=== PATIENT | female | born 1955 | race Caucasian/White ===

== ENCOUNTER → 2017-06-20 13:33 | Outpatient (CLI) | payer OTHER, SELFPAY ==
[2017-06-20 15:56] LABS: Amphetamine Urine VISTA NEGATIVE (<1000 ng/mL); Barbiturate Urine VISTA NEGATIVE (< 200 ng/mL); Benzodiazepine Urine VISTA POSITIVE (< 200 ng/mL); Cocaine Urine VISTA NEGATIVE (< 300 ng/mL); Ecstacy Urine VISTA NEGATIVE (< 500 ng/mL); Methadone Urine VISTA NEGATIVE (< 300 ng/mL); PCP Urine VISTA NEGATIVE (< 25 ng/mL); THC Urine VISTA NEGATIVE (< 50 ng/mL); Vista UDS pH Range 6
== END ==
LOC: LAB 13:38
PROVIDERS: Family Provider Preventive Medicine Occupational Medicine; PCP Preventive Medicine Occupational Medicine; Visit Provider Anesthesiology Pain Medicine
DX: F11.20 Opioid dependence, uncomplicated (principal)
CPT/HCPCS: 80307

== ENCOUNTER → 2017-07-18 13:35 | Outpatient (CLI) | payer OTHER, SELFPAY ==
--- NOTE | 2017-07-18 13:50 | RAD_ITS ---
STUDY: X-RAY - LUMBAR SPINE REASON FOR EXAM: Female, 62 years old. No known injury with pain across the lower back for one month. TECHNIQUE: 3 view(s) of the lumbar spine were obtained. COMPARISON: None FINDINGS: Normal lumbar lordosis. There is no substantial scoliosis. There is a normal alignment of the vertebrae. There is multilevel endplate spondylosis of the lumbar vertebrae. Degenerative disc changes at L5/S1 are present with compounding facet arthropathy. The soft tissue structures are unremarkable. RAD/Lumbar Spine 2 or 3 Views IMPRESSION: Endplate degenerative changes with predominant disc degenerative change at L5/S1 with compounding facet arthropathy, osseous foraminal narrowing is not excluded. Electronically Signed: Anatoliy Narvaez DO at 21:02 EDT , Service support ,
[2017-07-18 14:39] LABS: Amphetamine Urine VISTA NEGATIVE (<1000 ng/mL); Barbiturate Urine VISTA NEGATIVE (< 200 ng/mL); Benzodiazepine Urine VISTA POSITIVE (< 200 ng/mL); Cocaine Urine VISTA NEGATIVE (< 300 ng/mL); Ecstacy Urine VISTA NEGATIVE (< 500 ng/mL); Methadone Urine VISTA NEGATIVE (< 300 ng/mL); PCP Urine VISTA NEGATIVE (< 25 ng/mL); THC Urine VISTA NEGATIVE (< 50 ng/mL); Vista UDS pH Range 6
== END ==
PROVIDERS: Family Provider Preventive Medicine Occupational Medicine; PCP Preventive Medicine Occupational Medicine; Visit Provider Anesthesiology Pain Medicine
DX: F11.20 Opioid dependence, uncomplicated (principal); M54.5 Low back pain
CPT/HCPCS: 72100; 80307

== ENCOUNTER → 2018-01-06 13:40 | Outpatient (CLI) | payer MEDICARE, SELFPAY ==
--- NOTE | 2018-01-06 13:43 | BI_ITS ---
MAMMOGRAPHY - BILATERAL SCREENING REASON FOR EXAM: Female, 62 years old. Routine annual screening examination. PERTINENT HISTORY: Sister with breast cancer. Aunt with breast cancer. TECHNIQUE: Digital bilateral breast ceferino (3D mammographic acquisition) in the CC and MLO projections. 2-D mediolateral oblique (MLO) and craniocaudad (CC) views of both breasts were obtained. CAD: Full Field Digital Mammography with Computer Added Detection was performed. COMPARISON: Comparison is made with prior study dated July 31, 2012 and September 01, 2010. FINDINGS: Breast Composition: The breasts are extremely dense, which lowers the sensitivity of mammography. There are no dominant masses or suspicious calcifications. Stable small right lateral benign appearing axillary lymph nodes. No other significant abnormalities are identified. There has been no significant change since the prior study. BI/SCREENING MAMM (CAD), BILAT IMPRESSION: Stable bilateral screening mammogram. Yearly follow-up mammogram recommended. (A) ASSESSMENT CATEGORY: BIRADS Category 2: Benign. A letter regarding these results will be sent to the patient by the facility within 30 days. Approximately 10% of breast cancers are not detected by mammography. A normal mammogram should not delay biopsy of a clinically suspicious abnormality. [id number] Electronically Signed: Sb Lowry MD at 14:40 EDT Tel [phone], Service support ,
--- NOTE | 2018-01-06 14:09 | RAD_ITS ---
STUDY: X-RAY - CERVICAL SPINE REASON FOR EXAM: Female, 62 years old. Increasing pain status post cervical surgeries. TECHNIQUE: 5 view(s) of the cervical spine were obtained. COMPARISON: 11/06/2014 FINDINGS: Since previous exam, patient has had additional cervical surgery with posterior decompression between C3-C6, with multilevel lateral mass screws and posterior rods. There has been further fusion between C5 and C6. No gross complication seen related to the fixation hardware. Grossly normal alignment. There is straightening. Normal anterior atlantoaxial articulation. Normal odontoid process. Neural foraminal narrowing is seen on the right at C3-C4, and on the left at C3-C4, C4-C5, C5-C6, and C6-C7. The soft tissue structures are unremarkable. RAD/Cerv Spine 4 or 5 Views IMPRESSION: Extensive surgical and degenerative changes. No gross acute abnormality. Electronically Signed: Temo Briseno MD at 19:57 EDT , Service support ,
== END ==
PROVIDERS: Family Provider Preventive Medicine Occupational Medicine; PCP Preventive Medicine Occupational Medicine; Referring Provider Anesthesiology Pain Medicine; Visit Provider Anesthesiology Pain Medicine
DX: Z12.31 Encounter for screening mammogram for malignant neoplasm of breast (principal); M54.2 Cervicalgia
CPT/HCPCS: 72050; 77063; 77067

== ENCOUNTER → 2018-07-06 14:10 | Outpatient (CLI) | payer MEDICARE, SELFPAY ==
[2018-07-06 10:57] VITALS: BMI 33.3
== END ==
PROVIDERS: Family Provider Preventive Medicine Occupational Medicine; PCP Preventive Medicine Occupational Medicine; Referring Provider Physician Assistant; Visit Provider Physician Assistant
DX: J02.9 Acute pharyngitis, unspecified (principal)
CPT/HCPCS: 87081

== ENCOUNTER → 2018-07-11 11:04 | Outpatient (CLI) | payer MEDICARE, SELFPAY ==
[2018-07-06 10:57] VITALS: BMI 33.3
--- NOTE | 2018-07-11 11:30 | RAD_ITS ---
STUDY: X-RAY - LEFT HAND REASON FOR EXAM: Female, 63 years old. Rheumatoid arthritis. TECHNIQUE: 2 view(s) of the hand. COMPARISON: None. FINDINGS: Normal radiocarpal articulation. Normal distal radioulnar joint. Normal visualized carpal bones. Normal carpal articulations There is degenerative arthrosis of the carpometacarpal articulation of the thumb with lateral subluxation of the first metacarpus. Normal second through fifth carpometacarpal joints. Normal metacarpi. Normal metacarpophalangeal joint of the thumb. Normal interphalangeal joint of the thumb. Normal proximal and distal phalanges of the thumb. Joint space narrowing and degenerative changes at the second metacarpophalangeal joint with the degenerative spur formation along the head of the second metacarpal. Normal proximal and distal interphalangeal joints of the second through fifth fingers. Normal phalanges of the second through fifth fingers. Soft tissue swelling. RAD/Hand 2 Views IMPRESSION: Soft tissue swelling. Joint space narrowing and degenerative changes at the second metacarpophalangeal joint as well as at the first carpal metacarpal joint. Electronically Signed: Sb Lowry, at 8:15 EDT , Service support ,
--- NOTE | 2018-07-11 11:30 | RAD_ITS ---
STUDY: X-RAY - RIGHT ANKLE REASON FOR EXAM: Female, 63 years old. History of rheumatoid arthritis. TECHNIQUE: 2 view(s) of the ankle. COMPARISON: None. FINDINGS: Normal visualized distal tibia and fibula. Normal medial and lateral malleoli. Normal tibiotalar articulation and ankle mortise. Normal visualized talus and calcaneus. The visualized subtalar, talonavicular, calcaneocuboid and tarsal articulations are normal. Mild soft tissue swelling worse on the lateral side. RAD/Ankle 2 Views IMPRESSION: Mild soft tissue swelling. Electronically Signed: Sb Lowry, at 8:10 EDT , Service support ,
--- NOTE | 2018-07-11 11:30 | RAD_ITS ---
STUDY: X-RAY - LEFT ANKLE REASON FOR EXAM: Female, 63 years old. History of rheumatoid arthritis. TECHNIQUE: 2 view(s) of the ankle. COMPARISON: None. FINDINGS: Normal visualized distal tibia and fibula. Normal medial and lateral malleoli. Normal tibiotalar articulation and ankle mortise. Normal visualized talus and calcaneus. There appears to be a joint space narrowing and fusion of the distal tarsal bones. The soft tissue structures are unremarkable. RAD/Ankle 2 Views IMPRESSION: Joint space narrowing and possible fusion of the distal tarsal joints. Electronically Signed: Sb Lowry, at 8:12 EDT , Service support ,
--- NOTE | 2018-07-11 11:30 | RAD_ITS ---
STUDY: X-RAY - RIGHT HAND REASON FOR EXAM: Female, 63 years old. History of rheumatoid arthritis. TECHNIQUE: 2 view(s) of the hand. COMPARISON: None. FINDINGS: There is joint space narrowing of the radiocarpal articulation consistent with degenerative arthrosis. Normal distal radioulnar joint. Normal visualized carpal bones. Normal carpal articulations There is degenerative arthrosis of the carpometacarpal (CMC) articulation of the thumb. Normal second through fifth carpometacarpal joints. Normal metacarpi. Normal metacarpophalangeal joint of the thumb. Normal interphalangeal joint of the thumb. Normal proximal and distal phalanges of the thumb. Normal metacarpophalangeal joints of the second through fifth fingers. Normal proximal and distal interphalangeal joints of the second through fifth fingers. Normal phalanges of the second through fifth fingers. Soft tissue swelling. RAD/Hand 2 Views IMPRESSION: Degenerative changes at the first carpometacarpal joint as well as the distal radiocarpal joint. Soft tissue swelling. Electronically Signed: Sb Lowry, at 8:16 EDT , Service support ,
--- NOTE | 2018-07-11 11:30 | RAD_ITS ---
STUDY: X-RAY - LEFT FOOT CLINICAL: Female, 63 years old. History of rheumatoid arthritis. TECHNIQUE: 2 view(s) of the foot. COMPARISON: None. FINDINGS: Normal talus, calcaneus, and tarsal bones. The temporal joint space narrowing of the tarsometatarsal joints especially at the first second and third tarsometatarsal joints. Normal metatarsi. There is degenerative arthrosis of the metatarsophalangeal joint of the hallux with a hallux valgus deformity. Normal tibial and fibular sesamoid bones. Normal interphalangeal joint of the great toe. Normal phalanges of the great toe. Normal second through fifth metatarsophalangeal joints. Normal interphalangeal joints and phalanges of the lesser toes. Mild soft tissue swelling. RAD/Foot 2 Views IMPRESSION: Joint space narrowing and possible effusion of the first tarsometatarsal joints. Electronically Signed: Sb Lowry, at 8:14 EDT , Service support ,
--- NOTE | 2018-07-11 11:30 | RAD_ITS ---
STUDY: X-RAY - LEFT SHOULDER REASON FOR EXAM: Female, 63 years old. History of rheumatoid arthritis. TECHNIQUE: 4 view(s) of the shoulder. COMPARISON: None. FINDINGS: There is moderate degenerative arthrosis of the glenohumeral articulation. Normal acromioclavicular joint. Normal acromion. Degenerative spurring along the medial aspect of the surgical neck of the humerus. Prior fusion in the lower cervical spine. The soft tissue structures are unremarkable. Normal visualized pulmonary apex. RAD/Shoulder min 2 Views IMPRESSION: Glenohumeral osteoarthritis. Electronically Signed: Sb Lowry, at 8:17 EDT , Service support ,
--- NOTE | 2018-07-11 11:31 | RAD_ITS ---
STUDY: X-RAY - RIGHT FOOT CLINICAL: Female, 63 years old. Rheumatoid arthritis. TECHNIQUE: 2 view(s) of the foot. COMPARISON: None. FINDINGS: Limited exam, only 2 views. No active erosions are seen. Degenerative type changes are seen of the first metatarsophalangeal joint and some periarticular soft tissue calcifications are noted which may be from previous arthropathy. Mild hallux valgus. Mild degenerative changes of the midfoot. Normal hindfoot. Normal soft tissues. RAD/Foot 2 Views IMPRESSION: Limited 2 view study of the foot shows no evidence for acute/active erosive arthropathy. Mild hallux valgus. Degenerative changes of the first metatarsophalangeal joint. Electronically Signed: Temo Briseno MD at 19:58 EDT , Service support ,
[2018-07-11 12:34] LABS: AST(SGOT) 32 U/L (15-37); Alanine Aminotransfer ALT/SGPT 48 U/L (13-56); Albumin, Serum 3.8 g/dL (3.2-5.0); Alkaline Phosphatase 71 U/L (45-117); Bilirubin, Direct 0.27 mg/dL (0.00-0.30); CRP 4.85 mg/L (0.0-3.0); EST Glomerular Filtration Rate 91 mL/min (>60); Est Glom Filt Rate - Afr Amer 110 mL/min (>60); Globulin 2.9 g/dL (2.2-4.2); Protein, Total 6.7 g/dL (6.4-8.2); Rheumatoid Factor < 10.0 IU/mL (<15)
[2018-07-14 05:07] LABS: HEPATITIS B SURFACE AG Negative (Negative); QNTFERON TB Mitogen Value > 10.00 IU/mL (.); QNTFERON TB Nil Value 0.02 IU/mL (.); QNTFERON TB1+ Ag Value 0.04 IU/mL (.); QNTFERON TB2+ Ag Value 0.02 IU/mL (.)
[2018-07-14 12:23] LABS: CCP IgG Antibodies 7 units (0-19); Hep B Surface Antibodies Non Reactive (.); Hep C Antibodies <0.1 s/co ratio (0.0-0.9); Hepatitis B Core Ab Total Negative (Negative); QNTIFERON TB Positive Criteria Negative (Negative)
== END ==
PROVIDERS: Family Provider Preventive Medicine Occupational Medicine; PCP Preventive Medicine Occupational Medicine; Referring Provider Internal Medicine Rheumatology; Visit Provider Internal Medicine Rheumatology
DX: E55.9 Vitamin D deficiency, unspecified (principal); M06.00 Rheumatoid arthritis without rheumatoid factor, unspecified site; M25.512 Pain in left shoulder; Z79.899 Other long term (current) drug therapy
CPT/HCPCS: 36415; 73030; 73120; 73600; 73620; 80076; 82306; 82565; 86140; 86200; 86431; 86480; 86704; 86706; 86803; 87340

== ENCOUNTER → 2018-08-12 | Outpatient (CLI) | payer MEDICARE, SELFPAY ==
[2018-07-06 10:57] VITALS: BMI 33.3
--- NOTE | 2018-08-12 11:00 | RAD_ITS ---
STUDY: X-RAY - LEFT SHOULDER REASON FOR EXAM: Female, 63 years old. Left shoulder pain TECHNIQUE: 4 view(s) of the shoulder. COMPARISON: None. FINDINGS: There is mild degenerative arthrosis of the glenohumeral articulation. There is degenerative arthrosis of the acromioclavicular joint without inferior osseous spur formation. Normal acromion. 2 calcified intra-articular loose bodies are seen in the subcoracoid recess measuring 7 mm each. Normal humeral head and visualized proximal humerus. The soft tissue structures are unremarkable. Normal visualized pulmonary apex. RAD/Shoulder min 2 Views IMPRESSION: Degenerative arthrosis of the shoulder. Electronically Signed: Edward Olivia, at 1:46 EDT Tel , Service support ,
--- NOTE | 2018-08-12 11:00 | RAD_ITS ---
STUDY: X-RAY - RIGHT SHOULDER REASON FOR EXAM: Female, 63 years old. Shoulder pain TECHNIQUE: 4 view(s) of the shoulder. COMPARISON: None. FINDINGS: There is severe degenerative arthrosis of the glenohumeral articulation. There is degenerative arthrosis of the acromioclavicular joint without inferior osseous spur formation. Normal acromion. Normal humeral head and visualized proximal humerus. The soft tissue structures are unremarkable. Normal visualized pulmonary apex. RAD/Shoulder min 2 Views IMPRESSION: Degenerative arthrosis of the shoulder. Electronically Signed: Edward Olivia, at 3:21 EDT Tel , Service support ,
--- NOTE | 2018-08-12 11:00 | RAD_ITS ---
STUDY: X-RAY - RIGHT KNEE REASON FOR EXAM: Female, 63 years old. Knee pain TECHNIQUE: 4 view(s) of the knee. COMPARISON: None. FINDINGS: Normal visualized distal femur. Normal visualized proximal tibia and fibula. Normal proximal tibiofibular articulation. There is moderate degenerative arthrosis of the medial femorotibial compartment with moderate joint space narrowing. There is mild degenerative arthrosis of the lateral femorotibial compartment. There is severe degenerative arthrosis of the patellofemoral articulation. There are calcifications of the medial and lateral menisci are consistent with chondrocalcinosis. The soft tissue structures are unremarkable. RAD/Knee 4 or More Views IMPRESSION: Degenerative arthrosis. Chondrocalcinosis. Electronically Signed: Edward Olivia, at 5:19 EDT Tel , Service support ,
--- NOTE | 2018-08-12 11:00 | RAD_ITS ---
STUDY: X-RAY - LEFT KNEE REASON FOR EXAM: Female, 63 years old. Osteoarthritis. Knee pain TECHNIQUE: 4 view(s) of the knee. COMPARISON: None. FINDINGS: Normal visualized distal femur. Normal visualized proximal tibia and fibula. Normal proximal tibiofibular articulation. There is a left knee arthroplasty in good alignment. There is a small joint effusion. The soft tissue structures are unremarkable. RAD/Knee 4 or More Views IMPRESSION: There is a left knee arthroplasty in good alignment. There is a small joint effusion. Electronically Signed: Edward Olivia, at 5:29 EDT Tel , Service support ,
--- NOTE | 2018-08-12 11:00 | RAD_ITS ---
STUDY: X-RAY - PELVIS AND BILATERAL HIPS REASON FOR EXAM: Female, 63 years old. Hip pain osteoarthritis. TECHNIQUE: AP view of the pelvis.? 2 views of the right hip, and 2 views of the left hip were obtained. COMPARISON: None. FINDINGS: There is a non-specific bowel gas pattern. Normal visualized soft tissue structures. There is narrowing with cortical sclerosis and osteophyte formation of the sacroiliac joint consistent with degenerative osteoarthritic changes. Normal bilateral superior and inferior pubic rami. There are degenerative changes of the pubic symphysis with articular narrowing and sclerosis. Normal bilateral ischial tuberosities. There are osteoarthritic changes of the right femoral head with marginal osteophyte formation. Normal right acetabulum. Normal right hip joint. Normal visualized left femoral head. Normal left acetabulum. Normal left hip joint. RAD/Hips B/L min 2 views w/ Pelvis IMPRESSION: Degenerative arthrosis of the right hip joint.. Electronically Signed: Edward Olivia, at 4:11 EDT Tel , Service support ,
[2018-08-12 11:25] LABS: Erythrocyte Sedimentation Rate < 1 mm/hr (0-30)
[2018-08-12 11:43] LABS: Bilirubin, Direct 0.31 mg/dL (0.00-0.30); CRP < 2.90 mg/L (0.0-3.0)
== END | disposition home or self-care (01) ==
PROVIDERS: Family Provider Preventive Medicine Occupational Medicine; PCP Preventive Medicine Occupational Medicine; Referring Provider Internal Medicine Rheumatology; Visit Provider Internal Medicine Rheumatology
DX: R79.82 Elevated C-reactive protein (CRP) (principal); E80.7 Disorder of bilirubin metabolism, unspecified; M15.0 Primary generalized (osteo)arthritis
CPT/HCPCS: 36415; 73030; 73521; 73564; 82247; 82248; 85652; 86140

== ENCOUNTER → 2019-12-12 13:02 | Outpatient (CLI) | payer MEDICARE, SELFPAY ==
[2019-05-28 09:44] VITALS: BMI 33.3
== END ==
PROVIDERS: PCP Preventive Medicine Occupational Medicine; Referring Provider Internal Medicine Critical Care Medicine; Visit Provider Internal Medicine Critical Care Medicine
DX: G47.33 Obstructive sleep apnea (adult) (pediatric) (principal)
CPT/HCPCS: 95806

== ENCOUNTER 2020-01-08 17:02 | Emergency (ER) | payer MEDICARE, SELFPAY ==
[2019-05-28 09:44] VITALS: BMI 33.3
[2020-01-08] VITALS (14 sets, daily range): BP systolic 90–113; BP diastolic 60–70; PULSE 91–97; RESP 14–25; TEMP 37.9–39.4; O2SAT 95–100; BMI 32.0
--- NOTE | 2020-01-08 17:33 | EKG12_ITS ---
Test Reason : GEN ILLNESS Blood Pressure : / mmHG Vent. Rate : 099 BPM Atrial Rate : 099 BPM P-R Int : 158 ms QRS Dur : 086 ms QT Int : 354 ms P-R-T Axes : 050 029 134 degrees QTc Int : 454 ms Normal sinus rhythm ST & T wave abnormality, consider anterolateral ischemia Abnormal ECG Confirmed by ANDREW ZULUAGA, KATLIN ([id number]), editorial intern DEVANG JANE ([id number]) on 01/15/2020 9:02:20 AM Referred By: EDILIA Confirmed By:SINDHU MORALES MD
--- NOTE | 2020-01-08 17:40 | ED.DCSUM_ITS ---
History of Present Illness Chief Complaint: General Illness Informant: Patient Narrative: Patient is a 64-year-old female who presents to the emergency department for right lower extremity pain. She states that she has not been able to ambulate on it since Tuesday. 1-1/2 weeks ago she had a triple coronary artery bypass graft performed. She states that they did go through her right groin to tie it off. She has had some bruising around the area. She denies any significant swelling. Upon arrival she was found to have a fever. Patient did not realize that she had this prior to coming in. She denies abdominal pain or chest pain. She denies any shortness of breath. She has had some lower back pain but relates that to lying down for the past few days. She has been taking her home pain medication including oxycodone which have not been giving her significant relief. Any movements does make the pain worse. She denies any loss of sensation. No history of DVT/PE. Past Medical History - Allergies and Home Meds Allergies/Adverse Reactions: Allergies sulfamethoxazole [From Bactrim] Allergy (Verified 01/08/20 17:06) Rash trimethoprim [From Bactrim] Allergy (Verified 01/08/20 17:06) Rash Primary Care Physician: John Centeno DO [Primary Care Provider] - Prior records reviewed: Yes Surgical History: no surgical history Smoking Status: Former smoker Review of Systems All systems negative except as indicated General: Denies: Chills, Fever, Sweats Eyes: Denies: Visual changes - bilaterally, Diplopia ENT: Denies: Rhinorrhea, Sore throat Cardiovascular: Denies: Chest pain, Palpitations Respiratory: Denies: Dyspnea, Cough, Dyspnea on exertion Gastrointestinal: Denies: Abdominal pain, Nausea, Vomiting, Diarrhea Genitourinary: Denies: Dysuria, Hematuria, Frequency Musculoskeletal: Reports: Back pain, Extremity Pain Skin: Denies: Rash, Wounds Neurological: Denies: Headache, Weakness, Numbness Physical Exam Vital Signs/Narrative: Vital Signs Temp Pulse Resp BP Pulse Ox 01/08/20 17:02 102.9 F H 96 25 H 100/70 95 Inital Vital Signs reviewed: Yes General: Well nourished, Well developed, No Acute Distress Head: Normocephalic, Atraumatic Eyes: Perrl, EOMI ENT: Moist mucous membranes, No rhinorrhea Neck: Supple, Nontender Cardiovascular: Regular rate, Regular rhythm, No murmurs Respiratory: No distress, CTA bilaterally, Chest nontender Abdomen: Soft, Nontender, Nondistended, Normal bowel sounds Back: Nontender, Normal Inspection Extremities: Tenderness - She does have tenderness all the way from the upper thigh down to the foot. No crepitus appreciable. She does have bruising along the medial aspect of the thigh. No overlying skin changes. No palpable abscess. She is neurovascularly intact. She does have significant pain when trying to move each of the joints. Skin: Normal color, No rash Neurological: Alert, Oriented x3, Cranial nerves II-XII grossly intact, Normal Strength, Normal Sensation Psychological: Normal affect, Normal Mood Diagnostic/Tx/Re-eval - EKG Initial EKG Interpretation: - - Rate of 99 bpm and normal sinus rhythm. Normal intervals. She does have T wave inversions with minimal ST depressions in anterior lateral leads. No significant ST elevations. Inverted T wave in 1 and aVL. No prior EKG for comparison. - Medical Decision Making Patient presents emerge department for right lower extremity pain. Upon arrival to the ED she was found to have a fever. Ultrasound being obtained to evaluate for DVT. I do have concern for infection at this time as well given her recent invasive procedure and temperature. Basic lab work along with blood cultures and lactic being obtained. Patient started on IV fluids. We will give a dose of Tylenol. Patient's ultrasound did not show any evidence of acute blood clot. CT scan was then performed to evaluate for abscess. There was a soft tissue collection that was thought to be a hematoma as opposed to abscess. She does have a leukocytosis. Troponin is elevated. We will trend this. This could be from the recent CABG procedure. Patient started on broad-spectrum antibiotics given her fever, leukocytosis and significant leg pain. She does not have any spinal tenderness. At this time low concern for epidural abscess but is on the differential. I called to discuss the case with the hospitalist who recommended that she be transferred back to [facility] given the fact she just had the surgery there. I did call and discussed the case and patient will be transferred. Accepting doctor is Dr. Alvarado. Otherwise do not have an exact source of patient's infection. She will require further evaluation and management. This has all been discussed with the patient. She understands and is agreeable this plan. She did have some low blood pressure readings but has been fluctuating. She has been on IV fluids and asymptomatic with the mildly low blood pressure readings. ED Disposition - Plan for ED Patient: Disposition: [facility] Diagnosis: SIRS (systemic inflammatory response syndrome), Leg pain, Leg hematoma, Fever, Elevated troponin Referrals: John Centeno DO [Primary Care Provider] -
--- NOTE | 2020-01-08 17:47 | US_ITS ---
STUDY: VENOUS DOPPLER ULTRASOUND - RIGHT LOWER EXTREMITY REASON FOR EXAM: Female, 64 years old. S/P TRIPLE BYPASS SURGERY.. NOW WITH RT LEG PAIN UNABLE TO WALK FEVER TECHNIQUE: Ultrasound evaluation of the deep vein system to include vega-scale imaging and compression was performed. Vega-scale imaging and Doppler sonographic evaluation, including duplex spectral analysis and qualitative color flow sonography, was performed. COMPARISON: None. FINDINGS: Common Femoral Vein: Normal compression, spontaneity and augmentation. Normal color Doppler. Common Femoral Vein/Greater Saphenous Junction: Normal compression, spontaneity and augmentation. Normal color Doppler. Deep Femoral Vein: Normal compression, spontaneity and augmentation. Normal color Doppler. Femoral Proximal: Normal compression, spontaneity and augmentation. Normal color Doppler. Femoral Middle: Normal compression, spontaneity and augmentation. Normal color Doppler. Femoral Distal: Normal compression, spontaneity and augmentation. Normal color Doppler. Popliteal Vein: Normal compression, spontaneity and augmentation. Normal color Doppler. Posterior Tibial Vein: Normal compression, spontaneity and augmentation. Normal color Doppler. Peroneal Vein: Normal compression, spontaneity and augmentation. Normal color Doppler. There is a nonvascular complex mass in the right medial thigh approximately 1.1 cm from the common femoral vein US/Venous Duplex Imag/Limited/Uni IMPRESSION: No evidence for deep venous thrombosis Incidental finding of complex mass in the right medial thigh measuring approximately 1.[address] with contrast would be helpful for further evaluation if clinically warranted. Electronically Signed: James Phipps MD at 18:50 EDT , Service support ,
[2020-01-08 17:52] LABS: Absolute Lymphocyte Count 1.83 X10^3/uL (0.83-4.51); Absolute Neutrophil Count 13.7 X10^3/uL (2.0-7.7); Basophil# 0.04 X10^3/uL; Basophil% 0.2 % (0-1); Eosinophil# 0.07 X10^3/uL; Eosinophils% 0.4 % (0-5); Hematocrit 27.3 % (37-47); Hemoglobin 9.3 g/dL (12.0-15.0); Lymphocyte # 1.83 X10^3/ul (4.0); Lymphocyte % 10.5 % (19-41); Mean Corp Hgb Conc 34.1 g/dL (32-36); Mean Corpuscular Hgb 30.9 pg (27.0-32.0); Mean Corpuscular Volume 90.7 fL (81-99); Mean Platelet Vol. 9.5 fl (6.2-12.0); Monocyte# 1.65 X10^3/uL; Monocyte% 9.5 % (0-10); NRBC Flagged by Analyzer 0 % (0-5); Neutrophil % 79.1 % (47-70); POSITIVE DIFFERENTIAL YES; POSITIVE MORPHOLOGY YES; Platelet Count 493 K/mm3 (150-450); RBC Distribution Width CV 13.7 % (11.6-14.6); RBC Distribution Width SD 45.2 fl (35.1-43.9); Red Blood Count 3.01 M/mm3 (4.2-5.4); White Blood Count 17.4 K/mm3 (4.4-11.0)
[2020-01-08 17:54] LABS: Differential Indicated SCAN CRITERIA MET
[2020-01-08] MEDS: 0.9% Normal Saline 1,000 ML 999 ML IV ×2 (18:01→21:08)
[2020-01-08] MEDS: Acetaminophen 325 MG Tablet 650 MG PO (18:01)
[2020-01-08 18:10] LABS: Differential Comment SCANNED
[2020-01-08 18:12] LABS: ALB/GLOB Ratio 0.7 RATIO (0.9-2.4); AST(SGOT) 33 U/L (15-37); Alanine Aminotransfer ALT/SGPT 13 U/L (13-56); Alkaline Phosphatase 88 U/L (45-117); Anion Gap 6 (5-15); BUN 8 mg/dL (7-18); BUN/Creat Ratio 12.4 RATIO (10-20); Calcium,Total 9.1 mg/dL (8.5-10.1); Chloride 98 mmol/L (98-107); Creatinine, Serum 0.65 mg/dL (0.55-1.02); EST Glomerular Filtration Rate 98 mL/min (>60); Est Glom Filt Rate - Afr Amer 119 mL/min (>60); Globulin 4.4 g/dL (2.2-4.2); Glucose 107 mg/dL (74-106); Potassium 4.3 mmol/L (3.5-5.1); Protein, Total 7.4 g/dL (6.4-8.2); Sodium Level 130 mmol/L (136-145)
--- NOTE | 2020-01-08 18:25 | NURSING ---
UNABLE TO ADMINISTER ANTIBIOTICS AT THIS TIME DUE TO PATIENT BEING IN IMAGING.
[2020-01-08] MEDS: Cefazolin 2 GM in 0.9% Normal Saline 100 ML IV (18:33)
--- NOTE | 2020-01-08 18:54 | CT_ITS ---
CT of the right thigh with IV contrast INDICATION: Bruising fever status post CABG TECHNIQUE: CT of the right thigh was performed in the axial plane following IV contrast administration followed by sagittal and coronal reconstructions. Radiographic technique was optimized to limit patient radiation dose. DLP was 2 1809.27 FINDINGS: Femoral shaft is well-mineralized without evidence for acute fracture. No lytic destructive changes are seen to suggest acute osteomyelitis. Within the subcutaneous fat of the medial thigh there is a soft tissue mass measuring approximately 2 x 2.1 x 8 cm which demonstrates slightly hyperattenuated density possibly resorbing hematoma. There are no air bubbles or thick-walled enhancement to suggest focal abscess. This structure is not clearly vascular but appears to be contiguous with greater saphenous vein and thrombosed vein cannot be entirely excluded. IMPRESSION Soft tissue density in the right medial thigh of indeterminate etiology probably representing thrombosed greater saphenous vein. No evidence for abscess: Electronically Signed: James Phipps MD at 20:04 EDT , Service support , CT/Extremity Lower WITH Contrast
[2020-01-08] MEDS: Morphine 4 MG/ML Syringe IV ×2 (19:33→22:45)
--- NOTE | 2020-01-08 20:30 | RAD_ITS ---
STUDY: X-RAY CHEST REASON FOR EXAM: Female, 64 years old. had triple bypass on . pt having leg pain and unable to walk since sun. now has a fever. TECHNIQUE: AP portable COMPARISON: None. FINDINGS: The lungs are clear and expanded. There is no demonstrated pleural abnormality. Normal size heart. Normal mediastinum and libia. Normal visualized pulmonary arteries. Normal visualized aortic arch and descending thoracic aorta. Postop change status post median sternotomy and CABG Dorsal spine and shoulders demonstrate degenerative change. Normal visualized ribs, clavicles, and shoulders. Status post cervical fusion. There is no demonstrated abnormality of the visualized soft tissue structures of the upper abdomen. RAD/Chest 1 View (Portable) IMPRESSION: Status post median sternotomy and CABG.. No acute disease Electronically Signed: James Phipps MD at 20:50 EDT , Service support ,
--- NOTE | 2020-01-08 23:53 | ED.RN ---
attempted to give report, had to leave phone number as rn at [facility] could not be found.
[2020-01-09 12:55] LABS: Pathologist Review Reviewed
== END 2020-01-09 00:02 | disposition short-term general hospital (02) ==
PROVIDERS: Emergency Provider Emergency Medicine; PCP Preventive Medicine Occupational Medicine
DX: S70.11XA Contusion of right thigh, initial encounter (principal); R65.10 Systemic inflammatory response syndrome (SIRS) of non-infectious origin without acute organ dysfunction; R50.9 Fever, unspecified; M79.604 Pain in right leg; R79.89 Other specified abnormal findings of blood chemistry; Z95.1 Presence of aortocoronary bypass graft; Z87.891 Personal history of nicotine dependence; X58.XXXA Exposure to other specified factors, initial encounter; Y93.9 Activity, unspecified; Y92.89 Other specified places as the place of occurrence of the external cause; Y99.8 Other external cause status
CPT/HCPCS: 71045; 73701; 80053; 83605; 84484; 85025; 87040; 93005; 93971; 96361; 96365; 96366; 96367; 96375; 96376; 99285; J7030; J7040; J7050; Q9967; A4216

== ENCOUNTER 2020-02-06 09:34 | Emergency (ER) | payer MEDICARE, SELFPAY ==
[2020-01-08 17:02] VITALS: BMI 32.0
[2020-02-06 09:34] VITALS: BP 140/77; PULSE 62; RESP 16; TEMP 37.2; O2SAT 97; BMI 29.9
[2020-02-06 09:37] VITALS: BP 104/77; PULSE 64; RESP 17; TEMP 37.2; O2SAT 96
--- NOTE | 2020-02-06 09:41 | EKG12_ITS ---
Test Reason : CP Blood Pressure : / mmHG Vent. Rate : 060 BPM Atrial Rate : 060 BPM P-R Int : 152 ms QRS Dur : 080 ms QT Int : 418 ms P-R-T Axes : 052 014 098 degrees QTc Int : 418 ms Normal sinus rhythm T wave abnormality, consider anterolateral ischemia Abnormal ECG Confirmed by ANDREW ZULUAGA, KATLIN ([id number]), editor managing director DANIELLE VELIZ ([id number]) on 02/14/2020 12:12:56 PM Referred By: ROSSY Confirmed By:SINDHU MORALES MD
--- NOTE | 2020-02-06 09:43 | ED.VIS.GEN ---
History of Present Illness Chief Complaint: Chest Pain Detail of Chief Complaint: Pain with radiation left side of the neck similar to pain prior to triple b Informant: Patient Onset: Today, Hours - Onset 0300 Context: Sudden Onset Timing: Continuous Quality: Left-sided chest discomfort Current Severity: Mild Maximum Severity: Moderate Worsened by: Nothing Relieved by: Nothing Associated Symptoms: Radiation to left side Narrative: Patient is 64-year-old woman with history hypertension, hypercholesterolemia and strong family history and former smoker who underwent three-vessel bypass surgery at [facility] on December 26. She presents because at 299 she developed left-sided chest discomfort that radiated to her left neck and so much of the pain she had prior to her bypass surgery. There was no associated symptoms. The chest discomfort is not made worse with walking and there is no dyspnea on exertion. She denies leg swelling or discoloration. She does report pain where they harvested graft site medial right knee. The pain is not pleuritic. She has no other associated symptoms. She did take her aspirin and Plavix this morning. Prior similar symptoms: Yes - Prior to three-vessel bypass surgery. Recent Illness/Hospitalization: Yes - Past Medical History (1) Coronary artery disease Status: Acute (2) Gastroenteritis Status: Acute (3) Benign hypertension Status: Chronic (4) Diverticulosis of colon without diverticulitis Status: Chronic (5) GERD (gastroesophageal reflux disease) Status: Chronic (6) History of depression Status: Chronic (7) Hyperlipidemia Status: Chronic (8) ETHAN (obstructive sleep apnea) Status: Suspected Past Medical History - Allergies and Home Meds Allergies/Adverse Reactions: Allergies sulfamethoxazole [From Bactrim] Allergy (Verified 02/06/20 09:42) Rash trimethoprim [From Bactrim] Allergy (Verified 02/06/20 09:42) Rash Primary Care Physician: John Centeno DO [Primary Care Provider] - Prior records reviewed: Yes Surgical History: coronary bypass surgery Lives: Spouse/ Significant Other Smoking Status: Former smoker Alcohol: None Drugs: None Review of Systems General: Denies: Chills, Fever, Sweats Eyes: Denies: Visual changes - bilaterally, Blurred Vision - bilaterally, Diplopia ENT: Denies: Rhinorrhea, Sore throat Cardiovascular: Reports: Chest pain. Denies: Palpitations, Heart racing, -, - Respiratory: Denies: Dyspnea, Cough, Dyspnea on exertion, Orthopnea, Paroxysmal nocturnal dyspnea Gastrointestinal: Denies: Abdominal pain, Nausea, Vomiting, Diarrhea, Melena, Hematochezia Genitourinary: Denies: Dysuria, Hematuria, Frequency Musculoskeletal: Reports: Extremity Pain. Denies: Myalgias, Arthralgias, Neck pain, Back pain, Swelling Skin: Denies: Rash, Wounds Neurological: Denies: Headache, Weakness, Numbness Psych: Denies: Anxiety Endocrine: Denies: Polyuria, Polydipsia Hematologic: Denies: Easy bruising, Easy bleeding Allergy: Denies: Uticaria Physical Exam Vital Signs/Narrative: Vital Signs Temp Pulse Resp BP Pulse Ox 02/06/20 09:37 98.9 F 64 17 104/77 96 02/06/20 09:34 98.9 F 62 16 140/77 H 97 Inital Vital Signs reviewed: Yes General: Well nourished, Well developed, No Acute Distress Head: Normocephalic, Atraumatic Eyes: Perrl, EOMI, Pale conjunctiva, Scleral icterus ENT: Moist mucous membranes, No rhinorrhea Neck: Supple, Nontender, No lymphadenopathy, No JVD Cardiovascular: Regular rate, Regular rhythm, No murmurs, Normal S1, Normal S2 Respiratory: No distress, CTA bilaterally, Chest nontender Abdomen: Soft, Nontender, Nondistended, Normal bowel sounds Back: Nontender, Normal Inspection Extremities: Nontender, No edema, - - Graft site noted and unremarkable. There is no asymmetry, swelling, discoloration, leg vein distention, palpable cords or tenderness along the distribution of the deep venous system. Skin: Normal color, No rash Neurological: Alert, Oriented x3, Cranial nerves II-XII grossly intact, Normal Strength, Normal Sensation Psychological: Normal affect, Normal Mood Diagnostic/Tx/Re-eval Chest X-Ray - ED: 1 View, Read by ED Physician, - - Single view chest x-ray reveals no evidence of congestive heart failure, pneumonia, effusion, pneumothorax. There is no change from prior dated December 08. Impressions Chest X-Ray 02/06/20 10:25 IMPRESSION: Hyperinflation. The lungs are clear. Electronically Signed: Sb Lowry, at 10:39 EDT , Service support , 02/06/20 10:25 Chest 1 View (Portable) [RAD] Stat Laboratory Results 02/06/20 02/06/20 02/06/20 10:00 10:00 12:40 WBC 6.6 RBC 3.66 L Hgb 10.7 L Hct 33.3 L MCV 91.0 MCH 29.2 MCHC 32.1 RDW Std Deviation 49.8 H RDW Coeff of Derrick 14.9 H Plt Count 218 MPV 9.2 Immature Gran % (Auto) 0.300 Neut % (Auto) 66.2 Lymph % (Auto) 25.6 [place] % (Auto) 7.5 Eos % (Auto) 0.2 Baso % (Auto) 0.2 Absolute Neuts (auto) 4.4 Absolute Lymphs (auto) 1.70 Nucleated RBC % 0 Sodium 140 Potassium 4.0 Chloride 108 H Carbon Dioxide 25.0 Anion Gap 7 BUN 9 Creatinine 0.62 Estim Creat Clear Calc 79.16 Est GFR (MDRD) Af Amer 125 Est GFR (MDRD) Non-Af 103 BUN/Creatinine Ratio 14.5 Glucose 95 Calcium 8.9 Troponin I < 0.015 < 0.015 3-hour troponin is normal and delta is 0. Therefore plan is to discharge to home. - EKG Initial EKG Interpretation: Sinus Rhythm - Sinus rhythm with a ventricular rate of 60. CT interval is 102 ms. Cures duration 80 ms. QT duration 418 ms. [place] is normal. There is evidence of anterolateral ischemic changes. This is improved from EKG that was obtained on January 08, 2020. Prior: Changed Follow-up EKG Interpretation: Sinus Rhythm - Normal sinus rhythm with ventricular rate of 66. CT interval 104 ms. QS duration 80 ms. QT duration 390 ms. [place] is normal. There is anterolateral T wave abnormality. This is unchanged from the EKG performed 3 hours prior. - Medical Decision Making Will evaluate for cardiac versus noncardiac causes of chest pain. ED Disposition - Plan for ED Patient: Disposition: Home or Assisted Living Diagnosis: Left-sided chest pain, History of coronary artery disease Instructions: ED Chest Pain Atypical Unkn Cause, ED Chest Pain NonCardiac Referrals: John Centeno DO [Primary Care Provider] - 3-5 Days if not improving
[2020-02-06 10:10] VITALS: O2SAT 97
[2020-02-06 10:25] LABS: Absolute Neutrophil Count 4.4 X10^3/uL (2.0-7.7); Basophil# 0.01 X10^3/uL; Basophil% 0.2 % (0-1); Eosinophil# 0.01 X10^3/uL; Eosinophils% 0.2 % (0-5); Hematocrit 33.3 % (37-47); Hemoglobin 10.7 g/dL (12.0-15.0); Lymphocyte % 25.6 % (19-41); Mean Corp Hgb Conc 32.1 g/dL (32-36); Mean Corpuscular Hgb 29.2 pg (27.0-32.0); Mean Platelet Vol. 9.2 fl (6.2-12.0); Monocyte% 7.5 % (0-10); NRBC Flagged by Analyzer 0 % (0-5); Neutrophil % 66.2 % (47-70); Platelet Count 218 K/mm3 (150-450); RBC Distribution Width CV 14.9 % (11.6-14.6); RBC Distribution Width SD 49.8 fl (35.1-43.9); Red Blood Count 3.66 M/mm3 (4.2-5.4); White Blood Count 6.6 K/mm3 (4.4-11.0)
--- NOTE | 2020-02-06 10:25 | RAD_ITS ---
STUDY: X-RAY CHEST REASON FOR EXAM: Female, 64 years old. Chest pain since 3am triple bypass on the Dec TECHNIQUE: Single AP portable view of the chest. COMPARISON: Comparison is made with prior examination dated 01/08/2020. FINDINGS: EKG electrodes are seen. Hyperinflation. There is no demonstrated pleural abnormality. Sternal cerclage wires and vascular clips are present from a prior sternotomy and coronary artery bypass graft procedure (CABG). Normal mediastinum and libia. Normal visualized pulmonary arteries. Normal visualized aortic arch and descending thoracic aorta. Normal visualized thoracic spine. There is degenerative osteoarthritis of the bilateral shoulders. Prior fusion in the lower cervical spine. There is no demonstrated abnormality of the visualized soft tissue structures of the upper abdomen. RAD/Chest 1 View (Portable) IMPRESSION: Hyperinflation. The lungs are clear. Electronically Signed: Sb Lowry, at 10:39 EDT , Service support ,
[2020-02-06 10:44] LABS: Anion Gap 7 (5-15); BUN 9 mg/dL (7-18); BUN/Creat Ratio 14.5 RATIO (10-20); Calcium,Total 8.9 mg/dL (8.5-10.1); Chloride 108 mmol/L (98-107); Creatinine, Serum 0.62 mg/dL (0.55-1.02); EST Glomerular Filtration Rate 103 mL/min (>60); Est Glom Filt Rate - Afr Amer 125 mL/min (>60); Estimated Creatinine Clearance 79.16 ml/min; Glucose 95 mg/dL (74-106); Sodium Level 140 mmol/L (136-145)
[2020-02-06 11:03] VITALS: BP 135/82; PULSE 66; RESP 18; O2SAT 99
--- NOTE | 2020-02-06 12:45 | EKG12_ITS ---
Test Reason : REPEAT Blood Pressure : / mmHG Vent. Rate : 066 BPM Atrial Rate : 066 BPM P-R Int : 164 ms QRS Dur : 080 ms QT Int : 390 ms P-R-T Axes : 054 012 111 degrees QTc Int : 408 ms Normal sinus rhythm T wave abnormality, consider anterolateral ischemia Abnormal ECG Confirmed by ANDREW ZULUAGA, KATLIN ([id number]), school photograph editor DANIELLE VELIZ ([id number]) on 02/14/2020 12:13:08 PM Referred By: AURELIANO Confirmed By:SINDHU MORALES MD
[2020-02-06 13:02] VITALS: BP 148/84; PULSE 69; RESP 15; O2SAT 99
[2020-02-06 13:42] VITALS: BP 164/85; PULSE 74; RESP 20; O2SAT 99
== END 2020-02-06 13:42 | disposition home or self-care (01) ==
PROVIDERS: Emergency Provider Emergency Medicine; PCP Preventive Medicine Occupational Medicine
DX: R07.89 Other chest pain (principal); I25.10 Atherosclerotic heart disease of native coronary artery without angina pectoris; I10 Essential (primary) hypertension; K21.9 Gastro-esophageal reflux disease without esophagitis; E78.5 Hyperlipidemia, unspecified; Z95.1 Presence of aortocoronary bypass graft; Z79.02 Long term (current) use of antithrombotics/antiplatelets; Z87.891 Personal history of nicotine dependence
CPT/HCPCS: 71045; 80048; 84484; 85025; 93005; 99283; A4216

== ENCOUNTER → 2020-03-12 10:10 | Outpatient (CLI) | payer MEDICARE, SELFPAY ==
[2020-02-25 14:22] VITALS: BMI 30.5
--- NOTE | 2020-03-12 10:27 | PCM.CR.HP2 ---
CR - History & Physical - General Arrival date:: 03/12/20 Arrival time:: 10:29 Date of Referral:: 02/21/20 Date of CR Evaluation:: 03/12/20 Referring Physician: Dr. Humberto Salmeron Primary Diagnosis: CABG Z95.1 - History of Present Cardiac Event Onset Date: Enter Onset Date of cardiac illnesses in Comment field below Coronary Artery Bypass Graft:: Yes - 12/27/2019 Were there any complications?: ran a fever - Medications Home Medications: Ambulatory Orders Medication Instructions Recorded Pantoprazole Sodium [Protonix] 20 mg PO DAILY 02/24/13 atorvastatin 20 mg tablet 80 mg PO DAILY 07/06/18 gabapentin 100 mg capsule 1,200 mg PO TID 07/06/18 alprazolam 0.5 mg tablet 0.5 mg PO TID PRN PRN 05/25/19 aspirin 81 mg tablet,delayed 81 mg PO DAILY 05/25/19 release calcium carbonate 500 mg calcium 500 mg PO BID 05/25/19 (1,250 mg) tablet duloxetine 60 mg capsule,delayed 30 mg PO DAILY 05/25/19 release folic acid 800 mcg tablet 1 mg PO DAILY 05/25/19 magnesium 250 mg tablet 400 mg PO DAILY 05/25/19 methotrexate sodium 2.5 mg tablet 20 mg PO QWEEK 05/25/19 pyridoxine (vitamin B6) 25 mg 25 mg PO DAILY 05/25/19 tablet zolpidem 10 mg tablet 10 mg PO QHS PRN PRN 05/25/19 Acetaminophen [Acetaminophen Extra 1,000 mg PO Q6H PRN PRN 01/08/20 Strength] Alendronate Sodium [Fosamax] 70 mg PO QWEEK 01/08/20 Benzocaine/Menthol [Cepacol Sore 1 ea MM Q2H PRN PRN 01/08/20 Throat Lozenge] Cholecalciferol (VIT D3) [Vitamin 2,000 unit PO DAILY 01/08/20 D] Clopidogrel Bisulfate [Clopidogrel] 75 mg PO DAILY 01/08/20 Cyanocobalamin (Vitamin B-12) 500 mcg PO DAILY 01/08/20 [Vitamin B-12] Furosemide [Lasix] 40 mg PO DAILY 01/08/20 Hydroxychloroquine [Plaquenil] 200 mg PO BIDCM 01/08/20 Lidocaine/Transparent Dressing 1 ea TP DAILY 01/08/20 [Lidocaine 4% Kit] Metoprolol Tartrate 50 mg PO BID 01/08/20 Multivitamin with Minerals 1 ea PO DAILY 01/08/20 [Multiple Vitamin] Polyethylene Glycol 3350 [Miralax] 17 gm PO DAILY PRN PRN 01/08/20 Potassium Chloride 40 meq PO BID 01/08/20 Sennosides/Docusate Sodium 1 ea PO BID 01/08/20 [Senna-Docusate Sodium Tablet] - Allergies Allergies/Adverse Reactions: Allergies sulfamethoxazole [From Bactrim] Allergy (Verified 02/25/20 14:23) Rash trimethoprim [From Bactrim] Allergy (Verified 02/25/20 14:23) Rash - Sleep Disorder Evaluation Hx of Sleep Apnea: Yes Do you snore loudly (louder than talking or can be heard through closed doors)?: Yes Do you often feel tired/ fatigued/ sleepy during daytime?: Yes Has anyone observed you stop breathing during sleep?: Yes - pt had a sleep study is going to get the machine. History of Hypertension (for STOP score): Yes STOP Results: Positive Advanced Directives - Advanced Directives Power of Farm Management Professor: No Living Will: No Advance Directives Information Provided: No Advance Directives on File: No DNR Order?:: No Past Medical History - Covid-19 Screening Fever: No Unexplained muscle aches: No Current respiratory symptoms: No Upper respiratory infections symptoms: No Gastro-intestinal symptoms: No Who-Jjyv-Xuscpm symptoms: No Has tested positive for COVID-19 in last 30 days: No Had contact w/person w/symptoms or Covid-19 (+) last 14 days: No Has High Risk Exposures ID'd by Health dept/Inf Control team: No 65 years or older:: Yes Lives in Assisted Living facility:: No Has a chronic lung disease or moderate to severe asthma:: No Has a serious heart condition:: Yes Immunocompromised:: No Severely obese (Body Mass Index of 40 or higher):: No Diabetic:: No Has chronic kidney disease undergoing dialysis:: No Has liver disease:: No - Past Medical Illness Medical History: Past Medical History (Last Reviewed 02/25/20 @ 14:36 by Viki Ugarte [employer]NAGER MARKET[employer], [employer]NAGER [employer]) Hyperlipidemia (Chronic) E78.5 GERD (gastroesophageal reflux disease) (Chronic) K21.9 Diverticulosis of colon without diverticulitis (Chronic) K57.30 History of depression (Chronic) Z86.59 Benign hypertension (Chronic) I10 Gastroenteritis (Acute) K52.9 Diarrhea R19.7 Difficulty balancing R29.818 Diverticulitis K57.92 Knee pain M25.569 Limb weakness R29.898 Osteoarthritis M19.90 Osteoporosis M81.0 Rheumatoid arthritis M06.9 Shoulder pain M25.519 Stomach ulcer K25.9 anterior neck fusion history of posterior neck fusion history of right knee tumor neck posterior and anterior repair neck/back pain Hypertension I10 - Past Surgical History Surgical History: Past Surgical History (Last Reviewed 02/25/20 @ 14:36 by Viki Ugarte MANAGER MARK[employer], MANAGER [employer]) History of tonsillectomy and adenoidectomy Z98.890 History of total knee replacement (TKR) Z96.659 Status post right rotator cuff repair Z98.890 Surgical History: coronary bypass surgery - Family History Summary Family History: Family History (Last Reviewed 02/25/20 @ 14:36 by Viki Ugarte MANAGER MARK[employer], MANAGER [employer]) Father Leukemia Brother Heart disease Mother CAD (coronary artery disease) Heart disease Sister Chronic glomerulonephritis Breast cancer Social History - Smoking History Smoking Status: Former smoker - stopped 30 years ago Years Smokin Hx Tobacco Use: No Hx Smoking Exposure: No - Alcohol Use Alcohol Usage: Yes - several times a year - Substance Abuse Hx Substance Use: No - Occupation Occupation (List type of work in comments):: Retired - Hobbies, Recreation, Social Activities Hobbies: None Social Environment - Status Marital Status: Single - Current Living Arrangements Living Environment:: Family - lives with son - Children How many children do you have?: 2 Do any of your children live nearby?: Yes - Safety Do you feel safe in your surroundings?: Yes - Assistance Do you need any assistance at home?: no Review of Systems - Review of Systems Hints: Right click = Denies ([place]ash). Left click = Reports ([place]) Review of Present Symptoms: Reports: Operative Discomfort - incisional pain, Angina - occasionally, Dizziness/Lightheadedness, Fatigue, Heart Arrhythmia/Irregularities, Appetite - Normal, Appetite - Special Diet, Sleep - Normal. Denies: Shortness of Breath at Rest, Shortness of Breath with Exertion, PVD, Wound Healing, Sexual Changes - Pain Is Patient Pain Free?: No Pain Location: chest Pain Level: 06/18 Risk Factor Assessment - Vital Signs Pulse Ox: 99 Blood Pressure: 130/70 - Pulse Pulse Rate: 64 Pulse Rhythm: Regular - Stress Stress: Home/Family - daughter lost her job, covid - Diabetes Nutrition Referral for Diabetes: No - Obesity Height: 5 ft 4 in Weight:: 80.739 kg Weight in Pounds: 178.0 lbs Body Mass Index (BMI): 30.5 Nutritional Referral for Obesity: No - Physical Inactivity Physical Inactivity: Reg Exercise 30 min/day, Recreational activity - Risk Stratification Risk Guidelines: Moderate Risk: Risk Factor for Smoking, Risk Factor for Dyslipidemia, Risk Factor for Diabetes, Risk Factor for Obesity, Risk Factor for Hypertension, Risk Factor for Sedentary Lifestyle, Risk Factor for Depression - For Smoking Smoking Risk Guidelines: Smoking Low Risk: None or quit greater than 6 months ago. Smoking Moderate Risk: Smoker or quit 6 months or less ago. Smoking High Risk: Smoker - For Dyslipidemia Dyslipidemia Risk Guidelines: Low Risk: Moderate Risk: High Risk: 15-25% fat 25.1-29% fat >/= 30% fat. <7% sat fat 7-9% sat fat >9% sat fat. <150 mg chol 150-299 mg chol >/= 300 mg chol. LDL <100 LDL 100-129 LDL >/= 130. Chol/HDL ratio <5.0 Chol/HDL ratio 5.0-6.0 Chol/HDL ratio >6.0. Triglycerides <100 Triglycerides 100-149 Triglycerides >/= 150 - For Diabetes Mellitus Diabetes Risk Guidelines: Diabetes Low Risk: HgA1c <6.5% and/or FBG <120. Diabetes Moderate Risk: HgA1c 6.6-7.9% and/or FBG 120-180. Diabetes High Risk: HgA1c >/= 8% and/or FBG >180 - For Obesity/Overweight Obesity/Overweight Risk Guidelines: Obesity Low Risk: BMI <25.0. Obesity Moderate Risk: BMI 25-29.9. Obesity High Risk: BMI >/= 30.0 - For Hypertension Hypertension Risk Guidelines: Hypertension Low Risk: Systolic <120 and Diastolic <80. Hypertension Moderate Risk: Systolic 120-139 and Diastolic 80-89. Hypertension High Risk: Systolic >/= 140 and Diastolic >/= 90 - For Sedentary Lifestyle Sedentary Lifestyle Risk Guidelines: Sedentary Lifestyle Low Risk: >/= 1,500 kcal/week. Sedentary Lifestyle Moderate Risk: 700-1,499 kcal/week. Sedentary Lifestyle High Risk: < 700 kcal/week - For Depression Depression Risk Guidelines: Depression Low Risk: Not clinically depressed. Depression Moderate Risk: Mildly depressed. Depression High Risk: Clinically depressed - Family History Family History: Family History (Last Reviewed 02/25/20 @ 14:36 by Viki Ugarte [employer]NAGER [employer], MANAGER [employer]) Father Leukemia Brother Heart disease Mother CAD (coronary artery disease) Heart disease Sister Chronic glomerulonephritis Breast cancer Motivation - Motivation to Participate On a scale of 1 to 10, how prepared are you to commit to attending program?: 10 What do you see as barriers to successfully being able to complete the program?: covid What do you see as the benefits of succesfully completing the program? In other words, what do you hope to get out of participating in the program?: improved health Are there issues you are dealing with that will interfere with completing the program?: covid Do you have a spouse or signficant other, family or friends who will help support you to complete the program?: family
--- NOTE | 2020-03-12 10:28 | PCM.CR.ITP ---
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 Maintain the individual as the primary focus of care. 2. To improve the patient's quality of life. 3. Identification of cardiac risk factors and provide cardiac risk factor management. 4. Enhance the psychosocial status of the patient. 5. Reconditioning enough to allow the patient to resume customary activities. 6. Control symptoms of cardiac disease Personal Goals: Initial Assessment: Improve management of stress and emotions, Improve energy level, Participate in home exercise program, Get back to work, or to resume activities faster, Improve knowledge of cardiac disease, Improve muscle strength and endurance, Improve diet and eating habits (eat healthier), Control risk factors (learn risk factor modification) Scale for measuring improvement of personal goals: Enter appropriate number in Comments. 2 = Unchanged. 3 = Slightly Better. 4 = Moderate Improvement. 5 = Met my Goal - Diagnosis & Disease Process Outcomes/Goals: Pt IDs own risk factors & lifestyle modifications by Session 10, Verbalizes symptoms of angina & response by session 3., Pt independently manages, Other Additional Outcomes/Goals: Plan/Interventions: Assist Pt to ID & engage in lifestyle modification to reduce CVD risk, Instruct on individual risk factors, Review symptoms of angina & emergency actions, Review secondary diagnosis & identify educational needs., Other see comment 30 day Reassessments:: Not Met 30 day Reassessments:: Not Met 30 day Reassessments:: Not Met 30 day Reassessments:: Not Met Final Reassessments:: Not Met - Safety Referral to Physical Therapy: No Referral to [facility] Case Management: No Fall Risk Assessed:: Yes Assistive Devices:: None Exercise - Initial Assessment - Visit Date of Eval: 03/12/20 - initial eval Mets: Pre-: >7 METS for 30 minutes by discharge - Physician Prescribed Exercise Modalities: Treadmill, Airdyne, NuStep, SciFit Frequency: 3x/week for 12 weeks [36 sessions] Intensity: 60-80% of age predicted maximum heart rate reserve Current METSs:: 3.5 Target Heart Rate:: 100-135 Resting Blood Pressure: 130/70 EKG Type: NSR - Outcomes & Goals Goals:: Verbalizes understanding of THR, RPE & goal METS by session 6, Documents in home exercise log/reports 30 min aerobic 5 day/wk by DC, Demonstrates accurate pulse taking by DC, Other additional outcome/goals: see below - Intervention & Plan Exercise Program Goals: Instruct on personal THR & RPE, Instruct on MET level & personal MET goal, Show patient to take own pulse /validate performance until accurate, Instruct on home exercise, Other additional plan/int - Physical Activity Home Exercise Physical Activity - Home Exercise: Safe Exercise, Warm-up, Self-monitoring, Cool-Down, Home Exercise > 30 min Daily, Sitting Time <3 hours/daily - Intervention & Plan Plan/Intervention: Instruct warm-up & cool-down if exercising at > 2 METs, Instruct on symptoms of exercise intolerance & actions to take, Instruct & monitor on saf, Assess intial functional capacity & safety risk, Other See below Nutrition - Initial Assessment - Program Goals Nutrition Program Goals: LDL <100 optimal. 100 - 129 Near optimal. 130 - 159 Borderline High. 160 - 189 High. Total Cholesterol <200 desirable. 200 - 239 Borderline High. >/= 240 High. HDL < 40 Low >/=60 High. Triglycerides <150 desirable. <199 optimal. VlDL 5 - 40. HgbA1C <7%. BMI <25 - Visit Date of Assessment:: 03/12/20 - initial eval - Cholesterol/Lipids Determine presence & major risk factors that modify LDL goal: Cigarette smoking, Hypertension or hypertensive medication, Low HDL cholesterol <40 mg/dL*, Family history of premature CHD in Male < 55 years: female <65 yearsFa, Age men > 45 years; women >/= 55 years Outcomes/Goals: Pt IDs own risk factors & lifestyle modifications by Session 10, Verbalizes symptoms of angina & response by session 3., Pt independently manages, Other Additional Outcomes/Goals: Intervention/Plan: Advocate for lipid panel cholesterol medication if applicable, Instruct on personal lipid levels & lipid goals/NCEP guidelines, Instruct on cholesterol, Other additional plan/int Referral to dietitian:: No - Diabetes (Other Core Measures) Insulin dependent injection/pump?: No Non-Insulin Dependent?: Yes Do you monitor your blood sugar at home?: No Referral to Diabetic Clinic:: No - Weight Mgt (Other Care) Height: 5 ft 4 in Weight:: 80.739 kg BMI: 30.5 Outcomes/Goals: Pt sets, maintains & shows weight loss goal & trend during rehab, Other additional outcomes/goals Intervention/Plan: Instruct on ideal BMI & set weight loss goal w/patient, Assist pt to ID & incorporate diet changes for weight loss by S9, Refer to Structured Weight Loss program as appropriate, Encourage goal of using 250-300dcal per session for weight loss, Other additional plan/interventions - Healthy Eating Habits Will attend diet classes:: Yes Outcomes/Goals:: Consume diet rich in vegs,fruits,whole grain/high fiber,fish,lean meat, Limit sat/trans fats,cholesterol & added salts & sugars, Other additional outcome/goals: Intervention/Plan:: Assess current eating habits, Other Additional plan/interventions Medical - Initial Assessment - Visit Date of Eval: 03/12/20 - initial eval - Medication Compliance Preventative Medication(s):: Aspirin, DARSHAN inhibitor, Statin/lipid, Beta chuy H/O mental health issues: depression, anxiety, or addiction?: Yes Doesn?t believe in the benefits of treatment?: No Believes medications are unnecessary or harmful?: No Has a concern about medication side effects?: No Expresses concern over the cost of medications?: No Outcomes/Goals: Verbalizes medications,desired effect & common side effects @ DC, Pt self-reports following medication regimen, Keeps card in wallet w/medications listed by DC, Other additional outcome/goals: Interventions/plans: Instruct on medication effects & side effects, Review medication list w/patient every two weeks, Instruct importance of taking meds as ordered & assist problem solving, Other additional - Tobacco Use Tobacco Use: Non-smoker How long ago did you quit using tobacco products?: Greater than or equal to 6 months ago - stopped over 30 years ago Years Smokin Do you use smokeless tobacco?: No - Hypertension Hypertension Diagnosis:: Hypertension ICD-10 I10 [employer] Hypertension Guidelines: [employer] Hypertension Guidelines. Normal BP Less than 120/80. Elevated BP 120/80. Hypertension Stage 1: BP 130-139/80-89. Hypertesnion Stage 2: BP 140 or higher/90 or higher. Hypertension Crisis: BP higher than 180/120 Outcomes/Goals: Able to verbalize/achieve optimal blood pressure <130/80, Incorporates diet changes & exercise for blood pressure control by DC, Other additional outcomes/goals Interventions/plan: Instruct on optimal blood pressure, hypertension & medications, Instruct on effects of sodium, alcohol, stress, exercise &hypertension, Other additional plan/interventions - Tobacco Cessation Referral Smoking Cessation Referral:: No Individual Education/Counseling:: No Education Schedule Given:: Yes Psychosocial - Initial Assess - VIsit Date of Eval: 03/12/20 - initial eval History of previous Mental disease:: Yes - anxiety History of Emotional Disorders: Anxious - Target Goals Target Goals: Assess presence or absence of depression. Using a valid screening tool, maximizes coping skills. Positive support system - Psychosocial Test phq-9 Severity: Severity. 1-4 Minimal Depression. 5-9 Mild Depression. 10-14 Moderate Depression. 15-19 Moderately Sever Depression. 20-27 Severe Depression. Rule: - Referral to Behavioral Health PS - Interventions: Yes Referral to Behavioral Health if PHQ-9 score >9:, Yes Attend Stress Management Classes, No Referral to [facility], No Referral to Physician if PHQ-9 if score is 5-9: - Outcomes/Goals: See list Psychosocial Outcomes/Goals:: ID's personal stressors & 2 strategies to manage stress by discharge, Other Additional outcome/goals: - Intervention/Plan: See List Interventions/Plan:: Assess stressors,coping strategies & signs of derpression on admission, Instruct/assist pt to develop coping & personal stress Mgt strategies, Refer to Behavioral Health if appropriate, Refer to Physician if appropriate, Instruct patient to recognize signs & symptoms of depression, Instruct patient to recog, Other additional plan/intervention Patient Health Questionnaire Initial Assessment 1. Little interest or pleasure in doing things: More than half the days 2. Feeling down, depressed, or hopeless: Several days 3. Trouble falling or staying asleep, or sleeping too much: Not at all 4. Feeling tired or having little energy: More than half the days 5. Poor appetite or overeating: Several days 6. Feeling bad about yourself -- or that you are a failure or have let yourself or your family down: More than half the days 7. Trouble concentrating on things, such as reading the newspaper or watching television: More than half the days 8. Moving or speaking so slowly that other people could have noticed. Or the opposite - being so fidgety or restless that you have been moving around a lot more than usual: Not at all 9. Thoughts that you would be better off , or of hurting yourself in some way: Not at all How difficult have these problems made it for you to do your work, take care of things at home, or get along with other people?: Somewhat difficult Total Score: 10 CLYDE-Q SV Test - Statements CAD is a disease of the arteries in the heart: False Examples of risk factors for heart disease: True Angina is chest pain or discomfort: True The benefits of resistance training include: True Eating more meat and dairy products: False Anti-platelet medications such as aspirin are important: True The only effective way to manage stress: False An exercise warm-up slowly increases heart rate: True Prepared, processed foods usually have high sodium: True Depression is common after a heart attack: True The statin medications lower cholesterol: True To control blood pressure, lower the amount of sodium: True If someone gets chest discomfort during walking: False Transfats are partially hydrogenated vegetable oils: True Sleep apnea that is not treated increases the risk: True To control cholesterol, one should become a vegetarian: False Someone knows if he/she is exercising at the right level: I Don't Know Diabetes cannot be prevented with exercise & health eating: False Stress is a large risk for heart attack: True A diet that can help lower blood pressure is rich in: True - Total Score Total Correct Responses: 18 Self-Efficacy Initial Assessment We would like to know how confident you are in doing certain activities. Please select your confidence level for:: Select your confidence level for the following using the scale 1-10 where 1 is not at all confident and 10 is totally confident. Your score is the average of all 6 responses. Fatigue: How confident are you that you can keep the fatigue caused by your disease from interfering with the things you want to do? Select Number: 1 - pt declined to do this form Physical Discomfort or Pain: How confident are you that you can keep the physical discomfort or pain of your disease from interfering with the things you want to do? Emotional Distress: How confident are you that you can keep the emotional distress caused by your disease from interfering with the things you want to do? Other Symptoms or Health Problems: How confident are you that you can keep other symptoms or health problems from interfering with the things you want to do? Different Tasks and Activities: How confident are you that you can do the different tasks and activities needed to manage your health condition so as to reduce your need to see a doctor? Medication: How confident are you that you can do things other than just taking medication to reduce how much your illness affects your everyday life? Nutrition Survey - Nutrition Survey Instructions Scoring Instructions: Scoring is as follows: Yes = 1 points. No = 0 point. Patient score that is >/=12 is considered to be at potential nutritional risk and could benefit from a referral to a registered dietitian. - Nutrition Survey Initial Have you lost >10 lbs over the past 2 months without trying?: No Are you following a special diet at home for diabetes, low fat, or low salt?: Yes Are you interested in meeting with a dietitian for help understanding your diet?: No Do you eat less than 3 meals a day?: No Do you eat fatty meats (choudhury, sausage, ribs, etc), fried foods, desserts, large amounts of salad dressings, margarine, butter, or cheese most days?: No Do you have food allergies? [Enter types in comment field]: No Do you eat in restaurants more than 3 times a week?: No Do you season food with salt, seasoning salt, or garlic salt?: No Do you used canned, boxed, frozen meals, or soups, seasoning packets?: No Total Score:: 1
[2020-03-12 11:35] VITALS: BP 130/70; BMI 30.5
[2020-03-12 11:37] VITALS: BP 130/70; PULSE 64; O2SAT 99; BMI 30.5
== END ==
PROVIDERS: PCP Preventive Medicine Occupational Medicine
DX: Z95.1 Presence of aortocoronary bypass graft (principal)

== ENCOUNTER → 2020-05-07 12:07 | Outpatient (CLI) | payer MEDICARE, SELFPAY ==
[2020-03-12 11:35] VITALS: BMI 30.5
[2020-03-12 11:37] VITALS: BMI 30.5
--- NOTE | 2020-05-07 12:09 | BI_ITS ---
MAMMOGRAPHY - BILATERAL SCREENING REASON FOR EXAM: Female, 65 years old. Routine annual screening examination. PERTINENT HISTORY: Sister with breast cancer. Aunt with breast cancer. TECHNIQUE: Digital bilateral breast mo (3D mammographic acquisition) in the CC and MLO projections. 2-D mediolateral oblique (MLO) and craniocaudad (CC) views of both breasts were obtained. CAD: Full Field Digital Mammography with Computer Added Detection was performed. COMPARISON: Comparison is made with prior examinations of 01/06/2018 and 07/31/2012. FINDINGS: Breast Composition: The breasts are extremely dense, which lowers the sensitivity of mammography. There are no dominant masses or suspicious calcifications. No other significant abnormalities are identified. There has been no significant change since the prior study. BI/SCRN MAMM (CAD)W/MO BILAT IMPRESSION: Stable bilateral screening mammogram. Yearly follow-up mammogram recommended. (A) ASSESSMENT CATEGORY: BIRADS Category 1: Negative. A letter regarding these results will be sent to the patient by the facility within 30 days. Approximately 10% of breast cancers are not detected by mammography. A normal mammogram should not delay biopsy of a clinically suspicious abnormality. [id number] Electronically Signed: Sb Lowry MD at 13:00 EST , Service support ,
== END ==
PROVIDERS: PCP Preventive Medicine Occupational Medicine; Referring Provider Preventive Medicine Occupational Medicine; Visit Provider Preventive Medicine Occupational Medicine
DX: Z12.31 Encounter for screening mammogram for malignant neoplasm of breast (principal)
CPT/HCPCS: 77063; 77067

== ENCOUNTER 2020-08-07 20:53 | Emergency (ER) | payer MEDICARE, SELFPAY ==
[2020-03-12 11:35] VITALS: BMI 30.5
[2020-03-12 11:37] VITALS: BMI 30.5
[2020-08-07 20:53] VITALS: BP 135/85; PULSE 67; RESP 18; TEMP 36.3; O2SAT 97; BMI 29.0
--- NOTE | 2020-08-07 21:01 | EKG12_ITS ---
Test Reason : FALL/CP Blood Pressure : / mmHG Vent. Rate : 054 BPM Atrial Rate : 054 BPM P-R Int : 168 ms QRS Dur : 082 ms QT Int : 412 ms P-R-T Axes : 054 024 078 degrees QTc Int : 390 ms Sinus bradycardia Nonspecific T wave abnormality Abnormal ECG Confirmed by HARJINDER ZULUAGA, JOSE ([id number]), editorial assistant DEVANG JANE ([id number]) on 08/11/2020 12:27:03 PM Referred By: PEARL Confirmed By:JOSE GRANDE MD
--- NOTE | 2020-08-07 21:10 | CT_ITS ---
HISTORY: trauma Technique:CT Head or Brain W/O Contrast Injection. Sagittal and coronal 2-D reformats Number of Images including paperwork:242 Comparison: July 23, 2011 Findings: Periventricular deep and subcortical white matter disease is present. Paranasal sinuses are clear. The brain is age-appropriate. Calcific ASCVD involves intracranial arteries. No acute intracranial edema or hemorrhage. No acute abnormality of orbits. Middle ear cavities and mastoid air cells are well aerated. Skull is normal. CT/Brain/Head without Contrast IMPRESSION: No acute intracranial abnormality. Chronic changes as above. ASPECT 10. Individualized dose optimization techniques were used for this CT. at 2208 Reported and signed by: Jeovanny Martin MD Electronically Signed: Jeovanny Martin MD at 22:07 EDT Tel , Service support ,
--- NOTE | 2020-08-07 21:10 | CT_ITS ---
HISTORY: trauma TECHNIQUE: Helically acquired images were obtained of the cervical spine without contrast. 2D reformatted images were reviewed. A radiation dose optimization technique was used for this scan. COMPARISON: Most recent comparison x-rays from January 06, 2018. Most recent CT scan is from August 05, 2014. FINDINGS: # of images incl. paperwork: 460 Vertebral body height is fairly well-preserved. The anterior cervical fixation at the C5-C6 level is now a solid perfused cervical fixation across the intervertebral disc space with a prosthetic disc spacer. Anterior subluxation of C4 on C5 is less severe than previously. Disc disease at C4-C5 has progressed. There is now loss of height with endplate sclerosis. The patient has also, new since August 05, 2014, but not new since January 06, 2018, laminectomies and posterior spinal fixation from C3, C4, C5, and C6. Facets are fused from C3-C6 level of the posterior fixation. Laminectomy defects. Lung apices are clear. The airway is patent. The thyroid gland is homogeneous. No fractures. CT/Spine Cervical without Contras IMPRESSION: Chronic anterior and posterior spinal fixation surgery without acute malalignment or acute fracture. Individualized dose optimization techniques were used for this CT. at 2220 Reported and signed by: Jeovanny Martin MD Electronically Signed: Jeovanny Martin MD at 22:18 EDT Tel , Service support ,
--- NOTE | 2020-08-07 21:10 | RAD_ITS ---
HISTORY: Trauma. Comparison study: February 06, 2020. Single view chest and 4 images of the left ribs. Findings: Sternal wires. Mediastinal clips. Heart is not enlarged. Lungs are clear and well expanded. No effusions. The pulmonary contusion. No pneumothorax. Arthritis is present at the left shoulder to a similar degree severity of the previous study. Anterior and posterior cervical fixation hardware remains in place. 2 corticated ossicles are present superimposed over the superior aspect of the glenoid, at the level of the base of the coracoid process, and likely represent intra-articular calcified loose bodies in the left glenohumeral joint. No rib fractures are perceived. RAD/Ribs Uni Min 3V w/PA Chest IMPRESSION: No rib fractures perceived. No pneumothorax identified. No pulmonary contusion identified. Left shoulder arthritis is similar in severity to previous study. On today's study, however, there are 2 corticated ossicle superimposed over the superior aspect of the glenoid, at the base of the coracoid process, and may represent intra-articular loose bodies such as synovial osteochondromatosis. at 2235 Reported and signed by: Jeovanny Martin MD Electronically Signed: Jeovanny Martin MD at 22:33 EDT Tel , Service support ,
[2020-08-07] MEDS: oxyCODONE 5 MG Tablet PO (21:24)
--- NOTE | 2020-08-07 22:00 | RAD_ITS ---
HISTORY: trauma Technique: 4 views of the right knee. Comparison: Previous imaging of the right knee is from August 12, 2018 Findings: An acute vertical fracture is present through the lateral aspect of the patella Soft tissue swelling over the patella and ventral to the knee is severe. Knee arthritis remains. Surgical clips medial to the knee joint are new. Osteophytes persists. Chondrocalcinosis persists. Heterogeneity of the soft tissues lateral to the knee and lateral to the distal femur may be indicative of a penetrating injury and gas. A large knee effusion is present. RAD/Knee 4 or More Views IMPRESSION: Patella fracture to the lateral third of the patella. Large knee effusion. Large soft tissue swelling about the knee. Tricompartment osteoarthritis. New surgical clips posterior and medial to the knee could be related to venous surgery. at 2237 Reported and signed by: Jeovanny Martin MD Electronically Signed: Jeovanny Martin MD at 22:36 EDT Tel , Service support ,
--- NOTE | 2020-08-07 22:48 | ED.VIS.FALL ---
HPI HPI - Fall History of Present Illness Chief Complaint: Fall Narrative Narrative: Patient presents with headache and right knee pain after mechanical fall. She was hit by her neighbors dog. She did not lose consciousness although she is on Plavix. She has no neck pain. She is complaining of left-sided chest pain and right knee pain. Social: Noncontributory Medications: Reviewed Past medical history: I reviewed at the bedside and in the chart Review of systems General: Head injury without any loss of consciousness HEENT: No facial injury Neck: No neck pain Cardiovascular: Patient denies any palpitations Chest wall: Chest wall pain on the left Respiratory: There is no shortness of breath GI: There is no nausea vomiting diarrhea or abdominal pain, no abdominal wall contusions Skin: Left knee abrasion Neurological: Patient has no memory loss, confusion, or any focal weakness Psychiatric: No recent behavioral changes Back: No back pain, no problems with ambulation Musculoskeletal: Left knee injury All other systems are reviewed and normal [facility] Medical History (Updated 08/07/20 @ 22:[address] Laureano Paul MD) anterior neck fusion Benign hypertension Diarrhea Difficulty balancing Diverticulitis Diverticulosis of colon without diverticulitis Gastroenteritis GERD (gastroesophageal reflux disease) History of depression history of posterior neck fusion history of right knee tumor Hyperlipidemia Hypertension Knee pain Limb weakness neck posterior and anterior repair neck/back pain Osteoarthritis Osteoporosis Rheumatoid arthritis Shoulder pain Stomach ulcer Home Medications pantoprazole 40 mg PO DAILY 02/24/13 [History Last Taken 08/27/14 06:00] atorvastatin 20 mg tablet 80 mg PO DAILY 07/06/18 [History Last Taken Unknown] gabapentin 100 mg capsule 1,200 mg PO TID 07/06/18 [History Last Taken Unknown] alprazolam 0.5 mg tablet 0.5 mg PO TID PRN PRN 05/25/19 [History Last Taken Unknown] aspirin 81 mg tablet,delayed release 81 mg PO DAILY 05/25/19 [History Last Taken Unknown] calcium carbonate 500 mg calcium (1,250 mg) tablet 500 mg PO BID 05/25/19 [History Last Taken Unknown] duloxetine 60 mg capsule,delayed release 90 mg PO DAILY 05/25/19 [History Last Taken Unknown] folic acid 800 mcg tablet 1 mg PO DAILY 05/25/19 [History Last Taken Unknown] magnesium 250 mg tablet 400 mg PO DAILY 05/25/19 [History Last Taken Unknown] methotrexate sodium 2.5 mg tablet 25 mg PO QWEEK 05/25/19 [History Last Taken Unknown] pyridoxine (vitamin B6) 25 mg tablet 25 mg PO DAILY 05/25/19 [History Last Taken Unknown] zolpidem 10 mg tablet 10 mg PO QHS PRN PRN 05/25/19 [History Last Taken Unknown] acetaminophen 1,000 mg PO Q6H PRN PRN 01/08/20 [History Last Taken Unknown] cholecalciferol (vitamin D3) 2,000 unit PO DAILY 01/08/20 [History Last Taken Unknown] clopidogrel 75 mg PO DAILY 01/08/20 [History Last Taken Unknown] cyanocobalamin (vitamin B-12) 500 mcg PO DAILY 01/08/20 [History Last Taken Unknown] hydroxychloroquine 200 mg PO BIDCM 01/08/20 [History Last Taken Unknown] metoprolol tartrate 50 mg PO TID 01/08/20 [History Last Taken Unknown] multivitamin with minerals 1 ea PO DAILY 01/08/20 [History Last Taken Unknown] polyethylene glycol 3350 17 gm PO DAILY PRN PRN 01/08/20 [History Last Taken Unknown] hydrocodone-acetaminophen 1 tab PO QHS PRN 3 Days #10 tab 08/07/20 [Rx Last Taken Unknown] Allergy/AdvReac Type Severity Reaction Status Date / Time sulfamethoxazole Allergy Rash Verified 08/07/20 20:55 [From Bactrim] trimethoprim [From Bactrim] Allergy Rash Verified 08/07/20 20:55 Family History Father Leukemia Brother Heart disease Mother CAD (coronary artery disease) Heart disease Sister Chronic glomerulonephritis Breast cancer Surgical History History of tonsillectomy and adenoidectomy History of total knee replacement (TKR) Hx of CABG Status post right rotator cuff repair Social History (Updated 02/25/20 @ 15:21 by Viki Ugarte 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, 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) Smoking Status: Never smoker alcohol intake: never EXAM Physical Exam Narrative Exam Narrative: Physical exam Vitals reviewed General: Patient appears in some distress HEENT: There is a slight supraorbital contusion Head: No head injury Eyes: Extraocular movements intact without any pain Neck: No C-spine tenderness with full range of motion Heart: Regular rate normal pulses Chest wall: Left-sided chest wall pain underneath her breast in the rib region no obvious contusion seen Lungs clear lungs bilaterally with normal inspiration and expiration without tachypnea GI: Abdomen is soft and nontender there is no mass no guarding no abdominal wall contusion : Stable pelvis Musculoskeletal: There is a small abrasion over the left knee there is quite a bit of tenderness over the patella. The extensor mechanism is intact. There is no laxity on anterior posterior medial or lateral stressors. Skin: Abrasion as above Neurological: Patient is alert and oriented with no focal deficits Const Vital Signs: 08/07/20 20:53 08/07/20 21:25 Temperature 97.4 F L Temperature Source Temporal Pulse Rate 67 Respiratory Rate 18 Respiratory Effort Normal Non-Labored Blood Pressure 135/85 H Blood Pressure Mean 101 Pulse Ox 97 Oxygen Delivery Method Room Air MDM MDM MDM Narrative Medical decision making narrative: Patient has a patellar fracture. We will place her in an John wrap. She will be discharged with orthopedic follow-up. Otherwise her work-up is negative I will discharge her home with analgesia. Radiography Diagnostic Testing: Radiology Impression Brain CT 08/07/20 21:10 IMPRESSION: No acute intracranial abnormality. Chronic changes as above. ASPECT 10. Individualized dose optimization techniques were used for this CT. at 2208 Reported and signed by: Jeovanny Martin MD Electronically Signed: Jeovanny Martin MD at 22:07 EDT Tel , Service support , Cervical Spine CT 08/07/20 21:10 IMPRESSION: Chronic anterior and posterior spinal fixation surgery without acute malalignment or acute fracture. Individualized dose optimization techniques were used for this CT. at 2220 Reported and signed by: Jeovanny Martin MD Electronically Signed: Jeovanny Martni MD at 22:18 EDT Tel , Service support , Ribs w/Chest X-Ray 08/07/20 21:10 IMPRESSION: No rib fractures perceived. No pneumothorax identified. No pulmonary contusion identified. Left shoulder arthritis is similar in severity to previous study. On today's study, however, there are 2 corticated ossicle superimposed over the superior aspect of the glenoid, at the base of the coracoid process, and may represent intra-articular loose bodies such as synovial osteochondromatosis. at 2239 Reported and signed by: Jeovanny Martin MD Electronically Signed: Jeovanny Martin MD at 22:33 EDT Tel , Service support , Knee X-Ray 08/07/20 22:00 IMPRESSION: Patella fracture to the lateral third of the patella. Large knee effusion. Large soft tissue swelling about the knee. Tricompartment osteoarthritis. New surgical clips posterior and medial to the knee could be related to venous surgery. at 223 Reported and signed by: Jeovanny Martin MD Electronically Signed: Jeovanny Martin MD at 22:36 EDT Tel , Service support , Knee x-ray interpreted by emergency doctor and radiologist shows a patellar fracture otherwise normal exam Rib x-ray interpreted by emergency doctor and radiologist shows no fracture normal lung markings normal cardiac silhouette Discharge Plan Triage Chief Complaint: Fall ED Provider: Laureano Paul Dx/Rx/DC Orders Clinical Impression: Concussion without loss of consciousness, Patellar fracture Instructions: ED Head Injury (Adult), ED Patella Fracture Prescriptions: New hydrocodone-acetaminophen 5-325 mg tablet 1 tab PO QHS PRN (Reason: pain) 3 Days Qty: 10 RF: 0 No Action gabapentin 100 mg capsule 1,200 mg PO TID RF: 0 atorvastatin 20 mg tablet 80 mg PO DAILY RF: 0 methotrexate sodium 2.5 mg tablet 25 mg PO QWEEK RF: 0 duloxetine 60 mg capsule,delayed release(DR/EC) 90 mg PO DAILY RF: 0 aspirin [Adult Aspirin Regimen] 81 mg tablet,delayed release (DR/EC) 81 mg PO DAILY RF: 0 zolpidem [Ambien] 10 mg tablet 10 mg PO QHS PRN PRN (Reason: Insomnia) RF: 0 alprazolam 0.5 mg tablet 0.5 mg PO TID PRN PRN (Reason: Anxiety) RF: 0 calcium carbonate [Calcium 500] 500 mg calcium (1,250 mg) tablet 500 mg PO BID RF: 0 magnesium 250 mg tablet 400 mg PO DAILY RF: 0 folic acid 800 mcg tablet 1 mg PO DAILY RF: 0 pyridoxine (vitamin B6) 25 mg tablet 25 mg PO DAILY RF: 0 pantoprazole 40 MG tablet 40 mg PO DAILY RF: 0 clopidogrel 75 MG tablet 75 mg PO DAILY RF: 0 acetaminophen 500 MG tablet 1,000 mg PO Q6H PRN PRN (Reason: pain/fever) RF: 0 metoprolol tartrate 50 MG tablet 50 mg PO TID RF: 0 polyethylene glycol 3350 17 GM powder in packet 17 gm PO DAILY PRN PRN (Reason: Constipation) RF: 0 multivitamin with minerals 1 EACH tablet 1 ea PO DAILY RF: 0 cyanocobalamin (vitamin B-12) 500 MCG lozenge 500 mcg PO DAILY RF: 0 hydroxychloroquine 200 MG tablet 200 mg PO BIDCM RF: 0 cholecalciferol (vitamin D3) 1,000 UNIT tablet 2,000 unit PO DAILY RF: 0 Primary Care Provider: John Centeno Referrals: Jd Coronado DO [STAFF PHYSICIAN] - 3-5 Days John Centeno DO [Primary Care Provider] - Disposition Disposition: Home, self care
[2020-08-07 23:23] VITALS: BP 128/80; PULSE 66; RESP 12; O2SAT 98
== END 2020-08-07 23:23 | disposition home or self-care (01) ==
PROVIDERS: Emergency Provider Emergency Medicine; PCP Preventive Medicine Occupational Medicine
DX: S06.0X0A Concussion without loss of consciousness, initial encounter (principal); S82.001A Unspecified fracture of right patella, initial encounter for closed fracture; I10 Essential (primary) hypertension; K21.9 Gastro-esophageal reflux disease without esophagitis; E78.5 Hyperlipidemia, unspecified; M19.90 Unspecified osteoarthritis, unspecified site; M06.9 Rheumatoid arthritis, unspecified; Z79.899 Other long term (current) drug therapy; W54.1XXA Struck by dog, initial encounter; Y93.89 Activity, other specified; Y92.89 Other specified places as the place of occurrence of the external cause; Y99.8 Other external cause status
CPT/HCPCS: 70450; 71101; 72125; 73564; 93005; 99283

== ENCOUNTER 2020-09-18 15:10 | Outpatient (RCR) | payer MEDICARE, SELFPAY ==
[2020-03-12 11:35] VITALS: BMI 30.5
--- NOTE | 2020-09-18 16:06 | HP.PTEVAL_ITS ---
Patient's Visit Information XI PANCHAL is a 65 year old F referred to Physical Therapy by Dr. Kanu Braxton DO with a diagnosis of R patellar fracture. Date of Evaluation: 09/18/20 Physical Therapist: CECILLE CoreasT, OCS, CSCS - Visit Plan Frequency: 2-3x /Week Duration: 4-6 Weeks Plan: 2-3x/week for 4-6 weeks for... 1. ROM to R knee. 2. NWB strength to R knee. 3. strength and proprio to R hip and ankle. PT is WBAT with barce locked but may be off painfree in therapy. ice as needed. - Subjective Neighbors dogs knocked her over onto knees 5 weeks ago and broke R knee cap. H/o L knee replacement 7 yrs ago. No other injuries. Went to ER that night and x ray due to swelling and pain. Sent to ortho Dr. Seth and gave her jaida wrap at ER scott [facility] got her a brace. Locked in extension. Pain is to 3/10 with ambulation, huts at rest at end of day. Exhausted at end of day. Gets up to 6/10 anteriorly and inside. Sleep is OK. Has RA and OA so soemtimes does not sleep well. 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 disc screwed up in neck. H/o surgery fusion in neck. Heart surgery last year. Hobbies wehn healthy include yard work, housework,. no Hobbies except reading. Prior to this accident she was walking 2 miles per day with dog. Basic ADLs agetting done at home. No AD needed. Used walker the first week. - Pain R knee Pain Intensity (Out of 10): 1 Pain Intensity Range: 1, 6 - Objective Walks with brace hanging around lower leg and locked FWB. Brace when unlocked is 0-90. Walks I. Trasnfers I with UE. No steps with R today. 0-90 R knee AROM and to 105 after heel slides. 5 ext lag with SLR. R. L knee 0-136. Strength R knee not tested, L knee 4/5. hip strength R abd/ext 3+ adn L 4-, flexion R 4- and L 4. ankle tests 4/5 with AROM WFL. Some tightness posteriorly in HS and gastroc, unable to test quad due to ROM limitations. Walks today without brace without incraasedd pain short distances but avoids bending R knee. - Goals Goal 1:: Put on shoes without difficulty and socks Goal Time Frame: 4-6 Weeks Goal 2:: AROM 0-130 without pain R knee Goal Time Frame: 4-6 Weeks Goal 3:: Walk without brace or deficits wehn allowed by doctor Goal Time Frame: 4-6 Weeks Goal 4:: steps reciprocally with one rail Goal Time Frame: 4-6 Weeks Goal 5:: walk dogs wo times per day without pain Goal Time Frame: 4-6 Weeks - Rehabilitation Potential Physical Therapy Diagnosis: R patellar fracture with weakness and ROM deficits. Rehabilitation Potential: Good - Anticipated Interventions Patient/Client Instruction: Educate patient on: Condition For the Purpose of:: To decrease pain, To increase ROM, To improve muscle performance and motor function Therapeutic Exercise to Include: Strength training, Balance training, Flexibilty training, Gait and locomotor training, Neuromotor development, Passive ROM, Active ROM For the Purpose of:: To decrease pain, To increase ROM, To improve muscle performance and motor function, To increase tolerance to activity/condition/position, To improve ability of physical actions for home/community/work/leisure, To improve gait and locomotor functions Manual Therapy Techniques to Include: Passive ROM, Soft tissue mobilization For the Purpose of:: To increase ROM Cryotherapy (ice pack, ice massage): Yes For the Purpose of:: To decrease swelling/inflammation Thank you for the opportunity to evaluate your patient. For Medicare and Medicare HMO plans, please review the plan of care and approve it. It will need to be FAXED BACK to us at [phone] for Medicare purposes. For Medicare only, by signing this I certify the plan of care. Please let me know if there are questions or concerns regarding this plan of care. Physician Signature: ___Date:
--- NOTE | 2020-11-20 12:05 | HP.PT.NRP ---
XI PANCHAL was seen in my office for initial evaluation on 09/18/20. The following Plan of Care was established for this patient: Initial Frequency: 2-3x /Week Initial Duration: 4-6 Weeks Patient/Client Instruction: Educate patient on: Condition For the Purpose of:: To decrease pain, To increase ROM, To improve muscle performance and motor function Therapeutic Exercise to Include: Strength training, Balance training, Flexibilty training, Gait and locomotor training, Neuromotor development, Passive ROM, Active ROM For the Purpose of:: To decrease pain, To increase ROM, To improve muscle performance and motor function, To increase tolerance to activity/condition/position, To improve ability of physical actions for home/community/work/leisure, To improve gait and locomotor functions Manual Therapy Techniques to Include: Passive ROM, Soft tissue mobilization For the Purpose of:: To increase ROM Cryotherapy (ice pack, ice massage): Yes For the Purpose of:: To decrease swelling/inflammation This patient was last seen in our office 09/18/20. Pertinent comments regarding their Physical therapy will appear below: Pt seen for initial evaluation and plan of care established. Pt did not schedule or attend any visits. at this point, it has been over 2 months and I will disocntinue due to nonattendance. At this point I will be discontinuing this patient from physical therapy. I would be happy to see this patient again in the future if found appropriate by the physician. Thank you! Blu Morales, DPT, OCS, CSCS Balance/Gait/Functional tests - Balance/Special Test Scores Lower Extremity Functional Score: 23
== END 2020-09-18 19:00 | disposition home or self-care (01) ==
LOC: PT 15:10
PROVIDERS: PCP Preventive Medicine Occupational Medicine; Referring Provider Orthopaedic Surgery; Visit Provider Orthopaedic Surgery
DX: S82.001D Unspecified fracture of right patella, subsequent encounter for closed fracture with routine healing (principal); X58.XXXD Exposure to other specified factors, subsequent encounter
CPT/HCPCS: 97110; 97161

== ENCOUNTER 2021-05-26 09:46 | Outpatient (CLI) | payer MEDICARE, SELFPAY ==
[2020-03-12 11:35] VITALS: BMI 30.5
--- NOTE | 2021-05-26 09:55 | BI_ITS ---
MAMMOGRAPHY - BILATERAL SCREENING REASON FOR EXAM: Female, 66 years old. Routine annual screening examination. PERTINENT HISTORY: Sister with breast cancer. Aunt with breast cancer. TECHNIQUE: Digital bilateral breast mo (3D mammographic acquisition) in the CC and MLO projections. 2-D mediolateral oblique (MLO) and craniocaudad (CC) views of both breasts were obtained. CAD: Full Field Digital Mammography with Computer Added Detection was performed. COMPARISON: Comparison is made with prior study dated 05/07/2020 and 01/06/2018. FINDINGS: Breast Composition: The breasts are extremely dense, which lowers the sensitivity of mammography. There are no dominant masses or suspicious calcifications. Stable small benign-appearing bilateral axillary lymph nodes. No other significant abnormalities are identified. There has been no significant change since the prior study. BI/SCRN MAMM (CAD)W/MO BILAT IMPRESSION: Stable bilateral screening mammogram. Yearly follow-up mammogram recommended. (A) ASSESSMENT CATEGORY: BIRADS Category 2: Benign. A letter regarding these results will be sent to the patient by the facility within 30 days. Approximately 10% of breast cancers are not detected by mammography. A normal mammogram should not delay biopsy of a clinically suspicious abnormality. [id number] Electronically Signed: Sb Lowry MD at 10:56 EST ,
== END 2021-05-26 23:59 | disposition home or self-care (01) ==
LOC: OPBI 09:46
PROVIDERS: PCP Preventive Medicine Occupational Medicine; Referring Provider Preventive Medicine Occupational Medicine; Visit Provider Preventive Medicine Occupational Medicine
DX: Z12.31 Encounter for screening mammogram for malignant neoplasm of breast (principal)
CPT/HCPCS: 77063; 77067

== ENCOUNTER → 2021-12-23 | Outpatient (CLI) | payer MEDICARE, SELFPAY ==
[2020-03-12 11:35] VITALS: BMI 30.5
--- NOTE | 2021-12-23 08:06 | CDU_ITS ---
Reason For Study: CAROTID STENOSIS Rt. Velocities/BP Lt. Velocities/BP Prox CCA 78.7/10.6 cm/sec. Prox CCA 85.5/15.5 cm/sec. Mid CCA 83.1/19.3 cm/sec. Mid CCA 99.0/21.6 cm/sec. Dist CCA 61.4/14.2 cm/sec. Dist CCA 58.8/10.9 cm/sec. Prox ICA 60.3/16.4 cm/sec. Prox ICA 57.6/12.2 cm/sec. Mid ICA 112.5/26.5 cm/sec. Mid ICA 93.2/29.3 cm/sec. Dist ICA 99.0/37.6 cm/sec. Dist ICA 92.8/31.4 cm/sec. Rt. ICA/CCA = 112.5/83.1=1.36. Lt. ICA/CCA = 93.2/99.0=0.94. Prox ECA 88.9/17.5 cm/sec. Prox ECA 80.9/14.6 cm/sec. Rt. Vert. 39.3/11.0 cm/sec. Lt. Vert. 40.2/9.1 cm/sec. Right Extracranial There is homogeneous, smooth atherosclerotic plaque noted in the right common carotid artery. There is intimal thickening but no significant atherosclerotic plaque noted in the right internal carotid artery. The distal right internal carotid artery is not well visualized. The tortuous nature of the right internal carotid artery may result in flow velocities overestimating the degree of stenosis. There is intimal thickening but no significant atherosclerotic plaque noted in the right external carotid artery. Antegrade flow is noted in the right vertebral artery. Left Extracranial There is homogeneous, smooth atherosclerotic plaque noted in the left common carotid artery. There is heterogeneous, irregular atherosclerotic plaque noted in the left internal carotid artery. There is homogeneous, smooth atherosclerotic plaque noted in the left external carotid artery. Antegrade flow is noted in the left vertebral artery. Procedure Carotid Duplex 19973. RT Vertebral is the last image of exam due to technically difficult imaging due to hardware in neck from previous surgeries. Exam performed in department. VL/Carotid Duplex Ultrasound Interpretation Summary Normal right extracranial internal carotid. Mild (<50%) stenosis left extracranial internal carotid. Patent and antegrade vertebrals bilaterally. Ordering Physician: Laureano Taylor Referring Physician: John Centeno Performed By: Yadira Maurer, KARI, RVT
== END | disposition home or self-care (01) ==
LOC: CVS 08:03
PROVIDERS: PCP Preventive Medicine Occupational Medicine; Referring Provider Internal Medicine Cardiovascular Disease; Visit Provider Internal Medicine Cardiovascular Disease
DX: I65.23 Occlusion and stenosis of bilateral carotid arteries (principal); I49.3 Ventricular premature depolarization; I49.1 Atrial premature depolarization; I25.10 Atherosclerotic heart disease of native coronary artery without angina pectoris; I10 Essential (primary) hypertension; E78.5 Hyperlipidemia, unspecified; Z95.1 Presence of aortocoronary bypass graft
CPT/HCPCS: 93880

== ENCOUNTER 2022-11-07 11:59 | Emergency (ER) | payer MEDICARE, SELFPAY ==
[2020-03-12 11:35] VITALS: BMI 30.5
[2022-11-07 12:01] VITALS: BP 186/98; PULSE 54; RESP 16; TEMP 36.4; O2SAT 99; BMI 32.5
--- NOTE | 2022-11-07 12:07 | EDS_ITS ---
HPI History of Present Illness Chief Complaint: Upper Extremity Injury [facility] Medical History anterior neck fusion Anxiety Atherosclerotic heart disease of [place] coronary artery without angina pectoris Benign hypertension Coronary artery disease Diarrhea Difficulty balancing Diverticulitis Diverticulosis of colon without diverticulitis Gastroenteritis GERD (gastroesophageal reflux disease) History of depression history of posterior neck fusion history of right knee tumor Hyperlipidemia Hypertension Iron deficiency anemia Knee pain Limb weakness neck posterior and anterior repair neck/back pain Osteoarthritis Osteoporosis Persistent insomnia Premature atrial contraction Premature ventricular contraction Rheumatoid arthritis Shoulder pain Stomach ulcer Vitamin B12 deficiency Vitamin D deficiency Home Medications pantoprazole 40 mg tablet,delayed release 40 mg PO DAILY 02/24/13 [History Last Taken 08/27/14 06:00] alprazolam 0.5 mg tablet 0.5 mg PO TID PRN PRN Anxiety 05/25/19 [History Last Taken Unknown] aspirin 81 mg tablet,delayed release (Adult Aspirin Regimen) 81 mg PO DAILY 05/25/19 [History Last Taken Unknown] methotrexate sodium 2.5 mg tablet 25 mg PO QWEEK 05/25/19 [History Last Taken Unknown] pyridoxine (vitamin B6) 25 mg tablet 25 mg PO DAILY 05/25/19 [History Last Taken Unknown] metoprolol tartrate 50 mg tablet 50 mg PO TID 01/08/20 [History Last Taken Unknown] calcium citrate 500 mg PO DAILY 11/12/21 [History Last Taken Unknown] cholecalciferol (vitamin D3) 25 mcg (1,000 unit) tablet 3,000 unit PO DAILY 11/12/21 [History Last Taken Unknown] cyanocobalamin (vitamin B-12) 500 mcg lozenges 1,000 mcg PO DAILY 11/12/21 [History Last Taken Unknown] folic acid 800 mcg tablet 2.4 mg PO DAILY 11/12/21 [History Last Taken Unknown] gabapentin 600 mg tablet 1,200 mg PO TID 11/12/21 [History Last Taken Unknown] hydroxychloroquine 200 mg tablet 400 mg PO DAILY 11/12/21 [History Last Taken Unknown] magnesium oxide 400 mg PO DAILY 11/12/21 [History Last Taken Unknown] multivitamin 1 tab PO DAILY 11/12/21 [History Last Taken Unknown] zolpidem 10 mg tablet (Ambien) 10 mg PO QHS 11/12/21 [History Last Taken Unknown] atorvastatin 80 mg tablet 80 mg PO QHS 05/24/22 [History Last Taken Unknown] duloxetine 30 mg capsule,delayed release 90 mg PO DAILY 05/24/22 [History Last Taken Unknown] oxycodone-acetaminophen 5 mg-325 mg tablet (Percocet) 1 tab PO Q6H PRN pain 5 days #20 tabs 11/07/22 [Rx Last Taken Unknown] Allergy/AdvReac Type Severity Reaction Status Date / Time sulfamethoxazole Allergy Rash Verified 09/15/22 12:32 [From Bactrim] trimethoprim [From Bactrim] Allergy Rash Verified 09/15/22 12:32 Family History Father Leukemia Brother Heart disease Mother CAD (coronary artery disease) Heart disease Sister Chronic glomerulonephritis Breast cancer Sister Heart disease Kidney disease Surgical History History of bilateral oophorectomies History of bowel resection History of coronary artery bypass surgery (~12/27/19) History of tonsillectomy and adenoidectomy History of total knee replacement (TKR) Status post right rotator cuff repair Social History Smoking Status: Former smoker alcohol intake: never substance use type: does not use caffeine: Yes Type: coffee Number of servings: 2 EXAM Physical Exam Const Vital Signs: 11/07/22 12:01 Temperature 97.5 F L Temperature Source Temporal Pulse Rate 54 L Respiratory Rate 16 Blood Pressure 186/98 H Blood Pressure Mean 127 Pulse Ox 99 Oxygen Delivery Method Room Air [facility] MDM Narrative Medical decision making narrative: HISTORY OF PRESENT ILLNESS: 67-year-old female here with left wrist pain. The patient states she had mechanical fall today in the garage. She states she injured her left wrist and left knee. She also notes elbow pain. Denies any head trauma loss of consciousness. Right to the right hand. Denies any focal numbness weakness or loss sensation REVIEW OF SYSTEMS: Pertinent positives: Wrist pain, elbow pain, knee pain Pertinent negatives: Head trauma, LOC PHYSICAL EXAM: Nursing triage notes reviewed, Vital signs reviewed Nursing triage notes reviewed, Vital signs reviewed Constitutional: please see mdm HENT: MMM Eyes: Pupils equal round and reactive to light, Extraocular muscles intact Neck: No stridor, no JVD, full neck ROM Lungs: Clear to auscultation, No wheezing or rales. No increased work of breathing, no conversational dyspnea, no accessory muscle use, no nasal flaring. No respiratory distress noted Heart: Regular rate and rhythm, No murmurs, No rubs and No gallops, 2+ distal pulses (radial, femoral, posterior tibial) in all extremities Abdomen: Soft, there is no tenderness, rigidity, rebound or guarding, no obvious peritoneal signs, no palpable pulsatile abdominal masses, no auscultated abdominal bruit : No CVAT Extremities: No edema, TTP over left elbow, obvious left wrist deformity, TTP over left wrist, compartments are soft, extremities are warm well perfused, there is also TTP over left knee with ecchymosis and bruising. Intact flexion extension left knee. Intact ligamentous structures with anterior drawer, posterior drawer valgus and varus stress testing. Neuro: N intact 5/5 strength with ok sign (median), intact finger abduction (ulnar) intact wrist extension (radial n). Intact sensation in the radial, ulnar, and median nerve distributions. Intact sensation L1-S1 dermatomal distributions. Intact 5/5 strength in hip flexion (T12-L3). Knee extension (L2-L4). Ankle dorsiflexion (L4-L5). Ankle plantar flexion (S1). Great toe extension (L5). 2+ patellar and Achilles DTRs. Skin: No rash or lesions noted MEDICAL DECISION MAKING: Chief Complaint: Wrist pain External records reviewed: No recent advanced imaging of the involved extremity Factors affecting care: CAD, hyperlipidemia, ETHAN ALL IMAGES (IF OBTAINED) HAVE BEEN PERSONALLY REVIEWED AND INTERPRETED BY MYSELF. MDM Narrative: Patient was initially hypertensive otherwise hemodynamically stable. Wrist exam remarkable for I considered the following differential diagnosis: Wrist fracture, dislocation, contusion, elbow fracture dislocation, knee fracture dislocation I obtained an x-ray to further elucidate the etiology of the patient complaints. X-rays of the patient's left wrist, forearm, elbow and left knee were read interpreted by myself. X-rays were remarkable for obvious left wrist fracture fracture was comminuted and had a component of palmar displacement. Patient was placed in a l sugar-tong splint. She is neurovascular intact before and after s plinting. Patient is given orthopedic follow-up. She is given strict return precautions. The patient and/or family, caregivers express understanding. The patient and/or family, caregivers agrees with the plan. Shared decision making: I will have a discussion with the patient and or visitors regarding risk/benefits of further testing or admission. They will be made aware of of the risk/benefits inherent in this decision they will be given the opportunity to voice understanding. Total critical care time today provided was at least 0 minutes. This excludes separately billable procedures. Critical care time (if documented) is secondary to the patient having high probability of clinically significant/life threatening deterioration in the patient's condition which required my urgent i ntervention. Procedures Upper Extremity Splints Upper Extremity Splint: Orthoglass Splint Fabrication: Fabricated Location: Left Discharge Plan Triage Chief Complaint: Upper Extremity Injury ED Provider: Ravinder Hager Dx/Rx/DC Orders Clinical Impression: Fracture of wrist Instructions: Wrist Fracture Prescriptions: New oxycodone-acetaminophen [Percocet] 5-325 mg tablet 1 tab PO Q6H PRN (Reason: pain) 5 Days Qty: 20 0RF No Action methotrexate sodium 2.5 mg tablet 25 mg PO QWEEK aspirin [Adult Aspirin Regimen] 81 mg tablet,delayed release (DR/EC) 81 mg PO DAILY alprazolam 0.5 mg tablet 0.5 mg PO TID PRN PRN (Reason: Anxiety) pyridoxine (vitamin B6) 25 mg tablet 25 mg PO DAILY folic acid 800 mcg tablet 2.4 mg PO DAILY gabapentin 600 mg tablet 1,200 mg PO TID zolpidem [Ambien] 10 mg tablet 10 mg PO QHS calcium citrate 250 mg calcium tablet 500 mg PO DAILY magnesium oxide 400 mg magnesium capsule 400 mg PO DAILY multivitamin Tablet 1 tab PO DAILY atorvastatin 80 mg tablet 80 mg PO QHS duloxetine 30 mg capsule,delayed release(DR/EC) 90 mg PO DAILY pantoprazole 40 MG tablet 40 mg PO DAILY metoprolol tartrate 50 MG tablet 50 mg PO TID hydroxychloroquine 200 mg tablet 400 mg PO DAILY cholecalciferol (vitamin D3) 25 mcg (1,000 unit) tablet 3,000 unit PO DAILY cyanocobalamin (vitamin B-12) 500 mcg lozenge 1,000 mcg PO DAILY Primary Care Provider: John Centeno Referrals: Jd Coronado DO [Med Staff - Active Staff] - Activity Restrictions/Additional Instructions: Thank you for trusting us with your care today! Please take Tylenol (2 pills, 650 mg), ibuprofen (2 pills, 400 mg) every 6 hours as needed for pain and fever control. If this does not control your pain please take Percocet. Please not take Tyle nol and Percocet together as Percocet contains Tylenol. You should try to remain nonweightbearing your left upper extremity secondary to wrist fracture. Please return to the emergency department if your symptoms change or worsen. Specifically develop worsening pain, discoloration, numbness, coolness to touch of the involved extremity. Please follow with your primary care physician for further outpatient evaluation and management. Disposition Disposition: Home, Self Care
--- NOTE | 2022-11-07 12:15 | RAD_ITS ---
INDICATION: Pain EXAMINATION/TECHNIQUE: X-RAY - LEFT XR Forearm 2 Views 2 VIEWS COMPARISON: No prior examinations are available for comparison. FINDINGS: SOFT TISSUES: Soft tissue swelling of the distal forearm and wrist. No radiopaque foreign body. BONES/JOINTS: Ununited intra-articular slightly displaced fracture of the distal radius.. No evidence of dislocation. Degenerative arthrosis of the carpometacarpal joint of the thumb. No sclerotic or destructive changes observed. RAD/Forearm 2 Views IMPRESSION: Comminuted intra-articular fracture of the distal radius. Electronically Signed: Michael Vanegas MD at 13:19 EDT ,
--- NOTE | 2022-11-07 12:15 | RAD_ITS ---
INDICATION: Pain EXAMINATION/TECHNIQUE: X-RAY - LEFT XR Wrist Min 3 Views 3 VIEWS COMPARISON: None. FINDINGS: SOFT TISSUES: Diffuse swelling of the wrist. No radiopaque foreign body. BONES/JOINTS: Comminuted intra-articular fracture of the distal radius.. No evidence of dislocation. Degenerative arthrosis of the carpometacarpal joint of the thumb.. No sclerotic or destructive changes observed. RAD/Wrist min 3 Views IMPRESSION: Fracture of the distal radius. Electronically Signed: Michael Vanegas MD at 13:21 EDT ,
--- NOTE | 2022-11-07 12:15 | RAD_ITS ---
INDICATION: Knee pain EXAMINATION/TECHNIQUE: X-RAY - LEFT XR Knee 1 or 2 Views 2 VIEWS COMPARISON: No prior examinations are available for comparison. FINDINGS: SOFT TISSUES: No soft tissue swelling or gas. No evidence of joint effusion. BONES/JOINTS: No acute fracture or subluxation.. Unremarkable alignment. Total left knee arthroplasty.. No sclerotic or destructive changes observed. RAD/Knee 1 or 2 Views IMPRESSION: Status post total knee arthroplasty. No demonstrated acute osseous changes. Electronically Signed: Michael Vanegas MD at 13:13 EDT ,
--- NOTE | 2022-11-07 12:15 | RAD_ITS ---
INDICATION: Elbow pain -- -- posterior elbow pain EXAMINATION/TECHNIQUE: X-RAY - LEFT XR Elbow Min 3 Views COMPARISON: None available. FINDINGS: SOFT TISSUES: No soft tissue swelling or gas. No definite joint effusion. BONES/JOINTS: There is no displacement of the anterior or posterior fat pads. No acute fracture or subluxation. Normal alignment. Preservation of the joint space. No sclerotic or destructive changes observed. RAD/Elbow min 3 Views IMPRESSION: No evidence of acute osseous injury. Electronically Signed: Michael Vanegas MD at 13:20 EDT ,
[2022-11-07] MEDS: Oxycodone/Apap 5/325 Tablet PO (12:24)
[2022-11-07] MEDS: Ibuprofen 200 MG Tablet 400 MG PO (12:24)
[2022-11-07] MEDS: Morphine 4 MG/ML Syringe IM (13:41)
== END 2022-11-07 14:50 | disposition home or self-care (01) ==
PROVIDERS: Emergency Provider Emergency Medicine; PCP Preventive Medicine Occupational Medicine; Visit Provider Emergency Medicine
DX: S62.92XA Unspecified fracture of left hand, initial encounter for closed fracture (principal); I25.10 Atherosclerotic heart disease of native coronary artery without angina pectoris; G47.33 Obstructive sleep apnea (adult) (pediatric); Z87.891 Personal history of nicotine dependence; Z95.1 Presence of aortocoronary bypass graft; W19.XXXA Unspecified fall, initial encounter
CPT/HCPCS: 73080; 73090; 73110; 73560; 96372; 99285

== ENCOUNTER → 2022-11-16 | Outpatient (CLI) | payer MEDICARE, MEDICAID, SELFPAY ==
[2020-03-12 11:35] VITALS: BMI 30.5
[2022-11-16 08:57] LABS: Hematocrit 36.3 % (37-47); Hemoglobin 12.7 g/dL (12.0-15.0); Mean Corpuscular Hgb 30.2 pg (27.0-32.0); Mean Corpuscular Volume 86.2 fL (81-99); Mean Platelet Vol. 8.8 fl (6.2-12.0); Platelet Count 213 K/mm3 (150-450); RBC Distribution Width CV 12.9 % (11.6-14.6); RBC Distribution Width SD 40.4 fl (35.1-43.9); Red Blood Count 4.21 M/mm3 (4.2-5.4); White Blood Count 8.2 K/mm3 (4.4-11.0)
[2022-11-16 09:20] LABS: Anion Gap 6 (5-15); BUN 10 mg/dL (7-18); BUN/Creat Ratio 15.1 RATIO (10-20); Calcium,Total 9.4 mg/dL (8.5-10.1); Chloride 109 mmol/L (98-107); Creatinine, Serum 0.66 mg/dL (0.55-1.02); EST Glomerular Filtration Rate 94 mL/min (>60); Est Glom Filt Rate - Afr Amer 114 mL/min (>60); Glucose 130 mg/dL (74-106); Potassium 3.5 mmol/L (3.5-5.1); Sodium Level 140 mmol/L (136-145); Troponin-I HS < 3 pg/mL (3.0-54.0)
== END | disposition home or self-care (01) ==
LOC: PAT 12-17 15:39
PROVIDERS: Anesthesiology; PCP Preventive Medicine Occupational Medicine; Referring Provider Orthopaedic Surgery; Visit Provider Orthopaedic Surgery
DX: Z01.818 Encounter for other preprocedural examination (principal); Z53.09 Procedure and treatment not carried out because of other contraindication; R94.31 Abnormal electrocardiogram [ECG] [EKG]
CPT/HCPCS: 80048; 84484; 85027; 93005; J7120

== ENCOUNTER → 2022-12-07 | Outpatient (CLI) | payer MEDICARE, MEDICAID, SELFPAY ==
[2020-03-12 11:35] VITALS: BMI 30.5
[2022-12-03 10:43] VITALS: BMI 30.5
--- NOTE | 2022-12-12 13:41 | STRESSREP_ITS ---
Stress Test Report Date: 12/07/2022 Procedure: Pharmacologic stress nuclear imaging study Indications: Chest pain Consent: Per the patient Procedure: The patient underwent pharmacologic (Regadenoson) evaluation with a peak heart rate of 78 beats per minute (50%predicted maximal heart rate) and a peak blood pressure of 162/90 mmHg. The baseline ECG demonstrated normal sinus rhythm, nonspecific ST-T changes. EKG during lexiscan infusion revealed no significant ischemic changes. EKG post infusion revealed no significant ischemic changes [There were no cardiac dysrhythmias pretest, during pharmacologic infusion, or recovery]. [There was no complaint of chest discomfort during pharmacologic infusion or recovery]. The examination was discontinued secondary to completion of protocol. Impression: 1. Lexiscan stress test test is negative for Lexiscan infusion induced EKG changes of ischemia. 2. Lexiscan stress test test is negative for Lexiscan infusion induced chest pain. 3. Results of the nuclear portion of the test is as below Myocardial perfusion imaging study: Technique: The patient was injected with 11.8 millicuries of technetium 99m Cardiolite and subsequently rest SPECT Cardiolite nuclear imaging was obtained in the horizontal long, vertical long, and short axis views. The patient underwent pharmacologic [Regadenoson 0.4mg] evaluation. Please see above for details. The patient was injected with 34.6 millicuries of technetium 99m Cardiolite and subsequently stress SPECT Cardiolite nuclear imaging was obtained in the horizontal long, vertical long, and short axis views. A gated Cardiolite study at peak stress was obtained. Interpretation: Rest and stress SPECT Cardiolite nuclear imaging status post realignment, normalization, and attenuation correction demonstrate overall normal myocardial radioisotope uptake. Gated images reveal no significant regional wall motion abnormalities. The reported LVEF is greater than 70%. Impression: 1. There is no evidence of significant ischemia or infarction. 2. Estimated ejection fraction is greater than 70%. This note was generated with [employer] software. It may contain incorrect words, spelling, and punctuation that were not noted in checking the note before signing.
== END | disposition home or self-care (01) ==
PROVIDERS: PCP Preventive Medicine Occupational Medicine; Referring Provider Physician Assistant Medical; Visit Provider Physician Assistant Medical
DX: R07.9 Chest pain, unspecified (principal)
CPT/HCPCS: 78452; 93017; A9500; A4216; J2785

== ENCOUNTER → 2023-01-21 | Outpatient (CLI) | payer MEDICARE, MEDICAID, SELFPAY ==
[2022-12-03 10:43] VITALS: BMI 30.5
[2023-01-21 12:31] LABS: Absolute Lymphocyte Count 3.14 X10^3/uL (0.83-4.51); Absolute Neutrophil Count 4.6 X10^3/uL (2.0-7.7); Basophil# 0.02 X10^3/uL; Basophil% 0.2 % (0-1); Eosinophil# 0.02 X10^3/uL; Eosinophils% 0.2 % (0-5); Hemoglobin 13.9 g/dL (12.0-15.0); Lymphocyte # 3.14 X10^3/ul (0.83-4.51); Lymphocyte % 37.6 % (19-41); Mean Corp Hgb Conc 36.6 g/dL (32-36); Mean Corpuscular Hgb 30.2 pg (27.0-32.0); Mean Corpuscular Volume 82.4 fL (81-99); Monocyte# 0.51 X10^3/uL; Monocyte% 6.1 % (0-10); NRBC Flagged by Analyzer 0 % (0-5); Neutrophil # 4.63 X10^3/uL (2.7-7.7); Neutrophil % 55.7 % (47-70); Platelet Count 192 K/mm3 (150-450); RBC Distribution Width CV 13.1 % (11.6-14.6); RBC Distribution Width SD 39.1 fl (35.1-43.9); Red Blood Count 4.61 M/mm3 (4.2-5.4); White Blood Count 8.3 K/mm3 (4.4-11.0)
[2023-01-21 12:34] LABS: Erythrocyte Sedimentation Rate < 1 mm/hr (0-30)
[2023-01-21 13:05] LABS: Vitamin B12 311 pg/mL (211-911)
[2023-01-21 13:44] LABS: Amylase 46 U/L (25-115); CRP < 2.90 mg/L (0.0-3.0); Free T3 2.4 pg/mL (2.18-3.98); Lipase 44 U/L (13-75); Magnesium 2.3 mg/dL (1.6-2.6); Phosphorus 3.5 mg/dL (2.5-4.9); T4 Free Direct 0.98 ng/dL (0.76-1.46)
[2023-01-24 13:07] LABS: Anti-Centromere B Ab <0.2 AI (0.0-0.9); Anti-Chromatin <0.2 AI (0.0-0.9); Anti-Jo <0.2 AI (0.0-0.9); Anti-Scleroderma-70 AB <0.2 AI (0.0-0.9); Anti-dsDNA Ab <1 IU/mL (0-9); RNP Ab 0.6 AI (0.0-0.9); SJOGREN'S Anti-SS-A test < 0.2 AI (0.0-0.9); SJOGREN'S Anti-SS-B test < 0.2 AI (0.0-0.9); Smith Ab <0.2 AI (0.0-0.9); Vitamin D 1,25-Dihydroxy 74.8 pg/mL (24.8-81.5)
[2023-01-26 09:09] LABS: Albumin 4.2 g/dL (2.9-4.4); Alpha-1-Globulins 0.2 g/dL (0.0-0.4); Alpha-2-Globulins 0.5 g/dL (0.4-1.0); Cytoplasmic Ab (C-ANCA) <1:20 titer (Neg:<1:20); Endomysial Antibody IgA Negative (Negative); Gamma Globulin 0.7 g/dL (0.4-1.8); Gastrin, Serum 430 pg/mL (0-115); Immunoglobulin A 120 mg/dL (87-352); Immunoglobulin E 17 IU/mL (6-495); Immunoglobulin G 735 mg/dL (586-1602); Immunoglobulin M 53 mg/dL (26-217); PROEL- TOTAL PROTEIN 6.5 g/dL (6.0-8.5); Perinuclear Ab (P-ANCA) <1:20 titer (Neg:<1:20); t-Transglutaminase IgA <2 U/mL (0-3)
== END | disposition home or self-care (01) ==
PROVIDERS: PCP Preventive Medicine Occupational Medicine; Visit Provider Internal Medicine Gastroenterology
DX: R19.7 Diarrhea, unspecified (principal)
CPT/HCPCS: 36415; 82150; 82607; 82652; 82746; 82784; 82785; 82941; 83516; 83690; 83735; 84100; 84165; 84439; 84443; 84481; 85025; 85652; 86140; 86225; 86235; 86255; 86256; 86334

== ENCOUNTER 2023-02-09 10:30 | Outpatient (RCR) | payer MEDICARE, MEDICAID, SELFPAY ==
[2022-12-03 10:43] VITALS: BMI 30.5
--- NOTE | 2023-01-18 15:25 | HP.OTEVAL ---
Patient's Visit Information Visit Information Visit Information: XI PANCHAL is a 67 year old F, referred to Occupational Therapy by Dr. Kanu Braxton DO, with a diagnosis of left distal radius intra-articular fx lower end. Date of Evaluation: 01/18/23 Occupational Therapist: Joanie Jasso, HERO/[place], CHT Subjective Subjective: This 67 year old female was seen for OT eval with dx of left intra-articular fx of distal radius with volar angulation - pt states fall was 11/07/22 pt went to ER and was scheduled for sx but due to cardiac issues she was unable to have sx- pt then was casted 6 weeks- cast was removed on 12/20/22. pt arrives to OT 4 weeks and 1 day from date of referral. Pt states she has noticed increase pain/ swelling and limited ability to use left hand with ADLs and IADLs. pt would like to know what she can do to decrease her pain and return to her PLOF. Pain left wrist: Current Pain Intensity: 3 Pain Intensity Range: 6 ROM Forearm: right 80/80 left supination 40 pronation WNL Wrist: right 65/70 left 50/55 Opposition: Kapandji opposition scale right 9 left 7 Strength Information Technology Director: right 25# left 10# Lateral Pinch: right 10# left 4# Edema PIP: right 7.5 left 7.9 Sensation Sensation Comments: states since neck and shoulder sx Quick DASH-Disab of Arm,Shoulder& Hand Quick DASH Score: 54.5450 Goals Goal:: pt will demo a increase in left pantograph machine operator strength by 10# to increase pts ind. with ADLs by d/c Goal:: pt will demo a increase in left wrist flex by 10* ext 15* to increase pts ind with ADls and IADls. Goal:: pt will report no pain greater than 2/10 with use of left UE with ADLs and IADls Goal:: Pt will demo understanding of joint protection and ergonomics when performing BADLs and IADLs by d/c Rehabilitation General Assessment: pt arrives 4 weeks and 1 day post cast removal- pt is 10 weeks 2 days out from DOI. pt demo with limited ROM pain and need of increase assistance with ADLs and IADls. pt would benefit from skilled OT service 1-2x week for 8 weeks to return pt to her PLOF. Today therapist ed. pt on AROM- advised to keep NWB and no lift of more than 3-5#. pt demo understanding and agree to POC. Rehabilitation Potential: Good Anticipated Interventions Anticipated Interventions: A/AAROM/PROM, Modalities, Orthoses, Joint Protection/Energy Conservation, Ergonomic Education, Education re assistive Equipment, Education re Diagnosis and Home Program Visit Plan Frequency: 1-2x /Week Duration: 6 Weeks TEXT: Thank you for the opportunity to evaluate your patient. For Medicare and Medicare HMO plans, please review the plan of care and approve it. It will need to be FAXED BACK to us at [phone] for Medicare purposes. Please let me know if there are questions or concerns regarding this plan of care. Physician Signature: Date:
== END 2023-02-09 19:00 | disposition home or self-care (01) ==
LOC: OT 10:30
PROVIDERS: PCP Preventive Medicine Occupational Medicine; Referring Provider Orthopaedic Surgery; Visit Provider Orthopaedic Surgery
DX: S52.572D Other intraarticular fracture of lower end of left radius, subsequent encounter for closed fracture with routine healing (principal)
CPT/HCPCS: 97110; 97166

== ENCOUNTER 2023-02-11 11:41 | Day surgery (SDC) | payer MEDICARE, MEDICAID, SELFPAY ==
[2022-12-03 10:43] VITALS: BMI 30.5
--- NOTE | 2023-02-11 | IMM_PTH ---
PATIENT: XI PANCHAL LOC: EN U#:[id number] AGE/SX: 67/F ROOM: RE02/11/[address]: Dr. Mychal Steinberg DO : 1955 BED: DIS: 02/11/2023 SPEC #: [id number] RECD: 02/14/23 09:01 STATUS: CRISTELA LAURYN #: [id number] JOSE: 02/11/23 00:[address]: Mychal Steinberg DEPT: IMMUNOHISTOCHEMISTRY RECD BY: Kimmie Garrett ENTERED: 02/14/23 09:02 SP TYPE: IMMUNO OTHR DR: Dr. John Centeno DO Tissues: B - Gastric mucous membrane Procedures: H Pylori (initial) PHYSICIAN & INSTITUTION [place] [id number] SPECIMEN INFORMATION: Tissue Source: Gastric body, biopsy Clinical Info: Diarrhea Specimen Number: [id number] CPT code: 92142 METHODOLOGY: Deparaffinized sections of prefer/formalin-fixed tissue or PAP/DQ stained slides are incubated with monoclonal/polyclonal antibodies/oligonucleotide probes. Localization is made via biotin free immunoperoxidase method. Appropriate controls are performed and reacted as expected. Results on target cell population are indicated in the following table: RESULTS: ANTIBODY / CLONE RESULT H Pylori (polyclonal) negative These tests were developed and their performance characteristics determined by [facility]. They may not have been cleared or approved by the U.S. Food and Drug Administration. The FDA has determined that such clearance or approval is not necessary. The above immunohistochemical/dualISH markers are ordered and reviewed by the Pathologist. INTERPRETATION: B. Gastric body, biopsy: Negative for Helicobacter pylori organisms. SJ:herb 02/15/2023
[2023-02-11 12:36] VITALS: BP 143/79; PULSE 73; RESP 16; TEMP 37.2; O2SAT 98; BMI 32.1
[2023-02-11] MEDS: Lactated Ringers 1,000 ML 15 ML IV (12:36)
--- NOTE | 2023-02-11 13:00 | EGD_PTH ---
PATIENT: XI PANCHAL LOC: EN U#:[id number] AGE/SX: 67/F ROOM: RE02/11/[address]: Dr. Mychal Steinberg DO : 1955 BED: DIS: 02/11/2023 SPEC #: [id number] RECD: 02/11/23 18:21 STATUS: CRISTELA LAURYN #: [id number] JOSE: 02/11/23 13:[address]: Mychal Steinberg DEPT: SURGICAL PATHOLOGY RECD BY: Suzie Cohen ENTERED: 02/14/23 08:22 SP TYPE: EGD BIOPSY OT DR: Dr. John Centeno DO Tissues: A - Duodenum, NOS B - Gastric mucous membrane C - COLON BIOPSY D - Ileum, NOS E - COLON BIOPSY Procedures: Surgery Specimen Level IV HEADER OPERATION: Colonoscopy, EGD PRE-OP DIAGNOSIS: Diarrhea TISSUE SUBMITTED: A. Duodenum, B. Gastric body, C. Ascending colon polyp, D. Terminal ileum, E. Random colon MICROSCOPIC DIAGNOSIS A. Duodenum, biopsy: Fragments of duodenal mucosa, no pathologic diagnosis. B. Gastric body, biopsy: Mild gastritis. See microscopic description and comment. C. Ascending colon polyp, biopsy: Fragments of colonic mucosa, no pathologic diagnosis. D. Terminal ileum, biopsy: Fragments of small intestinal mucosa, no pathologic diagnosis. E. Random colon, biopsy: Fragments of colonic mucosa, no pathologic diagnosis. SJ: 02/15/2023 COMMENT B. The results of immunohistochemistry for Helicobacter pylori will be reported separately ([id number]). MICROSCOPIC DESCRIPTION Slides are reviewed. The specimen shows fragments of gastric mucosa with chronic inflammatory cell infiltrates in the lamina propria consisting of lymphocytes and plasma cells, consistent with mild chronic gastritis. GROSS DESCRIPTION A. Received is one container labeled with the patient name and designated duodenum. The specimen consists of multiple irregular fragments of light greenberg soft tissue that in aggregate measure 1 x .3 x .1 cm. The specimen is totally submitted in one cassette. B. Received is one container labeled with the patient name and designated gastric body. The specimen consists of multiple irregular fragments of light greenberg soft tissue that in aggregate measure 1 x .3 x .1 cm. The specimen is totally submitted in one cassette. C. Received is one container labeled with the patient name and designated ascending colon polyp. The specimen consists of two irregular fragment of light greenberg soft tissue that measures .6 x 3 x .1 cm. The specimen is totally submitted in one cassette. D. Received is one container labeled with the patient name and designated terminal ileum. The specimen consists of multiple irregular fragment of light greenberg soft tissue that measures .6 x .3 x .1 cm. The specimen is totally submitted in one cassette. E. Received is one container labeled with the patient name and designated random colon. The specimen consists of multiple irregular fragments of light greenberg soft tissue that in aggregate measure 1 x .3 x .1 cm. The specimen is totally submitted in one cassette. / SJ:cc 02/14/23 TC:3 CPT: 76932g 5
--- NOTE | 2023-02-11 13:09 | HP.PCM_ITS ---
History and Physical Date of Admission: 02/11/23 67 F who presents to the office today for follow up. GI Dr. Gomez established for management of IBS with loose stools, abdominal pain and bloating?Colonoscopy 01.12.18?without acute/chronic visual finding. Pathology without changes.? PCP OV 09.01.22 with current loose, frequent stools that have been occurring for several years and recent, gradual worsening.? OV 01.21.23 Pt reports hx of IBS the past 4 years with worsening sx. Had a bowel resection 15 years ago r/t diverticulitis. Experiences nausea, abdominal pain, bloating and diarrhea. Sx made worse after eating. Feels as though she gets full quickly and cannot finish a meal due to increased pain. Has urgent diarrhea after meals. Has tried Lomotil for diarrhea but says it makes her constipated sometimes. Zofran helpful for nausea. ROS Const Constitutional: Positive for fatigue and weight change ENT ENT: No difficulty swallowing Gastro GI: Positive for abdominal pain, bloating, change in bowel habits, constipation, diarrhea, excessive flatus and nausea/dyspepsia; No belching, change in stool character, coffee ground emesis, cramping, heartburn, difficulty swallowing, feeling full early, incontinent of stools, Vomiting blood/hematemesis, Blood in stool, loose stools, Black,tarry stools, pain with swallowing, vomiting or other Musc Musculoskeletal: Positive for joint pain, muscle weakness, stiffness and Arthritis Skin Skin: No yellowing of the eye or itchy eyes Psych Psychiatric: Positive for anxiety and Positive for depression Endo Endocrine: Positive for fatigue and weight change Aller/Imm Allergy/Immunologic: No itchy eyes Troy/Lymp Hematologic/Lymphatic: No easy bleeding or easy bruising Exam Const General: cooperative and comfortable Nutritional Appearance: average body habitus and well nourished HENMI Head: normal to inspection Ears: hearing grossly normal bilaterally Nose: external nose normal Face and sinus: normal facial exam Mouth: oral mucosae normal Throat: posterior oropharynx normal Eyes General: appearance normal, both eyes and all related structures Neck Neck: normal visual inspection Chest Chest palpation & inspection: normal inspection of the chest and normal palpation of entire chest wall Resp Effort & Inspection: normal respiratory effort Auscultation: Bilateral: Clear to Auscultation Cardio Palpation: normal PMI Rate: regular rate Rhythm: regular rhythm GI Inspection: normal to inspection Auscultation: normal bowel sounds Percussion: normal to percussion Palpation: no hepatosplenomegaly Skin General: no rashes or lesions noted Neuro General: patient alert Extrem General: normal to inspection Psych Affect: normal affect Quality Reporting Tobacco Screening ([facility]) Smoking Status: Former smoker Assessment and Plan Assessment and Plan (1) Diarrhea: Status: Acute Qualifiers: Diarrhea type: functional diarrhea Qualified Code(s): K59.1 - Functional diarrhea Plan: Her diarrhea started 4 years prior, described as 5-6 loose daily non-bloody bowel movements with associated cramping. Overtime, it increased in frequency and was associated with fecal incontinence and 25 lb weight loss. Physical exam and basic laboratory testing was unremarkable. She did have a colonoscopy approximately 5 years ago for polyp surveillance. She does not know if she underwent any biopsies for microscopic colitis and if the terminal ileum was evaluated during that time. I do not think it was because she said that her symptoms were not that bad at that time. When she started losing weight and needing Imodium on a daily basis it became more of a problem to her. She does have possible rheumatoid arthritis and has been on methotrexate and Plaquenil for multiple years. She says her liver function tests have been normal and they have been monitoring by her primary care provider. She does have a history of diverticular disease resulting in diverticulitis and diverticular stricture status post segmental resection of the sigmoid colon with primary anastomosis. She denies any rashes, ulcers or lesions. She also denies any myalgias. She does get intermittent fatigue but she associates that with her previous rheumatologic diagnosis. She will undergo stool testing and biochemical testing and radiologic imaging. Depending on what those studies show she may need an upper or lower endoscopy to evaluate her upper lower GI tract and or confirm any findings that may be discovered on imaging or biochemical testing or stool testing. Orders: Orders FRANCISCO JAVIER + Protein Elect, Serum Today R19.7 - Diarrhea, unspecified CBC W/Diff, Automated Today R19.7 - Diarrhea, unspecified ANCA Today R19.7 - Diarrhea, unspecified Celiac Disease Profile Today R19.7 - Diarrhea, unspecified CRP Today R19.7 - Diarrhea, unspecified Erythrocyte Sed Rate Today R19.7 - Diarrhea, unspecified Immunoglobulin E Today R19.7 - Diarrhea, unspecified Miscellaneous Lab Procedure Today R19.7 - Diarrhea, unspecified Amylase Today R19.7 - Diarrhea, unspecified Lipase Today R19.7 - Diarrhea, unspecified Fecal Fat, Qualitative Today R19.7 - Diarrhea, unspecified Pancreatic Elastase, Fecal Today R19.7 - Diarrhea, unspecified STEPHEN Comprehensive Panel Today R19.7 - Diarrhea, unspecified Calprotectin, Stool Today R19.7 - Diarrhea, unspecified Stool Lactoferrin/WBC Today K58.9 - Irritable bowel syndrome without diarrhea, R19.7 - Diarrhea, unspecified Thyroid Stim Hormone (TSH) Today R19.7 - Diarrhea, unspecified Vitamin B12 Today R19.7 - Diarrhea, unspecified Vitamin D 1,25-Dihydroxy Today R19.7 - Diarrhea, unspecified Free T3 Today R19.7 - Diarrhea, unspecified T4 Free Direct Today R19.7 - Diarrhea, unspecified Folates, (Folic Acid) Today R19.7 - Diarrhea, unspecified ENTERIC PATHOGEN PANEL STOOL Today K58.9 - Irritable bowel syndrome without diarrhea, R19.7 - Diarrhea, unspecified CDIFF (PCR) Today R19.7 - Diarrhea, unspecified OVA+PARA w/Giardia EIA [id number] Today R19.7 - Diarrhea, unspecified H. PYLORI STOOL AG Today R19.7 - Diarrhea, unspecified Magnesium Today R19.7 - Diarrhea, unspecified Phosphorus Today R19.7 - Diarrhea, unspecified Enterography Abd/Pel Today R19.7 - Diarrhea, unspecified Gastrin, Serum Today R19.7 - Diarrhea, unspecified Coding Level of Care Code Off vis,new,level 4 Diagnoses Functional diarrhea K59.1 Diarrhea type: functional diarrhea I have examined the patient and the H&P has been reviewed. There are no clinical changes since date of exam.
[2023-02-11 14:30] VITALS: BP 143/77; BP 143/79; PULSE 66; RESP 16; TEMP 36.6; O2SAT 99
--- NOTE | 2023-02-11 14:32 | OP.CCLET_ITS ---
02/11/2023 John Centeno [address] [place] [address] Re : Upper GI endoscopy procedure for Nadira Benítez Dear Dr. Centeno This procedure was performed on Saturday, February 11, 2023. My impressions and recommendations are as follows: Impressions : - Normal esophagus. - Erythematous mucosa in the gastric body. Biopsied. - Gastric stenosis was found at the pylorus. Dilated. - No gross lesions in the second portion of the duodenum. Biopsied. Recommendations : - Discharge patient to home. - Resume previous diet. - Continue present medications. - Await pathology results. My findings are described in the full procedure note, which is enclosed. If I can be of further assistance, please feel free to contact me at . Sincerely, Mychal Friend, 02/11/2023 2:32:01 PM This report has been signed electronically.
--- NOTE | 2023-02-11 14:32 | OP.EGD_ITS ---
Patient Name: Nadira Benítez Procedure Date: 02/11/2023 1:46 PM Date of : 1955 Age: 67 Procedure: Upper GI endoscopy Indications: Functional Dyspepsia Providers: DO Venus Mansfield MD: John Centeno Medicines: Monitored Anesthesia Care Patient Profile: This is a 67 year old female. Refer to note in patient chart for documentation of history and physical. Patient has symptoms of chronic abdominal cramping and chronic dyspepsia. Complications: No immediate complications. Procedure: Pre-Anesthesia Assessment: - Prior to the procedure, a History and Physical was performed, and patient medications and allergies were reviewed. The patient is competent. The risks and benefits of the procedure and the sedation options and risks were discussed with the patient. All questions were answered and informed consent was obtained. Patient identification and proposed procedure were verified by the physician in the pre-procedure area. Mental Status Examination: normal. Airway Examination: normal oropharyngeal airway and neck mobility. Respiratory Examination: clear to auscultation. CV Examination: normal. Prophylactic Antibiotics: The patient does not require prophylactic antibiotics. Prior Anticoagulants: The patient has taken no anticoagulant or antiplatelet agents. ASA Grade Assessment: II - A patient with mild systemic disease. After reviewing the risks and benefits, the patient was deemed in satisfactory condition to undergo the procedure. The anesthesia plan was to use monitored anesthesia care (MAC). Immediately prior to administration of medications, the patient was re-assessed for adequacy to receive sedatives. The heart rate, respiratory rate, oxygen saturations, blood pressure, adequacy of pulmonary ventilation, and response to care were monitored throughout the procedure. The physical status of the patient was re-assessed after the procedure. After obtaining informed consent, the endoscope was passed under direct vision. Throughout the procedure, the patient's blood pressure, pulse, and oxygen saturations were monitored continuously. The Colonoscope was introduced through the mouth, and advanced to the second part of duodenum. The upper GI endoscopy was accomplished without difficulty. The patient tolerated the procedure well. Scope In: 2:00:41 PM Scope Out: 2:05:47 PM Total Procedure Duration Time 0 hours 5 minutes 6 seconds Findings: The examined esophagus was normal. Patchy mildly erythematous mucosa without bleeding was found in the gastric body. Biopsies were taken with a cold forceps for histology. Verification of patient identification for the specimen was done. Estimated blood loss was minimal. Biopsies were taken with a cold forceps for Helicobacter pylori testing. Verification of patient identification for the specimen was done. Estimated blood loss was minimal. A benign-appearing, intrinsic moderate stenosis was found at the pylorus. This was traversed. A TTS dilator was passed through the scope. Dilation with a 12 mm pyloric balloon dilator was performed. The dilation site was examined and showed moderate improvement in luminal narrowing. Estimated blood loss was minimal. No gross lesions were noted in the second portion of the duodenum. Biopsies were taken with a cold forceps for histology. Verification of patient identification for the specimen was done. Estimated blood loss was minimal. A hiatal hernia was present. Impression: - Normal esophagus. - Erythematous mucosa in the gastric body. Biopsied. - Gastric stenosis was found at the pylorus. Dilated. - No gross lesions in the second portion of the duodenum. Biopsied. Recommendation: - Discharge patient to home. - Resume previous diet. - Continue present medications. - Await pathology results. Procedure Code(s): --- Professional --- 55240, Esophagogastroduodenoscopy, flexible, transoral; with dilation of gastric/duodenal stricture(s) (eg, balloon, bougie) 19429, 59,51, Esophagogastroduodenoscopy, flexible, transoral; with biopsy, single or multiple CPT copyright 2021 [employer]. All rights reserved. The codes documented in this report are preliminary and upon improvement intern review may be revised to meet current compliance requirements. Mychal Steinberg DO 02/11/2023 2:32:01 PM This report has been signed electronically. Number of Addenda: 0 Note Initiated On: 02/11/2023 1:46 PM
[2023-02-11 14:35] VITALS: BP 112/73; BP 143/79; PULSE 63; RESP 16; O2SAT 99
--- NOTE | 2023-02-11 14:36 | OP.CCLET_ITS ---
02/11/2023 John Centeno [address] [place] [address] Re : Colonoscopy procedure for Nadira Benítez Dear Dr. Centeno This procedure was performed on Saturday, February 11, 2023. My impressions and recommendations are as follows: Impressions : - Congested mucosa in the sigmoid colon, in the ascending colon and in the cecum. Biopsied. - Diverticulosis in the recto-sigmoid colon, in the sigmoid colon, in the descending colon, at the splenic flexure, in the transverse colon and in the ascending colon. - The examined portion of the ileum was normal. Biopsied. Recommendations : - Discharge patient to home [Means]. - Resume previous diet. - Continue present medications. - Await pathology results. - Repeat colonoscopy in 5 years for surveillance. My findings are described in the full procedure note, which is enclosed. If I can be of further assistance, please feel free to contact me at . Sincerely, Mychal Steinberg, 02/11/2023 2:35:30 PM This report has been signed electronically.
--- NOTE | 2023-02-11 14:36 | OP.COLON_ITS ---
Patient Name: Nadira Benítez Procedure Date: 02/11/2023 2:06 PM Date of : 1955 Age: 67 Procedure: Colonoscopy Indications: Clinically significant diarrhea of unexplained origin Providers: Mychal Steinberg DO Referring MD: John Centeno Medicines: Monitored Anesthesia Care Patient Profile: This is a 67 year old female. Refer to note in patient chart for documentation of history and physical. Patient has symptoms of chronic abdominal cramping and chronic dyspepsia. Last Colonoscopy: date unknown. Unable to locate last colonoscopy report. Complications: No immediate complications. Procedure: Pre-Anesthesia Assessment: - Prior to the procedure, a History and Physical was performed, and patient medications and allergies were reviewed. The patient is competent. The risks and benefits of the procedure and the sedation options and risks were discussed with the patient. All questions were answered and informed consent was obtained. Patient identification and proposed procedure were verified by the physician in the pre-procedure area. Mental Status Examination: normal. Airway Examination: normal oropharyngeal airway and neck mobility. Respiratory Examination: clear to auscultation. CV Examination: normal. Prophylactic Antibiotics: The patient does not require prophylactic antibiotics. Prior Anticoagulants: The patient has taken no anticoagulant or antiplatelet agents. ASA Grade Assessment: II - A patient with mild systemic disease. After reviewing the risks and benefits, the patient was deemed in satisfactory condition to undergo the procedure. The anesthesia plan was to use monitored anesthesia care (MAC). Immediately prior to administration of medications, the patient was re-assessed for adequacy to receive sedatives. The heart rate, respiratory rate, oxygen saturations, blood pressure, adequacy of pulmonary ventilation, and response to care were monitored throughout the procedure. The physical status of the patient was re-assessed after the procedure. After I obtained informed consent, the scope was passed under direct vision. Throughout the procedure, the patient's blood pressure, pulse, and oxygen saturations were monitored continuously. The Colonoscope was introduced through the anus and advanced to the terminal ileum. The colonoscopy was performed without difficulty. The patient tolerated the procedure well. The quality of the bowel preparation was good. The terminal ileum, ileocecal valve, appendiceal orifice, and rectum were photographed. Scope In: 2:08:44 PM Scope Withdrawal Time 0 hours 8 minutes 25 seconds Scope Out: 2:22:43 PM Total Procedure Duration Time 0 hours 13 minutes 59 seconds Findings: The perianal and digital rectal examinations were normal. An area of mildly congested mucosa was found in the sigmoid colon, in the ascending colon and in the cecum. Biopsies for histology were taken with a cold forceps from the cecum, ascending colon, right colon, left colon, right transverse colon, descending colon, sigmoid colon and rectum for evaluation of microscopic colitis. Multiple small and large-mouthed diverticula were found in the recto-sigmoid colon, sigmoid colon, descending colon, splenic flexure, transverse colon and ascending colon. The terminal ileum appeared normal. Biopsies were taken with a cold forceps for histology. Verification of patient identification for the specimen was done. Estimated blood loss was minimal. A 5 mm polyp was found in the ascending colon. The polyp was sessile. The polyp was removed with a cold snare. Resection and retrieval were complete. Verification of patient identification for the specimen was done. Estimated blood loss was minimal. Impression: - Congested mucosa in the sigmoid colon, in the ascending colon and in the cecum. Biopsied. - Diverticulosis in the recto-sigmoid colon, in the sigmoid colon, in the descending colon, at the splenic flexure, in the transverse colon and in the ascending colon. - The examined portion of the ileum was normal. Biopsied. Recommendation: - Discharge patient to home [Means]. - Resume previous diet. - Continue present medications. - Await pathology results. - Repeat colonoscopy in 5 years for surveillance. Procedure Code(s): --- Professional --- 73545, Colonoscopy, flexible; with removal of tumor(s), polyp(s), or other lesion(s) by snare technique 71854, 59, Colonoscopy, flexible; with biopsy, single or multiple CPT copyright 2021 [employer]. All rights reserved. The codes documented in this report are preliminary and upon conference services director review may be revised to meet current compliance requirements. Mychal Steinberg DO 02/11/2023 2:35:30 PM This report has been signed electronically. Number of Addenda: 0 Note Initiated On: 02/11/2023 2:06 PM
[2023-02-11 14:40] VITALS: BP 127/71; BP 143/79; PULSE 59; RESP 16; O2SAT 99
[2023-02-11 14:45] VITALS: BP 126/77; BP 143/79; PULSE 61; RESP 16; TEMP 36.7; O2SAT 100
[2023-02-11 15:03] VITALS: BP 143/79
== END 2023-02-11 15:10 | disposition home or self-care (01) ==
LOC: EN 11:42 → AC 11:43
PROVIDERS: PCP Preventive Medicine Occupational Medicine; Referring Provider Preventive Medicine Occupational Medicine; Visit Provider Internal Medicine Gastroenterology
PROC: 0DJD8ZZ Inspection of Lower Intestinal Tract, Via Natural or Artificial Opening Endoscopic (ICD-10-PCS; CPT 45378; principal; 2023-02-11 12:55)
DX: K29.70 Gastritis, unspecified, without bleeding (principal); K57.30 Diverticulosis of large intestine without perforation or abscess without bleeding; Z87.891 Personal history of nicotine dependence; K58.9 Irritable bowel syndrome, unspecified; K59.1 Functional diarrhea; K31.1 Adult hypertrophic pyloric stenosis; K63.5 Polyp of colon; Z79.899 Other long term (current) drug therapy; Z79.82 Long term (current) use of aspirin; K21.9 Gastro-esophageal reflux disease without esophagitis; I10 Essential (primary) hypertension; E78.00 Pure hypercholesterolemia, unspecified
CPT/HCPCS: 43245; 45380; 43239; 45385; 88305; 88342; J7120; J2405

== ENCOUNTER → 2023-03-10 | Outpatient (CLI) | payer MEDICARE, MEDICAID, SELFPAY ==
[2022-12-03 10:43] VITALS: BMI 30.5
--- NOTE | 2023-03-10 11:32 | MRI_ITS ---
EXAM: MR ABDOMEN AND PELVIS WITHOUT AND WITH INTRAVENOUS CONTRAST CLINICAL INDICATION: R19.7 - Diarrhea, unspecified TECHNIQUE: Multiplanar and multisequence MR images of the abdomen and pelvis without and with intravenous contrast in the prone position. Magnetic field strength 1.5 T. CONTRAST: 17 cc of Clariscan IV. COMPARISON: No relevant prior studies available. FINDINGS: LOWER THORAX: Unremarkable. No pleural effusion. ABDOMEN: LIVER: Unremarkable. Normal morphology. No focal mass. GALLBLADDER AND BILE DUCTS: Unremarkable. No gallstones. No gallbladder distention or wall edema. No intra- or extrahepatic biliary ductal dilation. PANCREAS: Unremarkable. No focal cystic or solid mass. SPLEEN: Unremarkable. Normal size without focal cystic or solid mass. ADRENALS: Unremarkable. No nodules. KIDNEYS AND URETERS: Unremarkable. Normal renal size and position. No hydronephrosis. STOMACH AND BOWEL: The stomach and small bowel are well distended with fluid. No bowel wall thickening identified. No bowel masses. PELVIS: APPENDIX: Normal appendix. BLADDER: Unremarkable. OVARIES: Unremarkable as visualized. No mass or complex cyst. UTERUS/CERVIX: Unremarkable. No mass. Endometrial stripe is normal in thickness and appearance. ABDOMEN and PELVIS: INTRAPERITONEAL SPACE: Unremarkable. No ascites or other fluid collection. VASCULATURE: Unremarkable. Abdominal aorta is non-dilated. LYMPH NODES: No enlarged lymph nodes. MRI/Enterography Abd/Pel IMPRESSION: Impression. Normal MR enterography. No acute intra-abdominal abnormality. No stomach, small bowel, or colon abnormalities identified. Electronically Signed: Jd Cunningham MD at 0:45 EST ,
[2023-03-10 12:05] VITALS: BP 163/93; PULSE 73; RESP 16; O2SAT 98; BMI 32.5
[2023-03-10 12:15] LABS: CREATININE FINGERSTICK < 1.0 mg/dL (0.55-1.02); EGFR FINGERSTICK > 60.0000 mL/min (>60)
[2023-03-10] MEDS: Glucagon 1 MG/ML Syringe IV (13:19)
[2023-03-10 13:37] VITALS: BP 172/96; PULSE 83; RESP 16; O2SAT 97
[2023-03-19 18:07] LABS: H. PYLORI STOOL AG Negative (Negative); Pancreatic Elastase, Fecal 167 (>200)
[2023-03-21 21:07] LABS: Calprotectin, Stool 18 ug/g (0-120); Fats, Neutral Normal (.); Fats, Total Normal (.)
== END | disposition home or self-care (01) ==
PROVIDERS: PCP Preventive Medicine Occupational Medicine; Referring Provider Internal Medicine Gastroenterology; Visit Provider Internal Medicine Gastroenterology
DX: R19.7 Diarrhea, unspecified (principal); K58.9 Irritable bowel syndrome, unspecified
CPT/HCPCS: 74183; 82653; 82705; 83630; 83993; 87177; 87209; 87329; 87338; 87493; 96374; A9575; A4216; J1610

== ENCOUNTER → 2023-03-16 | Outpatient (CLI) | payer MEDICARE, MEDICAID, SELFPAY ==
[2022-12-03 10:43] VITALS: BMI 30.5
== END | disposition home or self-care (01) ==
LOC: LABSPEC 10:21
PROVIDERS: PCP Preventive Medicine Occupational Medicine; Referring Provider Internal Medicine Gastroenterology; Visit Provider Internal Medicine Gastroenterology
DX: R19.7 Diarrhea, unspecified (principal)
CPT/HCPCS: 87177; 87209; 87329

== ENCOUNTER → 2023-08-30 | Outpatient (CLI) | payer MEDICARE, MEDICAID, SELFPAY ==
[2023-08-02 12:05] VITALS: BMI 30.5
[2023-08-30 14:33] LABS: Hematocrit 35.7 % (37-47); Hemoglobin 12.4 g/dL (12.0-15.0); Mean Corp Hgb Conc 34.7 g/dL (32-36); Mean Corpuscular Hgb 29.5 pg (27.0-32.0); Mean Corpuscular Volume 84.8 fL (81-99); Mean Platelet Vol. 9.4 fl (6.2-12.0); Platelet Count 183 K/mm3 (150-450); RBC Distribution Width CV 13.1 % (11.6-14.6); Red Blood Count 4.21 M/mm3 (4.2-5.4); White Blood Count 8.5 K/mm3 (4.4-11.0)
[2023-08-30 15:10] LABS: ALB/GLOB Ratio 1.1 RATIO (0.9-2.4); AST(SGOT) 14 U/L (15-37); Alanine Aminotransfer ALT/SGPT 17 U/L (13-56); Albumin, Serum 3.8 g/dL (3.2-5.0); Alkaline Phosphatase 74 U/L (45-117); Anion Gap 9 (5-15); BUN 10 mg/dL (7-18); BUN/Creat Ratio 18.8 RATIO (10-20); Calcium,Total 9.3 mg/dL (8.5-10.1); Chloride 105 mmol/L (98-107); Cholesterol 182 mg/dL (200); Creatinine, Serum 0.53 mg/dL (0.55-1.02); EST Glomerular Filtration Rate 122 mL/min (>60); Est Glom Filt Rate - Afr Amer 147 mL/min (>60); Globulin 3.4 g/dL (2.2-4.2); Glucose 83 mg/dL (74-106); High Density Lipoprotein 68 mg/dL; Potassium 3.9 mmol/L (3.5-5.1); Protein, Total 7.2 g/dL (6.4-8.2); Sodium Level 139 mmol/L (136-145); Triglycerides 160 mg/dL; Very Low Density Lipoprotein 32 mg/dL (5-40)
== END | disposition home or self-care (01) ==
PROVIDERS: PCP Preventive Medicine Occupational Medicine; Referring Provider Internal Medicine Cardiovascular Disease; Visit Provider Internal Medicine Cardiovascular Disease
DX: I10 Essential (primary) hypertension (principal); I25.10 Atherosclerotic heart disease of native coronary artery without angina pectoris; E78.5 Hyperlipidemia, unspecified
CPT/HCPCS: 36415; 80053; 80061; 85027

== ENCOUNTER → 2023-11-29 | Outpatient (CLI) | payer MEDICARE, MEDICAID, SELFPAY ==
[2023-08-02 12:05] VITALS: BMI 30.5
--- NOTE | 2023-11-30 15:06 | STRESSREP_ITS ---
Stress Test Report Date: 11/29/2023 Procedure: Pharmacologic stress nuclear imaging study Indications: Chest pain Consent: Per the patient Procedure: The patient underwent pharmacologic (Regadenoson) evaluation with a peak heart rate of 82 beats per minute (53%predicted maximal heart rate) and a peak blood pressure of 132/80 mmHg. The baseline ECG demonstrated normal sinus rhythm, nonspecific ST-T changes. EKG during lexiscan infusion revealed no significant ischemic changes. EKG post infusion revealed no significant ischemic changes [There were no cardiac dysrhythmias pretest, during pharmacologic infusion, or recovery]. [There was no complaint of chest discomfort during pharmacologic infusion or recovery]. The examination was discontinued secondary to completion of protocol. Impression: 1. Lexiscan stress test test is negative for Lexiscan infusion induced EKG changes of ischemia. 2. Lexiscan stress test test is negative for Lexiscan infusion induced chest pain. 3. Results of the nuclear portion of the test is as below Myocardial perfusion imaging study: Technique: The patient was injected with 12 millicuries of technetium 99m Cardiolite and subsequently rest SPECT Cardiolite nuclear imaging was obtained in the horizontal long, vertical long, and short axis views. The patient underwent pharmacologic [Regadenoson 0.4mg] evaluation. Please see above for details. The patient was injected with 36 millicuries of technetium 99m Cardiolite and subsequently stress SPECT Cardiolite nuclear imaging was obtained in the horizontal long, vertical long, and short axis views. A gated Cardiolite study at peak stress was obtained. Interpretation: Rest and stress SPECT Cardiolite nuclear imaging status post realignment, normalization, and attenuation correction demonstrate overall normal myocardial radioisotope uptake. Gated images reveal no significant regional wall motion abnormalities. The reported LVEF is greater than 70%. Impression: 1. There is no evidence of significant ischemia or infarction. 2. Estimated ejection fraction is greater than 70%. This note was generated with [employer] software. It may contain incorrect words, spelling, and punctuation that were not noted in checking the note before signing.
== END | disposition home or self-care (01) ==
LOC: CVS 06:37
PROVIDERS: PCP Preventive Medicine Occupational Medicine; Referring Provider Physician Assistant Medical; Visit Provider Physician Assistant Medical
DX: R07.9 Chest pain, unspecified (principal)
CPT/HCPCS: 78452; 93017; A9500; A4216; J2785

== ENCOUNTER → 2024-08-27 | Outpatient (CLI) | payer MEDICARE, SELFPAY ==
[2023-08-02 12:05] VITALS: BMI 30.5
[2024-08-27 15:52] LABS: Absolute Lymphocyte Count 5.88 X10^3/uL (0.83-4.51); Absolute Neutrophil Count 4.5 X10^3/uL (2.0-7.7); Basophil# 0.05 X10^3/uL; Basophil% 0.4 % (0-1); Eosinophil# 0.45 X10^3/uL; Eosinophils% 3.7 % (0-5); Hematocrit 36.5 % (37-47); Hemoglobin 13.2 g/dL (12.0-15.0); Lymphocyte # 5.88 X10^3/ul (0.83-4.51); Mean Corp Hgb Conc 36.2 g/dL (32-36); Mean Corpuscular Hgb 30.2 pg (27.0-32.0); Mean Corpuscular Volume 83.5 fL (81-99); Mean Platelet Vol. 9.2 fl (6.2-12.0); Monocyte# 1.04 X10^3/uL; Monocyte% 8.7 % (0-10); NRBC Flagged by Analyzer 0 % (0-5); Neutrophil # 4.54 X10^3/uL (2.7-7.7); Neutrophil % 37.8 % (47-70); POSITIVE DIFFERENTIAL YES; POSITIVE MORPHOLOGY YES; Platelet Count 224 K/mm3 (150-450); RBC Distribution Width CV 12.6 % (11.6-14.6); RBC Distribution Width SD 38.2 fl (35.1-43.9); Red Blood Count 4.37 M/mm3 (4.2-5.4)
[2024-08-27 15:58] LABS: Differential Indicated SCAN CRITERIA MET
[2024-08-27 16:20] LABS: ALB/GLOB Ratio 1.8 RATIO (0.9-2.4); AST(SGOT) 21 U/L (<=31); Alanine Aminotransfer ALT/SGPT 8 U/L (<=34); Albumin, Serum 4.7 g/dL (3.4-4.8); Alkaline Phosphatase 86 U/L (35-104); Anion Gap 11 (5-15); BUN 5 mg/dL (4-19); BUN/Creat Ratio 8.1 RATIO (10-20); Calcium,Total 9.9 mg/dL (7.6-11.0); Carbon Dioxide 25.1 mmol/L (21.0-32.0); Chloride 105 mmol/L (98-108); Creatinine, Serum 0.63 mg/dL (0.70-1.20); EST Glomerular Filtration Rate 96 (>60); Globulin 2.6 g/dL (2.2-4.2); Glucose 93 mg/dL (70-99); Potassium 3.8 mmol/L (3.3-5.1); Protein, Total 7.2 g/dL (5.9-8.4); Sodium Level 141 mmol/L (133-145); Total Bilirubin 0.83 mg/dL (0.00-1.30)
[2024-08-27 16:21] LABS: CRP < 3.00 mg/L (0.0-3.0)
[2024-08-27 17:39] LABS: Platelet Estimate ADEQUATE (ADEQ)
== END | disposition home or self-care (01) ==
LOC: LAB 15:01
PROVIDERS: PCP Preventive Medicine Occupational Medicine
DX: K86.81 Exocrine pancreatic insufficiency (principal); R19.7 Diarrhea, unspecified
CPT/HCPCS: 36415; 80053; 85025; 86140

== ENCOUNTER → 2025-03-05 | Outpatient (CLI) | payer MEDICARE, SELFPAY ==
[2023-08-02 12:05] VITALS: BMI 30.5
--- OUTSIDE RECORDS SUMMARY | 2025-03-05 06:55 | XMS RPT_ITS | CCD ---
Author Organization [facility] Care Team Providers Care Environmental Marketing Representative Name Role Phone MARIA TERESA GOFF DO Primary Care Physician Dr. Maria Teresa Goff Primary Care Provider Dr. Maria Teresa Goff Referring Provider [phone] Dr. Laureano Taylor Attending Provider [phone] Dr. Blu Alvarado Attending Provider [phone] Maria Teresa Goff DO Primary Care Provider [phone] Mack Berg MD Unavailable Humberto Tate MD Unavailable Dr. Maria Teresa Goff Primary Care Provider Dr. Maria Teresa Goff Referring Provider [phone] ARY Gregg Attending Provider [phone] Dr. Mark Salazar Attending Provider [phone] Kanu Braxton Attending Provider [phone] Dr. Ishaan Smalls Attending Provider [phone] Dr. Kanu Braxton Referring Provider [phone] ARY Petit Attending Provider ARY Petit Referring Provider ARY Petit Other Provider [phone] MARIA TERESA GOFF Primary Care Unavailable MARIA TERESA GOFF Primary Care Unavailable Friend, Dr. Horta Attending Provider [phone] Friend, Dr. Horta Other Provider [phone] Dr. Maria Teresa Goff Primary Care Provider Dr. Maria Teresa Goff Referring Provider [phone] Dr. Kanu Braxton Attending Provider [phone] Dr. Jd Deal Attending Provider MARIA TERESA GOFF DO Attending Unavailable SHELL CARLOS, MARIA TERESA Primary Care Unavailable SHELL CARLOS, MARIA TERESA Attending Unavailable SHELL CARLOS, MARIA TERESA Primary Care Unavailable Shell CARLOS, Maria Teresa F Primary Care Provider [phone] MARIA TERESA GOFF Primary Care Unavailable CARINA CAAL Attending Unavailabl e Unavailable Primary Care Provider Unavaildonna e Shell CARLOS, Dr. Lopez Primary Care Provider [phone] Dr. Maria Teresa Goff DO Referring Provider Ugo BIOLOGY LABORATORY ASSISTANT-CLiz Attending Provider [phone] VANESSA ALLISON PA-C Attending Unavailable SHELL CARLOS, MARIA TERESA Primary Care Unavailable PARKER ROPE TWISTING MACHINE OPERATOR-DEVELOPMENT AND HOUSING DIRECTOR, BALDO Primary Care Unavai brad MOSES ROPE TWISTING MACHINE OPERATOR-DEVELOPMENT AND HOUSING DIRECTOR, BALDO Attending Tazi brad MOSES APRN-DEVELOPMENT AND HOUSING DIRECTOR, BALDO Attending Melissa MOSES APRN-DEVELOPMENT AND HOUSING DIRECTOR, BALDO Primary Care Dr. Maria Teresa Maddox DO Primary Care Physician Dr. Maria Teresa Goff DO Referring Provider Wandy MURILLO-Rajat Shore Attending Physician [phone] Maria Teresa Goff Referring Unavailable Rajat Saba NP Attending Unavailable Maria Teresa Goff Primary Care Unavailable Maria Teresa Goff Referring Unavailable Maria Teresa Goff Primary Care Unavailable Liz Arizmendi Attending Unavailable Maria Teresa Goff Referring Unavailable Kanu Braxton Attending Unavailable Maria Teresa Goff Primary Care Unavailable Maria Teresa Goff Referring Unavailable Maria Teresa Goff Primary Care Unavailable Mychal Steinberg Attending Unavailable Maria Teresa Goff Primary Care Unavailable Liz Arizmendi Referring Unavailable Liz Arizmendi Attending Unavailable Maria Teresa Goff Primary Care Unavailable Willam Benavidez Attending Unavailable Wandy BIOLOGY LABORATORY ASSISTANTRajat Attending Unavailable Wandy BIOLOGY LABORATORY ASSISTANTRajat Referring Unavailable Maria Teresa Goff Primary Care Unavailable Allergies Allergy Classification Reported Allergen(s) Allergy Type Date of Onset Reaction(s) Facility (8 sources) Sulfamethoxazole Drug Allergy [address] [facility] (8 sources) Trimethoprim Drug Allergy [address] [facility] (6 sources) Sulfamethoxazole / Trimethoprim; Translations: [SULFAMETHOXAZOLE-TR IMETHOPRIM] Drug Allergy 5 [facility] Work Phone: (1 source) Sulfamethoxazole Drug Allergy 5 [facility] (1 source) Trimethoprim Drug Allergy 5 [facility] Medications Current Medications Medication Drug Class(es) Dates Sig (Normalized) Sig (Original) alendronic acid 70 mg oral tablet (4 sources) Bisphosphonate take 70 mg by mouth every week ALENDRONATE SODIUM (FOSAMAX ORAL) Take 70 mg by mouth once each week. Active Comment on above: Take 70 mg by mouth once each week. ALL PURPOSE MULTIVITAMIN-MIN ORAL TAB (4 sources) Start: 12-15-2004 take 1 tablet by mouth once daily ALL PURPOSE MULTIVITAMIN-MIN ORAL TAB Take one(1) tablet daily. 0 12/15/2004 Active Comment on above: Take one(1) tablet d aily. ALPRAZolam 0.5 mg oral tablet (13 sources) Benzodiazepine Start: 05-25-2019 End: 07-26-2021 take 1 tablet by mouth three times daily as needed for anxiety Alprazolam 0.5 mg tablet Active 0.5 mg PO 3 TIMES DAILY NEEDED as needed for Anxiety May 25, 2019 1:00am Complies with drug therapy Comment on above: Take 0.5 mg by mouth three times daily as needed for Anxiety. amylase [id number] unt / lipase [id number] unt / protease [id number] unt delayed release oral capsule (5 sources) Start: 04-20-2024 End: 10-22-2024 Petvly-Qbxlqtkq-J mylase (Creon) 36,000-114,000- 180,000 unit capsule,delayed release(DR/EC) Active 3 NMA PO before meals 300 2 October 22, 2024 1:25pm administer 2-3 capsules with meals and 1-2 capsules with snacks. Max of 10 per day. Complies with drug therapy ascorbic acid 500 mg oral tablet (5 sources) Vitamin C Start: 01-03-2025 take 1 tablet by mouth once daily Ascorbic Acid (Vitamin C) 500 mg tablet Active 500 mg PO daily January 03, 2025 12:00am Complies with drug therapy Start: 01-10-2020 take 1 tablet by heidi th twice daily before mealtime ascorbic acid, vitamin C, (VITAMIN C) 500 mg tablet Take 1 tablet by mouth twice daily before meals. 01/10/2020 Active Comment on above: Take 1 tablet by heidi th twice daily before meals. Aspirin (20 sources) Platelet Aggregation Inhibitor, Nonsteroidal Anti-inflammatory Drug Start: 07-21-2020 aspirin 81 mg oral delayed release tablet Dose : 81 mg = 1 tab(s), Oral, qDay, # 30 tab(s), 0 Refill(s) Start Date: 07/21/20 Status: Ordered Start: 01-11-2020 aspirin 81 mg chewable tablet Take Aspirin 162 mg (2 tablets) daily until 01/16 when starting Plavix, then decrease Aspirin to 81 mg daily. 14 tablet 01/11/2020 Active Start: 02-24-2013 End: 07-06-2018 take 1 tablet by mouth once daily Aspirin 81 MG tablet,chewable Discontinued 81 mg PO DAILY@0800 February 24, 2013 1:00am July 06, 2018 10:58am Start: 08-12-2008 take 1 tablet by heidi th once daily Aspirin (Adult Aspirin Regimen) 81 mg tablet,delayed release (DR/EC) Active 81 mg PO DAILY May 25, 2019 1:00am Complies with drug therapy Comment on above: Take one(1) tablet d aily. Take Aspirin 162 mg (2 tablets) daily until 01/16 when starting Plavix, then decrease Aspirin to 81 mg daily. atorvastatin 80 mg oral tablet (20 sources) HMG-CoA Reductase Inhibitor Start: 2 take 1 tablet by mouth at bedtime Atorvastatin 80 mg tablet Active 80 mg PO AT BEDTIME May 24, 2022 1:00am Complies with drug therapy Start: 07-06-2018 End: 05-24-2022 take 4 tablets by mouth once daily Atorvastatin 20 mg tablet Discontinued 80 mg PO DAILY July 06, 2018 12:00am May 24, 2022 12:12pm Start: 07-06-2018 End: 05-24-2022 take 80 mg by mouth once daily Atorvastatin Discontinu ed 80 MG PO DAILY July 06, 2018 12:00am May 24, 2022 12:12pm Comment on above: Take 80 mg by mouth once daily. atropine sulfate 0.025 mg / diphenoxylate hydrochloride 2.5 mg oral tablet (6 sources) Anticholinergic, Cholinergic Muscarinic Antagonist, Antidiarrheal Start: 01-03-2025 Diphenoxylate-Atropin e 2.5-0.025 mg tablet Active 1 {tbl} PO THREE TIMES A DAY as needed for diarrhea January 03, 2025 12:00am Complies with drug therapy Start: 03-02-2024 End: 04-01-2024 Diphenoxylate-Atropine (Lomo til) 2.5-0.025 mg tablet Discontinued 1 {tbl} PO THREE TIMES A DAY as needed for diarrhea 90 30 0 March 02, 2024 1:00am March 31, 2024 1:00am April 01, 2024 1:11am Start: 12-29-2022 take 1 tablet by heidi th once as needed diphenoxylate-atropine (LOMOTIL) 2.5-0.025 mg per tablet Take 1 tablet by mouth as needed. 12/29/2022 Active Comment on above: Take 1 tablet by heidi th as needed. Calcium Carbonate / Ergocalciferol (4 sources) Provitamin D2 Compound Start: 9 calcium carbonate/vitamin d3(CALCIUM 500 WITH VITAMIN D 500 MG (1,250 MG)-200 UNIT TAB) Take one(1) tablet two(2) times daily. 0 08/12/2008 Active Comment on above: Take one(1) tablet t wo(2) times daily. calcium citrate 1040 mg oral tablet (2 sources) Start: 2 take 500 mg by mouth once daily Calcium Citrate Active 500 MG PO DAILY November 12, 2021 12:00am celecoxib 200 mg oral capsule (19 sources) Nonsteroidal Anti-inflammatory Drug Start: 5 take 1 capsule by mouth three times weekly Celecoxib (Celebrex) 200 mg capsule Active 200 mg PO 3 TIMES A WEEK January 03, 2025 2:43pm Complies with drug therapy Start: 11-15-2022 End: 01-03-2025 take 1 capsule by mouth every twenty-four hours Celecoxib (Celebrex) 200 mg capsule Discontinued 200 mg PO Q24H November 15, 2022 12:00am January 03, 2025 2:44pm Start: 11-15-2022 take 1 capsule by mo ut twice daily Celecoxib (Celebrex) 200 mg capsule Active 200 MG PO TWICE A DAY November 15, 2022 12:00am Start: 02-24-2013 End: 07-06-2018 take 1 capsule by mouth twice daily Celecoxib 200 MG capsule Discontinued 200 mg PO TWICE A DAY February 24, 2013 1:00am July 06, 2018 10:58am Comment on above: Take 200 mg by mouth twice daily. cholecalciferol 0.025 mg oral tablet (20 sources) Vitamin D Start: 11-13-19 take 1 tablet by mouth once daily Cholecalciferol (Vitamin D3) 25 mcg (1,000 unit) tablet Active 3000 U PO DAILY November 12, 2021 3:01pm Complies with drug therapy Start: 01-08-2020 End: 11-12-2021 take 2 tablets by mouth once daily Cholecalciferol (Vitamin D3) 1,000 UNIT tablet Discontinued 2000 U PO DAILY January 08, 2020 12:00am November 12, 2021 3:01pm Start: 01-08-2020 End: 11-12-2021 take 2000 [IU] by mouth once daily Cholecalciferol (Vitamin D3) Discontinued 2000 UNIT PO DAILY January 08, 2020 12:00am November 12, 2021 3:01pm take 1 capsule by [facility] once daily Cholecalciferol, Vitamin D3, 25 mcg (1,000 unit) cap Take 2,000 Units by mouth once daily. Active Comment on above: Take 2,000 Units by mouth once daily. ciprofloxacin 500 mg oral tablet (1 source) Quinolone Antimicrobial Start: 12-27-19 End: 01-10-20 take 1 tablet by mouth twice daily Ciprofloxacin Hcl 500 mg tablet Discontinued 500 mg PO TWICE A DAY 28 14 0 December 26, 2024 12:00am January 08, 2025 12:00am January 09, 2025 12:11am clopidogrel (9 sources) [id number] Platelet Inhibitor Start: 07-22-19 clopidogrel 75 mg tablet clopidogrel 75 mg tablet, 0 Refill(s), 79.7 Start Date: 07/21/20 Status: Ordered Start: 01-08-2020 End: 02-04-2021 take 1 tablet by mouth once daily Clopidogrel 75 MG tablet Discontinued 75 mg PO DAILY January 08, 2020 12:00am February 04, 2021 10:51am DULoxetine 30 mg delayed release oral capsule (20 sources) Serotonin and Norepinephrine Reuptake Inhibitor Start: 01-03-2025 take 3 capsules by mouth once daily Duloxetine 30 mg capsule,delayed release(DR/EC) Active 90 mg PO daily January 03, 2025 2:40pm Complies with drug therapy Start: 05-24-2022 End: 01-03-2025 take 1 capsule by mouth three times daily Duloxetine 30 mg capsule,delayed release(DR/EC) Discontinued 30 mg PO THREE TIMES A DAY May 24, 2022 1:00am January 03, 2025 2:44pm Start: 05-24-2022 take 90 mg by mouth once daily Duloxetine Active 90 MG PO DAILY May 24, 2022 1:00am Start: 10-14-2020 take 1 capsule by [facility] three times daily DULoxetine 30 mg oral delayed release capsule See Instructions, TAKE 1 CAPSULE THREE TIMES DAILY, # 270 cap(s), 3 Refill(s), Pharmacy: [facility], 166.8, cm, 07/21/20 10:32:00 EDT, Height, kg, 07/21/20 10:32:00 EDT, Dosing Weight Start Date: 10/14/20 Status: Ordered Start: 05-25-2019 End: 05-24-2022 Duloxetine 60 mg capsule,del ayed release(DR/EC) Discontinued 90 mg PO DAILY May 25, 2019 1:00am May 24, 2022 12:13pm Start: 05-25-2019 End: 05-24-2022 take 90 mg by mouth once daily Duloxetine Discontinued 90 MG PO DAILY May 25, 2019 1:00am May 24, 2022 12:13pm take 1 capsule by [facility] once daily DULoxetine (CYMBALTA) 30 mg capsule Take 30 mg by mouth once daily. Active Comment on above: Take 30 mg by mouth once daily. ferrous sulfate 325 mg oral tablet (4 sources) Start: 01-11-2020 take 1 tablet by mouth once daily ferrous sulfate 325 mg (65 mg iron) tablet Take 1 tablet by mouth once daily. 30 tablet 1 01/11/2020 Active Comment on above: Take 1 tablet by heidi th once daily. folic acid 0.8 mg oral tablet (20 sources) Start: 11-12-2021 take 2.4 mg by mouth once daily Folic Acid 800 mcg tablet Active 2.4 mg PO DAILY November 12, 2021 2:59pm Complies with drug therapy Start: 11-12-2021 take 2.4 mg by mouth once mickey y Folic Acid Active 2.4 MG PO DAILY November 12, 2021 2:59pm Start: 04-22-2020 folic acid qDa y, 0 Refill(s) Start Date: 04/22/20 Status: Ordered Start: 05-25-2019 End: 11-12-2021 take 1 mg by mouth once daily Folic Acid 800 mcg table t Discontinued 1 mg PO DAILY May 25, 2019 1:00am November 12, 2021 3:01pm Start: 05-25-2019 End: 11-12-2021 take 1 mg by mouth once daily Folic Acid Discontinued 1 MG PO DAILY May 25, 2019 1:00am November 12, 2021 3:01pm Start: 06-10-2017 take 1 tablet by heidi th once daily folic acid 1 mg tablet Take 1 tablet by mouth once daily. 90 tablet 1 06/10/2017 Active Start: 08-20-2014 End: 07-06-2018 take 2 tablets by mouth once daily Folic Acid 1 MG tablet Discontinued 2 mg PO DAILY@[id number] 20, 2014 12:00am July 06, 2018 10:58am Start: 08-20-2014 End: 07-06-2018 take 2 mg by mouth once daily Folic Acid Discontinued 2 MG PO DAILY@[id number] 20, 2014 12:00am July 06, 2018 10:58am Comment on above: Take 1 tablet by heidi th once daily. gabapentin 600 mg oral tablet (20 sources) Anti-epileptic Agent Start: 01-03-2025 take 1 tablet by mouth twice daily Gabapentin 600 mg tablet Active 600 mg PO TWICE A DAY January 03, 2025 2:40pm Complies with drug therapy Start: 11-12-2021 End: 01-03-2025 take 2 tablets by mouth three times daily Gabapentin 600 mg tablet Discontinued 1200 mg PO THREE TIMES A DAY November 12, 2021 12:00am January 03, 2025 2:44pm Start: 11-12-2021 take 1200 mg by mout h three times daily Gabapentin Active 1200 MG PO THREE TIMES A DAY November 12, 2021 12:00am Start: 05-13-2021 End: 08-11-2021 gabapentin 600 mg oral table t Dose : 1,200 mg = 2 tab(s), Oral, TID, X 90 day(s), # 540 tab(s), 0 Refill(s), 08/11/21 10:43:00 EDT, Pharmacy: [facility], Brachial neuritis of both upper extremities, 166, cm, 05/13/21 10:03:00 EST, Height, 84.2, kg, 05/13/21 10:0... Start Date: 05/13/21 Stop Date: 08/11/21 Status: Ordered Start: 07-06-2018 End: 11-12-2021 Gabapentin 100 mg capsule Discontinued 1200 mg PO THREE TIMES A DAY July 06, 2018 12:00am November 12, 2021 2:58pm Start: 07-06-2018 End: 11-12-2021 take 1200 mg by mouth three times daily Gabapentin Discontinued 1200 MG PO THREE TIMES A DAY July 06, 2018 12:00am November 12, 2021 2:58pm Comment on above: Take 1,200 mg by heidi th three times daily. hydroxychloroquine sulfate 200 mg oral tablet (20 sources) Antimalarial, Antirheumatic Agent Start: 2021 take 400 mg by mouth once daily Hydroxychloroquine Active 400 MG PO DAILY November 12, 2021 2:58pm Start: 01-08-2020 End: 11-12-2021 take 1 tablet by mouth twice daily Hydroxychloroquine 200 mg tablet Active 200 mg PO TWICE A DAY November 12, 2021 2:58pm Complies with drug therapy Comment on above: Take 200 mg by mouth twice daily. lisinopril 5 mg oral tablet (9 sources) Angiotensin Converting Enzyme Inhibitor Start: 02-07-2024 End: 08-30-2024 take 1 tablet by mouth twice daily Lisinopril 5 mg tablet Active 5 mg PO TWICE A DAY 180 August 30, 2024 4:08pm Complies with drug therapy Start: 11-19-2022 End: 02-07-2024 take 1 tablet by mouth once daily Lisinopril 5 mg tablet Discontinued 5 mg PO DAILY 90 November 19, 2022 12:00am February 07, 2024 1:37pm magnesium oxide 400 mg oral capsule (12 sources) Start: 11-12-2021 take 1 capsule by mouth once daily Magnesium Oxide 400 mg magnesium capsule Active 400 mg PO DAILY November 12, 2021 12:00am Complies with drug therapy Comment on above: Take by mouth once d aily. methotrexate 2.5 mg oral tablet (20 sources) Folate Analog Metabolic Inhibitor Start: 05-05-2023 take 4 tablets by mouth every week Methotrexate Sodium 2.5 mg tablet Active 10 mg PO EVERY WEEK May 05, 2023 3:28pm Complies with drug therapy Start: 05-05-2023 take 10 mg by mouth every week Methotrexate Sodium Active 10 MG PO EVERY WEEK May 05, 2023 3:28pm Start: 05-13-2021 methotrexate 2 .5 mg oral tablet Dose : 25 mg = 10 tab(s), Oral, qWeek, # 130 tab(s), 1 Refill(s), Pharmacy: [facility], 166, cm, 05/13/21 10:03:00 EST, Height, kg, 05/13/21 10:03:00 EST, Dosing Weight Start Date: 05/13/21 Status: Ordered Start: 05-25-2019 End: 05-05-2023 Methotrexate Sodium 2.5 mg t ablet Discontinued 25 mg PO EVERY WEEK November 12, 2022 11:27am May 05, 2023 3:31pm Start: 05-25-2019 End: 05-05-2023 take 25 mg by mouth every week Methotrexate Sodium Dis continued 25 MG PO EVERY WEEK November 12, 2022 11:27am May 05, 2023 3:31pm Start: 06-10-2017 take 8 tablets by mo [facility] every week methotrexate 2.5 mg tablet Take 8 tablets by mouth once each week. 96 tablet 1 06/10/2017 Active Start: 02-24-2013 End: 07-06-2018 take 5 tablets by mouth every week Methotrexate Sodium 2.5 MG tablet Discontinued 12.5 mg PO Q7D February 24, 2013 1:00am July 06, 2018 11:00am Start: 02-24-2013 End: 07-06-2018 take 12.5 mg by mouth every week Methotrexate Sodium Discontinued 12.5 MG PO Q7D February 24, 2013 1:00am July 06, 2018 11:00am Comment on above: Take 8 tablets by mo [facility] once each week. Take 2.5 mg by mouth one time a week. 10 tabs PO Weekly metoprolol tartrate 50 mg oral tablet (17 sources) beta-Adrenergic Chuy Start: 05-01-2020 take 1.5 tablets by mouth twice daily metoprolol tartrate, short acting, (LOPRESSOR) 50 mg tablet Take 1.5 tablets by mouth twice daily. 270 tablet 3 12/31/2020 Active Start: 01-08-2020 take 1 tablet by [facility] three times daily Metoprolol Tartrate 50 MG tablet Active 50 mg PO THREE TIMES A DAY January 08, 2020 12:00am Complies with drug therapy Comment on above: Take 1.5 tablets by mouth twice daily. metroNIDAZOLE 500 mg oral tablet (5 sources) Nitroimidazole Antimicrobial Start: 12-27-19 End: 01-10-20 take 1 tablet by mouth twice daily Metronidazole 500 mg tablet Discontinued 500 mg PO TWICE A DAY 28 14 0 December 26, 2024 12:00am January 08, 2025 12:00am January 09, 2025 12:11am Start: 08-27-2024 End: 09-01-2024 take 1 tablet by mouth twice daily Metronidazole 500 mg tablet Discontinued 500 mg PO TWICE A DAY 10 5 0 August 27, 2024 12:00am August 31, 2024 12:00am September 01, 2024 12:10am Start: 01-06-2024 End: 01-20-2024 take 1 tablet by mouth three times daily Metronidazole 500 mg tablet Discontinued 500 mg PO THREE TIMES A DAY 42 14 0 January 06, 2024 12:00am January 19, 2024 12:00am January 20, 2024 12:15am Multivitamin preparation (6 sources) Start: 11-12-2021 take 1 tablet by mouth once daily Multivitamin Active 1 TABLET PO DAILY November 12, 2021 12:00am nitroglycerin 0.4 mg sublingual tablet (2 sources) Nitrate Vasodilator Start: 08-30-2023 Nitroglycerin (Nitrostat) 0.4 mg tablet, sublingual Active 0.4 mg SL every 5 to 15 minutes as needed for chest pain 25 August 30, 2023 12:00am do not exceed 3 doses per episode Complies with drug therapy ondansetron 4 mg oral tablet (10 sources) Serotonin-3 Receptor Antagonist Start: 01-06-2024 take 1 tablet by mouth every six hours as needed for nausea and vomiting Ondansetron Hcl 4 mg tablet Active 4 mg PO EVERY 6 HOURS as needed for nausea and vomiting 120 2 January 06, 2024 12:00am Complies with drug therapy Start: 08-04-2023 End: 09-03-2023 take 1 tablet by mouth every eight hours Ondansetron Hcl 4 mg tablet Discontinued 4 mg PO Q8H 90 30 0 August 04, 2023 2:34pm September 02, 2023 12:00am September 03, 2023 12:12am Start: 02-15-2023 End: 03-17-2023 take 1 tablet by mouth every eight hours Ondansetron Hcl 4 mg tablet Discontinued 4 mg PO Q8H 90 30 0 February 15, 2023 1:00am March 16, 2023 1:00am March 17, 2023 1:04am Start: 12-29-2022 ondansetron or ally disintegrating (ZOFRAN ODT) 4 mg disintegrating tablet Take 1 tablet by mouth as needed. 12/29/2022 Active Comment on above: Take 1 tablet by heidi as needed. pantoprazole 40 mg delayed release oral tablet (13 sources) Proton Pump Inhibitor Start: 3 take 1 tablet by mouth once daily Pantoprazole 40 MG tablet Active 40 mg PO DAILY February 24, 2013 1:00am Complies with drug therapy take 1 tablet by mouth once mickey y pantoprazole DR (PROTONIX) 20 mg tablet Take 20 mg by mouth once daily. Active Comment on above: Take 20 mg by mouth once daily. predniSONE 10 mg oral tablet (4 sources) Start: 09-12-2022 predniSONE (DELTASONE) 10 mg tablet Take 4 tabs daily for 3 days, then 2 tabs daily for 3 days, then 1 tab daily for 3 days with food. 21 tablet 09/12/2022 Active Comment on above: Take 4 tabs daily fo r 3 days, then 2 tabs daily for 3 days, then 1 tab daily for 3 days with food. pyridoxine hydrochloride 25 mg oral tablet (8 sources) Start: 05-25-2019 take 1 tablet by mouth once daily Pyridoxine (Vitamin B6) 25 mg tablet Active 25 mg PO DAILY May 25, 2019 1:00am Complies with drug therapy traMADol hydrochloride 50 mg oral tablet (20 sources) Opioid Agonist Start: 11-12-2022 take 50 mg by mouth three times daily Tramadol Active 50 MG PO THREE TIMES A DAY 15 November 12, 2022 12:00am Start: 08-13-2020 End: 02-04-2021 take 50-100 mg by mouth every eight hours as needed for pain Tramadol 50 mg tablet Discontinued 50 - 100 mg PO Q8H as needed for pain 40 0 October 01, 2020 12:00am February 04, 2021 10:52am vitamin b12 0.5 mg oral lozenge (20 sources) Vitamin B12 Start: 11-12-2021 take 1000 ug by mouth once daily Cyanocobalamin (Vitamin B-12) 500 mcg lozenge Active 1000 ug PO DAILY November 12, 2021 3:01pm Complies with drug therapy Start: 11-12-2021 take 1000 ug by mout h once daily Cyanocobalamin (Vitamin B-12) Active 1000 MCG PO DAILY November 12, 2021 3:01pm Start: 01-08-2020 End: 11-12-2021 take 500 ug by mouth once daily Cyanocobalamin (Vitamin B-12) 500 MCG lozenge Discontinued 500 ug PO DAILY January 08, 2020 12:00am November 12, 2021 3:01pm Start: 01-15-2019 Vitamin B12 50 0 mcg oral tablet Dose : 500 mcg = 1 tab(s), Oral, Daily, 0 Refill(s) Start Date: 01/15/19 Status: Ordered Comment on above: Take by mouth once d aily. vitamin b6 100 mg oral tablet (4 sources) pyridoxine, vitamin B6, (VITAMIN B-6) 100 mg tablet Take 25 mg by mouth once daily. Active Comment on above: Take 25 mg by mouth once daily. Vitamin B6 25 mg oral tablet (1 source) Start: 01-15-2019 Vitamin B6 25 mg oral tablet Dose : 25 mg = 1 tab(s), Oral, qDay, 0 Refill(s) Start Date: 01/15/19 Status: Ordered Vitamin D3 (1 source) Start: 01-15-2019 Vitamin D3 Dose : 400 unit(s) = 1 tab(s), Oral, Daily, 0 Refill(s) Start Date: 01/15/19 Status: Ordered zinc gluconate 100 mg oral tablet (2 sources) Start: 12-19-2023 take 2 tablets by mouth once daily zolpidem tartrate 10 mg oral tablet (20 sources) gamma-Aminobutyric Acid-ergic Agonist Start: 11-12-2021 take 1 tablet by mouth at bedtime Zolpidem (Ambien) 10 mg tablet Active 10 mg PO AT BEDTIME November 12, 2021 12:00am Complies with drug therapy Start: 04-16-2021 End: 07-15-2021 zolpidem 10 mg oral tablet D ose : 10 mg = 1 tab(s), Oral, qHS, # 30 tab(s), 2 Refill(s), Pharmacy: [id number], Persistent insomnia, 166, cm, 02/11/21 9:54:00 EDT, Height, 78.3, kg, 02/11/21 9:54:00 EDT, Dosing Weight Start Date: 04/16/21 Stop Date: 07/15/21 Status: Ordered Start: 05-25-2019 End: 08-13-2020 take 1 tablet by mouth at bedtime as needed Zolpidem (Ambien) 10 mg tablet Discontinued 10 mg PO AT BEDTIME NEEDED as needed for Insomnia May 25, 2019 1:00am August 13, 2020 2:42pm Comment on above: Take by mouth at bed time as needed. Completed/Discontinued Medications Medication Drug Class(es) Dates Sig (Normalized) Sig (Original) acebutolol 200 mg oral capsule (8 sources) beta-Adrenergic Chuy Start: 02-24-2013 End: 05-26-2017 take 1 capsule by mouth twice daily Acebutolol 200 MG capsule Discontinued 400 mg PO TWICE A DAY February 24, 2013 1:00am May 26, 2017 12:16pm Start: 02-24-2013 End: 05-26-2017 take 400 mg by mouth twice daily Acebutolol Discontinued 400 MG PO TWICE A DAY February 24, 2013 1:00am May 26, 2017 12:16pm acetaminophen 500 mg oral tablet (12 sources) Start: 01-08-2020 End: 08-13-2020 take 1000 mg by mouth every six hours as needed Acetaminophen Discontinued 1000 MG PO EVERY 6 HOURS NEEDED January 08, 2020 12:00am August 13, 2020 2:42pm Start: 12-31-2019 End: 08-13-2020 take 2 tablets by mouth every six hours as needed for pain Acetaminophen 500 MG tablet Discontinued 1000 mg PO EVERY 6 HOURS NEEDED as needed for pain/fever January 08, 2020 12:00am August 13, 2020 2:42pm Comment on above: Take 2 tablets by mo ut every 6 hours as needed for Pain. acetaminophen 325 mg / HYDROcodone bitartrate 5 mg oral tablet (8 sources) Opioid Agonist Start: 08-07-2020 End: 02-04-2021 Hydrocodone-Acetaminophe n 5-325 mg tablet Discontinued 1 {tbl} PO AT BEDTIME as needed for pain 10 3 0 August 07, 2020 February 04, 2021 10:51am Fracture of patella Start: 08-07-2020 End: 02-04-2021 take 1 tablet by mouth at bedtime Hydrocodone-Acetaminophen Discontinued 1 TABLET PO AT BEDTIME 10 3 August 07, 2020 February 04, 2021 10:51am acetaminophen 325 mg / oxyCODONE hydrochloride 5 mg oral tablet (20 sources) Opioid Agonist Start: 11-07-2022 End: 11-15-2022 Oxycodone-Acetaminophen (Percocet) 5-325 mg tablet Discontinued 1 {tbl} PO EVERY 6 HOURS as needed for pain 24 6 0 November 09, 2022 November 14, 2022 12:00am November 15, 2022 12:03am Fracture of wrist Start: 08-27-2014 End: 07-06-2018 Oxycodone-Acetaminophen 1 TA BLET tablet Discontinued 1 - 2 {tbl} PO EVERY 4 HOURS NEEDED as needed for Pain August 27, 2014 12:00am July 06, 2018 11:00am Start: 08-27-2014 End: 07-06-2018 take 1 tablet by mouth every four hours as needed Oxycodone-Acetaminophen Discontinued 1 - 2 TABLET PO EVERY 4 HOURS NEEDED August 27, 2014 12:00am July 06, 2018 11:00am 24 hr budesonide 9 mg extended release oral tablet (2 sources) Corticosteroid Start: 01-06-2024 End: 01-03-2025 take 1 tablet by mouth once daily Budesonide 9 mg tablet,delayed and ext.release Discontinued 9 mg PO daily 30 2 January 06, 2024 12:00am January 03, 2025 2:43pm calcium carbonate 1250 mg oral tablet (8 sources) Start: 05-25-2019 End: 11-12-2021 take 1 tablet by mouth twice daily Calcium Carbonate (Calcium 500) 500 mg calcium (1,250 mg) tablet Discontinued 500 mg PO TWICE A DAY May 25, 2019 1:00am November 12, 2021 3:00pm dicyclomine hydrochloride 20 mg oral tablet (9 sources) Anticholinergic Start: 08-01-2023 End: 10-31-2024 take 1 tablet by mouth four times daily as needed Dicyclomine 20 mg tablet Discontinued 20 mg PO 4 TIMES DAILY as needed for cramps 120 0 December 16, 2023 2:35pm April 20, 2024 11:09am docusate sodium 100 mg oral capsule (8 sources) Start: 08-27-2014 End: 07-06-2018 take 1 capsule by mouth twice daily as needed for constipation Docusate Sodium 100 MG capsule Discontinued 100 mg PO TWICE DAILY NEEDED as needed for Constipation 10 0 August 27, 2014 12:00am July 06, 2018 10:58am doxycycline hyclate 100 mg oral capsule (2 sources) Tetracycline-class Drug Start: 07-05-2023 End: 12-19-2023 take 1 capsule by mouth twice daily Doxycycline Hyclate 100 mg capsule Discontinued 100 mg PO TWICE A DAY 60 0 July 05, 2023 12:00am December 19, 2023 9:31am 1 ml etanercept 50 mg/ml prefilled syringe (8 sources) Tumor Necrosis Factor Chuy Start: 08-20-2014 End: 07-06-2018 inject 50 mg by subcutaneous injection every week Etanercept 50 MG/ML syringe Discontinued 50 mg SQ Q7D August 20, 2014 12:00am July 06, 2018 10:58am Start: 08-20-2014 End: 07-06-2018 inject 50 mg by subcutaneous injection every week Etanercept Discontinued 50 MG SQ Q7D August 20, 2014 12:00am July 06, 2018 10:58am Magnesium (9 sources) Start: 05-25-2019 End: 11-12-2021 Magnesium 250 mg tablet Disc ontinued 400 mg PO DAILY May 25, 2019 1:00am November 12, 2021 3:00pm Start: 05-25-2019 End: 11-12-2021 take 400 mg by mouth once daily Magnesium Discontinued 400 MG PO DAILY May 25, 2019 1:00am November 12, 2021 3:00pm Start: 01-15-2019 Magnesium 250 mg tablet Dose : 250 mg = 1 tab(s), Oral, qDay, 0 Refill(s) Start Date: 01/15/19 Status: Ordered Multivitamin tablet (2 sources) Start: 11-12-2021 End: 01-03-2025 Multivitamin tablet Disconti nued 1 {tbl} PO DAILY November 12, 2021 12:00am January 03, 2025 2:44pm Start: 11-12-2021 Multivitamin t ablet Active 1 {tbl} PO DAILY November 12, 2021 12:00am Multivitamin With Minerals (6 sources) Start: 01-08-2020 End: 02-04-2021 Multivitamin With Minerals Discontinued 1 EACH PO DAILY January 08, 2020 12:00am February 04, 2021 10:52am Multivitamin With Minerals 1 EACH tablet (2 sources) Start: 01-08-2020 End: 02-04-2021 take 1 tablet by mouth once daily Multivitamin With Minerals 1 EACH tablet Discontinued 1 NMA PO DAILY January 08, 2020 12:00am February 04, 2021 10:52am polyethylene glycol 3350 40200 mg powder for oral solution (8 sources) Osmotic Laxative Start: 01-08-2020 End: 08-13-2020 take 17 g by mouth once daily as needed for constipation Polyethylene Glycol 3350 17 GM powder in packet Discontinued 17 g PO DAILY NEEDED as needed for Constipation January 08, 2020 12:00am August 13, 2020 2:42pm rifAXIMin 550 mg oral tablet (2 sources) Rifamycin Antibacterial Start: 08-04-2023 End: 08-18-2023 take 1 tablet by mouth three times daily Rifaximin (Xifaxan) 550 mg tablet Discontinued 550 mg PO THREE TIMES A DAY 42 14 0 August 04, 2023 12:00am August 17, 2023 12:00am August 18, 2023 12:06am Problems Active Problems Problem Classification Problem Date Documented Da te Episodic/Chronic Abdominal pain (1 source) Right lower quadrant pain; Translations: [Right lower quadrant pain] 01-10-2023 Episodic Anxiety disorders (1 source) Chronic anxiety 11-06-2018 Chronic Cardiac dysrhythmias (20 sources) Ventricular premature beats; Translations: [Ventricular premature depolarization] Chronic Coronary atherosclerosis and other heart disease (20 sources) Coronary arteriosclerosis; Translations: [Atherosclerotic heart disease of [place] coronary artery without angina pectoris] Onset: 0 Resolved: 0 01-21-2020 Chronic Coronary atherosclerosis and other heart disease (8 sources) Presence of aortocoronary bypass graft; Translations: [Aortocoronary bypass status] Onset: 0 Episodic Deficiency and other anemia (1 source) Iron deficiency anemia 02-11-2021 Episodic Deficiency and other anemia (4 sources) Anemia; Translations: [Anemia, unspecified] 08-12-2008 Episodic Disorders of lipid metabolism (15 sources) Mixed hyperlipidemia; Translations: [Hyperlipidemia] 05-14-2019 Chronic Comment on above: The patient reports that she is past due for lipids and liver function testing. She is tolerating her intensive statin therapy. Diverticulosis and diverticulitis (8 sources) Diverticulosis of colon without diverticulitis; Translations: [Diverticulosis of large intestine without perforation or abscess without bleeding] 05-25-2019 Chronic Esophageal disorders (9 sources) Gastroesophageal reflux disease; Translations: [Gastro-esophageal reflux disease without esophagitis] 11-16-2018 Chronic Essential hypertension (17 sources) Benign essential hypertension; Translations: [Benign hypertension] 11-16-2018 Chronic Comment on above: Blood pressure is ad equately controlled on her current medical therapy Fever of unknown origin (8 sources) Fever; Translations: [Fever, unspecified] 01-10-2020 Episodic Fracture of lower limb (16 sources) Fracture of patella; Translations: [Unspecified fracture of unspecified patella, initial encounter for closed fracture] 09-03-2020 Episodic Fracture of upper limb (20 sources) Fracture at wrist and/or hand level; Translations: [Fracture of unspecified carpal bone, unspecified wrist, initial encounter for closed fracture] 11-07-2022 Episodic Intracranial injury (8 sources) Concussion with no loss of consciousness; Translations: [Concussion without loss of consciousness, initial encounter] 08-08-2020 Episodic Mood disorders (4 sources) Dysthymia; Translations: [Dysthymic disorder] 08-12-2008 Chronic Noninfectious gastroenteritis (8 sources) Gastroenteritis; Translations: [Noninfective gastroenteritis and colitis, unspecified] 11-11-2021 Episodic Nonspecific chest pain (20 sources) Left sided chest pain; Translations: [Chest pain, unspecified] Onset: 4 02-07-2020 Episodic Nutritional deficiencies (1 source) Vitamin D deficiency 02-11-2021 Chronic Nutritional deficiencies (1 source) Cobalamin deficiency 02-11-2021 Episodic Occlusion or stenosis of precerebral arteries (16 sources) Carotid artery stenosis; Translations: [Occlusion and stenosis of unspecified carotid artery] Onset: 0 Chronic Osteoarthritis (20 sources) Osteoarthritis of joint of left shoulder region; Translations: [Arthritis of shoulder region joint] 05-13-2021 Chronic Other bone disease and musculoskeletal deformities (1 source) Osteopenia 11-16-2018 Episodic Other bone disease and musculoskeletal deformities (1 source) Other specified disorders of bone density and structure, multiple sites; Translations: [Other specified disorders of bone density and structure, multiple sites] Onset: 5 Episodic Other circulatory disease (8 sources) H/O: heart disorder; Translations: [Personal history of other diseases of the circulatory system] 02-07-2020 Episodic Other circulatory disease (1 source) Elevated blood-pressure reading, without diagnosis of hypertension; Translations: [Elevated blood pressure reading] Onset: 4 Episodic Other connective tissue disease (2 sources) History of total knee arthroplasty; Translations: [Presence of left artificial knee joint] 08-10-2023 Chronic Other connective tissue disease (8 sources) Pain in lower limb; Translations: [Pain in leg, unspecified] 01-10-2020 Episodic Other gastrointestinal disorders (1 source) Irritable bowel syndrome 11-16-2018 Chronic Other gastrointestinal disorders (4 sources) Diarrhea; Translations: [Diarrhea, unspecified] 01-21-2023 Episodic Other gastrointestinal disorders (2 sources) Small bowel bacterial overgrowth syndrome; Translations: [Small intestinal bacterial overgrowth (SIBO)] 12-19-2023 Episodic Other hematologic conditions (8 sources) Raised cardiac enzyme or marker; Translations: [Other specified abnormalities of plasma proteins] 01-10-2020 Episodic Other injuries and conditions due to external causes (8 sources) Systemic inflammatory response syndrome; Translations: [Systemic inflammatory response syndrome (SIRS) of non-infectious origin without acute organ dysfunction] 01-10-2020 Episodic Other nervous system disorders (1 source) Other chronic pain; Translations: [Chronic chest pain] Onset: 4 Chronic Other non-traumatic joint disorders (1 source) Shoulder pain; Translations: [Pain in left shoulder] Episodic Other non-traumatic joint disorders (7 sources) Pain in left shoulder; Translations: [Left shoulder pain] 02-04-2021 Episodic Other non-traumatic joint disorders (2 sources) Pain in left knee; Translations: [Left knee pain] 08-10-2023 Episodic Other nutritional; endocrine; and metabolic disorders (4 sources) Obese class I; Translations: [Obesity, unspecified] Onset: 0 12-31-2019 Chronic Other screening for suspected conditions (not mental disorders or infectious disease) (2 sources) Abnormal electrocardiogram [ECG] [EKG]; Translations: [Encounter for screening for osteoporosis] Onset: 4 Episodic Other upper respiratory infections (2 sources) Upper respiratory infection; Translations: [Acute upper respiratory infection, unspecified] Onset: 4 Episodic Residual codes; unclassified (1 source) Persistent insomnia 11-06-2018 Chronic Residual codes; unclassified (8 sources) Obstructive sleep apnea syndrome; Translations: [Obstructive sleep apnea (adult) (pediatric)] 02-25-2020 Chronic Comment on above: Overall AHI 8.7, sta rting AutoPap 5 to 15 cm of water Rheumatoid arthritis and related disease (5 sources) Rheumatoid arteritis; 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] Onset: 7 11-16-2018 Chronic Screening and history of mental health and substance abuse codes (8 sources) H/O: depression; Translations: [Personal history of other mental and behavioral disorders] 11-11-2021 Episodic Spondylosis; intervertebral disc disorders; other back problems (1 source) Degeneration of cervical intervertebral disc 11-16-2018 Chronic Spondylosis; intervertebral disc disorders; other back problems (5 sources) Brachial neuritis; Translations: [Low back pain] 02-27-2020 Episodic Superficial injury; contusion (8 sources) Hematoma of lower limb; Translations: [Contusion of unspecified lower leg, initial encounter] 01-10-2020 Episodic Unclassified (1 source) Patient encounter status 04-22-2020 Past or Other Problems Problem Classification Problem Date Documented Da te Episodic/Chronic Other gastrointestinal disorders (2 sources) Diarrhea, unspecified; Translations: [Diarrhea] Onset: 09-13-2024 01-21-2023 Episodic Other non-traumatic joint disorders (4 sources) Pain in right knee; Translations: [Pain in joint, lower leg] Onset: 01-10-2020 01-10-2020 Episodic Other non-traumatic joint disorders (1 source) Pain in right hip; Translations: [Pain in right hip] Onset: 08-31-2024 Episodic Pancreatic disorders (not diabetes) (4 sources) Exocrine pancreatic insufficiency; Translations: [Exocrine pancreatic insufficiency] Onset: 09-13-2024 12-19-2023 Episodic Sprains and strains (2 sources) Sprain of foot; Translations: [Unspecified sprain of unspecified foot, initial encounter] Onset: 08-26-2008 Resolved: 01-10-2020 01-10-2020 Episodic Unclassified (8 sources) anterior neck fusion 10-28-2021 Unclassified (8 sources) history of posterior neck fusion 10-28-2021 Unclassified (8 sources) history of right knee tumor 10-28-2021 Unclassified (8 sources) neck posterior and anterior repair 10-28-2021 Unclassified (8 sources) neck/back pain 10-28-2021 Results Test Name Value Interpretation Reference Range Facility 36on 02-19-2025 36 Called patient made apt Normal [facility] Cardiology Visit Reporton Cardiology Visit Report [facility] [place] [address] OFFICE VISIT Date of Service: 01/03/25 MR#: [id number] Acct: [id number] Name: NADIRA BENÍTEZ Rep #: [id number] : 1955 Provider: REY self Age/Sex: 69/F Location: [facility] Status: Signed HPI HPI History of Present Illness Details: Nadira Benítez is a 69-year-old white female with a history of underlying CAD status post CABG, cardiac ectopy with PACs/PVCs, hyperlipidemia, and hypertension. She underwent [facility] diagnostic cardiac catheterization on 12-25-2019. Per the report the left main coronary was normal, the LAD had proximal 99% stenosis, the LCx had distal 90% stenosis, the RCA had mild diffuse disease. She subsequently underwent CABG on 12-27-2019 at [facility]. This included a VERNON to the LAD, and SVG to the diagonal branch, and an SVG to the distal LCx. The patient had been evaluated here in our office August 30, 2023. At that time she was complaining of some chest discomfort and she underwent a Lexiscan Cardiolite stress test November 29, 2023 which showed no evidence of scar or ischemia and an estimated ejection fraction of 70%. The patient reports now that she is back into a little bit better aerobic exercise program and with walking in the swimming pools in [place] that her symptoms have improved. She does report that she gets occasional sharp or dull or even pressure type sensations that are reproducible with palpation the last 10 to 30 seconds at a time. The patient reports that she can walk 2 miles without any chest discomfort. She is stiff from her arthritis in her hips. She continues with weekly, sharp and dull chest discomfort. This is located at rest and during mild activity such as doing dishes. This located midsternal left side of her chest. This is considered to be brief. This is unchanged from previous. She acknowledges palpitations she describes as pounding. She denies bilateral lower extremity more claudication. She acknowledges occasional, dry cough. She denies shortness with activity, shortness of breath at rest, orthopnea, or PND. She denies lightheadedness, dizziness, near syncope, syncope. She acknowledges fatigue and weakness. Intake Vital Signs 12/19/23 09:28 01/03/25 14:48 Height 5 ft 4 in 5 ft 4 in Weight: 196 lb BMI 33.6 BP 123/89 H Blood Pressure Location Lt brachial Position Sitting Respiration 16 Pulse 63 Pulse Source NIBP Pulse Oximetry (%) 97 Oxygen Delivery Method room air Intake Visit Reasons: 1 Y FU Sas Programmer Required: No Accompanied by: Self Is patient in pain?: Yes (right hip) Pain scale (1-10): 3 Allergies sulfamethoxazole (From Bactrim) Allergy (Verified 01/03/25 14:37) Rash trimethoprim (From Bactrim) Allergy (Verified 01/03/25 14:37) Rash Medications ???Medication ???Instructions ???Recorded ???Confirmed ???Type pantoprazole 40 mg tablet,delayed 40 mg PO DAILY 02/24/13 01/03/25 History release alprazolam 0.5 mg tablet 0.5 mg PO TID PRN PRN Anxiety 05/1201/03/25 History aspirin 81 mg tablet,delayed 81 mg PO DAILY 05/25/19 01/03/25 H istory release (Adult Aspirin Regimen) pyridoxine (vitamin B6) 25 mg 25 mg PO DAILY 05/25/19 01/03/25 H istory tablet metoprolol tartrate 50 mg tablet 50 mg PO TID 01/08/20 01/03/25 His tory cholecalciferol (vitamin D3) 25 3,000 unit PO DAILY 11/12/2101/03 History mcg (1,000 unit) tablet cyanocobalamin (vitamin B-12) 500 1,000 mcg PO DAILY 11/12/2101/03 History mcg lozenges folic acid 800 mcg tablet 2.4 mg PO DAILY 11/12/21 01/03/25 History hydroxychloroquine 200 mg tablet 200 mg PO BID 11/12/21 01/03/25 Hi story magnesium oxide 400 mg PO DAILY 11/12/21 01/03/25 History zolpidem 10 mg tablet (Ambien) 10 mg PO QHS 11/12/21 01/03/25 His tory atorvastatin 80 mg tablet 80 mg PO QHS 05/24/22 01/03/25 His tory methotrexate sodium 2.5 mg tablet 10 mg PO QWEEK 05/05/23 01/03/25 History nitroglycerin 0.4 mg sublingual 0.4 mg sublingual Q5-15M PRN chest 08/30/23 01/03/25 Rx tablet (Nitrostat) pain #25 tabs zinc gluconate 100 mg tablet 200 mg PO QDAY 12/19/23 08/27/24 H istory ondansetron HCl 4 mg tablet 4 mg PO Q6H PRN nausea and 4 01/03/25 Rx vomiting #120 tabs lisinopril 5 mg tablet 5 mg PO BID #180 tabs 05/22/25 09/ 25/25 Rx [id number] 3 cap PO QAC #300 caps 10/22/24 Rx 36,000-114,000-180,000 unit capsule,delay rel (Creon) dicyclomine 20 mg tablet 20 mg PO 4X/DAY PRN cramps #120 01/03/25 Rx tabs ciprofloxacin HCl 500 mg tablet 500 mg PO BID 2 weeks #28 tabs 01/03/25 Rx metronidazole 500 mg tablet 500 mg PO BID 2 weeks #28 tabs Rx ascorbic acid (vitamin C) 500 mg 500 mg (more content not included)... Normal [facility] .GFRon 12-12-2024 Estimated Glomerular Filtration Rate 98 ml/min/1.73sqm [facility] MAIN Comment on above: Result Comment: Stages of Chronic Kidney Disease (CKD) Stage Description eGFR(ml/min/1.73 sq.m.) CKD 1 Normal kidney function or >=90 normal kindney function with possible kidney damage (ex. Proteinuria) CKD 2 Kidney damage with mild loss 60-89 of kidney function CKD 3a Mild to moderate loss of kidney 45-59 function CKD 3b Moderate to severe loss of 30-44 of kindey function CKD 4 Severe loss of kidney function 15-29 CKD 5 Kidney failure <15 Note: (go live 2024) the eGFR calculation was updated to the 2020 CKD-EPI creatinine equation without a race factor to calculate the eGFR results. Performed By: #### M ORPH, CBC, GFR, VIDH, DIFF, CMP, LIPID, B12 #### [address] [address] .Manual Diffon 12-12-2024 Basophil %, Manual 1.0 % Normal 0.0-2.5 [facility] Comment on above: Performed By: #### M ORPH, CBC, GFR, VIDH, DIFF, CMP, LIPID, B12 #### [facility] [address] [place] [id number] Basophil, Abs Manual 0.1 10 3/mcL Normal 0.0-0.3 [facility] Comment on above: Performed By: #### M ORPH, CBC, GFR, VIDH, DIFF, CMP, LIPID, B12 #### [address] [address] Eosinophil %, Manual 0.0 % Normal 0.0-6.0 [facility] Comment on above: Performed By: #### M ORPH, CBC, GFR, VIDH, DIFF, CMP, LIPID, B12 #### [address] [address] Eosinophil, Abs Manual 0.0 10 3/mcL Normal 0.0-0.7 [facility] Comment on above: Performed By: #### M ORPH, CBC, GFR, VIDH, DIFF, CMP, LIPID, B12 #### [address] [address] Lymphocyte %, Manual 46.0 % High 20.0-40.0 [facility] Comment on above: Performed By: #### M ORPH, CBC, GFR, VIDH, DIFF, CMP, LIPID, B12 #### [address] [address] Lymphocyte, Abs Manual 4.5 10 3/mcL High 0.9-4.3 [facility] Comment on above: Performed By: #### M ORPH, CBC, GFR, VIDH, DIFF, CMP, LIPID, B12 #### [address] [address] Monocyte %, Manual 4.0 % Normal 2.0-13.0 [facility] Comment on above: Performed By: #### M ORPH, CBC, GFR, VIDH, DIFF, CMP, LIPID, B12 #### [address] [address] Monocyte, Abs Manual 0.4 10 3/mcL Normal 0.1-1.4 [facility] Comment on above: Performed By: #### M ORPH, CBC, GFR, VIDH, DIFF, CMP, LIPID, B12 #### [address] [address] Neutrophil %, Manual 49.0 % Low 50.0-75.0 [facility] Comment on above: Performed By: #### M ORPH, CBC, GFR, VIDH, DIFF, CMP, LIPID, B12 #### [place] [address] Neutrophil, Abs Manual 4.7 10 3/mcL Normal 2.3-8.1 [facility] Comment on above: Performed By: #### M ORPH, CBC, GFR, VIDH, DIFF, CMP, LIPID, B12 #### [place] [address] Nucleated RBC 0.0 /100 WBC Normal [facility] Comment on above: Performed By: #### M ORPH, CBC, GFR, VIDH, DIFF, CMP, LIPID, B12 #### [place] [address] .Morphon 12-12-2024 Anisocytosis Ql (Bld) 1+ Normal [facility] Comment on above: Performed By: #### M ORPH, CBC, GFR, VIDH, DIFF, CMP, LIPID, B12 #### [place] [address] Platelet Estimate Normal Normal [facility] Comment on above: Performed By: #### M ORPH, CBC, GFR, VIDH, DIFF, CMP, LIPID, B12 #### [place] [address] B12on 12-12-2024 Cobalamin (Vitamin B12) [Mass/Vol] 404 pg/mL Normal 211-911 [facility] Comment on above: Performed By: #### M ORPH, CBC, GFR, VIDH, DIFF, CMP, LIPID, B12 #### [place] [address] CBCon 12-12-2024 Erythrocyte distribution width (RBC) [Ratio] 14.4 % Normal 11.5-15.5 [facility] Comment on above: Performed By: #### M ORPH, CBC, GFR, VIDH, DIFF, CMP, LIPID, B12 #### [place] [address] Hematocrit (Bld) [Volume fraction] 35.2 % Normal 34.0-46.0 [facility] Comment on above: Performed By: #### M ORPH, CBC, GFR, VIDH, DIFF, CMP, LIPID, B12 #### [place] [address] Hgb 12.4 G/dL Normal 12.0-16.0 [facility] Comment on above: Performed By: #### M ORPH, CBC, GFR, VIDH, DIFF, CMP, LIPID, B12 #### [place] [address] MCH (RBC) [Entitic mass] 29.8 pg Normal 27.0-33.0 [facility] Comment on above: Performed By: #### M ORPH, CBC, GFR, VIDH, DIFF, CMP, LIPID, B12 #### [place] [address] MCHC 35.3 G/dL Normal 32.0-36.0 [facility] Comment on above: Performed By: #### M ORPH, CBC, GFR, VIDH, DIFF, CMP, LIPID, B12 #### [place] [address] MCV (RBC) [Entitic vol] 84.3 fL Normal 80.0-99.0 [facility] Comment on above: Performed By: #### M ORPH, CBC, GFR, VIDH, DIFF, CMP, LIPID, B12 #### [place] [address] Platelet 198 10 3/mcL Normal 150-450 [facility] Comment on above: Performed By: #### M ORPH, CBC, GFR, VIDH, DIFF, CMP, LIPID, B12 #### [place] [address] Platelet mean volume (Bld) [Entitic vol] 7.3 fL Normal 6.6-10.5 [facility] Comment on above: Performed By: #### M ORPH, CBC, GFR, VIDH, DIFF, CMP, LIPID, B12 #### [place] [address] RBC 4.18 10 6/mcL Normal 4.10-5.30 [facility] Comment on above: Performed By: #### M ORPH, CBC, GFR, VIDH, DIFF, CMP, LIPID, B12 #### [place] [address] WBC 9.7 10 3/mcL Normal 4.5-10.8 [facility] Comment on above: Performed By: #### M ORPH, CBC, GFR, VIDH, DIFF, CMP, LIPID, B12 #### [address] [address] CMPon 12-12-2024 Albumin Level 4.0 G/dL Normal 3.2-4.8 [facility] Comment on above: Performed By: #### M ORPH, CBC, GFR, VIDH, DIFF, CMP, LIPID, B12 #### [place] [address] Albumin/Globulin [Mass ratio] 1.8 {ratio} High 0.9-1.6 [facility] Comment on above: Performed By: #### M ORPH, CBC, GFR, VIDH, DIFF, CMP, LIPID, B12 #### [place] [address] ALP [Catalytic activity/Vol] 80 U/L Normal 38-126 [facility] Comment on above: Performed By: #### M ORPH, CBC, GFR, VIDH, DIFF, CMP, LIPID, B12 #### [place] [id number] ALT [Catalytic activity/Vol] 16 U/L Normal 10-49 [facility] Comment on above: Performed By: #### M ORPH, CBC, GFR, VIDH, DIFF, CMP, LIPID, B12 #### [place] [id number] AST [Catalytic activity/Vol] 21 U/L Normal 8-34 [facility] Comment on above: Performed By: #### M ORPH, CBC, GFR, VIDH, DIFF, CMP, LIPID, B12 #### [place] [address] Bili Total 1.20 mg/dL Normal 0.20-1.20 [facility] Comment on above: Result Comment: Use of this assay is not recommended for patients undergoing treatment with eltrombopag due to the potential for falsely elevated results. Performed By: #### M ORPH, CBC, GFR, VIDH, DIFF, CMP, LIPID, B12 #### [place] [address] BUN/Creatinine Ratio 10.5 ratio Normal 10.0-22.0 [facility] Comment on above: Performed By: #### M ORPH, CBC, GFR, VIDH, DIFF, CMP, LIPID, B12 #### [place] [id number] Calcium [Mass/Vol] 9.3 mg/dL Normal 8.7-10.4 [facility] Comment on above: Performed By: #### M ORPH, CBC, GFR, VIDH, DIFF, CMP, LIPID, B12 #### [place] [id number] Chloride [Moles/Vol] 103 mmol/L Normal 98-110 [facility] Comment on above: Performed By: #### M ORPH, CBC, GFR, VIDH, DIFF, CMP, LIPID, B12 #### [place] [id number] CO2 [Moles/Vol] 28 mmol/L Normal 22-32 [facility] Comment on above: Performed By: #### M ORPH, CBC, GFR, VIDH, DIFF, CMP, LIPID, B12 #### [place] [address] Creatinine [Mass/Vol] 0.57 mg/dL Normal 0.50-1.[address] [facility] Comment on above: Result Comment: Test ing performed on Key Ring analyzer using enzymatic creatinine methodology. Performed By: #### M ORPH, CBC, GFR, VIDH, DIFF, CMP, LIPID, B12 #### [place] [id number] Electrolyte Balance 8.0 mEq/L Normal 4.0-15.[address] [facility] Comment on above: Performed By: #### M ORPH, CBC, GFR, VIDH, DIFF, CMP, LIPID, B12 #### [place] [address] Globulin 2.2 G/dL Low 2.5-4.2 [facility] Comment on above: Performed By: #### M ORPH, CBC, GFR, VIDH, DIFF, CMP, LIPID, B12 #### [address] [address] Glucose [Mass/Vol] 93 mg/dL Normal 82-115 [facility] Comment on above: Performed By: #### M ORPH, CBC, GFR, VIDH, DIFF, CMP, LIPID, B12 #### [address] [address] Potassium [Moles/Vol] 4.3 mmol/L Normal 3.5-5.[address] [facility] Comment on above: Performed By: #### M ORPH, CBC, GFR, VIDH, DIFF, CMP, LIPID, B12 #### [place] [id number] Sodium [Moles/Vol] 139 mmol/L Normal 136-145 [facility] Comment on above: Performed By: #### M ORPH, CBC, GFR, VIDH, DIFF, CMP, LIPID, B12 #### [place] [id number] Total Protein 6.2 G/dL Normal 5.7-8.2 [facility] Comment on above: Performed By: #### M ORPH, CBC, GFR, VIDH, DIFF, CMP, LIPID, B12 #### [place] [address] Urea nitrogen [Mass/Vol] 6.0 mg/dL Low 8.0-22.0 [facility] Comment on above: Performed By: #### M ORPH, CBC, GFR, VIDH, DIFF, CMP, LIPID, B12 #### [address] [address] LIPIDon 12-12-2024 Cholesterol [Mass/Vol] 133 mg/dL Normal 50-199 [facility] Comment on above: Result Comment: Chol esterol Reference Interval: Less than 200 Desirable 200-239 Borderline high risk 240 and above High risk Performed By: #### M ORPH, CBC, GFR, VIDH, DIFF, CMP, LIPID, B12 #### [place] [id number] Cholesterol in HDL [Mass/Vol] 57 mg/dL Normal 40-59 [facility] Comment on above: Performed By: #### M ORPH, CBC, GFR, VIDH, DIFF, CMP, LIPID, B12 #### [place] [address] Cholesterol in LDL [Mass/Vol] 47 mg/dL Normal 0-129 [facility] Comment on above: Performed By: #### M ORPH, CBC, GFR, VIDH, DIFF, CMP, LIPID, B12 #### [place] [address] Triglyceride [Mass/Vol] 146 mg/dL Normal 3-149 [facility] Comment on above: Performed By: #### M ORPH, CBC, GFR, VIDH, DIFF, CMP, LIPID, B12 #### [place] [address] MALBRon 12-12-2024 U Creatinine 25.5 mg/dL Normal [facility] Comment on above: Performed By: #### M ALBR #### [place] [id number] U Microalb <3.0 Normal [facility] Comment on above: Performed By: #### M ALBR #### [place] [id number] U Ratio Alb/Cre Unable to Calculate Normal 0.0-30.0 [facility] Comment on above: Result Comment: Unab le to calculate this test result accurately. Results used to calculate this test are outside the reportable range. Performed By: #### M ALBR #### [place] [address] VIDHon 12-12-2024 Vit. D 25-Hydroxy 53.0 ng/mL Normal [facility] Comment on above: Result Comment: Inte rpretive Values Based on Total 25(OH)D: Severe Deficiency <20 ng/mL Mild to Moderate Deficiency 20-30 ng/mL Optimum Levels 30-100 ng/mL Toxicity Possible >100 ng/mL Performed By: #### M ORPH, CBC, GFR, VIDH, DIFF, CMP, LIPID, B12 ####[address] [address] BD BONE DENSITY DEXA AXIAL S Jaclyn 12-07-2024 BD BONE DENSITY DEXA AXIAL SKELETON ORIGINAL EXAMINATION: BONE DENSITOMETRY 12/06/2024 2:30 pm TECHNIQUE: A bone density dual x-ray absorptiometry (DEXA) scan was performed of the axial (e.g. hips, spine) and/or appendicular (e.g. radius) skeleton as appropriate. COMPARISON: None. HISTORY: Reason for Exam: Screening for osteoporosis FINDINGS: BMD (g/cm2) Lumbar Spine: 0.930. T Score Lumbar Spine: -1.1 BMD (g/cm2) Left Femoral Neck: 0.776. T Score Left Femoral Neck: -0.7 BMD (g/cm2) Left Hip: 0.990. T Score Left Hip: 0.4 FRAX: 10 year fracture risk assessment Major osteoporotic fracture: 9.8% Hip fracture: 0.8% The BHOF f/k/a NOF recommends that FDA-approved medical therapies be considered in post-menopausal women and men age >/= 50 years with a: * Hip or vertebral fracture, or * T-score of /= 20% for major osteoporotic fractures or * >/= 3% for hip fractures All treatment decisions require clinical judgement and consideration of individual patient factors, including patient preferences, comorbidities, previous drug use, risk factors not captured in the FRAX registered model (e.g., frailty, falls, vitamin D deficiency, increased bone turnover, interval significant decline in bone density) and possible under- or over-estimation of fracture risk by FRAX. IMPRESSION: Osteopenia. I have personally reviewed the images of this examination and agree with the resident's findings and interpretation. Interpreted by: Ethel Dos Santos MD Preliminary Report By: Lito Rosenberg Electronically signed By Ethel Dos Santos MD Dictated Date: 12/07/2024 9:47:41 AM Prelim Date: 12/07/2024 7:44:05 PM Sign Date: 12/07/2024 7:44:05 PM Ordering Provider: BALDO MOSES [facility] MAMMOGRAM SCREENING BILAT ERAL W/TOMOon 12-07-2024 MA MAMMOGRAM SCREENING BILATERAL W/MO ORIGINAL FROM: [address] [address] PROCEDURE FOR: [place] [address] Home: PID#: [id number] Exam#: [id number] : 1955 Age: 69 TO: BALDO MOSES NP [facility] [place], [place] [address] EXAMINATION: SCREENING DIGITAL BILATERAL MAMMOGRAM WITH TOMOSYNTHESIS, 12/06/2024 1:52 pm TECHNIQUE: Screening mammography of the bilateral breasts was performed with tomosynthesis. 2D standard and 3D tomosynthesis combination imaging performed through both breasts in the MLO and CC projection. Computer aided detection was utilized in the interpretation of this exam. COMPARISON: 05/26/2021, 05/07/2020 HISTORY: Breast cancer screening. FINDINGS: BREAST DENSITY: The breasts are heterogeneously dense, which may obscure small masses. There are benign appearing calcifications in both breasts. There are no significant masses or calcifications. IMPRESSION: No mammographic evidence of malignancy. Continued screening with annual mammograms is recommended. Tyrcasey zick risk calculations, generated with the history provided, report this patient's 10 year risk and lifetime risk for developing breast cancer at 3.6% and 6.1%, respectively. Based on this assessment tool, if the patient's calculated lifetime risk is below 20%, then the patient is considered at average risk for developing breast cancer. If the patient's calculated lifetime risk is at or above 20%, then the patient is considered high risk for developing breast cancer and may be a candidate for supplemental breast MRI screening in addition to annual mammographic screening per the [place] [employer]. 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 Please advise. Best time of day caller can be reached: Any Patient advised that office/PCP has 24-48 business hours to return their call: Normal [facility] CBC W/Diff, Automatedon 08-09 PLT EST ADEQUATE Normal ADEQ [facility] Comment on above: Performed By: #### L 501.6710, L500.4050, L100.0100 #### [facility] [address] [facility] [address] CRPon 08-27-2024 C-REACTIVE PROT < 3.00 Normal 0.0-3.0 [facility] Comment on above: Performed By: #### L 501.6710, L500.4050, L100.0100 #### [facility] [address] [facility] [address] Comprehensive Metabolic Prof ilon 08-27-2024 Albumin [Mass/Vol] 4.7 g/dL Normal 3.4-4.8 [facility] Comment on above: Performed By: #### L 501.6710, L500.4050, L100.0100 #### [facility] [address] [place], [address] Albumin/Globulin [Mass ratio] 1.8 {ratio} Normal 0.9-2.4 [facility] Comment on above: Performed By: #### L 501.6710, L500.4050, L100.0100 #### [facility] [address] [place], [address] ALK PHOS 86 U/L Normal 35-104 [facility] Comment on above: Performed By: #### L 501.6710, L500.4050, L100.0100 #### [facility] [address] [place], [address] ALT [Catalytic activity/Vol] 8 U/L Normal <=34 [facility] Comment on above: Performed By: #### L 501.6710, L500.4050, L100.0100 #### [facility] [address] [place], [address] AST [Catalytic activity/Vol] 21 U/L Normal <=31 [facility] Comment on above: Performed By: #### L 501.6710, L500.4050, L100.0100 #### [facility] [address] [place], [address] Bilirubin [Mass/Vol] 0.83 mg/dL Normal 0.00-1.30 [facility] Comment on above: Performed By: #### L 501.6710, L500.4050, L100.0100 #### [facility] [address] [place], [address] BUN/CRE 8.1 RATIO Low 10-20 [facility] Comment on above: Performed By: #### L 501.6710, L500.4050, L100.0100 #### [facility] [address] [place], [address] Calcium [Mass/Vol] 9.9 mg/dL Normal 7.6-11.0 [facility] Comment on above: Performed By: #### L 501.6710, L500.4050, L100.0100 #### [facility] [address] [place], [address] Chloride [Moles/Vol] 105 mmol/L Normal 98-108 [facility] Comment on above: Performed By: #### L 501.6710, L500.4050, L100.0100 #### [facility] [address] [place], [address] CO2 [Moles/Vol] 25.1 mmol/L Normal 21.0-32.0 [facility] Comment on above: Performed By: #### L 501.6710, L500.4050, L100.0100 #### [facility] [address] [place], [address] Creatinine [Mass/Vol] 0.63 mg/dL Low 0.70-1.20 [facility] Comment on above: Performed By: #### L 501.6710, L500.4050, L100.0100 #### [facility] [address] [place], [address] GAP 11 Normal 5-15 [facility] Comment on above: Performed By: #### L 501.6710, L500.4050, L100.0100 #### [facility] [address] [place], [address] GFR/1.73 sq M.predicted among non-blacks MDRD (S/P/Bld) [Vol rate/Area] 96 mL/min/{1.73_m2} Normal >60 [facility] Comment on above: Result Comment: mL/m in/1.73m2 CKD-EPI Creatinine Equation (2020) Performed By: #### L 501.6710, L500.4050, L100.0100 #### [facility] [address] [place], [address] Globulin (S) [Mass/Vol] 2.6 g/dL Normal 2.2-4.2 [facility] Comment on above: Performed By: #### L 501.6710, L500.4050, L100.0100 #### [facility] [address] [place], [address] Glucose [Mass/Vol] 93 mg/dL Normal 70-99 [facility] Comment on above: Performed By: #### L 501.6710, L500.4050, L100.0100 #### [facility] [address] [place], [address] Potassium [Moles/Vol] 3.8 mmol/L Normal 3.3-5.1 [facility] Comment on above: Performed By: #### L 501.6710, L500.4050, L100.0100 #### [facility] [address] [place], [address] Sodium [Moles/Vol] 141 mmol/L Normal 133-145 [facility] Comment on above: Performed By: #### L 501.6710, L500.4050, L100.0100 #### [facility] [address] [place], [address] T PROT 7.2 g/dL Normal 5.9-8.4 [facility] Comment on above: Performed By: #### L 501.6710, L500.4050, L100.0100 #### [facility] [address] [place], [address] Urea nitrogen [Mass/Vol] 5 mg/dL Normal 4-19 [facility] Comment on above: Performed By: #### L 501.6710, L500.4050, L100.0100 #### [facility] [address] [place], [address] Gastroenterology Visit Repor ton 08-27-2024 Gastroenterology Visit Report [facility] [address] [place] [address] OFFICE VISIT Date of Service: 08/27/24 MR#: [id number] Acct: [id number] Name: NADIRA BENÍTEZ Rep #: [id number] : 1955 Provider: REY hoskins Age/Sex: 69/F Location: [facility] Status: Signed Intake Vital Signs 12/19/23 09:28 Height 5 ft 4 in Intake Visit Reasons: PANCREATIC INSUFFICIENCY FLARE Allergies sulfamethoxazole (From Bactrim) Allergy (Verified 08/27/24 14:22) Rash trimethoprim (From Bactrim) Allergy (Verified 08/27/24 14:22) Rash Medications ???Medication ???Instructions ???Recorded ???Confirmed ???Type pantoprazole 40 mg tablet,delayed 40 mg PO DAILY 02/24/13 08/27/24 History release alprazolam 0.5 mg tablet 0.5 mg PO TID PRN PRN Anxiety 05/1208/27/24 History aspirin 81 mg tablet,delayed 81 mg PO DAILY 05/25/19 08/27/24 H istory release (Adult Aspirin Regimen) pyridoxine (vitamin B6) 25 mg 25 mg PO DAILY 05/25/19 08/27/24 H istory tablet metoprolol tartrate 50 mg tablet 50 mg PO TID 01/08/20 08/27/24 His tory cholecalciferol (vitamin D3) 25 3,000 unit PO DAILY 11/12/2108/27 History mcg (1,000 unit) tablet cyanocobalamin (vitamin B-12) 500 1,000 mcg PO DAILY 11/12/2108/27 History mcg lozenges folic acid 800 mcg tablet 2.4 mg PO DAILY 11/12/21 08/27/24 History gabapentin 600 mg tablet 1,200 mg PO TID 11/12/21 08/27/24 History hydroxychloroquine 200 mg tablet 200 mg PO BID 11/12/21 08/27/24 Hi story magnesium oxide 400 mg PO DAILY 11/12/21 08/27/24 History multivitamin 1 tab PO DAILY 11/12/21 08/27/24 H istory zolpidem 10 mg tablet (Ambien) 10 mg PO QHS 11/12/21 08/27/24 His tory atorvastatin 80 mg tablet 80 mg PO QHS 05/24/22 08/27/24 His tory duloxetine 30 mg capsule,delayed 30 mg PO TID 05/24/22 08/27/24 His tory release celecoxib 200 mg capsule (Celebrex) 200 mg PO Q24H 11/15/22 5 History methotrexate sodium 2.5 mg tablet 10 mg PO QWEEK 05/05/23 08/27/24 History nitroglycerin 0.4 mg sublingual 0.4 mg sublingual Q5-15M PRN chest 08/30/23 08/27/24 Rx tablet (Nitrostat) pain #25 tabs zinc gluconate 100 mg tablet 200 mg PO QDAY 12/19/23 08/27/24 H istory budesonide 9 mg tablet,delayed and 9 mg PO QDAY #30 ea 01/06/24 Rx extended release ondansetron HCl 4 mg tablet 4 mg PO Q6H PRN nausea and 4 08/27/24 Rx vomiting #120 tabs lisinopril 5 mg tablet 5 mg PO BID #180 tabs 02/07/24 Rx dicyclomine 20 mg tablet 20 mg PO 4X/DAY PRN cramps #120 08/27/24 Rx tabs xtkxtk-zkixwjaz-ojzekhy 3 cap PO QAC #300 caps 08/27/24 Rx 36,000-114,000-180,000 unit capsule,delay rel (Creon) metronidazole 500 mg tablet 500 mg PO BID 5 days #10 tabs 08/0908/27/24 Rx Have you fallen in the past year?: No PFSH Medical History Exocrine pancreatic insufficiency Small intestinal bacterial overgrowth (SIBO) Injury of head and neck History of diverticulitis History of stress test Wears glasses Post-menopausal Depression History of steroid therapy Arthritis Anemia High cholesterol Migraine headache History of ulceration Chronic diarrhea Gastric reflux Former smoker History of pain when walking History of edema History of echocardiogram Cardiology follow-up encounter History of irregular heartbeat Chest pain Vitamin B12 deficiency Vitamin D deficiency Iron deficiency anemia Persistent insomnia Anxiety Premature ventricular contraction Premature atrial contraction Atherosclerotic heart disease of [place] coronary artery without angina pectoris Coronary artery disease anterior neck fusion history of posterior neck fusion history of right knee tumor Rheumatoid arthritis Osteoporosis Osteoarthritis neck posterior and anterior repair Diverticulitis neck/back pain Limb weakness Difficulty balancing Knee pain Diarrhea Stomach ulcer Shoulder pain Hypertension Hyperlipidemia GERD (gastroesophageal reflux disease) Diverticulosis of colon without diverticulitis History of depression Benign hypertension Gastroenteritis Surgical History History of total left knee replacement History of cardiac catheterization History of bilateral oophorectomies History of bowel resection History of coronary artery bypass surgery ( 12/27/19) Status post right rotator cuff repair History of tonsillectomy and adenoidectomy History of total knee replacement (TKR) Family History Father Leukemia Brother Heart disease Mother CAD (coronary artery disease) Heart disease Sister Chronic glomerulone (more content not included)... [address] 08-23-2024 36 Called appt made gucci Cavanaugh [place] [id number] 36 Left voice message f or pt to call to new pt appt. [place] [id number] 36 Left voice message f or pt to call to new pt appt. [address] 08-02-2024 36 Name of caller: Maria Elena tran Contact phone number: [phone] Relationship to Patient: patient Provider: Dr. Cavanaugh Practice: [facility] Chief Complaint/Reason for Call: Nadira states she needs to cancel her 08/02/24 3:00 PM new patient appointment today and that she will call back at a later time to reschedule. Please be advised. Best time of day caller can be reached: Any Patient advised that office/PCP has 24-48 business hours to return their call: Yes [place] [address]on 05-29-2024 36 Called patient made denisse Huber [facility] Gastroenterology Visit Repor ton 04-20-2024 Gastroenterology Visit Report [facility] [address] [place] [address] OFFICE VISIT Date of Service: 04/20/24 MR#: [id number] Acct: [id number] Name: NADIRA BENÍTEZ Rep #: [id number] : 1955 Provider: Mychal Friend, DO Age/Sex: 69/F Location: [facility] Status: Signed Intake Vital Signs 12/19/23 09:28 Height 5 ft 4 in Weight: 190 lb BMI 32.5 BP 167/84 H Blood Pressure Location Lt brachial Position Sitting Respiration 18 Pulse 54 L Pulse Source Monitor Pulse Oximetry (%) 98 Oxygen Delivery Method room air Intake Visit Reasons: 4 M FU Allergies sulfamethoxazole (From Bactrim) Allergy (Verified 12/19/23 09:29) Rash trimethoprim (From Bactrim) Allergy (Verified 12/19/23 09:29) Rash Medications ???Medication ???Instructions ???Recorded ???Confirmed ???Type pantoprazole 40 mg tablet,delayed 40 mg PO DAILY 02/24/13 04/20/24 History release alprazolam 0.5 mg tablet 0.5 mg PO TID PRN PRN Anxiety 05/25/19 04/20/24 History aspirin 81 mg tablet,delayed 81 mg PO DAILY 05/25/19 04/20/24 History release (Adult Aspirin Regimen) pyridoxine (vitamin B6) 25 mg 25 mg PO DAILY 05/25/19 04/20/24 History tablet metoprolol tartrate 50 mg tablet 50 mg PO TID 01/08/20 04/20/24 History cholecalciferol (vitamin D3) 25 3,000 unit PO DAILY 11/12/21 04/20/24 History mcg (1,000 unit) tablet cyanocobalamin (vitamin B-12) 500 1,000 mcg PO DAILY 11/12/21 04/20/24 History mcg lozenges folic acid 800 mcg tablet 2.4 mg PO DAILY 11/12/21 04/20/24 History gabapentin 600 mg tablet 1,200 mg PO TID 11/12/21 04/20/24 History hydroxychloroquine 200 mg tablet 200 mg PO BID 11/12/21 04/20/24 History magnesium oxide 400 mg PO DAILY 11/12/21 04/20/24 History multivitamin 1 tab PO DAILY 11/12/21 04/20/24 History zolpidem 10 mg tablet (Ambien) 10 mg PO QHS 11/12/21 04/20/24 History atorvastatin 80 mg tablet 80 mg PO QHS 05/24/22 04/20/24 History duloxetine 30 mg capsule,delayed 30 mg PO TID 05/24/22 04/20/24 History release celecoxib 200 mg capsule (Celebrex) 200 mg PO Q24H 11/15/22 04/20/24 History methotrexate sodium 2.5 mg tablet 10 mg PO QWEEK 05/05/23 04/20/24 History nitroglycerin 0.4 mg sublingual 0.4 mg sublingual Q5-15M PRN chest 08/30/23 04/20/24 Rx tablet (Nitrostat) pain #25 tabs zinc gluconate 100 mg tablet 200 mg PO QDAY 12/19/23 04/20/24 History budesonide 9 mg tablet,delayed and 9 mg PO QDAY #30 ea 01/06/24 04/20/24 Rx extended release ondansetron HCl 4 mg tablet 4 mg PO Q6H PRN nausea and 01/06/24 04/20/24 Rx vomiting #120 tabs lisinopril 5 mg tablet 5 mg PO BID #180 tabs 02/07/24 04/20/24 Rx dicyclomine 20 mg tablet 20 mg PO 4X/DAY PRN cramps #120 04/20/24 04/20/24 Rx tabs xnclqn-bjvwblkq-wfprssd 3 cap PO QAC #300 caps 04/20/24 04/20/24 Rx 36,000-114,000-180,000 unit capsule,delay rel (Creon) Have you fallen in the past year?: No PFSH Medical History Exocrine pancreatic insufficiency Small intestinal bacterial overgrowth (SIBO) Injury of head and neck History of diverticulitis History of stress test Wears glasses Post-menopausal Depression History of steroid therapy Arthritis Anemia High cholesterol Migraine headache History of ulceration Chronic diarrhea Gastric reflux Former smoker History of pain when walking History of edema History of echocardiogram Cardiology follow-up encounter History of irregular heartbeat Chest pain Vitamin B12 deficiency Vitamin D deficiency Iron deficiency anemia Persistent insomnia Anxiety Premature ventricular contraction Premature atrial contraction Atherosclerotic heart disease of [place] coronary artery without angina pectoris Coronary artery disease anterior neck fusion history of posterior neck fusion history of right knee tumor Rheumatoid arthritis Osteoporosis Osteoarthritis neck posterior and anterior repair Diverticulitis neck/back pain Limb weakness Difficulty balancing Knee pain Diarrhea Stomach ulcer Shoulder pain Hypertension Hyperlipidemia GERD (gastroesophageal reflux disease) Diverticulosis of colon without diverticulitis History of depression Benign hypertension Gastroenteritis Surgical History History of total left knee replacement History of cardiac catheterization History of bilateral oophorectomies History of bowel resection History of coronary artery bypass surgery ( 12/27/19) Status post right rotator cuff repair History of tonsillectomy and adenoidectomy History of total knee replacement (TKR) Family History Father Leukemia Brother Heart disease Mother CAD (coronary artery diseas (more content not included)... Normal [facility] 02-08-2024 LUIS Telephone (CAUNDO) -------- NADIRA BENÍTEZ ([id number]) 1955 F T Date Time Provider Department 02/08/24 CESARIO HALL During your visit today, we recorded the following information about you: Ene Layton MA 02/08/2024 4:12 PM Signed Left message for patient in regards of her 03/07/2024 appointment with Fariba Ortega APRN., CNP . Patient needs scheduled with Cesario Hall APRN.CNP as an ER follow up from [facility] for Chest Pain and Hypertensive Urgency with history of CABG. Ene Layton MA February 08, 2024 4:12 PM Ene Layton MA 02/09/2024 8:18 AM Signed Left message for patient to call the office. KELTON Galicia Hannah, MA 02/14/2024 1:10 PM Signed Left message with patient and patient's daughter about patient's appointment. Ene Layton MA Allergies As of Date: 02/08/2024 Noted Allergy Reaction BACTRIM (SULFAMETHOXAZOLE-TRIMET H*12/15/2004 2 - Rash Date Reviewed: 02/07/2024 Reviewed by: Tracey Jacob RT(R) - Fully Assessed 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: Appointment [186] Prescriptions as of 02/14/2024 - methotrexate 2.5 mg tablet Take 2.5 mg by mouth one time a week. 10 tabs PO Weekly - diphenoxylate-atropine (LOMOTIL) 2.5-0.025 mg per tablet Take 1 tablet by mouth as needed. - ondansetron orally disintegrating (ZOFRAN ODT) 4 mg disintegrating tablet Take 1 tablet by mouth as needed. - celecoxib (CELEBREX) 200 mg capsule Take 200 mg by mouth twice daily. - predniSONE (DELTASONE) 10 mg tablet Take 4 tabs daily for 3 days, then 2 tabs daily for 3 days, then 1 tab daily for 3 days with food. - metoprolol tartrate, short acting, (LOPRESSOR) 50 mg tablet Take 1.5 tablets by mouth twice daily. - metoprolol tartrate, short acting, (LOPRESSOR) 50 mg tablet Take 1.5 tablets by mouth twice daily. - ascorbic acid, vitamin C, (VITAMIN C) 500 mg tablet Take 1 tablet by mouth twice daily before meals. - aspirin 81 mg chewable tablet Take Aspirin 162 mg (2 tablets) daily until 01/16 when starting Plavix, then decrease Aspirin to 81 mg daily. - ferrous sulfate 325 mg (65 mg iron) tablet Take 1 tablet by mouth once daily. - acetaminophen (TYLENOL) 500 mg tablet Take 2 tablets by mouth every 6 hours as needed for Pain. - hydrOXYchloroQUINE (PLAQUENIL) 200 mg tablet Take 200 mg by mouth twice daily. - methotrexate 2.5 mg tablet Take 8 tablets by mouth once each week. - folic acid 1 mg tablet Take 1 tablet by mouth once daily. - pyridoxine, vitamin B6, (VITAMIN B-6) 100 mg tablet Take 25 mg by mouth once daily. - DULoxetine (CYMBALTA) 30 mg capsule Take 30 mg by mouth once daily. - gabapentin (NEURONTIN) 600 mg tablet Take 1,200 mg by mouth three times daily. - ALENDRONATE SODIUM (FOSAMAX ORAL) Take 70 mg by mouth once each week. - atorvastatin (LIPITOR) 80 mg tablet Take 80 mg by mouth once daily. - pantoprazole DR (PROTONIX) 20 mg tablet Take 20 mg by mouth once daily. - zolpidem (AMBIEN) 10 mg tab Take by mouth at bedtime as needed. - ALPRAZolam (XANAX) 0.5 mg tablet Take 0.5 mg by mouth three times daily as needed for Anxiety. - Cholecalciferol, Vitamin D3, 25 mcg (1,000 unit) cap Take 2,000 Units by mouth once daily. - cyanocobalamin (VITAMIN B-12) 500 mcg tablet Take by mouth once daily. - magnesium oxide 400 mg cap Take by mouth once daily. - aspirin(ECOTRIN LOW STRENGTH 81 MG TAB) Take one(1) tablet daily. - calcium carbonate/vitamin d3(CALCIUM 500 WITH VITAMIN D 500 MG (1,250 MG)-200 UNIT TAB) Take one(1) tablet two(2) times daily. - ALL PURPOSE MULTIVITAMIN-MIN ORAL TAB Take one(1) tablet daily. Problem List As Of Date 02/08/2024 Noted Resolved CARDIAC DYSRHYTHMIA NOS [I49.9] DYSTHYMIC DISORDER [F34.1] ANEMIA NOS [D64.9] GENERAL OSTEOARTHROSIS [M15.9] LUMBAGO [M54.50] Sprain of foot, unspecified site [S93.609A] 08/26/2008 01/10/2020 Seronegative rheumatoid arthritis (HCC) [M06.00]08/17/2016 Angina of effort (HCC) [I20.89] 12/03/2019 01/10/2020 CAD (coronary artery disease) [I25.10] 12/25/2019 Obesity, Class I, BMI 30-34.9 [E66.811] 12/27/2019 Stenosis of right carotid artery [I65.21] 12/31/2019 Hx of CABG [Z95.1] 12/31/2019 Right knee pain [M25.561] 01/10/2020 Encounter Status:Closed by ENE LAYTON on 02/08/24 [facility] ALLIED HEALTHon 02-07-2024 ALLIED HEALTH HNO ID: [id number] Author: MAIRA WILSON RT(R) Service: Radiology Author Type: Technologist Type: Allied Health Filed: 02/07/2024 14:45 Note Text: -------- Summary: CT SCAN -------- Radiology Service Progress Note DATE OF SERVICE: February 07, 2024 TIME: 2:45 PM PATIENT IDENTITY VERIFICATION COMPLETED USING TWO (2) STANDARD IDENTIFIERS: Name and Date of confirmed by patient verbally and Name and Date of confirmed by identification band. FALL SCREENING: Has the patient had 2 falls in the last year or 1 fall with injury or currently using an Ambulatory Assistive Device (Walker, Cane, Wheelchair, Crutches, etc.)? Emergency Room Patient: Screened in ED PATIENT GENDER DATA: Female. status: : No status: NO. PATIENT RELEVANT IMPLANT DATA REVIEWED: Not Applicable PATIENT PRESENTS WITH AN IMPLANTABLE OR ATTACHED DIESEL ENGINE ENGINEER: No ALLERGIES: Reviewed and unchanged CONTRAST ALLERGY: NO. EXAM: CT -CONTRAST INDUCED NEPHROPATHY RISK FACTORS: Patient age > 60 years CREATININE: Creatinine Date Value Ref Range Status 02/07/2024 0.46 (L) 0.51 - 0.95 mg/dL Final Comment: Patients receiving either N-Acetylcysteine (NAC) or Metamizole prior to venipuncture, may have falsely depressed results. 02/27/2020 0.56 0.510 - 0.950 MG/DL Final Comment: Patients receiving either N-Acetylcysteine (NAC) or Metamizole prior to venipuncture, may have falsely depressed results. 01/09/2020 0.49 (L) 0.58 - 0.96 mg/dL Final Estimated Glomerular Filtration Rate Date Value Ref Range Status 02/07/2024 104 >=60 mL/min/1.73m? Final Comment: Estimated Glomerular Filtration Rate (eGFR) is calculated using the 2020 CKD-EPI creatinine equation. This equation utilizes serum creatinine, sex, and age as parameters. The creatinine assay has traceable calibration to isotope dilution-mass spectrometry. Refer to KDIGO guidelines for clinical interpretation. In patients with unstable renal function, e.g. those with acute kidney injury, the eGFR may not accurately reflect actual GFR. eGFR- Date Value Ref Range Status 02/27/2020 Greater than 60 Final P.O.C.T. RESULTS: POC done: Yes, See Lab Tab February 07, 2024 TREATMENT: N/A PERIPHERAL IV DATA: Inpatient - refer to LDA documentation RADIOLOGY DEPARTMENT: CT; Exam(s) Completed: PE Study SIGNATURE: RT Dc(R)(CT) PATIENT NAME: Nadira Benítez DATE: February 07, 2024 TIME: 2:45 PM Normal [facility] CBC W Auto Differential pane l (Bld)on 02-07-2024 Basophils (Bld) [#/Vol] 0.00 10*3/uL Normal <0.11 [facility] Comment on above: Order Comment: Chinedu moise Type: BLOOD SPECIMEN Ordering Facility: [facility] Address: [address] [place] [address] Performed By: #### 5 7021-8, [id number] #### [facility] CLIA [id number] [address] [place] [address] [place] Basophils/100 WBC (Bld) 0.0 % Normal [facility] Comment on above: Order Comment: Chinedu moise Type: BLOOD SPECIMEN Ordering Facility: [facility] Address: [address] [place] [address] Performed By: #### 5 7021-8, [id number] #### [facility] CLIA [id number] [address] [place] [address] [place] Differential cell count method Nom (Bld) Manual Normal [facility] Comment on above: Order Comment: Chinedu moise Type: BLOOD SPECIMEN Ordering Facility: [facility] Address: [address] [place] [address] Performed By: #### 5 7021-8, [id number] #### [facility] CLIA [id number] [address] [place] [address] [place] Eosinophils (Bld) [#/Vol] 0.00 10*3/uL Normal <0.46 [facility] Comment on above: Order Comment: Speci men Type: BLOOD SPECIMEN Ordering Facility: [facility] Address: [address] [place] [address] Performed By: #### 5 7021-8, [id number] #### [facility] CLIA [id number] [address] [place] [address] [place] Eosinophils/100 WBC (Bld) 0.0 % Normal [facility] Comment on above: Order Comment: Speci men Type: BLOOD SPECIMEN Ordering Facility: [facility] Address: [address] [place] [address] Performed By: #### 5 7021-8, [id number] #### [facility] CLIA [id number] [address] [place] [address] [place] Erythrocyte distribution width (RBC) [Ratio] 14.5 % Normal 11.5-15.0 [facility] Comment on above: Order Comment: Speci men Type: BLOOD SPECIMEN Ordering Facility: [facility] Address: [address] [place] [address] Performed By: #### 5 7021-8, [id number] #### [facility] CLIA [id number] [address] [place] [address] [place] Hematocrit (Bld) [Volume fraction] 38.2 % Normal 36.0-46.0 [facility] Comment on above: Order Comment: Speci men Type: BLOOD SPECIMEN Ordering Facility: [facility] Address: [address] [place] [address] Performed By: #### 5 7021-8, [id number] #### [facility] CLIA [id number] [address] [place] [address] [place] Hemoglobin (Bld) [Mass/Vol] 13.1 g/dL Normal 11.5-15.5 [facility] Comment on above: Order Comment: Speci men Type: BLOOD SPECIMEN Ordering Facility: [facility] Address: [address] [place] [address] Performed By: #### 5 7021-8, [id number] #### [facility] CLIA [id number] [address] [place] [address] [place] Lymphocytes (Bld) [#/Vol] 5.94 10*3/uL High 1.00-4.0 0 [facility] Comment on above: Order Comment: Speci men Type: BLOOD SPECIMEN Ordering Facility: [facility] Address: [address] [place] [address] Performed By: #### 5 7021-8, [id number] #### [facility] CLIA [id number] [address] [place] [address] [place] Lymphocytes/100 WBC (Bld) 49.0 % Normal [facility] Comment on above: Order Comment: Speci men Type: BLOOD SPECIMEN Ordering Facility: [facility] Address: [address] [place] [address] Performed By: #### 5 7021-8, [id number] #### [facility] CLIA [id number] [address] [place] [address] [place] MCH (RBC) [Entitic mass] 30.0 pg Normal 26.0-34.0 [facility] Comment on above: Order Comment: Speci men Type: BLOOD SPECIMEN Ordering Facility: [facility] Address: [address] [place] [address] Performed By: #### 5 7021-8, [id number] #### [facility] CLIA [id number] [address] [place] [address] [place] MCHC (RBC) [Mass/Vol] 34.3 g/dL Normal 30.5-36.0 [facility] Comment on above: Order Comment: Speci men Type: BLOOD SPECIMEN Ordering Facility: [facility] Address: [address] [place] [address] Performed By: #### 5 7021-8, [id number] #### [facility] CLIA [id number] [address] [place] [address] [place] MCV (RBC) [Entitic vol] 87.4 fL Normal 80.0-100.0 [facility] Comment on above: Order Comment: Speci men Type: BLOOD SPECIMEN Ordering Facility: [facility] Address: [address] [place] [address] Performed By: #### 5 7021-8, [id number] #### [facility] CLIA [id number] [address] [place] [address] [place] Monocytes (Bld) [#/Vol] 0.97 10*3/uL High <0.87 [facility] Comment on above: Order Comment: Speci men Type: BLOOD SPECIMEN Ordering Facility: [facility] Address: [address] [place] [address] Performed By: #### 5 7021-8, [id number] #### [facility] CLIA [id number] [address] [place] [address] [place] Monocytes/100 WBC (Bld) 8.0 % Normal [facility] Comment on above: Order Comment: Speci men Type: BLOOD SPECIMEN Ordering Facility: [facility] Address: [address] [place] [address] Performed By: #### 5 7021-8, [id number] #### [facility] CLIA [id number] [address] [place] [address] [place] Neutrophils (Bld) [#/Vol] 5.21 10*3/uL Normal 1.45-7.5 0 [facility] Comment on above: Order Comment: Speci men Type: BLOOD SPECIMEN Ordering Facility: [facility] Address: [address] [place] [address] Performed By: #### 5 7021-8, [id number] #### [facility] CLIA [id number] [address] [place] [address] [place] Neutrophils/100 WBC (Bld) 43.0 % Normal [facility] Comment on above: Order Comment: Speci men Type: BLOOD SPECIMEN Ordering Facility: [facility] Address: [address] [place] [address] Performed By: #### 5 7021-8, [id number] #### [facility] CLIA [id number] [address] [place] [address] [place] Nucleated RBC (Bld) [#/Vol] 10*3/uL Normal <0.01 [facility] Comment on above: Order Comment: Speci men Type: BLOOD SPECIMEN Ordering Facility: [facility] Address: [address] [place] [address] Performed By: #### 5 7021-8, [id number] #### [facility] CLIA [id number] [address] [place] [address] [place] Nucleated RBC/100 WBC (Bld) [Ratio] 0.0 /100 WBC Normal [facility] Comment on above: Order Comment: Speci men Type: BLOOD SPECIMEN Ordering Facility: [facility] Address: [address] [place] [address] Performed By: #### 5 7021-8, [id number] #### [facility] CLIA [id number] [address] [place] [address] [place] Platelet mean volume (Bld) [Entitic vol] 8.2 fL Low 9.0-12.7 [facility] Comment on above: Order Comment: Speci men Type: BLOOD SPECIMEN Ordering Facility: [facility] Address: [address] [place] [address] Performed By: #### 5 7021-8, [id number] #### [facility] CLIA [id number] [address] [place] [address] [place] Platelets (Bld) [#/Vol] 180 10*3/uL Normal 150-400 [facility] Comment on above: Order Comment: Speci men Type: BLOOD SPECIMEN Ordering Facility: [facility] Address: [address] [place] [address] Performed By: #### 5 7021-8, [id number] #### [facility] CLIA [id number] [address] [place] [address] [place] Platelets Estimate (Bld) [#/Vol] Adequate Normal [facility] Comment on above: Order Comment: Speci men Type: BLOOD SPECIMEN Ordering Facility: [facility] Address: [address] [place] [id number] Performed By: #### 5 7021-8, [id number] #### [facility] CLIA [id number] [address] [place] [address] RBC (Bld) [#/Vol] 4.37 10*6/uL Normal 3.90-5.20 [facility] Comment on above: Order Comment: Speci men Type: BLOOD SPECIMEN Ordering Facility: [facility] Address: [address] [place] [address] Performed By: #### 5 7021-8, [id number] #### [facility] CLIA [id number] [address] [place] [address] RED CELL MORPH Reviewed: unremarkable Normal [facility] Comment on above: Order Comment: Speci men Type: BLOOD SPECIMEN Ordering Facility: [facility] Address: [address] [place] [address] Performed By: #### 5 7021-8, [id number] #### [facility] CLIA [id number] [address] [place] [address] [place] WBC (Bld) [#/Vol] 12.12 10*3/uL High 3.70-11.00 [facility] Comment on above: Order Comment: Speci men Type: BLOOD SPECIMEN Ordering Facility: [facility] Address: [address] [place] [address] Performed By: #### 5 7021-8, [id number] #### [facility] CLIA [id number] [address] [place] [address] CTA CHEST (NON GATED) W IVCO N PEon 02-07-2024 CTA CHEST (NON GATED) W IVCON PE * * *Final Report* * * DATE OF EXAM: Feb 07 2024 2:50PM [facility] 0564 - CTA CHEST (NON GATED) W IVCON PE / PROCEDURE REASON: Chest pain, shortness of breath * * * * Physician Interpretation * * * * EXAMINATION: CHEST CTA (NON GATED) WITH CONTRAST (PULMONARY EMBOLISM PROTOCOL) Clinical History: Chest pain, shortness of breath Technique: Spiral CT acquisition of the chest from the thoracic inlet to the upper abdomen following IV contrast. Axial 1.25 mm thick slices plus coronal and sagittal reformatted images. MQ: CTCP_5 Contrast: 85 mL Omnipaque [address] Radiation dose: Integrated Dose-length product (DLP) for this visit = 488.02 mGy*cm CT Dose Reduction Employed: Automated exposure control (AEC) CTA: Post-processed images {Maximum intensity Projection (MIP), Volume-rendered (VR), or Surface shaded display images (SSD)} were created, reviewed and archived. Comparison: No relevant prior studies available. RESULT: Limitations: There is motion artifact which limits evaluation of the smaller vessels. Images of the upper abdomen show no acute abnormalities. There is cholelithiasis. There are no pleural effusions. The heart is mildly prominent. There is no pericardial effusion. There are coronary artery calcifications. The aorta is atherosclerotic with no acute abnormalities. The airways are patent. There are no consolidated infiltrates. The pulmonary arteries appear patent with no emboli identified. IMPRESSION: No pulmonary emboli identified. Molder Sweep: [facility] Transcribe Date/Time: Feb 07 2024 2:57P Dictated by : INGA WHINTEY MD This examination was interpreted and the report reviewed and electronically signed by: INGA WHITNEY MD on Feb 07 2024 2:59PM EST [id number] Normal [facility] Comprehensive metabolic 2000 panelon 02-07-2024 Albumin [Mass/Vol] 3.7 g/dL Normal 3.2-5.0 [facility] Comment on above: Order Comment: Chinedu moise Type: BLOOD SPECIMEN Ordering Facility: [facility] Address: [address] [place] [address] Performed By: #### 2 4323-8, 88817-9, [id number] #### [facility] CLIA [id number] [address] [place] [address] [place] ALP [Catalytic activity/Vol] 75 U/L Normal 45-117 [facility] Comment on above: Order Comment: Chinedu moise Type: BLOOD SPECIMEN Ordering Facility: [facility] Address: [address] [place] [address] Performed By: #### 2 4323-8, 33804-6, [id number] #### [facility] CLIA [id number] [address] [place] [address] [place] ALT [Catalytic activity/Vol] 21 U/L Normal 13-61 [facility] Comment on above: Order Comment: Speci men Type: BLOOD SPECIMEN Ordering Facility: [facility] Address: [address] [place] [address] Result Comment: Resu lts may be falsely depressed after the administration of Sulfasalazine and/or Sulfapyridine. Performed By: #### 2 4323-8, 38685-7, [id number] #### [facility] CLIA [id number] [address] [place], [place] [address] [place] Anion gap [Moles/Vol] 5 mmol/L Normal 5-16 [facility] Comment on above: Order Comment: Speci men Type: BLOOD SPECIMEN Ordering Facility: [facility] Address: [address] [place] [address] Performed By: #### 2 4323-8, 25895-7, [id number] #### [facility] CLIA [id number] [address] [place], [place] [address] [place] AST [Catalytic activity/Vol] 17 U/L Normal 8-34 [facility] Comment on above: Order Comment: Speci men Type: BLOOD SPECIMEN Ordering Facility: [facility] Address: [address] [place] [address] Result Comment: Resu lts may be falsely depressed after the administration of Sulfasalazine and/or Sulfapyridine. Performed By: #### 2 4323-8, 06182-1, [id number] #### [facility] CLIA [id number] [address] [place], [place] [address] [place] Bilirubin [Mass/Vol] 1.1 mg/dL High 0.2-1.0 [facility] Comment on above: Order Comment: Speci men Type: BLOOD SPECIMEN Ordering Facility: [facility] Address: [address] [place] [address] Performed By: #### 2 4323-8, , [id number] #### [facility] CLIA [id number] [address] [place], [place] [address] [place] Calcium [Mass/Vol] 9.6 mg/dL Normal 8.5-10.5 [facility] Comment on above: Order Comment: Speci men Type: BLOOD SPECIMEN Ordering Facility: [facility] Address: [address] [place] [address] Performed By: #### 2 4323-8, , [id number] #### [facility] CLIA [id number] [address] [place], [place] [address] [place] Chloride [Moles/Vol] 104 mmol/L Normal 98-107 [facility] Comment on above: Order Comment: Speci men Type: BLOOD SPECIMEN Ordering Facility: [facility] Address: [address] [place] [address] Performed By: #### 2 4323-8, , [id number] #### [facility] CLIA [id number] [address] [place] [address] [place] CO2 [Moles/Vol] 30 mmol/L Normal 21-32 [facility] Comment on above: Order Comment: Speci men Type: BLOOD SPECIMEN Ordering Facility: [facility] Address: [address] [place] [address] Performed By: #### 2 4323-8, , [id number] #### [facility] CLIA [id number] [address] [place], [place] [address] [place] Creatinine [Mass/Vol] 0.46 mg/dL Low 0.51-0.95 [facility] Comment on above: Order Comment: Speci men Type: BLOOD SPECIMEN Ordering Facility: [facility] Address: [address] [place] [address] Result Comment: Ella ents receiving either N-Acetylcysteine (NAC) or Metamizole prior to venipuncture, may have falsely depressed results. Performed By: #### 2 4323-, , [id number] #### [facility] CLIA [id number] [address] [place] [address] [place] Creatinine and Glomerular filtration rate.predicted panel (S/P/Bld) 104 mL/min/1.73m??? Normal >=60 [facility] Comment on above: Order Comment: Chinedu moise Type: BLOOD SPECIMEN Ordering Facility: [facility] Address: [address] [place] [address] Result Comment: Tati mated Glomerular Filtration Rate (eGFR) is calculated using the 2020 CKD-EPI creatinine equation. This equation utilizes serum creatinine, sex, and age as parameters. The creatinine assay has traceable calibration to isotope dilution-mass spectrometry. Refer to KDIGO guidelines for clinical interpretation. In patients with unstable renal function, e.g. those with acute kidney injury, the eGFR may not accurately reflect actual GFR. Performed By: #### 2 4323-8, , [id number] #### [facility] CLIA [id number] [address] [place] [address] [place] Glucose [Mass/Vol] 81 mg/dL Normal 70-100 [facility] Comment on above: Order Comment: Chinedu moise Type: BLOOD SPECIMEN Ordering Facility: [facility] Address: [address] [place] [address] Result Comment: The [place] [employer] (ADA) provides guidance for cutoff values for fasting glucose and random glucose. The ADA defines fasting as no caloric intake for at least 8 hours. Fasting plasma glucose results between 100 to 125 mg/dL indicate increased risk for diabetes (prediabetes). Fasting plasma glucose results greater than or equal to 126 mg/dL meet the criteria for diagnosis of diabetes. In the absence of unequivocal hyperglycemia, results should be confirmed by repeat testing. In a patient with classic symptoms of hyperglycemia or hyperglycemic crisis, random plasma glucose results greater than or equal to 200 mg/dL meet the criteria for diagnosis of diabetes. Reference: Standards of Medical Care in Diabetes 2016, [place] [employer]. Diabetes Care. 2016.39(Suppl 1). Results may be falsely elevated after the administration of Sulfapyridine. Results may be falsely depressed after the administration of Sulfasalazine. Performed By: #### 2 4323-8, , [id number] #### [facility] CLIA [id number] [address] [place] [address] [place] Potassium [Moles/Vol] 3.6 mmol/L Normal 3.5-5.1 [facility] Comment on above: Order Comment: Speci men Type: BLOOD SPECIMEN Ordering Facility: [facility] Address: [address] [place] [address] Performed By: #### 2 4323-8, , [id number] #### [facility] CLIA [id number] [address] [place], [place] [address] [place] Protein [Mass/Vol] 6.6 g/dL Normal 6.0-8.5 [facility] Comment on above: Order Comment: Speci men Type: BLOOD SPECIMEN Ordering Facility: [facility] Address: [address] [place] [address] Performed By: #### 2 4328, , [id number] #### [facility] CLIA [id number] [address] [place] [address] [place] Sodium [Moles/Vol] 139 mmol/L Normal 136-145 [facility] Comment on above: Order Comment: Speci men Type: BLOOD SPECIMEN Ordering Facility: [facility] Address: [address] [place], [place] [address] Performed By: #### 2 4323-8, , [id number] #### [facility] CLIA [id number] [address] [place], [place] [address] [place] Urea nitrogen [Mass/Vol] 8 mg/dL Normal 7-26 [facility] Comment on above: Order Comment: Speci men Type: BLOOD SPECIMEN Ordering Facility: [facility] Address: [address] [place] [address] Performed By: #### 2 4323-8, , [id number] #### [facility] CLIA [id number] [address] [place], [place] [address] [place] ECG COMPLETEon 02-07-2024 ECG COMPLETE Ventricular Rate : 5 4 BPM Atrial Rate : 54 BPM P-R Interval : 162 ms QRS Duration : 70 ms Q-T Interval : 424 ms QTC Calculation(Bazett) : 402 ms Calculated P [employer] : 64 degrees Calculated R [employer] [place] : 58 degrees Calculated T [employer] [place] : 73 degrees Sinus bradycardia Nonspecific T wave abnormality Abnormal ECG No previous ECGs available Confirmed by GERALD YO MD ([id number]) on 02/07/2024 11:31:54 PM NAME : NADIRA BENÍTEZ PID : [id number] : 1955 Gender : Female Race : ORD : [id number] Procedure Date : Feb 07 2024 13:25:40 Edit Date : Feb 07 2024 23:31:59 Diagnosis: Sinus bradycardia Nonspecific T wave abnormality Abnormal ECG No previous ECGs available Confirmed by GERALD YO MD ([id number]) on 02/07/2024 11:31:54 PM Test Reason : STAT Location : 0 : ED EDFTE Overread By : GERLAD YO MD Edited By : GERALD YO MD Referred By : , Acquired by : [id number], [facility] ED NOTEon 02-07-2024 ED NOTE HNO ID: [id number] Author: RC FLOYD RN Service: ? Author Type: Registered Nurse Type: ED Notes Filed: 02/07/2024 17:46 Note Text: Bed: 39-ED Expected date: Expected time: Means of arrival: Comments: EMS [facility] ED PROV NOTEon 02-07-2024 ED PROV NOTE HNO ID: [id number] Author: CARINA CAAL DO Service: ? Author Type: Physician Type: ED Provider Notes Filed: 02/07/2024 19:48 Note Text: ED Provider Note Patient Name: Nadira Benítez : 1955 SERVICE DATE: 02/07/24 History Patient presents with: Chest Pain: Pt reports that she had a cold last week and now reports left sided chest pain with headache. Pt reports shortness of breath. Patient is a 68-year-old female presenting to the emergency department mostly due to elevated blood pressure readings. Patient states she has had a recent upper respiratory infection symptoms including cough, congestion and rhinorrhea. Denies any significant shortness of breath associated with this. She states she was taking fwyf-sbn-hwexevl decongestants for many days and noted that her blood pressure was quite high with this and therefore stopped taking them. She called her brim rounder today who increased her lisinopril from 5 mg up to 10 mg daily. Patient states she has had some left-sided chest discomfort although she states this has been a chronic issue for her since her CABG in 2019. She states she has had 2 stress tests this year and both were normal. She states she was told by her doctors that she does have abnormal T waves on her EKG chronically and that she would chronically have left-sided chest wall pains from her previous CABG. Patient denies any diaphoresis, denies any fevers, denies any other complaints. History provided by: Patient PAST MEDICAL HISTORY Diagnosis Date Anemia, unspecified Cardiac dysrhythmia, unspecified Cervical vertebral fusion 2014 Dysthymic disorder Esophageal reflux Generalized osteoarthrosis, unspecified site knees Lumbago PAST SURGICAL HISTORY Procedure Laterality Date ANTERIOR INTERBODY FUSION, CERVICAL 2014 CABG (3) VEIN GRAFTS AND ARTERIAL GRAFT(S) 12/27/2019 PAST SURGICAL HISTORY OF colon resected PAST SURGICAL HISTORY OF cyst knee ROTATOR CUFF REPAIR Right 2014 FAMILY HISTORY Problem Relation Age of Onset Cancer Father LEUKEMIA AGE 56 Osteoporosis Mother Heart Mother CAD,CHF, renal failure Breast Cancer Sister AGE 46 CA OF BONE Breast Cancer Maternal Aunt Breast Cancer Other MATERNAL COUSIN Diabetes Brother other (RENAL DIS) Sister DIALYSIS FOR 23 YRS, Social History Tobacco Use Smoking status: Former Smokeless tobacco: Never Tobacco comments: quit at least 10 years ago Substance and Sexual Activity Alcohol use: Yes Comment: 2 times a year Drug use: No Sexual activity: Yes control/protection: Surgical Comment: on premarin so does have rare spotting ALLERGIES Allergen Reactions Bactrim [Sulfametho* Rash Review of Systems All other systems reviewed and are negative. Physical Exam Vitals [02/07/24 1117] BP Pulse Temp Temp src Resp SpO2 Weight Height (!) 214/101 60 36.9 ?C (98.4 ?F) Oral 18 100 % 86.2 kg (190 lb) 1.626 m (5' 4") Physical Exam Vitals and nursing note reviewed. Constitutional: General: She is not in acute distress. Appearance: She is ill-appearing. She is not toxic-appearing or diaphoretic. HENT: Right Ear: Tympanic membrane and ear canal normal. Left Ear: Tympanic membrane and ear canal normal. Nose: Congestion and rhinorrhea present. Mouth/Throat: Mouth: Mucous membranes are moist. Pharynx: Oropharynx is clear. Eyes: Conjunctiva/sclera: Conjunctivae normal. Pupils: Pupils are equal, round, and reactive to light. Cardiovascular: Rate and Rhythm: Normal rate and regular rhythm. Pulses: Normal pulses. Heart sounds: Normal heart sounds. Pulmonary: Effort: Pulmonary effort is normal. No respiratory distress. Breath sounds: Normal breath sounds. Chest: Chest wall: Tenderness (Fully reproducible tenderness with palpation of the left chest wall) present. Abdominal: General: Abdomen is flat. Bowel sounds are normal. There is no distension. Palpations: Abdomen is soft. Tenderness: There is no abdominal tenderness. Musculoskeletal: General: No tenderness. Normal range of motion. Right lower leg: No edema. Left lower leg: No edema. Skin: General: Skin is warm and dry. Capillary Refill: Capillary refill takes less than 2 seconds. Findings: No rash. Neurological: Mental Status: She is alert and oriented to person, place, and time. Diagnostic Testing ED Labs Ordered and Reviewed COMPLETE BLOOD COUNT AND DIFFERENTIAL - Abnormal; Notable for the following components: Result Value Ref Range WBC 12.12 (*) 3.70 - 11.00 k/uL MPV 8.2 (*) 9.0 - 12.7 fL Abs Lymph (Normal + Reactive) 5.94 (*) 1.00 - 4.00 k/uL Abs Weston 0.97 (*) <0.87 k/uL All other components within normal limits Narrative: This is an appended report. These results have been appended to a previously verified report. COMPREHENSIVE METABOLIC PANEL - Abnormal; Notable for the following components: Bilirubin, (more content not included)... Normal [facility] ED Triage Noteon 02-07-2024 ED Triage Note HNO ID: [id number] Author: GURDEEP HAMLIN PA-C Service: ? Author Type: Physician [employer]shore [employer]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 Type: ED Triage Notes Filed: 02/17/2024 19:18 Note Text: ED TRIAGE PROVIDER NOTE Patient Name: Nadira Benítez Service Date: 02/07/24 BRIEF HPI: This is a 68 year old female who presents to the ED with: Had URI symptoms, cough, congestion. Symptoms still down but she still feels like she is short of breath, cannot get a deep breath. She is also developed some left-sided chest discomfort, has been going on constant for 4 days now. Does have a cardiac history, history of CABG. No fevers, no chills, no other complaints associated with this. BRIEF EXAM: Dry wheezing upper lobes, stable vital signs, no acute respiratory distress INITIAL WORKUP AND DECISION MAKING: Orders Placed This Encounter XR CHEST 1V FRONTAL Complete Blood Count and Differential Comprehensive Metabolic Panel Magnesium Blood High Sensitivity Troponin I with Reflex for ED Chest Pain ECG Complete w Interpretation - hand to Attending for review (EKG) SIGNATURE: Gurdeep Hamlin PA-C Normal [facility] HIGH SENSITIVITY TROPONIN I (INITIAL)on 02-07-2024 Tropinin I.cardiac panel High sensitivity method <2.5 Normal 0.0-34.0 [facility] Comment on above: Order Comment: Chinedu moise Type: BLOOD SPECIMEN Ordering Facility: [facility] Address: [address] [place] [address] Performed By: #### 2 4323-8, 27316-4, [id number] #### [facility] CLIA [id number] [address] [place] [address] [place] HIGH SENSITIVITY TROPONIN I (SECOND)on 02-07-2024 Tropinin I.cardiac panel High sensitivity method 2.9 pg/mL Normal 0.0-34.0 [facility] Comment on above: Order Comment: Chinedu moise Type: BLOOD SPECIMEN Ordering Facility: [facility] Address: [address] [place], [place] [address] Performed By: #### H [id number] #### [facility] CLIA [id number] [address] [place], [place] [address] [place] Magnesium SerPl-mCncon 02-06 Magnesium [Mass/Vol] 2.0 mg/dL Normal 1.6-2.6 [facility] Comment on above: Order Comment: Chinedu moise Type: BLOOD SPECIMEN Ordering Facility: [facility] Address: [address] [place], [place] [address] Performed By: #### 2 4323-8, 59637-1, [id number] #### [facility] CLIA [id number] [address] [place], [place] [address] [facility] PATHOLOGIST INTERPRETATION C BC AND DIFFERENTIAL (LAB REFLEX ORDER-NO BILL)on 02-07-2024 Director Of Early Childhood review Sumanth (Unsp spec) [Interp] Reviewed by Chad Whitley MD [facility] Comment on above: Order Comment: Chinedu moise Type: BLOOD SPECIMEN Ordering Facility: [facility] Address: [address] [place] [address] Performed By: #### 5 7021-8, [id number] #### [facility] CLIA [id number] [address] [place], [place] [address] [facility] STAFF REVIEW, CBCDIF [facility] Comment on above: Order Comment: Chinedu moise Type: BLOOD SPECIMEN Ordering Facility: [facility] Address: [address] [place] [address] Result Comment: Lymp hocytic leukocytosis with reactive/atypical forms and occasional smudge cells. Red blood cells appear normal in number and morphology. Platelets appear essentially normal in number morphology. Review of the patient's prior CBCs shows no history of persistent lymphocytosis or leukocytosis. Per ED notes, patient reports recent history of illness. The findings could be compatible with reactive process; however, given the patient's age, lymphoproliferative disorders are not entirely excluded. Clinical correlation is required with further evaluation, possibly including repeat CBC in a few weeks to ensure resolution of lymphocytosis and atypia and/or flow cytometric evaluation of peripheral blood, as clinically indicated. Performed By: #### 5 7021-8, [id number] #### [facility] CLIA [id number] [address] [place] [address] [facility] [place] XR CHEST 1V FRONTALon 2023 XR CHEST 1V FRONTAL * * *Final Report* * * DATE OF EXAM: Feb 07 2024 11:38AM [id number] [id number] - XR CHEST 1V FRONTAL / PROCEDURE REASON: Chest pain * * * * Physician Interpretation * * * * EXAMINATION: CHEST RADIOGRAPH (SINGLE VIEW AP OR PA) CLINICAL HISTORY: Chest pain MQ: XC1_5 Comparison: 01/31/2020 RESULT: Lines, tubes, and devices: None. Lungs and pleura: The costophrenic angles are clear. No acute infiltrates or congestion is seen. There is no pneumothorax. Cardiomediastinal silhouette: The cardiac silhouette is normal in size. The aorta is atherosclerotic. Other: The patient is postopen heart surgery. There are postsurgical changes in the cervical spine. IMPRESSION: No acute abnormalities. Molder Sweep: PSCB Transcribe Date/Time: Feb 07 2024 11:48A Dictated by : INGA WHITNEY MD This examination was interpreted and the report reviewed and electronically signed by: INGA WHITNEY MD on Feb 07 2024 11:49AM EST [id number] Normal [facility] .Auto Diffon 09-27-2023 Basophil, Absolute 0.0 10 3/mcL Normal 0.0-0.3 [facility] ([place]) Comment on above: Performed By: #### C BC, GFR, FE, BMP, ANEU, B12, ADIFF, VIDH #### [address] [address] Basophils/100 WBC (Bld) 0.3 % Normal 0.0-2.5 A [facility] ([place]) Comment on above: Performed By: #### C BC, GFR, FE, BMP, ANEU, B12, ADIFF, VIDH #### [address] [address] Eosinophil, Absolute 0.0 10 3/mcL Normal 0.0-0.7 [facility] ([place] Comment on above: Performed By: #### C BC, GFR, FE, BMP, ANEU, B12, ADIFF, VIDH #### [address] [address] Eosinophils/100 WBC (Bld) 0.5 % Normal 0.0-6.0 [facility] ([place] Comment on above: Performed By: #### C BC, GFR, FE, BMP, ANEU, B12, ADIFF, VIDH #### [address] [address] Lymphocyte, Absolute 3.6 10 3/mcL Normal 0.9-4.3 [facility] ([place] Comment on above: Performed By: #### C BC, GFR, FE, BMP, ANEU, B12, ADIFF, VIDH #### [address] [address] Lymphocytes/100 WBC (Bld) 41.5 % High 20.0-40.0 [facility] ([place] Comment on above: Performed By: #### C BC, GFR, FE, BMP, ANEU, B12, ADIFF, VIDH #### [address] [address] Monocyte, Absolute 0.4 10 3/mcL Normal 0.1-1.4 [facility] ([place] Comment on above: Performed By: #### C BC, GFR, FE, BMP, ANEU, B12, ADIFF, VIDH #### [address] [address] Monocytes/100 WBC (Bld) 4.9 % Normal 2.0-13.0 [facility] ([place] Comment on above: Performed By: #### C BC, GFR, FE, BMP, ANEU, B12, ADIFF, VIDH #### [address] [address] Neutrophils/100 WBC (Bld) 52.8 % Normal 50.0-75.0 [facility] ([place] Comment on above: Performed By: #### C BC, GFR, FE, BMP, ANEU, B12, ADIFF, VIDH #### [address] [address] .GFRon 09-27-2023 GFR >60 Normal [facility] ([place]) Comment on above: Result Comment: GFR Population mean for , Non- Americans Ages 20-29 = 116 mL/min/1.73 sq.m. Ages 30-39 = 107 mL/min/1.73 sq.m. Ages 40-49 = 99 mL/min/1.73 sq.m. Ages 50-59 = 93 mL/min/1.73 sq.m. Ages 60-69 = 85 mL/min/1.73 sq.m. Ages 70+ = 75 mL/min/1.73 sq.m. Chronic Kidney Disease: Less than 60 mL/min/1.73 square meters End Stage Renal Disease: Less than 15 mL/min/1.73 square meters Performed By: #### C BC, GFR, FE, BMP, ANEU, B12, ADIFF, VIDH #### [address] [address] GFR Non- >60 Normal [facility] ([place] Comment on above: Result Comment: GFR Population mean for , Non- Americans Ages 20-29 = 116 mL/min/1.73 sq.m. Ages 30-39 = 107 mL/min/1.73 sq.m. Ages 40-49 = 99 mL/min/1.73 sq.m. Ages 50-59 = 93 mL/min/1.73 sq.m. Ages 60-69 = 85 mL/min/1.73 sq.m. Ages 70+ = 75 mL/min/1.73 sq.m. Chronic Kidney Disease: Less than 60 mL/min/1.73 square meters End Stage Renal Disease: Less than 15 mL/min/1.73 square meters Performed By: #### C BC, GFR, FE, BMP, ANEU, B12, ADIFF, VIDH #### [address] [address] .NEUABSon 09-27-2023 Neutrophil, Absolute 4.6 10 3/mcL Normal 2.3-8.1 [facility] ([place] Comment on above: Performed By: #### C BC, GFR, FE, BMP, ANEU, B12, ADIFF, VIDH #### [address] [address] B12on 09-27-2023 Cobalamin (Vitamin B12) [Mass/Vol] 380 pg/mL Normal 211-911 [facility] ([place] Comment on above: Performed By: #### C BC, GFR, FE, BMP, ANEU, B12, ADIFF, VIDH #### [address] [address] BMPon 09-27-2023 BUN/Creatinine Ratio 14.7 ratio Normal 10.0-22.0 [facility] ([place] Comment on above: Performed By: #### C BC, GFR, FE, BMP, ANEU, B12, ADIFF, VIDH #### [address] [address] Calcium [Mass/Vol] 9.6 mg/dL Normal 8.7-10.4 [facility] ([place]) Comment on above: Performed By: #### C BC, GFR, FE, BMP, ANEU, B12, ADIFF, VIDH #### [address] [address] Chloride [Moles/Vol] 106 mmol/L Normal 98-110 [facility] ([place]) Comment on above: Performed By: #### C BC, GFR, FE, BMP, ANEU, B12, ADIFF, VIDH #### [address] [address] CO2 [Moles/Vol] 23 mmol/L Normal 22-32 [facility] ([place] Comment on above: Performed By: #### C BC, GFR, FE, BMP, ANEU, B12, ADIFF, VIDH #### [address] [address] Creatinine [Mass/Vol] 0.68 mg/dL Normal 0.50-1.20 [facility] ([place] Comment on above: Performed By: #### C BC, GFR, FE, BMP, ANEU, B12, ADIFF, VIDH #### [address] [address] Electrolyte Balance 11.0 mEq/L Normal 4.0-15.0 [facility] ([place]) Comment on above: Performed By: #### C BC, GFR, FE, BMP, ANEU, B12, ADIFF, VIDH #### [address] [address] Glucose [Mass/Vol] 109 mg/dL Normal 82-115 [facility] ([place] Comment on above: Performed By: #### C BC, GFR, FE, BMP, ANEU, B12, ADIFF, VIDH #### [address] [address] Potassium [Moles/Vol] 4.0 mmol/L Normal 3.5-5.0 [facility] ([place] Comment on above: Performed By: #### C BC, GFR, FE, BMP, ANEU, B12, ADIFF, VIDH #### [place] [id number] Sodium [Moles/Vol] 140 mmol/L Normal 136-145 [facility] ([place] Comment on above: Performed By: #### C BC, GFR, FE, BMP, ANEU, B12, ADIFF, VIDH #### [place] [id number] Urea nitrogen [Mass/Vol] 10.0 mg/dL Normal 8.0-22.0 [facility] ([place] Comment on above: Performed By: #### C BC, GFR, FE, BMP, ANEU, B12, ADIFF, VIDH #### [place] [id number] CBCon 09-27-2023 Erythrocyte distribution width (RBC) [Ratio] 14.5 % Normal 11.5-15.5 [facility] ([place] Comment on above: Performed By: #### C BC, GFR, FE, BMP, ANEU, B12, ADIFF, VIDH #### [place] [phone] Hematocrit (Bld) [Volume fraction] 32.4 % Low 34.0-46.0 [facility] ([place] Comment on above: Performed By: #### C BC, GFR, FE, BMP, ANEU, B12, ADIFF, VIDH #### [place] [id number] Hgb 11.6 G/dL Low 12.0-16.0 [facility] ([place] Comment on above: Performed By: #### C BC, GFR, FE, BMP, ANEU, B12, ADIFF, VIDH #### [place] [id number] MCH (RBC) [Entitic mass] 30.9 pg Normal 27.0-33.0 [facility] ([place] Comment on above: Performed By: #### C BC, GFR, FE, BMP, ANEU, B12, ADIFF, VIDH #### [address] [address] MCHC 35.8 G/dL Normal 32.0-36.0 [facility] ([place] Comment on above: Performed By: #### C BC, GFR, FE, BMP, ANEU, B12, ADIFF, VIDH #### [place] [address] MCV (RBC) [Entitic vol] 86.5 fL Normal 80.0-99.0 A [facility] ([place] Comment on above: Performed By: #### C BC, GFR, FE, BMP, ANEU, B12, ADIFF, VIDH #### [place] [address] Platelet 210 10 3/mcL Normal 150-450 [facility] ([place] Comment on above: Performed By: #### C BC, GFR, FE, BMP, ANEU, B12, ADIFF, VIDH #### [place] [address] Platelet mean volume (Bld) [Entitic vol] 7.4 fL Normal 6.6-10.5 [facility] ([place] Comment on above: Performed By: #### C BC, GFR, FE, BMP, ANEU, B12, ADIFF, VIDH #### [place] [address] RBC 3.75 10 6/mcL Low 4.10-5.30 [facility] ([place] Comment on above: Performed By: #### C BC, GFR, FE, BMP, ANEU, B12, ADIFF, VIDH #### [place] [address] WBC 8.7 10 3/mcL Normal 4.5-10.8 [facility] ([place] Comment on above: Performed By: #### C BC, GFR, FE, BMP, ANEU, B12, ADIFF, VIDH #### [place] [address] FEon 09-27-2023 Iron [Mass/Vol] 80 ug/dL Normal 50-170 [facility] ([place] Comment on above: Performed By: #### C BC, GFR, FE, BMP, ANEU, B12, ADIFF, VIDH #### [facility] [address] [place] [address] MALBRon 09-27-2023 U Creatinine 139.6 mg/dL Normal [facility] ([place] Comment on above: Performed By: #### M ALBR #### [address] [address] U Microalb 362 mcg/dL Normal [facility] ([place] Comment on above: Performed By: #### M ALBR #### [address] [address] U Ratio Alb/Cre 2.6 mcg/mg Normal 0.0-24.9 [facility] ([place] Comment on above: Performed By: #### M ALBR #### [address] [address] VIDHon 09-27-2023 Vit. D 25-Hydroxy 43.6 ng/mL Normal [facility] ([place] Comment on above: Result Comment: Inte rpretive Values Based on Total 25(OH)D: Severe Deficiency <20 ng/mL Mild to Moderate Deficiency 20-30 ng/mL Optimum Levels 30-100 ng/mL Toxicity Possible >100 ng/mL Performed By: #### C BC, GFR, FE, BMP, ANEU, B12, ADIFF, VIDH #### [address] [address] No Panel InformationOrdered By: Mychal Steinberg on 03-16-2023 Giardia Antigen (JEAN) [facility] Ova and parasitesOrdered By: Mychal Steinberg on 03-16-2023 Ova and parasites identified LM Nom (Unsp spec) [facility] Basophil percentageOrdered B y: Mychal Steinberg on 03-10-2023 Basophil percentage < 1.0 mg/dL 0.55-1.02 [facility] [place] Laboratory - Microbiology an d Antimicrobial susceptibilityOrdered By: Mychal Steinberg on 03-10-2023 G. lamblia Ag IA.rapid Ql (Stl) [facility] No Panel InformationOrdered By: Mychal Steinberg on 03-10-2023 Miscellaneous Test See comment [facility] Comment on above: TEST RESULTS LIMITS Stool CultureSalmonella/Shigella Screen Final reportResult 1No Salmonella or Shigella recovered.Campylobacter Culture Final reportResult 1No Campylobacter species isolated.E coli Shiga Toxin EIA Negative Negative TESTING PERFORMED AT [facility]. ORIGINAL REPORT ON FILE IN LAB CONTAINS ADDITIONAL TEST SITE INFORMATION. Stool Calprotectin 18 ug/g 0-120 [facility] Comment on above: Concentration Interp retation Follow-Up< 5 - 50 ug/g Normal None>50 -120 ug/g Borderline Re-evaluate in 4-6 weeks >120 ug/g Abnormal Repeat as clinically indicatedPerformed at: [facility] [address] [id number] Director: Cuauhtemoc Ya PhD, Phone: [phone] at: [facility] Lab[address] [id number] Director: Yazmin May MD, Phone: [phone] Stool Neutral Fats Normal . [facility] Comment on above: Normal (<60 Droplets /HPF) Stool Pancreatic Elastase 167 >200 [facility] Comment on above: Result Units: ug Lilly st./g Severe Pancreatic Insufficiency: <100 Moderate Pancreatic Insufficiency: 100 - 200 Normal: >200 Bedside Estimated GFR (eGFR) > 60.0000 mL/min >60 [facility] Ova and parasitesOrdered By: Mychal Steinberg on 03-10-2023 Ova and parasites identified LM Nom (Unsp spec) [facility] Qualitative fecal fat or lip idsOrdered By: Mychal Steinberg on 03-10-2023 Fat Ql (Stl) Normal . [facility] Comment on above: Normal (<100 Droplet s/HPF) Stool Helicobacter pylori an tigen detection by immunoassayOrdered By: Mychal Steinberg on 03-10-2023 H. pylori Ag IA Ql (Stl) Negative Negative [facility] Comment on above: Performed at: [address] [id number] Director: Yazmin May MD, Phone: [phone] Absolute lymphocyte countOrd ered By: Mychalkam Steinberg on 01-21-2023 Lymphocytes Auto (Unsp spec) [#/Vol] 3.14 10*3/uL 0.83-4.51 [facility] Albumin Elph [Mass/Vol]Order ed By: Mychal Steinberg on 01-21-2023 Albumin [Mass/Vol] 4.2 g/dL 2.9-4.4 [facility] Atypical perinuclear antineu trophil cytoplasmic antibodies measurementOrdered By: Mychal Steinberg on 01-21-2023 Neutrophil cytoplasmic Ab.perinuclear.atypical IF (S) [Titer] <1:20 titer Neg:<1:20 [facility] Comment on above: The atypical pANCA p attern has been observed in asignificant percentage of patients with ulcerative colitis,primary sclerosing cholangitis and autoimmune hepatitis. Basophil percentageOrdered B y: Mychalkam Steinberg on 01-21-2023 Amylase [Catalytic activity/Vol] 46 U/L 25-115 [facility] Basophil percentage 3.5 mg/dL 2.5-4.9 [facility] Basophil percentage < 0.2 AI 0.0-0.9 [facility] Basophils/100 WBC (Bld) 0.2 % 0-1 [facility] Eosinophils/100 WBC (Bld) 0.2 % 0-5 [facility] Neutrophils (Bld) [#/Vol] 4.6 10*3/uL 2.0-7.7 [facility] Neutrophils/100 WBC (Bld) 55.7 % 47-70 [facility] WBC (Bld) [#/Vol] 8.3 10*3/uL 4.4-11.0 [facility] Blood erythrocytes count (nu mber/volume)Ordered By: Mychal Steinberg on 01-21-2023 RBC (Bld) [#/Vol] 4.61 10*6/uL 4.2-5.4 [facility] Blood hemoglobin measurement (mass/volume)Ordered By: Mychal Steinberg on 01-21-2023 Hemoglobin (Bld) [Mass/Vol] 13.9 g/dL 12.0-15.0 [facility] Blood lymphocytes/100 leukoc ytesOrdered By: Mychal Steinberg on 01-21-2023 Lymphocytes/100 WBC (Bld) 37.6 % 19-41 [facility] Blood monocytes/100 leukocyt esOrdered By: Mychal Steinberg on 01-21-2023 Monocytes/100 WBC (Bld) 6.1 % 0-10 [facility] Blood platelet mean volumeOr dered By: Mychal Steinberg on 01-21-2023 Platelet mean volume (Bld) [Entitic vol] 9.0 fL 6.2-12.0 [facility] Determination of erythrocyte mean corpuscular volume (MCV)Ordered By: Mychal Steinberg on 01-21-2023 MCV (RBC) [Entitic vol] 82.4 fL 81-99 [facility] Erythrocyte sedimentation ra teOrdered By: Mychal Steinberg on 01-21-2023 ESR (Bld) [Velocity] mm/h 0-30 [facility] Hematocrit Auto (Bld) [Volum e fraction]Ordered By: Mychal Steinberg on 01-21-2023 Hematocrit (Bld) [Volume fraction] 38.0 % 37-47 [facility] Interpretation of serum or p lasma protein pattern by immunofixation (narrative resultOrdered By: Mychal Steinberg on 01-21-2023 Protein Fractions Immunofixation Sumanth [Interp] See comment [facility] Comment on above: Result: Not Observed Laboratory - Chemistry and C hemistry - challengeOrdered By: Mychal Steinberg on 01-21-2023 Cobalamin (Vitamin B12) [Mass/Vol] 311 pg/mL 211-911 [facility] Free T4 [Mass/Vol] 0.98 ng/dL 0.76-1.46 [facility] Lipase [Catalytic activity/Vol] 44 U/L 13-75 [facility] Comment on above: Please note:LIPASE r evised reference range effective 22. New Lipase methodology. Expected to produce lower values than the previous assay method. NEW Reference Range: 13 - 75 U/L Magnesium [Mass/Vol] 2.3 mg/dL 1.6-2.6 [facility] Laboratory - Hematology and Cell countsOrdered By: Mychal Steinberg on 01-21-2023 Erythrocyte distribution width (RBC) [Entitic vol] 39.1 fL 35.1-43.9 [facility] Erythrocyte distribution width (RBC) [Ratio] 13.1 % 11.6-14.6 [facility] Immature granulocytes/100 WBC (Bld) 0.200 % 0.0-0.9 [facility] Comment on above: IG% - Immature Granu locytes (promyelocytes, myelocytes and metamyelocytes) > 1% indicates that a LEFT SHIFT is Present. MCH (RBC) [Entitic mass] 30.2 pg 27.0-32.0 [facility] Nucleated RBC/100 WBC (Bld) [Ratio] 0 % 0-5 [facility] MCHC Auto (RBC) [Mass/Vol]Or dered By: Mychal Steinberg on 01-21-2023 MCHC (RBC) [Mass/Vol] 36.6 g/dL 32-36 [facility] No Panel InformationOrdered By: Mychal Steinberg on 01-21-2023 Addendum Document Comment . [facility] Comment on above: Protein electrophore sis scan will follow via computer,mail, or mold maker helper delivery. Centromere B Antibody <0.2 AI 0.0-0.9 [facility] Endomysial IgA Antibody Negative Negative [facility] Free Triiodothyronine (T3) pg/dL 2.4 pg/mL 2.18-3.98 [facility] Immunoglobulin E 17 IU/mL 6-495 [facility] Comment on above: Performed at: [address] [id number] Director: Cuauhtemoc Ya PhD, Phone: [phone] at: [facility] [address] [id number] Director: Yazmin May MD, Phone: [phone] Miscellaneous Test See comment [facility] Comment on above: TEST RESULT LIMITSIB D Expanded Panel Lady 24 units 0-50 Negative <45 Equivocal 45 - 50 Positive >50 ACCA 17 units 0-90 Negative <80 Equivocal 80 - 90 Positive >90 ALCA 11 units 0-60 Negative <55 Equivocal 55 - 60 Positive >60 AMCA 13 units 0-100 Negative < 90 Equivocal 90 - 100 Positive >100 This test was developed and its performance characteristics determined by [facility]. It has not been cleared or approved by the Food and Drug Administration. The FDA has determined that such clearance or approval is not necessary.Atypical pANCA Negative Negative Comments Pattern is not suggestive of Inflammatory Bowel Disease ____ TESTING PERFORMED AT [facility]. ORIGINAL REPORT ON FILE IN LAB CONTAINS ADDITIONAL TEST SITE INFORMATION. BUSINESS PROCESS MANAGER Antibody 0.6 AI 0.0-0.9 [facility] Thyroid Stimulating Hormone (TSH) 0.80 uIU/mL 0.358-3.74 [facility] Platelets bldOrdered By: Praneeth Steinberg on 01-21-2023 Platelets (Bld) [#/Vol] 192 10*3/uL 150-450 [facility] Serum DNA double strand anti body assay (units/volume)Ordered By: Mychal Steinberg on 01-21-2023 DNA double strand Ab Qn (S) [IU]/mL 0-9 [facility] Comment on above: Negative <5 Equivoca l 5 - 9 Positive >9 Serum Bety-1 antibody assay (u nits/volume)Ordered By: Mychal Steinberg on 01-21-2023 Bety-1 extractable nuclear Ab Qn (S) <0.2 AI 0.0-0.9 [facility] Serum Scl-70 extractable nuc lear antibody assay (units/volume)Ordered By: Mychal Steinberg on 01-21-2023 SCL-70 extractable nuclear Ab Qn (S) <0.2 AI 0.0-0.9 [facility] Serum Ortez extractable nucl ear antibody detectionOrdered By: Mychal Steinberg on 01-21-2023 Ortez extractable nuclear Ab Ql (S) <0.2 AI 0.0-0.9 [facility] Serum [id number] measu rement by electrophoresisOrdered By: Mychal Steinberg on 01-21-2023 Alpha 1 globulin Elph [Mass/Vol] 0.2 g/dL 0.0-0.4 [facility] Alpha 1 globulin Elph [Mass/Vol] 0.5 g/dL 0.4-1.0 [facility] Serum classic neutrophil cyt oplasmic antibody assay (units/volume)Ordered By: Mychal Steinberg on 01-21-2023 Neutrophil cytoplasmic Ab.classic Qn (S) <1:20 titer Neg:<1:20 [facility] Serum globulin measurement ( mass/volume)Ordered By: Mychal Steinberg on 01-21-2023 Globulin (S) [Mass/Vol] 2.3 g/dL 2.2-3.9 [facility] Serum or plasma C reactive p rotein measurement (mass/volume)Ordered By: Mychal Steinberg 01-21-2023 CRP [Mass/Vol] mg/L 0.0-3.0 [facility] Comment on above: C-Reactive Protein ( CRP) provides useful information for thediagnosis, therapy and monitoring of inflammatory processesand associated diseases. For the evaluation of Relative Riskfor Cardiovascular Disease, a High Sensitivity CRP (HSCRP)should be ordered. Serum or plasma IgA measurem ent (mass/volume)Ordered By: Mychal Steinberg on 01-21-2023 IgA [Mass/Vol] 120 mg/dL 87-352 [facility] Serum or plasma IgG measurem ent (mass/volume)Ordered By: Mychal Steinberg 01-21-2023 IgG [Mass/Vol] 735 mg/dL [phone] [facility] Serum or plasma IgM measurem ent (mass/volume)Ordered By: Mychal Steinberg 01-21-2023 IgM [Mass/Vol] 53 mg/dL 26-217 [facility] Serum or plasma beta globuli n measurement by electrophoresis (mass/volume)Ordered By: Mychal Steinberg on 01-21-2023 Beta globulin Elph [Mass/Vol] 0.9 g/dL 0.7-1.3 [facility] Serum or plasma calcitriol m easurement (mass/volume)Ordered By: Mychal Steinberg on 01-21-2023 1,25-dihydroxyvitamin D3 [Mass/Vol] 74.8 pg/mL 24.8-81.5 [facility] Comment on above: Performed at: [facility] [address] [id number] Director: Cuauhtemoc Ya PhD, Phone: [phone] at: [facility] [address] [id number] Director: Yazmin May MD, Phone: [phone] Serum or plasma folate measu rement (mass/volume)Ordered By: Mychal Steinberg on 01-21-2023 Folate [Mass/Vol] 35.90 ng/mL 3.1-55.4 [facility] Serum or plasma gamma globul in measurement by electrophoresis (mass/volume)Ordered By: Mychal Steinberg on 01-21-2023 Gamma globulin Elph [Mass/Vol] 0.7 g/dL 0.4-1.8 [facility] Serum or plasma gastrin lilliana urement (mass/volume)Ordered By: Mychal Steinberg on 01-21-2023 Gastrin [Mass/Vol] 430 pg/mL 0-115 [facility] Comment on above: Siemens Immulite 200 0 Immunochemiluminometric assay (ICMA)Values obtained with different assay methods or kits cannotbe used interchangeably. Results cannot be interpreted asabsolute evidence of the presence or absence of malignantdisease. Serum or plasma immunoelectr ophoresis interpretation (nominal result)Ordered By: Mychal Steinberg on 01-21-2023 Interpretation IEP [Interp] Comment . [facility] Comment on above: No monoclonality det ected. Serum perinuclear neutrophil cytoplasmic antibody titer by immunofluorescenceOrdered By: Mychal Steinberg on 01-21-2023 Neutrophil cytoplasmic Ab.perinuclear IF (S) [Titer] <1:20 titer Neg:<1:20 [facility] Comment on above: The presence of posi tive fluorescence exhibiting P-ANCA orC-ANCA patterns alone is not specific for the diagnosis ofWegener's Granulomatosis (WG) or microscopic polyangiitis.Decisions about treatment should not be based solely onANCA IFA results. The International ANCA Group Consensusrecommends follow up testing of positive sera with both WY-3 and MPO-ANCA enzyme immunoassays. As many as 5% serumsamples are positive only by EIA. Ref. AM J Clin [id number];111:507-513. Serum tissue transglutaminas e IgA antibody assay (units/volume)Ordered By: Mychal Steinberg on 01-21-2023 tTG IgA Qn (S) <2 U/mL 0-3 [facility] Comment on above: Negative 0 - 3 Weak Positive 4 - 10 Positive >10 Tissue Transglutaminase (tTG) has been identified as the endomysial antigen. Studies have demonstr- ated that endomysial IgA antibodies have over 99% specificity for gluten sensitive enteropathy. Thin prep Papanicolaou smear with manual screeningOrdered By: Mychal Steinberg on 01-21-2023 Thin prep Papanicolaou smear with manual screening 1.9 0.7-1.7 [facility] Total protein bloodOrdered B y: Mychal Steinberg on 01-21-2023 Protein [Mass/Vol] 6.5 g/dL 6.0-8.5 [facility] CNOVon 01-10-2023 CNOV Office Visit (UCWSTR ) -------- NADIRA BENÍTEZ ([id number]) 1955 F T Date Time Provider Department 01/10/23 1:15 PM HUMPHREY RILEY [facility] During your visit today, we recorded the following information about you: Temperature Pulse Respiration Blood pressure 99 degrees 69/minute 18/minute 123/84 Weight 87.5 kg Humphrey Riley APRN.DEVELOPMENT AND HOUSING DIRECTOR 01/10/2023 1:29 PM Signed Patient came in with complaints of lower abdominal pain. Patient says is increasing intense intensity over the last few days. Patient says she has been dealing with significant amounts of diarrhea and nausea and stomach pain for few months. Patient says her doctor did place her on medications for the nausea and diarrhea. Patient says they do not seem to be helping pain seems to be intensifying. Patient is lost 15 pounds recently due to not being able to eat. At this time patient is being referred to the emergency room for full evaluation. Patient is extremely tender on that right lower quadrant. Allergies As of Date: 01/10/2023 Noted Allergy Reaction BACTRIM (SULFAMETHOXAZOLE-TRIMET H*12/15/2004 2 - Rash Date Reviewed: 01/10/2023 Reviewed by: Becka Perez LPN - Fully Assessed 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: Abdominal Pain [1] Cmt: X 2 months, has gastro appt, Jan 21, 's daily Primary Visit Diagnosis:Right lower quadrant abdominal pain [R10.31] Prescriptions as of 01/10/2023 - methotrexate 2.5 mg tablet Take 2.5 mg by mouth one time a week. 10 tabs PO Weekly - diphenoxylate-atropine (LOMOTIL) 2.5-0.025 mg per tablet Take 1 tablet by mouth as needed. - ondansetron orally disintegrating (ZOFRAN ODT) 4 mg disintegrating tablet Take 1 tablet by mouth as needed. - celecoxib (CELEBREX) 200 mg capsule Take 200 mg by mouth twice daily. - predniSONE (DELTASONE) 10 mg tablet Take 4 tabs daily for 3 days, then 2 tabs daily for 3 days, then 1 tab daily for 3 days with food. - metoprolol tartrate, short acting, (LOPRESSOR) 50 mg tablet Take 1.5 tablets by mouth twice daily. - metoprolol tartrate, short acting, (LOPRESSOR) 50 mg tablet Take 1.5 tablets by mouth twice daily. - ascorbic acid, vitamin C, (VITAMIN C) 500 mg tablet Take 1 tablet by mouth twice daily before meals. - aspirin 81 mg chewable tablet Take Aspirin 162 mg (2 tablets) daily until 01/16 when starting Plavix, then decrease Aspirin to 81 mg daily. - ferrous sulfate 325 mg (65 mg iron) tablet Take 1 tablet by mouth once daily. - acetaminophen (TYLENOL) 500 mg tablet Take 2 tablets by mouth every 6 hours as needed for Pain. - hydrOXYchloroQUINE (PLAQUENIL) 200 mg tablet Take 200 mg by mouth twice daily. - methotrexate 2.5 mg tablet Take 8 tablets by mouth once each week. - folic acid 1 mg tablet Take 1 tablet by mouth once daily. - pyridoxine, vitamin B6, (VITAMIN B-6) 100 mg tablet Take 25 mg by mouth once daily. - DULoxetine (CYMBALTA) 30 mg capsule Take 30 mg by mouth once daily. - gabapentin (NEURONTIN) 600 mg tablet Take 1,200 mg by mouth three times daily. - ALENDRONATE SODIUM (FOSAMAX ORAL) Take 70 mg by mouth once each week. - atorvastatin (LIPITOR) 80 mg tablet Take 80 mg by mouth once daily. - pantoprazole DR (PROTONIX) 20 mg tablet Take 20 mg by mouth once daily. - zolpidem (AMBIEN) 10 mg tab Take by mouth at bedtime as needed. - ALPRAZolam (XANAX) 0.5 mg tablet Take 0.5 mg by mouth three times daily as needed for Anxiety. - Cholecalciferol, Vitamin D3, 25 mcg (1,000 unit) cap Take 2,000 Units by mouth once daily. - cyanocobalamin (VITAMIN B-12) 500 mcg tablet Take by mouth once daily. - magnesium oxide 400 mg cap Take by mouth once daily. - aspirin(ECOTRIN LOW STRENGTH 81 MG TAB) Take one(1) tablet daily. - calcium carbonate/vitamin d3(CALCIUM 500 WITH VITAMIN D 500 MG (1,250 MG)-200 UNIT TAB) Take one(1) tablet two(2) times daily. - ALL PURPOSE MULTIVITAMIN-MIN ORAL TAB Take one(1) tablet daily. Problem List As Of Date 01/10/2023 Noted Resolved CARDIAC DYSRHYTHMIA NOS [I49.9] DYSTHYMIC DISORDER [F34.1] ANEMIA NOS [D64.9] GENERAL OSTEOARTHROSIS [M15.9] LUMBAGO [M54.50] Sprain of foot, unspecified site [S93.609A] 08/26/2008 01/10/2020 Seronegative rheumatoid arthritis (HCC) [M06.00]08/17/2016 Angina of effort (HCC) [I20.89] 12/03/2019 01/10/2020 CAD (coronary artery disease) [I25.10] 12/25/2019 Obesity, Class I, BMI 30-34.9 [E66.9] 12/27/2019 Stenosis of right carotid artery [I65.21] 12/31/2019 Hx of CABG [Z95.1] 12/31/2019 Right knee pain [M25.561] 01/10/2020 Encounter Status:Closed by HUMPHREY RILEY on 01/10/23 Normal [facility] Basophil percentageOrdered B y: Blu Albert on 11-16-2022 Chloride [Moles/Vol] 109 mmol/L 98-107 [facility] Glucose [Mass/Vol] 130 mg/dL 74-106 [facility] Comment on above: Fasting Glucose resu lt greater than or equal to 126 mg/dL suggests DIABETES MELLITUS per A.D.A. criteria. Potassium [Moles/Vol] 3.5 mmol/L 3.5-5.1 [facility] Sodium [Moles/Vol] 140 mmol/L 136-145 [facility] WBC (Bld) [#/Vol] 8.2 10*3/uL 4.4-11.0 [facility] Blood erythrocytes count (nu mber/volume)Ordered By: Blu Albert on 11-16-2022 RBC (Bld) [#/Vol] 4.21 10*6/uL 4.2-5.4 [facility] Blood hemoglobin measurement (mass/volume)Ordered By: Blu Albert on 11-16-2022 Hemoglobin (Bld) [Mass/Vol] 12.7 g/dL 12.0-15.0 [facility] Blood platelet mean volumeOr dered By: Blu Albert on 11-16-2022 Platelet mean volume (Bld) [Entitic vol] 8.8 fL 6.2-12.0 [facility] Determination of erythrocyte mean corpuscular volume (MCV)Ordered By: Blu Albert on 11-16-2022 MCV (RBC) [Entitic vol] 86.2 fL 81-99 [facility] Hematocrit Auto (Bld) [Volum e fraction]Ordered By: Blu Albert on 11-16-2022 Hematocrit (Bld) [Volume fraction] 36.3 % 37-47 [facility] Laboratory - Chemistry and C hemistry - challengeOrdered By: Blu Albert on 11-16-2022 CO2 [Moles/Vol] 25.0 mmol/L 21.0-32.0 [facility] Urea nitrogen/Creatinine [Mass ratio] 15.1 mg/mg 10-20 [facility] Laboratory - Hematology and Cell countsOrdered By: Blu Albert on 11-16-2022 Erythrocyte distribution width (RBC) [Entitic vol] 40.4 fL 35.1-43.9 [facility] Erythrocyte distribution width (RBC) [Ratio] 12.9 % 11.6-14.6 [facility] MCH (RBC) [Entitic mass] 30.2 pg 27.0-32.0 [facility] MCHC Auto (RBC) [Mass/Vol]Or dered By: Blu Albert on 11-16-2022 MCHC (RBC) [Mass/Vol] 35.0 g/dL 32-36 [facility] No Panel InformationOrdered By: Blu Albert on 11-16-2022 Estimated GFR (MDRD) Amer 114 mL/min >60 [facility] Comment on above: GFR Calc Estimated GFR (MDRD) Non-Af Amer 94 mL/min >60 [facility] Comment on above: Non- GFR Calc Troponin I High Sensitivity < 3 pg/mL 3.0-54.0 [facility] Comment on above: Please Note: New [place] t Units and Gender Specific Reference Ranges. For more information see Policy Stat Procedure [place] High Sensitivity Troponin (TNIH) and attachments. Platelets bldOrdered By: Sabi Albert on 11-16-2022 Platelets (Bld) [#/Vol] 213 10*3/uL 150-450 [facility] Serum or plasma calcium lilliana urement (mass/volume)Ordered By: Blu Albert on 11-16-2022 Calcium [Mass/Vol] 9.4 mg/dL 8.5-10.1 [facility] Serum or plasma creatinine m easurement (mass/volume)Ordered By: Blu Albert on 11-16-2022 Creatinine [Mass/Vol] 0.66 mg/dL 0.55-1.02 [facility] Comment on above: The validity of the calculated GFR & GFRAA in patients over 70 years has not been determined. Clinical correlation is essential. Serum or plasma urea nitroge n measurement (mass/volume)Ordered By: Blu Albert on 11-16-2022 Urea nitrogen [Mass/Vol] 10 mg/dL 10-26 [facility] Thin prep Papanicolaou smear with manual screeningOrdered By: Blu Albert on 11-16-2022 Thin prep Papanicolaou smear with manual screening 6 - [facility] CNOVon 09-12-2022 CNOV Office Visit (UCWSTR ) -------- NADIRA BENÍTEZ ([id number]) 1955 F [facility] Date Time Provider Department 09/12/22 1:15 PM DAIJA MEJÍA [facility] During your visit today, we recorded the following information about you: Temperature Pulse Respiration Blood pressure 98.3 degrees 65/minute 21/minute 140/88 Weight 90.2 kg Daija Mejía APRN.CNP 09/12/2022 1:37 PM Signed This note was created using NoteWriter. Subjective Nadira Moisés Jeyson is a 67 year old female. 67 year old female with PMH CAD, CABG, anemia, and obesity presents with sore throat Acute onset 6 days ago +sore throat Feels like glass +low grade fever +runny nose Ear "feel sore" Denies cough. Denies SOB. Denies dyspnea Denies skin rash or lesions. The history is provided by the patient. No supervisor modern languages was used. Sore Throat This is a new problem. The current episode started 1 to 4 weeks ago. The problem has been unchanged. Neither side of throat is experiencing more pain than the other. The maximum temperature recorded prior to her arrival was 100.4 - 100.9 F. The pain is at a severity of 6/10. The pain is moderate. Associated symptoms include congestion, ear pain and headaches. Pertinent negatives include no abdominal pain, coughing, diarrhea, drooling, ear discharge, hoarse voice, plugged ear sensation, neck pain, shortness of breath, stridor, swollen glands, trouble swallowing or vomiting. She has had no exposure to strep or mono. She has tried nothing for the symptoms. The treatment provided no relief. PAST MEDICAL HISTORY Diagnosis Date Anemia, unspecified Cardiac dysrhythmia, unspecified Cervical vertebral fusion 2014 Dysthymic disorder Esophageal reflux Generalized osteoarthrosis, unspecified site knees Lumbago PAST SURGICAL HISTORY Procedure Laterality Date ANTERIOR INTERBODY FUSION, CERVICAL 2014 CABG (3) VEIN GRAFTS AND ARTERIAL GRAFT(S) 12/27/2019 PAST SURGICAL HISTORY OF colon resected PAST SURGICAL HISTORY OF cyst knee ROTATOR CUFF REPAIR Right 2015 ALLERGIES Bactrim [Sulfamethoxazole-Trimet hoprim] MEDICATIONS celecoxib (CELEBREX) 200 mg capsule Take 200 mg by mouth twice daily. metoprolol tartrate, short acting, (LOPRESSOR) 50 mg tablet Take 1.5 tablets by mouth twice daily. ascorbic acid, vitamin C, (VITAMIN C) 500 mg tablet Take 1 tablet by mouth twice daily before meals. aspirin 81 mg chewable tablet Take Aspirin 162 mg (2 tablets) daily until 108 when starting Plavix, then decrease Aspirin to 81 mg daily. ferrous sulfate 325 mg (65 mg iron) tablet Take 1 tablet by mouth once daily. acetaminophen (TYLENOL) 500 mg tablet Take 2 tablets by mouth every 6 hours as needed for Pain. hydrOXYchloroQUINE (PLAQUENIL) 200 mg tablet Take 200 mg by mouth twice daily. methotrexate 2.5 mg tablet Take 8 tablets by mouth once each week. folic acid 1 mg tablet Take 1 tablet by mouth once daily. gabapentin (NEURONTIN) 600 mg tablet Take 1,200 mg by mouth three times daily. atorvastatin (LIPITOR) 80 mg tablet Take 80 mg by mouth once daily. Cholecalciferol, Vitamin D3, 25 mcg (1,000 unit) cap Take 2,000 Units by mouth once daily. cyanocobalamin (VITAMIN B-12) 500 mcg tablet Take by mouth once daily. magnesium oxide 400 mg cap Take by mouth once daily. aspirin(ECOTRIN LOW STRENGTH 81 MG TAB) Take one(1) tablet daily. calcium carbonate/vitamin d3(CALCIUM 500 WITH VITAMIN D 500 MG (1,250 MG)-200 UNIT TAB) Take one(1) tablet two(2) times daily. ALL PURPOSE MULTIVITAMIN-MIN ORAL TAB Take one(1) tablet daily. predniSONE (DELTASONE) 10 mg tablet Take 4 tabs daily for 3 days, then 2 tabs daily for 3 days, then 1 tab daily for 3 days with food. metoprolol tartrate, short acting, (LOPRESSOR) 50 mg tablet Take 1.5 tablets by mouth twice daily. pyridoxine, vitamin B6, (VITAMIN B-6) 100 mg tablet Take 25 mg by mouth once daily. DULoxetine (CYMBALTA) 30 mg capsule Take 30 mg by mouth once daily. ALENDRONATE SODIUM (FOSAMAX ORAL) Take 70 mg by mouth once each week. (Patient not taking: Reported on 09/12/2022) pantoprazole DR (PROTONIX) 20 mg tablet Take 20 mg by mouth once daily. zolpidem (AMBIEN) 10 mg tab Take by mouth at bedtime as needed. ALPRAZolam (XANAX) 0.5 mg tablet Take 0.5 mg by mouth three times daily as needed for Anxiety. FAMILY HISTORY Problem Relation Age of Onset Cancer Father LEUKEMIA AGE 56 Osteoporosis Mother Heart Mother CAD,CHF, renal failure Breast Cancer Sister AGE 46 CA OF BONE Breast Cancer Maternal Aunt Breast Cancer Other MATERNAL COUSIN Diabetes Brother other (RENAL DIS) Sister DIALYSIS FOR 23 YRS, Social History Tobacco Use Smoking status: Former Smokeless tobacco: Never Tobacco comments: quit at least 10 years ago Substance Use Topics Alcohol use: Yes Comment: 2 times a year Drug use: No Review of Systems (more content not included)... Normal [facility] STREP A MOLECULAR (POC)on Procedural Control Valid [facility] Strep A (POCT) Negative Negative [facility] LABORATORYOrdered By: Tae Dos Santos on 05-26-2021 Albumin BCP dye [Mass/Vol] 4.4 G/dL Invalid Interpretation Code 3.4 - 4.8 G/dL AO ADM SS Albumin/Globulin [Mass ratio] 1.8 {ratio} Invalid Interpretation Code 1.1 - 2.5 ratio AO ADM SS ALP [Catalytic activity/Vol] 84 U/L Invalid Interpretation Code 40 - 135 U/L AO ADM SS ALT With P-5'-P [Catalytic activity/Vol] 27 U/L Invalid Interpretation Code 14 - 59 U/L AO ADM SS AST With P-5'-P [Catalytic activity/Vol] 21 U/L Invalid Interpretation Code 10 - 40 U/L AO ADM SS Bilirubin [Mass/Vol] 1.3 mg/dL Invalid Interpretation Code 0.2 - 1.0 mg/dL AO ADM SS Calcium [Mass/Vol] 8.9 mg/dL Invalid Interpretation Code 8.4 - 10.2 mg/dL AO ADM SS Chloride [Moles/Vol] 104 mmol/L Invalid Interpretation Code 98 - 107 mmol/L AO ADM SS Cholesterol [Mass/Vol] 139 mg/dL Invalid Interpretation Code 0 - 200 mg/dL AO ADM SS Cholesterol in HDL [Mass/Vol] 65 mg/dL Invalid Interpretation Code 40 - 60 mg/dL AO ADM SS Cholesterol in LDL [Mass/Vol] 49 mg/dL Invalid Interpretation Code 0 - 130 mg/dL AO ADM SS CO2 [Moles/Vol] 28 mmol/L Invalid Interpretation Code 23 - 31 mmol/L AO ADM SS Creatinine [Mass/Vol] 0.57 mg/dL Invalid Interpretation Code 0.55 - 1.02 mg/dL AO ADM SS Electrolyte Balance 9.0 mEq/L Invalid Interpretation Code 4.0 - 15.0 mEq/L AO ADM SS Globulin 2.4 G/dL Invalid Interpretation Code AO ADM SS Glucose [Mass/Vol] 86 mg/dL Invalid Interpretation Code 80 - 115 mg/dL AO ADM SS Iron [Mass/Vol] 74 ug/dL Invalid Interpretation Code 50 - 170 mcg/dL AO ADM SS Potassium [Moles/Vol] 4.5 mmol/L Invalid Interpretation Code 3.5 - 5.1 mmol/L AO ADM SS Protein [Mass/Vol] 6.8 G/dL Invalid Interpretation Code 6.4 - 8.2 G/dL AO ADM SS Sodium [Moles/Vol] 141 mmol/L Invalid Interpretation Code 136 - 145 mmol/L AO ADM SS Triglyceride [Mass/Vol] 127 mg/dL Invalid Interpretation Code 0 - 150 mg/dL AO ADM SS Urea nitrogen [Mass/Vol] 9 mg/dL Invalid Interpretation Code 7 - 18 mg/dL AO ADM SS Urea nitrogen/Creatinine [Mass ratio] 16 ratio Invalid Interpretation Code 7 - 27 ratio AO ADM SS Vit. D 25-Hydroxy 49.3 ng/mL Invalid Interpretation Code AO ADM SS LABORATORYOrdered By: Gideon Baires on 05-26-2021 Albumin DL <= 20 mg/L (U) [Mass/Vol] 813 mcg/dL Invalid Interpretation Code AO ADM SS Albumin/Creatinine DL <= 20 mg/L (U) [Mass ratio] 16 mcg/mg Invalid Interpretation Code 0 - 30 mcg/mg AO ADM SS Creatinine (U) [Mass/Vol] 49.3 mg/dL Invali d Interpretation Code 28.0 - 117.0 mg/dL AO ADM SS LABORATORYOrdered By: Liliana Goodrich on 05-26-2021 Basophil, Absolute 0.00 103/mcL Invalid Interpretation Code 0.00 - 0.19 10^3/mcL AO Auto Heme SS Basophils/100 WBC (Bld) 0.4 % Invalid Interpretation Code 0.0 - 2.5 % AO Auto Heme SS Eosinophil, Absolute 0.10 103/mcL Invalid Interpretation Code 0.00 - 0.40 10^3/mcL AO Auto Heme SS Eosinophils/100 WBC (Bld) 1.2 % Invali d Interpretation Code 0.0 - 7.0 % AO Auto Heme SS Erythrocyte distribution width (RBC) [Ratio] 14.5 % Invalid Interpretation Code 11.5 - 14.5 % AO Auto Heme SS Hematocrit (Bld) [Volume fraction] 35.4 % Invalid Interpretation Code 37.0 - 47.0 % AO Auto Heme SS Hemoglobin (Bld) [Mass/Vol] 12.5 G/dL Invalid Interpretation Code 12.0 - 16.0 G/dL AO Auto Heme SS Lymphocyte, Absolute 3.40 103/mcL Invalid Interpretation Code 0.77 - 3.85 10^3/mcL AO Auto Heme SS Lymphocytes/100 WBC (Bld) 45.4 % Invali d Interpretation Code 10.0 - 50.0 % AO Auto Heme SS MCH (RBC) [Entitic mass] 31.2 pg Invalid Interpretation Code 27.0 - 31.2 pg AO Auto Heme SS MCHC (RBC) [Mass/Vol] 35.3 G/dL Invalid Interpretation Code 33.0 - 37.0 G/dL AO Auto Heme SS MCV (RBC) [Entitic vol] 88.5 fL Invalid Interpretation Code 80.0 - 94.0 fL AO Auto Heme SS Monocyte, Absolute 0.40 103/mcL Invalid Interpretation Code 0.15 - 1.00 10^3/mcL AO Auto Heme SS Monocytes/100 WBC (Bld) 5.9 % Invalid Interpretation Code 1.7 - 13.0 % AO Auto Heme SS Neutrophil, Absolute 3.50 103/mcL Invalid Interpretation Code 2.85 - 6.16 10^3/mcL AO Auto Heme SS Neutrophils/100 WBC (Bld) 47.1 % Invali d Interpretation Code 37.0 - 80.0 % AO Auto Heme SS Platelet mean volume (Bld) [Entitic vol] 7.5 fL Invalid Interpretation Code 7.4 - 10.4 fL AO Auto Heme SS Platelets (Bld) [#/Vol] 215 103/mcL Invalid Interpretation Code 130 - 400 10^3/mcL AO Auto Heme SS RBC (Bld) [#/Vol] 4.00 106/mcL Invalid Interpretation Code 4.20 - 5.40 10^6/mcL AO Auto Heme SS WBC (Bld) [#/Vol] 7.50 103/mcL Invalid Interpretation Code 4.60 - 10.80 10^3/mcL AO Auto Heme SS LABORATORYOrdered By: SYSTEM SYSTEM on 05-26-2021 Cobalamin (Vitamin B12) [Mass/Vol] 440 pg/mL Invalid Interpretation Code 211 - 911 pg/mL AH ADM SS GFR 129 ml/min/1.73sqm Invalid Interpretation Code AO Chemistry S GFR Non- 106 ml/min/1.73sqm Inva lid Interpretation Code AO Chemistry S CNPIvette 05-29-2020 CNPN Telephone ([place]) -------- NADIRA BENÍTEZ ([id number]) 1955 F Date Time Provider Department 05/29/20 NELLIE GALVAN (EX PHYS) SARAH During your visit today, we recorded the following information about you: Samira Malhotra 05/29/2020 10:15 AM Signed Attempts to reach patient via phone regarding Cardiopulmonary Rehab referral have been unsuccessful. No response from letter sent in mail. Will consider no response a patient deferral of services at this time. Nellie Edyta Galvan, Cardiopulmonary Rehab [id number] Allergies As of Date: 05/29/2020 Noted Allergy Reaction BACTRIM (SULFAMETHOXAZOLE-TRIMET H*12/15/2004 2 - Rash Date Reviewed: 02/01/2020 Reviewed by: Jennifer (Sonia) Tono - Fully Assessed 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: Cardiac Rehab [3551] Prescriptions as of 05/29/2020 Sig: METOPROLOL TARTRATE 50 MG TAB* Take 1.5 tablets by mouth twi* METOPROLOL TARTRATE 50 MG TAB* Take 1.5 tablets by mouth twi* CLOPIDOGREL 75 MG TABLET Take 1 tablet by mouth once d* ASCORBIC ACID (VITAMIN C) 500* Take 1 tablet by mouth twice * ASPIRIN 81 MG CHEWABLE TABLET Take Aspirin 162 mg (2 tablet* FERROUS SULFATE 325 MG (65 MG* Take 1 tablet by mouth once d* ACETAMINOPHEN 500 MG TABLET Take 2 tablets by mouth every* HYDROXYCHLOROQUINE 200 MG TAB* Take 200 mg by mouth twice da* METHOTREXATE SODIUM 2.5 MG TA* Take 8 tablets by mouth once * FOLIC ACID 1 MG TABLET Take 1 tablet by mouth once d* PYRIDOXINE (VITAMIN B6) 100 M* Take 25 mg by mouth once mickey* DULOXETINE 30 MG CAPSULE,FANY* Take 30 mg by mouth once mickey* GABAPENTIN 600 MG TABLET Take 1,200 mg by mouth three * FOSAMAX ORAL Take 70 mg by mouth once each* ATORVASTATIN 80 MG TABLET Take 80 mg by mouth once mickey* PANTOPRAZOLE 20 MG TABLET,DEL* Take 20 mg by mouth once mickey* ZOLPIDEM 10 MG TABLET Take by mouth at bedtime as * ALPRAZOLAM 0.5 MG TABLET Take 0.5 mg by mouth three ti* CHOLECALCIFEROL (VITAMIN D3) * Take 2,000 Units by mouth onc* CYANOCOBALAMIN (VIT B-12) 500* Take by mouth once daily. MAGNESIUM 400 MG ( MAGNESIU* Take by mouth once daily. * ECOTRIN LOW STRENGTH 81 MG TA* Take one(1) tablet daily. * CALCIUM 500 WITH VITAMIN D2 5* Take one(1) tablet two(2) renny* * ALL PURPOSE MULTIVITAMIN-MIN * Take one(1) tablet daily. Problem List As Of Date 05/29/2020 Noted Resolved CARDIAC DYSRHYTHMIA NOS [I49.9] DYSTHYMIC DISORDER [F34.1] ANEMIA NOS [D64.9] GENERAL OSTEOARTHROSIS [M15.9] More... LUMBAGO [M54.5] Sprain of foot, unspecified site [S93.609A] 08/26/2008 01/10/2020 Seronegative rheumatoid arthritis (HCC) [M06.00]08/17/2016 Angina of effort (HCC) [I20.8] 12/03/2019 01/10/2020 CAD (coronary artery disease) [I25.10] 12/25/2019 Obesity, Class I, BMI 30-34.9 [E66.9] 12/27/2019 Stenosis of right carotid artery [I65.21] 12/31/2019 More... S/P CABG x 3 [Z95.1] 12/31/2019 More... Right knee pain [M25.561] 01/10/2020 Encounter Status:Closed by NELLIE GALVAN on 05/29/20 [facility] Fabienne 05-14-2020 CNPN Telephone ([place]) -------- NADIRA BENÍTEZ ([id number]) 1955 F Date Time Provider Department 05/14/20 JENA HANNA) [place] During your visit today, we recorded the following information about you: Jena Hanna 05/14/2020 1:47 PM Signed Multiple attempts to contact patient via phone regarding Cardiopulmonary Rehab referral. No response. Letter sent requesting response by 05/28/20. Jena Hanna RN Specialist Cardiopulmonary Rehab Allergies As of Date: 05/14/2020 Noted Allergy Reaction BACTRIM (SULFAMETHOXAZOLE-TRIMET H*12/15/2004 2 - Rash Date Reviewed: 02/01/2020 Reviewed by: Jennifer (Sonia) Tono - Fully Assessed 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: Cardiac Rehab [3551] Prescriptions as of 05/14/2020 Sig: METOPROLOL TARTRATE 50 MG TAB* Take 1.5 tablets by mouth twi* METOPROLOL TARTRATE 50 MG TAB* Take 1.5 tablets by mouth twi* CLOPIDOGREL 75 MG TABLET Take 1 tablet by mouth once d* ASCORBIC ACID (VITAMIN C) 500* Take 1 tablet by mouth twice * ASPIRIN 81 MG CHEWABLE TABLET Take Aspirin 162 mg (2 tablet* FERROUS SULFATE 325 MG (65 MG* Take 1 tablet by mouth once d* ACETAMINOPHEN 500 MG TABLET Take 2 tablets by mouth every* HYDROXYCHLOROQUINE 200 MG TAB* Take 200 mg by mouth twice da* METHOTREXATE SODIUM 2.5 MG TA* Take 8 tablets by mouth once * FOLIC ACID 1 MG TABLET Take 1 tablet by mouth once d* PYRIDOXINE (VITAMIN B6) 100 M* Take 25 mg by mouth once mickey* DULOXETINE 30 MG CAPSULE,FANY* Take 30 mg by mouth once mickey* GABAPENTIN 600 MG TABLET Take 1,200 mg by mouth three * FOSAMAX ORAL Take 70 mg by mouth once each* ATORVASTATIN 80 MG TABLET Take 80 mg by mouth once mickey* PANTOPRAZOLE 20 MG TABLET,DEL* Take 20 mg by mouth once mickey* ZOLPIDEM 10 MG TABLET Take by mouth at bedtime as * ALPRAZOLAM 0.5 MG TABLET Take 0.5 mg by mouth three ti* CHOLECALCIFEROL (VITAMIN D3) * Take 2,000 Units by mouth onc* CYANOCOBALAMIN (VIT B-12) 500* Take by mouth once daily. MAGNESIUM 400 MG ( MAGNESIU* Take by mouth once daily. * ECOTRIN LOW STRENGTH 81 MG TA* Take one(1) tablet daily. * CALCIUM 500 WITH VITAMIN D2 5* Take one(1) tablet two(2) renny* * ALL PURPOSE MULTIVITAMIN-MIN * Take one(1) tablet daily. Problem List As Of Date 05/14/2020 Noted Resolved CARDIAC DYSRHYTHMIA NOS [I49.9] DYSTHYMIC DISORDER [F34.1] ANEMIA NOS [D64.9] GENERAL OSTEOARTHROSIS [M15.9] More... LUMBAGO [M54.5] Sprain of foot, unspecified site [S93.609A] 08/26/2008 01/10/2020 Seronegative rheumatoid arthritis (HCC) [M06.00]08/17/2016 Angina of effort (HCC) [I20.8] 12/03/2019 01/10/2020 CAD (coronary artery disease) [I25.10] 12/25/2019 Obesity, Class I, BMI 30-34.9 [E66.9] 12/27/2019 Stenosis of right carotid artery [I65.21] 12/31/2019 More... S/P CABG x 3 [Z95.1] 12/31/2019 More... Right knee pain [M25.561] 01/10/2020 Encounter Status:Closed by JENA HANNA on 05/14/20 [facility] T-SPOT TBon 02-29-2020 T-SPOT LIMITS SEE COMMENT [facility] Comment on above: Order Comment: T-SPO T SENT TO ST LAB 02/28/20 0832 OLU ESCAMILLA Result Comment: LIZ OCONNOR - 1.) A FALSE NEGATIVE result can be caused by incorrect blood sample collection or improper handling of the specimen, affecting lymphocyte function. 2.) The performance of T-SPOT.TB has not been adequately evaluated with specimens from individuals younger than 17 years, in women, and in patients with hemophilia. 3.) A FALSE POSITIVE result was obtained for T-SPOT.TB when tested in subjects with M.xenopi, M.kansasii, and M.gordonae. While ESAT-6 and CFP-10 antigens are absent from BCG strains of M.bovis and from most enviromental mycobacteria, it is possible that a POSITIVE T-SPOT.TB result may be due to infection with M.kansasii, M.szulgai, M.gordonae, or M.marinum. Alternative tests would be required if these infections are suspected. 4.) A NEGATIVE test result does not exclude the possiblility of exposure to, or infection with M.tuberculosis. Patients with recent exposure to TB infected individuals exhibiting a negative T-SPOT.TB should be considered for retesting within 6 weeks or if other relevant clinical symptoms indicate possible infections. 5.) A POSITIVE test result does not rule in active TB disease: other tests should be performed to confirm the diagnosis of active TB disease such as sputum smear and culture, PCR and chest radiography. 6.) T-SPOT.TB test has not been evaluated in subjects who have received >1 month of anti-TB therapy. 7.) Refrigerated and frozen samples are not recommended for use with T-SPOT.TB test. TESTING PERFORMED AT [facility], [facility] [address] [place] [address]. Performed By: #### L 700.96828 #### [facility] [address] [id number] T-SPOT NOTE SEE COMMENT Normal [facility] Comment on above: Order Comment: T-SPO T SENT TO [facility] 02/28/20 08OLU FELIX Result Comment: NOTE : Diagnosing or excluding Tuberculosis disease, and assessing the probability of LTBI, requires a combination of epidemiological, historical, medical and diagnostic findings that should be taken into account when interpreting T-SPOT.TB. Refer to the most rescent CDC Guidance (HTTP://WWW.CDC.GOV/NCHSTP/TB) for detailed recommendations about diagnosing TB infections (including disease) and selecting persons for testing. Performed By: #### L 700.72576 #### [place] [address] [address] [id number] T-SPOT RESULT Negative Normal NEGATIVE [facility] Comment on above: Order Comment: T-SPO T SENT TO [facility] 02/28/20 08OLU FELIX Performed By: #### L 700.86703 #### [facility] [address], [place] [address] CBC W/DIFFon 02-27-2020 BASO ABS 0.00 K/CU MM Normal 0-0.2 [facility] Comment on above: Performed By: #### L 200.62495, L200.09485 #### [facility] [address] [place] [id number] Basophils/100 WBC (Bld) 0.3 % Normal 0-2 M [facility] Comment on above: Performed By: #### L 200.33777, L200.72885 #### [facility] [address] [place] [address] EOS ABS 0.00 K/CU MM Normal 0-0.5 [facility] Comment on above: Performed By: #### L 200.44687, L200.63248 #### [facility] [address] [place] [address] Eosinophils/100 WBC (Bld) 0.4 % Normal 0-5 [facility] Comment on above: Performed By: #### L 200.56517, L200.77107 #### [facility] [address] [place] [address] Erythrocyte distribution width (RBC) [Ratio] 14.5 % Normal 11-14.5 [facility] Comment on above: Performed By: #### L 200.72027, L200.79443 #### [facility] [address] [place] [address] Hematocrit (Bld) [Volume fraction] 33.1 % Low 35.0-47.0 [facility] Comment on above: Performed By: #### L 200.30352, L200.85308 #### [facility] [address] [place] [address] Hemoglobin (Bld) [Mass/Vol] 11.2 g/dL Low 11.5-15.5 [facility] Comment on above: Performed By: #### L 200.34460, L200.16486 #### [facility] [address] [place] [address] IMMATR GRAN ABS 0.00 K/CU MM Normal Less than 2 [facility] Comment on above: Performed By: #### L 200.34012, L200.15058 #### [facility] [address] [place] [address] IMMATURE GRAN % 0.1 % Normal Less than 2 [facility] Comment on above: Performed By: #### L 200.01185, L200.67472 #### [facility] [address] [place] [address] Lymphocytes (Bld) [#/Vol] 2.10 K/CU MM Normal 0.9-4.4 [facility] Comment on above: Performed By: #### L 200.70845, L200.35197 #### [facility] [address] [place] [address] Lymphocytes/100 WBC (Bld) 30.6 % Normal 20-40 [facility] Comment on above: Performed By: #### L 200.17777, L200.52611 #### [facility] [address] [place] [address] MCHC (RBC) [Mass/Vol] 33.8 g/dL Normal 32.0-36.0 [facility] Comment on above: Performed By: #### L 200.70349, L200.46997 #### [facility] [address] [place] [address] MCV (RBC) [Entitic vol] 88.5 fL Normal 80.0-99.0 [facility] Comment on above: Performed By: #### L 200.59796, L200.37982 #### [facility] [address] [place] [address] MONO ABS 0.40 K/CU MM Normal 0.1-1.1 [facility] Comment on above: Performed By: #### L 200.02236, L200.99435 #### [facility] [address] [place] [address] Monocytes/100 WBC (Bld) 6.4 % Normal 2-10 M [facility] Comment on above: Performed By: #### L 200.82533, L200.78765 #### [facility] [address] [place] [address] NEUTROPHIL ABS 4.20 K/CU MM Normal 2.0-8.3 [facility] Comment on above: Performed By: #### L 200.09093, L200.47803 #### [facility] [address] [place] [address] Neutrophils/100 WBC (Bld) 62.2 % Normal 45-75 [facility] Comment on above: Performed By: #### L 200.33361, L200.60476 #### [facility] [address] [place] [address] Nucleated RBC/100 WBC (Bld) [Ratio] 0.0 % Normal Less than 1 [facility] Comment on above: Performed By: #### L 200.52169, L200.24272 #### [facility] [address] [place] [address] Platelet mean volume (Bld) [Entitic vol] 9.3 fL Low 9.4-12.4 [facility] Comment on above: Performed By: #### L 200.73832, L200.07656 #### [facility] [address] [place] [address] Platelets (Bld) [#/Vol] 268 K/CU MM Normal 150-450 [facility] Comment on above: Performed By: #### L 200.68430, L200.66055 #### [facility] [address] [place] [address] RBC (Bld) [#/Vol] 3.74 M/CU MM Low 3.90-5.30 [facility] Comment on above: Performed By: #### L 200.23250, L200.61429 #### [facility] [address] [place], [place] [address] WBC (Bld) [#/Vol] 6.7 K/CUMM Normal 4.5-11.0 [facility] Comment on above: Performed By: #### L 200.16011, L200.68548 #### [facility] [place] [address] CMPon 02-27-2020 Albumin [Mass/Vol] 4.1 g/dL Normal 3.2-5.0 [facility] Comment on above: Performed By: #### L 500.22446, L500.00108, L500.28242, L550.86120 #### [facility] [place] [address] Albumin/Globulin [Mass ratio] 2.0 {ratio} Normal 0.8-2.0 [facility] Comment on above: Performed By: #### L 500.52089, L500.70113, L500.30065, L550.42701 #### [facility] [address] [place] [address] ALK PHOS 76 U/L Normal 45-117 [facility] Comment on above: Performed By: #### L 500.15374, L500.46064, L500.34760, L550.57654 #### [facility] [address] [place], [place] [address] ALT [Catalytic activity/Vol] 19 U/L Normal 13-61 [facility] Comment on above: Result Comment: RESU LTS MAY BE FALSELY DEPRESSED AFTER THE ADMINISTRATION OF SULFASALAZINE AND/OR SULFAPYRIDINE. Performed By: #### L 500.93673, L500.75111, L500.61739, L550.41345 #### [facility] [place] [address] Anion gap [Moles/Vol] 8 mmol/L Normal 5-16 [facility] Comment on above: Performed By: #### L 500.63385, L500.92296, L500.72712, L550.40923 #### [facility] [address] [place] [address] BILI TOTAL 1.20 MG/DL High 0.2-1.0 [facility] Comment on above: Performed By: #### L 500.68194, L500.94599, L500.55328, L550.55962 #### [facility] [address] [place] [address] Calcium [Mass/Vol] 10.1 mg/dL Normal 8.5-10.5 [facility] Comment on above: Result Comment: NOTE NEW NORMAL RANGE DUE TO REAGENT CHANGE Performed By: #### L 500.27342, L500.79176, L500.70803, L550.18700 #### [facility] [address] [place] [address] Chloride [Moles/Vol] 105 mmol/L Normal 98-107 [facility] Comment on above: Performed By: #### L 500.77328, L500.02133, L500.21556, L550.57266 #### [facility] [address] [place] [address] CO2 [Moles/Vol] 27.0 mmol/L Normal 21-32 [facility] Comment on above: Performed By: #### L 500.83028, L500.89993, L500.01460, L550.85927 #### [facility] [address] [place], [place] [address] Creatinine [Mass/Vol] 0.56 mg/dL Normal 0.510- 0.[address] [facility] Comment on above: Result Comment: Ella ents receiving either N-Acetylcysteine (NAC) or Metamizole prior to venipuncture, may have falsely depressed results. Performed By: #### L 500.64717, L500.25853, L500.15730, L550.89040 #### [facility] [place] [address] Globulin (S) [Mass/Vol] 2.1 g/dL Low 2.2-4.2 M [facility] Comment on above: Performed By: #### L 500.00331, L500.61139, L500.41188, L550.64707 #### [facility] [address] [place], [place] [address] Glucose [Mass/Vol] 86 mg/dL Normal 70-100 [facility] Comment on above: Result Comment: 70-1 00- Normal Fasting; 100-125 Impaired Fasting; greater than 126 on more than one result- Diabetes. ADA guidelines. Results may be falsely elevated after the administration of Sulfapyridine. Results may be falsely depressed after the administration of Sulfasalazine. Performed By: #### L 500.24528, L500.46818, L500.00255, L550.39124 #### [facility] [place] [address] Potassium [Moles/Vol] 4.3 mmol/L Normal 3.5-5.1 [facility] Comment on above: Performed By: #### L 500.83982, L500.85949, L500.81426, L550.34722 #### [facility] [address] [place] [address] [id number] Protein [Mass/Vol] 6.2 g/dL Normal 6.0-8.5 [facility] Comment on above: Performed By: #### L 500.60304, L500.67124, L500.44304, L550.84066 #### [facility] [address] [place] [address] 82999 SGOT (AST) 23 U/L Normal 8-34 [facility] Comment on above: Result Comment: RESU LTS MAY BE FALSELY DEPRESSED AFTER THE ADMINISTRATION OF SULFASALAZINE AND/OR SULFAPYRIDINE. Performed By: #### L 500.73715, L500.59210, L500.40683, L550.35494 #### [facility] [address] [place] [address] 9[address]30 Sodium [Moles/Vol] 140 mmol/L Normal 136-145 [facility] Comment on above: Performed By: #### L 500.76135, L500.28856, L500.95766, L550.20142 #### [facility] [address] [place] [address] Urea nitrogen [Mass/Vol] 7 mg/dL Normal 7-26 [facility] Comment on above: Performed By: #### L 500.94645, L500.71133, L500.76179, L550.20833 #### [facility] [address] [place] [address] Urea nitrogen/Creatinine [Mass ratio] 12 mg/mg Low 15-24 [facility] Comment on above: Performed By: #### L 500.99970, L500.27719, L500.98334, L550.59663 #### [facility] [address] [place] [address] CRPon 02-27-2020 CRP [Mass/Vol] 0.4 mg/L Normal LESS THAN 1 [facility] Comment on above: Performed By: #### L 500.54076, L500.76067, L500.99289, L550.02837 #### [facility] [address] [place], [place] [id number] GFR ESTon 02-27-2020 IF AMER Greater than 60 Normal [facility] Comment on above: Performed By: #### L 500.55916, L500.68227, L500.08427, L550.00333 #### [facility] [address] [place] [address] IF non-AFR AMER Greater than 60 Normal [facility] Comment on above: Performed By: #### L 500.87127, L500.70000, L500.93086, L550.75558 #### [facility] [address] [place] [address]1892 URIC ACIDon 02-27-2020 Urate [Mass/Vol] 4.2 mg/dL Normal 2.6-6.0 [facility] Comment on above: Result Comment: Ella ents receiving Metamizole prior to venipuncture, may have falsely depressed results. Performed By: #### L 500.17615, L500.70944, L500.18277, L550.02332 #### [facility] [address] [place] [address] 36186 WSR/MODon 02-27-2020 WSR/MOD 7 MM/HR Normal 0-30 [facility] Comment on above: Performed By: #### L 200.48917, L200.98233 #### [facility] [address] [place] [address] CNOVon 02-01-2020 CNOV Office Visit ([facility]) -------- BRENDANSTELLANUSRATNADIRA T ([id number]) 1955 F Date Time Provider Department 02/01/20 1:00 PM YULISSA ENRIQUEZ (ROPE TWISTING MACHINE OPERATOR, DEVELOPMENT AND HOUSING DIRECTOR) AGSANTIACC During your visit today, we recorded the following information about you: Pulse Respiration Blood pressure Weight 63/minute 18/minute 102/72 80.7 kg Yulissa Enriquez APRN.DEVELOPMENT AND HOUSING DIRECTOR, DEVELOPMENT AND HOUSING DIRECTOR 02/01/2020 2:10 PM Signed HPI: Nadira Benítez is a 64 year old woman with PMH significant for HTN, HLD, Ex-smoker of 10+ yr (quit 30 yrs ago), ?palpitations on BB, ?RA on Methotrexate, anterior and posterior cervical fusions, diverticulitis and partial bowl resection, general anxiety and depression, who returns to the office today for one month post-discharge follow up for s/p CABG x?3?(vernon-lad, svg-diag?and circ; R evh) performed on 12/27/[address] Chavez. Her post-operative course wascomplicated by acute on chronic pain requiring pain management. She transferred out of CVICU on POD 3 and home in stable condition on 12/31/2019. Interval events: she [facility] with c/o fever,?worsening debilitated right?Leg pain. A set of blood culture was drawn to r/u for potential infection in the leg along with right leg ultrasound which rule out DVT. She then was transferred to [facility] for further management. Her XR of knee showed degenerative change of the right knee and a large joint effusion is noted. Right knee pain was evaluated by Ortho, recommended NSAID, ice and elevate. And patient was dc home on 01/09 after improvement on right knee pain. she has followed up with PCP got started on prednisone which relief the pain significantly. She is also following up with her Open Die Inspector for the right knee pain. Nadira Benítez reports home recovery as listed below: Episodes of dizziness or syncope: postrual related Chest pain: no Palpitations: no BP: reviewed per home lo/78, HR 60-70s Tolerating diet well without changing bowel habits: "got appetite back a few days ago". +diarrhea attributed to Iron tabs Fever, chills: no Activities at home with mild SOB or MILTON: walks 10 minutes 2-3 times a day Post surgical pain without pain medications.location of pain pt c/o is sternal wound, describing as throbbing, burning, 6-7/10, once a day. She has tried Motrin and Tylenol. Leg edema: no Sleep: getting better Energy: low but getting better everyday Subjective: Current Outpatient Medications Medication Sig - metoprolol tartrate, short acting, (LOPRESSOR) 50 mg tablet Take 1.5 tablets by mouth twice daily. - clopidogrel (PLAVIX) 75 mg tablet Take 1 tablet by mouth once daily. Start on 01/16. - ascorbic acid, vitamin C, (VITAMIN C) 500 mg tablet Take 1 tablet by mouth twice daily before meals. - aspirin 81 mg chewable tablet Take Aspirin 162 mg (2 tablets) daily until 01/16 when starting Plavix, then decrease Aspirin to 81 mg daily. - ferrous sulfate 325 mg (65 mg iron) tablet Take 1 tablet by mouth once daily. - acetaminophen (TYLENOL) 500 mg tablet Take 2 tablets by mouth every 6 hours as needed for Pain. - polyethylene glycol 3350 (MIRALAX, GLYCOLAX) 17 gram packet Take 1 Packet by mouth once daily as needed (fro constipation). - senna-docusate (SENNA-S) 8.6-50 mg per tablet Take 1 tablet by mouth twice daily. - hydrOXYchloroQUINE (PLAQUENIL) 200 mg tablet Take 200 mg by mouth twice daily. - methotrexate 2.5 mg tablet Take 8 tablets by mouth once each week. - folic acid 1 mg tablet Take 1 tablet by mouth once daily. - pyridoxine, vitamin B6, (VITAMIN B-6) 100 mg tablet Take 25 mg by mouth once daily. - DULoxetine (CYMBALTA) 30 mg capsule Take 30 mg by mouth once daily. - gabapentin (NEURONTIN) 600 mg tablet Take 1,200 mg by mouth three times daily. - atorvastatin (LIPITOR) 80 mg tablet Take 80 mg by mouth once daily. - pantoprazole DR (PROTONIX) 20 mg tablet Take 20 mg by mouth once daily. - zolpidem (AMBIEN) 10 mg tab Take by mouth at bedtime as needed. - ALPRAZolam (XANAX) 0.5 mg tablet Take 0.5 mg by mouth three times daily as needed for Anxiety. - Cholecalciferol, Vitamin D3, (VITAMIN D) 1,000 unit cap Take 2,000 Units by mouth once daily. - cyanocobalamin (B-12 DOTS) 500 mcg tab Take by mouth once daily. - magnesium oxide 400 mg cap Take by mouth once daily. - aspirin(ECOTRIN LOW STRENGTH 81 MG TAB) Take one(1) tablet daily. - calcium carbonate/vitamin d3(CALCIUM 500 WITH VITAMIN D 500 MG (1,250 MG)-200 UNIT TAB) Take one(1) tablet two(2) times daily. - ALL PURPOSE MULTIVITAMIN-MIN ORAL TAB Take one(1) tablet daily. - Walker thompson Rolling walker (Patient not taking: Reported on 02/01/2020 ) - benzocaine-menthol (CEPACOL) 15-3.6 mg lozg Use 1 Lozenge as instructed every 2 hours as needed. (Patient not taking: Reported on 02/01/2020 ) - ALENDRONATE SODIUM (FOSAMAX ORAL) Take 70 mg by mouth once each week. No current facility-administered medications for this visit. Bactrim [Sulfamethoxazole-Trimet hoprim] PAST MEDICAL HISTORY Diagnosis Date - Anemia, unspecified - Cardiac dysrhythmia, unspecified - Cervical vertebral fusion 2014 - Dysthymic disorder - Esophageal reflux - Generalized osteoarthrosis, unspecified site knees - Lumbago PAST SURGICAL HISTORY Procedure Laterality Date - ANTERIOR INTERBODY FUSION, CERVICAL 2014 - CABG (3) VEIN GRAFTS AND ARTERIAL GRAFT(S) 12/27/2019 - PAST SURGICAL HISTORY OF colon resected - PAST SURGICAL HISTORY OF cyst knee - ROTATOR CUFF REPAIR Right 2014 FAMILY HISTORY Problem Relation Age of Onset - Cancer Father LEUKEMIA AGE 56 - Osteoporosis Mother - Heart Mother CAD,CHF, renal failure - Breast Cancer Sister AGE 46 CA OF BONE - Breast Cancer Maternal Aunt - Breast Cancer Other MATERNAL COUSIN - Diabetes Brother - other (RENAL DIS) Sister DIALYSIS FOR 23 YRS, Social History Tobacco Use - Smoking status: Former Smoker - Smokeless tobacco: Never Used - Tobacco comment: quit at least 10 years ago Substance Use Topics - Alcohol use: Yes Comment: 2 times a year - Drug use: No Review of Systems Constitutional: Negative for chills, fever, malaise/fatigue and weight loss. HENT: Negative for sore throat. Respiratory: Negative for cough, sputum production, shortness of breath and wheezing. Cardiovascular: Negative for chest pain, palpitations, orthopnea, claudication, leg swelling and PND. Gastrointestinal: Positive for diarrhea. Negative for abdominal pain, blood in stool, constipation, melena, nausea and vomiting. Genitourinary: Negative for dysuria. Musculoskeletal: Positive for joint pain. Negative for falls. Severe right knee pain but better with prednisone Skin: No new lesions Neurological: Negative for dizziness, tingling, sensory change, focal weakness, weakness and headaches. Endo/Heme/Allergies: Does not bruise/bleed easily. Psychiatric/Behavioral: Negative for depression. Objective: One month post- op Chest X-ray is done and reviewed today. Lines, tubes, and devices: ?None. Lungs and pleura: ?No consolidation. No lung mass. No pleural effusion. No pneumothorax. Cardiomediastinal silhouette: ?Normal cardiomediastinal silhouette. Bones and soft tissues: ?Status post median sternotomy with normally aligned sternal wires. ?Incompletely-imaged cervical hardware. Physical Examination: Vitals:BP 102/72 Pulse 63 Resp 18 Wt 178 lb (80.7kg) SpO2 99% LMP 12/16/2004 BP w/Orthostatic Vitals Date and Time Orthostatic BP Orthostatic Pulse BP Pulse BP Position BP Site BP Cuff Size 02/01/20 1314 -- -- 102/72 63 -- Left Arm -- Peak Flow Date and Time PF Resp 02/01/20 1314 -- 18 Last 2 Encounter Wt Readings: Date: Wt: 02/01/2020 178 lb (80.7 kg) 01/14/2020 185 lb (83.9 kg) Physical Exam Constitutional: She is oriented to person, place, and time and well-developed, well-nourished, and in no distress. She appears not dehydrated. She appears healthy. She does not have a sickly appearance. No distress. HENT: Head: Normocephalic. Mouth/Throat: No oropharyngeal exudate. Neck: Normal range of motion. No hepatojugular reflux and no JVD present. Carotid bruit is not present. No edema and no erythema present. Cardiovascular: Normal rate, regular rhythm, S1 normal, S2 normal, normal heart sounds and intact distal pulses. PMI is not displaced. Exam reveals no gallop, no S3, no S4, no distant heart sounds, no friction rub and no decreased pulses. No murmur heard. Pulmonary/Chest: Effort normal and breath sounds normal. No respiratory distress. She has no wheezes. She has no rhonchi. She has no rales. She exhibits no tenderness. Sternal stability is normal. Abdominal: Soft. Bowel sounds are normal. She exhibits no distension and no mass. There is no abdominal tenderness. There is no rebound and no guarding. Musculoskeletal: General: No tenderness or edema. Right knee: She exhibits decreased range of motion, swelling and effusion. Neurological: She is alert and oriented to person, place, and time. Gait normal. Skin: Skin is warm and dry. No bruising, no lesion, no petechiae and no rash noted. She is not diaphoretic. No cyanosis or erythema. No pallor. Sternal incision is healed. No drainage, redness or foul odor. Same presentation appears on the chest tube wounds. SVG harvest site incision is healed. No drainage, redness or foul odor. Psychiatric: Mood and affect normal. Nursing note and vitals reviewed. Assessment and Plan: ASSESSMENT/PLAN: 1. S/P CABG x 3 - ICD9: V45.81, ICD10: Z95.1 (primary diagnosis) - c/w aspirin?81?mg, ?atorvastatin 80 mg, metoprolol 75 mg BID -Plavix 75 daily for 1 yr - ok to start cardiac rehab when right knee pain improved - f/u with Dr. Tate for further cardiac care 2. 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 Tate in 3 month again PCP follow up appointment: already has an OV with PCP In summary, Nadira Benítez is a 64 year old female that returns to the office today for one month post-discharge follow up for s/p CABG x?3?(vernon-lad, svg-diag?and circ; R evh) performed on 12/27/[address] Chavez. Her post-operative course was complicated by acute on chronic pain requiring pain management. Patient is doing well overall after the MCABG sugery, with no major complaints pertaining to CTS but having wax and wane severe right knee pain. Patient is released to drive, work and gradually resume normal daily activities. It's recommended that patient should start cardiac rehab from this point on, especially when her knee is better. she should follow up with her brim rounder and PCP as scheduled, and only needs to be seen here on a as needed basis. Thanks. Electronically signed by Yulissa Enriquez APRN.CNP on February 01, 2020, 1:17 PM Yulissa Enriquez APRN.SALOMÓN LORENZANA 02/01/2020 1:55 PM Signed You have done a great job recovering from you surgery, moving forward, here are the recommendations: Driving: Ok to drive now! Rehab Contacts: [phone] ([facility], floor 1) Restrictions: slowly increase weight bearing in a gradual fashion (5-10 lbs increment each month) over the next 2-3 months to allow further healing, then can gradually resume your normal activities depending on how you feel. Follow-ups: It is crucial to establish future appointments with your other providers: brim rounder , primary care doctor for medications refills/questions and future health management. You are to follow up here with the cardiac surgery team on as needed basis. Please don't hesitate to contact us if you have any concerns/questions: [phone] Thanks for coming in to see me today. Yulissa Enriquez APRN.DEVELOPMENT AND HOUSING DIRECTOR Referring Provider: SELF [200] Allergies As of Date: 02/01/2020 Noted Allergy Reaction BACTRIM (SULFAMETHOXAZOLE-TRIMET H*12/15/2004 2 - Rash Date Reviewed: 02/01/2020 Reviewed by: Jennifer (Sonia) Tono - Fully Assessed 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: Post Op [174] Cmt: 1 momth f/u CXR 01/31/20 Reason For Visit History Recorded Primary Visit Diagnosis:S/P CABG x 3 [Z95.1] Other Visit Diagnosis:Pain, postoperative, acute [G89.18] Prescriptions as of 02/01/2020 Sig: METOPROLOL TARTRATE 50 MG TAB* Take 1.5 tablets by mouth twi* CLOPIDOGREL 75 MG TABLET Take 1 tablet by mouth once d* ASCORBIC ACID (VITAMIN C) 500* Take 1 tablet by mouth twice * ASPIRIN 81 MG CHEWABLE TABLET Take Aspirin 162 mg (2 tablet* FERROUS SULFATE 325 MG (65 MG* Take 1 tablet by mouth once d* ACETAMINOPHEN 500 MG TABLET Take 2 tablets by mouth every* HYDROXYCHLOROQUINE 200 MG TAB* Take 200 mg by mouth twice da* METHOTREXATE SODIUM 2.5 MG TA* Take 8 tablets by mouth once * FOLIC ACID 1 MG TABLET Take 1 tablet by mouth once d* PYRIDOXINE (VITAMIN B6) 100 M* Take 25 mg by mouth once mickey* DULOXETINE 30 MG CAPSULE,FANY* Take 30 mg by mouth once mickey* GABAPENTIN 600 MG TABLET Take 1,200 mg by mouth three * ATORVASTATIN 80 MG TABLET Take 80 mg by mouth once mickey* PANTOPRAZOLE 20 MG TABLET,DEL* Take 20 mg by mouth once mickey* ZOLPIDEM 10 MG TABLET Take by mouth at bedtime as * ALPRAZOLAM 0.5 MG TABLET Take 0.5 mg by mouth three ti* CHOLECALCIFEROL (VITAMIN D3) * Take 2,000 Units by mouth onc* CYANOCOBALAMIN (VIT B-12) 500* Take by mouth once daily. MAGNESIUM 400 MG ( MAGNESIU* Take by mouth once daily. * ECOTRIN LOW STRENGTH 81 MG TA* Take one(1) tablet daily. * CALCIUM 500 WITH VITAMIN D2 5* Take one(1) tablet two(2) renny* * ALL PURPOSE MULTIVITAMIN-MIN * Take one(1) tablet daily. FOSAMAX ORAL Take 70 mg by mouth once each* Problem List As Of Date 02/01/2020 Noted Resolved CARDIAC DYSRHYTHMIA NOS [I49.9] DYSTHYMIC DISORDER [F34.1] ANEMIA NOS [D64.9] GENERAL OSTEOARTHROSIS [M15.9] More... LUMBAGO [M54.5] Sprain of foot, unspecified site [S93.609A] 08/26/2008 01/10/2020 Seronegative rheumatoid arthritis (HCC) [M06.00]08/17/2016 Angina of effort (HCC) [I20.8] 12/03/2019 01/10/2020 CAD (coronary artery disease) [I25.10] 12/25/2019 Obesity, Class I, BMI 30-34.9 [E66.9] 12/27/2019 Stenosis of right carotid artery [I65.21] 12/31/2019 More... S/P CABG x 3 [Z95.1] 12/31/2019 More... Right knee pain [M25.561] 01/10/2020 Other instructions from your clinician: You have done a great job recovering from you surgery, moving forward, here are the recommendations: Driving: Ok to drive now! Rehab Contacts: [phone] ([facility], floor 1) Restrictions: slowly increase weight bearing in a gradual fashion (5-10 lbs increment each month) over the next 2-3 months to allow further healing, then can gradually resume your normal activities depending on how you feel. Follow-ups: It is crucial to establish future appointments with your other providers: brim rounder , primary care doctor for medications refills/questions and future health management. You are to follow up here with the cardiac surgery team on as needed basis. Please don't hesitate to contact us if you have any concerns/questions: [phone] Thanks for coming in to see me today. Yulissa Enriquez APRN.SALOMÓN Medications Discontinued During This Encounter Prescriptions - Walker misc (Discontinued) Reported on 02/01/2020 - polyethylene glycol 3350 (MIRALAX, GLYCOLAX) 17 gram packet (Discontinued) Take 1 Packet by mouth once daily as needed (fro constipation). - senna-docusate (SENNA-S) 8.6-50 mg per tablet (Discontinued) Take 1 tablet by mouth twice daily. - benzocaine-menthol (CEPACOL) 15-3.6 mg lozg (Discontinued) Reported on 02/01/2020 Encounter Status:Closed by YULISSA ENRIQUEZ CNP on 02/01/20 [facility] PROGRESSon 02-01-2020 PROGRESS HNO ID: [id number] Author: Yulissa (Director Of Women'S Services [place]) SALOMÓN Enriquez Service: ? Author Type: Nurse Practitioner Type: Progress Notes Filed: 02/01/2020 2:10 PM Note Text: HPI: Nadira Benítez is a 64 year old woman with PMH significant for HTN, HLD, Ex-smoker of 10+ yr (quit 30 yrs ago), ?palpitations on BB, ?RA on Methotrexate, anterior and posterior cervical fusions, diverticulitis and partial bowl resection, general anxiety and depression, who returns to the office today for one month post-discharge follow up for s/p CABG x?3?(vernon-lad, svg-diag?and circ; R evh) performed on 12/27/[address] Chavez. Her post-operative course wascomplicated by acute on chronic pain requiring pain management. She transferred out of CVICU on POD 3 and home in stable condition on 12/31/2019. Interval events: [facility] with c/o fever,?worsening debilitated right?Leg pain. A set of blood culture was drawn to r/u for potential infection in the leg along with right leg ultrasound which rule out DVT. She then was transferred to [facility] for further management. Her XR of knee showed degenerative change of the right knee and a large joint effusion is noted. Right knee pain was evaluated by Ortho, recommended NSAID, ice and elevate. And patient was dc home on 01/09 after improvement on right knee pain. she has followed up with PCP got started on prednisone which relief the pain significantly. She is also following up with her Open Die Inspector for the right knee pain. Nadira Curiel Brendanstella reports home recovery as listed below: Episodes of dizziness or syncope: postrual related Chest pain: no Palpitations: no BP: reviewed per home lo/78, HR 60-70s Tolerating diet well without changing bowel habits: "got appetite back a few days ago". +diarrhea attributed to Iron tabs Fever, chills: no Activities at home with mild SOB or MILTON: walks 10 minutes 2-3 times a day Post surgical pain without pain medications.location of pain pt c/o is sternal wound, describing as throbbing, burning, 6-7/10, once a day. She has tried Motrin and Tylenol. Leg edema: no Sleep: getting better Energy: low but getting better everyday Subjective: Current Outpatient Medications Medication Sig - metoprolol tartrate, short acting, (LOPRESSOR) 50 mg tablet Take 1.5 tablets by mouth twice daily. - clopidogrel (PLAVIX) 75 mg tablet Take 1 tablet by mouth once daily. Start on 01/16. - ascorbic acid, vitamin C, (VITAMIN C) 500 mg tablet Take 1 tablet by mouth twice daily before meals. - aspirin 81 mg chewable tablet Take Aspirin 162 mg (2 tablets) daily until 01/16 when starting Plavix, then decrease Aspirin to 81 mg daily. - ferrous sulfate 325 mg (65 mg iron) tablet Take 1 tablet by mouth once daily. - acetaminophen (TYLENOL) 500 mg tablet Take 2 tablets by mouth every 6 hours as needed for Pain. - polyethylene glycol 3350 (MIRALAX, GLYCOLAX) 17 gram packet Take 1 Packet by mouth once daily as needed (fro constipation). - senna-docusate (SENNA-S) 8.6-50 mg per tablet Take 1 tablet by mouth twice daily. - hydrOXYchloroQUINE (PLAQUENIL) 200 mg tablet Take 200 mg by mouth twice daily. - methotrexate 2.5 mg tablet Take 8 tablets by mouth once each week. - folic acid 1 mg tablet Take 1 tablet by mouth once daily. - pyridoxine, vitamin B6, (VITAMIN B-6) 100 mg tablet Take 25 mg by mouth once daily. - DULoxetine (CYMBALTA) 30 mg capsule Take 30 mg by mouth once daily. - gabapentin (NEURONTIN) 600 mg tablet Take 1,200 mg by mouth three times daily. - atorvastatin (LIPITOR) 80 mg tablet Take 80 mg by mouth once daily. - pantoprazole DR (PROTONIX) 20 mg tablet Take 20 mg by mouth once daily. - zolpidem (AMBIEN) 10 mg tab Take by mouth at bedtime as needed. - ALPRAZolam (XANAX) 0.5 mg tablet Take 0.5 mg by mouth three times daily as needed for Anxiety. - Cholecalciferol, Vitamin D3, (VITAMIN D) 1,000 unit cap Take 2,000 Units by mouth once daily. - cyanocobalamin (B-12 DOTS) 500 mcg tab Take by mouth once daily. - magnesium oxide 400 mg cap Take by mouth once daily. - aspirin(ECOTRIN LOW STRENGTH 81 MG TAB) Take one(1) tablet daily. - calcium carbonate/vitamin d3(CALCIUM 500 WITH VITAMIN D 500 MG (1,250 MG)-200 UNIT TAB) Take one(1) tablet two(2) times daily. - ALL PURPOSE MULTIVITAMIN-MIN ORAL TAB Take one(1) tablet daily. - Walker misc Rolling walker (Patient not taking: Reported on 02/01/2020 ) - benzocaine-menthol (CEPACOL) 15-3.6 mg lozg Use 1 Lozenge as instructed every 2 hours as needed. (Patient not taking: Reported on 02/01/2020 ) - ALENDRONATE SODIUM (FOSAMAX ORAL) Take 70 mg by mouth once each week. No current facility-administered medications for this visit. Bactrim [Sulfamethoxazole-Trimet hopri] PAST MEDICAL HISTORY Diagnosis Date - Anemia, unspecified - Cardiac dysrhythmia, unspecified - Cervical vertebral fusion 2014 - Dysthymic disorder - Esophageal reflux - Generalized osteoarthrosis, unspecified site knees - Lumbago PAST SURGICAL HISTORY Procedure Laterality Date - ANTERIOR INTERBODY FUSION, CERVICAL 2014 - CABG (3) VEIN GRAFTS AND ARTERIAL GRAFT(S) 12/27/2019 - PAST SURGICAL HISTORY OF colon resected - PAST SURGICAL HISTORY OF cyst knee - ROTATOR CUFF REPAIR Right 2014 FAMILY HISTORY Problem Relation Age of Onset - Cancer Father LEUKEMIA AGE 56 - Osteoporosis Mother - Heart Mother CAD,CHF, renal failure - Breast Cancer Sister AGE 46 CA OF BONE - Breast Cancer Maternal Aunt - Breast Cancer Other MATERNAL COUSIN - Diabetes Brother - other (RENAL DIS) Sister DIALYSIS FOR 23 YRS, Social History Tobacco Use - Smoking status: Former Smoker - Smokeless tobacco: Never Used - Tobacco comment: quit at least 10 years ago Substance Use Topics - Alcohol use: Yes Comment: 2 times a year - Drug use: No Review of Systems Constitutional: Negative for chills, fever, malaise/fatigue and weight loss. HENT: Negative for sore throat. Respiratory: Negative for cough, sputum production, shortness of breath and wheezing. Cardiovascular: Negative for chest pain, palpitations, orthopnea, claudication, leg swelling and PND. Gastrointestinal: Positive for diarrhea. Negative for abdominal pain, blood in stool, constipation, melena, nausea and vomiting. Genitourinary: Negative for dysuria. Musculoskeletal: Positive for joint pain. Negative for falls. Severe right knee pain but better with prednisone Skin: No new lesions Neurological: Negative for dizziness, tingling, sensory change, focal weakness, weakness and headaches. Endo/Heme/Allergies: Does not bruise/bleed easily. Psychiatric/Behavioral: Negative for depression. Objective: One month post- op Chest X-ray is done and reviewed today. Lines, tubes, and devices: ?None. Lungs and pleura: ?No consolidation. No lung mass. No pleural effusion. No pneumothorax. Cardiomediastinal silhouette: ?Normal cardiomediastinal silhouette. Bones and soft tissues: ?Status post median sternotomy with normally aligned sternal wires. ?Incompletely-imaged cervical hardware. Physical Examination: Vitals:BP 102/72 Pulse 63 Resp 18 Wt 178 lb (80.7kg) SpO2 99% LMP 12/16/2004 BP w/Orthostatic Vitals Date and Time Orthostatic BP Orthostatic Pulse BP Pulse BP Position BP Site BP Cuff Size 02/01/20 1314 -- -- 102/72 63 -- Left Arm -- Peak Flow Date and Time PF Resp 02/01/20 1314 -- 18 Last 2 Encounter Wt Readings: Date: Wt: 02/01/2020 178 lb (80.7 kg) 01/14/2020 185 lb (83.9 kg) Physical Exam Constitutional: She is oriented to person, place, and time and well-developed, well-nourished, and in no distress. She appears not dehydrated. She appears healthy. She does not have a sickly appearance. No distress. HENT: Head: Normocephalic. Mouth/Throat: No oropharyngeal exudate. Neck: Normal range of motion. No hepatojugular reflux and no JVD present. Carotid bruit is not present. No edema and no erythema present. Cardiovascular: Normal rate, regular rhythm, S1 normal, S2 normal, normal heart sounds and intact distal pulses. PMI is not displaced. Exam reveals no gallop, no S3, no S4, no distant heart sounds, no friction rub and no decreased pulses. No murmur heard. Pulmonary/Chest: Effort normal and breath sounds normal. No respiratory distress. She has no wheezes. She has no rhonchi. She has no rales. She exhibits no tenderness. Sternal stability is normal. Abdominal: Soft. Bowel sounds are normal. She exhibits no distension and no mass. There is no abdominal tenderness. There is no rebound and no guarding. Musculoskeletal: General: No tenderness or edema. Right knee: She exhibits decreased range of motion, swelling and effusion. Neurological: She is alert and oriented to person, place, and time. Gait normal. Skin: Skin is warm and dry. No bruising, no lesion, no petechiae and no rash noted. She is not diaphoretic. No cyanosis or erythema. No pallor. Sternal incision is healed. No drainage, redness or foul odor. Same presentation appears on the chest tube wounds. SVG harvest site incision is healed. No drainage, redness or foul odor. Psychiatric: Mood and affect normal. Nursing note and vitals reviewed. Assessment and Plan: ASSESSMENT/PLAN: 1. S/P CABG x 3 - ICD9: V45.81, ICD10: Z95.1 (primary diagnosis) - c/w aspirin?81?mg, ?atorvastatin 80 mg, metoprolol 75 mg BID -Plavix 75 daily for 1 yr - ok to start cardiac rehab when right knee pain improved - f/u with Dr. Tate for further cardiac care 2. 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 Tate in 3 month again PCP follow up appointment: already has an OV with PCP In summary, Nadira Benítez is a 64 year old female that returns to the office today for one month post-discharge follow up for s/p CABG x?3?(vernon-lad, svg-diag?and circ; R evh) performed on 12/27/[address] Chavez. Her post-operative course was complicated by acute on chronic pain requiring pain management. Patient is doing well overall after the MCABG sugery, with no major complaints pertaining to CTS but having wax and wane severe right knee pain. Patient is released to drive, work and gradually resume normal daily activities. It's recommended that patient should start cardiac rehab from this point on, especially when her knee is better. she should follow up with her brim rounder and PCP as scheduled, and only needs to be seen here on a as needed basis. Thanks. Electronically signed by Yulissa Enriquez APRN.DEVELOPMENT AND HOUSING DIRECTOR on February 01, 2020, 1:17 PM Normal [facility] ALLIED HEALTHon 01-31-2020 ALLIED HEALTH HNO ID: [id number] Author: Matty Acosta (Rt) Service: Radiology Author Type: Air Bag Buffer Type: Allied Health Filed: 01/31/2020 12:23 PM Note Text: Radiology Service Progress Note PATIENT NAME: Nadira Benítez DATE OF SERVICE: January 31, 2020 TIME: 12:19 PM PATIENT IDENTITY VERIFICATION COMPLETED USING TWO (2) IDENTIFIERS: Name and Date of confirmed by patient verbally. FALL SCREENING: Has the patient had 2 falls in the last year or 1 fall with injury or currently using an Ambulatory Assistive Device (Walker, Cane, Wheelchair, Crutches, etc.)? No PATIENT GENDER DATA: Female. status: : No status: NO. PATIENT RELEVANT IMPLANT DATA REVIEWED: Not Applicable RADIOLOGY DEPARTMENT: General X-ray: Exam(s) Completed: Chest X-Ray PERIPHERAL IV DATA: Not applicable SIGNED BY: RT Dave January 31, 2020 12:19 PM Normal [facility] XR CHEST 2V FRONTAL/LATon XR CHEST 2V FRONTAL/LAT Final Report DATE OF EXAM: Jan 31 2020 12:26PM [id number] - XR CHEST 2V FRONTAL/LAT / PROCEDURE REASON: S/P CABG x 3 Physician Interpretation EXAMINATION: CHEST RADIOGRAPH (2 VIEW FRONTAL & LATERAL) CLINICAL HISTORY: S/P CABG x 3 MQ: [id number] EXAM DATE/TIME: 01/31/2020 12:26 PM COMPARISON: 12/30/2019, 01/09/2020 RESULT: Lines, tubes, and devices: None. Lungs and pleura: No consolidation. No lung mass. No pleural effusion. No pneumothorax. Cardiomediastinal silhouette: Normal cardiomediastinal silhouette. Bones and soft tissues: Status post median sternotomy with normally aligned sternal wires. Incompletely-imaged cervical hardware. IMPRESSION: No acute radiographic abnormality. Molder Sweep: PSCB Transcribe Date/Time: Jan 31 2020 1:23P Dictated by : UDAY MARIANO MD This examination was interpreted and the report reviewed and electronically signed by: UDAY MARIANO MD on Jan 31 2020 1:23PM EST Normal [facility] PROGRESSon 01-17-2020 PROGRESS HNO ID: [id number] Author: Yulissa (Director Of Women'S Services Smelter Operator) SALOMÓN Enriquez Service: ? Author Type: Nurse Practitioner Type: Progress Notes Filed: 01/17/2020 4:15 PM Note Text: Heart, Vascular [facility] Thor[facility] [place] [facility] region Virtual Visit ESTABLISHED/ POST-OP follow up Date: 01/17/2020 Patient: Nadira Benítez : 1955 This is a virtual visit. It required patient-provider interaction for the medical decision making as documented below. HPI: Nadira Benítez is a 64 year old woman with PMH significant for HTN, HLD, Ex-smoker of 10+ yr (quit 30 yrs ago), palpitations on BB, RA on Methotrexate, anterior and posterior cervical fusions, diverticulitis and partial bowl resection, general anxiety and depression, who returns virtually today for post-discharge follow up for right knee pain s/p CABG x?3?(vernon-lad, svg-diag?and circ; R evh) performed on 12/27/[address] Chavez. Patient's initial post-op recovery was complicated by acute on chronic pain requiring pain management. She transferred out of CVICU on POD 3 and home in stable condition on 12/31/2019. Interval events since initial discharge: readmitted to [facility] with c/o fever,?worsening debilitated right?Leg pain. A set of blood culture was drawn to r/u for potential infection in the leg along with right leg ultrasound which rule out DVT. She then was transferred to [facility] for further management. Her XR of knee showed degenerative change of the right knee and a large joint effusion is noted. Right knee pain was evaluated by Ortho, recommended NSAID, ice and elevate. And patient was dc home on 01/09 after improvement on right knee pain. Nadira Benítez reports home recovery as listed below: C/O: excruciating pain in right knee down to her right foot, started last night. And prior to that, she has been walking and recovering as per usual since discharged from Hospital last week, walking includes outdoor space. No F/C. Pain re-occurred last night has put her back in bed and restricted her from moving . Pain is the same as what brought her back the 2nd time, same location. She continue taking Motrin 400 mg BID and she has not weaned off. Additionally, she also takes Oxy IR, takes Tylenol in between Motrin. Episodes of dizziness/lightheadednes s/syncope: No Angina: No Palpitations: No BP: reviewed per home log: BP 120/78, HR 76-80 Tolerating diet well without changing bowel habits: No Fever, chills: No, had a temp of 99 this am Activities at home without SOB or MILTON: No, walks 500 ft twice a day Post surgical pain: No, without Narcotics and takes Tylenol as needed at this time. She rates 2/10 from sternotomy, soreness. Leg edema: Right foot is slightly swollen Sleep: good Energy: good Subjective: HISTORY REVIEWED (electronic chart updated): PAST MEDICAL HISTORY Diagnosis Date - Anemia, unspecified - Cardiac dysrhythmia, unspecified - Cervical vertebral fusion 2014 - Dysthymic disorder - Esophageal reflux - Generalized osteoarthrosis, unspecified site knees - Lumbago PAST SURGICAL HISTORY Procedure Laterality Date - ANTERIOR INTERBODY FUSION, CERVICAL 2015 - CABG (3) VEIN GRAFTS AND ARTERIAL GRAFT(S) 12/27/2019 - PAST SURGICAL HISTORY OF colon resected - PAST SURGICAL HISTORY OF cyst knee - ROTATOR CUFF REPAIR Right 2015 FAMILY HISTORY Problem Relation Age of Onset - Cancer Father LEUKEMIA AGE 56 - Osteoporosis Mother - Heart Mother CAD,CHF, renal failure - Breast Cancer Sister AGE 46 CA OF BONE - Breast Cancer Maternal Aunt - Breast Cancer Other MATERNAL COUSIN - Diabetes Brother - other (RENAL DIS) Sister DIALYSIS FOR 23 YRS, Social History Tobacco Use - Smoking status: Former Smoker - Smokeless tobacco: Never Used - Tobacco comment: quit at least 10 years ago Substance Use Topics - Alcohol use: Yes Comment: 2 times a year - Drug use: No Current Outpatient Medications Medication Sig - clopidogrel (PLAVIX) 75 mg tablet Take 1 tablet by mouth once daily. Start on 01/16. - ascorbic acid, vitamin C, (VITAMIN C) 500 mg tablet Take 1 tablet by mouth twice daily before meals. - aspirin 81 mg chewable tablet Take Aspirin 162 mg (2 tablets) daily until 01/16 when starting Plavix, then decrease Aspirin to 81 mg daily. - ferrous sulfate 325 mg (65 mg iron) tablet Take 1 tablet by mouth once daily. - Walker misc Rolling walker - metoprolol tartrate, short acting, (LOPRESSOR) 50 mg tablet Take 1 tablet by mouth three times daily. - acetaminophen (TYLENOL) 500 mg tablet Take 2 tablets by mouth every 6 hours as needed for Pain. - benzocaine-menthol (CEPACOL) 15-3.6 mg lozg Use 1 Lozenge as instructed every 2 hours as needed. - lidocaine (SALONPAS) 4 % patch Apply 1 Patch as directed once daily. (Patient not taking: Reported on 01/14/2020 ) - polyethylene glycol 3350 (MIRALAX, GLYCOLAX) 17 gram packet Take 1 Packet by mouth once daily as needed (fro constipation). - senna-docusate (SENNA-S) 8.6-50 mg per tablet Take 1 tablet by mouth twice daily. - hydrOXYchloroQUINE (PLAQUENIL) 200 mg tablet Take 200 mg by mouth twice daily. - methotrexate 2.5 mg tablet Take 8 tablets by mouth once each week. - folic acid 1 mg tablet Take 1 tablet by mouth once daily. - pyridoxine, vitamin B6, (VITAMIN B-6) 100 mg tablet Take 25 mg by mouth once daily. - DULoxetine (CYMBALTA) 30 mg capsule Take 30 mg by mouth once daily. - gabapentin (NEURONTIN) 600 mg tablet Take 1,200 mg by mouth three times daily. - ALENDRONATE SODIUM (FOSAMAX ORAL) Take 70 mg by mouth once each week. - atorvastatin (LIPITOR) 80 mg tablet Take 80 mg by mouth once daily. - pantoprazole DR (PROTONIX) 20 mg tablet Take 20 mg by mouth once daily. - zolpidem (AMBIEN) 10 mg tab Take by mouth at bedtime as needed. - ALPRAZolam (XANAX) 0.5 mg tablet Take 0.5 mg by mouth three times daily as needed for Anxiety. - Cholecalciferol, Vitamin D3, (VITAMIN D) 1,000 unit cap Take 2,000 Units by mouth once daily. - cyanocobalamin (B-12 DOTS) 500 mcg tab Take by mouth once daily. - magnesium oxide 400 mg cap Take by mouth once daily. - aspirin(ECOTRIN LOW STRENGTH 81 MG TAB) Take one(1) tablet daily. - calcium carbonate/vitamin d3(CALCIUM 500 WITH VITAMIN D 500 MG (1,250 MG)-200 UNIT TAB) Take one(1) tablet two(2) times daily. - ALL PURPOSE MULTIVITAMIN-MIN ORAL TAB Take one(1) tablet daily. No current facility-administered medications for this visit. ALLERGIES Allergen Reactions - Bactrim [Sulfametho* Rash REVIEW OF SYSTEMS: Review of Systems Constitutional: Negative for chills, fever, malaise/fatigue and weight loss. HENT: Negative for sore throat. Respiratory: Negative for cough, sputum production, shortness of breath and wheezing. Cardiovascular: Negative for chest pain, palpitations, orthopnea, claudication, leg swelling and PND. Gastrointestinal: Negative for abdominal pain, blood in stool, constipation, diarrhea, melena, nausea and vomiting. Genitourinary: Negative for dysuria. Musculoskeletal: Positive for joint pain. Negative for falls. Excruciating right knee pain Skin: No new lesions Neurological: Negative for dizziness, tingling, sensory change, focal weakness, weakness and headaches. Endo/Heme/Allergies: Does not bruise/bleed easily. Psychiatric/Behavioral: Negative for depression. Objective: Physical Exam Constitutional: She is oriented to person, place, and time and well-developed, well-nourished, and in no distress. Patient is seen via video, laying in bed. Neurological: She is alert and oriented to person, place, and time. Skin: Normal post-op wounds. VIDEO EXAM: (if completed, performed via video enabled technology) Vitals:LMP 12/16/2004 Last 2 Encounter Wt Readings: Date: Wt: 01/14/2020 185 lb (83.9 kg) 01/08/2020 187 lb 13.3 oz (85.2 kg) ASSESSMENT AND PLAN: ASSESSMENT/PLAN: 1. S/P CABG x 3 - ICD9: V45.81, ICD10: Z95.1 (primary diagnosis) - c/w aspirin?162?mg, ?atorvastatin 80 mg, metoprolol 75 mg BID - XR CHEST 2V FRONTAL/LAT IN 2-3 weeks - ok to do cardiac rehab in 2-3 weeks pending on her right knee 2. Pain, postoperative, acute - ICD9: 338.18, ICD10: G89.18 - denies sternotomy /EVH site pain, rather having acute pain in right knee - will be seeing PCP + RA doc for further management - continue taking Motrin 400 mg TID for pain control - ICE, ELEVATED - refilled Oxy for another 5 days PDMP website checked and validated. All prescriptions have been APPROPRIATELY filled. No suspicious activity was identified. 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 Tate PCP follow up appointment: will be contacting PCP In summary, Nadira Benítez is a 64 year old female that has virtual visit post -discharge follow up for right knee pain s/p CABG x?3?(vernon-lad, svg-diag?and circ; R evh) performed on 12/27/[address] Chavez. From CTS recovery standpoint, patient is doing well overall without major complaints. Her recovery has been limited due to acute right arthritic knee pain. Patient is recommended to f/u with her RA or PCP provider for further management. Patient is to follow back in 2-3 weeks for her final follow up. she is recommended to continue weight limits of 10 lbs and no driving until next follow up visit. Patient Instructions Weight: Please continue monitoring daily weight; Activity:Continue gradual increase in activities as tolerated; Diet: Heart healthy diet with good protein intake; green leafy vegetable, low salt, and 2 L fluid daily Devices: Wear supportive stockings until leg swelling improved; posthorax vest (up to 1 month) during daytime and off at nighttime; Restrictions: Continue the weight limit to less than 10 lbs (for one month), and no driving until cleared by your providers; Advice: please change position slowly to prevent fall due to dizziness. Upcoming appointments: Please follow up back here in 2-3 weeks with checks x-ray prior to that appointment Please make cardiology appointment in 4-6 weeks: Dr. Tate Please make primary care appointment soon for your right knee pain. Thanks for coming in to see me today. Please call us if you have any concerns/questions: [phone] Yulissa Enriquez APRN.SALOMÓN I spent more than 21-40 minutes [id number] with the patient and over half the time was devoted to counseling and/or coordination of care. Yulissa Enriquez APRN.CNP January 17, 2020 11:46 AM Normal [facility] CASE MANAGEMon 01-10-2020 CASE MANAGEM HNO ID: [id number] Author: Jenae (Rn) SALVATORE Adkins Service: Care Management Author Type: Registered Nurse Type: Care Mgt Progress Note Filed: 01/10/2020 4:37 PM Note Text: CARE MANAGEMENT DISCHARGE NOTE SERVICE DATE: 01/10/2020 SERVICE TIME: 4:35 PM LOS: 1 day Admission Date: 01/09/2020 DISCHARGE ARRANGEMENT (list agency and phone number) Discharge Arrangement: Home Mcfp Care: PT;OT;Nursing Provider Name: [facility] CAREGIVER ASSESSMENT: Caregiver is ready, willing and able to meet the patient's needs as recommended by the inter-professional team:: Yes Does the patient have an acute stroke diagnosis, or has the patient had a stroke during this admission?: No HANDOFF COMMUNICATION: Handoff to: Primary Care Physician Primary Care Physician Name/Phone: Dr Maria Teresa Goff TRANSPORTATION ARRANGEMENTS: Transportation Arrangements: Car ADDITIONAL CONTACT RESOURCES: Needs Prior to Discharge: Ready for Discharge;None Pt agreeable to above [facility] plan and son will provide transport. SIGNATURE: Jenae Adkins RN PATIENT NAME: Nadira Benítez DATE: January 10, 2020 TIME: 4:35 PM PAGER/CONTACT #: [phone] [facility] Fabienne 01-10-2020 SALOMÓNN Telephone (KAMALJIT) -------- NADIRA BENÍTEZ ([id number]) 1955 F Date Time Provider Department 01/10/20 ELENO CHAVEZ During your visit today, we recorded the following information about you: Allergies As of Date: 01/10/2020 Noted Allergy Reaction BACTRIM (SULFAMETHOXAZOLE-TRIMET H*12/15/2004 2 - Rash Date Reviewed: 01/09/2020 Reviewed by: Alana (Rn) SALVATORE Camacho - Fully Assessed 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: Results [95] Prescriptions as of 01/10/2020 Sig: IBUPROFEN 600 MG TABLET Take 1/2 tablet by mouth ever* CLOPIDOGREL 75 MG TABLET Take 1 tablet by mouth once d* ASCORBIC ACID (VITAMIN C) 500* Take 1 tablet by mouth twice * ASPIRIN 81 MG CHEWABLE TABLET Take Aspirin 162 mg (2 tablet* FERROUS SULFATE 325 MG (65 MG* Take 1 tablet by mouth once d* ALICE mascorro OXYCODONE 5 MG TABLET Take 1 tablet by mouth every * METOPROLOL TARTRATE 50 MG TAB* Take 1 tablet by mouth three * ACETAMINOPHEN 500 MG TABLET Take 2 tablets by mouth every* BENZOCAINE 15 MG-MENTHOL 3.6 * Use 1 Lozenge as instructed e* LIDOCAINE 4 % TOPICAL PATCH Apply 1 Patch as directed onc* POLYETHYLENE GLYCOL 3350 17 G* Take 1 Packet by mouth once d* SENNOSIDES 8.6 MG-DOCUSATE SO* Take 1 tablet by mouth twice * HYDROXYCHLOROQUINE 200 MG TAB* Take 200 mg by mouth twice da* METHOTREXATE SODIUM 2.5 MG TA* Take 8 tablets by mouth once * FOLIC ACID 1 MG TABLET Take 1 tablet by mouth once d* PYRIDOXINE (VITAMIN B6) 100 M* Take 25 mg by mouth once mickey* DULOXETINE 30 MG CAPSULE,FANY* Take 30 mg by mouth once mickey* GABAPENTIN 600 MG TABLET Take 1,200 mg by mouth three * FOSAMAX ORAL Take 70 mg by mouth once each* ATORVASTATIN 80 MG TABLET Take 80 mg by mouth once mickey* PANTOPRAZOLE 20 MG TABLET,DEL* Take 20 mg by mouth once mickey* ZOLPIDEM 10 MG TABLET Take by mouth at bedtime as * ALPRAZOLAM 0.5 MG TABLET Take 0.5 mg by mouth three ti* CHOLECALCIFEROL (VITAMIN D3) * Take 2,000 Units by mouth onc* CYANOCOBALAMIN (VIT B-12) 500* Take by mouth once daily. MAGNESIUM 400 MG ( MAGNESIU* Take by mouth once daily. * ECOTRIN LOW STRENGTH 81 MG TA* Take one(1) tablet daily. * CALCIUM 500 WITH VITAMIN D2 5* Take one(1) tablet two(2) renny* * ALL PURPOSE MULTIVITAMIN-MIN * Take one(1) tablet daily. Problem List As Of Date 01/10/2020 Noted Resolved CARDIAC DYSRHYTHMIA NOS [I49.9] DYSTHYMIC DISORDER [F34.1] ANEMIA NOS [D64.9] GENERAL OSTEOARTHROSIS [M15.9] More... LUMBAGO [M54.5] Sprain of foot, unspecified site [S93.609A] 08/26/2008 01/10/2020 Seronegative rheumatoid arthritis (HCC) [M06.00]08/17/2016 Angina of effort (HCC) [I20.8] 12/03/2019 01/10/2020 CAD (coronary artery disease) [I25.10] 12/25/2019 Obesity, Class I, BMI 30-34.9 [E66.9] 12/27/2019 Stenosis of right carotid artery [I65.21] 12/31/2019 More... S/P CABG x 3 [Z95.1] 12/31/2019 More... Right knee pain [M25.561] 01/10/2020 Encounter Status:Closed by YULISSA ENRIQUEZ CNP on 01/11/20 Normal [facility] Coronavirus 2019on 0 COVID 19 Result BIOLOGY LABORATORY ASSISTANT Negative Normal [facility] Comment on above: Result Comment: Nega tive for COVID19 (SARS CoV2) by PCR. This test was developed and its performance characteristics determined by [facility] [place]. This test has been authorized by FDA under an Emergency Use Authorization (EUA). This test has been validated in accordance with the FDA's Guidance Document Policy for Diagnostics Testing in Laboratories Certified to Perform High Complexity Testing under CLIA prior to Emergency use Authorization for Coronavirus Disease 2019 during the Public Health Emergency" issued on June 09, 2019. Performing Laboratory: [facility] [address] [place] [address] Performed By: #### H A1C #### [place] [address] Hemogramon 01-10-2020 Erythrocyte distribution width (RBC) [Ratio] 13.8 % Normal 11.7-14.4 [facility] Comment on above: Performed By: #### G LMET #### [place] [address] Hematocrit (Bld) [Volume fraction] 24.0 % Low 34.1-44.9 [facility] Comment on above: Performed By: #### G LMET #### [place] [address] Hemoglobin (Bld) [Mass/Vol] 7.7 g/dL Low 11.2-15.7 [facility] Comment on above: Performed By: #### G LMET #### [place] [address] MCH (RBC) [Entitic mass] 29.6 pg Normal 25.6-32.2 [facility] Comment on above: Performed By: #### G LMET #### [place] [address] MCHC (RBC) [Mass/Vol] 32.1 % Normal 31.6-34.8 [facility] Comment on above: Performed By: #### G LMET #### [place] [address] MCV (RBC) [Entitic vol] 92.3 fL Normal 79.4-94.8 [facility] Comment on above: Performed By: #### G LMET #### [facility] [address] [place], [place] [address] Platelet mean volume (Bld) [Entitic vol] 9.4 fL Normal 9.4-12.3 [facility] Comment on above: Performed By: #### G LMET #### [facility] [address] [place], [place] [address] Platelets (Bld) [#/Vol] 389 thou/cmm High 182-369 [facility] Comment on above: Performed By: #### G LMET #### [facility] [address] [place] [address] RBC (Bld) [#/Vol] 2.60 mil/cmm Low 3.93-5.22 [facility] Comment on above: Performed By: #### G LMET #### [facility] [address] [place] [address] RDW SD 46.6 fl High 36.4-46.3 [facility] Comment on above: Performed By: #### G LMET #### [facility] [address] [place] [address] WBC (Bld) [#/Vol] 7.30 thou/cmm Normal 3.98-10.04 [facility] Comment on above: Performed By: #### G LMET #### [facility] [address] [place] [address] PROGRESSon 01-10-2020 PROGRESS HNO ID: [id number] Author: Yulissa (Director Of Women'S Services Smelter Operator) SALOMÓN Enriquez Service: Cardiovascular Surgery Author Type: Nurse Practitioner Type: Progress Notes Filed: 01/10/2020 9:43 AM Note Text: CARDIOTHORACIC SURGERY POSTOP PROGRESS NOTE SERVICE DATE: 01/10/2020 SERVICE TIME: 9:26 AM Subjective CABG X 3 (VERNON-LAD, SVG-Diag, SVG-LCx, EVH) ? DATE OF SURGERY: 12/27/2019 POSTOP DAY #14 LOS: 1 HPI: This is a 64 year old woman s/p recent CABG on 12/27/[address] Chavez, who presented to [facility] with fever, worsening debilitated right Leg pain. Patient was dc home on POD#4 after an usual uncomplicated post-op recovery s/p CABG on 12/30. She has had her 1 week post discharge virtual follow up with unremarkable recovery and has been walking as instructed until Tuesday due to severe right lower leg pain. 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 In [facility] ED, she was found febrile and tachycardiac. A set of blood culture was drawn to r/u for potential infection in the leg along with right leg ultrasound to rule out DVT. US right leg r/o DVT. CT R thigh showed: Soft tissue density in the right medial thigh of intermediate etiology probably representing thrombosed greater saphenous vein no evidence of abscess. Given recent CABG in [facility], she was later transferred to [facility] for further eval and management. INTERVAL EVENTS / PERTINENT ROS: patient has had ortho eval yesterday with recommendation of pain management with NSAIDs, ICE and elevate. Her XR of knee showed degenerative change of the right knee and a large joint effusion is noted. Patient is seen today, who reports improvement of her pain and currently able to walk in room independently without having the same severity of pain. Her HR continues run in mid 100s and 4 beat run of VT was noted per nurse. Objective Admission Weight: 85.2 kg (187 lb 13.3 oz) BP 116/67 Pulse 90 Temp 36.5 ?C (97.7 ?F) (Oral) Resp 18 Ht 162.6 cm (5' 4") Wt 85.2 kg (187 lb 13.3 oz) LMP 12/16/2004 SpO2 99% BMI 32.24 kg/m? Body surface area is 1.96 meters squared. Min/Max/Average Temperature AND Blood Pressure: Temp (24hrs), Av.9 ?C (98.5 ?F), Min:36.5 ?C (97.7 ?F), Max:37.5 ?C (99.5 ?F) Systolic (24hrs), Av , Min:99 , Max:122 Diastolic (24hrs), Av, Min:55, Max:73 Intake/Output Summary (Last 24 hours) at 01/10/2020 0927 Last data filed at 01/09/2020 6784 Gross per 24 hour Intake ? Output 2700 ml Net -2700 ml TELEMETRY: sinus tachycardia PHYSICAL EXAM: General Appearance: well developed and no distress Lungs: clear and respiratory effort: normal Heart: regular rhythm, S1, S2 normal and no murmur Peripheral Vascular/Arteries: pulses intact and radial +2 Abdomen: soft, non-tender and bowel sounds present Genitourinary: voiding without difficulty Musculoskeletal: improving pain on the right knee Neurologic/Psychiatric: oriented to time, place and person and steady gait Extremities: normal exam of the extremities and no edema Lines, Drains, and Airways Line Peripheral 01/09/20 1334 Short Left Forearm 20 Gauge less than 1 day DATA: Diagnostic tests reviewed for today's visit: Significant Lab Results: reviewed RX knee: There is mild medial compartment narrowing with tricompartmental marginal osteophytes. ?Degree of patellofemoral compartment narrowing is suboptimally evaluated with only a lateral view. ?Suspect a small calcified joint body in the suprapatellar pouch adjacent to the superior pole patella. ?Chondrocalcinosis. ?There is a large joint effusion. ?No acute fracture. ?Surgical clips are in the soft tissue of the knee medially. Recent Labs 01/10/20 0554 01/09/20 0645 RBC 2.60* 2.44* WBC 7.30 12.54* HB 7.7* 7.4* HCT 24.0* 22.0* PLT 389* 400* NA -- 131* K -- 3.5* CHLOR -- 99 CO2 -- 22 BUN -- 5* CREAT -- 0.49* GLUC -- 119* CA -- 8.5 ANION -- 10 Recent Labs 01/09/20 0306 UPH 5.5 SPGR 1.028 UGLUC NEGATIVE UBILI NEGATIVE UKET NEGATIVE UPROT NEGATIVE Assessment/Plan Active Problems: Right knee pain: -palpable right knee effusion, likely arthritic in nature -Knee XR: degenerative changes - uric acid to r/o gout - dc IV antibiotics - continue pain meds: Oxycodone and Tylenol as needed - Added ibuprofen 600 mg TID - ICE, ELEVATE and compression - Ortho signed off - will need home PT+OT ? S/P CABG x 3 POA: Yes - c/w current management: aspirin 162 mg, atorvastatin 80 mg, metoprolol 50 mg 3 times daily -will consider up titrate BB to 100 mg BID VS keeping 50 mg TID as her tachycardiac might due to her anemia status - Plavix 75 mg, hold for now given starting NSAIDs to reduced bleeding risk Tests/Labs Ordered: 1. None Dispo:possible home today/tomorrow with home VNS+PT+OT SIGNATURE: Yulissa Enriquez APRN.CNP PATIENT NAME: Nadira Benítez DATE: January 10, 2020 TIME: 9:26 AM PAGER/CONTACT #:[phone] [phone] Normal [facility] THERAPY NTon 01-10-2020 THERAPY NT HNO ID: [id number] Author: Matthew (Pt) Wing Service: Physical Therapy Author Type: Physical Therapist Type: Therapy (PT/OT/Speech/Resp) Filed: 01/10/2020 10:00 AM Note Text: Physical Therapy Evaluation SERVICE DATE: 01/10/2020 SERVICE TIME: 921 to 945 ROOM: [place] [address] Recommended Discharge Disposition: Home PT Recommended Discharge Disposition Comments: Patient is functioning below baseline with need for use of FWW secondary to right knee pain. Patient would benefit from continued home health therapy to allow for safe return to home environment with reduced risk of falls Anticipated Discharge Needs: Physical Assist at Home Physical Assist at Home for: Laundry;Meals;Shopping;T ransportation Recommended Discharge Equipment: Wheeled Walker PT 6 Clicks Score: 18 Precautions/Activity Restrictions: Weight Bearing Restrictions;Fall Risk Extremity With Weight Bearing Restricted: Right Lower Extremity Left Lower Extremity Weight Bearing Status: WBAT Current Hospital Course: Patient to hospital on 01/09/20 secondary to worsening right knee pain over the past few days. Patient with recent CABG x 3 on 12/27/19 and had discharged home with home health therapy with good progress. No evidence of infection/abscess noted on imaging. Patient diagnosed with acute OA flare up and is being treated medically for acute diagnoses Reason for Hospital Admission: Right knee pain after recent CABG x 3 Relevant Past Medical History: anemia, CAD, cervical fusion, OA, CABG x 3 Response to Therapy Interventions: Good participation in activities, Improved tolerance for activity, Pain Continue skilled needs due to: Functional mobility/skill impairments, Safety concerns Physical Therapy Problem List: Pain;Decreased Activity Tolerance;Safety Deficits;Decreased Strength;Functional Mobility Impairment;Balance Impaired Treatment Interventions: Education;Strengthening; Functional Mobility Training;Balance Training;Neuromuscular Re-education Home Environment Patient Lives With: Family(son and his family) Assistance Available: 24 Hour(son is working from home) Entry To Home: No Stairs Number Of Stairs To Bed/Bath: 0 Tub/Shower Type: walk in shower Prior Functional Level: Within Functional Limits Prior Functional Level Comments: Patient was completely independent prior to recent CABG surgery on 12/27/19 without use of AD in community. Patient with recent discharge from hospital ~1 week ago after CABG and was receiving home health PT services with good tolerance/progress. Patient Report: "the pain is starting to get better" CURRENT FUNCTIONAL STATUS: Most recent performance mobility performed during session in bold, other mobility completed during prior session and may no longer be correct or appropriate to complete. Current Functional Mobility Assist Level Additional Information Rolling Contact Guard Assistance Supine to Sit Contact Guard Assistance;Additional Information increased time to complete with VCs for sequencing and use of bed rail Sit to Supine Contact Guard Assistance;Additional Information slight physical assist to clear RLE at EOB. increased time Scooting Sit to Stand Contact Guard Assistance;Additional Information VCs for sequencing of transfer in regards to hand placement with good carryover Stand to Sit Contact Guard Assistance;Additional Information VCs to square up with surface prior to sitting. Bed to Chair Toilet/Commode Gait Contact Guard Assistance Gait Device: Wheeled Walker Gait Distance (feet): 30'x1 Stairs Curb Step Car Transfer Blank tejada indicate activity not attempted Gait Deviations Right Lower Extremity: Weight bearing decreased;Stance time decreased General Deviations/Observations: Antalgic gait;Flexed trunk posture;UE weight bearing on assistive device excessive;Step length decreased;Patti decreased Range of Motion: WFL Strength: WFL Balance: Dynamic Sitting;Dynamic Standing Dynamic Sitting Balance: Good Patient accepts moderate challenge, able to maintain balance while picking up object off floor Dynamic Standing Balance: Good Patient accepts moderate challenge, able to maintain balance while picking up object off floor Activity Tolerance: Standing Activity Standing Activity: ambulation Standing Activity Tolerance (in minutes): 1 JH-HLM: 7: Walk 25 feet or more Learning/Educational Needs: Discharge Plan;Disease Process;Functional Activities/Mobility;Reha bilitation Techniques and Procedures;Safety Goals for Plan of Care: Patient /Caregiver Goals: Go Home Able to perform HEP with: Independent Transfer supine to/from sit with: Independent Transfer sit to/from stand with: Independent Ambulate with: Supervision Distance: 100'x1 Device: Wheeled Walker Transfer: Stand pivot transfer independently with FWW Rehab Potential: Good Patient will be discontinued from Physical Therapy when no further skilled needs are identified in this setting. PLAN: Treatment Frequency (times per week): 5(2-4) Current admission Plan of Care developed with: Patient TREATMENT INTERVENTIONS: Therapy Diagnosis: Reduced mobility-other Interventions Provided: Evaluation;Therapeutic Activity (16353) $ Evaluation-Moderate (23339) Billed Units: 1 unit Therapeutic Activity (38913) Treatment Minutes: 9 $ Therapeutic Activity (10237) Billed Units: 1 unit Training AND education provided in: Assistive device use, Bed mobility, Benefits of in-hospital mobility, Discharge planning, Disease specific education, Falls prevention, Gait pattern, reduction of deviations, Role of Physical Therapy, Sitting balance, Standing balance, Transfer training The following therapeutic skills were used: Activity dosing, Assessment of tolerance including vitals response to activity, Cues for sequencing/proper technique for activity, Cuing verbal, Physical assist Total Timed Code Treatment Minutes: 9 Total Treatment Time (minutes): 24 Please see discipline specific clinical documentation flowsheet for complete details for this therapy evaluation/treatment. SIGNATURE: Matthew Dimas PT PATIENT NAME: Nadira Benítez DATE: January 10, 2020 TIME: 9:59 AM Normal [facility] Basic Metabolic Panelon 09-3 Anion gap [Moles/Vol] 10 mmol/L Normal 9-18 [facility] Comment on above: Performed By: #### C BC1 #### [facility] [address] [place], [place] [address] Calcium [Mass/Vol] 8.5 mg/dL Normal 8.5-10.2 [facility] Comment on above: Performed By: #### C BC1 #### [facility] [address] [place], [place] [address] Chloride [Moles/Vol] 99 mmol/L Normal 97-105 [facility] Comment on above: Performed By: #### C BC1 #### [facility] [address] [place], [place] [address] CO2 Blood 22 mmol/L Normal 22-30 [facility] Comment on above: Performed By: #### C BC1 #### [facility] [address] [place], [place] [address] Creatinine [Mass/Vol] 0.49 mg/dL Low 0.58-0.96 [facility] Comment on above: Performed By: #### C BC1 #### [facility] [address] [place], [place] [address] Glucose [Mass/Vol] 119 mg/dL High 74-99 [facility] Comment on above: Result Comment: The [place] Diabetes Association (ADA) provides guidance for cutoff values for fasting glucose and random glucose. The ADA defines fasting as no caloric intake for at least 8 hours.Fasting plasma glucose results between 100 to 125 mg/dL indicate increased risk for diabetes (prediabetes). Fasting plasma glucose results greater than or equal to 126 mg/dL meet the criteria for diagnosis of diabetes. In the absence of unequivocal hyperglycemia, results should be confirmed by repeat testing. In a patient with classic symptoms of hyperglycemia or hyperglycemic crisis, random plasma glucose results greater than or equal to 200 mg/dL meet the criteria for diagnosis of diabetes. Reference: Standards of Medical Care in Diabetes 2016; [place] Diabetes Association. Diabetes Care. 2016;39(Suppl 1). Performed By: #### C BC1 #### [facility] [address] [place], [place] [address] Potassium [Moles/Vol] 3.5 mmol/L Low 3.7-5.1 [facility] Comment on above: Performed By: #### C BC1 #### [facility] [address] [place], [place] [address] Sodium [Moles/Vol] 131 mmol/L Low 136-144 [facility] Comment on above: Performed By: #### C BC1 #### [facility] [address] [place], [place] [address] Urea nitrogen [Mass/Vol] 5 mg/dL Low 7-21 [facility] Comment on above: Performed By: #### C BC1 #### [facility] [address] [place], [place] [address] CASE MGT INIT ASSESon 2019 CASE MGT INIT ASSES HNO ID: [id number] Author: Elba EspinozaRn) Totz, RN Service: Care Management Author Type: Registered Nurse Type: Care Mgt Initial Assessment Filed: 01/09/2020 3:11 PM Note Text: CARE MANAGEMENT: ASSESSMENT AND DISCHARGE PLAN SERVICE DATE: January 09, 2020 SERVICE TIME: 3:08 PM PRIMARY CARE PHYSICIAN: Maria Teresa Goff DO ADMISSION STATUS: Inpatient Needs Prior to Discharge: Discharge Prescriptions;OT/PT Evaluation;Pharmacy Bedside Delivery MEDICAL: [employer] MEDICARE PPO Patient/Slp Teacher Stated Goals: To have reduction in pain;To have reduction in symptoms;To improve my functional status;To return home to life as it was Health Insurance: [employer] Medicare Health Issues Impacting Discharge Plan: Uncontrolled Uncontrolled: arthritis Last Discharge Date: 12/31/19 Is this Within the Past 30 days? Last discharge within 30 days: No Advance Directive: Current Advance Directive: None Account Associate Attempted to Assist with AD Completion: Yes Action: Education Provided Health LiteracyHow often do you need to have someone help you when you read instructions, pamphlets, or other written material from your doctor or pharmacy? : 2 - Rarely How confident are you filling out medical forms by yourself?: 2 - Quite a bit If Patient scores > 3 on either question, the following interventions were put into place:: Patient did not score > 3 on either question. Baseline Mental Status Prior to this Illness what was the patient's Baseline Mental Status?: Alert AND Oriented Prior to this illness, has anyone described the patient having any of the following behaviors?: Not Applicable Relationship of the informant to the patient:: Self Functional Status: Independent Does Patient Currently Receive Any Community Services or Home Care?: None Equipment Prior to Admission: None SOCIAL: Living Arrangements: Home Lives With: Son Financial Resources: EmployedPrimary Contact: Extended Emergency Contact Information Primary Emergency Contact: Rickey Benítez [address]: [address] [place] [address] Relation: Son Secondary Emergency Contact: Robyn Benítez Mobile Relation: Daughter Supportive Patient Contact:: Unable to assess at this time Social Needs Food insecurity Worry: Never true Inability: Never true Resources Needed: No Social Needs Financial resource strain: Not hard at all Social Needs Transportation needs Medical: No Non-medical: No Caregiver AssessmentCaregiver is ready, willing and able to meet the patient's needs as recommended by the inter-professional team:: No Caregiver needed Does the patient have an acute stroke diagnosis, or has the patient had a stroke during this admission?: No Patient's transition needs and plan for meeting these needs: Home Patient's perception of need for this admission: leg pain Medication Adherance I am convinced of the importance of my prescription medication: 0 - Agree Completely I worry that my prescription medication will do more harm than good to me : 0 - Disagree Completely I feel financially burdened by my jhw-di-zndmvw expenses for my prescription medication:: 0 - Disagree Mostly Risk Score: 0 Patient is categorized as: Low risk < 2 Are you interested in bedside delivery of your medications? Yes Is Patient Psychosocially Complex?: No ASSESSMENT AND PLAN: Medical Needs: Medical Needs: Two or more chronic diseases Psychosocial Needs: Psychosocial Needs: None FREEDOM OF CHOICE EXPLAINED: Jackson of Choice Given: No Reason Not Given: No placements necessary POTENTIAL TRANSITION PLANS Home From home. Her son lives with her. Indep with ADL's. No DME's. (+) PCP. Fills scripts at [facility]. Requesting that PT/OT see her as she has difficulty standing due to leg pain. Asking about BSC. Educated her that it is not covered by insurance. Anticipate home at discharge. Son to transport. SIGNATURE: Elba Miller RN PATIENT NAME: Nadira Benítez DATE: January 09, 2020 TIME: 3:07 PM PAGER/CONTACT #: [phone] [facility] CONSULTon 01-09-2020 CONSULT HNO ID: [id number] Author: Ivan Andrade MD Service: Orthopaedic Surgery Author Type: Resident Type: Consults Filed: 01/09/2020 12:21 PM Note Text: -------- Attestation signed by Man Diez at 01/10/2020 3:47 PM ATTENDING STAFF REVIEW I personally saw and examined the patient. I agree with the resident's assessment and plan. I communicated with the resident staff as needed if, in my opinion, additional clarification, evaluation, and/or treatment was necessary. Delayed Entry - I saw/examined the patient on 01/10/2020 Man Diez M.D. Attending Staff, Department of Orthopedic Surgery [facility] -------- ORTHOPAEDIC SURGERY CONSULT Pt: NADIRA BENÍTEZ Date of Consultation: 01/09/2020 Physician Consulted: Dr Diez Reason for Consultation: R knee pain HPI: 64 year old female presented to [facility] approximately 2 weeks after CABG by Dr Chavez. Patient with known history of arthritis in bilateral knees. Currently having some R knee pain, worse with attempted ambulation. Was found to have temperature of 38.5 earlier this AM, however denies fevers or chills. No traumatic injury to R leg or R knee. RLE was used for vein graft harvest. Denies any issues with the operative sites. No parathesias RLE, no other orthopaedic complaints. Follows with a fisher eel spear for rheumatoid and osteoarthritis, usually L knee is worse than right. PAST MEDICAL HISTORY Diagnosis Date - Anemia, unspecified - Cardiac dysrhythmia, unspecified - Cervical vertebral fusion 2014 - Dysthymic disorder - Esophageal reflux - Generalized osteoarthrosis, unspecified site knees - Lumbago PAST SURGICAL HISTORY Procedure Laterality Date - ANTERIOR INTERBODY FUSION, CERVICAL 2014 - CABG (3) VEIN GRAFTS AND ARTERIAL GRAFT(S) 12/27/2019 - PAST SURGICAL HISTORY OF colon resected - PAST SURGICAL HISTORY OF cyst knee - ROTATOR CUFF REPAIR Right 2015 Allergies: Bactrim [Sulfamethoxazole-Trimet hoprim] Current Facility-Administered Medications Medication Dose Route Frequency - morphine 2-4 mg injection 2-4 mg INTRAVENOUS q 4 H PRN - oxyCODONE-acetaminophen 5-325 mg 1-2 tablet (PERCOCET) 1-2 tablet ORAL q 4 H PRN - vancomycin dosing and monitoring per pharmacy OTHER As Directed - vancomycin iv piggyback 1.25 g in D5W 250 mL (VANCOCIN) 1.25 g INTRAVENOUS q 12 HR - polyethylene glycol 3350 17 g packet (MIRALAX, GLYCOLAX) 17 g ORAL DAILY - senna-docusate 8.6-50 mg 1 tablet (SENNA-S) 1 tablet ORAL BID - aspirin 81 mg chewable tab(s) 81 mg ORAL DAILY - pantoprazole DR 40 mg tab(s) (PROTONIX) 40 mg ORAL DAILY (6 AM) - metoprolol tartrate (short acting) 50 mg tab(s) (LOPRESSOR) 50 mg ORAL q 8 H - gabapentin 1,200 mg cap(s) (NEURONTIN) 1,200 mg ORAL TID - piperacillin-tazobactam iv piggyback 3.375 g in dextrose (iso-osmotic) 50 mL (ZOSYN) 3.375 g INTRAVENOUS q 6 H - acetaminophen 650 mg tab(s) (TYLENOL) 650 mg ORAL q 6 H PRN FAMILY HISTORY Problem Relation Age of Onset - Cancer Father LEUKEMIA AGE 56 - Osteoporosis Mother - Heart Mother CAD,CHF, renal failure - Breast Cancer Sister AGE 46 CA OF BONE - Breast Cancer Maternal Aunt - Breast Cancer Other MATERNAL COUSIN - Diabetes Brother - other (RENAL DIS) Sister DIALYSIS FOR 23 YRS, Negative for family history of bleeding and clotting disorders. Social History Tobacco Use - Smoking status: Former Smoker - Smokeless tobacco: Never Used - Tobacco comment: quit at least 10 years ago Substance Use Topics - Alcohol use: Yes Comment: 2 times a year - Drug use: No ROS: 10 pt ROS neg except in HPI O: Vitals: BP 122/73 Pulse 104 Temp 37.5 ?C (99.5 ?F) (Oral) Resp 16 Ht 162.6 cm (5' 4") Wt 85.2 kg (187 lb 13.3 oz) LMP 12/16/2004 SpO2 97% BMI 32.24 kg/m? Physical exam: General: AANDO x 3; NAD. Cooperative throughout entire interview Right Lower Extremity: Surgical sites appear well healing without drainage or erythema. There is moderate effusion noted in R knee. Minimal pain with active or passive range of motion. No short arc ROM pain. Dressing dry, clean and intact. Compartments of the thigh and leg are soft and compressible. No TTP in calf. The patient tolerates passive stretch of the digits. +DF/PF/EHL. SILT benson/sa/sp/dp/t. BCR of the digits of the foot. Labs: BMP: Sodium 131 01/09/2020 Potassium 3.5 01/09/2020 Chloride 99 01/09/2020 CO2 22 01/09/2020 BUN 5 01/09/2020 Creatinine 0.49 01/09/2020 Glucose 119 01/09/2020 CBC: WBC 12.54 01/09/2020 Hemoglobin 7.4 01/09/2020 Hematocrit 22.0 01/09/2020 Platelet Count 400 01/09/2020 COAGS: APTT 30.2 12/27/2019 INR 1.05 12/28/2019 SED RATE/CRP: WSR 2 08/17/2016 WSR 5 07/24/2015 WSR 6 02/24/2015 CRP <0.1 08/17/2016 CRP 0.1 07/24/2015 CRP 0.1 02/24/2015 CRP 0.5 12/16/2004 Imaging: -XR of the R knee: There are degenerative changes of the R knee in medial, lateral, and patellofemoral compartments. Chondrocalcinosis noted in both medial and lateral menisci. A/P: 64 year old female with arthritic flare in R knee. Clinical history and exam not consistent with septic knee. -medical management per primary -evaluate for other sources of fever, unlikely to be related to R knee pain -DVT ppx per primary, ok for chemo ppx by ortho -pain control: recommend ice, elevation, and NSAIDs as deemed appropriate by primary team -PT/OT: WBAT RLE -ice and elevate R knee -can f/u outpatient with her fisher eel spear or with Dr Diez as needed -will monitor for improvement with conservative treatment -discussed with Dr Diez who is in agreement Ivan Andrade MD Orthopaedic Surgery 01/09/2020 11:34 AM Normal [facility] CONSULT HNO ID: [id number] Author: Yulissa (Director Of Women'S Services [place]) SALOMÓN Enriquez Service: Cardiovascular Surgery Author Type: Nurse Practitioner Type: Consults Filed: 01/09/2020 4:35 PM Note Text: CARDIOTHORACIC SURGERY CONSULT / HANDP SERVICE DATE: 01/09/2020 SERVICE TIME: 9:19 AM Subjective PRIMARY SERVICE: Cardiothoracic Surgery CHIEF COMPLAINT: Readmission for left knee/leg pain in setting recent CABG x3 HPI: This is a 64 year old woman s/p recent CABG on 12/27/[address] Chavez, who presented to [facility] with fever, worsening Leg pain. Patient was dc home on POD#4 after a general uncomplicated post-op recovery s/p CABG on 12/30. She has had her 1 week post discharge virtual follow up with unremarkable recovery and has been walking as instructed until Tuesday due to severe right lower leg pain. 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 In [facility], she was found febrile and tachycardiac. A set of blood culture was drawn to r/u for potential infection in the leg along with right leg ultrasound to rule out DVT. US right leg r/o DVT; CT R thigh showed: Soft tissue density in the right medial thigh of intermediate etiology probably representing thrombosed greater saphenous vein no evidence of abscess. Given recent CABG in [facility], she was later transferred to [facility] for further eval and management. Patient was seen and examed this AM, who c/o sharp pain in her right leg, more localized in her right knee and her right foot. Pain has significantly limited her ROM AND mobility. Pain regimens has help some but she still still not able to move her right leg without causing severe pain. She denies fever. From CABG recovery standpoint, she appears well. No LH/DZ, no chest palpitation, no significant leg edema noted. And sternal wound is well approximated. Her EVH sites are well healed without signs of infection. Large ancipitate ecchymosis noted on the upper right thigh, mild to moderate tenderness. Soft palpable EVH site without significant seroma presentation. Patient has been treated with IV antibiotics. PAST MEDICAL HISTORY Diagnosis Date - Anemia, unspecified - Cardiac dysrhythmia, unspecified - Cervical vertebral fusion 2014 - Dysthymic disorder - Esophageal reflux - Generalized osteoarthrosis, unspecified site knees - Lumbago PAST SURGICAL HISTORY Procedure Laterality Date - ANTERIOR INTERBODY FUSION, CERVICAL 2014 - CABG (3) VEIN GRAFTS AND ARTERIAL GRAFT(S) 12/27/2019 - PAST SURGICAL HISTORY OF colon resected - PAST SURGICAL HISTORY OF cyst knee - ROTATOR CUFF REPAIR Right 2014 FAMILY HISTORY Problem Relation Age of Onset - Cancer Father LEUKEMIA AGE 56 - Osteoporosis Mother - Heart Mother CAD,CHF, renal failure - Breast Cancer Sister AGE 46 CA OF BONE - Breast Cancer Maternal Aunt - Breast Cancer Other MATERNAL COUSIN - Diabetes Brother - other (RENAL DIS) Sister DIALYSIS FOR 23 YRS, Social History Tobacco Use - Smoking status: Former Smoker - Smokeless tobacco: Never Used - Tobacco comment: quit at least 10 years ago Substance Use Topics - Alcohol use: Yes Comment: 2 times a year - Drug use: No - cephALEXin (KEFLEX) 500 mg capsule, Take 1 capsule by mouth four times daily for 7 days., Disp: 28 capsule, Rfl: 0, 01/08/2020 at 1500 - oxyCODONE IR (ROXICODONE) 5 mg immediate release tablet, Take 1 tablet by mouth every 6 hours as needed for Pain for up to 7 days., Disp: 28 tablet, Rfl: 0, 01/08/2020 at Unknown time - metoprolol tartrate, short acting, (LOPRESSOR) 50 mg tablet, Take 1 tablet by mouth three times daily., Disp: 90 tablet, Rfl: 2, 01/08/2020 at Unknown time - acetaminophen (TYLENOL) 500 mg tablet, Take 2 tablets by mouth every 6 hours as needed for Pain., Disp: , Rfl: , 01/08/2020 at Unknown time - benzocaine-menthol (CEPACOL) 15-3.6 mg lozg, Use 1 Lozenge as instructed every 2 hours as needed., Disp: , Rfl: , Past Week at Unknown time - furosemide (LASIX) 40 mg tablet, Take 1 tablet by mouth once daily for 6 doses., Disp: 6 tablet, Rfl: 0, Past Week at Unknown time - lidocaine (SALONPAS) 4 % patch, Apply 1 Patch as directed once daily., Disp: , Rfl: , Past Week at Unknown time - polyethylene glycol 3350 (MIRALAX, GLYCOLAX) 17 gram packet, Take 1 Packet by mouth once daily as needed (fro constipation)., Disp: , Rfl: , Past Week at Unknown time - senna-docusate (SENNA-S) 8.6-50 mg per tablet, Take 1 tablet by mouth twice daily., Disp: 60 tablet, Rfl: 0, Past Week at Unknown time - clopidogrel (PLAVIX) 75 mg tablet, Take 1 tablet by mouth once daily., Disp: 30 tablet, Rfl: 5, 01/08/2020 at Unknown time - hydrOXYchloroQUINE (PLAQUENIL) 200 mg tablet, Take 200 mg by mouth twice daily., Disp: , Rfl: , 01/08/2020 at Unknown time - methotrexate 2.5 mg tablet, Take 8 tablets by mouth once each week., Disp: 96 tablet, Rfl: 1, Past Week at Unknown time - pyridoxine, vitamin B6, (VITAMIN B-6) 100 mg tablet, Take 25 mg by mouth once daily. , Disp: , Rfl: , Past Week at Unknown time - gabapentin (NEURONTIN) 600 mg tablet, Take 1,200 mg by mouth three times daily., Disp: , Rfl: , 01/08/2020 at Unknown time - atorvastatin (LIPITOR) 80 mg tablet, Take 80 mg by mouth once daily., Disp: , Rfl: , 01/08/2020 at Unknown time - pantoprazole DR (PROTONIX) 20 mg tablet, Take 20 mg by mouth once daily., Disp: , Rfl: , 01/08/2020 at Unknown time - zolpidem (AMBIEN) 10 mg tab, Take by mouth at bedtime as needed., Disp: , Rfl: , 01/08/2020 at Unknown time - ALPRAZolam (XANAX) 0.5 mg tablet, Take 0.5 mg by mouth three times daily as needed for Anxiety. , Disp: , Rfl: , 01/08/2020 at 1500 - Cholecalciferol, Vitamin D3, (VITAMIN D) 1,000 unit cap, Take 2,000 Units by mouth once daily. , Disp: , Rfl: , Past Week at Unknown time - cyanocobalamin (B-12 DOTS) 500 mcg tab, Take by mouth once daily., Disp: , Rfl: , Past Week at Unknown time - magnesium oxide 400 mg cap, Take by mouth once daily., Disp: , Rfl: , 01/08/2020 at Unknown time - aspirin(ECOTRIN LOW STRENGTH 81 MG TAB), Take one(1) tablet daily., Disp: , Rfl: 0, 01/08/2020 at Unknown time - calcium carbonate/vitamin d3(CALCIUM 500 WITH VITAMIN D 500 MG (1,250 MG)-200 UNIT TAB), Take one(1) tablet two(2) times daily., Disp: , Rfl: 0, Past Week at Unknown time - folic acid 1 mg tablet, Take 1 tablet by mouth once daily., Disp: 90 tablet, Rfl: 1, Unknown at Unknown time - DULoxetine (CYMBALTA) 30 mg capsule, Take 30 mg by mouth once daily., Disp: , Rfl: , Unknown at Unknown time - ALENDRONATE SODIUM (FOSAMAX ORAL), Take 70 mg by mouth once each week., Disp: , Rfl: - ALL PURPOSE MULTIVITAMIN-MIN ORAL TAB, Take one(1) tablet daily., Disp: , Rfl: 0 cephALEXin (KEFLEX) 500 mg capsule, Take 1 capsule by mouth four times daily for 7 days. oxyCODONE IR (ROXICODONE) 5 mg immediate release tablet, Take 1 tablet by mouth every 6 hours as needed for Pain for up to 7 days. metoprolol tartrate, short acting, (LOPRESSOR) 50 mg tablet, Take 1 tablet by mouth three times daily. acetaminophen (TYLENOL) 500 mg tablet, Take 2 tablets by mouth every 6 hours as needed for Pain. benzocaine-menthol (CEPACOL) 15-3.6 mg lozg, Use 1 Lozenge as instructed every 2 hours as needed. furosemide (LASIX) 40 mg tablet, Take 1 tablet by mouth once daily for 6 doses. lidocaine (SALONPAS) 4 % patch, Apply 1 Patch as directed once daily. polyethylene glycol 3350 (MIRALAX, GLYCOLAX) 17 gram packet, Take 1 Packet by mouth once daily as needed (fro constipation). senna-docusate (SENNA-S) 8.6-50 mg per tablet, Take 1 tablet by mouth twice daily. clopidogrel (PLAVIX) 75 mg tablet, Take 1 tablet by mouth once daily. hydrOXYchloroQUINE (PLAQUENIL) 200 mg tablet, Take 200 mg by mouth twice daily. methotrexate 2.5 mg tablet, Take 8 tablets by mouth once each week. pyridoxine, vitamin B6, (VITAMIN B-6) 100 mg tablet, Take 25 mg by mouth once daily. gabapentin (NEURONTIN) 600 mg tablet, Take 1,200 mg by mouth three times daily. atorvastatin (LIPITOR) 80 mg tablet, Take 80 mg by mouth once daily. pantoprazole DR (PROTONIX) 20 mg tablet, Take 20 mg by mouth once daily. zolpidem (AMBIEN) 10 mg tab, Take by mouth at bedtime as needed. ALPRAZolam (XANAX) 0.5 mg tablet, Take 0.5 mg by mouth three times daily as needed for Anxiety. Cholecalciferol, Vitamin D3, (VITAMIN D) 1,000 unit cap, Take 2,000 Units by mouth once daily. cyanocobalamin (B-12 DOTS) 500 mcg tab, Take by mouth once daily. magnesium oxide 400 mg cap, Take by mouth once daily. aspirin(ECOTRIN LOW STRENGTH 81 MG TAB), Take one(1) tablet daily. calcium carbonate/vitamin d3(CALCIUM 500 WITH VITAMIN D 500 MG (1,250 MG)-200 UNIT TAB), Take one(1) tablet two(2) times daily. folic acid 1 mg tablet, Take 1 tablet by mouth once daily. DULoxetine (CYMBALTA) 30 mg capsule, Take 30 mg by mouth once daily. ALENDRONATE SODIUM (FOSAMAX ORAL), Take 70 mg by mouth once each week. ALL PURPOSE MULTIVITAMIN-MIN ORAL TAB, Take one(1) tablet daily. ALLERGIES Allergen Reactions - Bactrim [Sulfametho* Rash REVIEW OF SYSTEMS: PAIN ASSESSMENT: CURRENTLY HAVING PAIN; LOCATION/DISTRIBUTION: right leg/knee and foot DURATION: (How long have you had the pain?) 2 days GENERAL: No weight loss, malaise or fevers NECK: Negative for lumps, goiter, pain and significant neck swelling RESPIRATORY: Negative for cough, wheezing or shortness of breath. CARDIOVASCULAR: Negative for chest pain, leg swelling or palpitations. GI: Negative for abdominal discomfort, blood in stools or black stools or change in bowel habits : No history of dysuria, frequency or incontinence MUSCULOSKELETAL: Positive for joint pain: right knee SKIN: Negative for lesions, rash, and itching. PSYCH: Negative for sleep disturbance, mood disorder and recent psychosocial stressors. HEMATOLOGY/LYMPHOLOGY Negative for prolonged bleeding, bruising easily or swollen nodes. ENDOCRINE: Negative for cold or heat intolerance, polyuria, polydipsia and goiter. NEURO: No history of headaches, syncope, paralysis, seizures or tremors Objective PHYSICAL EXAM: BP 111/59 Pulse 101 Temp 37.5 ?C (99.5 ?F) (Oral) Resp 16 Ht 162.6 cm (5' 4") Wt 85.2 kg (187 lb 13.3 oz) LMP 12/16/2004 SpO2 95% BMI 32.24 kg/m? Body surface area is 1.96 meters squared. STS RISK CALCULATOR: NA STS Calculator General Appearance: well developed and no distress Skin: Midsternal incision dry AND intact., SVG incisions dry AND intact., warm and dry Lungs: clear and respiratory effort: normal Heart: regular rhythm, S1, S2 normal and no murmur Peripheral Vascular/Arteries: pulses intact and radial +2 Abdomen: soft, non-tender and bowel sounds present Genitourinary: voiding without difficulty Musculoskeletal: Limited ROM on right leg, palpable large, swollen, fluctuance knee effusion is noted on the right knee Neurologic/Psychiatric: oriented to time, place and person Extremities: normal exam of the extremities Lines, Drains, and Airways Line Peripheral 01/08/20 Admission to Hospital Short Left Antecubital 20 Gauge 1 day @LDAASSESS(2::::8:)@ DATA: Diagnostic tests reviewed for today's visit: Significant Lab Results: reviewed CXR 01/08: IMPRESSION: Stable findings in the chest. The lungs are clear. Knee XR 01/08: There is mild medial compartment narrowing with tricompartmental marginal osteophytes. ?Degree of patellofemoral compartment narrowing is suboptimally evaluated with only a lateral view. ?Suspect a small calcified joint body in the suprapatellar pouch adjacent to the superior pole patella. ?Chondrocalcinosis. ?There is a large joint effusion. ?No acute fracture. ?Surgical clips are in the soft tissue of the knee medially. Recent Labs 01/09/20 0645 RBC 2.44* WBC 12.54* HB 7.4* HCT 22.0* PLT 400* NA 131* K 3.5* CHLOR 99 CO2 22 BUN 5* CREAT 0.49* GLUC 119* CA 8.5 ANION 10 Recent Labs 01/09/20 0306 UPH 5.5 SPGR 1.028 UGLUC NEGATIVE UBILI NEGATIVE UKET NEGATIVE UPROT NEGATIVE Assessment/Plan Active Problems: Right knee pain: -palpable right knee effusion, likely arthritic in nature -Knee XR - uric acid to r/o gout - dc IV antibiotics - continue pain meds: Oxycodone and Tylenol as needed - will consider antiinflammatory agent for acute ortho pain: added ibuprofen 600 mg TID - ICE, ELEVATE and compression - Ortho c/s - will need home PT+OT S/P CABG x 3 POA: Yes - c/w current management: aspirin 81 mg, atorvastatin 80 mg, metoprolol 50 mg 3 times daily - Plavix 75 mg, hold for now given starting NSAIDs to reduced bleeding risk Tests/Labs Ordered: 1. knee xr 2. Uric acid 3. Cbc These findings will be communicated back to the requesting provider electronically. SIGNATURE: Yulissa Enriquez APRN.CNP PATIENT NAME: Nadira Benítez DATE: January 09, 2020 TIME: 9:19 AM PAGER/CONTACT #:[phone] ETX [id number] [facility] CONSULT PROGon 01-09-2020 CONSULT PROG HNO ID: [id number] Author: Harvey Johnson (Pharmacist) Service: Pharmacy Author Type: Pharmacist Type: Consult Progress Note Filed: 01/09/2020 4:25 PM Note Text: PHARMACY VANCOMYCIN DOSING NOTE Patient Name: Nadira Benítez Admission Date: 01/09/2020 Date of Consult: 01/09/2020 Time of Consult: 4:24 PM Indication: Source Unknown; empiric Goal Range: 10-20 mcg/mL RECOMMENDATIONS/PLAN: Pharmacy consulted for vancomycin dosing for Nadira Benítez, a 64 year old, female who is being treated with vancomycin for Unknown source: Empiric 1. The primary service has discontinued vancomycin therapy. Pharmacy vancomycin dosing service will sign off. Thank you for allowing us to participate in this patient's care. Please contact pharmacy if questions. Ext # [phone] or [phone] Elizabeth (pharmacist), [facility] CONSULT PROG HNO ID: [id number] Author: Ida Stevens (Pharmacist) Service: Pharmacy Author Type: Pharmacist Type: Consult Progress Note Filed: 01/09/2020 8:47 AM Note Text: PHARMACY VANCOMYCIN DOSING NOTE Patient Name: Nadira Benítez Admission Date: 01/09/2020 Date of Consult: 01/09/2020 Time of Consult: 3:32 AM Indication: Source Unknown; empiric Goal Range: 10-20 mcg/mL RECOMMENDATIONS/PLAN: Pharmacy consulted for vancomycin dosing for Nadira Benítez, a 64 year old, female who is being treated with vancomycin for Source Unknown; empiric 1. Patient is currently ordered Vancomycin 1.25 g IV q12h. Today is day 1 of therapy. 2. No vancomycin level has been drawn for this dosing regimen. 3. The present dose of vancomycin is the recommended dosage for this patient at this time. Continue therapy as prescribed. 4. The next vancomycin level will be ordered for 01/11/20 at 1330 unless clinically indicated sooner. (Pharmacy will order) We will follow patient renal function, vancomycin levels and doses with you during the course of therapy. Additional recommendations will appear in follow up notes. If you have any questions[place] [phone]. Age: [age] year old Allergies: ALLERGIES Allergen Reactions - Bactrim [Sulfametho* Rash Last 3 Encounter Wt Readings: Date: Wt: 01/08/2020 85.2 kg (187 lb 13.3 oz) 12/03/2019 88.1 kg (194 lb 3.6 oz) 12/03/2019 87.1 kg (192 lb) Last 1 Encounter Ht Readings: Date: Ht: 01/08/2020 162.6 cm (5' 4") CrCl: 117.7 mL/min Temp (24hrs), Av.2 ?C (99 ?F), Min:37.2 ?C (99 ?F), Max:37.2 ?C (99 ?F) - Current Temp: 37.2 ?C (99 ?F) Labs BUN (mg/dL) Date Value 12/31/2019 6 (L) 12/30/2019 6 (L) 12/29/2019 6 (L) Creatinine (mg/dL) Date Value 12/31/2019 0.51 (L) 12/30/2019 0.47 (L) 12/29/2019 0.50 (L) WBC (thou/cmm) Date Value 12/31/2019 8.47 12/30/2019 14.01 (H) 12/29/2019 10.61 (H) Vancomycin Levels: No results found for: RENU KHAN, PHARMACIST Normal [facility] HISTORY PHYSICALon 0 HISTORY PHYSICAL HNO ID: [id number] Author: Eleno Chavez Service: Thoracic Surgery Author Type: Physician Type: HANDP Filed: 01/09/2020 11:13 AM Note Text: See BIOLOGY LABORATORY ASSISTANT H AND P for further details. Patient seen this AM with BIOLOGY LABORATORY ASSISTANT and PA. Patient examined and chest incision looks fine. Right thigh vein harvest site mild/expected eccymoses w/o redness, non-tender, no cellulitis, no fluctuance, and small incion at R knee looks fine also. CT report from [facility] reviewed and shows only expected blood/fluid in saphenous vein harvest tunnel. CXR reviewed this AM and quite clear. Has swollen, tender R knee which she says she cannot stand on. P-consult ortho to eval and Rx R knee(Hx STEPHEN neg RA and osteoarthritis. Normal [facility] Hemogramon 01-09-2020 Erythrocyte distribution width (RBC) [Ratio] 13.7 % Normal 11.7-14.4 [facility] Comment on above: Performed By: #### M AG #### [place] [address] Hematocrit (Bld) [Volume fraction] 22.0 % Low 34.1-44.9 [facility] Comment on above: Performed By: #### M AG #### [place] [address] Hemoglobin (Bld) [Mass/Vol] 7.4 g/dL Low 11.2-15.7 [facility] Comment on above: Performed By: #### M AG #### [place] [address] MCH (RBC) [Entitic mass] 30.3 pg Normal 25.6-32.2 [facility] Comment on above: Performed By: #### M AG #### [place] [address] MCHC (RBC) [Mass/Vol] 33.6 % Normal 31.6-34.8 [facility] Comment on above: Performed By: #### M AG #### [place] [address] MCV (RBC) [Entitic vol] 90.2 fL Normal 79.4-94.8 [facility] Comment on above: Performed By: #### M AG #### [place] [address] Platelet mean volume (Bld) [Entitic vol] 9.2 fL Low 9.4-12.3 [facility] Comment on above: Performed By: #### M AG #### [facility] [address] [place], [place] [address] Platelets (Bld) [#/Vol] 400 thou/cmm High 182-369 [facility] Comment on above: Performed By: #### M AG #### [facility] [address] [place], [place] [address] RBC (Bld) [#/Vol] 2.44 mil/cmm Low 3.93-5.22 [facility] Comment on above: Performed By: #### M AG #### [facility] [address] [place], [place] [address] RDW SD 45.5 fl Normal 36.4-46.3 [facility] Comment on above: Performed By: #### M AG #### [facility] [address] [place], [place] [address] WBC (Bld) [#/Vol] 12.54 thou/cmm High 3.98-10.04 [facility] Comment on above: Performed By: #### M AG #### [facility] [address] [place] [address] MDRD GFRon 01-09-2020 GFR/1.73 sq M predicted among non-blacks MDRD (S/P/Bld) [Vol rate/Area] mL/min/{1.73_m2} Normal >60mL/min/ 1.73m2 [facility] Comment on above: Result Comment: If t he patient is , multiply the result by 1.210. Performed By: #### H A1C #### [facility] [address] [place], [place] [address] Uric Acid Bloodon 01-09-2020 Uric Acid Blood 1.9 mg/dL Low 2.5-6.6 [facility] Comment on above: Performed By: #### C BC1 #### [facility] [address] [place] [id number] Urinalysis, reflexon 020 Reflex Comment see below Normal [facility] Comment on above: Result Comment: Refl ex to culture is not indicated based on established laboratory criteria. Performed By: #### H A1C #### [facility] [address] [place] [address] Bacteria LM.HPF (Urine sed) [#/Area] NONE Normal None [facility] Comment on above: Performed By: #### H A1C #### [facility] [address] [place] [address] Ep Cells Urine 0.7 /hpf Normal 0.0-5.0 [facility] Comment on above: Performed By: #### H A1C #### [facility] [address] [place] [address] Hyaline Cast 0.7 /lpf Normal 0.0-1.0 [facility] Comment on above: Performed By: #### H A1C #### [place] [address] RBC LM.HPF (Urine sed) [#/Area] 1.4 /[HPF] Normal 0.0-5.0 [facility] Comment on above: Performed By: #### H A1C #### [place] [address] WBC, reflex 2.70 /hpf Normal 0.00-5.00 [facility] Comment on above: Performed By: #### H A1C #### [place] [address] Appearance (U) CLEAR Normal [facility] Comment on above: Performed By: #### H A1C #### [place] [address] Bilirubin (U) [Mass/Vol] Negative Normal Negative [facility] Comment on above: Performed By: #### H A1C #### [place] [address] Color (U) YELLOW Normal [facility] Comment on above: Performed By: #### H A1C #### [place] [address] Glucose Ql (U) Negative Normal Negative [facility] Comment on above: Performed By: #### H A1C #### [place] [address] Hemoglobin,Urine Negative Normal Negative [facility] Comment on above: Performed By: #### H A1C #### [facility] [address] [place] [address] Ketone Urine Negative Normal Negative [facility] Comment on above: Performed By: #### H A1C #### [facility] [address] [place] [address] Leukocyte esterase Test strip Ql (U) Negative Normal Negative [facility] Comment on above: Performed By: #### H A1C #### [facility] [address] [place] [address] Nitrite reflex Negative Normal Negative [facility] Comment on above: Performed By: #### H A1C #### [facility] [address] [place] [address] pH (U) 5.5 [pH] Normal 5.0-8.0 [facility] Comment on above: Performed By: #### H A1C #### [place] [address] Protein (U) [Mass/Vol] Negative Normal Negative [facility] Comment on above: Performed By: #### H A1C #### [facility] [address] [place] [address] Specific Berry, Ur 1.028 Normal 1.005-1 .03 0 [facility] Comment on above: Performed By: #### H A1C #### [facility] [address] [place] [address] Urobilinogen,Ur 0.2 EU/dL Normal 0.2-1.0 [facility] Comment on above: Performed By: #### H A1C #### [facility] [address] [place] [address] XR CHEST 1V FRONTALon 2019 XR CHEST 1V FRONTAL Final Report DATE OF EXAM: Jan 09 2020 6:53AM [id number] [id number] - XR CHEST 1V FRONTAL / PROCEDURE REASON: PCI or CABG Physician Interpretation EXAMINATION: CHEST RADIOGRAPH (SINGLE VIEW AP OR PA) CLINICAL HISTORY: PCI or CABG MQ: [id number] Comparison: 12/31/2019 RESULT: Lines, tubes, and devices: practice architect leads. Intact median sternotomy wires. Lungs and pleura: No consolidation. No lung mass. No pleural effusion. Cardiomediastinal silhouette: Normal cardiomediastinal silhouette. Other: The patient has had previous cervical spine fixation and fusion. No significant additional findings. IMPRESSION: Stable findings in the chest. The lungs are clear. Molder Sweep: JAYDEN Transcribe Date/Time: Jan 09 2020 8:04A Dictated by : TANIA BURNS MD This examination was interpreted and the report reviewed and electronically signed by: TANIA BURNS MD on Jan 09 2020 8:05AM EST Normal [facility] XR KNEE 2V AP/LAT RTon 01-08 XR KNEE 2V AP/LAT RT Final Report DATE OF EXAM: Jan 09 2020 10:23AM [id number] [id number] - XR KNEE 2V AP/LAT RT / PROCEDURE REASON: Joint pain, knee Physician Interpretation HISTORY: Joint pain, knee TECHNIQUE: 2 views right knee COMPARISON: None. RESULT: There is mild medial compartment narrowing with tricompartmental marginal osteophytes. Degree of patellofemoral compartment narrowing is suboptimally evaluated with only a lateral view. Suspect a small calcified joint body in the suprapatellar pouch adjacent to the superior pole patella. Chondrocalcinosis. There is a large joint effusion. No acute fracture. Surgical clips are in the soft tissue of the knee medially. IMPRESSION: DEGENERATIVE CHANGE OF THE RIGHT KNEE. 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 Nadira complains of leg pain that limits her ability to walk. She is drowsy and minimally responsive. HR is ranging 92 -115 BPM and seems regular. Tamra is concerned enough that she wants to take Nadira to ER. I agreed. During our virtual visit on Tuesday, Nadira was alert and conversant and participated in the conversation. She noted leg pain and she had been doing RICE to the right thigh. They will go to [facility]. We Will follow. Ac Shetty APRN.CNP Allergies As of Date: 01/08/2020 Noted Allergy Reaction BACTRIM (SULFAMETHOXAZOLE-TRIMET H*12/15/2004 2 - Rash Date Reviewed: 12/31/2019 Reviewed by: Hilda (Salvatore) SALVATORE Love - Fully Assessed 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: Symptoms [3640] Prescriptions as of 01/08/2020 Sig: CEPHALEXIN 500 MG CAPSULE Take 1 capsule by mouth four * OXYCODONE 5 MG TABLET Take 1 tablet by mouth every * METOPROLOL TARTRATE 50 MG TAB* Take 1 tablet by mouth three * ACETAMINOPHEN 500 MG TABLET Take 2 tablets by mouth every* BENZOCAINE 15 MG-MENTHOL 3.6 * Use 1 Lozenge as instructed e* FUROSEMIDE 40 MG TABLET Take 1 tablet by mouth once d* LIDOCAINE 4 % TOPICAL PATCH Apply 1 Patch as directed onc* POLYETHYLENE GLYCOL 3350 17 G* Take 1 Packet by mouth once d* SENNOSIDES 8.6 MG-DOCUSATE SO* Take 1 tablet by mouth twice * CLOPIDOGREL 75 MG TABLET Take 1 tablet by mouth once d* HYDROXYCHLOROQUINE 200 MG TAB* Take 200 mg by mouth twice da* METHOTREXATE SODIUM 2.5 MG TA* Take 8 tablets by mouth once * FOLIC ACID 1 MG TABLET Take 1 tablet by mouth once d* PYRIDOXINE (VITAMIN B6) 100 M* Take 25 mg by mouth once mickey* DULOXETINE 30 MG CAPSULE,FANY* Take 30 mg by mouth once mickey* GABAPENTIN 600 MG TABLET Take 1,200 mg by mouth three * FOSAMAX ORAL Take 70 mg by mouth once each* ATORVASTATIN 80 MG TABLET Take 80 mg by mouth once mickey* PANTOPRAZOLE 20 MG TABLET,DEL* Take 20 mg by mouth once mickey* ZOLPIDEM 10 MG TABLET Take by mouth at bedtime as * ALPRAZOLAM 0.5 MG TABLET Take 0.5 mg by mouth three ti* CHOLECALCIFEROL (VITAMIN D3) * Take 2,000 Units by mouth onc* CYANOCOBALAMIN (VIT B-12) 500* Take by mouth once daily. MAGNESIUM 400 MG ( MAGNESIU* Take by mouth once daily. * ECOTRIN LOW STRENGTH 81 MG TA* Take one(1) tablet daily. * CALCIUM 500 WITH VITAMIN D2 5* Take one(1) tablet two(2) renny* * ALL PURPOSE MULTIVITAMIN-MIN * Take one(1) tablet daily. Problem List As Of Date 01/08/2020 Noted Resolved CARDIAC DYSRHYTHMIA NOS [I49.9] DYSTHYMIC DISORDER [F34.1] ANEMIA NOS [D64.9] GENERAL OSTEOARTHROSIS [M15.9] More... LUMBAGO [M54.5] SPRAIN OF FOOT NOS [S93.609A] 08/26/2008 Seronegative rheumatoid arthritis (HCC) [M06.00]08/17/2016 Angina of effort (HCC) [I20.8] 12/03/2019 CAD (coronary artery disease) [I25.10] 12/25/2019 Obesity, Class I, BMI 30-34.9 [E66.9] 12/27/2019 Stenosis of right carotid artery [I65.21] 12/31/2019 More... S/P CABG x 3 [Z95.1] 12/31/2019 More... Encounter Status:Closed by AC SHETTY CNP on 01/08/20 [facility] Fabienne 01-07-2020 SALOMÓNN Telephone (AGVASACC) -------- NADIRA BENÍTEZ ([id number]) 1955 F Date Time Provider Department 9/28/20 ELENO CHAVEZ During your visit today, we recorded the following information about you: Herrera Warner 01/07/2020 12:47 PM Signed Cardiac rehab orders, operative report, cxr report, AND recent office visit faxed to [facility] fax [phone] ph [phone] Allergies As of Date: 01/07/2020 Noted Allergy Reaction BACTRIM (SULFAMETHOXAZOLE-TRIMET H*12/15/2004 2 - Rash Date Reviewed: 12/31/2019 Reviewed by: Hilda (Rn) SALVATORE Love - Fully Assessed 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: Cardiac Rehab [[id number]] Cmt: referral info Prescriptions as of 01/07/2020 Sig: CEPHALEXIN 500 MG CAPSULE Take 1 capsule by mouth four * OXYCODONE 5 MG TABLET Take 1 tablet by mouth every * METOPROLOL TARTRATE 50 MG TAB* Take 1 tablet by mouth three * ACETAMINOPHEN 500 MG TABLET Take 2 tablets by mouth every* BENZOCAINE 15 MG-MENTHOL 3.6 * Use 1 Lozenge as instructed e* FUROSEMIDE 40 MG TABLET Take 1 tablet by mouth once d* LIDOCAINE 4 % TOPICAL PATCH Apply 1 Patch as directed onc* POLYETHYLENE GLYCOL 3350 17 G* Take 1 Packet by mouth once d* POTASSIUM CHLORIDE ER 20 MEQ * Take 2 tablets by mouth twice* SENNOSIDES 8.6 MG-DOCUSATE SO* Take 1 tablet by mouth twice * CLOPIDOGREL 75 MG TABLET Take 1 tablet by mouth once d* HYDROXYCHLOROQUINE 200 MG TAB* Take 200 mg by mouth twice da* METHOTREXATE SODIUM 2.5 MG TA* Take 8 tablets by mouth once * FOLIC ACID 1 MG TABLET Take 1 tablet by mouth once d* PYRIDOXINE (VITAMIN B6) 100 M* Take 25 mg by mouth once mickey* DULOXETINE 30 MG CAPSULE,FANY* Take 30 mg by mouth once mickey* GABAPENTIN 600 MG TABLET Take 1,200 mg by mouth three * FOSAMAX ORAL Take 70 mg by mouth once each* ATORVASTATIN 80 MG TABLET Take 80 mg by mouth once mickey* PANTOPRAZOLE 20 MG TABLET,DEL* Take 20 mg by mouth once mickey* ZOLPIDEM 10 MG TABLET Take by mouth at bedtime as * ALPRAZOLAM 0.5 MG TABLET Take 0.5 mg by mouth three ti* CHOLECALCIFEROL (VITAMIN D3) * Take 2,000 Units by mouth onc* CYANOCOBALAMIN (VIT B-12) 500* Take by mouth once daily. MAGNESIUM 400 MG ( MAGNESIU* Take by mouth once daily. * ECOTRIN LOW STRENGTH 81 MG TA* Take one(1) tablet daily. * CALCIUM 500 WITH VITAMIN D2 5* Take one(1) tablet two(2) renny* * ALL PURPOSE MULTIVITAMIN-MIN * Take one(1) tablet daily. Problem List As Of Date 01/07/2020 Noted Resolved CARDIAC DYSRHYTHMIA NOS [I49.9] DYSTHYMIC DISORDER [F34.1] ANEMIA NOS [D64.9] GENERAL OSTEOARTHROSIS [M15.9] More... LUMBAGO [M54.5] SPRAIN OF FOOT NOS [S93.609A] 08/26/2008 Seronegative rheumatoid arthritis (HCC) [M06.00]08/17/2016 Angina of effort (HCC) [I20.8] 12/03/2019 CAD (coronary artery disease) [I25.10] 12/25/2019 Obesity, Class I, BMI 30-34.9 [E66.9] 12/27/2019 Stenosis of right carotid artery [I65.21] 12/31/2019 More... S/P CABG x 3 [Z95.1] 12/31/2019 More... Encounter Status:Closed by HERRERA WARNER on 01/07/20 [facility] PROGRESSon 01-07-2020 PROGRESS HNO ID: [id number] Author: Ac Shetty CNP (Aprn Cnp) Service: ? Author Type: Nurse Practitioner Type: Progress Notes Filed: 01/07/2020 9:37 AM Note Text: Heart, Vascular AND Thoracic [place] Department of Cardiac Surgery VIRTUAL VIDEO VISIT ESTABLISHED OUTPATIENT VISIT SERVICE DATE: 01/07/2020 Patient: Nadira Benítez SERVICE TIME: 8:34 AM : 1955 This is a virtual video visit Utilizing face time video and able technology. It required patient-provider interaction for the medical decision making as documented below. Nadira Benítez has consented to this video encounter. Nadira Benítez is a 64 year old female seen for surgical follow-up. CHIEF COMPLAINT: Admitted with [facility] and [facility] HISTORY OF PRESENT ILLNESS Nadira Benítez is a 64 year old female with past medical history significant for ex-smoking, palpitations, rheumatoid arthritis, anterior and posterior cervical fusions, diverticulitis with partial bowel resection, NATHALY. She recently established with cardiology clinic clinic in [place] and complaining of exertional chest pressure and shortness of breath. On 915 she presented for an elective heart cath which demonstrated normal left main, proximal LAD 99% stenosis, left circumflex with 90% stenosis. Echo was done and demonstrated normal LV with no significant valvular abnormalities. An a carotid ultrasound noted 60 to 79% stenosis for which she will need to establish with vascular surgery. she underwent CABG x3 (VERNON to LAD, SVG to diagonal, SVG to circumflex, EVH) performed by Dr. Chavez her postoperative recovery was unremarkable she transferred out of the CVICU on postop day 3 and discharged home in stable condition on 12/31/2019. In the interim, she contacted the office with complaints of palpitations and elevated regular heart rate to 120 and symptoms of palpitations with stable blood pressure. At that time beta-blockade was increased. Today, Nadira Benítez, reports She is she continues to have palpitations with heart rates ranging from 92 119, these are regular both by sensation as well as by report on her blood pressure monitor. She has increased her dose of metoprolol to 50 mg 3 times a day. She further complains of significant bruising, swelling and pain in her right thigh that began yesterday and is inhibiting her ability to get up and walk today. Cardiology F/U: Dr Tate 01/14/2020 Cardiac Rehab: Ordered today. PAST MEDICAL HISTORY Diagnosis Date - Anemia, unspecified - Cardiac dysrhythmia, unspecified - Cervical vertebral fusion 2014 - Dysthymic disorder - Esophageal reflux - Generalized osteoarthrosis, unspecified site knees - Lumbago PAST SURGICAL HISTORY Procedure Laterality Date - ANTERIOR INTERBODY FUSION, CERVICAL 2014 - CABG (3) VEIN GRAFTS AND ARTERIAL GRAFT(S) 12/27/2019 - PAST SURGICAL HISTORY OF colon resected - PAST SURGICAL HISTORY OF cyst knee - ROTATOR CUFF REPAIR Right 2014 FAMILY HISTORY Problem Relation Age of Onset - Cancer Father LEUKEMIA AGE 56 - Osteoporosis Mother - Heart Mother CAD,CHF, renal failure - Breast Cancer Sister AGE 46 CA OF BONE - Breast Cancer Maternal Aunt - Breast Cancer Other MATERNAL COUSIN - Diabetes Brother - other (RENAL DIS) Sister DIALYSIS FOR 23 YRS, Social History Tobacco Use - Smoking status: Former Smoker - Smokeless tobacco: Never Used - Tobacco comment: quit at least 10 years ago Substance Use Topics - Alcohol use: Yes Comment: 2 times a year - Drug use: No ALLERGIES Allergen Reactions - Bactrim [Sulfametho* Rash CURRENT MEDICATIONS metoprolol tartrate, short acting, (LOPRESSOR) 50 mg tablet Take 1 tablet by mouth three times daily. acetaminophen (TYLENOL) 500 mg tablet Take 2 tablets by mouth every 6 hours as needed for Pain. benzocaine-menthol (CEPACOL) 15-3.6 mg lozg Use 1 Lozenge as instructed every 2 hours as needed. furosemide (LASIX) 40 mg tablet Take 1 tablet by mouth once daily for 6 doses. lidocaine (SALONPAS) 4 % patch Apply 1 Patch as directed once daily. polyethylene glycol 3350 (MIRALAX, GLYCOLAX) 17 gram packet Take 1 Packet by mouth once daily as needed (fro constipation). potassium chloride ER (K-DUR, KLOR-CON) 20 mEq tablet Take 2 tablets by mouth twice daily for 13 doses. senna-docusate (SENNA-S) 8.6-50 mg per tablet Take 1 tablet by mouth twice daily. clopidogrel (PLAVIX) 75 mg tablet Take 1 tablet by mouth once daily. hydrOXYchloroQUINE (PLAQUENIL) 200 mg tablet Take 200 mg by mouth twice daily. methotrexate 2.5 mg tablet Take 8 tablets by mouth once each week. folic acid 1 mg tablet Take 1 tablet by mouth once daily. pyridoxine, vitamin B6, (VITAMIN B-6) 100 mg tablet Take 25 mg by mouth once daily. DULoxetine (CYMBALTA) 30 mg capsule Take 30 mg by mouth once daily. gabapentin (NEURONTIN) 600 mg tablet Take 1,200 mg by mouth three times daily. ALENDRONATE SODIUM (FOSAMAX ORAL) Take 70 mg by mouth once each week. atorvastatin (LIPITOR) 80 mg tablet Take 80 mg by mouth once daily. pantoprazole DR (PROTONIX) 20 mg tablet Take 20 mg by mouth once daily. zolpidem (AMBIEN) 10 mg tab Take by mouth at bedtime as needed. ALPRAZolam (XANAX) 0.5 mg tablet Take 0.5 mg by mouth three times daily as needed for Anxiety. Cholecalciferol, Vitamin D3, (VITAMIN D) 1,000 unit cap Take 2,000 Units by mouth once daily. cyanocobalamin (B-12 DOTS) 500 mcg tab Take by mouth once daily. magnesium oxide 400 mg cap Take by mouth once daily. aspirin(ECOTRIN LOW STRENGTH 81 MG TAB) Take one(1) tablet daily. calcium carbonate/vitamin d3(CALCIUM 500 WITH VITAMIN D 500 MG (1,250 MG)-200 UNIT TAB) Take one(1) tablet two(2) times daily. ALL PURPOSE MULTIVITAMIN-MIN ORAL TAB Take one(1) tablet daily. REVIEW OF SYSTEMS: Pain: Significant pain in her right thigh CV: (Dizzy, palpitations, BP, Edema) Reports sensations of palpitations and HR 90-119 BPM, Denies irregular heart rate Incisions: Uppermost portion of her midsternal incision is swollen and tender to palpation, not red, not draining, chest tube sites are closed and healing sutures were removed at home Activity: Was walking until her right thigh became so painful that it made it difficult C/O: Right thigh swelling and pain PHYSICAL EXAMINATION: VIDEO EXAM: (if completed, performed via video enabled technology) SKIN: no rash noted and lesion noted: Localized edema to the top portion of her midsternal incision, no drainage. Significant ecchymosis to the right thigh with edema at the medial knee incision no redness or drainage noted RESPIRATORY: breathing non-labored and no grunting/flaring/retract ions EXTREMITIES: No edema ASSESSMENT: Nadira Benítez is a 64 year old female with past medical history significant for coronary artery disease and now status post coronary artery bypass graft with unremarkable recovery today. PLAN (Active Outpatient Problems): ASSESSMENT/PLAN: 1. S/P CABG x 3 - ICD9: V45.81, ICD10: Z95.1 (primary diagnosis) - Continue medical therapy with aspirin 81 mg, Plavix 75 mg, atorvastatin 80 mg, metoprolol 50 mg 3 times daily - Continue RICE thigh, august ice for portion of midsternal incision - Begin Keflex 500 mg 4 times daily for right thigh edema and pain - Cardiac rehab, stress ECG, and COVID testing ordered may begin in 3 to 4 weeks referral will be sent to [facility] 2. Palpitations - ICD9: 785.1, ICD10: R00.2 - She has a history of palpitations, was well controlled with acebutolol. - Heart rate is regular by report - Continue medical therapy with metoprolol 50 mg 3 times daily, aspirin and Plavix - ECG COMPLETE -To ensure no atrial flutter or fibrillation Ac Shetty APRN.CNP I spent more than 15 minutes in total time involved in the management and care of this patient. Ac Shetty APRN.CNP January 07, 2020 8:34 AM Normal [facility] PROGRESSon 01-05-2020 PROGRESS HNO ID: [id number] Author: Ac (Rosalva Lorenzana) SALOMÓN Shetty Service: ? Author Type: Nurse Practitioner Type: Progress Notes Filed: 01/07/2020 8:47 AM Note Text: I received a message to contact Mrs. Resendez. She reported her heart rate was as high as 120 yesterday and she felt like her heart was pounding. She reports that the heart rate was not your regular just elevated and palpable. Last night she was advised to take 75 mg of metoprolol. This morning she reports improvement in her heart rate and no sensation of palpitations. After discussion, Nadira and I decided to change her metoprolol dosi ng to50 mg three times a day for more sustained heart rate control. New prescription will be sent to her pharmacy with the updated dosing regimen. Ac Shetty APRN.CNP [facility] Basic Metabolic Panelon 12-11 Anion gap [Moles/Vol] 9 mmol/L Normal 9-18 [facility] Comment on above: Performed By: #### H A1C #### [place] [address] Calcium [Mass/Vol] 8.9 mg/dL Normal 8.5-10.2 [facility] Comment on above: Performed By: #### H A1C #### [place] [address] Chloride [Moles/Vol] 104 mmol/L Normal 97-105 [facility] Comment on above: Performed By: #### H A1C #### [place] [address] Performed By: #### B MP #### [facility] [address] [place] [address] CO2 Blood 25 mmol/L Normal 22-30 [facility] Comment on above: Performed By: #### H A1C #### [facility] [address] [place] [address] Creatinine [Mass/Vol] 0.51 mg/dL Low 0.58-0.96 [facility] Comment on above: Performed By: #### H A1C #### [facility] [address] [place] [address] Glucose [Mass/Vol] 93 mg/dL Normal 74-99 [facility] Comment on above: Result Comment: The [place] [employer] (ADA) provides guidance for cutoff values for fasting glucose and random glucose. The ADA defines fasting as no caloric intake for at least 8 hours.Fasting plasma glucose results between 100 to 125 mg/dL indicate increased risk for diabetes (prediabetes). Fasting plasma glucose results greater than or equal to 126 mg/dL meet the criteria for diagnosis of diabetes. In the absence of unequivocal hyperglycemia, results should be confirmed by repeat testing. In a patient with classic symptoms of hyperglycemia or hyperglycemic crisis, random plasma glucose results greater than or equal to 200 mg/dL meet the criteria for diagnosis of diabetes. Reference: Standards of Medical Care in Diabetes 2016; [place] [employer]. Diabetes Care. 2016;39(Suppl 1). Performed By: #### H A1C #### [facility] [address] [place] [address] Potassium [Moles/Vol] 3.9 mmol/L Normal 3.7-5.1 [facility] Comment on above: Performed By: #### H A1C #### [facility] [address] [place] [address] Sodium [Moles/Vol] 138 mmol/L Normal 136-144 [facility] Comment on above: Performed By: #### H A1C #### [facility] [address] [place] [address] Performed By: #### B MP #### [facility] [address] [place] [address] Urea nitrogen [Mass/Vol] 6 mg/dL Low 7-21 [facility] Comment on above: Performed By: #### H A1C #### [place] [address] Performed By: #### B MP #### [place] [address] CASE MANAGEMon 12-31-2019 CASE MANAGEM HNO ID: [id number] Author: Sonia Orr Service: Care Management Author Type: ? Type: Care Mgt Progress Note Filed: 12/31/2019 3:46 PM Note Text: CARE MANAGEMENT PROGRESS NOTE SERVICE DATE: 12/31/2019 SERVICE TIME: 1145 LOS: 6 days IMM Follow Up Copy Given: Yes Copy given to:: Patient Method: In Person SIGNATURE: Sonia Orr PATIENT NAME: Nadira Benítez DATE: December 31, 2019 TIME: 3:46 PM PAGER/CONTACT #: Gita [facility] CASE MANAGEM HNO ID: [id number] Author: Rebecca Rivera RN Service: Care Management Author Type: Registered Nurse Type: Care Mgt Progress Note Filed: 12/31/2019 2:06 PM Note Text: CARE MANAGEMENT DISCHARGE NOTE SERVICE DATE: 12/31/2019 SERVICE TIME: 2:05 PM LOS: 6 days Admission Date: 12/25/2019 DISCHARGE ARRANGEMENT (list agency and phone number) Discharge Arrangement: Home Mcfp Care: Nursing;PT;OT Provider Name: Angélica CAREGIVER ASSESSMENT: Caregiver is ready, willing and able to meet the patient's needs as recommended by the inter-professional team:: Yes Does the patient have an acute stroke diagnosis, or has the patient had a stroke during this admission?: No Patient's transition needs and plan for meeting these needs: Home with [facility]. HANDOFF COMMUNICATION: TRANSPORTATION ARRANGEMENTS: Transportation Arrangements: Car ADDITIONAL CONTACT RESOURCES: SIGNATURE: Rebecca Rivera RN PATIENT NAME: Nadira Cardonastella DATE: December 31, 2019 TIME: 2:05 PM PAGER/CONTACT #: [phone] [facility] CASE MANAGEM HNO ID: [id number] Author: Rebecca Rivera RN Service: Care Management Author Type: Registered Nurse Type: Care Mgt Progress Note Filed: 12/31/2019 9:37 AM Note Text: CARE MANAGEMENT PROGRESS NOTE SERVICE DATE: 12/31/2019 SERVICE TIME: 9:36 AM LOS: 6 days Chart reviewed. Plan for pt to return home with family and Angélica [facility] when medically stable. Will follow. SIGNATURE: Rebecca Rivera RN PATIENT NAME: Nadira Benítez DATE: December 31, 2019 TIME: 9:36 AM PAGER/CONTACT #: [phone] Normal [facility] Hemogramon 12-31-2019 Erythrocyte distribution width (RBC) [Ratio] 14.4 % Normal 11.7-14.4 [facility] Comment on above: Performed By: #### C BC1 #### [facility] [address] [place] [address] Hematocrit (Bld) [Volume fraction] 26.1 % Low 34.1-44.9 [facility] Comment on above: Performed By: #### C BC1 #### [place] [address] Hemoglobin (Bld) [Mass/Vol] 8.6 g/dL Low 11.2-15.7 [facility] Comment on above: Performed By: #### C BC1 #### [place] [address] MCH (RBC) [Entitic mass] 30.1 pg Normal 25.6-32.2 [facility] Comment on above: Performed By: #### C BC1 #### [place] [address] MCHC (RBC) [Mass/Vol] 33.0 % Normal 31.6-34.8 [facility] Comment on above: Performed By: #### C BC1 #### [facility] [address] [place] [address] MCV (RBC) [Entitic vol] 91.3 fL Normal 79.4-94.8 [facility] Comment on above: Performed By: #### C BC1 #### [facility] [address] [place] [address] Platelet mean volume (Bld) [Entitic vol] 9.9 fL Normal 9.4-12.3 [facility] Comment on above: Performed By: #### C BC1 #### [facility] [address] [place], [place] [address] Platelets (Bld) [#/Vol] 183 thou/cmm Normal 182-369 [facility] Comment on above: Performed By: #### C BC1 #### [facility] [address] [place] [address] RBC (Bld) [#/Vol] 2.86 mil/cmm Low 3.93-5.22 [facility] Comment on above: Performed By: #### C BC1 #### [facility] [address] [place] [address] RDW SD 47.0 fl High 36.4-46.3 [facility] Comment on above: Performed By: #### C BC1 #### [facility] [address] [place] [address] WBC (Bld) [#/Vol] 8.47 thou/cmm Normal 3.98-10.04 [facility] Comment on above: Performed By: #### C BC1 #### [place] [address] MDRD GFRon 12-31-2019 GFR/1.73 sq M predicted among non-blacks MDRD (S/P/Bld) [Vol rate/Area] mL/min/{1.73_m2} Normal >60mL/min/ 1.73m2 [facility] Comment on above: Result Comment: If t he patient is , multiply the result by 1.210. Performed By: #### M AG #### [facility] [address] [place] [id number] NURSING PROGon 12-31-2019 NURSING PROG HNO ID: [id number] Author: Hilda (Rn) SALVATORE Love Service: Nursing Author Type: Registered Nurse Type: Nursing Progress Note Filed: 12/31/2019 3:28 PM Note Text: Patient discharged per order. Patient discharged with belongings and discharge forms. Discharge education discussed with patient and patient's daughter. Patient and patient's daughter stated understanding with verbal read back. Normal [facility] NUTRITIONon 12-31-2019 NUTRITION HNO ID: [id number] Author: Nakia Dhillon RD Service: Nutrition Therapy Author Type: Registered Dietitian Type: Nutrition Filed: 12/31/2019 11:17 AM Note Text: NUTRITION THERAPY PROGRESS NOTE SERVICE DATE: 12/31/2019 SERVICE TIME: 10:10 Nutrition Assessment: Recommended Malnutrition Diagnosis: No Malnutrition Identified (12/26/19 0858 : Elia Sauceda) BAYRON Grider) Estimated kilocalorie needs: 6611-1090 Calorie Calculation Method: 15-20 kcals/kg Estimated protein needs (grams): 54-81 Grams protein determined by: 1.0-1.5 g/kg Care Plan: Continue current diet Supplements: Impact AR Monitor and Evaluation: Meet greater than 75% of estimated needs;Monitor bowel function;Monitor fluid/electrolyte balance;Monitor labs, I/Os, vital signs, weight Discharge Recommendations: Diet;Oral Supplements Diet: Heart healthy Oral Supplements: high protein, high calorie supplement of choice until appetite baseline/sternal wound healed Interval History: S/P CABG 12/26. Transferred out of ICU 12/28. Anthropometrics: Height: 162.6 cm (5' 4.02") Weight: 88.1 kg (194 lb 3.6 oz) Dosing Weight: 86 kg (189 lb 9.5 oz) Body mass index is 33.32 kg/m?. Obese Weight change percentage over time: pt endorses no changes in wt, She states she has recently attempted to lose a few pounds once she was informed she "may have heart blockage" at outpatient visit Intake History: Current Intake: Less than 75% estimated energy needs over: 6 days. PO intake starting to improve per patient, she ate 100% of breakfast this morning. Will restart Impact AR. Current Diet: DIET HEART HEALTHY SIGNATURE: Nakia Dhillon RD PATIENT NAME: Nadira Benítez DATE: December 31, 2019 TIME: 10:10 AM PAGER: [phone] [facility] PROGRESSon 12-31-2019 PROGRESS HNO ID: [id number] Author: Eleno Chavez Service: Thoracic Surgery Author Type: Physician Type: Progress Notes Filed: 12/31/2019 9:45 AM Note Text: Patient seen this AM with BIOLOGY LABORATORY ASSISTANT. Looks pretty good and is interested in possibly going home later today. Labs, data, cxr, and careplan reviewed. P-DC pacing wires, diuresis, probable discharge later today. Normal [facility] PROGRESS HNO ID: [id number] Author: Ac (Rosalva Lorenzana) SALOMÓN Shetty Service: Cardiac Surgery Author Type: Nurse Practitioner Type: Progress Notes Filed: 12/31/2019 12:14 PM Note Text: CARDIOTHORACIC SURGERY POSTOP PROGRESS NOTE SERVICE DATE: 12/31/2019 SERVICE TIME: 9:08 AM Subjective S/P SURGERY: Procedure(s) (LRB): CABG X 3 (VERNON-LAD, SVG-Diag, SVG-LCx, EVH) DATE OF SURGERY: 12/27/2019 POSTOP DAY #4 LOS: 6 HPI: Nadira Benítez is a 64 year old woman with PMH significant for HTN, HLD, Ex-smoker of 10+ yr (quit 30 yrs ago), palpitations on BB, RA on Methotrexate, anterior and posterior cervical fusions, diverticulitis and partial bowl resection, general anxiety and depression. She recently established with Dr Tate In cardiology at [facility] and complained of exertional chest pressure and SOB. She presented 12/24 for elective heart cath which demonstrated normal LM, 99% proximal LAD and 90% LCx. Echo showed normal LV and no significant valvular abnormalities. A carotid ultrasound noted CT 60-79% stenosis and she was asked to establish with vascular surgery. INTERVAL EVENTS / PERTINENT ROS: 12/26 she had CABG x [address] Chavez. Post op recovery complicated by acute on chronic pain requiring pain management. She transferred out of CVICU on POD 3 and likely home on POD4. Today, Mrs Benítez reports she is feeling quite well, had a BM. Notes SOB going to bathroom and ambulating. She otherwise wishes to go Home. Objective Admission Weight: 85.5 kg (188 lb 6.4 oz) BP 113/80 Pulse 96 Temp 36.9 ?C (98.4 ?F) (Oral) Resp 18 Ht 162.6 cm (5' 4.02") Wt 88.1 kg (194 lb 3.6 oz) LMP 12/16/2004 SpO2 95% BMI 33.32 kg/m? Body surface area is 1.99 meters squared. Min/Max/Average Temperature AND Blood Pressure: Temp (24hrs), Av ?C (98.6 ?F), Min:36.9 ?C (98.4 ?F), Max:37.2 ?C (99 ?F) Systolic (24hrs), Av , Min:113 , Max:130 Diastolic (24hrs), Av, Min:63, Max:83 Intake/Output Summary (Last 24 hours) at 12/31/2019 0906 Last data filed at 12/31/2019 0508 Gross per 24 hour Intake 1200 ml Output ? Net 1200 ml TELEMETRY: sinus tachycardia PHYSICAL EXAM: General Appearance: well developed and no distress Skin: Midsternal incision dry AND intact., SVG incisions dry AND intact. and R LE With siginificant eccymosis Lungs: clear and respiratory effort: normal Heart: S1, S2 normal, pacing wires present and remooved during AM visit Peripheral Vascular/Arteries: pulses intact Abdomen: soft, round, non-tender and bowel sounds present Neurologic/Psychiatric: oriented to time, place and person Extremities: normal exam of the extremities and edema: non-pitting Lines, Drains, and Airways Line Peripheral 12/25/19 2325 Assessment Left Antecubital 20 Gauge 5 days Peripheral 12/29/19 1105 Short Right Antecubital 20 Gauge 1 day DATA: Diagnostic tests reviewed for today's visit: Significant Lab Results: As Below Chest X-RAY: . Recent Labs 12/31/19 0516 12/30/19 0351 12/29/19 0430 RBC 2.86* 3.05* 2.99* WBC 8.47 14.01* 10.61* HB 8.6* 9.4* 9.4* HCT 26.1* 27.4* 26.9* PLT 183 178* 122* NA 138 138 137 K 3.9 3.7 3.9 CHLOR 104 104 103 CO2 25 24 26 BUN 6* 6* 6* CREAT 0.51* 0.47* 0.50* GLUC 93 107* 125* CA 8.9 8.7 8.6 MG -- -- 2.0 ANION 9 10 8* Assessment/Plan CAD/USA -S/p CABG x?3?(vernon-lad, svg-diag?and circ;evh) -POD #4 -Continue ASA?162, atorvastatin?80,?metopro lol?25 TID -Decrease ASA to 81 and add plavix to start 12/31 -DC Wires today -Add Diet and Nutrition consult -Add Bowel regimen/patient requested suppository -Ambulate as tolerated -Post-thorax vest ? Anticipated Post-Op Respiratory Insufficiency -Currently?96% on?RA; Resolved -Encourage IS, cough, and deep breathing ? Post Op Pain?? -History of chronic pain -Pain management is on consult; appreciate recs ? Leukocytosis -8.47, Resolved -Afebrile -Continue to monitor ? Acute Blood Loss Anemia -HANDH?stable at?9.4/27.4; no transfusion at this time -Continue to monitor ? Thrombocytopenia -Currently?178; Likely reactive -Continue to monitor -Consider modifying lovenox or protonix if no resolution ? Transient Post-Op Hyperglycemia -HA1C was?5.0 -resolved ? DVT ppx -Continue SCDs, Christian Tovare and?add lovenox ? GI ppx -Continue protonix Carotid artery Stenosis -CT 60-79% stenosis -LICA <20% stenosis -Follow-up with Vascular surgery, referral previously placed Cardiac Rehab Educated or reinforced with patient cardiac risk factors, home activity recommendations, BP/pulse monitoring, symptom management, and follow- up appointment scheduling. Patient and/or family verbalizes understanding. ? Dispo: Home with [facility] today Tests/Labs Ordered: 1. None Portions of the documentation were copied and pasted from Maria Ines MCALLISTER progress note dated 12/30/2019. The documentation has been reviewed and edited as necessary to support the clinical decision making for today's visit. SIGNATURE: Ac Shetty APRN.SALOMÓN PATIENT NAME: Nadira Benítez DATE: December 31, 2019 TIME: 9:06 AM PAGER/CONTACT #: [phone] [id number] [id number] Normal [facility] XR CHEST 1V FRONTALon 2019 XR CHEST 1V FRONTAL Final Report DATE OF EXAM: Dec 31 2019 6:31AM [id number] - XR CHEST 1V FRONTAL / PROCEDURE REASON: Post-operative / post-procedure assessment, asymptomatic Physician Interpretation EXAMINATION: CHEST RADIOGRAPH (SINGLE VIEW AP OR PA) CLINICAL HISTORY: Post-operative / post-procedure assessment, asymptomatic MQ: [id number] Comparison: Previous studies with the most recent performed one day ago RESULT: Lines, tubes, and devices: Status post cervical fusion and median sternotomy. Lungs and pleura: Mild atelectasis at the left lung base. Otherwise, the lungs are clear. Cardiomediastinal silhouette: Normal cardiomediastinal silhouette. Other: None IMPRESSION: Mild left basilar atelectasis. Molder Sweep: JAYDEN Transcribe Date/Time: Dec 31 2019 7:13A Dictated by : ABDULLAHI HAGER MD This examination was interpreted and the report reviewed and electronically signed by: ABDULLAHI HAGER MD on Dec 31 2019 7:14AM EST Normal [facility] Basic Metabolic Panelon 12-11 Anion gap [Moles/Vol] 10 mmol/L Normal 9-18 [facility] Comment on above: Performed By: #### B MP #### [facility] [address] [place], [place] [address] Calcium [Mass/Vol] 8.7 mg/dL Normal 8.5-10.2 [facility] Comment on above: Performed By: #### B MP #### [facility] [address] [place], [place] [address] CO2 Blood 24 mmol/L Normal 22-30 [facility] Comment on above: Performed By: #### B MP #### [facility] [address] [place], [place] [address] Creatinine [Mass/Vol] 0.47 mg/dL Low 0.58-0.96 [facility] Comment on above: Performed By: #### B MP #### [facility] [address] [place], [place] [address] Glucose [Mass/Vol] 107 mg/dL High 74-99 [facility] Comment on above: Result Comment: The [place] [employer] (ADA) provides guidance for cutoff values for fasting glucose and random glucose. The ADA defines fasting as no caloric intake for at least 8 hours.Fasting plasma glucose results between 100 to 125 mg/dL indicate increased risk for diabetes (prediabetes). Fasting plasma glucose results greater than or equal to 126 mg/dL meet the criteria for diagnosis of diabetes. In the absence of unequivocal hyperglycemia, results should be confirmed by repeat testing. In a patient with classic symptoms of hyperglycemia or hyperglycemic crisis, random plasma glucose results greater than or equal to 200 mg/dL meet the criteria for diagnosis of diabetes. Reference: Standards of Medical Care in Diabetes 2016; [place] [employer]. Diabetes Care. 2016;39(Suppl 1). Performed By: #### B MP #### [facility] [address] [place] [address] Potassium [Moles/Vol] 3.7 mmol/L Normal 3.7-5.1 [facility] Comment on above: Performed By: #### B MP #### [facility] [address] [place] [address] Hemogramon 12-30-2019 Erythrocyte distribution width (RBC) [Ratio] 14.6 % High 11.7-14.4 [facility] Comment on above: Performed By: #### G LMET #### [facility] [address] [place] [address] Hematocrit (Bld) [Volume fraction] 27.4 % Low 34.1-44.9 [facility] Comment on above: Performed By: #### G LMET #### [facility] [address] [place] [address] Hemoglobin (Bld) [Mass/Vol] 9.4 g/dL Low 11.2-15.7 [facility] Comment on above: Performed By: #### G LMET #### [facility] [address] [place] [address] MCH (RBC) [Entitic mass] 30.8 pg Normal 25.6-32.2 [facility] Comment on above: Performed By: #### G LMET #### [facility] [address] [place] [address] MCHC (RBC) [Mass/Vol] 34.3 % Normal 31.6-34.8 [facility] Comment on above: Performed By: #### G LMET #### [facility] [address] [place] [address] MCV (RBC) [Entitic vol] 89.8 fL Normal 79.4-94.8 [facility] Comment on above: Performed By: #### G LMET #### [address] [place], [place] [address] Platelet mean volume (Bld) [Entitic vol] 10.2 fL Normal 9.4-12.3 [facility] Comment on above: Performed By: #### G LMET #### [facility] [address] [place], [place] [address] Platelets (Bld) [#/Vol] 178 thou/cmm Low 182-369 [facility] Comment on above: Performed By: #### G LMET #### [facility] [address] [place], [place] [address] RBC (Bld) [#/Vol] 3.05 mil/cmm Low 3.93-5.22 [facility] Comment on above: Performed By: #### G LMET #### [facility] [address] [place], [place] [address] RDW SD 46.5 fl High 36.4-46.3 [facility] Comment on above: Performed By: #### G LMET #### [facility] [address] [place], [place] [address] WBC (Bld) [#/Vol] 14.01 thou/cmm High 3.98-10.04 [facility] Comment on above: Performed By: #### G LMET #### [facility] [address] [place] [id number] PROGRESSon 12-30-2019 PROGRESS HNO ID: [id number] Author: Soila Cordova Service: Pain Management Author Type: Physician Type: Progress Notes Filed: 12/30/2019 9:51 AM Note Text: Name: NADIRA BENÍTEZ Age: [age] year old PAIN MANAGEMENT: Seronegative rheumatoid arthritis, chronic neck pain, Neuropathy, multivessel coronary artery disease with plan for CABG Pain Description: Ongoing postop midsternal chest pain. Pain score 6?7. Interval HPI: Stable overnight. Needs bowel movement 12/26 CABG x 3 24H Comfort Meds: Tylenol 1gm x 3 Xanax 0.5 mg X 1 Cymbalta 30 mg x 1 Gabapentin 1200 mg x 2 Morphine 2mg x 1 Oxycodone 5mg q4h prn x 3 Plaquenil 200 mg twice daily Subjective HPI: 64-year-old female with history of hypertension, hyperlipidemia, prior tobacco abuse, strong family history of coronary artery disease, seronegative rheumatoid arthritis, cervical degenerative disc disease, neuropathy, anxiety with insomnia, depression presented 12/24 With exertional angina and dyspnea. Cardiac cath demonstrated multivessel coronary artery disease; she has been referred for consideration for CABG. Patient has chronic multifactorial pain predominantly secondary to seronegative rheumatoid arthritis for the last 10 years. She recently started going to Dr. Hong at [facility] in [place]. Pain regimen includes methotrexate and Plaquenil. She also has chronic pain from cervical degenerative disc disease for which she underwent 2 prior cervical fusions. She has tried medical marijuana but states vaping hurts her chest. Pain regimen includes gabapentin 1200 mg up to 3 times daily for neuropathy bilateral feet of unknown etiology. She previously had been going to Dr. French in [place] for pain management and had been on high-dose opiates including fentanyl patches, Percocet but she has not been to its program for 2 more than 2 years. She had numerous injections which were not effective Patient lives with her son and [id number] and 2 granddaughters. She quit tobacco in her 30s; previous 10-year pack history. She uses alcohol rarely. She denies illicit meds. OARRS Review: 76 prescriptions from 3 prescribers mostly for medical marijuana which she has not used for a month. Most recent prescriptions other than THC: 12/13 Ambien 10 mg #30 12/13 Xanax 0.5 mg #90 10/24 gabapentin 600 mg #540 (90ds) Current Facility-Administered Medications Medication Dose Route Frequency Provider Last Rate Last Dose - metoprolol tartrate (short acting) 25 mg tab(s) (LOPRESSOR) 25 mg ORAL q 8 H Vickie (Pa) Genia 25 mg at 12/30/19 0607 - aspirin 162 mg chewable tab(s) 162 mg ORAL DAILY Vickie (Pa) Genia 162 mg at 12/30/19 0842 - enoxaparin 40 mg injection (LOVENOX) 40 mg SUBCUTANEOUS q 24 HR Vickie (Pa) Genia 40 mg at 12/30/19 0655 - oxyCODONE IR 5 mg tab(s) (ROXICODONE) 5 mg ORAL q 4 H PRN Soila Cordova - bisacodyl 10 mg suppository (DULCOLAX) 10 mg RECTAL DAILY PRN Soila K Scantling - sodium chloride 0.9 % (flush) 2-10 mL (BD POSIFLUSH) 2-10 mL INTRAVENOUS q 12 H Vickie (Pa) Genia 5 mL at 12/30/19 0847 - prochlorperazine 10 mg injection (COMPAZINE) 10 mg INTRAVENOUS q 6 H PRN Vickie (Pa) Genia 10 mg at 12/28/19 0208 - gabapentin 1,200 mg cap(s) (NEURONTIN) 1,200 mg ORAL TID Vickie (Pa) Genia 1,200 mg at 12/30/19 0930 - folic acid 2 mg tab(s) 2 mg ORAL DAILY Vickie (Pa) Genia 2 mg at 12/30/19 0843 - zolpidem 2.5 mg tab(s) (AMBIEN) 2.5 mg ORAL HS PRN Vickie (Pa) Genia 2.5 mg at 12/28/192032 - DULoxetine 30 mg cap(s) (CYMBALTA) 30 mg ORAL DAILY Vickie (Pa) Genia - cholecalciferol 2,000 Units tab(s) (VITAMIN D3) 2,000 Units ORAL DAILY Vickie (Pa) Genia - atorvastatin 80 mg tab(s) (LIPITOR) 80 mg ORAL AT BEDTIME Vickie (Pa) Genia 80 mg at 12/29/19 2119 - pantoprazole DR 40 mg tab(s) (PROTONIX) 40 mg ORAL DAILY (6 AM) Vickie (Pa) Genia 40 mg at 12/30/19 0607 - polyethylene glycol 3350 17 g packet (MIRALAX, GLYCOLAX) 17 g ORAL DAILY Vickie (Pa) Genia 17 g at 12/29/19 0825 - senna-docusate 8.6-50 mg 1 tablet (SENNA-S) 1 tablet ORAL BID Vickie (Pa) Genia 1 tablet at 12/30/19 0843 - ALPRAZolam 0.5 mg tab(s) (XANAX) 0.5 mg ORAL TID PRN Vickie (Pa) Genia 0.5 mg at 12/30/19 0843 - hydrOXYchloroQUINE 200 mg tab(s) (PLAQUENIL) 200 mg ORAL BID Vickie (Pa) Genia 200 mg at 12/30/19 0842 - dextrose 50% in water 25 mL syringe 12.5 g INTRAVENOUS PRN Vickie (Pa) Genia - albuterol 2.5 mg /3 mL (0.083 %) 2.5 mg (PROVENTIL) 2.5 mg INHALATION q 2 H PRN Vickie (Pa) Genia - ondansetron (PF) 4 mg injection (ZOFRAN) 4 mg INTRAVENOUS q 6 H PRN Vickie (Pa) Genia 4 mg at 12/27/19 2225 - acetaminophen 1,000 mg tab(s) (TYLENOL) 1,000 mg ORAL q 6 H Vickie (Pa) Genia 1,000 mg at 12/30/19 0607 - magnesium oxide 400 mg tab(s) (MAG-OX) 400 mg ORAL DAILY Vickie (Pa) Genia 400 mg at 12/30/19 0842 - lidocaine 4 % 1 Patch (SALONPAS) 1 Patch TRANSDERMAL DAILY Vickie (Pa) Genia 1 Patch at 12/30/19 0842 And - lidocaine patch - REMOVE OTHER AT BEDTIME Vickie (Pa) Genia And - lidocaine - VERIFY PATCH OTHER q 8 H Vickie (Pa) Genia - benzocaine-menthol 1 Lozenge (CEPACOL) 1 Lozenge MUCOUS MEMBRANE (TOPICAL MOUTH AND THROAT) q 2 H PRN Vickie (Pa) Genia 1 Lozenge at 12/27/19 1816 - hydrOXYchloroQUINE (PLAQUENIL) 200 mg tablet, Take 200 mg by mouth twice daily., Disp: , Rfl: , 12/24/2019 at 2100 - methotrexate 2.5 mg tablet, Take 8 tablets by mouth once each week., Disp: 96 tablet, Rfl: 1, 12/23/2019 at 0900 - folic acid 1 mg tablet, Take 1 tablet by mouth once daily., Disp: 90 tablet, Rfl: 1, 12/24/2019 at 0800 - folic acid 1 mg tablet, Take 2 tablets by mouth once daily., Disp: 180 tablet, Rfl: 1, 12/24/2019 at 0800 - celecoxib (CELEBREX) 200 mg capsule, Take 200 mg by mouth twice daily., Disp: , Rfl: , 12/24/2019 at 2100 - pyridoxine, vitamin B6, (VITAMIN B-6) 100 mg tablet, Take 25 mg by mouth once daily. , Disp: , Rfl: , 12/24/2019 at 0800 - DULoxetine (CYMBALTA) 30 mg capsule, Take 30 mg by mouth once daily., Disp: , Rfl: , 12/24/2019 at 2100 - gabapentin (NEURONTIN) 600 mg tablet, Take 1,200 mg by mouth three times daily., Disp: , Rfl: , 12/24/2019 at 2100 - lisinopril (ZESTRIL, PRINIVIL) 10 mg tablet, Take 10 mg by mouth twice daily., Disp: , Rfl: , 12/24/2019 at 2100 - atorvastatin (LIPITOR) 80 mg tablet, Take 80 mg by mouth once daily., Disp: , Rfl: , 12/24/2019 at 2100 - pantoprazole DR (PROTONIX) 20 mg tablet, Take 20 mg by mouth once daily., Disp: , Rfl: - zolpidem (AMBIEN) 10 mg tab, Take by mouth at bedtime as needed., Disp: , Rfl: , 12/24/2019 at 2100 - ALPRAZolam (XANAX) 0.5 mg tablet, Take 0.5 mg by mouth three times daily as needed for Anxiety. , Disp: , Rfl: , 12/24/2019 at 2100 - Cholecalciferol, Vitamin D3, (VITAMIN D) 1,000 unit cap, Take 2,000 Units by mouth once daily. , Disp: , Rfl: , 12/24/2019 at 2100 - cyanocobalamin (B-12 DOTS) 500 mcg tab, Take by mouth once daily., Disp: , Rfl: , 12/24/2019 at 0800 - magnesium oxide 400 mg cap, Take by mouth once daily., Disp: , Rfl: , 12/24/2019 at 2100 - oxyCODONE-acetaminophen (PERCOCET) 5-325 mg tablet, Take 1 tablet by mouth every 8 hours as needed for Pain., Disp: , Rfl: 0 - aspirin(ECOTRIN LOW STRENGTH 81 MG TAB), Take one(1) tablet daily., Disp: , Rfl: 0, 12/24/2019 at 0800 - ACEBUTOLOL 400 MG CAP, Take one(1) tablet two(2) times daily., Disp: , Rfl: 0, 12/24/2019 at 2100 - calcium carbonate/vitamin d3(CALCIUM 500 WITH VITAMIN D 500 MG (1,250 MG)-200 UNIT TAB), Take one(1) tablet two(2) times daily., Disp: , Rfl: 0, 12/23/2019 at 2100 - aspirin 325 mg tablet, Take 325 mg by mouth one time only. Pre cath, Disp: , Rfl: - perflutren lipid microspheres (DEFINITY) 1.1 mg/mL injection (to be provided with echo procedure), Inject 1.3 mL intravenously as directed. Administration Instructions: If no IV access, insert saline lock prior to administering contrast. Discontinue saline lock post exam. If patient has central line or IVAD, may access for administration according to line specific nursing protocol. Once exam is complete, flush line and de-access per line specific nursing protocol. Diluted IV Bolus: Dilute 1.3 ml of Definity with 8.7 ml of preservative-free saline, Disp: 1.3 mL, Rfl: 0 - tofacitinib 5 mg tab, Take 1 tablet by mouth twice daily. (Patient not taking: Reported on 12/03/2019), Disp: 60 tablet, Rfl: 0 - ALENDRONATE SODIUM (FOSAMAX ORAL), Take 70 mg by mouth once each week., Disp: , Rfl: - ALL PURPOSE MULTIVITAMIN-MIN ORAL TAB, Take one(1) tablet daily., Disp: , Rfl: 0 Social History Tobacco Use - Smoking status: Former Smoker - Smokeless tobacco: Never Used - Tobacco comment: quit at least 10 years ago Substance Use Topics - Alcohol use: Yes Comment: 2 times a year - Drug use: No FAMILY HISTORY Problem Relation Age of Onset - Cancer Father LEUKEMIA AGE 56 - Osteoporosis Mother - Heart Mother CAD,CHF, renal failure - Breast Cancer Sister AGE 46 CA OF BONE - Breast Cancer Maternal Aunt - Breast Cancer Other MATERNAL COUSIN - Diabetes Brother - other (RENAL DIS) Sister DIALYSIS FOR 23 YRS, PAST SURGICAL HISTORY Procedure Laterality Date - ANTERIOR INTERBODY FUSION, CERVICAL 2015 - PAST SURGICAL HISTORY OF colon resected - PAST SURGICAL HISTORY OF cyst knee - ROTATOR CUFF REPAIR Right 2015 ROS: All of the following reviewed and negative except as noted below: see HPI GENERAL: no fever, chills, sweats, weight loss, fatigue, generalized weakness HEENT: no headache, vision changes, eye discomfort, hearing change, ear discomfort, sinus pain, nasal discharge or congestion, oral lesions, soreness, dental problem NECK: no adenopathy, discomfort, change in ROM CHEST: no shortness of breath, dyspnea on exertion, wheezing, cough, sputum production or chest pain HEART: no chest pain, palpitations, syncope ABDOMEN: no nausea, vomiting, constipation, diarrhea, abdominal pain : no dysuria, urgency, frequency, history of stones, incontinence NEURO: no confusion or alteration in consciousness, slurred speech, seizure, focal weakness EXTREMITIES: no new pain, edema, change in ROM HEME: no new adenopathy, bruises, petechiae PSYCH: no depression, anxiety, agitation PAIN PSYCHIATRIC EXAM: GENERAL: alert, oriented to person, place, time JUDGMENT AND INSIGHT: intact APPEARANCE: neatly groomed DEMEANOR: coooperative, not hostile, mistrustful, preoccupied, or demanding ACTIVITY: normal, not hyperactive or hypoactive, no tremors, tics EYE CONTACT: normal SPEECH: normal, rate, volume, articulation, coherence, spontaneity MOOD: normal, without overt sadness, grief, anxiety, appropriate to situation IDEATION: deferred MEMORY: intact PHYSICAL EXAMINATION: GENERAL: well nourished and developed; mild distress; alert and oriented x 3; intact judgement and insight HEENT: no evidence of trauma; cranial nerves intact; eyes clear EOMI; no hearing deficits apparent; nasal passages unremarkable; throat and mucous membranes clear NECK: supple without lymphadenopathy; no JVD; no thyromegaly CHEST: clear bilaterally to auscultation; normal chest movement; no rales or rhonchi +R chest tube; +midline sternal incision c/d/i HEART: regular rate and rhythm, normal S1 and S2, no murmurs, clicks, rubs, or gallops ABDOMEN: soft; nondistended; bowel sounds present; no hepatomegaly; no splenomegaly; no tenderness EXTREMITIES: no evidence of clubbing; no cyanosis; no joint effusion; no edema +chronic RA changes feet>hands NEURO: cranial nerves intact; no focal deficits; no confusion; no tremor; sensorium normal SKIN: no rash; no skin breakdown; no decubitus lesions HEME: no bruising; no adenopathy PSYCH: no evidence of depression; no anxiety; no agitation; no apparent hallucinations BP 114/67 Pulse 108 Temp 36.6 ?C (97.9 ?F) (Oral) Resp 16 Ht 162.6 cm (5' 4.02") Wt 89.4 kg (197 lb 1.5 oz) LMP 12/16/2004 SpO2 95% BMI 33.81 kg/m? BMI 33.81 kg/(m2) ABNORMAL/NEW FINDINGS: NONE RADIOLOGY/DIAGNOSTICS: LABORATORY: CBC: Recent Labs 12/30/19 0351 WBC 14.01* RBC 3.05* HB 9.4* HCT 27.4* PLT 178* MCV 89.8 MCH 30.8 MPV 10.2 RDW 14.6* CMP: Recent Labs 12/30/19 0351 NA 138 K 3.7 CHLOR 104 CO2 24 BUN 6* CREAT 0.47* GLUC 107* CA 8.7 ANION 10 Heme: No results for input(s): RETICP, ABSRETIC, LD, KELLY, FE, TIBC, TRANSFERSAT in the last 24 hours. ASSESSMENT ACTIVE PROBLEM LIST Cardiac Dysrhythmia, Unspecified Dysthymic Disorder Anemia, Unspecified Generalized Osteoarthrosis, Unspecified Site Lumbago Sprain of Foot, Unspecified Site Seronegative Rheumatoid Arthritis (Hcc) Angina of Effort (Hcc) Cad (Coronary Artery Disease) Obesity, Class I, Bmi 30-34.9 PLAN: S/p CABG x 3V 12/26; doing well postop. Pain reasonably controlled. Activity increased Opiate naive prior to admission. A few years ago had been prescribed daily opiates for chronic multifactorial pain including RA Tylenol 1gm q6h Xanax 0.5mg po tid Gabapentin 1200 mg 3 times daily although patient states she does not always take 3 doses daily Lidoderm patch Discontinue morphine IV Oxycodone 5 mg every 4 hours PRN Plaquenil 200 mg twice daily Senna S twice daily, MiraLAX daily. Dulcolax suppository x1 today per patient request Small quantity oxycodone prescription sent to [facility] pharmacy in [place] Our team will sign off; available as needed Soila Cordova MD [facility] PROGRESS HNO ID: [id number] Author: Vickie Cormier (Pa) Service: Cardiovascular Surgery Author Type: Physician [employer]shore [employer]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 Type: Progress Notes Filed: 12/30/2019 6:37 AM Note Text: CARDIOTHORACIC SURGERY POSTOP PROGRESS NOTE SERVICE DATE: 12/30/2019 SERVICE TIME: 5:48 AM Subjective S/P SURGERY: Procedure(s) (LRB): BYPASS GRAFT ARTERY CORONARY ON-PUMP SINGLE CORONARY ARTERIAL GRAFT (N/A) BYPASS GRAFT ARTERY CORONARY ON-PUMP USING VENOUS GRAFT(S) AND ARTERIAL GRAFT(S); TWO VENOUS GRAFTS (N/A) ENDOSCOPIC HARVEST VEIN FOR CORONARY ARTERY BYPASS PROCEDURE (N/A) DATE OF SURGERY: 12/27/2019 POSTOP DAY #3 LOS: 5 ? HPI: This is a 64 year old female with history of HTN, HLD, RA (treated with plaquenil and methotrexate), osteoarthritis (s/p knee replacement), depression, GERD, chronic cervical spine pain (s/p multiple surgical interventions), and a strong family history (brother and sister underwent CABG) who was being evaluated on outpatient basis for chest discomfort/pressure that radiated to shoulder and arm with associated dyspnea on exertion. She ultimately underwent Left Heart Cath revealing severe multivessel disease and she was admitted for CABG workup. ? INTERVAL EVENTS / PERTINENT ROS:?On 12/26, patient underwent CABG x [address] Chavez. Post-op complicated only by pre-existing pain for which pain management is following. Patient is seen and examined in bed this AM. She states she is having incisional pain. The RN brought medication during my encounter. I advised her to talk to pain management if she needs her current regimen modified. She also requested a suppository. She denies shortness of breath and abdominal pain. No events overnight. Labs and images reviewed. Objective Admission Weight: 85.5 kg (188 lb 6.4 oz) BP 129/83 Pulse 108 Temp 36.7 ?C (98.1 ?F) (Oral) Resp 16 Ht 162.6 cm (5' 4.02") Wt 89.4 kg (197 lb 1.5 oz) LMP 12/16/2004 SpO2 96% BMI 33.81 kg/m? Body surface area is 2.01 meters squared. Min/Max/Average Temperature AND Blood Pressure: Temp (24hrs), Av.1 ?C (98.7 ?F), Min:36.7 ?C (98.1 ?F), Max:37.3 ?C (99.1 ?F) Systolic (24hrs), Av , Min:94 , Max:143 Diastolic (24hrs), Av, Min:54, Max:83 Intake/Output Summary (Last 24 hours) at 12/30/2019 0532 Last data filed at 12/30/2019 0344 Gross per 24 hour Intake 700 ml Output 1198 ml Net -498 ml TELEMETRY: sinus tachycardia PHYSICAL EXAM: General Appearance: Well developed and well nourished appearance. No acute distress. Midsternal AND SVG incision dry AND intact, without redness, drainage or edema. Head/Eyes: EOM's intact Neck: No JVD. Supple. Lungs: clear and respiratory effort: normal Heart: regular rhythm, S1, S2 normal and pacing wires present Peripheral Vascular/Arteries: pulses intact Abdomen: soft, non-tender and bowel sounds present Neurologic/Psychiatric: Oriented to person, place, time. Normal affect. No gross focal neurologic deficits. Extremities: edema: non-pitting Lines, Drains, and Airways Line Peripheral 12/25/19 2325 Assessment Left Antecubital 20 Gauge 4 days Peripheral 12/29/19 1105 Short Right Antecubital 20 Gauge less than 1 day DATA: Diagnostic tests reviewed for today's visit: Chest X-RAY: 2 view ordered for 7am. Recent Labs 12/30/19 0351 12/29/19 0430 12/28/19 0425 12/27/19 1415 RBC 3.05* 2.99* 3.04* 3.42* WBC 14.01* 10.61* 12.74* 19.13* HB 9.4* 9.4* 9.4* 10.5* HCT 27.4* 26.9* 26.9* 30.4* PLT 178* 122* 123* 110* INR -- -- 1.05 1.29 APTT -- -- -- 30.2 NA 138 137 141 142 K 3.7 3.9 3.9 3.8 CHLOR 104 103 108* 112* CO2 24 26 26 24 BUN 6* 6* 8 7 CREAT 0.47* 0.50* 0.51* 0.51* GLUC 107* 125* 107* 120* CA 8.7 8.6 8.0* 7.9* MG -- 2.0 2.1 1.9 ANION 10 8* 7* 6* Recent Labs 12/28/19 0425 12/27/19 1400 12/27/19 1327 12/27/19 1244 12/27/19 1207 PH 7.379 7.358 -- -- -- PCO2 43.2 41.4 43.4 44.1 41.1 PO2 97.3 92.7 349* 231* 264* BE 0.2 -2.1 -1 -1 -4* HCO3 -- -- 24.4 24.2 21.8* Assessment/Plan CAD/UA/NSTEMI/STEMI -S/p CABG x?3?(vernon-lad, svg-diag?and circ;evh) -POD #3 -Continue ASA?162, atorvastatin?80,?metopro lol?25 TID -Periop ABX complete -Maintain Pacing Wires -20 PO lasix with K replace -Add Diet and Nutrition consult -Add Bowel regimen/patient requested suppository -Ambulate as tolerated -Post-thorax vest ? Anticipated Post-Op Respiratory Insufficiency -Currently?96% on?RA; Resolved -Encourage IS, cough, and deep breathing ? Post Op Pain?? -History of chronic pain -Pain management is on consult; appreciate recs ? Leukocytosis -Trending up to 14.01; Likely reactive -Afebrile -Continue to monitor ? Acute Blood Loss Anemia -HANDH stable at?9.4/27.4; no transfusion at this time -Continue to monitor ? Thrombocytopenia -Currently?178; Likely reactive -Continue to monitor -Consider modifying lovenox or protonix if no resolution ? Transient Post-Op Hyperglycemia -Last HA1C was?5.0 -D/c?Insulin gtt -No?sliding scale needed at this time ? DVT ppx -Continue SCDs, Christian Tovare and?add lovenox ? GI ppx -Continue protonix ? Dispo -Home with home care in 24-48 hours ? Plan to be communicated to Dr. Walter ? Tests/Labs Ordered: 1. Chest X-ray 2. BMP 3. CBC SIGNATURE: CATALINO Matos PATIENT NAME: Nadira Benítez DATE: December 30, 2019 TIME: 5:48 AM PAGER/CONTACT #: [phone] [id number] [id number] Normal [facility] XR CHEST 2V FRONTAL/LATon XR CHEST 2V FRONTAL/LAT Final Report DATE OF EXAM: Dec 30 2019 7:46AM [id number] - XR CHEST 2V FRONTAL/LAT / PROCEDURE REASON: Post-operative / post-procedure assessment, asymptomatic Physician Interpretation EXAMINATION: CHEST RADIOGRAPH (2 VIEW FRONTAL & LATERAL) CLINICAL HISTORY: Post-operative / post-procedure assessment, asymptomatic MQ: [id number] EXAM DATE/TIME: 12/30/2019 7:46 AM COMPARISON: 12/29/2019 RESULT: Lines, tubes, and devices: Interval removal of right IJ central venous catheter. Interval removal of mediastinal drain and left chest tube. Partially visualized are pedicle screws and rods, as well as plate and screws in the thoracolumbar spine junction. Lungs and pleura: No large focal consolidation. Small bilateral pleural effusions with adjacent atelectasis/infiltrate. No pneumothorax. Cardiomediastinal silhouette: Prominent heart size. Bones and soft tissues: Multilevel degenerative changes of the spine. IMPRESSION: Small bilateral pleural effusions with adjacent atelectasis/infiltrates. Interval removal of support lines and tubes. Molder Sweep: JAYDEN Transcribe Date/Time: Dec 30 2019 8:51A Dictated by : EVELIA HOLLOWAY MD This examination was interpreted and the report reviewed and electronically signed by: EVELIA HOLLOWAY MD on Dec 30 2019 8:53AM EST Normal [facility] Basic Metabolic Panelon 12-10 Anion gap [Moles/Vol] 8 mmol/L Low 9-18 [facility] Comment on above: Performed By: #### B MP #### [place] [address] Calcium [Mass/Vol] 8.6 mg/dL Normal 8.5-10.2 [facility] Comment on above: Performed By: #### B MP #### [facility] [address] [place] [address] Chloride [Moles/Vol] 103 mmol/L Normal 97-105 [facility] Comment on above: Performed By: #### B MP #### [facility] [address] [place], [place] [address] CO2 Blood 26 mmol/L Normal 22-30 [facility] Comment on above: Performed By: #### B MP #### [facility] [address] [place], [place] [address] Creatinine [Mass/Vol] 0.50 mg/dL Low 0.58-0.96 [facility] Comment on above: Performed By: #### B MP #### [facility] [address] [place], [place] [address] Glucose [Mass/Vol] 125 mg/dL High 74-99 [facility] Comment on above: Result Comment: The [place] [employer] (ADA) provides guidance for cutoff values for fasting glucose and random glucose. The ADA defines fasting as no caloric intake for at least 8 hours.Fasting plasma glucose results between 100 to 125 mg/dL indicate increased risk for diabetes (prediabetes). Fasting plasma glucose results greater than or equal to 126 mg/dL meet the criteria for diagnosis of diabetes. In the absence of unequivocal hyperglycemia, results should be confirmed by repeat testing. In a patient with classic symptoms of hyperglycemia or hyperglycemic crisis, random plasma glucose results greater than or equal to 200 mg/dL meet the criteria for diagnosis of diabetes. Reference: Standards of Medical Care in Diabetes 2016; [place] [employer]. Diabetes Care. 2016;39(Suppl 1). Performed By: #### B MP #### [address] [address] Potassium [Moles/Vol] 3.9 mmol/L Normal 3.7-5.1 [facility] Comment on above: Performed By: #### B MP #### [facility] [address] [place], [place] [address] Sodium [Moles/Vol] 137 mmol/L Normal 136-144 [facility] Comment on above: Performed By: #### B MP #### [address] [address] Urea nitrogen [Mass/Vol] 6 mg/dL Low 7-21 [facility] Comment on above: Performed By: #### B MP #### [facility] [address] [place], [place] [address] Glucose Meteron 12-29-2019 Glucose [Mass/Vol] 132 mg/dL High 70-99 [facility] Comment on above: Result Comment: SALVATORE ALTIF Performed By: #### G LMET #### [facility] [address] [place], [place] [address] Hemogramon 12-29-2019 Erythrocyte distribution width (RBC) [Ratio] 15.0 % High 11.7-14.4 [facility] Comment on above: Performed By: #### C BC1 #### [facility] [address] [place], [place] [address] Hematocrit (Bld) [Volume fraction] 26.9 % Low 34.1-44.9 [facility] Comment on above: Performed By: #### C BC1 #### [facility] [address] [place], [place] [address] Hemoglobin (Bld) [Mass/Vol] 9.4 g/dL Low 11.2-15.7 [facility] Comment on above: Performed By: #### C BC1 #### [facility] [address] [place], [place] [address] MCH (RBC) [Entitic mass] 31.4 pg Normal 25.6-32.2 [facility] Comment on above: Performed By: #### C BC1 #### [facility] [address] [place] [address] MCHC (RBC) [Mass/Vol] 34.9 % High 31.6-34.8 [facility] Comment on above: Performed By: #### C BC1 #### [facility] [address] [place] [address] MCV (RBC) [Entitic vol] 90.0 fL Normal 79.4-94.8 [facility] Comment on above: Performed By: #### C BC1 #### [facility] [address] [place] [address] Platelet mean volume (Bld) [Entitic vol] 9.7 fL Normal 9.4-12.3 [facility] Comment on above: Performed By: #### C BC1 #### [facility] [address] [place], [place] [address] Platelets (Bld) [#/Vol] 122 thou/cmm Low 182-369 [facility] Comment on above: Performed By: #### C BC1 #### [facility] [address] [place], [place] [address] RBC (Bld) [#/Vol] 2.99 mil/cmm Low 3.93-5.22 [facility] Comment on above: Performed By: #### C BC1 #### [facility] [address] [place], [place] [address] RDW SD 48.1 fl High 36.4-46.3 [facility] Comment on above: Performed By: #### C BC1 #### [facility] [address] [place], [place] [address] WBC (Bld) [#/Vol] 10.61 thou/cmm High 3.98-10.04 [facility] Comment on above: Performed By: #### C BC1 #### [facility] [address] [place], [place] [address] Magnesium Bloodon 12-29-2019 Magnesium [Mass/Vol] 2.0 mg/dL Normal 1.7-2.3 [facility] Comment on above: Performed By: #### G LMET #### [facility] [address] [place], [place] [address] PROGRESSon 12-29-2019 PROGRESS HNO ID: [id number] Author: Soila Cordova Service: Pain Management Author Type: Physician Type: Progress Notes Filed: 12/29/2019 12:37 PM Note Text: Name: NADIRA BENÍTEZ Age: [age] year old PAIN MANAGEMENT: Seronegative rheumatoid arthritis, chronic neck pain, Neuropathy, multivessel coronary artery disease with plan for CABG Pain Description: Patient resting comfortably in chair has been able to increase activity. Pain score 6?7; mostly midsternal. Interval HPI: 12/26 CABG x 3 24H Comfort Meds: Tylenol 1gm x 3 Xanax 0.5 mg X 1 Cymbalta 30 mg x 1 Gabapentin 1200 mg x 2 Morphine 4mg x 5 Oxycodone 5mg q4h prn x 1 Plaquenil 200 mg twice daily Subjective HPI: 64-year-old female with history of hypertension, hyperlipidemia, prior tobacco abuse, strong family history of coronary artery disease, seronegative rheumatoid arthritis, cervical degenerative disc disease, neuropathy, anxiety with insomnia, depression presented 12/24 With exertional angina and dyspnea. Cardiac cath demonstrated multivessel coronary artery disease; she has been referred for consideration for CABG. Patient has chronic multifactorial pain predominantly secondary to seronegative rheumatoid arthritis for the last 10 years. She recently started going to Dr. Hong at [facility] in [place]. Pain regimen includes methotrexate and Plaquenil. She also has chronic pain from cervical degenerative disc disease for which she underwent 2 prior cervical fusions. She has tried medical marijuana but states vaping hurts her chest. Pain regimen includes gabapentin 1200 mg up to 3 times daily for neuropathy bilateral feet of unknown etiology. She previously had been going to Dr. French in [place] for pain management and had been on high-dose opiates including fentanyl patches, Percocet but she has not been to its program for 2 more than 2 years. She had numerous injections which were not effective Patient lives with her son and [id number]-ll-ips and 2 granddaughters. She quit tobacco in her 30s; previous 10-year pack history. She uses alcohol rarely. She denies illicit meds. OARRS Review: 76 prescriptions from 3 prescribers mostly for medical marijuana which she has not used for a month. Most recent prescriptions other than THC: 12/13 Ambien 10 mg #30 12/13 Xanax 0.5 mg #90 10/24 gabapentin 600 mg #540 (90ds) Current Facility-Administered Medications Medication Dose Route Frequency Provider Last Rate Last Dose - metoprolol tartrate (short acting) 12.5 mg tab(s) (LOPRESSOR) 12.5 mg ORAL q 8 H Vickie (Pa) Genia - oxyCODONE IR 5-10 mg tab(s) (ROXICODONE) 5-10 mg ORAL q 4 H PRN Soila K Scantling 5 mg at 12/29/19 0826 - morphine 2-4 mg injection 2-4 mg INTRAVENOUS q 3 H PRN Soila K Scantling 2 mg at 12/29/19 1056 - prochlorperazine 10 mg injection (COMPAZINE) 10 mg INTRAVENOUS q 6 H PRN Wenceslao (Pa) Jesus 10 mg at 12/28/19 0208 - gabapentin 1,200 mg cap(s) (NEURONTIN) 1,200 mg ORAL TID Vickie (Pa) Genia 1,200 mg at 12/29/19 0827 - folic acid 2 mg tab(s) 2 mg ORAL DAILY Vickie (Pa) Genia - zolpidem 2.5 mg tab(s) (AMBIEN) 2.5 mg ORAL HS PRN Vickie (Pa) Genia 2.5 mg at 12/28/192032 - DULoxetine 30 mg cap(s) (CYMBALTA) 30 mg ORAL DAILY Vickie (Pa) Genia - cholecalciferol 2,000 Units tab(s) (VITAMIN D3) 2,000 Units ORAL DAILY Vickie (Pa) Genia - atorvastatin 80 mg tab(s) (LIPITOR) 80 mg ORAL AT BEDTIME Vickie (Pa) Genia 80 mg at 12/28/19 2035 - bisacodyl 10 mg suppository (DULCOLAX) 10 mg RECTAL DAILY PRN Vickie (Pa) Genia - pantoprazole DR 40 mg tab(s) (PROTONIX) 40 mg ORAL DAILY (6 AM) Vickie (Pa) Genia 40 mg at 12/29/19 0530 - polyethylene glycol 3350 17 g packet (MIRALAX, GLYCOLAX) 17 g ORAL DAILY Vickie (Pa) Genia 17 g at 12/29/19 0825 - senna-docusate 8.6-50 mg 1 tablet (SENNA-S) 1 tablet ORAL BID Vickie (Pa) Genia 1 tablet at 12/29/19 0826 - ALPRAZolam 0.5 mg tab(s) (XANAX) 0.5 mg ORAL TID PRN Vickie (Pa) Genia 0.5 mg at 12/29/19 1056 - hydrOXYchloroQUINE 200 mg tab(s) (PLAQUENIL) 200 mg ORAL BID Soila K Scantling 200 mg at 12/29/19 0825 - dextrose 50% in water 25 mL syringe 12.5 g INTRAVENOUS PRN Liliana Mello - albuterol 2.5 mg /3 mL (0.083 %) 2.5 mg (PROVENTIL) 2.5 mg INHALATION q 2 H PRN Liliana Mello - PHENYLephrine iv infusion 10 mg in NaCl 0.9% 250 mL (IKER-SYNEPHRINE) 0-100 mcg/min INTRAVENOUS CONTINUOUS Liliana Mello Stopped at 12/28/19 0900 - aspirin 81 mg chewable tab(s) 81 mg ORAL DAILY Liliana Mello 81 mg at 12/29/19 0825 - ondansetron (PF) 4 mg injection (ZOFRAN) 4 mg INTRAVENOUS q 6 H PRN Liliana Mello 4 mg at 12/27/19 2225 - potassium chloride iv piggyback 20 mEq/100 mL 20 mEq INTRAVENOUS PRN Liliana Mello 100 mL/hr at 12/29/19 0539 20 mEq at 12/29/19 0539 - magnesium sulfate in sterile water 2 g in sterile water 50 ml 2 g INTRAVENOUS PRN(NO DISPENSE) Liliana Mello 25 mL/hr at 12/28/19 0606 2 g at 12/28/19 0606 - calcium chloride 1 g in D5W 100 mL 1 g INTRAVENOUS PRN(NO DISPENSE) Liliana Mello - acetaminophen 1,000 mg tab(s) (TYLENOL) 1,000 mg ORAL q 6 H Liliana Mello 1,000 mg at 12/29/19 1210 - magnesium oxide 400 mg tab(s) (MAG-OX) 400 mg ORAL DAILY Liliana Mello 400 mg at 12/29/19 0825 - lidocaine 4 % 1 Patch (SALONPAS) 1 Patch TRANSDERMAL DAILY Liliana Mello 1 Patch at 12/29/19 0825 And - lidocaine patch - REMOVE OTHER AT BEDTIME Liliana Mello And - lidocaine - VERIFY PATCH OTHER q 8 H Liliana Mello - benzocaine-menthol 1 Lozenge (CEPACOL) 1 Lozenge MUCOUS MEMBRANE (TOPICAL MOUTH AND THROAT) q 2 H PRN Jd (Pa) Philipin 1 Lozenge at 12/27/19 1816 - hydrOXYchloroQUINE (PLAQUENIL) 200 mg tablet, Take 200 mg by mouth twice daily., Disp: , Rfl: , 12/24/2019 at 2100 - methotrexate 2.5 mg tablet, Take 8 tablets by mouth once each week., Disp: 96 tablet, Rfl: , 12/23/2019 at 0900 - folic acid 1 mg tablet, Take 1 tablet by mouth once daily., Disp: 90 tablet, Rfl: 1, 12/24/2019 at 0800 - folic acid 1 mg tablet, Take 2 tablets by mouth once daily., Disp: 180 tablet, Rfl: 1, 12/24/2019 at 0800 - celecoxib (CELEBREX) 200 mg capsule, Take 200 mg by mouth twice daily., Disp: , Rfl: , 12/24/2019 at 2100 - pyridoxine, vitamin B6, (VITAMIN B-6) 100 mg tablet, Take 25 mg by mouth once daily. , Disp: , Rfl: , 12/24/2019 at 0800 - DULoxetine (CYMBALTA) 30 mg capsule, Take 30 mg by mouth once daily., Disp: , Rfl: , 12/24/2019 at 2100 - gabapentin (NEURONTIN) 600 mg tablet, Take 1,200 mg by mouth three times daily., Disp: , Rfl: , 12/24/2019 at 2100 - lisinopril (ZESTRIL, PRINIVIL) 10 mg tablet, Take 10 mg by mouth twice daily., Disp: , Rfl: , 12/24/2019 at 2100 - atorvastatin (LIPITOR) 80 mg tablet, Take 80 mg by mouth once daily., Disp: , Rfl: , 12/24/2019 at 2100 - pantoprazole DR (PROTONIX) 20 mg tablet, Take 20 mg by mouth once daily., Disp: , Rfl: - zolpidem (AMBIEN) 10 mg tab, Take by mouth at bedtime as needed., Disp: , Rfl: , 12/24/2019 at 2100 - ALPRAZolam (XANAX) 0.5 mg tablet, Take 0.5 mg by mouth three times daily as needed for Anxiety. , Disp: , Rfl: , 12/24/2019 at 2100 - Cholecalciferol, Vitamin D3, (VITAMIN D) 1,000 unit cap, Take 2,000 Units by mouth once daily. , Disp: , Rfl: , 12/24/2019 at 2100 - cyanocobalamin (B-12 DOTS) 500 mcg tab, Take by mouth once daily., Disp: , Rfl: , 12/24/2019 at 0800 - magnesium oxide 400 mg cap, Take by mouth once daily., Disp: , Rfl: , 12/24/2019 at 2100 - oxyCODONE-acetaminophen (PERCOCET) 5-325 mg tablet, Take 1 tablet by mouth every 8 hours as needed for Pain., Disp: , Rfl: 0 - aspirin(ECOTRIN LOW STRENGTH 81 MG TAB), Take one(1) tablet daily., Disp: , Rfl: 0, 12/24/2019 at 0800 - ACEBUTOLOL 400 MG CAP, Take one(1) tablet two(2) times daily., Disp: , Rfl: 0, 12/24/2019 at 2100 - calcium carbonate/vitamin d3(CALCIUM 500 WITH VITAMIN D 500 MG (1,250 MG)-200 UNIT TAB), Take one(1) tablet two(2) times daily., Disp: , Rfl: 0, 12/23/2019 at 2100 - aspirin 325 mg tablet, Take 325 mg by mouth one time only. Pre cath, Disp: , Rfl: - perflutren lipid microspheres (DEFINITY) 1.1 mg/mL injection (to be provided with echo procedure), Inject 1.3 mL intravenously as directed. Administration Instructions: If no IV access, insert saline lock prior to administering contrast. Discontinue saline lock post exam. If patient has central line or IVAD, may access for administration according to line specific nursing protocol. Once exam is complete, flush line and de-access per line specific nursing protocol. Diluted IV Bolus: Dilute 1.3 ml of Definity with 8.7 ml of preservative-free saline, Disp: 1.3 mL, Rfl: 0 - tofacitinib 5 mg tab, Take 1 tablet by mouth twice daily. (Patient not taking: Reported on 12/03/2019), Disp: 60 tablet, Rfl: 0 - ALENDRONATE SODIUM (FOSAMAX ORAL), Take 70 mg by mouth once each week., Disp: , Rfl: - ALL PURPOSE MULTIVITAMIN-MIN ORAL TAB, Take one(1) tablet daily., Disp: , Rfl: 0 Social History Tobacco Use - Smoking status: Former Smoker - Smokeless tobacco: Never Used - Tobacco comment: quit at least 10 years ago Substance Use Topics - Alcohol use: Yes Comment: 2 times a year - Drug use: No FAMILY HISTORY Problem Relation Age of Onset - Cancer Father LEUKEMIA AGE 56 - Osteoporosis Mother - Heart Mother CAD,CHF, renal failure - Breast Cancer Sister AGE 46 CA OF BONE - Breast Cancer Maternal Aunt - Breast Cancer Other MATERNAL COUSIN - Diabetes Brother - other (RENAL DIS) Sister DIALYSIS FOR 23 YRS, PAST SURGICAL HISTORY Procedure Laterality Date - ANTERIOR INTERBODY FUSION, CERVICAL 2015 - PAST SURGICAL HISTORY OF colon resected - PAST SURGICAL HISTORY OF cyst knee - ROTATOR CUFF REPAIR Right 2015 ROS: All of the following reviewed and negative except as noted below: see HPI GENERAL: no fever, chills, sweats, weight loss, fatigue, generalized weakness HEENT: no headache, vision changes, eye discomfort, hearing change, ear discomfort, sinus pain, nasal discharge or congestion, oral lesions, soreness, dental problem NECK: no adenopathy, discomfort, change in ROM CHEST: no shortness of breath, dyspnea on exertion, wheezing, cough, sputum production or chest pain HEART: no chest pain, palpitations, syncope ABDOMEN: no nausea, vomiting, constipation, diarrhea, abdominal pain : no dysuria, urgency, frequency, history of stones, incontinence NEURO: no confusion or alteration in consciousness, slurred speech, seizure, focal weakness EXTREMITIES: no new pain, edema, change in ROM HEME: no new adenopathy, bruises, petechiae PSYCH: no depression, anxiety, agitation PAIN PSYCHIATRIC EXAM: GENERAL: alert, oriented to person, place, time JUDGMENT AND INSIGHT: intact APPEARANCE: neatly groomed DEMEANOR: coooperative, not hostile, mistrustful, preoccupied, or demanding ACTIVITY: normal, not hyperactive or hypoactive, no tremors, tics EYE CONTACT: normal SPEECH: normal, rate, volume, articulation, coherence, spontaneity MOOD: normal, without overt sadness, grief, anxiety, appropriate to situation IDEATION: deferred MEMORY: intact PHYSICAL EXAMINATION: GENERAL: well nourished and developed; mild distress; alert and oriented x 3; intact judgement and insight HEENT: no evidence of trauma; cranial nerves intact; eyes clear EOMI; no hearing deficits apparent; nasal passages unremarkable; throat and mucous membranes clear NECK: supple without lymphadenopathy; no JVD; no thyromegaly CHEST: clear bilaterally to auscultation; normal chest movement; no rales or rhonchi +R chest tube; +midline sternal incision c/d/i HEART: regular rate and rhythm, normal S1 and S2, no murmurs, clicks, rubs, or gallops ABDOMEN: soft; nondistended; bowel sounds present; no hepatomegaly; no splenomegaly; no tenderness EXTREMITIES: no evidence of clubbing; no cyanosis; no joint effusion; no edema +chronic RA changes feet>hands NEURO: cranial nerves intact; no focal deficits; no confusion; no tremor; sensorium normal SKIN: no rash; no skin breakdown; no decubitus lesions HEME: no bruising; no adenopathy PSYCH: no evidence of depression; no anxiety; no agitation; no apparent hallucinations BP 112/62 Pulse 90 Temp 37 ?C (98.6 ?F) (Temporal) Resp 14 Ht 162.6 cm (5' 4.02") Wt 90.3 kg (199 lb 1.2 oz) LMP 12/16/2004 SpO2 94% BMI 34.15 kg/m? BMI 34.15 kg/(m2) ABNORMAL/NEW FINDINGS: NONE RADIOLOGY/DIAGNOSTICS: LABORATORY: CBC: Recent Labs 12/29/19429 WBC 10.61* RBC 2.99* HB 9.4* HCT 26.9* PLT 122* MCV 90.0 MCH 31.4 MPV 9.7 RDW 15.0* CMP: Recent Labs 12/29/19429 NA 137 K 3.9 CHLOR 103 CO2 26 BUN 6* CREAT 0.50* GLUC 125* CA 8.6 MG 2.0 ANION 8* Heme: No results for input(s): RETICP, ABSRETIC, LD, KELLY, FE, TIBC, TRANSFERSAT in the last 24 hours. ASSESSMENT ACTIVE PROBLEM LIST Cardiac Dysrhythmia, Unspecified Dysthymic Disorder Anemia, Unspecified Generalized Osteoarthrosis, Unspecified Site Lumbago Sprain of Foot, Unspecified Site Seronegative Rheumatoid Arthritis (Hcc) Angina of Effort (Hcc) Cad (Coronary Artery Disease) Obesity, Class I, Bmi 30-34.9 PLAN: S/p CABG x 3V 12/26; doing well postop day #1 Opiate naive prior to admission. A few years ago had been prescribed daily opiates for chronic multifactorial pain including RA Tylenol 1gm q6h Xanax 0.5mg po tid Gabapentin 1200 mg 3 times daily although patient states she does not always take 3 doses daily Lidoderm patch Allow morphine 2-4 mg IV every 2 hours PRN breakthrough pain. Anticipate discontinue chest tube removed Oxycodone 5 mg every 4 hours PRN Plaquenil 200 mg twice daily Senna S twice daily, MiraLAX daily Anticipate short course opiates postop pain Soila Cordova MD [facility] PROGRESS HNO ID: [id number] Author: Vickie Cormier (Pa) Service: Cardiovascular Surgery Author Type: Physician [employer]shore [employer]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 Type: Progress Notes Filed: 12/29/2019 11:06 AM Note Text: CARDIOTHORACIC SURGERY POSTOP PROGRESS NOTE SERVICE DATE: 12/29/2019 SERVICE TIME: 7:34 AM Subjective S/P SURGERY: Procedure(s) (LRB): BYPASS GRAFT ARTERY CORONARY ON-PUMP SINGLE CORONARY ARTERIAL GRAFT (N/A) BYPASS GRAFT ARTERY CORONARY ON-PUMP USING VENOUS GRAFT(S) AND ARTERIAL GRAFT(S); TWO VENOUS GRAFTS (N/A) ENDOSCOPIC HARVEST VEIN FOR CORONARY ARTERY BYPASS PROCEDURE (N/A) DATE OF SURGERY: 12/27/2019 POSTOP DAY #2 LOS: 4 HPI: This is a 64 year old female with history of HTN, HLD, RA (treated with plaquenil and methotrexate), osteoarthritis (s/p knee replacement), depression, GERD, chronic cervical spine pain (s/p multiple surgical interventions), and a strong family history (brother and sister underwent CABG) who was being evaluated on outpatient basis for chest discomfort/pressure that radiated to shoulder and arm with associated dyspnea on exertion. She ultimately underwent Left Heart Cath revealing severe multivessel disease and she was admitted for CABG workup. ? INTERVAL EVENTS / PERTINENT ROS: On 12/26, patient underwent CABG x [address] Chavez. Post-op complicated only by pre-existing pain for which pain management is following. Today patient is seen and evaluated in chair. States she is feeling better. No events over night. Denies chest pain, abdominal pain, and shortness of breath. Objective Admission Weight: 85.5 kg (188 lb 6.4 oz) BP 94/54 Pulse 92 Temp 36.9 ?C (98.4 ?F) (Temporal) Resp 17 Ht 162.6 cm (5' 4.02") Wt 90.3 kg (199 lb 1.2 oz) LMP 12/16/2004 SpO2 92% BMI 34.15 kg/m? Body surface area is 2.02 meters squared. Min/Max/Average Temperature AND Blood Pressure: Temp (24hrs), Av.7 ?C (98.1 ?F), Min:36.5 ?C (97.7 ?F), Max:37 ?C (98.6 ?F) Systolic (24hrs), Av , Min:93 , Max:133 Diastolic (24hrs), Av, Min:54, Max:78 Intake/Output Summary (Last 24 hours) at 12/29/2019 0734 Last data filed at 12/29/2019 0400 Gross per 24 hour Intake 1280 ml Output 3460 ml Net -2180 ml TELEMETRY: normal sinus rhythm PHYSICAL EXAM: General Appearance: Well developed and well nourished appearance. No acute distress. Midsternal dry AND intact, without redness, drainage or edema; SVG incisions dry and intact, thigh stab has minimal drainage Head/Eyes: EOM's intact Lungs: clear and respiratory effort: normal Heart: regular rhythm, S1, S2 normal and pacing wires present Peripheral Vascular/Arteries: pulses intact Neurologic/Psychiatric: Oriented to person, place, time. Normal affect. No gross focal neurologic deficits. Extremities: edema: non-pitting Lines, Drains, and Airways Line Peripheral 12/25/19 2325 Assessment Left Antecubital 20 Gauge 3 days Central Line Quadruple Lumen 12/27/19 Non-tunneled Right Neck 2 days Peripheral 12/27/19 Assessment Short Right Hand 18 Gauge 2 days Drain Chest Tube 12/27/19 Assessment Anterior Mediastinal 32 Fr Tube #1 2 days Chest Tube 12/27/19 Assessment Right Anterior Pleural 32 Fr Tube #2 2 days DATA: Diagnostic tests reviewed for today's visit: Chest X-RAY: Stable post op atelectasis; gastric dilatation slightly improved Recent Labs 12/29/19 0430 12/28/19 0425 12/27/19 1415 RBC 2.99* 3.04* 3.42* WBC 10.61* 12.74* 19.13* HB 9.4* 9.4* 10.5* HCT 26.9* 26.9* 30.4* PLT 122* 123* 110* INR -- 1.05 1.29 APTT -- -- 30.2 NA 137 141 142 K 3.9 3.9 3.8 CHLOR 103 108* 112* CO2 26 26 24 BUN 6* 8 7 CREAT 0.50* 0.51* 0.51* GLUC 125* 107* 120* CA 8.6 8.0* 7.9* MG 2.0 2.1 1.9 ANION 8* 7* 6* Recent Labs 12/28/19 0425 12/27/19 1400 12/27/19 1327 12/27/19 1244 12/27/19 1207 PH 7.379 7.358 -- -- -- PCO2 43.2 41.4 43.4 44.1 41.1 PO2 97.3 92.7 349* 231* 264* BE 0.2 -2.1 -1 -1 -4* HCO3 -- -- 24.4 24.2 21.8* Assessment/Plan CAD/UA/NSTEMI/STEMI -S/p CABG x 3 (vernon-lad, svg-diag and circ;evh) -POD #2 -Continue ASA 81, atorvastatin 80, metoprolol 12.5 TID -Periop ABX complete -Maintain Central line and Pacing Wires -Remove chest tubes -20 PO lasix -Add Diet and Nutrition consult -Add Bowel regimen -Ambulate as tolerated -Post-thorax vest ? Anticipated Post-Op Respiratory Insufficiency -Currently 92% on 2L NC; continue to wean -Encourage IS, cough, and deep breathing ? Post Op Pain -History of chronic pain; Pain management is on consult -Patient seems to have pain well controlled; will switch to modified ERAS -1000mg Tylenol q 6, 50-100 Ultram q 6 PRN, 400mg Magnesium daily, 1200mg Gabapentin q 12 (home dose), and Lidocaine patches ? Leukocytosis -Trending down to 10.61; Likely reactive -Afebrile -Continue to monitor ? Acute Blood Loss Anemia -HANDH stable at 9.4/26.9; no transfusion at this time -Continue to monitor ? Thrombocytopenia -Currently 122; Likely reactive -Continue to monitor -Consider modifying lovenox or protonix if no resolution ? Transient Post-Op Hyperglycemia -Last HA1C was 5.0 -D/c Insulin gtt -No sliding scale needed at this time ? DVT ppx -Continue SCDs, Christian Hose and hold lovenox for elevated bleeding risk ? GI ppx -Continue protonix ? Dispo -Transfer to 4200 ? Planned in collaboration with Dr. Walter and CVICU team ? Tests/Labs Ordered: 1. Chest X-ray 2. BMP 3. CBC SIGNATURE: Vickie Cormier PA-C PATIENT NAME: Nadira Benítez DATE: December 29, 2019 TIME: 7:34 AM PAGER/CONTACT #: [phone] ETX [id number] Normal [facility] XR CHEST 1V FRONTALon 2019 XR CHEST 1V FRONTAL Final Report DATE OF EXAM: Dec 29 2019 5:54AM [id number] [id number] - XR CHEST 1V FRONTAL / PROCEDURE REASON: Post-operative / post-procedure assessment, asymptomatic Physician Interpretation EXAMINATION: CHEST RADIOGRAPH (SINGLE VIEW AP OR PA) CLINICAL HISTORY: Post-operative / post-procedure assessment, asymptomatic MQ: [id number] Comparison: 12/28/2019, 12/27/2019 and 12/25/2019. RESULT: Lines, tubes, and devices: Pre-existing lines and tubes appear in unaltered position. Multiple monitoring wires overlie the chest. Lungs and pleura: Lung volumes are diminished with persistent regions of lower lung atelectasis. Mild biapical pleural thickening. Cardiomediastinal silhouette: Stable cardiomediastinal silhouette. Other: Postoperative changes of median sternotomy with cerclage wires. Incompletely visualized cervical fixation hardware. IMPRESSION: Stable chest. Molder Sweep: JAYDEN Transcribe Date/Time: Dec 29 2019 7:19A Dictated by : JANES CHATTERJEE MD This examination was interpreted and the report reviewed and electronically signed by: JANES CHATTERJEE MD on Dec 29 2019 7:24AM EST Normal [facility] Basic Metabolic Panelon 12-10 Anion gap [Moles/Vol] 7 mmol/L Low 9-18 [facility] Comment on above: Performed By: #### H A1C #### [facility] [address] [place] [address] Calcium [Mass/Vol] 8.0 mg/dL Low 8.5-10.2 [facility] Comment on above: Performed By: #### H A1C #### [facility] [address] [place], [place] [address] Chloride [Moles/Vol] 108 mmol/L High 97-105 [facility] Comment on above: Performed By: #### H A1C #### [facility] [address] [place], [place] [address] CO2 Blood 26 mmol/L Normal 22-30 [facility] Comment on above: Performed By: #### H A1C #### [facility] [address] [place], [place] [address] Creatinine [Mass/Vol] 0.51 mg/dL Low 0.58-0.96 [facility] Comment on above: Performed By: #### H A1C #### [facility] [address] [place], [place] [address] Glucose [Mass/Vol] 107 mg/dL High 74-99 [facility] Comment on above: Result Comment: The [place] [employer] (ADA) provides guidance for cutoff values for fasting glucose and random glucose. The ADA defines fasting as no caloric intake for at least 8 hours.Fasting plasma glucose results between 100 to 125 mg/dL indicate increased risk for diabetes (prediabetes). Fasting plasma glucose results greater than or equal to 126 mg/dL meet the criteria for diagnosis of diabetes. In the absence of unequivocal hyperglycemia, results should be confirmed by repeat testing. In a patient with classic symptoms of hyperglycemia or hyperglycemic crisis, random plasma glucose results greater than or equal to 200 mg/dL meet the criteria for diagnosis of diabetes. Reference: Standards of Medical Care in Diabetes 2016; [place] [employer]. Diabetes Care. 2016;39(Suppl 1). Performed By: #### H A1C #### [facility] [address] [place] [address] Potassium [Moles/Vol] 3.9 mmol/L Normal 3.7-5.1 [facility] Comment on above: Performed By: #### H A1C #### [place] [address] Sodium [Moles/Vol] 141 mmol/L Normal 136-144 [facility] Comment on above: Performed By: #### H A1C #### [facility] [address] [place] [address] Urea nitrogen [Mass/Vol] 8 mg/dL Normal 7-21 [facility] Comment on above: Performed By: #### H A1C #### [facility] [address] [place], [place] [address] Blood Gas Arterialon 0918-2 020 Base Excess 0.2 mmol/L Normal -3.0-3.0 [facility] Comment on above: Performed By: #### H A1C #### [facility] [address] [place], [place] [address] FIO2 28 % Normal [facility] Comment on above: Performed By: #### H A1C #### [facility] [address] [place], [place] [address] HCO3 (Bld) [Moles/Vol] 24.8 mmol/L Normal 21.0-28.0 [facility] Comment on above: Performed By: #### H A1C #### [facility] [address] [place] [address] O2% Sat Arterial 98.2 % Normal 96.0-100.0 [facility] Comment on above: Performed By: #### H A1C #### [facility] [address] [place] [address] PCO2 Arterial 43.2 mm Hg Normal 35.0-45.0 [facility] Comment on above: Performed By: #### H A1C #### [facility] [address] [place] [address] pH Arterial 7.379 Normal 7.350-7.45 0 [facility] Comment on above: Performed By: #### H A1C #### [facility] [address] [place] [address] PO2 Arterial 97.3 mm Hg Normal 83.0-108.0 [facility] Comment on above: Performed By: #### H A1C #### [facility] [address] [place] [address] CASE MANAGEMon 12-28-2019 CASE MANAGEM HNO ID: [id number] Author: Tamra (Rn) SALVATORE Bailey Service: Care Management Author Type: Registered Nurse Type: Care Mgt Progress Note Filed: 12/28/2019 12:47 PM Note Text: CARE MANAGEMENT PROGRESS NOTE SERVICE DATE: 12/28/2019 SERVICE TIME: 12:45 PM LOS: 3 days Needs Prior to Discharge: Home Care Order Chart reviewed. CABG x3 POD #1. Plan when medically ready is home with [facility]. [facility]. will continue to follow. SIGNATURE: Tamra Bailey RN PATIENT NAME: Nadira Benítez DATE: December 28, 2019 TIME: 12:45 PM PAGER/CONTACT #: [phone] Normal [facility] Hemogramon 12-28-2019 Erythrocyte distribution width (RBC) [Ratio] 14.8 % High 11.7-14.4 [facility] Comment on above: Performed By: #### C BC1 #### [facility] [address] [place] [address] Hematocrit (Bld) [Volume fraction] 26.9 % Low 34.1-44.9 [facility] Comment on above: Performed By: #### C BC1 #### [facility] [address] [place] [address] Hemoglobin (Bld) [Mass/Vol] 9.4 g/dL Low 11.2-15.7 [facility] Comment on above: Performed By: #### C BC1 #### [facility] [address] [place] [address] MCH (RBC) [Entitic mass] 30.9 pg Normal 25.6-32.2 [facility] Comment on above: Performed By: #### C BC1 #### [facility] [address] [place] [address] MCHC (RBC) [Mass/Vol] 34.9 % High 31.6-34.8 [facility] Comment on above: Performed By: #### C BC1 #### [facility] [address] [place] [address] MCV (RBC) [Entitic vol] 88.5 fL Normal 79.4-94.8 [facility] Comment on above: Performed By: #### C BC1 #### [facility] [address] [place] [address] Platelet mean volume (Bld) [Entitic vol] 9.9 fL Normal 9.4-12.3 [facility] Comment on above: Performed By: #### C BC1 #### [facility] [address] [place] [address] Platelets (Bld) [#/Vol] 123 thou/cmm Low 182-369 [facility] Comment on above: Performed By: #### C BC1 #### [facility] [address] [place] [address] RBC (Bld) [#/Vol] 3.04 mil/cmm Low 3.93-5.22 [facility] Comment on above: Performed By: #### C BC1 #### [facility] [address] [place] [address] RDW SD 47.4 fl High 36.4-46.3 [facility] Comment on above: Performed By: #### C BC1 #### [facility] [address] [place] [address] WBC (Bld) [#/Vol] 12.74 thou/cmm High 3.98-10.04 [facility] Comment on above: Performed By: #### C BC1 #### [facility] [address] [place], [place] [address] Magnesium Bloodon 12-28-2019 Magnesium [Mass/Vol] 2.1 mg/dL Normal 1.7-2.3 [facility] Comment on above: Performed By: #### M AG #### [facility] [address] [place], [place] [address] PROGRESSon 12-28-2019 PROGRESS HNO ID: [id number] Author: Soila Cordova Service: Pain Management Author Type: Physician Type: Progress Notes Filed: 12/28/2019 1:42 PM Note Text: Name: NADIRA BENÍTEZ Age: [age] year old PAIN MANAGEMENT: Seronegative rheumatoid arthritis, chronic neck pain, Neuropathy, multivessel coronary artery disease with plan for CABG Pain Description: Patient resting comfortably in bed. She ambulated earlier in the hallway.. Daughter in room. Complains of sharp, stabbing pain near incision. Also complains of pain near chest tube site. Satisfied with present pain regimen Interval HPI: 12/26 CABG x 3 24H Comfort Meds: Tylenol 1gm x 3 Xanax 0.5 mg X 1 Cymbalta 30 mg x 1 Gabapentin 1200 mg x 3 Morphine 2-4 mg IV every 1 hour as needed 4mg x 5 Oxycodone 5mg q4h prn x 2 Plaquenil 200 mg twice daily Percocet 5/325 one x 1 Subjective HPI: 64-year-old female with history of hypertension, hyperlipidemia, prior tobacco abuse, strong family history of coronary artery disease, seronegative rheumatoid arthritis, cervical degenerative disc disease, neuropathy, anxiety with insomnia, depression presented 12/24 With exertional angina and dyspnea. Cardiac cath demonstrated multivessel coronary artery disease; she has been referred for consideration for CABG. Patient has chronic multifactorial pain predominantly secondary to seronegative rheumatoid arthritis for the last 10 years. She recently started going to Dr. Hong at [facility] in [place]. Pain regimen includes methotrexate and Plaquenil. She also has chronic pain from cervical degenerative disc disease for which she underwent 2 prior cervical fusions. She has tried medical marijuana but states vaping hurts her chest. Pain regimen includes gabapentin 1200 mg up to 3 times daily for neuropathy bilateral feet of unknown etiology. She previously had been going to Dr. French in [place] for pain management and had been on high-dose opiates including fentanyl patches, Percocet but she has not been to its program for 2 more than 2 years. She had numerous injections which were not effective Patient lives with her son and [id number] and 2 granddaughters. She quit tobacco in her 30s; previous 10-year pack history. She uses alcohol rarely. She denies illicit meds. OARRS Review: 76 prescriptions from 3 prescribers mostly for medical marijuana which she has not used for a month. Most recent prescriptions other than THC: 12/13 Ambien 10 mg #30 12/13 Xanax 0.5 mg #90 10/24 gabapentin 600 mg #540 (90ds) Current Facility-Administered Medications Medication Dose Route Frequency Provider Last Rate Last Dose - prochlorperazine 10 mg injection (COMPAZINE) 10 mg INTRAVENOUS q 6 H PRN Wenceslao (Ary) Jesus 10 mg at 12/28/19 0208 - gabapentin 1,200 mg cap(s) (NEURONTIN) 1,200 mg ORAL TID Vickie (Pa) Genia - folic acid 2 mg tab(s) 2 mg ORAL DAILY Vickie (Ary) Genia - zolpidem 2.5 mg tab(s) (AMBIEN) 2.5 mg ORAL HS PRN Vickie (Pa) Genia - DULoxetine 30 mg cap(s) (CYMBALTA) 30 mg ORAL DAILY Vickie (Ary) Genia - cholecalciferol 2,000 Units tab(s) (VITAMIN D3) 2,000 Units ORAL DAILY Vickie (Pa) Genia - atorvastatin 80 mg tab(s) (LIPITOR) 80 mg ORAL AT BEDTIME Vickie (Pa) Genia - bisacodyl 10 mg suppository (DULCOLAX) 10 mg RECTAL DAILY PRN Vickie (Ary) Genia - [START ON 12/29/2019] pantoprazole DR 40 mg tab(s) (PROTONIX) 40 mg ORAL DAILY (6 AM) Vickie (Ary) Genia - polyethylene glycol 3350 17 g packet (MIRALAX, GLYCOLAX) 17 g ORAL DAILY Vickie (Ary) Genia 17 g at 12/28/19 1013 - senna-docusate 8.6-50 mg 1 tablet (SENNA-S) 1 tablet ORAL BID Vickie (Pa) Genia 1 tablet at 12/28/19 1013 - ALPRAZolam 0.5 mg tab(s) (XANAX) 0.5 mg ORAL TID PRN Vickie (Pa) Genia 0.5 mg at 12/28/19 1039 - insulin regular human iv bolus 10 Units 10 Units INTRAVENOUS PRN Liliana Mello - dextrose 50% in water 25 mL syringe 12.5 g INTRAVENOUS PRN Liliana Mello - albuterol 2.5 mg /3 mL (0.083 %) 2.5 mg (PROVENTIL) 2.5 mg INHALATION q 2 H PRN Liliana Mello - PHENYLephrine iv infusion 10 mg in NaCl 0.9% 250 mL (IKER-SYNEPHRINE) 0-100 mcg/min INTRAVENOUS CONTINUOUS Liliana Mello Stopped at 12/28/19 0900 - aspirin 81 mg chewable tab(s) 81 mg ORAL DAILY Liliana Mello 81 mg at 12/28/19 0816 - ondansetron (PF) 4 mg injection (ZOFRAN) 4 mg INTRAVENOUS q 6 H PRN Liliana Mello 4 mg at 12/27/19 2225 - potassium chloride iv piggyback 20 mEq/100 mL 20 mEq INTRAVENOUS PRN Liliana Mello 100 mL/hr at 12/28/19 0606 20 mEq at 12/28/19 0606 - magnesium sulfate in sterile water 2 g in sterile water 50 ml 2 g INTRAVENOUS PRN(NO DISPENSE) Liliana Mello 25 mL/hr at 12/28/19 0606 2 g at 12/28/19 0606 - calcium chloride 1 g in D5W 100 mL 1 g INTRAVENOUS PRN(NO DISPENSE) Liliana Mello - acetaminophen 1,000 mg tab(s) (TYLENOL) 1,000 mg ORAL q 6 H Liliana Mello 1,000 mg at 12/28/19 0520 - morphine 2-4 mg injection 2-4 mg INTRAVENOUS q 1 H PRN Liliaan Mello 4 mg at 12/28/19 1013 - ceFAZolin iv piggyback 2 g in D5W (iso-osmotic) 100 mL (ANCEF) 2 g INTRAVENOUS q 6 HR Liliana Mello 200 mL/hr at 12/28/19 0816 2 g at 12/28/19 0816 - magnesium oxide 400 mg tab(s) (MAG-OX) 400 mg ORAL DAILY Liliana Mello 400 mg at 12/28/19 0816 - lidocaine 4 % 1 Patch (SALONPAS) 1 Patch TRANSDERMAL DAILY Liliana Mello 1 Patch at 12/28/19 0826 And - lidocaine patch - REMOVE OTHER AT BEDTIME Liliana Mello And - lidocaine - VERIFY PATCH OTHER q 8 H Liliana Mello - benzocaine-menthol 1 Lozenge (CEPACOL) 1 Lozenge MUCOUS MEMBRANE (TOPICAL MOUTH AND THROAT) q 2 H PRN Jd (Ary) Philipin 1 Lozenge at 12/27/19 1816 - oxyCODONE IR 5 mg tab(s) (ROXICODONE) 5 mg ORAL q 4 H PRN Jd Elise) Ruhlin 5 mg at 12/28/19 0735 - hydrOXYchloroQUINE (PLAQUENIL) 200 mg tablet, Take 200 mg by mouth twice daily., Disp: , Rfl: , 12/24/2019 at 2100 - methotrexate 2.5 mg tablet, Take 8 tablets by mouth once each week., Disp: 96 tablet, Rfl: 1, 12/23/2019 at 0900 - folic acid 1 mg tablet, Take 1 tablet by mouth once daily., Disp: 90 tablet, Rfl: 1, 12/24/2019 at 0800 - folic acid 1 mg tablet, Take 2 tablets by mouth once daily., Disp: 180 tablet, Rfl: 1, 12/24/2019 at 0800 - celecoxib (CELEBREX) 200 mg capsule, Take 200 mg by mouth twice daily., Disp: , Rfl: , 12/24/2019 at 2100 - pyridoxine, vitamin B6, (VITAMIN B-6) 100 mg tablet, Take 25 mg by mouth once daily. , Disp: , Rfl: , 12/24/2019 at 0800 - DULoxetine (CYMBALTA) 30 mg capsule, Take 30 mg by mouth once daily., Disp: , Rfl: , 12/24/2019 at 2100 - gabapentin (NEURONTIN) 600 mg tablet, Take 1,200 mg by mouth three times daily., Disp: , Rfl: , 12/24/2019 at 2100 - lisinopril (ZESTRIL, PRINIVIL) 10 mg tablet, Take 10 mg by mouth twice daily., Disp: , Rfl: , 12/24/2019 at 2100 - atorvastatin (LIPITOR) 80 mg tablet, Take 80 mg by mouth once daily., Disp: , Rfl: , 12/24/2019 at 2100 - pantoprazole DR (PROTONIX) 20 mg tablet, Take 20 mg by mouth once daily., Disp: , Rfl: - zolpidem (AMBIEN) 10 mg tab, Take by mouth at bedtime as needed., Disp: , Rfl: , 12/24/2019 at 2100 - ALPRAZolam (XANAX) 0.5 mg tablet, Take 0.5 mg by mouth three times daily as needed for Anxiety. , Disp: , Rfl: , 12/24/2019 at 2100 - Cholecalciferol, Vitamin D3, (VITAMIN D) 1,000 unit cap, Take 2,000 Units by mouth once daily. , Disp: , Rfl: , 12/24/2019 at 2099 - cyanocobalamin (B-12 DOTS) 500 mcg tab, Take by mouth once daily., Disp: , Rfl: , 12/24/2019 at 0800 - magnesium oxide 400 mg cap, Take by mouth once daily., Disp: , Rfl: , 12/24/2019 at 2100 - oxyCODONE-acetaminophen (PERCOCET) 5-325 mg tablet, Take 1 tablet by mouth every 8 hours as needed for Pain., Disp: , Rfl: 0 - aspirin(ECOTRIN LOW STRENGTH 81 MG TAB), Take one(1) tablet daily., Disp: , Rfl: 0, 12/24/2019 at 0800 - ACEBUTOLOL 400 MG CAP, Take one(1) tablet two(2) times daily., Disp: , Rfl: 0, 12/24/2019 at 2100 - calcium carbonate/vitamin d3(CALCIUM 500 WITH VITAMIN D 500 MG (1,250 MG)-200 UNIT TAB), Take one(1) tablet two(2) times daily., Disp: , Rfl: 0, 12/23/2019 at 2100 - aspirin 325 mg tablet, Take 325 mg by mouth one time only. Pre cath, Disp: , Rfl: - perflutren lipid microspheres (DEFINITY) 1.1 mg/mL injection (to be provided with echo procedure), Inject 1.3 mL intravenously as directed. Administration Instructions: If no IV access, insert saline lock prior to administering contrast. Discontinue saline lock post exam. If patient has central line or IVAD, may access for administration according to line specific nursing protocol. Once exam is complete, flush line and de-access per line specific nursing protocol. Diluted IV Bolus: Dilute 1.3 ml of Definity with 8.7 ml of preservative-free saline, Disp: 1.3 mL, Rfl: 0 - tofacitinib 5 mg tab, Take 1 tablet by mouth twice daily. (Patient not taking: Reported on 12/03/2019), Disp: 60 tablet, Rfl: 0 - ALENDRONATE SODIUM (FOSAMAX ORAL), Take 70 mg by mouth once each week., Disp: , Rfl: - ALL PURPOSE MULTIVITAMIN-MIN ORAL TAB, Take one(1) tablet daily., Disp: , Rfl: 0 Social History Tobacco Use - Smoking status: Former Smoker - Smokeless tobacco: Never Used - Tobacco comment: quit at least 10 years ago Substance Use Topics - Alcohol use: Yes Comment: 2 times a year - Drug use: No FAMILY HISTORY Problem Relation Age of Onset - Cancer Father LEUKEMIA AGE 56 - Osteoporosis Mother - Heart Mother CAD,CHF, renal failure - Breast Cancer Sister AGE 46 CA OF BONE - Breast Cancer Maternal Aunt - Breast Cancer Other MATERNAL COUSIN - Diabetes Brother - other (RENAL DIS) Sister DIALYSIS FOR 23 YRS, PAST SURGICAL HISTORY Procedure Laterality Date - ANTERIOR INTERBODY FUSION, CERVICAL 2015 - PAST SURGICAL HISTORY OF colon resected - PAST SURGICAL HISTORY OF cyst knee - ROTATOR CUFF REPAIR Right 2015 ROS: All of the following reviewed and negative except as noted below: see HPI GENERAL: no fever, chills, sweats, weight loss, fatigue, generalized weakness HEENT: no headache, vision changes, eye discomfort, hearing change, ear discomfort, sinus pain, nasal discharge or congestion, oral lesions, soreness, dental problem NECK: no adenopathy, discomfort, change in ROM CHEST: no shortness of breath, dyspnea on exertion, wheezing, cough, sputum production or chest pain HEART: no chest pain, palpitations, syncope ABDOMEN: no nausea, vomiting, constipation, diarrhea, abdominal pain : no dysuria, urgency, frequency, history of stones, incontinence NEURO: no confusion or alteration in consciousness, slurred speech, seizure, focal weakness EXTREMITIES: no new pain, edema, change in ROM HEME: no new adenopathy, bruises, petechiae PSYCH: no depression, anxiety, agitation PAIN PSYCHIATRIC EXAM: GENERAL: alert, oriented to person, place, time JUDGMENT AND INSIGHT: intact APPEARANCE: neatly groomed DEMEANOR: coooperative, not hostile, mistrustful, preoccupied, or demanding ACTIVITY: normal, not hyperactive or hypoactive, no tremors, tics EYE CONTACT: normal SPEECH: normal, rate, volume, articulation, coherence, spontaneity MOOD: normal, without overt sadness, grief, anxiety, appropriate to situation IDEATION: deferred MEMORY: intact PHYSICAL EXAMINATION: GENERAL: well nourished and developed; mild distress; alert and oriented x 3; intact judgement and insight HEENT: no evidence of trauma; cranial nerves intact; eyes clear EOMI; no hearing deficits apparent; nasal passages unremarkable; throat and mucous membranes clear NECK: supple without lymphadenopathy; no JVD; no thyromegaly CHEST: clear bilaterally to auscultation; normal chest movement; no rales or rhonchi +R chest tube; +midline sternal incision c/d/i HEART: regular rate and rhythm, normal S1 and S2, no murmurs, clicks, rubs, or gallops ABDOMEN: soft; nondistended; bowel sounds present; no hepatomegaly; no splenomegaly; no tenderness EXTREMITIES: no evidence of clubbing; no cyanosis; no joint effusion; no edema +chronic RA changes feet>hands NEURO: cranial nerves intact; no focal deficits; no confusion; no tremor; sensorium normal SKIN: no rash; no skin breakdown; no decubitus lesions HEME: no bruising; no adenopathy PSYCH: no evidence of depression; no anxiety; no agitation; no apparent hallucinations BP 113/67 Pulse 91 Temp 36.9 ?C (98.4 ?F) Resp 16 Ht 162.6 cm (5' 4.02") Wt 83.5 kg (184 lb 1.6 oz) LMP 12/16/2004 SpO2 97% BMI 31.58 kg/m? BMI 31.58 kg/(m2) ABNORMAL/NEW FINDINGS: NONE RADIOLOGY/DIAGNOSTICS: LABORATORY: CBC: Recent Labs 12/28/19 0425 WBC 12.74* RBC 3.04* HB 9.4* HCT 26.9* PLT 123* MCV 88.5 MCH 30.9 MPV 9.9 RDW 14.8* CMP: Recent Labs 12/28/19 0425 NA 141 K 3.9 CHLOR 108* CO2 26 BUN 8 CREAT 0.51* GLUC 107* CA 8.0* MG 2.1 ANION 7* Heme: No results for input(s): RETICP, ABSRETIC, LD, KELLY, FE, TIBC, TRANSFERSAT in the last 24 hours. ASSESSMENT ACTIVE PROBLEM LIST Cardiac Dysrhythmia, Unspecified Dysthymic Disorder Anemia, Unspecified Generalized Osteoarthrosis, Unspecified Site Lumbago Sprain of Foot, Unspecified Site Seronegative Rheumatoid Arthritis (Hcc) Angina of Effort (Hcc) Cad (Coronary Artery Disease) Obesity, Class I, Bmi 30-34.9 PLAN: S/p CABG x 3V 12/26; doing well postop day #1 Opiate naive prior to admission. A few years ago had been prescribed daily opiates for chronic multifactorial pain including RA Tylenol 1gm q6h Xanax 0.5mg po tid Gabapentin 1200 mg 3 times daily although patient states she does not always take 3 doses daily Lidoderm patch Allow morphine 2-4 mg IV every 2 hours PRN breakthrough pain Oxycodone 5 mg every 4 hours PRN Plaquenil 200 mg twice daily Senna S twice daily, MiraLAX daily Anticipate short course opiates postop pain Discussed with daughter at bedside Soila Cordova MD [facility] PROGRESS HNO ID: [id number] Author: Vickie Cormier (Pa) Service: Cardiovascular Surgery Author Type: Physician [employer]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 [employer]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 Type: Progress Notes Filed: 12/28/2019 9:38 AM Note Text: CARDIOTHORACIC SURGERY POSTOP PROGRESS NOTE SERVICE DATE: 12/28/2019 SERVICE TIME: 9:15 AM Subjective S/P SURGERY: Procedure(s) (LRB): BYPASS GRAFT ARTERY CORONARY ON-PUMP THREE CORONARY ARTERIAL GRAFTS (N/A) DATE OF SURGERY: 12/27/2019 POSTOP DAY #1 LOS: 3 HPI: This is a 64 year old female with history of HTN, HLD, RA (treated with plaquenil and methotrexate), osteoarthritis (s/p knee replacement), depression, GERD, chronic cervical spine pain (s/p multiple surgical interventions), and a strong family history (brother and sister underwent CABG) who was being evaluated on outpatient basis for chest discomfort/pressure that radiated to shoulder and arm with associated dyspnea on exertion. She ultimately underwent Left Heart Cath revealing severe multivessel disease and she was admitted for CABG workup. INTERVAL EVENTS / PERTINENT ROS: On 12/26, patient underwent CABG x [address] Chavez. Post-op complicated only by pre-existing pain for which pain management is following. Today patient is seen and evaluated in chair. She states her pain is controlled with Oxy IR. She denies shortness of breath, chest pain, and abdominal discomfort. She was concerned about having anti-nausea medication (she has zofran and compazine). Labs and images reviewed. Objective Admission Weight: 85.5 kg (188 lb 6.4 oz) BP 97/82 Pulse 87 Temp 36.9 ?C (98.4 ?F) Resp 15 Ht 162.6 cm (5' 4.02") Wt 83.5 kg (184 lb 1.6 oz) LMP 12/16/2004 SpO2 99% BMI 31.58 kg/m? Body surface area is 1.94 meters squared. Min/Max/Average Temperature AND Blood Pressure: Temp (24hrs), Av.9 ?C (98.5 ?F), Min:36.3 ?C (97.3 ?F), Max:37.4 ?C (99.3 ?F) No data recorded. No data recorded. Intake/Output Summary (Last 24 hours) at 12/28/2019 0915 Last data filed at 12/28/2019 0700 Gross per 24 hour Intake 2895 ml Output 1670 ml Net 1225 ml TELEMETRY: normal sinus rhythm PHYSICAL EXAM: General Appearance: Well developed and well nourished appearance. No acute distress. Midsternal AND SVG incision dry AND intact, without redness, drainage or edema. Head/Eyes: Sclera clear, normal conjunctiva. EOMI Lungs: clear and respiratory effort: normal Heart: regular rhythm, S1, S2 normal and pacing wires present Peripheral Vascular/Arteries: pulses intact Abdomen: soft, non-tender and bowel sounds present Neurologic/Psychiatric: Oriented to person, place, time. Normal affect. No gross focal neurologic deficits. Extremities: no edema Lines, Drains, and Airways Line Peripheral 12/25/19 2325 Assessment Left Antecubital 20 Gauge 2 days Arterial Line/Sheath 12/27/19 Left Radial 1 day Central Line Quadruple Lumen 12/27/19 Non-tunneled Right Neck 1 day Peripheral 12/27/19 Assessment Short Right Hand 18 Gauge 1 day Drain Chest Tube 12/27/19 Assessment Anterior Mediastinal 32 Fr Tube #1 1 day Chest Tube 12/27/19 Assessment Right Anterior Pleural 32 Fr Tube #2 1 day Indwelling Urinary Catheter 12/27/19 Assessment Temperature Monitoring 16 Fr 1 day DATA: Diagnostic tests reviewed for today's visit: Chest X-RAY: -Normal post-op atelectasis -Gastric dilatation noted XR ABDOMEN: -Nonspecific and nonobstructive bowel gas pattern. Recent Labs 12/28/1942412/27/19 1415 12/26/19 0449 12/25/19 2205 HBA1C -- -- -- 5.0 RBC 3.04* 3.42* 3.75* -- WBC 12.74* 19.13* 8.83 -- HB 9.4* 10.5* 11.9 -- HCT 26.9* 30.4* 32.9* -- PLT 123* 110* 176* -- INR 1.05 1.29 -- -- APTT -- 30.2 -- -- NA 141 142 139 139 K 3.9 3.8 3.5* 3.6* CHLOR 108* 112* 105 105 CO2 26 24 25 26 BUN 8 7 8 9 CREAT 0.51* 0.51* 0.57* 0.61 GLUC 107* 120* 97 75 CA 8.0* 7.9* 9.2 9.4 MG 2.1 1.9 -- 2.0 TPROT -- -- -- 6.2* TBILI -- -- -- 1.0 ALKPHOS -- -- -- 60 ALT -- -- -- 19 AST -- -- -- 21 ANION 7* 6* 9 8* Recent Labs 12/28/19 0425 12/27/19 1400 12/27/19 1327 12/27/19 1244 12/27/19 1207 PH 7.379 7.358 -- -- -- PCO2 43.2 41.4 43.4 44.1 41.1 PO2 97.3 92.7 349* 231* 264* BE 0.2 -2.1 -1 -1 -4* HCO3 -- -- 24.4 24.2 21.8* Recent Labs 12/26/19 0449 UPH 6.5 SPGR 1.013 UGLUC NEGATIVE UBILI NEGATIVE UKET NEGATIVE UPROT NEGATIVE Assessment/Plan CAD/UA/NSTEMI/STEMI -S/p CABG x 3 (vernon-lad, svg-diag and circ;evh) -POD #1 -Continue ASA 81, atorvastatin 80, start metoprolol possibly this afternoon -Continue Periop ABX -Maintain Central line, Chest Tubes, Pacing Wires, Arterial Line -Remove Martinez -Remove Arterial line if hemodynamically stable -Add Diet and Nutrition consult -Add Bowel regimen -Ambulate as tolerated -Post-thorax vest Anticipated Post-Op Respiratory Insufficiency -Currently 99% on 2L NC; continue to wean -Encourage IS, cough, and deep breathing Post Op Pain -History of chronic pain; Pain management is on consult -Continue pain regimen per Pain Management Leukocytosis -Currently 12.74; Likely reactive -Afebrile -Continue to monitor Acute Blood Loss Anemia -HANDH currently 9.4/26.9; no transfusion at this time -Continue to monitor Thrombocytopenia -Currently 123; Likely reactive -Continue to monitor -Consider modifying lovenox or protonix if no resolution Transient Post-Op Hyperglycemia -Last HA1C was 5.0 -D/c Insulin gtt -No sliding scale needed at this time DVT ppx -Continue SCDs, Christian Hose and hold lovenox for elevated bleeding risk GI ppx -Continue protonix Dispo -Remain in CVICU Planned in collaboration with Dr. Chavez and CVICU team Tests/Labs Ordered: 1. Chest X-ray 2. BMP 3. CBC SIGNATURE: Vickie Cormier PA-C PATIENT NAME: Nadira Benítez DATE: December 28, 2019 TIME: 9:15 AM PAGER/CONTACT #:[id number] [phone] [id number] [facility] PROGRESS HNO ID: [id number] Author: Eleno Chavez Service: Thoracic Surgery Author Type: Physician Type: Progress Notes Filed: 12/28/2019 8:22 AM Note Text: Patient seen this AM with bedside nurse then reviewed with ARY. Labs, data, cxr, and careplan reviewed. P-orders placed. Normal [facility] Protimeon 12-28-2019 INR Coag (PPP) [Relative time] 1.05 {INR} Normal 0.90-1.30 [facility] Comment on above: Result Comment: Marilee min K Antagonist (VKA) Therapeutic Range: INR 2 to 3 (Target INR of 2.5) Note: For patients treated with VKA drugs, such as warfarin, the [employer] 2012 Guideline recommends a therapeutic INR range of 2 to 3 (target INR of 2.5). This recommendation includes high-risk patients with antiphospholipid syndrome with previous arterial or venous thromboembolism, current-generation mechanical or bioprosthetic aortic heart valve replacement. Note: Patients with mechanical aortic valve replacement and additional risk factors for thromboembolic events (atrial fibrillation, previous thromboembolism, LV dysfunction, hypercoagulable conditions) or an older generation mechanical AVR (i.e., ball in-Cage) or any mechanical MVR should have a INR therapeutic range of 2.5 to 3.5 target INR of 3). Willis GH, et al. Chest 2012; 141:7S-47S Brandan RA et al. [facility] 2017; 70: 252-289 Performed By: #### M AG #### [place] [id number] PT Coag (PPP) [Time] 10.9 s Normal 9.7-13.0 [facility] Comment on above: Performed By: #### M AG #### [place] [id number] THERAPY NTon 12-28-2019 THERAPY NT HNO ID: [id number] Author: Hilda Catalan/Dinesh Hines Service: Occupational Therapy Author Type: Occupational Therapist Type: Therapy (PT/OT/Speech/Resp) Filed: 12/28/2019 3:46 PM Note Text: Occupational Therapy Evaluation SERVICE DATE: 12/28/2019 SERVICE TIME: 1450 to 1515 ROOM: [id number] Recommended Discharge Disposition: Home Anticipated Discharge Needs: Physical Assist at Home Physical Assist at Home for: Cleaning;Laundry;Meals;S hopping;Transportation OT Recommendations to Nursing: To Bathroom for ADL?s /and or Toileting;OOB for meals;With assist of 1 person Equipment: Wheeled Walker OT 6 Clicks Score: 17 Precautions/Activity Restrictions: Fall Risk;Lines/Tubes/Drains; Sternal ASSESSMENT: Patient presents with deficits in feeding, grooming, UE bathing/dressing, LE bathing/dressing, functional transfers, functional mobility, decreased safety awareness, and decreased insight to deficits after CABG. Requires skilled OT to maximize independence with ADLs and functional transfers. Patient Disposition at Start of Session: OOB in Chair;Call Bonilla in Reach;Family Present Patient Disposition at End of Session: OOB in Chair;Call Bonilla in Reach;Family Present Tolerated Full Session Occupational Therapy Problem List: Safety Deficits;Impaired Self Care;Decreased Activity Tolerance;Decreased Strength;Functional Mobility Impairment;Balance Impaired Patient /Caregiver Goals: Go Home Goals for Plan of Care: Grooming with: Supervision(standing at the sink ) Upper Body Bathing with: Stand By Assistance Upper Body Dressing with: Stand By Assistance Lower Body Bathing with: Modified Independent Lower Body Dressing with: Modified Independent Toilet Hygiene with: Supervision Chair Transfer with: Supervision Toilet Transfer with: Supervision Tolerate (minutes of functional activity): 30 Functional Activity with: Supervision Demonstrate Competence With Education with: Supervision(sternal precautions with self care) Rehab Potential: Good PLAN: Treatment Frequency (times per week): 5(2-5) Current admission Treatment Interventions: Education;Self Care / Home Management;Energy Conservation Training;Strengthening;F unctional Mobility Training;Balance Training Plan of Care developed with: Patient;Family TREATMENT INTERVENTIONS: Therapy Diagnosis: Reduced mobility-other;Decreased activities of daily living (ADL);Muscle Weakness (generalized);Unsteadine ss on feet;General symptoms and signs-other Interventions Provided: Evaluation;Self Mcfp Management (43511) $ Evaluation-Moderate (94360) Billed Units: 1 unit OT Evaluation Moderate Complexity: Occupational Profile - Extended review of patient's medical record completed including patient's physical, cognitive, and psycho-social history (please see current hospital course of evaluation). Occupational Performance - Pt presents with deficits in feeding, grooming, UE bathing/dressing, LE bathing/dressing, functional transfers, functional mobility, decreased safety awareness, decreased insight into deficits Complexity in Clinical Decision Making - The extent of clinical reasoning was moderate, several treatment options present for the patient, need for modification during the evaluation was minimal/moderate, comorbidities affecting occupational performance: CAD, cervical fusion. Self Mcfp Management (63616) Treatment Minutes: 10 1 unit Skilled Intervention(s): . Educated on the role of OT in the acute care setting. Instructed in post-op instructions during ADLs after CABG. Discussed sternal precautions during ADLs and functional transfers. Instructed in energy conservation throughout, provided rest breaks as needed. Provided instruction, cuing and facilitation for upper body dressing using effective technique with sternal precaution. Advised on the importance of NOT reaching back for coat/shirt/vest. Provided instruction, cuing and facilitation for lower body dressing using the figure four technique to avoid excessive leaning/reaching forward. Education in proper don/doff technique and wear schedule of sternal vest. Provided verbal and demonstrative instruction on proper sequence for getting in and out of the car and shower within sternal restrictions. Discussed the benefit and value of using a shower seat to complete bathing activities in a safe manner after surgery. Also instructed on how to wash hair within given restrictions. Facilitated toilet transfer, educated on hand and body placement and the importance of hold a pillow and/or sternal vest with descent into chair. Total Timed Code Treatment Minutes: 10 Total Treatment Time (minutes): 25 SUBJECTIVE: Current Hospital Course: Chart reviewed; . 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 "I am tired now." Home Environment Patient Lives With: Family(son and his family) Assistance Available: 24 Hour(son works from home and is available) Entry To Home: No Stairs Number Of Stairs To Bed/Bath: 0 Tub/Shower Type: walk in shower Prior Functional Level: Within Functional Limits Prior Functional Level Comments: Pt reports fully independent prior to admit. 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 OBJECTIVE: Cognition/Communication Deficits Responsiveness: Alert Follows Commands: 2-step Commands Executive Function Deficits: Safety Awareness Safety Awareness Deficit: Minimal impairment CURRENT FUNCTIONAL STATUS: Current Activities of Daily Living Assist Level Feeding Set Up Grooming Stand By Assistance Bathing Upper Body Minimal Assistance Bathing Lower Body Moderate Assistance Dressing Upper Body Minimal Assistance Dressing Lower Body Moderate Assistance Toileting Minimal Assistance Functional Mobility Assist Level Rolling Supine to Sit Sit to Supine Scooting Sit to Stand Contact Guard Assistance Stand to Sit Contact Guard Assistance Bed to Chair Toilet/Commode Contact Guard Assistance Functional Mobility Contact Guard Assistance (cart) Functional Mobility Comments: functional mobility around nurses station Range of Motion: WFL Strength: (not tested due to sternal precautions) Balance: Static Standing;Dynamic Standing Static Standing Balance: Fair Patient able to maintain balance with handhold support, may require occasional minimal assistance Dynamic Standing Balance: Fair Patient accepts minimal challenge, able to maintain balance while turning head/trunk Please see discipline specific clinical documentation flowsheet for complete details for this therapy evaluation/treatment. SIGNATURE: Hilda Hines OTR/L PATIENT NAME: Nadira Benítez DATE: December 28, 2019 TIME: 3:43 PM Normal [facility] THERAPY NT HNO ID: [id number] Author: Alex (Pt) JUAN Martinez Service: Physical Therapy Author Type: Physical Therapist Type: Therapy (PT/OT/Speech/Resp) Filed: 12/28/2019 12:31 PM Note Text: Physical Therapy Evaluation SERVICE DATE: 12/28/2019 SERVICE TIME: 1157 to 1220 ROOM: [place] [id number] Recommended Discharge Disposition: Home Recommended Discharge Disposition Comments: Pt performed well on initial evaluation, anticipate will progress well with no further PT needs at discharge. Anticipated Discharge Needs: Physical Assist at Home Physical Assist at Home for: Cleaning;Laundry;Shoppin g;Transportation Recommended Discharge Equipment: No equipment needs anticipated PT Recommendations to Nursing: Ambulate without device;To bathroom;In halls;Transfer to/from chair;OOB for Meals;With assist of 1 person Device: Other: See Comment(CVICU cart) PT 6 Clicks Score: 19 Precautions/Activity Restrictions: Fall Risk;Sternal ASSESSMENT : This patient was admitted for CABGx3, has the past medical history of CAD, cervical fusion impacting current functional level, as well as the social factors complicating the discharge of uncomplicated. This patient is below baseline functioning of independent and will benefit from continued skilled therapy in the hospital for treatment of the following body systems/impairments: musculoskeletal strength, ROM; neuromuscular control, coordination, balance; functional mobility including bed mobility, transfers, gait, stairs; cardiopulmonary endurance to physical activity; Patient Disposition at Start of Session: Supine in Bed;Call Bonilla in Reach Patient Disposition at End of Session: OOB in Chair;Call Bonilla in Reach Tolerance Limited By Fatigue Physical Therapy Problem List: Pain;Safety Deficits;Impaired Self Care;Decreased Activity Tolerance;Functional Mobility Impairment;Balance Impaired Patient /Caregiver Goals: Walk;Go Home;Care For Self Goals for Plan of Care: Able to perform HEP with: Independent(standing BLE exercises) Transfer supine to/from sit with: Supervision Transfer sit to/from stand with: Supervision Ambulate with: Supervision Distance: 500 ft Device: No Device Goal: recall 3/3 sternal precautions and maintain them with mobility Rehab Potential: Excellent PLAN: Treatment Frequency (times per week): 3(1-3) Current admission Treatment Interventions: Education;Strengthening; Functional Mobility Training;Balance Training;Neuromuscular Re-education Plan of Care developed with: Patient TREATMENT INTERVENTIONS: Therapy Diagnosis: Reduced mobility-other Interventions Provided: Evaluation;Therapeutic Activity (30173) $ Evaluation-Moderate (59041) Billed Units: 1 unit History and examination of body systems see assessment section above. This patient?s clinical presentation is evolving. The patient required a moderate complexity evaluation. Therapeutic Activity (28851) Treatment Minutes: 8 1 unit Skilled Intervention(s): Educated on role of physical therapy in the hospital and in discharge planning, benefits of participation in physical activity on progression of functional status, risks of immobility Educated in sternal precautions including no pushing or pulling against resistance, no lifting >10 lbs, and no splaying chest including reaching overhead or reaching behind. Cued to maintain them during mobility Facilitated supine to sit in sit pivot technique with HOB elevated. Provided min A at trunk to avoid using arms. Facilitated sit to stand with rocking technique, cued to clutch blanket roll to chest and stand with only legs. Facilitated gait in hallway with CVICU cart, monitored vitals throughout and provided standing rest breaks as needed. Pt able to achieve 200 ft around CVICU, she did not need specific cues on gait deviations. Educated in expectations for continued fatigue post op and that she may benefit from spacing out her daily activities strategically upon returning home. Educated that doing several activities in a row may cause increased fatigue, and she should plan for rest breaks between activities. Total Timed Code Treatment Minutes: 8 Total Treatment Time (minutes): 23 SUBJECTIVE: Current Hospital Course: Chart reviewed; Pt POD1 CABG x3 Reason for Physical Therapy Consult : eval Relevant Past Medical History: CAD, cervical fusion Patient Report: Pt pleasant and agreeable to physical therapy. Home Environment Patient Lives With: Family(son and his family) Assistance Available: 24 Hour(son works from home and is available) Entry To Home: No Stairs Number Of Stairs To Bed/Bath: 0 Tub/Shower Type: walk in shower Prior Functional Level: Within Functional Limits Prior Functional Level Comments: Pt reports fully independent prior to admit. 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 OBJECTIVE: Range of Motion: WFL Except;ROM Limitation Comments ROM Limitation Comments: within sternal precautions Strength: WFL Except;Strength Limitation Comments Strength Limitation Comments: within sternal precautions CURRENT FUNCTIONAL STATUS: Current Functional Mobility Assist Level Additional Information Rolling Supine to Sit Minimal Assistance Sit to Supine Scooting Sit to Stand Contact Guard Assistance Stand to Sit Contact Guard Assistance Bed to Chair Toilet/Commode Gait Contact Guard Assistance Gait Device: Other: See Comment(CVICU cart) Gait Distance (feet): 200 ft (around CVICU) Stairs Curb Step Car Transfer General Deviations/Observations: Patti decreased;Flexed trunk posture;Step length decreased Balance: Static Standing;Dynamic Standing Static Standing Balance: Fair Patient able to maintain balance with handhold support, may require occasional minimal assistance Dynamic Standing Balance: Fair Patient accepts minimal challenge, able to maintain balance while turning head/trunk JH-HLM: 7: Walk 25 feet or more Please see discipline specific clinical documentation flowsheet for complete details for this therapy evaluation/treatment. SIGNATURE: Alex Martinez PT PATIENT NAME: Nadira Benítez DATE: December 28, 2019 TIME: 12:25 PM Normal [facility] XR ABDOMEN 1V SUPINEon 12-27 XR ABDOMEN 1V SUPINE Final Report DATE OF EXAM: Dec 28 2019 2:57AM [id number] - XR ABDOMEN 1V SUPINE / PROCEDURE REASON: Nausea, vomiting Physician Interpretation XR ABDOMEN 1V SUPINE INDICATION: Nausea. Vomiting. COMPARISON: None. TECHNIQUE: AP supine abdomen, 2 films. FINDINGS: The bowel gas pattern is nonspecific and nonobstructive with no air dilated bowel. Moderate stool in the ascending colon. IMPRESSION: Nonspecific and nonobstructive bowel gas pattern. Molder Sweep: JAYDEN Transcribe Date/Time: Dec 28 2019 2:59A Dictated by : REBECA HALL MD This examination was interpreted and the report reviewed and electronically signed by: REBECA HALL MD on Dec 28 2019 3:00AM EST Normal [facility] XR CHEST 1V FRONTALon 2019 XR CHEST 1V FRONTAL Final Report DATE OF EXAM: Dec 28 2019 5:43AM [id number] [id number] - XR CHEST 1V FRONTAL / PROCEDURE REASON: Post-operative / post-procedure assessment, asymptomatic Physician Interpretation EXAM TITLE: AP/PA CHEST X RAY COMPARISON: 12/27/2019. CLINICAL HISTORY: Post-operative / post-procedure assessment, asymptomatic ENCOUNTER: Not applicable MQ: XC1_5 RESULT: Examination limited due to overlying EKG leads. Lines, tubes, and devices: Interval removal of endotracheal and enteric tubes. No interval change regarding right internal jugular central venous catheter with tip at the cavoatrial junction. Again demonstrated is mediastinal drain as well as left-sided thoracostomy tube, essentially unchanged in position. Lungs and pleura: Low lung volumes, likely related to poor inspiratory result. Atelectasis versus consolidation left lower lung zone, essentially unchanged. No new focal airspace consolidation, discrete effusion or pneumothorax. Cardiomediastinal silhouette: Status post median sternotomy, wires are intact. Post surgical changes from coronary artery bypass graft again noted. Cardiomediastinal silhouette not enlarged. Other: Again demonstrated are degenerative changes at the glenohumeral joints bilaterally. Anterior and posterior cervical spine fixation hardware partially visualized, appears to be intact, however evaluation limited on single projection. Osseous structures and soft tissues grossly intact. IMPRESSION: Interval removal of endotracheal and enteric tubes. Low lung volumes with atelectasis versus consolidation left lower lung zone, essentially unchanged in appearance. No discrete new focal airspace consolidation, effusion or pneumothorax. Molder Sweep: [facility] Transcribe Date/Time: Dec 28 2019 6:53A Dictated by : CALEB SANTIAGO MD This examination was interpreted and the report reviewed and electronically signed by: CALEB SANTIAGO MD on Dec 28 2019 6:56AM EST Normal [facility] ANES Dominique 12-27-2019 ANES POST HNO ID: [id number] Author: Jd Feliz Service: Anesthesiology Author Type: Physician Type: Anesthesia PostOp Filed: 12/27/2019 4:04 PM Note Text: POST ANESTHESIA EVALUATION NOTE SERVICE DATE: 12/27/2019 SERVICE TIME: 4:04 PM : 1955 Vitals: 12/27/19 0732 12/27/19 1445 12/27/19 1500 12/27/19 1515 Temp: 36.7 ?C (98.1 ?F) 36.3 ?C (97.3 ?F) 36.5 ?C (97.7 ?F) 36.6 ?C (97.9 ?F) 12/27/19 1345 12/27/19 1445 12/27/19 1500 12/27/19 1515 Arterial BP 1: 127/64 97/56 103/60 104/61 BP: 12/27/19 1345 12/27/19 1445 12/27/19 1500 12/27/19 1515 Pulse: 77 82 80 86 12/27/19 1345 12/27/19 1445 12/27/19 1500 12/27/19 1515 Resp: 11 14 12 15 12/27/19 1345 12/27/19 1445 12/27/19 1500 12/27/19 1515 SpO2: 100% 99% 100% 97% Validated Vital Signs: Yes POST ANES STATUS: No apparent anesthetic complications. The patient is appropriately hydrated with stable respiratory and cardiovascular status. Patient has safe and adequate airway control. The patient has appropriate pain relief and no significant post operative nausea or vomiting. The patient has achieved baseline mental status. Intra-Operative Events: No Significant Anesthesia Events Further assessment by Anesthesia Service: None Other Remarks: SIGNATURE: Jd Feliz MD PATIENT NAME: Nadira Benítez DATE: December 27, 2019 TIME: 4:04 PM PAGER/CONTACT #: [facility] ANES PREOPon 12-27-2019 ANES PREOP HNO ID: [id number] Author: Charlie Pulido Service: Anesthesiology Author Type: Physician Type: Anesthesia PreOp Filed: 12/27/2019 7:25 AM Note Text: ANESTHESIOLOGY DAY OF SURGERY NOTE SERVICE DATE: 12/27/2019 SERVICE TIME: 7:23 AM : 1955 Procedure(s) (LRB): BYPASS GRAFT ARTERY CORONARY ON-PUMP THREE CORONARY ARTERIAL GRAFTS (N/A) Surgeon(s): Eleno Chavez Estimated body mass index is 31.58 kg/m? as calculated from the following: Height as of this encounter: 162.6 cm (5' 4.02"). Weight as of this encounter: 83.5 kg (184 lb 1.6 oz). Most recent hematocrit and potassium results: Hematocrit 32.9 12/26/2019 Potassium 3.5 12/26/2019 ANES DOS/PREOP NOTE: Vitals: 12/26/19199912/26/19 2307 12/27/19 0545 12/27/19 0635 BP: 131/68 130/67 124/84 Pulse: 67 65 71 Resp: Temp: 36.5 ?C (97.7 ?F) 36.6 ?C (97.9 ?F) 36.6 ?C (97.9 ?F) TempSrc: Oral Oral Oral SpO2: 97% 99% 95% Weight: 83.5 kg (184 lb 1.6 oz) Height: 162.6 cm (5' 4.02") ACTIVE PROBLEM LIST Cardiac Dysrhythmia, Unspecified Dysthymic Disorder Anemia, Unspecified Generalized Osteoarthrosis, Unspecified Site Lumbago Sprain of Foot, Unspecified Site Seronegative Rheumatoid Arthritis (Hcc) Angina of Effort (Hcc) Cad (Coronary Artery Disease) PAST MEDICAL HISTORY Diagnosis Date - Anemia, unspecified - Cardiac dysrhythmia, unspecified - Cervical vertebral fusion 2014 - Dysthymic disorder - Esophageal reflux - Generalized osteoarthrosis, unspecified site knees - Lumbago PAST SURGICAL HISTORY Procedure Laterality Date - ANTERIOR INTERBODY FUSION, CERVICAL 2015 - PAST SURGICAL HISTORY OF colon resected - PAST SURGICAL HISTORY OF cyst knee - ROTATOR CUFF REPAIR Right 2015 FAMILY HISTORY Problem Relation Age of Onset - Breast Cancer Sister AGE 46 CA OF BONE - Osteoporosis Mother - Breast Cancer Maternal Aunt - Breast Cancer Other MATERNAL COUSIN - Cancer Father LEUKEMIA AGE 56 - Heart Mother CAD,CHF, renal failure - Diabetes Brother - other (RENAL DIS [Other]) Sister DIALYSIS FOR 23 YRS, Social History: Social History Tobacco Use - Smoking status: Former Smoker - Smokeless tobacco: Never Used - Tobacco comment: quit at least 10 years ago Substance Use Topics - Alcohol use: Yes Comment: 2 times a year - Drug use: No No current facility-administered medications on file prior to encounter. Current Outpatient Medications on File Prior to Encounter Medication Sig - hydrOXYchloroQUINE (PLAQUENIL) 200 mg tablet Take 200 mg by mouth twice daily. - methotrexate 2.5 mg tablet Take 8 tablets by mouth once each week. - folic acid 1 mg tablet Take 1 tablet by mouth once daily. - folic acid 1 mg tablet Take 2 tablets by mouth once daily. - celecoxib (CELEBREX) 200 mg capsule Take 200 mg by mouth twice daily. - pyridoxine, vitamin B6, (VITAMIN B-6) 100 mg tablet Take 25 mg by mouth once daily. - DULoxetine (CYMBALTA) 30 mg capsule Take 30 mg by mouth once daily. - gabapentin (NEURONTIN) 600 mg tablet Take 1,200 mg by mouth three times daily. - lisinopril (ZESTRIL, PRINIVIL) 10 mg tablet Take 10 mg by mouth twice daily. - atorvastatin (LIPITOR) 80 mg tablet Take 80 mg by mouth once daily. - pantoprazole DR (PROTONIX) 20 mg tablet Take 20 mg by mouth once daily. - zolpidem (AMBIEN) 10 mg tab Take by mouth at bedtime as needed. - ALPRAZolam (XANAX) 0.5 mg tablet Take 0.5 mg by mouth three times daily as needed for Anxiety. - Cholecalciferol, Vitamin D3, (VITAMIN D) 1,000 unit cap Take 2,000 Units by mouth once daily. - cyanocobalamin (B-12 DOTS) 500 mcg tab Take by mouth once daily. - magnesium oxide 400 mg cap Take by mouth once daily. - oxyCODONE-acetaminophen (PERCOCET) 5-325 mg tablet Take 1 tablet by mouth every 8 hours as needed for Pain. - aspirin(ECOTRIN LOW STRENGTH 81 MG TAB) Take one(1) tablet daily. - ACEBUTOLOL 400 MG CAP Take one(1) tablet two(2) times daily. - calcium carbonate/vitamin d3(CALCIUM 500 WITH VITAMIN D 500 MG (1,250 MG)-200 UNIT TAB) Take one(1) tablet two(2) times daily. - aspirin 325 mg tablet Take 325 mg by mouth one time only. Pre cath - perflutren lipid microspheres (DEFINITY) 1.1 mg/mL injection (to be provided with echo procedure) Inject 1.3 mL intravenously as directed. Administration Instructions: If no IV access, insert saline lock prior to administering contrast. Discontinue saline lock post exam. If patient has central line or IVAD, may access for administration according to line specific nursing protocol. Once exam is complete, flush line and de-access per line specific nursing protocol. Diluted IV Bolus: Dilute 1.3 ml of Definity with 8.7 ml of preservative-free saline - tofacitinib 5 mg tab Take 1 tablet by mouth twice daily. (Patient not taking: Reported on 12/03/2019) - ALENDRONATE SODIUM (FOSAMAX ORAL) Take 70 mg by mouth once each week. - ALL PURPOSE MULTIVITAMIN-MIN ORAL TAB Take one(1) tablet daily. Current Facility-Administered Medications Medication Dose Route Frequency Provider Last Rate Last Dose - [MAR Hold due to Transfer] oxyCODONE-acetaminophen 5-325 mg 1 tablet (PERCOCET) 1 tablet ORAL q 4 H PRN Soila K Scantling 1 tablet at 12/26/19909 - [MAR Hold due to Transfer] ALPRAZolam 0.5 mg tab(s) (XANAX) 0.5 mg ORAL TID Khaled Meloud Sleik 0.5 mg at 12/26/192027 - [MAR Hold due to Transfer] docusate sodium 100 mg cap(s) (COLACE) 100 mg ORAL BID PRN Soila K Scantling - [MAR Hold due to Transfer] bisacodyl EC 10 mg tab(s) (DULCOLAX) 10 mg ORAL BID PRN Soila K Scantling - [MAR Hold due to Transfer] hydrALAZINE 10 mg injection (APRESOLINE) 10 mg INTRAVENOUS q 6 H PRN Yulissa (Director Of Women'S Services Smelter Operator) SALOMÓN Enriquez - [MAR Hold due to Transfer] alendronate 70 mg tab(s) (FOSAMAX) 70 mg ORAL q 2 WEEKS Khaled Meloud Sleik - [MAR Hold due to Transfer] aspirin 81 mg chewable tab(s) 81 mg ORAL DAILY Khaled Meloud Sleik 81 mg at 12/27/19 0546 - [MAR Hold due to Transfer] gabapentin 1,200 mg cap(s) (NEURONTIN) 1,200 mg ORAL TID Khaled Meloud Sleik 1,200 mg at 12/27/19 0547 - [MAR Hold due to Transfer] atorvastatin 80 mg tab(s) (LIPITOR) 80 mg ORAL AT BEDTIME Khaled Meloud Sleik 80 mg at 12/26/192026 - [MAR Hold due to Transfer] hydrOXYchloroQUINE 200 mg tab(s) (PLAQUENIL) 200 mg ORAL BID Khaled Meloud Sleik 200 mg at 12/26/192027 - [MAR Hold due to Transfer] metoprolol tartrate (short acting) 25 mg tab(s) (LOPRESSOR) 25 mg ORAL q 12 H Humberto Mcpherson Sleik 25 mg at 12/27/19 0546 - [MAR Hold due to Transfer] mupirocin 2 % ointment (BACTROBAN) TOPICAL 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) SALOMÓN Enriquez - [MAR Hold due to Transfer] nitroglycerin sublingual 0.4 mg tab(s) (NITROQUICK) 0.4 mg SUBLINGUAL PRN Huber Artis - [MAR Hold due to Transfer] zolpidem 10 mg tab(s) (AMBIEN) 10 mg ORAL HS PRN Alonso Doty 10 mg at 12/26/19 2305 - [MAR Hold due to Transfer] isosorbide mononitrate ER 30 mg tab(s) (IMDUR) 30 mg ORAL DAILY (6 AM) Alonso Doty 30 mg at 12/27/19 0600 - [MAR Hold due to Transfer] acetaminophen 325-650 mg tab(s) (TYLENOL) 325-650 mg ORAL q 4 H PRN Alonso Doty 650 mg at 12/27/19 0547 Allergies: ALLERGIES Allergen Reactions - Bactrim [Sulfametho* Rash DOS EXAM: Adequate NPO Status: Yes Anesthetic Risks, Benefits, Alternatives, Personnel and Consent Discussed: Yes Patient agrees to proceed: Yes Previous Anesthesia: No history of adverse event Airway Assessment: MP 3; Neck ROM: MILD Limited Flexion and Extension; Airway Evaluation: No significant abnormalities Symptoms of Sleep Apnea: Hypertension and Age over 50 (64 year old) Dentition: Poor dentition Multiple missing teeth Chipped, loose and/or missing Additional Physical Exam: Lungs: Patient health status unchanged since recent history and physical. See history and physical for exam findings. Cardiac: Patient health status unchanged since recent history and physical. See history and physical for exam findings. Additional Pertinent Findings: N/A Blood Products: Will accept Blood/Blood Products Anesthetic Plan: General Anesthetic Monitoring: Standard ASA Monitors, Invasive Hemodynamic Monitoring Arterial line, KVNG - patient denies history of stricture or varices and CVP, Potential Prolonged Intubation, Potential ICU Admission Postop and Potential Multiple Transfusions Pain Management Plan: Parenteral or Oral ASA Class: 4 Other Medical Problems: MV CAD with preserved EF, HTN, HLD, RA/OA, Anemia Chronic Beta Chuy medication administered within 24 hours: Yes I have interviewed and examined the patient. I have reviewed the medical record and/or the pre-anesthesia evaluation, pertinent labs, and test results. Significant changes in the patient's condition since the History and Physical, not otherwise documented in primary service progress notes: No This contains updated information obtained within 48 hours of Surgery/Procedure. SIGNATURE: Charlie Pulido MD PATIENT NAME: Nadira Benítez DATE: December 27, 2019 TIME: 7:23 AM CSN: [id number] Normal [facility] Activated PTTon 12-27-2019 aPTT Coag (Bld) [Time] 30.2 s Normal 23.0-32.[address] [facility] Comment on above: Result Comment: Unfr actionated Heparin Therapeutic Ranges: Standard Heparin Nomogram: 53 to 78 seconds (anti-Xa level of 0.3 to 0.7 U/mL) Low Dose/ACS Nomogram: 49 to 67 seconds (anti-Xa level of 0.2 to 0.5 U/mL) Stroke Treatment Nomogram: 49 to 67 seconds (anti-Xa level of 0.2 to 0.5 U/mL) Note: The APTT therapeutic range has been determined for the current lot of laboratory APTT reagent in use throughout the [facility]. Performed By: #### H A1C #### [place] [id number] BRIEF OP NOTon 12-27-2019 BRIEF OP NOT HNO ID: [id number] Author: Eleno Chavez Service: Thoracic Surgery Author Type: Physician Type: Brief Op Note Filed: 12/27/2019 1:29 PM Note Text: CARDIOTHORACIC BRIEF OP NOTE LOG ID: [id number] SURGERY/PROCEDURE DATE: 12/27/2019 INCISION/PROCEDURE START TIME: 8:56 AM INCISION CLOSE/PROCEDURE END TIME: SURGEON(S) AND HOME SALES SERVICE PROFESSIONAL(S): Surgeon(s) and Role: * Eleno Chavez - Primary * Brian Fontaine MD - Assisting Physician Offshore Wind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: Liliana Sarkar Sail Maker: Vickie Pacheco) SA Chet; Marin () SA Monique PROCEDURES AND ANESTHESIA: CABG X 3 skel VERNON to LAD, svg to diag, svg to circ. Procedure(s) and Anesthesia Type: * BYPASS GRAFT ARTERY CORONARY ON-PUMP THREE CORONARY ARTERIAL GRAFTS - General Great Saphenous Vein, Right, Percutaneous endoscopic ANESTHESIA: General BRIEF FINDINGS: LAD 1.5mm, diag 1.5mm, circ 1.5mm ESTIMATED BLOOD LOSS: 200ml SPECIMENS: None COMPLICATIONS: None . PREOPERATIVE DIAGNOSIS: coronary artery disease and unstable angina. POSTOPERATIVE DIAGNOSIS: Same with intraop anemia H/H 10/29 requiring transfusion. SIGNATURE: Eleno Chavez MD PATIENT NAME: Nadira Benítez DATE: December 27, 2019 TIME: 1:25 PM PAGER/CONTACT #: [phone] Normal [facility] Basic Metabolic Panelon 12-10 Anion gap [Moles/Vol] 6 mmol/L Low 9-18 [facility] Comment on above: Performed By: #### B MP #### [address] [address] Calcium [Mass/Vol] 7.9 mg/dL Low 8.5-10.2 [facility] Comment on above: Performed By: #### B MP #### [facility] [address] [place], [place] [address] Chloride [Moles/Vol] 112 mmol/L High 97-105 [facility] Comment on above: Performed By: #### B MP #### [facility] [address] [place], [place] [address] CO2 Blood 24 mmol/L Normal 22-30 [facility] Comment on above: Performed By: #### B MP #### [facility] [address] [place], [place] [address] Creatinine [Mass/Vol] 0.51 mg/dL Low 0.58-0.96 [facility] Comment on above: Performed By: #### B MP #### [facility] [address] [place], [place] [address] Glucose [Mass/Vol] 120 mg/dL High 74-99 [facility] Comment on above: Result Comment: The [place] [employer] (ADA) provides guidance for cutoff values for fasting glucose and random glucose. The ADA defines fasting as no caloric intake for at least 8 hours.Fasting plasma glucose results between 100 to 125 mg/dL indicate increased risk for diabetes (prediabetes). Fasting plasma glucose results greater than or equal to 126 mg/dL meet the criteria for diagnosis of diabetes. In the absence of unequivocal hyperglycemia, results should be confirmed by repeat testing. In a patient with classic symptoms of hyperglycemia or hyperglycemic crisis, random plasma glucose results greater than or equal to 200 mg/dL meet the criteria for diagnosis of diabetes. Reference: Standards of Medical Care in Diabetes 2016; [place] [employer]. Diabetes Care. 2016;39(Suppl 1). Performed By: #### B MP #### [facility] [address] [place], [place] [address] Potassium [Moles/Vol] 3.8 mmol/L Normal 3.7-5.1 [facility] Comment on above: Performed By: #### B MP #### [address] [address] Sodium [Moles/Vol] 142 mmol/L Normal 136-144 [facility] Comment on above: Performed By: #### B MP #### [address] [address] Urea nitrogen [Mass/Vol] 7 mg/dL Normal 7-21 [facility] Comment on above: Performed By: #### B MP #### [address] [address] Blood Gas Arterialon 020 FIO2 Value Not Given Normal [facility] Comment on above: Performed By: #### H A1C #### [address] [address] Base Excess -2.1 mmol/L Normal -3.0-3.0 [facility] Comment on above: Performed By: #### H A1C #### [address] [address] HCO3 (Bld) [Moles/Vol] 23.1 mmol/L Normal 21.0-28.0 [facility] Comment on above: Performed By: #### H A1C #### [address] [address] O2% Sat Arterial 98.0 % Normal 96.0-100.0 [facility] Comment on above: Performed By: #### H A1C #### [facility] [address] [place], [place] [address] PCO2 Arterial 41.4 mm Hg Normal 35.0-45.0 [facility] Comment on above: Performed By: #### H A1C #### [facility] [address] [place], [place] [address] pH Arterial 7.358 Normal 7.350-7.45 0 [facility] Comment on above: Performed By: #### H A1C #### [facility] [address] [place], [place] [address] PO2 Arterial 92.7 mm Hg Normal 83.0-108.0 [facility] Comment on above: Performed By: #### H A1C #### [facility] [address] [place], [place] [address] CONSULTon 12-27-2019 CONSULT HNO ID: [id number] Author: Taylor Boogie Service: Critical Care Author Type: Physician Type: Consults Filed: 12/27/2019 4:49 PM Note Text: [facility] INITIAL CONSULTATION NOTE Patient Name: Nadira Benítez REASON FOR CONSULT: Dr. Chavez REQUESTING PHYSICIAN: Humberto Tate ASSESSMENT: 64 year old female with hypertension, prior tobacco use, strong family history of CAD, seronegative rheumatoid arthritis presents s/p CABG. Pulmonary consulted for vent management. Patient now extubated. 1. Anticipated acute post-op respiratory insufficiency 2. CABG day 0 3. History of smoking 4. Seronegative RA RECOMMENDATIONS: - post- op cabg management per CT surgery - maintain O2 sats > 92% - incentive spirometry - extubated - DVT ppx per primary team - early ambulation Thank you for the consultation. We will sign off. Please call with questions. Taylor Boogie MD [facility] STAFF PHYSICIAN NOTE OF PERSONAL INVOLVEMENT IN CARE This patient has a high probability of sudden, clinically significant deterioration, which requires the highest level of physician preparedness to intervene urgently. I managed/supervised life or organ supporting interventions that required frequent physician assessment. I devoted my full attention to the direct care of this patient for the amount of time indicated below. Time I spent with family or surrogate(s) is included only if the patient was incapable of providing the necessary information or participating in medical decision making. Time devoted to teaching and to any procedures I billed separately is not included. Critical Care Documentation: The patient has the following organ/system impairment(s): anticipated post-op cabg respiratory insufficiency needing vent Time spent providing critical care services: 35 minutes. CHIEF COMPLAINT: Anticipated acute post-op respiratory insufficiency HISTORY OF PRESENT ILLNESS: Nadira Benítez is a 64 year old female, Ht 162.6 cm (5' 4.02") BMI 31.58 kg/m2, with a PMH significant for reflux, cervical vertebral fusion, cardiac dysrhythmia, dysthymic disorder presents s/p CABG. She has been treated recently for PVCs and PACs with BB. Prior to being admitted, she described chest pressure located on the left side of her chest, rated 6/10 when she walks an incline. She is SOB and diaphoretic and has reported significant exertional intolerance over the past 6 months. LHC demonstrated severe distal left circumflex disease and left anterior descending disease with mild diffuse disease of the right coronary artery. Today, she is POD 0 for CABG x 3 VERNON to LAD, svg to diag, svg to circ. PAST MEDICAL HISTORY Diagnosis Date - Anemia, unspecified - Cardiac dysrhythmia, unspecified - Cervical vertebral fusion 2014 - Dysthymic disorder - Esophageal reflux - Generalized osteoarthrosis, unspecified site knees - Lumbago PAST SURGICAL HISTORY Procedure Laterality Date - ANTERIOR INTERBODY FUSION, CERVICAL 2014 - PAST SURGICAL HISTORY OF colon resected - PAST SURGICAL HISTORY OF cyst knee - ROTATOR CUFF REPAIR Right 2015 FAMILY HISTORY Problem Relation Age of Onset - Cancer Father LEUKEMIA AGE 56 - Osteoporosis Mother - Heart Mother CAD,CHF, renal failure - Breast Cancer Sister AGE 46 CA OF BONE - Breast Cancer Maternal Aunt - Breast Cancer Other MATERNAL COUSIN - Diabetes Brother - other (RENAL DIS) Sister DIALYSIS FOR 23 YRS, Social History Tobacco Use - Smoking status: Former Smoker - Smokeless tobacco: Never Used - Tobacco comment: quit at least 10 years ago Substance Use Topics - Alcohol use: Yes Comment: 2 times a year - Drug use: No ALLERGIES: ALLERGIES Allergen Reactions - Bactrim [Sulfametho* Rash CURRENT OUTPATIENT MEDICATIONS: hydrOXYchloroQUINE (PLAQUENIL) 200 mg tablet Take 200 mg by mouth twice daily. methotrexate 2.5 mg tablet Take 8 tablets by mouth once each week. folic acid 1 mg tablet Take 1 tablet by mouth once daily. folic acid 1 mg tablet Take 2 tablets by mouth once daily. celecoxib (CELEBREX) 200 mg capsule Take 200 mg by mouth twice daily. pyridoxine, vitamin B6, (VITAMIN B-6) 100 mg tablet Take 25 mg by mouth once daily. DULoxetine (CYMBALTA) 30 mg capsule Take 30 mg by mouth once daily. gabapentin (NEURONTIN) 600 mg tablet Take 1,200 mg by mouth three times daily. lisinopril (ZESTRIL, PRINIVIL) 10 mg tablet Take 10 mg by mouth twice daily. atorvastatin (LIPITOR) 80 mg tablet Take 80 mg by mouth once daily. pantoprazole DR (PROTONIX) 20 mg tablet Take 20 mg by mouth once daily. zolpidem (AMBIEN) 10 mg tab Take by mouth at bedtime as needed. ALPRAZolam (XANAX) 0.5 mg tablet Take 0.5 mg by mouth three times daily as needed for Anxiety. Cholecalciferol, Vitamin D3, (VITAMIN D) 1,000 unit cap Take 2,000 Units by mouth once daily. cyanocobalamin (B-12 DOTS) 500 mcg tab Take by mouth once daily. magnesium oxide 400 mg cap Take by mouth once daily. oxyCODONE-acetaminophen (PERCOCET) 5-325 mg tablet Take 1 tablet by mouth every 8 hours as needed for Pain. aspirin(ECOTRIN LOW STRENGTH 81 MG TAB) Take one(1) tablet daily. ACEBUTOLOL 400 MG CAP Take one(1) tablet two(2) times daily. calcium carbonate/vitamin d3(CALCIUM 500 WITH VITAMIN D 500 MG (1,250 MG)-200 UNIT TAB) Take one(1) tablet two(2) times daily. aspirin 325 mg tablet Take 325 mg by mouth one time only. Pre cath perflutren lipid microspheres (DEFINITY) 1.1 mg/mL injection (to be provided with echo procedure) Inject 1.3 mL intravenously as directed. Administration Instructions: If no IV access, insert saline lock prior to administering contrast. Discontinue saline lock post exam. If patient has central line or IVAD, may access for administration according to line specific nursing protocol. Once exam is complete, flush line and de-access per line specific nursing protocol. Diluted IV Bolus: Dilute 1.3 ml of Definity with 8.7 ml of preservative-free saline tofacitinib 5 mg tab Take 1 tablet by mouth twice daily. ALENDRONATE SODIUM (FOSAMAX ORAL) Take 70 mg by mouth once each week. ALL PURPOSE MULTIVITAMIN-MIN ORAL TAB Take one(1) tablet daily. REVIEW OF SYSTEMS: Unable to obtain ROS Patient Vitals for the past 24 hrs: BP Temp Temp src Pulse Resp SpO2 Height Weight 12/27/19 1618 ? ? ? 78 14 ? ? ? 12/27/19 1515 ? 36.6 ?C (97.9 ?F) ? 86 15 97 % ? ? 12/27/19 1500 ? 36.5 ?C (97.7 ?F) ? 80 12 100 % ? ? 12/27/19 1445 ? 36.3 ?C (97.3 ?F) ? 82 14 99 % ? ? 12/27/19 1345 ? ? ? 77 11 100 % ? ? 12/27/19 1342 ? ? ? 72 16 100 % ? ? 12/27/19 0732 97/82 36.7 ?C (98.1 ?F) Temporal 71 16 97 % ? ? 12/27/19 0635 ? 162.6 cm (5' 4.02") 83.5 kg (184 lb 1.6 oz) 12/27/19 0545 124/84 36.6 ?C (97.9 ?F) Oral 71 16 95 % ? ? 12/26/19 2307 130/67 36.6 ?C (97.9 ?F) Oral 65 18 99 % ? ? 12/26/191999 131/68 36.5 ?C (97.7 ?F) Oral 67 16 97 % ? ? Intake/Output Summary (Last 24 hours) at 12/27/2019 1637 Last data filed at 12/27/2019 1519 Gross per 24 hour Intake 435 ml Output 310 ml Net 125 ml PHYSICAL EXAMINATION: VITAL SIGNS: BP 97/82 Pulse 78 Temp (Src) 97.9 (Temporal) Resp 14 Ht 5' 4.016" (1.63m) Wt 184 lb 1.6 oz (83.5kg) SpO2 97% LMP 12/16/2004 BMI 31.59 kg/(m2). O2 Therapy: Nasal Cannula, Liters: 4, %FIO2: 50 General appearance: intubated and sedated Skin: skin color, texture, turgor normal, no rashes or lesions Eyes: Anicteric sclera. Pupils are equally round and reactive to light. ENT:: No oral or nasal erythema, bleeding, lesions, striae Heme/Lymph:: Supple, no adenopathy; thyroid symmetric, normal size, no bruits Lungs: lungs clear to auscultation no wheezing or rhonchi Heart: irregular , chest tube in place, incision bandaged and clean and dry GI: Abdomen soft, non-tender. Bowel sounds normal. Musculoskeletal:: No deformities, edema, skin discoloration. Good capillary refill. Neuro: Oriented X 3 DATA: Diagnostic tests reviewed for today's visit, films/specimens were personally reviewed by me: Most recent labs LAB RESULTS: CBC, Coags, BMP, Mg, Phos Recent Labs 12/27/19 1415 12/26/19 0449 12/25/19 2205 12/25/19 0835 WBC 19.13* 8.83 -- 5.82 HB 10.5* 11.9 -- 11.7 HCT 30.4* 32.9* -- 33.7* PLT 110* 176* -- 168* INR 1.29 -- -- -- APTT 30.2 -- -- -- NA 142 139 139 139 K 3.8 3.5* 3.6* 4.3 CHLOR 112* 105 105 104 CO2 24 25 26 26 BUN 7 8 9 8 CREAT 0.51* 0.57* 0.61 0.69 GLUC 120* 97 75 95 CA 7.9* 9.2 9.4 9.4 MG 1.9 -- 2.0 -- Liver Function, Amylase, AND Lipase Recent Labs 12/25/192204 TPROT 6.2* ALB 4.4 ALT 19 AST 21 ALKPHOS 60 TBILI 1.0 Cardiac Enzymes ABGs Recent Labs 12/27/19 1400 12/27/19 1327 12/27/19 1244 12/27/19 1207 PH 7.358 -- -- -- PCO2 41.4 43.4 44.1 41.1 PO2 92.7 349* 231* 264* BE -2.1 -1 -1 -4* HCO3 -- 24.4 24.2 21.8* Taylor Boogie MD Staff, Respiratory [place] [facility] Coronavirus 2019on 0 COVID 19 Result BIOLOGY LABORATORY ASSISTANT Negative Normal CORNEG [facility] Comment on above: Result Comment: Nega tive for COVID19 (SARS CoV2) by PCR. This test was developed and its performance characteristics determined by [facility] [place]. This test has been authorized by FDA under an Emergency Use Authorization (EUA). This test has been validated in accordance with the FDA's Guidance Document Policy for Diagnostics Testing in Laboratories Certified to Perform High Complexity Testing under CLIA prior to Emergency use Authorization for Coronavirus Disease 2019 during the Public Health Emergency" issued on June 09, 2019. Performing Laboratory: Performed By: #### C BC1 #### [place] [id number] Hemogramon 12-27-2019 Erythrocyte distribution width (RBC) [Ratio] 13.7 % Normal 11.7-14.4 [facility] Comment on above: Performed By: #### G LMET #### [place] [id number] Hematocrit (Bld) [Volume fraction] 30.4 % Low 34.1-44.9 [facility] Comment on above: Performed By: #### G LMET #### [place] [address] Hemoglobin (Bld) [Mass/Vol] 10.5 g/dL Low 11.2-15.7 [facility] Comment on above: Performed By: #### G LMET #### [place] [id number] MCH (RBC) [Entitic mass] 30.7 pg Normal 25.6-32.2 [facility] Comment on above: Performed By: #### G LMET #### [place] [id number] MCHC (RBC) [Mass/Vol] 34.5 % Normal 31.6-34.8 [facility] Comment on above: Performed By: #### G LMET #### [place] [address] MCV (RBC) [Entitic vol] 88.9 fL Normal 79.4-94.8 [facility] Comment on above: Performed By: #### G LMET #### [place] [facility] [address] [address] Platelet mean volume (Bld) [Entitic vol] 9.5 fL Normal 9.4-12.3 [facility] Comment on above: Performed By: #### G LMET #### [facility] [address] [address] Platelets (Bld) [#/Vol] 110 thou/cmm Low 182-369 [facility] Comment on above: Performed By: #### G LMET #### [facility] [address] [address] RBC (Bld) [#/Vol] 3.42 mil/cmm Low 3.93-5.22 [facility] Comment on above: Performed By: #### G LMET #### [place] [address] RDW SD 44.1 fl Normal 36.4-46.3 [facility] Comment on above: Performed By: #### G LMET #### [facility] [address] [address] WBC (Bld) [#/Vol] 19.13 thou/cmm High 3.98-10.04 [facility] Comment on above: Performed By: #### G LMET #### [place] [address] Magnesium Bloodon 12-27-2019 Magnesium [Mass/Vol] 1.9 mg/dL Normal 1.7-2.3 [facility] Comment on above: Performed By: #### M AG #### [place] [address] OPERATIVE NOon 12-27-2019 OPERATIVE NO HNO ID: [id number] Author: Eleno Chavez Service: Thoracic Surgery Author Type: Physician Type: Operative Report Filed: 12/27/2019 4:32 PM Note Text: [facility] - Operative Report NADIRA BENÍTEZ : 1955 AGE: 64. SEX: F PATIENT TYPE: [place] [facility] [place] LOCATION: [id number] ATTENDING PHYSICIAN: HUMBERTO TATE CSN NUMBER: [id number] DATE OF SURGERY/PROCEDURE: 12/27/2019 INCISION/PROCEDURE START TIME: 8:56 AM INCISION CLOSE/PROCEDURE END TIME: 1:35 PM PREOPERATIVE DIAGNOSIS: Severe 2-vessel coronary artery disease with unstable angina. POSTOPERATIVE DIAGNOSIS: Severe 2-vessel coronary artery disease with unstable angina with smallish coronaries as expected, thick-walled saphenous vein. SURGEON: Eleno Chavez MD HOME SALES SERVICE PROFESSIONAL: SURGEON: Brian Fontaine MD. ASSISTANTS: 1. The endoscopic vein harvester was ARY Sawyer. 2. Second medical practice assistant was Malvin Amaya SA. SURGERY/PROCEDURE: Coronary artery bypass grafting x3 with a skeletonized VERNON to the anterior descending coronary, saphenous vein graft to diagonal, saphenous vein graft to the distal circumflex; endoscopic vein harvesting, right greater saphenous vein, right lower extremity for use as conduit. ANESTHESIA: General endotracheal. INDICATION AND FINDINGS: This patient underwent evaluation for exertional chest Discomfort/tightness with shortness of breath, which was progressive. She underwent outpatient cardiac catheterization by Dr. Tate and he admitted the patient to the hospital following this as she had slow flow in a subtotally occluded anterior descending. She underwent rapid preop evaluation and preparation, and was brought to surgery today for surgical myocardial revascularization. Findings at the time of surgery showed the patient's anterior descending to be about 1.5 mm vessel. It did not reach quite all the way to the apex. Similarly, the diagonal was 1.5 mm, was slightly smaller. The distal circumflex vessel was probably as well 1.5-1.6 mm. Saphenous vein was of fairly decent quality, but had a thick wall. The VERNON was 1.5 mm vessel, when skeletonized, with good flow. Post pump ventricular function was preserved by KVNG. DESCRIPTION OF PROCEDURE: The patient was brought to the operating room, placed on the operative table in supine position. Intravenous and intra-arterial accesses were obtained. General endotracheal anesthesia was induced. After placement of further appropriate monitors, lines, and tubes, the patient's neck, chest, abdomen, groins, thighs, legs, and feet were prepped and draped in surgical fashion. Heart was exposed through median sternotomy incision while right greater saphenous vein was harvested from right lower extremity endoscopically for conduit. The left internal mammary was taken down from its position behind the left chest wall as a skeletonized graft. Once saphenous vein harvest had proceeded sufficiently, the rest of the heparin was given. The VERNON was triply hemo-clipped distally, divided, prepared for anastomosis, calibrated, and stored in the left pleural space. The pericardium was opened and cradled. The patient underwent standard cannulation for cardiopulmonary bypass for coronary bypass grafting surgery. The method of myocardial protection employed was blood cardioplegia given in antegrade fashion, given down the vein grafts as the distals were completed, and given retrograde via coronary sinus catheter because of the LAD disease and lesion. All distal and proximal anastomoses were constructed during a single cross-clamp episode. Venting was accomplished via the distal ascending aortic cardioplegic venting apparatus. The first graft to be done was the distal circumflex branch. Arteriotomy was made. Segment saphenous vein was sutured to the arteriotomy with running 7-0 Prolene. Next, arteriotomy was made in the diagonal. This was the lateral branch of the bifurcating diagonal. Second segment of saphenous vein was sutured to the arteriotomy with running 7-0 Prolene. Next the skeletonized VERNON was brought through a rent in the pericardium lateral to the thymic fat pad. Arteriotomy was placed in the proximal to mid anterior descending. The skeletonized VERNON was sutured to the arteriotomy with running 7-0 Prolene. The bulldog clip was removed. There was good brisk filling seen distally. Bulldog clip was replaced. The 2 proximal anastomoses were then constructed with a 4.4 mm punch and running 6-0 Prolene suture. As we were completing the second proximal, warm retrograde blood was given via the coronary sinus catheter. Bulldog clip was removed from the RAMY for the last time. The second proximal was completed, tied, and marked. Aortic cross-clamp was removed. The patient was allowed adequate reperfusion and rewarming period. During this time, retrograde coronary sinus catheter was removed, pursestring suture was tied, and reinforced with 4-0 Prolene. Two temporary epicardial right atrial pacing wires were placed. As the patient's heart rate was low, she was atrially paced at a rate of approximately 76, which was successful. After adequate rewarming and reperfusion, the lungs were temporarily ventilated, heart was allowed to eject, and we checked for de-airing via KVNG, which was deemed complete. Cardiac ejections and ventilations were held, the cardioplegic venting apparatus was removed, the Prolene suture was tied, and reinforced with a 6-0 Prolene. We then from cardiopulmonary bypass on low-dose inotropic support. Venous cannula was removed, its pursestring suture secured.. The patient's hemoglobin was 7, hematocrit was 21. Two units of packed blood cells were given during the procedure for this. After obtaining adequate cardiac function with stable hemodynamics, protamine was then administered to reverse the heparin. After completing the protamine dose, the arterial cannula was removed, its pursestring sutures were tied, and reinforced with 4-0 Prolene. After obtaining adequate hemostasis with continuing hemodynamic stability, we then prepared to close. Left pleural space drained with 32-Armenian chest tube, mediastinum drained with a 32 PleuraFlow special mediastinal catheter. Right atrial pursestring was tied. Second tie was placed around the base of right appendage for added security. The sternum was then approximated with multiple stainless steel wires. Remainder of the sternotomy incision was closed in layers with absorbable suture. Dermabond was placed. Chest tubes connected to water-seal suction drainage device. Small endoscopic vein harvest incision in right lower extremity closed as appropriate with absorbable suture. Dermabond was placed. The patient was then transferred to CVICU after correct sponge, needle, and instrument count. Eleno Chavez MD PS:[id number] /[id number] Normal [facility] PROGRESSon 12-27-2019 PROGRESS HNO ID: [id number] Author: Carisa Valdez Service: Critical Care Author Type: Nurse Practitioner Type: Progress Notes Filed: 12/27/2019 4:40 PM Note Text: INPATIENT PROGRESS NOTE * SERVICE DATE: 12/27/2019 SERVICE TIME: 1555 Patient doing well on weaning PSV 5/5 on 40%. NIF -25 and RSBI 51, [id number]. Awake and following commands Plan -Extuabte -Titrate O2 as tolerated Medication and Non-Pharmacologic VTE Prophylaxis/Anticoagulan ts Anticoagulant AND Antiplatelet Medications (From admission, onward) Start Dose Route Frequency Ordered Stop 12/28/19 0900 aspirin 81 mg chewable tab(s) 81 mg ORAL DAILY 12/27/19 1409 -- 12/27/19 1415 vte pharmacologic prophylaxis contraindicated (mi,oh) 12/27/19 1415 pneumatic compression stockings (mi,nv) 12/27/19 1415 graduated compression stockings (mi,nv) 12/27/19 1415 activity - mobilize patient (mi,nv) VTE Prophylaxis: VTE prophylaxis appropriate SIGNATURE: Carisa Valdez [email or web address] PATIENT NAME: Nadira Benítez DATE: December 27, 2019 TIME: 4:17 PM PAGER: [phone] [facility] PROGRESS HNO ID: [id number] Author: Jd Nguyen (Pa) Service: Cardiovascular Surgery Author Type: Physician Offshore Wind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 Type: Progress Notes Filed: 12/27/2019 6:15 PM Note Text: CARDIOTHORACIC SURGERY POSTOP PROGRESS NOTE SERVICE DATE: 12/27/2019 SERVICE TIME: 4:28 PM Subjective S/P SURGERY: Procedure(s) (LRB): BYPASS GRAFT ARTERY CORONARY ON-PUMP THREE CORONARY ARTERIAL GRAFTS (N/A) DATE OF SURGERY: 12/27/2019 POSTOP DAY #0 LOS: 2 CC: Chest pain Patient is being seen today re: CABG POD#0 INTERVAL EVENTS / PERTINENT ROS: Patient seen and examined. Patient has successfully undergone CABG x [address] Chavez. No reported complications. EBL 200 mL. Objective Admission Weight: 85.5 kg (188 lb 6.4 oz) BP 97/82 Pulse 71 Temp 36.7 ?C (98.1 ?F) (Temporal) Resp 16 Ht 162.6 cm (5' 4.02") Wt 83.5 kg (184 lb 1.6 oz) LMP 12/16/2004 SpO2 97% BMI 31.58 kg/m? Body surface area is 1.94 meters squared. Min/Max/Average Temperature AND Blood Pressure: Temp (24hrs), Av.6 ?C (97.9 ?F), Min:36.5 ?C (97.7 ?F), Max:36.7 ?C (98.1 ?F) Systolic (24hrs), Av , Min:97 , Max:131 Diastolic (24hrs), Av, Min:64, Max:84 No intake or output data in the 24 hours ending 12/27/19 1344 TELEMETRY: normal sinus rhythm PHYSICAL EXAM: General Appearance: Patient in bed-extubated. NC 4 L/ minute. NAD. Drips running: Iker/ insulin/ IVF. Skin: Midsternal incision dry AND intact. Edges well approximated. CT dressing C/D/I. SVG site obscured by compression wrapping. Head/Eyes: NCAT, EOMI. NC on. Neck: Supple. RIJ in place with dressing intact. Lungs: CTA B/L. Respiratory effort: normal/ nonlabored. 180 cc of sero < sang output present in atrium. No leak present Heart: RRR. Rub present. Pacing wires present Peripheral Vascular/Arteries: Dorsalis pedis 2+ and radial 2+ Abdomen: soft, non-tender and bowel sounds present Genitourinary: Martinez intact with clear yellow urine out Neurologic/Psychiatric: NFD/ strength intact B/L UE Extremities: no edema. Cool Lines, Drains, and Airways Line Peripheral 12/25/19 2325 Assessment Left Antecubital 20 Gauge 1 day Arterial Line/Sheath 12/27/19 Left Radial less than 1 day Central Line Quadruple Lumen 12/27/19 Non-tunneled Right Neck less than 1 day Peripheral 12/27/19 Assessment Short Right Hand 18 Gauge less than 1 day Drain Chest Tube 12/27/19 Assessment Anterior Mediastinal 32 Fr Tube #1 less than 1 day Chest Tube 12/27/19 Assessment Right Anterior Pleural 32 Fr Tube #2 less than 1 day Indwelling Urinary Catheter 12/27/19 Assessment Temperature Monitoring 16 Fr less than 1 day DATA: Diagnostic tests reviewed for today's visit: CXR: Subsegmental atelectasis at both lung bases. Right IJ line and tubes as noted. Echo 12/10/2019: - The left ventricle is normal in size. Left ventricular systolic function is normal. EF = 62 ? 5% (2D biplane) Grade I left ventricular diastolic dysfunction. - The right ventricle is normal in size. Right ventricular systolic function is normal. - The left atrial cavity is mildly dilated. - There are no significant valvular abnormalities. - The patient has not had a prior CC echocardiographic exam for comparison. Recent Labs 12/26/19 0449 12/25/19 2205 12/25/19 0835 HBA1C -- 5.0 -- RBC 3.75* -- 3.81* WBC 8.83 -- 5.82 HB 11.9 -- 11.7 HCT 32.9* -- 33.7* PLT 176* -- 168* NA 139 139 139 K 3.5* 3.6* 4.3 CHLOR 105 105 104 CO2 25 26 26 BUN 8 9 8 CREAT 0.57* 0.61 0.69 GLUC 97 75 95 CA 9.2 9.4 9.4 MG -- 2.0 -- TPROT -- 6.2* -- TBILI -- 1.0 -- ALKPHOS -- 60 -- ALT -- 19 -- AST -- 21 -- ANION 9 8* 9 Recent Labs 12/27/19 1327 12/27/19 1244 12/27/19 1207 PCO2 43.4 44.1 41.1 PO2 349* 231* 264* BE -1 -1 -4* HCO3 24.4 24.2 21.8* Recent Labs 12/26/19 0449 UPH 6.5 SPGR 1.013 UGLUC NEGATIVE UBILI NEGATIVE UKET NEGATIVE UPROT NEGATIVE Current Facility-Administered Medications: - lactated ringers infusion - albumin (5%) 12.5 g infusion - insulin regular iv infusion 100 units in NaCl 0.9% 100 mL - AK CARD SURG NOMOGRAM - insulin regular human iv bolus 10 Units - dextrose 50% in water 25 mL syringe - albuterol 2.5 mg /3 mL (0.083 %) 2.5 mg (PROVENTIL) - niCARdipine 50 mg in NaCl 0.9% 250 mL (CARDENE) - PHENYLephrine iv infusion 10 mg in NaCl 0.9% 250 mL (IKER-SYNEPHRINE) - [START ON 12/28/2019] aspirin 81 mg chewable tab(s) - [START ON 12/28/2019] pantoprazole 40 mg injection (PROTONIX) - ondansetron (PF) 4 mg injection (ZOFRAN) - potassium chloride iv piggyback 20 mEq/100 mL - magnesium sulfate in sterile water 2 g in sterile water 50 ml - calcium chloride 1 g in D5W 100 mL - midazolam (PF) 2 mg injection (VERSED) - acetaminophen 1,000 mg tab(s) (TYLENOL) - morphine 2-4 mg injection - ceFAZolin iv piggyback 2 g in D5W (iso-osmotic) 100 mL (ANCEF) - atorvastatin 40 mg tab(s) (LIPITOR) - magnesium oxide 400 mg tab(s) (MAG-OX) - gabapentin 200 mg cap(s) (NEURONTIN) - lidocaine 4 % 1 Patch (SALONPAS) AND lidocaine patch - REMOVE AND lidocaine - VERIFY PATCH - traMADol 50-100 mg tab(s) (ULTRAM) - NaCl 0.9% 250 mL iv bolus Assessment/Plan Unstable angina/ CAD -s/p CABG x 3 (VERNON >> LAD, SVG >> DIAG, AVG LCX) -POD#0 -Medical management with ASA 81, atorvastatin 40 -Iker precludes beta chuy -Plavix when HD stable -Pain control per ERAS (Mg/ gabapentin/ lidocaine patch/ ultram/ POD#0-1 PRN morphine) with pain following -IS/ ambulation/ PT/ OT starting POD#1 -Continue with chest tubes to suction, arterial line, central line, martinez -Start bowel regimen POD#1 -Perioperative ABX -Cardiac rehab phase II as O/P Anticipated post operative respiratory insufficiency -Vent management per PCCM Acute blood loss anemia -Hgb down to 10.5 -No indication for transfusion -Monitor Thrombocytopenia -No indication for transfusion -Monitor Leukocytosis -Likely reactive -Cotninue PPX ABX and monitor Fromer tobacco abuse -Quit > 10 years ago -IS -Aerosols PRN Obesity Class I -BMI 31.58 VTE PPX -SCD -Lovenox when OK with Dr. Chavez SIGNATURE: Jd Nguyen PA-C PATIENT NAME: Nadira Benítez DATE: December 27, 2019 TIME: 1:44 PM PAGER/CONTACT #: [id number] ETX [id number] ADDENDUM #[id number] 09/26/2019 Patient describes in the past of taking Percocet in the past. PDMP report unable to validate. Pain to manage acute pain in the future. It is reasonable to offer oxycodone for severe pain PRN for the next 24 hours. Jd Nguyen PA-C [facility] PROGRESS HNO ID: [id number] Author: Soila Cordova Service: Pain Management Author Type: Physician Type: Progress Notes Filed: 12/27/2019 7:48 AM Note Text: Name: NADIRA BENÍTEZ Age: [age] year old PAIN MANAGEMENT: Seronegative rheumatoid arthritis, chronic neck pain, Neuropathy, multivessel coronary artery disease with plan for CABG Pain Description: Patient denied chest pain. Complains of chronic RA pain in her hands, shoulders, neck, hips and knees. Worse with activity Interval HPI: plan for CABG this AM; daughter at bedside 24H Comfort Meds: Tylenol 325-650 mg x 0 Xanax 0.5 mg X 3 Gabapentin 1200 mg x 3 Plaquenil 200 mg twice daily Percocet 5/325 one x 1 Subjective HPI: 64-year-old female with history of hypertension, hyperlipidemia, prior tobacco abuse, strong family history of coronary artery disease, seronegative rheumatoid arthritis, cervical degenerative disc disease, neuropathy, anxiety with insomnia, depression presented 12/24 With exertional angina and dyspnea. Cardiac cath demonstrated multivessel coronary artery disease; she has been referred for consideration for CABG. Patient has chronic multifactorial pain predominantly secondary to seronegative rheumatoid arthritis for the last 10 years. She recently started going to Dr. Hong at [facility] in [place]. Pain regimen includes methotrexate and Plaquenil. She also has chronic pain from cervical degenerative disc disease for which she underwent 2 prior cervical fusions. She has tried medical marijuana but states vaping hurts her chest. Pain regimen includes gabapentin 1200 mg up to 3 times daily for neuropathy bilateral feet of unknown etiology. She previously had been going to Dr. French in [place] for pain management and had been on high-dose opiates including fentanyl patches, Percocet but she has not been to its program for 2 more than 2 years. She had numerous injections which were not effective Patient lives with her son and rphsacch-io-obm and 2 granddaughters. She quit tobacco in her 30s; previous 10-year pack history. She uses alcohol rarely. She denies illicit meds. OARRS Review: 76 prescriptions from 3 prescribers mostly for medical marijuana which she has not used for a month. Most recent prescriptions other than THC: 12/13 Ambien 10 mg #30 9/ Xanax 0.5 mg #90 7/16 gabapentin 600 mg #540 (90ds) Current Facility-Administered Medications Medication Dose Route Frequency Provider Last Rate Last Dose - [MAR Hold due to Transfer] oxyCODONE-acetaminophen 5-325 mg 1 tablet (PERCOCET) 1 tablet ORAL q 4 H PRN Soila K Scantling 1 tablet at 12/26/19 0910 - [MAR Hold due to Transfer] ALPRAZolam 0.5 mg tab(s) (XANAX) 0.5 mg ORAL TID Khaled Meloud Sleik 0.5 mg at 12/26/192027 - [MAR Hold due to Transfer] docusate sodium 100 mg cap(s) (COLACE) 100 mg ORAL BID PRN Soila K Scantling - [MAR Hold due to Transfer] bisacodyl EC 10 mg tab(s) (DULCOLAX) 10 mg ORAL BID PRN Soila K Scantling - [MAR Hold due to Transfer] hydrALAZINE 10 mg injection (APRESOLINE) 10 mg INTRAVENOUS q 6 H PRN Weina (Director Of Women'S Services Smelter Operator) SALOMÓN Enriquez - [MAR Hold due to Transfer] alendronate 70 mg tab(s) (FOSAMAX) 70 mg ORAL q 2 WEEKS Khaled Meloud Sleik - [MAR Hold due to Transfer] aspirin 81 mg chewable tab(s) 81 mg ORAL DAILY Khaled Meloud Sleik 81 mg at 12/27/19 0546 - [MAR Hold due to Transfer] gabapentin 1,200 mg cap(s) (NEURONTIN) 1,200 mg ORAL TID Khaled Meloud Sleik 1,200 mg at 12/27/19 0547 - [MAR Hold due to Transfer] atorvastatin 80 mg tab(s) (LIPITOR) 80 mg ORAL AT BEDTIME Khaled Meloud Sleik 80 mg at 12/26/192026 - [MAR Hold due to Transfer] hydrOXYchloroQUINE 200 mg tab(s) (PLAQUENIL) 200 mg ORAL BID Khaled Meloud Sleik 200 mg at 12/26/192027 - [MAR Hold due to Transfer] metoprolol tartrate (short acting) 25 mg tab(s) (LOPRESSOR) 25 mg ORAL q 12 H Khaled Meloud Sleik 25 mg at 12/27/19 0546 - [MAR Hold due to Transfer] mupirocin 2 % ointment (BACTROBAN) TOPICAL 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) SALOMÓN Enriquez - [MAR Hold due to Transfer] nitroglycerin sublingual 0.4 mg tab(s) (NITROQUICK) 0.4 mg SUBLINGUAL PRN Huber Desirkeyan - [MAR Hold due to Transfer] zolpidem 10 mg tab(s) (AMBIEN) 10 mg ORAL HS PRN Alonso Doty 10 mg at 12/26/19 2305 - [JUN Hold due to Transfer] isosorbide mononitrate ER 30 mg tab(s) (IMDUR) 30 mg ORAL DAILY (6 AM) Alonso Doty 30 mg at 12/27/19 0600 - [JUN Hold due to Transfer] acetaminophen 325-650 mg tab(s) (TYLENOL) 325-650 mg ORAL q 4 H PRN Alonso Doty 650 mg at 12/27/19 0547 - hydrOXYchloroQUINE (PLAQUENIL) 200 mg tablet, Take 200 mg by mouth twice daily., Disp: , Rfl: , 12/24/2019 at 2100 - methotrexate 2.5 mg tablet, Take 8 tablets by mouth once each week., Disp: 96 tablet, Rfl: 1, 12/23/2019 at 0900 - folic acid 1 mg tablet, Take 1 tablet by mouth once daily., Disp: 90 tablet, Rfl: 1, 12/24/2019 at 0800 - folic acid 1 mg tablet, Take 2 tablets by mouth once daily., Disp: 180 tablet, Rfl: 1, 12/24/2019 at 0800 - celecoxib (CELEBREX) 200 mg capsule, Take 200 mg by mouth twice daily., Disp: , Rfl: , 12/24/2019 at 2100 - pyridoxine, vitamin B6, (VITAMIN B-6) 100 mg tablet, Take 25 mg by mouth once daily. , Disp: , Rfl: , 12/24/2019 at 0800 - DULoxetine (CYMBALTA) 30 mg capsule, Take 30 mg by mouth once daily., Disp: , Rfl: , 12/24/2019 at 2100 - gabapentin (NEURONTIN) 600 mg tablet, Take 1,200 mg by mouth three times daily., Disp: , Rfl: , 12/24/2019 at 2100 - lisinopril (ZESTRIL, PRINIVIL) 10 mg tablet, Take 10 mg by mouth twice daily., Disp: , Rfl: , 12/24/2019 at 2100 - atorvastatin (LIPITOR) 80 mg tablet, Take 80 mg by mouth once daily., Disp: , Rfl: , 12/24/2019 at 2100 - pantoprazole DR (PROTONIX) 20 mg tablet, Take 20 mg by mouth once daily., Disp: , Rfl: - zolpidem (AMBIEN) 10 mg tab, Take by mouth at bedtime as needed., Disp: , Rfl: , 12/24/2019 at 2100 - ALPRAZolam (XANAX) 0.5 mg tablet, Take 0.5 mg by mouth three times daily as needed for Anxiety. , Disp: , Rfl: , 12/24/2019 at 2100 - Cholecalciferol, Vitamin D3, (VITAMIN D) 1,000 unit cap, Take 2,000 Units by mouth once daily. , Disp: , Rfl: , 12/24/2019 at 2100 - cyanocobalamin (B-12 DOTS) 500 mcg tab, Take by mouth once daily., Disp: , Rfl: , 12/24/2019 at 0800 - magnesium oxide 400 mg cap, Take by mouth once daily., Disp: , Rfl: , 12/24/2019 at 2100 - oxyCODONE-acetaminophen (PERCOCET) 5-325 mg tablet, Take 1 tablet by mouth every 8 hours as needed for Pain., Disp: , Rfl: 0 - aspirin(ECOTRIN LOW STRENGTH 81 MG TAB), Take one(1) tablet daily., Disp: , Rfl: 0, 12/24/2019 at 0800 - ACEBUTOLOL 400 MG CAP, Take one(1) tablet two(2) times daily., Disp: , Rfl: 0, 12/24/2019 at 2099 - calcium carbonate/vitamin d3(CALCIUM 500 WITH VITAMIN D 500 MG (1,250 MG)-200 UNIT TAB), Take one(1) tablet two(2) times daily., Disp: , Rfl: 0, 12/23/2019 at 2100 - aspirin 325 mg tablet, Take 325 mg by mouth one time only. Pre cath, Disp: , Rfl: - perflutren lipid microspheres (DEFINITY) 1.1 mg/mL injection (to be provided with echo procedure), Inject 1.3 mL intravenously as directed. Administration Instructions: If no IV access, insert saline lock prior to administering contrast. Discontinue saline lock post exam. If patient has central line or IVAD, may access for administration according to line specific nursing protocol. Once exam is complete, flush line and de-access per line specific nursing protocol. Diluted IV Bolus: Dilute 1.3 ml of Definity with 8.7 ml of preservative-free saline, Disp: 1.3 mL, Rfl: 0 - tofacitinib 5 mg tab, Take 1 tablet by mouth twice daily. (Patient not taking: Reported on 12/03/2019), Disp: 60 tablet, Rfl: 0 - ALENDRONATE SODIUM (FOSAMAX ORAL), Take 70 mg by mouth once each week., Disp: , Rfl: - ALL PURPOSE MULTIVITAMIN-MIN ORAL TAB, Take one(1) tablet daily., Disp: , Rfl: 0 Social History Tobacco Use - Smoking status: Former Smoker - Smokeless tobacco: Never Used - Tobacco comment: quit at least 10 years ago Substance Use Topics - Alcohol use: Yes Comment: 2 times a year - Drug use: No FAMILY HISTORY Problem Relation Age of Onset - Cancer Father LEUKEMIA AGE 56 - Osteoporosis Mother - Heart Mother CAD,CHF, renal failure - Breast Cancer Sister AGE 46 CA OF BONE - Breast Cancer Maternal Aunt - Breast Cancer Other MATERNAL COUSIN - Diabetes Brother - other (RENAL DIS) Sister DIALYSIS FOR 23 YRS, PAST SURGICAL HISTORY Procedure Laterality Date - ANTERIOR INTERBODY FUSION, CERVICAL 2015 - PAST SURGICAL HISTORY OF colon resected - PAST SURGICAL HISTORY OF cyst knee - ROTATOR CUFF REPAIR Right 2015 ROS: All of the following reviewed and negative except as noted below: see HPI GENERAL: no fever, chills, sweats, weight loss, fatigue, generalized weakness HEENT: no headache, vision changes, eye discomfort, hearing change, ear discomfort, sinus pain, nasal discharge or congestion, oral lesions, soreness, dental problem NECK: no adenopathy, discomfort, change in ROM CHEST: no shortness of breath, dyspnea on exertion, wheezing, cough, sputum production or chest pain HEART: no chest pain, palpitations, syncope ABDOMEN: no nausea, vomiting, constipation, diarrhea, abdominal pain : no dysuria, urgency, frequency, history of stones, incontinence NEURO: no confusion or alteration in consciousness, slurred speech, seizure, focal weakness EXTREMITIES: no new pain, edema, change in ROM HEME: no new adenopathy, bruises, petechiae PSYCH: no depression, anxiety, agitation PAIN PSYCHIATRIC EXAM: GENERAL: alert, oriented to person, place, time JUDGMENT AND INSIGHT: intact APPEARANCE: neatly groomed DEMEANOR: coooperative, not hostile, mistrustful, preoccupied, or demanding ACTIVITY: normal, not hyperactive or hypoactive, no tremors, tics EYE CONTACT: normal SPEECH: normal, rate, volume, articulation, coherence, spontaneity MOOD: normal, without overt sadness, grief, anxiety, appropriate to situation IDEATION: deferred MEMORY: intact PHYSICAL EXAMINATION: GENERAL: well nourished and developed; no acute distress; alert and oriented x 3; intact judgement and insight HEENT: no evidence of trauma; cranial nerves intact; eyes clear EOMI; no hearing deficits apparent; nasal passages unremarkable; throat and mucous membranes clear NECK: supple without lymphadenopathy; no JVD; no thyromegaly CHEST: clear bilaterally to auscultation; normal chest movement; no rales or rhonchi HEART: regular rate and rhythm, normal S1 and S2, no murmurs, clicks, rubs, or gallops ABDOMEN: soft; nondistended; bowel sounds present; no hepatomegaly; no splenomegaly; no tenderness EXTREMITIES: no evidence of clubbing; no cyanosis; no joint effusion; no edema +chronic RA changes feet>hands NEURO: cranial nerves intact; no focal deficits; no confusion; no tremor; sensorium normal SKIN: no rash; no skin breakdown; no decubitus lesions HEME: no bruising; no adenopathy PSYCH: no evidence of depression; no anxiety; no agitation; no apparent hallucinations BP 97/82 Pulse 71 Temp 36.7 ?C (98.1 ?F) (Temporal) Resp 16 Ht 162.6 cm (5' 4.02") Wt 83.5 kg (184 lb 1.6 oz) LMP 12/16/2004 SpO2 97% BMI 31.58 kg/m? BMI 31.58 kg/(m2) ABNORMAL/NEW FINDINGS: NONE RADIOLOGY/DIAGNOSTICS: LABORATORY: CBC: No results for input(s): WBC, RBC, HB, HCT, PLT, MCV, MCH, MPV, RDW in the last 24 hours. CMP: No results for input(s): NA, K, CHLOR, CO2, BUN, CREAT, GLUC, TPROT, CA, MG, ALBUMIN, TBILI, ALKPHOS, ALT, AST, ANION in the last 24 hours. Heme: No results for input(s): RETICP, ABSRETIC, LD, KELLY, FE, TIBC, TRANSFERSAT in the last 24 hours. ASSESSMENT ACTIVE PROBLEM LIST Cardiac Dysrhythmia, Unspecified Dysthymic Disorder Anemia, Unspecified Generalized Osteoarthrosis, Unspecified Site Lumbago Sprain of Foot, Unspecified Site Seronegative Rheumatoid Arthritis (Hcc) Angina of Effort (Hcc) Cad (Coronary Artery Disease) PLAN: Plan for CABG this AM Opiate naive prior to admission. A few years ago had been prescribed daily opiates for chronic multifactorial pain including RA Tylenol 325-650 mg every 6 hours PRN Xanax 0.5mg po tid Gabapentin 1200 mg 3 times daily although patient states she does not always take 3 doses daily Plaquenil 200 mg twice daily Percocet 5/325 1 tab every 4 hours PRN Reevaluate postop for short term IV analgesia Colace twice daily as needed, Dulcolax as needed Anticipate short course opiates postop pain Soila Cordova MD Normal [facility] PT EDon 12-27-2019 PT ED HNO ID: [id number] Author: Jessica (Rn) SALVATORE Chaves Service: ? Author Type: Registered Nurse Type: Patient Education Filed: 12/27/2019 7:35 AM Note Text: PRE OP LEARNING ASSESSMENT PROCEDURE/SURGERY: {PROC/SURGERY: READINESS TO LEARN COGNITIVE ABILITY: Alert and oriented MOTIVATION TO LEARN: Eager Interested FAMILY SUPPORT: High - Very involved in pt care PATIENT LEARNS BEST BY: Written Instruction - Hand-outs Verbal Instruction Demonstration FACTORS AFFECTING LEARNING: None PHYSICAL LIMITATIONS AFFECTING LEARNING: None Electronically Signed By: Jessica Chaves RN In Department: [place] SURGERY OR {Select a patient education template: Normal [facility] Protimeon 12-27-2019 INR Coag (PPP) [Relative time] 1.29 {INR} Normal 0.90-1.30 [facility] Comment on above: Result Comment: Marilee min K Antagonist (VKA) Therapeutic Range: INR 2 to 3 (Target INR of 2.5) Note: For patients treated with VKA drugs, such as warfarin, the [employer] [place] [employer] 2012 Guideline recommends a therapeutic INR range of 2 to 3 (target INR of 2.5). This recommendation includes high-risk patients with antiphospholipid syndrome with previous arterial or venous thromboembolism, current-generation mechanical or bioprosthetic aortic heart valve replacement. Note: Patients with mechanical aortic valve replacement and additional risk factors for thromboembolic events (atrial fibrillation, previous thromboembolism, LV dysfunction, hypercoagulable conditions) or an older generation mechanical AVR (i.e., ball in-Cage) or any mechanical MVR should have a INR therapeutic range of 2.5 to 3.5 target INR of 3). Willis GH, et al. Chest 2012; 141:7S-47S Brandan RA et al. [facility] 2017; 70: 252-289 Performed By: #### H A1C #### [place] [id number] PT Coag (PPP) [Time] 13.3 s High 9.7-13.0 [facility] Comment on above: Performed By: #### H A1C #### [place] [address] Staph aureus PCRon 0 MRSA PCR SEE BELOW Normal [facility] Comment on above: Result Comment: Nega tive for MRSA by PCR. Performed By: #### C BC1 #### [place] [address] S aureus Spec Source NASAL Normal [facility] Comment on above: Performed By: #### C BC1 #### [place] [address] Staph aureus PCR SEE BELOW Normal [facility] Comment on above: Result Comment: Nega tive for Staphylococcus aureus by PCR. Performing Laboratory: [facility] [address] [place] [address] Performed By: #### C BC1 #### [place] [id number] XR CHEST 1V FRONTALon 2019 XR CHEST 1V FRONTAL Final Report DATE OF EXAM: Dec 27 2019 2:42PM AKX [id number] - XR CHEST 1V FRONTAL / PROCEDURE REASON: Evaluate tube, line or lead position Physician Interpretation EXAMINATION: CHEST RADIOGRAPH (SINGLE VIEW AP OR PA) CLINICAL HISTORY: Evaluate tube, line or lead position MQ: XC1_5 Comparison: 915.1 RESULT: Lines, tubes, and devices: Tip of the endotracheal tube is 3.6 cm proximal to kamilah, satisfactory. Mediastinal drain is present. Tip and sidehole of the orogastric tube below the diaphragm the expected position of the stomach. Right IJ central line is in place with the tip at the expected position of the cavoatrial junction. Left-sided thoracostomy tube is present with the tip at the lower left hemithorax. Cardiac monitoring leads course over both hemithoraces. Lungs and pleura: Subsegmental atelectasis at both lung bases. No confluent airspace consolidation or pulmonary edema. No sizable effusion. No visible pneumothorax. Cardiomediastinal silhouette: Heart size is normal. Sternal wires are present. Mediastinal surgical clips. Other: Degenerative changes of both shoulders. IMPRESSION: 1. Subsegmental atelectasis at both lung bases. 2. Right IJ line and tubes as noted. Molder Sweep: [facility] Transcribe Date/Time: Dec 27 2019 2:49P Dictated by : LYLE COOMBS MD This examination was interpreted and the report reviewed and electronically signed by: LYLE COOMBS MD on Dec 27 2019 2:51PM EST [facility] ALLIED HEALTHon 12-26-2019 ALLIED HEALTH HNO ID: [id number] Author: Shonda EspinozaEx Phys) Gabriel Service: Cardiac Rehab Author Type: Fac Engineer Type: Allied Health Filed: 12/26/2019 10:14 AM Note Text: CARDIAC REHAB 5 METER WALK TEST SERVICE DATE: 12/26/2019 SERVICE TIME: 940 ASSESSMENT: 5 Meter Walk Test 5 Meter Walk Test Completed: Yes Trial 1 # of Seconds: 7.51 Trial 1 Assistive Device: None Trial 2 # of Seconds: 6.82 Trial 2 Assistive Device: None Trial 3 # of Seconds: 6.26 Trial 3 Assistive Device: None SIGNATURE: Shonda Rios Ex Phys PATIENT NAME: Nadira Benítez DATE: December 26, 2019 TIME: 10:13 AM PAGER/CONTACT #: [phone] [facility] ALLIED HEALTH HNO ID: [id number] Author: Irena EspinozaWorld DesignerZach Wren RRT Service: Respiratory Therapy Author Type: Registered Resp Therapist Type: Allied Health Filed: 12/26/2019 9:22 AM Note Text: Summary: Bedside PFT Printer not operating results below: FVC 3.38 107% FEV1 2.68 111% %FEV1 0.79 103% PEF 346 75% 25-75% 2.77 120% Normal [facility] Basic Metabolic Panelon 09- Anion gap [Moles/Vol] 9 mmol/L Normal 9-18 [facility] Comment on above: Performed By: #### M AG #### [facility] [address] [place], [place] [address] Calcium [Mass/Vol] 9.2 mg/dL Normal 8.5-10.2 [facility] Comment on above: Performed By: #### M AG #### [facility] [address] [place], [place] [address] Chloride [Moles/Vol] 105 mmol/L Normal 97-105 [facility] Comment on above: Performed By: #### M AG #### [facility] [address] [place], [place] [address] CO2 Blood 25 mmol/L Normal 22-30 [facility] Comment on above: Performed By: #### M AG #### [facility] [address] [place], [place] [address] Creatinine [Mass/Vol] 0.57 mg/dL Low 0.58-0.96 [facility] Comment on above: Performed By: #### M AG #### [facility] [address] [place], [place] [address] Glucose [Mass/Vol] 97 mg/dL Normal 74-99 [facility] Comment on above: Result Comment: The [place] [employer] (ADA) provides guidance for cutoff values for fasting glucose and random glucose. The ADA defines fasting as no caloric intake for at least 8 hours.Fasting plasma glucose results between 100 to 125 mg/dL indicate increased risk for diabetes (prediabetes). Fasting plasma glucose results greater than or equal to 126 mg/dL meet the criteria for diagnosis of diabetes. In the absence of unequivocal hyperglycemia, results should be confirmed by repeat testing. In a patient with classic symptoms of hyperglycemia or hyperglycemic crisis, random plasma glucose results greater than or equal to 200 mg/dL meet the criteria for diagnosis of diabetes. Reference: Standards of Medical Care in Diabetes 2016; [place] [employer]. Diabetes Care. 2016;39(Suppl 1). Performed By: #### M AG #### [facility] [address] [place], [place] [address] Potassium [Moles/Vol] 3.5 mmol/L Low 3.7-5.1 [facility] Comment on above: Performed By: #### M AG #### [facility] [address] [place], [place] [address] Sodium [Moles/Vol] 139 mmol/L Normal 136-144 [facility] Comment on above: Performed By: #### M AG #### [facility] [address] [place], [place] [address] Urea nitrogen [Mass/Vol] 8 mg/dL Normal 7-21 [facility] Comment on above: Performed By: #### M AG #### [facility] [address] [place], [place] [address] CASE MGT INIT ASSon 2019 CASE MGT INIT [facility] HNO ID: [id number] Author: Elba (Rn) SALVATORE Miller Service: Care Management Author Type: Registered Nurse Type: Care Mgt Initial Assessment Filed: 12/26/2019 2:10 PM Note Text: CARE MANAGEMENT: ASSESSMENT AND DISCHARGE PLAN SERVICE DATE: December 26, 2019 SERVICE TIME: 2:05 PM PRIMARY CARE PHYSICIAN: Maria Teresa Goff DO ADMISSION STATUS: Inpatient Needs Prior to Discharge: Facility or Agency Choices;Home Care Order;Pharmacy Bedside Delivery;Discharge Prescriptions MEDICAL: [employer] MEDICARE 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 Last discharge within 30 days: No Advance Directive: Current Advance Directive: None Account Associate Attempted to Assist with AD Completion: No Health LiteracyHow often do you need to have someone help you when you read instructions, pamphlets, or other written material from your doctor or pharmacy? : 1 - Never How confident are you filling out medical forms by yourself?: 1 - Extremely If Patient scores > 3 on either question, the following interventions were put into place:: Patient did not score > 3 on either question. Baseline Mental Status Prior to this Illness what was the patient's Baseline Mental Status?: Alert AND Oriented Prior to this illness, has anyone described the patient having any of the following behaviors?: Not Applicable Relationship of the informant to the patient:: Self Functional Status: Independent Does Patient Currently Receive Any Community Services or Home Care?: None Equipment Prior to Admission: None SOCIAL: Living Arrangements: Home Lives With: Son(and dtr-in-law and 2 grandkids) Financial Resources: DisabledPrimary Contact: Extended Emergency Contact Information Primary Emergency Contact: Rickey Benítez Address: [address] [place] [id number] Relation: Son Secondary Emergency Contact: Robyn Benítez Mobile Relation: Daughter Supportive Patient Contact:: Yes Contact Resources: Family Family Name/Phone: Robyn (dtr) [phone] Social Needs Food insecurity Worry: Never true Inability: Never true Resources Needed: No Social Needs Financial resource strain: Not hard at all Social Needs Transportation needs Medical: No Non-medical: No Caregiver AssessmentCaregiver is ready, willing and able to meet the patient's needs as recommended by the inter-professional team:: No Caregiver needed Does the patient have an acute stroke diagnosis, or has the patient had a stroke during this admission?: No Patient's transition needs and plan for meeting these needs: Home with HC Patient's perception of need for this admission: Needs surgery Medication Adherance I am convinced of the importance of my prescription medication: 0 - Agree Completely I worry that my prescription medication will do more harm than good to me : 0 - Disagree Mostly I feel financially burdened by my [id number] expenses for my prescription medication:: 0 - Disagree Mostly Risk Score: 0 Patient is categorized as: Low risk < 2 Are you interested in bedside delivery of your medications? Yes Is Patient Psychosocially Complex?: No ASSESSMENT AND PLAN: Medical Needs: Medical Needs: Two or more chronic diseases Psychosocial Needs: Psychosocial Needs: None FREEDOM OF CHOICE EXPLAINED: [place] of Choice Given: Yes Level of Care Discussed: Home Care Financial Disclosure Provided: Yes Provider List: Home Care Provider list within the patient's requested geographic area shared with the patient/family: Yes within: 10 miles of zip code: [address] Quality and resource use metrics shared with the patient that are relevant to the patient's goals of care and treatment preferences:: Yes Metrics: Skin Integrity;Functional Status POTENTIAL TRANSITION PLANS Home;Home Care From home. Lives with son and dtr-in-law and 2 grandkids in in-law suite downstairs. 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 No DME's. (+) PCP. (+) Rx. Fills scripts at [facility] in [place]. Likely CABG on . 12/26. Plans to return home after discharge as son works from home and is able to be with her. Referral to [facility] who have accepted for homecare. SIGNATURE: Elba Miller RN PATIENT NAME: Nadira Benítez DATE: December 26, 2019 TIME: 2:05 PM PAGER/CONTACT #: [phone] [facility] Fabienne 12-26-2019 CNPN Telephone (AKPRAD) -------- NADIRA BENÍTEZ ([id number]) 1955 F Date Time Provider Department 12/26/19 YULISSA ENRIQUEZ (ROPE TWISTING MACHINE OPERATOR, DEVELOPMENT AND HOUSING DIRECTOR) AKBH[facility]AR During your visit today, we recorded the following information about you: Allergies As of Date: 12/26/2019 Noted Allergy Reaction BACTRIM (SULFAMETHOXAZOLE-TRIMET H*12/15/2004 2 - Rash Date Reviewed: 12/26/2019 Reviewed by: Any (Salvatore) SALVATORE Paz - Fully Assessed 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: 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 Follow Up [0668] Primary Visit Diagnosis:Carotid stenosis, right [I65.21] Order(s):US CAROTID BILAT [7270215] Order #: [id number] FUTURE CONSULT TO VASCULAR SURGERY [9094] Order #: [id number]: 1 FUTURE Prescriptions as of 12/26/2019 Sig: ASPIRIN 325 MG TABLET Take 325 mg by mouth one time* HYDROXYCHLOROQUINE 200 MG TAB* Take 200 mg by mouth twice da* PERFLUTREN LIPID MICROSPHERES* Inject 1.3 mL intravenously a* METHOTREXATE SODIUM 2.5 MG TA* Take 8 tablets by mouth once * FOLIC ACID 1 MG TABLET Take 1 tablet by mouth once d* FOLIC ACID 1 MG TABLET Take 2 tablets by mouth once * TOFACITINIB 5 MG TABLET Take 1 tablet by mouth twice * Patient not taking: Reported on 12/03/2019 CELECOXIB 200 MG CAPSULE Take 200 mg by mouth twice da* PYRIDOXINE (VITAMIN B6) 100 M* Take 25 mg by mouth once mickey* DULOXETINE 30 MG CAPSULE,FANY* Take 30 mg by mouth once mickey* GABAPENTIN 600 MG TABLET Take 1,200 mg by mouth three * FOSAMAX ORAL Take 70 mg by mouth once each* LISINOPRIL 10 MG TABLET Take 10 mg by mouth twice henna* ATORVASTATIN 80 MG TABLET Take 80 mg by mouth once mickey* PANTOPRAZOLE 20 MG TABLET,DEL* Take 20 mg by mouth once mickey* ZOLPIDEM 10 MG TABLET Take by mouth at bedtime as * ALPRAZOLAM 0.5 MG TABLET Take 0.5 mg by mouth three ti* CHOLECALCIFEROL (VITAMIN D3) * Take 2,000 Units by mouth onc* CYANOCOBALAMIN (VIT B-12) 500* Take by mouth once daily. MAGNESIUM 400 MG ( MAGNESIU* Take by mouth once daily. OXYCODONE-ACETAMINOPHEN 5 MG-* Take 1 tablet by mouth every * * ECOTRIN LOW STRENGTH 81 MG TA* Take one(1) tablet daily. * ACEBUTOLOL 400 MG CAPSULE Take one(1) tablet two(2) renny* * CALCIUM 500 WITH VITAMIN D2 5* Take one(1) tablet two(2) renny* * ALL PURPOSE MULTIVITAMIN-MIN * Take one(1) tablet daily. Problem List As Of Date 12/26/2019 Noted Resolved CARDIAC DYSRHYTHMIA NOS [I49.9] DYSTHYMIC DISORDER [F34.1] ANEMIA NOS [D64.9] GENERAL OSTEOARTHROSIS [M15.9] More... LUMBAGO [M54.5] SPRAIN OF FOOT NOS [S93.609A] 08/26/2008 Seronegative rheumatoid arthritis (HCC) [M06.00]08/17/2016 Angina of effort (HCC) [I20.8] 12/03/2019 CAD (coronary artery disease) [I25.10] 12/25/2019 Encounter Status:Closed by YULISSA ENRIQUEZ CNP on 12/26/19 Normal [facility] CONSULTon 12-26-2019 CONSULT HNO ID: [id number] Author: Eleno Chavez Service: Thoracic Surgery Author Type: Physician Type: Consults Filed: 12/26/2019 4:20 PM Note Text: [facility] - Consultation PATIENT NAME: NADIRA BENÍTEZ CSN: [id number] DATE OF : 1955 SEX/AGE: F/64 PATIENT TYPE: I HOSP SVC: CARD LOCATION: [id number] DATE OF SERVICE: 12/26/2019 TIME OF SERVICE: 12:31 PM REFERRING PHYSICIAN: HUMBERTO TATE REQUESTED PHYSICIAN: Kanu Walter MD. CONSULTING PHYSICIAN: Eleno Chavez MD. INDICATIONS AND FINDINGS: This patient was undergoing evaluation for some chest discomfort, pressure in nature, with some radiation towards the shoulder and arm with shortness of breath with exertion such as walking up an incline. Ultimately, she underwent cardiac catheterization, having had multiple risk factors and strong family history. This was carried out as an outpatient yesterday by Dr. Tate. This shows high-grade stenosis with calcification in the proximal LAD, which filled somewhat slowly. The patient has a small to medium, diffusely diseased, diagonal branch, high-grade stenosis in the AV groove branch subserving a distal circumflex, which is nearly codominant in appearance. The right coronary artery has some mild plaque disease, but no high-grade stenosis was identified. Ejection fraction was felt to be 60% with a PVC during the LV gram. The patient was admitted following the cardiac catheterization and we were asked to evaluate her for coronary artery bypass grafting surgery. 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 FAMILY HISTORY: As noted above is positive for breast cancer, heart disease in early age in first-degree relatives. PAST MEDICAL HISTORY: Remarkable for a history of both rheumatoid arthritis, though the rheumatoid factor is negative, but she is treated with Plaquenil and methotrexate as well as osteoarthritis and for that she has undergone left knee replacement with a good result a number of years ago. She also has a history of obesity. History of previous cigarette smoking. History of generalized anxiety disorder. History of depression, history of chronic pain with multiple cervical operations, gastroesophageal reflux, which has flared again recently. Remote history of anemia. She does not feel she has anemia at this time. She denies previous history of diabetes mellitus, liver disease, kidney disease, previous myocardial infarction, stroke, or congestive heart failure. PAST SURGICAL HISTORY: Fairly extensive, including a tonsillectomy and adenoidectomy at a younger age. She had anterior cervical fusion procedure in approximately 2014, later had a posterior approach as the anterior repair "broke down." She had previous segmental colon resection for diverticulitis or diverticular disease. The ovaries were also taken at that time because they "looked precancerous." Still has her uterus and tubes. She had a left total knee replacement. She had right rotator cuff repair approximately 2014. SOCIAL HISTORY: The patient has the above noted cigarette smoking history. Very limited alcohol intake, 1 or 2 drinks per month. REVIEW OF SYSTEMS: Negative for any current abdominal complaints. No blood in the stools. No blood in the urine. She has above-noted chronic musculoskeletal problems related to 2 forms of arthritis and at least 2 cervical spine operations. She has had some pain changes in her feet. Apparently that has responded to Plaquenil treatment. No recent amaurosis fugax, lateralizing transient ischemic attacks, or history of strokes. No history of congestive heart failure. As noted above, she is not aware of any current active anemia. She has above-noted gastroesophageal reflux symptoms, which had flared recently. PHYSICAL EXAMINATION: GENERAL: Reveals a well-developed, well-nourished, obese female, in no acute distress. She is alert and oriented x3. She did place on a face mask when Asked. HEENT: Remarkable for the face mask. Pupils are reactive. External canals grossly clear. Examination of the neck showed perhaps a soft bruit versus a soft radiated cardiac murmur on the right side. No bruit on the left side. Carotid pulses palpable bilaterally. LUNGS: Very clear to auscultation anteriorly and posteriorly. There is no wheezing, rhonchi, or rales. CARDIAC: Remarkable for soft grade 1-2 systolic murmur heard at the base on the right. UPPER EXTREMITY: Shows the radial pulse is palpable bilaterally. No clubbing, cyanosis, or edema. ABDOMEN: Obese, soft. Bowel sounds noted. LOWER EXTREMITY: Shows some scar consistent with previous surgery. She has clearly palpable posterior tibial pulses bilaterally. She appears to have adequate saphenous vein. There is no history of saphenous vein stripping. NEUROLOGIC: Grossly intact by inspection only. IMAGING STUDIES: As noted above. Cardiac cath films have been reviewed. The patient has been seen in initial consultation for consideration for coronary artery bypass grafting surgery during the current admission. Workup and evaluation are in progress. PLAN AND RECOMMENDATIONS: The begging process for an OR began late yesterday and is still not available. Workup and evaluation are ongoing. The patient is very familiar with bypass grafting surgery from multiple family members undergoing it. Eleno Chavez MD Cardiothoracic Surgery PS:desiree /[id number] [facility] CONSULT HNO ID: [id number] Author: Soila Cordova Service: Pain Management Author Type: Physician Type: Consults Filed: 12/26/2019 9:58 AM Note Text: Name: NADIRA BENÍTEZ Age: [age] year old PAIN MANAGEMENT: Seronegative rheumatoid arthritis, chronic neck pain, Neuropathy, multivessel coronary artery disease with plan for CABG Pain Description: Patient denied chest pain. Complains of chronic RA pain in her hands, shoulders, neck, hips and knees. Worse with activity Interval HPI: 24H Comfort Meds: Tylenol 3 25-650 mg every 4 hours PRN 650 mg x 1 's Xanax 0.5 mg at bedtime as needed x1 Gabapentin 1200 mg 3 times daily x1 Plaquenil 200 mg twice daily Subjective HPI: 64-year-old female with history of hypertension, hyperlipidemia, prior tobacco abuse, strong family history of coronary artery disease, seronegative rheumatoid arthritis, cervical degenerative disc disease, neuropathy, anxiety with insomnia, depression presented 12/24 With exertional angina and dyspnea. Cardiac cath demonstrated multivessel coronary artery disease; she has been referred for consideration for CABG. Patient has chronic multifactorial pain predominantly secondary to seronegative rheumatoid arthritis for the last 10 years. She recently started going to Dr. Hong at [facility] in [place]. Pain regimen includes methotrexate and Plaquenil. She also has chronic pain from cervical degenerative disc disease for which she underwent 2 prior cervical fusions. She has tried medical marijuana but states vaping hurts her chest. Pain regimen includes gabapentin 1200 mg up to 3 times daily for neuropathy bilateral feet of unknown etiology. She previously had been going to Dr. French in [place] for pain management and had been on high-dose opiates including fentanyl patches, Percocet but she has not been to its program for 2 more than 2 years. She had numerous injections which were not effective Patient lives with her son and [id number] and 2 granddaughters. She quit tobacco in her 30s; previous 10-year pack history. She uses alcohol rarely. She denies illicit meds. OARRS Review: 76 prescriptions from 3 prescribers mostly for medical marijuana which she has not used for a month. Most recent prescriptions other than THC: 12/13 Ambien 10 mg #30 12/13 Xanax 0.5 mg #90 10/24 gabapentin 600 mg #540 (90ds) Current Facility-Administered Medications Medication Dose Route Frequency Provider Last Rate Last Dose - oxyCODONE-acetaminophen 5-325 mg 1 tablet (PERCOCET) 1 tablet ORAL q 4 H PRN Soila Vogt Scantling 1 tablet at 12/26/19 09 - ALPRAZolam 0.5 mg tab(s) (XANAX) 0.5 mg ORAL TID Khaled Meloud Sleik 0.5 mg at 12/26/19 09 - [START ON 01/07/2020] alendronate 70 mg tab(s) (FOSAMAX) 70 mg ORAL q 2 WEEKS Khaled Meloud Sleik - aspirin 81 mg chewable tab(s) 81 mg ORAL DAILY Khaled Meloud Sleik 81 mg at 12/26/19 09 - gabapentin 1,200 mg cap(s) (NEURONTIN) 1,200 mg ORAL TID Khaled Meloud Sleik 1,200 mg at 12/26/19909 - atorvastatin 80 mg tab(s) (LIPITOR) 80 mg ORAL AT BEDTIME Khaled Meloud Sleik 80 mg at 12/25/192141 - lisinopril 10 mg tab(s) (ZESTRIL, PRINIVIL) 10 mg ORAL BID Khaled Meloud Sleik 10 mg at 12/26/19 0916 - hydrOXYchloroQUINE 200 mg tab(s) (PLAQUENIL) 200 mg ORAL BID Khaled Meloud Sleik 200 mg at 12/26/19 0910 - metoprolol tartrate (short acting) 25 mg tab(s) (LOPRESSOR) 25 mg ORAL q 12 H Khaled Meloud Sleik 25 mg at 12/26/19 0916 - mupirocin 2 % ointment (BACTROBAN) TOPICAL 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) SALOMÓN Enriquez - nitroglycerin sublingual 0.4 mg tab(s) (NITROQUICK) 0.4 mg SUBLINGUAL PRN Huber Artis - zolpidem 10 mg tab(s) (AMBIEN) 10 mg ORAL HS PRN Alonso Doty 10 mg at 12/25/19 2306 - isosorbide mononitrate ER 30 mg tab(s) (IMDUR) 30 mg ORAL DAILY (6 AM) Alonso Doty 30 mg at 12/26/19 0614 - acetaminophen 325-650 mg tab(s) (TYLENOL) 325-650 mg ORAL q 4 H PRN Alonso Doty 650 mg at 12/25/19 2306 - hydrOXYchloroQUINE (PLAQUENIL) 200 mg tablet, Take 200 mg by mouth twice daily., Disp: , Rfl: , 12/24/2019 at 2100 - methotrexate 2.5 mg tablet, Take 8 tablets by mouth once each week., Disp: 96 tablet, Rfl: 1, 12/23/2019 at 0900 - folic acid 1 mg tablet, Take 1 tablet by mouth once daily., Disp: 90 tablet, Rfl: 1, 12/24/2019 at 0800 - folic acid 1 mg tablet, Take 2 tablets by mouth once daily., Disp: 180 tablet, Rfl: 1, 12/24/2019 at 0800 - celecoxib (CELEBREX) 200 mg capsule, Take 200 mg by mouth twice daily., Disp: , Rfl: , 12/24/2019 at 2100 - pyridoxine, vitamin B6, (VITAMIN B-6) 100 mg tablet, Take 25 mg by mouth once daily. , Disp: , Rfl: , 12/24/2019 at 0800 - DULoxetine (CYMBALTA) 30 mg capsule, Take 30 mg by mouth once daily., Disp: , Rfl: , 12/24/2019 at 2100 - gabapentin (NEURONTIN) 600 mg tablet, Take 1,200 mg by mouth three times daily., Disp: , Rfl: , 12/24/2019 at 2100 - lisinopril (ZESTRIL, PRINIVIL) 10 mg tablet, Take 10 mg by mouth twice daily., Disp: , Rfl: , 12/24/2019 at 2100 - atorvastatin (LIPITOR) 80 mg tablet, Take 80 mg by mouth once daily., Disp: , Rfl: , 12/24/2019 at 2100 - pantoprazole DR (PROTONIX) 20 mg tablet, Take 20 mg by mouth once daily., Disp: , Rfl: - zolpidem (AMBIEN) 10 mg tab, Take by mouth at bedtime as needed., Disp: , Rfl: , 12/24/2019 at 2100 - ALPRAZolam (XANAX) 0.5 mg tablet, Take 0.5 mg by mouth three times daily as needed for Anxiety. , Disp: , Rfl: , 12/24/2019 at 2100 - Cholecalciferol, Vitamin D3, (VITAMIN D) 1,000 unit cap, Take 2,000 Units by mouth once daily. , Disp: , Rfl: , 12/24/2019 at 2100 - cyanocobalamin (B-12 DOTS) 500 mcg tab, Take by mouth once daily., Disp: , Rfl: , 12/24/2019 at 0800 - magnesium oxide 400 mg cap, Take by mouth once daily., Disp: , Rfl: , 12/24/2019 at 2100 - oxyCODONE-acetaminophen (PERCOCET) 5-325 mg tablet, Take 1 tablet by mouth every 8 hours as needed for Pain., Disp: , Rfl: 0 - aspirin(ECOTRIN LOW STRENGTH 81 MG TAB), Take one(1) tablet daily., Disp: , Rfl: 0, 12/24/2019 at 0800 - ACEBUTOLOL 400 MG CAP, Take one(1) tablet two(2) times daily., Disp: , Rfl: 0, 12/24/2019 at 2100 - calcium carbonate/vitamin d3(CALCIUM 500 WITH VITAMIN D 500 MG (1,250 MG)-200 UNIT TAB), Take one(1) tablet two(2) times daily., Disp: , Rfl: 0, 12/23/2019 at 2100 - aspirin 325 mg tablet, Take 325 mg by mouth one time only. Pre cath, Disp: , Rfl: - perflutren lipid microspheres (DEFINITY) 1.1 mg/mL injection (to be provided with echo procedure), Inject 1.3 mL intravenously as directed. Administration Instructions: If no IV access, insert saline lock prior to administering contrast. Discontinue saline lock post exam. If patient has central line or IVAD, may access for administration according to line specific nursing protocol. Once exam is complete, flush line and de-access per line specific nursing protocol. Diluted IV Bolus: Dilute 1.3 ml of Definity with 8.7 ml of preservative-free saline, Disp: 1.3 mL, Rfl: 0 - tofacitinib 5 mg tab, Take 1 tablet by mouth twice daily. (Patient not taking: Reported on 12/03/2019), Disp: 60 tablet, Rfl: 0 - ALENDRONATE SODIUM (FOSAMAX ORAL), Take 70 mg by mouth once each week., Disp: , Rfl: - ALL PURPOSE MULTIVITAMIN-MIN ORAL TAB, Take one(1) tablet daily., Disp: , Rfl: 0 Social History Tobacco Use - Smoking status: Former Smoker - Smokeless tobacco: Never Used - Tobacco comment: quit at least 10 years ago Substance Use Topics - Alcohol use: Yes Comment: 2 times a year - Drug use: No FAMILY HISTORY Problem Relation Age of Onset - Breast Cancer Sister AGE 46 CA OF BONE - Osteoporosis Mother - Breast Cancer Maternal Aunt - Breast Cancer Other MATERNAL COUSIN - Cancer Father LEUKEMIA AGE 56 - Heart Mother CAD,CHF, renal failure - Diabetes Brother - other (RENAL DIS [Other]) Sister DIALYSIS FOR 23 YRS, PAST SURGICAL HISTORY Procedure Laterality Date - ANTERIOR INTERBODY FUSION, CERVICAL 2015 - PAST SURGICAL HISTORY OF colon resected - PAST SURGICAL HISTORY OF cyst knee - ROTATOR CUFF REPAIR Right 2015 ROS: All of the following reviewed and negative except as noted below: see HPI GENERAL: no fever, chills, sweats, weight loss, fatigue, generalized weakness HEENT: no headache, vision changes, eye discomfort, hearing change, ear discomfort, sinus pain, nasal discharge or congestion, oral lesions, soreness, dental problem NECK: no adenopathy, discomfort, change in ROM CHEST: no shortness of breath, dyspnea on exertion, wheezing, cough, sputum production or chest pain HEART: no chest pain, palpitations, syncope ABDOMEN: no nausea, vomiting, constipation, diarrhea, abdominal pain : no dysuria, urgency, frequency, history of stones, incontinence NEURO: no confusion or alteration in consciousness, slurred speech, seizure, focal weakness EXTREMITIES: no new pain, edema, change in ROM HEME: no new adenopathy, bruises, petechiae PSYCH: no depression, anxiety, agitation PAIN PSYCHIATRIC EXAM: GENERAL: alert, oriented to person, place, time JUDGMENT AND INSIGHT: intact APPEARANCE: neatly groomed DEMEANOR: coooperative, not hostile, mistrustful, preoccupied, or demanding ACTIVITY: normal, not hyperactive or hypoactive, no tremors, tics EYE CONTACT: normal SPEECH: normal, rate, volume, articulation, coherence, spontaneity MOOD: normal, without overt sadness, grief, anxiety, appropriate to situation IDEATION: deferred MEMORY: intact PHYSICAL EXAMINATION: GENERAL: well nourished and developed; no acute distress; alert and oriented x 3; intact judgement and insight HEENT: no evidence of trauma; cranial nerves intact; eyes clear EOMI; no hearing deficits apparent; nasal passages unremarkable; throat and mucous membranes clear NECK: supple without lymphadenopathy; no JVD; no thyromegaly CHEST: clear bilaterally to auscultation; normal chest movement; no rales or rhonchi HEART: regular rate and rhythm, normal S1 and S2, no murmurs, clicks, rubs, or gallops ABDOMEN: soft; nondistended; bowel sounds present; no hepatomegaly; no splenomegaly; no tenderness EXTREMITIES: no evidence of clubbing; no cyanosis; no joint effusion; no edema +chronic RA changes feet>hands NEURO: cranial nerves intact; no focal deficits; no confusion; no tremor; sensorium normal SKIN: no rash; no skin breakdown; no decubitus lesions HEME: no bruising; no adenopathy PSYCH: no evidence of depression; no anxiety; no agitation; no apparent hallucinations BP 114/72 Pulse 81 Temp 36.7 ?C (98.1 ?F) (Oral) Resp 16 Ht 162.6 cm (5' 4") Wt 85.5 kg (188 lb 6.4 oz) LMP 12/16/2004 SpO2 96% BMI 32.34 kg/m? BMI 32.34 kg/(m2) ABNORMAL/NEW FINDINGS: NONE RADIOLOGY/DIAGNOSTICS: LABORATORY: CBC: Recent Labs 12/26/19448 WBC 8.83 RBC 3.75* HB 11.9 HCT 32.9* PLT 176* MCV 87.7 MCH 31.7 MPV 9.3* RDW 13.4 CMP: Recent Labs 12/26/1944812/25/19 2205 NA 139 139 K 3.5* 3.6* CHLOR 105 105 CO2 25 26 BUN 8 9 CREAT 0.57* 0.61 GLUC 97 75 TPROT -- 6.2* CA 9.2 9.4 MG -- 2.0 TBILI -- 1.0 ALKPHOS -- 60 ALT -- 19 AST -- 21 ANION 9 8* Heme: No results for input(s): RETICP, ABSRETIC, LD, KELLY, FE, TIBC, TRANSFERSAT in the last 24 hours. 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 A few years ago had been prescribed daily opiates Tylenol 3 25-650 mg every 6 hours PRN Continue home regimen Xanax 0.5 mg at bedtime as needed Gabapentin 1200 mg 3 times daily although patient states she does not always take 3 doses daily Plaquenil 200 mg twice daily Allow Percocet 5/325 1 tab every 4 hours PRN. Patient has noted some increase of her chronic neck pain in the last few days Colace twice daily as needed, Dulcolax as needed Await plans for CABG. Will follow with you. Thank you for this consult Soila Cordova MD [facility] HISTORY PHYSICALon 0 HISTORY PHYSICAL HNO ID: [id number] Author: Humberto Tate Service: Interventional Cardiology Author Type: Physician Type: HANDP Filed: 12/26/2019 3:12 PM Note Text: HISTORY AND PHYSICAL EXAMINATION SERVICE DATE: 12/26/2019 SERVICE TIME: 12:00 pm PRIMARY CARE PHYSICIAN: Maria Teresa Goff DO Subjective HPI 64 years old admitted post cardiac cath for CABG Severe LAD and Circumflex disease Exertional shortness of breath and angina of effort Normal LV size and function Await CABG and work up FUNCTIONAL STATUS: Independent PAST MEDICAL HISTORY Diagnosis Date - Anemia, unspecified - Cardiac dysrhythmia, unspecified - Cervical vertebral fusion 2014 - Dysthymic disorder - Esophageal reflux - Generalized osteoarthrosis, unspecified site knees - Lumbago PAST SURGICAL HISTORY Procedure Laterality Date - ANTERIOR INTERBODY FUSION, CERVICAL 2014 - PAST SURGICAL HISTORY OF colon resected - PAST SURGICAL HISTORY OF cyst knee - ROTATOR CUFF REPAIR Right 2015 FAMILY HISTORY Problem Relation Age of Onset - Breast Cancer Sister AGE 46 CA OF BONE - Osteoporosis Mother - Breast Cancer Maternal Aunt - Breast Cancer Other MATERNAL COUSIN - Cancer Father LEUKEMIA AGE 56 - Heart Mother CAD,CHF, renal failure - Diabetes Brother - other (RENAL DIS [Other]) Sister DIALYSIS FOR 23 YRS, Social History Tobacco Use - Smoking status: Former Smoker - Smokeless tobacco: Never Used - Tobacco comment: quit at least 10 years ago Substance Use Topics - Alcohol use: Yes Comment: 2 times a year - Drug use: No - hydrOXYchloroQUINE (PLAQUENIL) 200 mg tablet, Take 200 mg by mouth twice daily., Disp: , Rfl: , 12/24/2019 at 2100 - methotrexate 2.5 mg tablet, Take 8 tablets by mouth once each week., Disp: 96 tablet, Rfl: 1, 12/23/2019 at 0900 - folic acid 1 mg tablet, Take 1 tablet by mouth once daily., Disp: 90 tablet, Rfl: 1, 12/24/2019 at 0800 - folic acid 1 mg tablet, Take 2 tablets by mouth once daily., Disp: 180 tablet, Rfl: 1, 12/24/2019 at 0800 - celecoxib (CELEBREX) 200 mg capsule, Take 200 mg by mouth twice daily., Disp: , Rfl: , 12/24/2019 at 2100 - pyridoxine, vitamin B6, (VITAMIN B-6) 100 mg tablet, Take 25 mg by mouth once daily. , Disp: , Rfl: , 12/24/2019 at 0800 - DULoxetine (CYMBALTA) 30 mg capsule, Take 30 mg by mouth once daily., Disp: , Rfl: , 12/24/2019 at 2100 - gabapentin (NEURONTIN) 600 mg tablet, Take 1,200 mg by mouth three times daily., Disp: , Rfl: , 12/24/2019 at 2100 - lisinopril (ZESTRIL, PRINIVIL) 10 mg tablet, Take 10 mg by mouth twice daily., Disp: , Rfl: , 12/24/2019 at 2100 - atorvastatin (LIPITOR) 80 mg tablet, Take 80 mg by mouth once daily., Disp: , Rfl: , 12/24/2019 at 2100 - pantoprazole DR (PROTONIX) 20 mg tablet, Take 20 mg by mouth once daily., Disp: , Rfl: - zolpidem (AMBIEN) 10 mg tab, Take by mouth at bedtime as needed., Disp: , Rfl: , 12/24/2019 at 2100 - ALPRAZolam (XANAX) 0.5 mg tablet, Take 0.5 mg by mouth three times daily as needed for Anxiety. , Disp: , Rfl: , 12/24/2019 at 2100 - Cholecalciferol, Vitamin D3, (VITAMIN D) 1,000 unit cap, Take 2,000 Units by mouth once daily. , Disp: , Rfl: , 12/24/2019 at 2100 - cyanocobalamin (B-12 DOTS) 500 mcg tab, Take by mouth once daily., Disp: , Rfl: , 12/24/2019 at 0800 - magnesium oxide 400 mg cap, Take by mouth once daily., Disp: , Rfl: , 12/24/2019 at 2100 - oxyCODONE-acetaminophen (PERCOCET) 5-325 mg tablet, Take 1 tablet by mouth every 8 hours as needed for Pain., Disp: , Rfl: 0 - aspirin(ECOTRIN LOW STRENGTH 81 MG TAB), Take one(1) tablet daily., Disp: , Rfl: 0, 12/24/2019 at 0800 - ACEBUTOLOL 400 MG CAP, Take one(1) tablet two(2) times daily., Disp: , Rfl: 0, 12/24/2019 at 2100 - calcium carbonate/vitamin d3(CALCIUM 500 WITH VITAMIN D 500 MG (1,250 MG)-200 UNIT TAB), Take one(1) tablet two(2) times daily., Disp: , Rfl: 0, 12/23/2019 at 2100 - aspirin 325 mg tablet, Take 325 mg by mouth one time only. Pre cath, Disp: , Rfl: - perflutren lipid microspheres (DEFINITY) 1.1 mg/mL injection (to be provided with echo procedure), Inject 1.3 mL intravenously as directed. Administration Instructions: If no IV access, insert saline lock prior to administering contrast. Discontinue saline lock post exam. If patient has central line or IVAD, may access for administration according to line specific nursing protocol. Once exam is complete, flush line and de-access per line specific nursing protocol. Diluted IV Bolus: Dilute 1.3 ml of Definity with 8.7 ml of preservative-free saline, Disp: 1.3 mL, Rfl: 0 - tofacitinib 5 mg tab, Take 1 tablet by mouth twice daily. (Patient not taking: Reported on 12/03/2019), Disp: 60 tablet, Rfl: 0 - ALENDRONATE SODIUM (FOSAMAX ORAL), Take 70 mg by mouth once each week., Disp: , Rfl: - ALL PURPOSE MULTIVITAMIN-MIN ORAL TAB, Take one(1) tablet daily., Disp: , Rfl: 0 ALLERGIES Allergen Reactions - Bactrim [Sulfametho* Rash COMPLETE REVIEW OF SYSTEMS: Review of Systems Constitutional: Negative for activity change, appetite change, diaphoresis, fatigue and fever. HENT: Negative for congestion, dental problem, drooling, ear discharge, ear pain and facial swelling. Eyes: Negative for photophobia, pain, discharge, redness, itching and visual disturbance. Respiratory: Positive for shortness of breath and dyspnea . Negative for apnea, cough, choking, chest tightness, wheezing, stridor and severe COPD. Cardiovascular: Positive for chest pain. Negative for palpitations, leg swelling and CHF. Gastrointestinal: Negative for abdominal distention, abdominal pain and ascites. Endocrine: Negative for cold intolerance, heat intolerance, polydipsia, polyphagia, DM on oral agent, DM w/ diet control and DM on insulin. Genitourinary: Negative for difficulty urinating, dyspareunia, dysuria, enuresis, flank pain and genital sores. Musculoskeletal: Positive for arthralgias. Negative for gait problem, joint swelling and myalgias. Skin: Negative for color change, pallor, rash and wound. Allergic/Immunologic: Negative for environmental allergies, food allergies and immunocompromised state. Neurological: Negative for dizziness, seizures, facial asymmetry, speech difficulty, light-headedness, numbness and headaches. Hematological: Negative for adenopathy, bleeding / clotting disorders , H/O transfusions and disseminated cancer . Does not bruise/bleed easily. Psychiatric/Behavioral: Negative for agitation, behavioral problems, confusion, decreased concentration and dysphoric mood. Objective PHYSICAL EXAM: Physical Exam Constitutional: She is oriented to person, place, and time. She appears well-developed and well-nourished. No distress. HENT: Head: Normocephalic and atraumatic. Right Ear: External ear normal. Left Ear: External ear normal. Mouth/Throat: No oropharyngeal exudate. Eyes: Pupils are equal, round, and reactive to light. Conjunctivae and EOM are normal. Right eye exhibits no discharge. Left eye exhibits no discharge. Neck: No JVD present. No tracheal deviation present. No thyromegaly present. Pulmonary/Chest: No stridor. No respiratory distress. She has no wheezes. She has no rales. She exhibits no tenderness. Abdominal: She exhibits no distension and no mass. There is no abdominal tenderness. There is no rebound and no guarding. Musculoskeletal: General: No tenderness, deformity or edema. Lymphadenopathy: She has no cervical adenopathy. Neurological: She is alert and oriented to person, place, and time. She displays normal reflexes. No cranial nerve deficit. She exhibits normal muscle tone. Coordination normal. Skin: No rash noted. She is not diaphoretic. No erythema. No pallor. Psychiatric: She has a normal mood and affect. Her behavior is normal. Judgment and thought content normal. BP 123/56 Pulse (!) 57 Temp 36.5 ?C (97.7 ?F) (Oral) Resp 16 Ht 162.6 cm (5' 4") Wt 85.5 kg (188 lb 6.4 oz) LMP 12/16/2004 SpO2 96% BMI 32.34 kg/m? Body mass index is 32.34 kg/m?. DATA: Diagnostic tests reviewed for today's visit: Most recent labs and imaging results. Assessment/Plan Active Problems: CAD (coronary artery disease) POA: Yes Assessment AND Plan: Severe CAD need CABG Resolved Problems: * No resolved hospital problems. * SIGNATURE: Humberto Tate MD PATIENT NAME: Nadira Benítez DATE: December 26, 2019 TIME: 3:07 PM PAGER/CONTACT #: [phone] Normal [facility] Hemogramon 12-26-2019 Erythrocyte distribution width (RBC) [Ratio] 13.4 % Normal 11.7-14.4 [facility] Comment on above: Performed By: #### C BC1 #### [facility] [address] [place], [place] [address] Hematocrit (Bld) [Volume fraction] 32.9 % Low 34.1-44.9 [facility] Comment on above: Performed By: #### C BC1 #### [facility] [address] [place], [place] [address] Hemoglobin (Bld) [Mass/Vol] 11.9 g/dL Normal 11.2-15.7 [facility] Comment on above: Performed By: #### C BC1 #### [facility] [address] [place], [place] [address] MCH (RBC) [Entitic mass] 31.7 pg Normal 25.6-32.2 [facility] Comment on above: Performed By: #### C BC1 #### [facility] [address] [place], [place] [address] MCHC (RBC) [Mass/Vol] 36.2 % High 31.6-34.8 [facility] Comment on above: Performed By: #### C BC1 #### [facility] [address] [place], [place] [address] MCV (RBC) [Entitic vol] 87.7 fL Normal 79.4-94.8 [facility] Comment on above: Performed By: #### C BC1 #### [facility] [address] [place], [place] [address] Platelet mean volume (Bld) [Entitic vol] 9.3 fL Low 9.4-12.3 [facility] Comment on above: Performed By: #### C BC1 #### [facility] [address] [place], [place] [address] Platelets (Bld) [#/Vol] 176 thou/cmm Low 182-369 [facility] Comment on above: Performed By: #### C BC1 #### [facility] [address] [place] [address] RBC (Bld) [#/Vol] 3.75 mil/cmm Low 3.93-5.22 [facility] Comment on above: Performed By: #### C BC1 #### [facility] [address] [place] [address] RDW SD 42.8 fl Normal 36.4-46.3 [facility] Comment on above: Performed By: #### C BC1 #### [facility] [address] [place] [address] WBC (Bld) [#/Vol] 8.83 thou/cmm Normal 3.98-10.04 [facility] Comment on above: Performed By: #### C BC1 #### [place] [address] Hgb A1con 12-26-2019 HbA1c (Bld) [Mass fraction] 97 mg/dL Normal [facility] Comment on above: Performed By: #### H A1C #### [place] [address] HbA1c (Bld) [Mass fraction] 5.0 % Normal 4.0-5.6 [facility] Comment on above: Result Comment: [place] [place] Diabetes Association guidelines indicate that the patients with HgA1c in the range 5.7 ? 6.4% are at increased risk for development of diabetes, and intervention by lifestyle modification may be beneficial. HgA1c greater or equal to 6.5% is considered diagnostic of diabetes. Performed By: #### H A1C #### [place] [id number] NUTRITIONon 12-26-2019 NUTRITION HNO ID: [id number] Author: Elia Grider RD Service: Nutrition Therapy Author Type: Registered Dietitian Type: Nutrition Filed: 12/26/2019 3:11 PM Note Text: NUTRITION THERAPY INITIAL ASSESSMENT SERVICE DATE: 12/26/2019 SERVICE TIME: 3:06 PM Nutrition Assessment: Recommended Malnutrition Diagnosis: No Malnutrition Identified Nutrition Diagnosis: Problem: Increased nutrient needs Related to: Acute illness(pending surgery, ERAS protocol) As evidenced by: Medical condition Estimated kilocalorie needs: 7867-6875 Calorie Calculation Method: 15-20 kcals/kg Estimated protein needs (grams): 54-81 Grams protein determined by: 1.0-1.5 g/kg Care Plan: Continue current diet Supplements: Impact AR 1) will order Impact Advanced Recovery 2x daily Monitor and Evaluation: Meet greater than 75% of estimated needs;Monitor fluid/electrolyte balance;Monitor labs, I/Os, vital signs, weight;Monitor bowel function HPI: 64 yo female presents with angina, SOB, heart cath and now pending CABG. Active Hospital Problems Diagnosis Date Noted - CAD (coronary artery disease) 12/25/2019 Intake History: Nutrition Intake Prior to Admission: Greater than 75% estimated energy needs over: day 1 of admission Current Diet: DIET HEART HEALTHY DIET NPO Anthropometrics: Height: 162.6 cm (5' 4") Weight: 85.5 kg (188 lb 6.4 oz) Dosing Weight: 86 kg (189 lb 9.5 oz) Body mass index is 32.34 kg/m?. Obese Weight change percentage over time: pt endorses no changes in wt, She states she has recently attempted to lose a few pounds once she was informed she "may have heart blockage" at outpatient visit Physical Exam: Subcutaneous fat loss: No fat loss Muscle loss: No muscle loss Potential micronutrient deficiency: No deficiency identified Edema/Ascites: No edema GI Symptoms: None Functional Status: Not related to malnutrition status Potential Signs of Inflammation: Heide-operative period;Chronic condition SIGNATURE: Elia Grider RD, LD PATIENT NAME: Nadira Benítez DATE: December 26, 2019 TIME: 3:06 PM PAGER: [phone] [facility] PLAN OF CAREon 12-26-2019 PLAN OF CARE HNO ID: [id number] Author: Yulissa (Director Of Women'S Services Salomón) SALOMÓN Enriquez Service: Cardiovascular Surgery Author Type: Nurse Practitioner Type: Plan of Care Filed: 12/27/2019 12:01 AM Note Text: CTVS Surgery Pre-Op Open Heart Check List Patient Info: Nadira Benítez 1955 64 year old Bactrim [Sulfamethoxazole-Trimet hoprim] Pre-Op Testing: LABS: CHEMISTRY Sodium (mmol/L) Date Value 12/26/2019 139 12/25/2019 139 12/25/2019 139 Chloride (mmol/L) Date Value 12/26/2019 105 12/25/2019 105 12/25/2019 104 CO2 (mmol/L) Date Value 12/26/2019 25 12/25/2019 26 12/25/2019 26 BUN (mg/dL) Date Value 12/26/2019 8 12/25/2019 9 12/25/2019 8 Creatinine (mg/dL) Date Value 12/26/2019 0.57 12/25/2019 0.61 12/25/2019 0.69 Glucose (mg/dL) Date Value 12/26/2019 97 12/25/2019 75 12/25/2019 95 Magnesium (mg/dL) Date Value 12/25/2019 2.0 Protein, Total (g/dL) Date Value 12/25/2019 6.2 08/17/2016 6.5 07/24/2015 6.6 Calcium (mg/dL) Date Value 12/26/2019 9.2 12/25/2019 9.4 12/25/2019 9.4 Bilirubin, Total (mg/dL) Date Value 12/25/2019 1.0 08/17/2016 1.6 07/24/2015 0.9 Alkaline Phosphatase (U/L) Date Value 12/25/2019 60 08/17/2016 52 07/24/2015 54 ALT (U/L) Date Value 12/25/2019 19 08/17/2016 25 07/24/2015 15 AST (U/L) Date Value 12/25/2019 21 08/17/2016 28 07/24/2015 14 Anion Gap (mmol/L) Date Value 12/26/2019 9 12/25/2019 8 12/25/2019 9 { Lipid Panel LDL Chol, [place] Date Value Ref Range Status 04/25/2004 Calculated LDL not valid. 0 - 129 mg/dL Final NT Pro BNP No results found for: PBNP ENDOCRINE Hemoglobin A1C (%) Date Value 12/25/2019 5.0 No results found for: [facility] HEMATOLOGY RBC Date Value 12/26/2019 3.75 mil/cmm 12/25/2019 3.81 mil/cmm 08/17/2016 4.26 m/uL Hemoglobin (g/dL) Date Value 08/17/2016 13.0 07/24/2015 12.0 07/02/2014 12.2 HGB (g/dL) Date Value 12/26/2019 11.9 12/25/2019 11.7 Hematocrit (%) Date Value 12/26/2019 32.9 12/25/2019 33.7 08/17/2016 37.9 WBC Date Value 12/26/2019 8.83 thou/cmm 12/25/2019 5.82 thou/cmm 08/17/2016 7.93 k/uL Platelet Count Date Value 12/26/2019 176 thou/cmm 12/25/2019 168 thou/cmm 08/17/2016 223 k/uL COAGULATION No results found for: PTSEC No results found for: INR Anemia Evaluation: Anemic: No Accept Blood: Yes Blood Conservation Committee: No Ferritin: FE+TIBC: Fe Sat: FOBT: Anemia Treatment: na UA pH, Urine Date Value Ref Range Status 12/26/2019 6.5 5.0 - 8.0 Final Specific Berry, Ur Date Value Ref Range Status 12/26/2019 1.013 1.005 - 1.030 Final Glucose, Urine Date Value Ref Range Status 12/26/2019 NEGATIVE Negative mg/dL Final Bilirubin, Urine Date Value Ref Range Status 12/26/2019 NEGATIVE Negative Final Ketones, Urine Date Value Ref Range Status 12/26/2019 NEGATIVE Negative mg/dL Final Protein, Urine Date Value Ref Range Status 12/26/2019 NEGATIVE Negative mg/dL Final Leukocytes Esterase Date Value Ref Range Status 12/26/2019 TRACE (A) Negative Final Bacteria, Urine Date Value Ref Range Status 12/26/2019 NONE None Final Type AND Screen: Results for NADIRA BENÍTEZ ( ) as of 12/26/2019 23:59 Ref. Range 12/26/2019 20:34 ABO Group Unknown O RH Type Unknown Negative Antibody Screen Latest Ref Range: NEGATIVE NEGATIVE Blood Bank Comment Unknown See Below Xmatch Unit 1 Unknown see below Xmatch Unit 2 Unknown see below RBC Cross match: 2 unites MRSA Screen: negative COVID: In process, was collected on 12/25 @ 3:07 pm Chronic Lung Disease: No FEVI: 103 %. DLCO: ABG: ETHAN: No IMAGING/PROCEDURES CXR: RESULT: Lines, tubes, and devices: ?practice architect leads. Lungs and pleura: ?No consolidation. No lung mass. No pleural effusion. No pneumothorax. Cardiomediastinal silhouette: ?Normal cardiomediastinal silhouette. Bones and soft tissues: ?The patient has had previous cervical spine fusion. Cardiac Catheterization: Angiography: ? LEFT MAIN: Normal ? LEFT CIRCUMFLEX: Severe distal 90% ? LEFT ANTERIOR DESCENDING: Severe Proximal 99% Heavy calcified LAD with moderate disease in the D1 ? RIGHT CORONARY ARTERY: Mild diffuse disease ? LEFT VENTRICULOGRAPHY: Normal LV size and function LVEF= 60% At this point, the procedure was terminated. All diagnostic wires and catheters were removed. ? 2D Echo: CONCLUSIONS: - Exam indication: Shortness of Breath - The left ventricle is normal in size. Left ventricular systolic function is normal. EF = 62 ? 5% (2D biplane) Grade I left ventricular diastolic dysfunction. - The right ventricle is normal in size. Right ventricular systolic function is normal. - The left atrial cavity is mildly dilated. - There are no significant valvular abnormalities. - The patient has not had a prior CC echocardiographic exam for comparison. 5 Meter Walk Test: 5 Meter Walk Test Completed: Yes Trial 1 # of Seconds: 7.51 Trial 1 Assistive Device: None Trial 2 # of Seconds: 6.82 Trial 2 Assistive Device: None Trial 3 # of Seconds: 6.26 Trial 3 Assistive Device: None OPTIONAL TESTINGS: Carotid U/S: RIGHT SIDE Common carotid artery: Plaque visualized without evidence of hemodynamically significant stenosis. Internal carotid artery: Elevated velocities consistent with a 60-79% stenosis noted, but minimal plaque is visualized. Tortious distal right ICA. External carotid artery: Elevated velocities and plaque noted. Vertebral artery: Patent and antegrade flow noted. LEFT SIDE Common carotid artery: Patent. Internal carotid artery: 0-19% stenosis. External carotid artery: Patent. Vertebral artery: Patent and antegrade flow noted [place]: [place] Arch: Vein Mapping: Dental Clearance: CT Chest: NA Medications: Blood thinners: Patient is on following blood thinners: Aspirin -Yes, dose 81 mg, stopped No, date:DOS Beta Chuy: Last dose of beta chuy taken: DOS Tylenol 1000 mg DOS: Yes Neurontin 200 mg DOS: Yes DARSHAN/ARB: Stop 24 hours preop Yes Last dose date 12/25 Steroids: No Chronic Immunosuppressive drugs: Yes, RA meds: Methotrexate Heparin stop time addressed: NA SGLT 2 inhibitor hold 3-4 days: No Implantable Device: No NA Turned off date: NA Perioperative Transfusion risk Advanced age No Preoperative anemia No Non-CABG surgery No Preoperative anticoagulation No Clotting abnormalities No Female gender Yes Small body habitus No Renal insufficiency No IDDM No Sepsis No Liver disease No Post-operative Wound Healing - Vest recommended Yes (Yes to any one of the below requires a post thorax vest) Risk Factors: Obesity Yes DM No Renal Dx No COPD No Bilateral RAMY No Dietitian consultation: Yes Drinks provided (outpatient setting): No CLEARANCES NEEDED Pulmonary: No Hematology: No Nephrology No Vascular surgery No Other No Yulissa Enriquez APRN.SALOMÓN [facility] PLAN OF CARE HNO ID: [id number] Author: Yulissa (Director Of Women'S Services [place]) SALOMÓN Enriquez Service: Cardiovascular Surgery Author Type: Nurse Practitioner Type: Plan of Care Filed: 12/26/2019 1:52 PM Note Text: CARDIOTHORACIC SURGERY PLAN OF CARE SERVICE DATE: December 26, 2019 SERVICE TIME: 1:50 PM Patient is visited today. I offered the cardiac surgery binder with content reviewed briefly with patient. I went over post-op recovery expectations (ICU, [id number] then home) with patient. For pre-op lung function optimization, patient is offered IS. Nutrition consult is placed per ERAS protocol. Pre-op check list review performed: still missing COVID TEST AND T ANDS . Communicated with nursing staff to make sure it is done today for surgery possible tomorrow. Pre-op preparation orders placed, including: NPO, meds(BB, ASA, Tylenol and Neurontin), CHG bath. MRSA result reviewed and treatment order reviewed, blood products ordered x2. Questions and concerns are addressed and emotional support provided. Family at bedside. Patient has no questions at this point. Still have no guarantee OR for tomorrow, but it might be a possibility, therefore, pre-op orders are placed for just in case. Yulissa Enriquez APRN.CNP [facility] PROGRESSon 12-26-2019 PROGRESS HNO ID: [id number] Author: Eleno Chavez Service: Thoracic Surgery Author Type: Physician Type: Progress Notes Filed: 12/26/2019 3:46 PM Note Text: Patient seen again today as OR has become available. Seen with daughter at bedside. Surgical Discussion: I have discussed the benefits, risks, indications, and alternatives to surgery with the patient. Risks discussed include but are not limited to infection, bleeding, cardiac dysrhythmias, myocardial infarction, stroke, , blood clots, pneumonia, wound complications, wound infection, blood transfusion with associated risks of AIDS or Hepatitis, and the occasional need for reoperation for bleeding or other complications. Expected OR, ICU, hospitalization, and home recovery times were discussed. The patient was also made aware of 1+/mild MR on previous echo which does not need addressed surgically and also found CT narrowing of 60-79% with bruit which is asymptomatic and may increase periop stroke risk, but needs no intervention at this time, but will need to followup with vascular surgery in future/6mnths. The patient and her daughter state they understand these things, have no further questions, and wish to proceed in AM. [facility] PROGRESS HNO ID: [id number] Author: Eleno Chavez Service: Thoracic Surgery Author Type: Physician Type: Progress Notes Filed: 12/26/2019 12:42 PM Note Text: For Jose Angel Patient seen, cath films reviewed, patient evaluated and examined. Consult dictated #[id number]. Trying to obtain OR time. Patient agreeable to eval and cabg. Case reviewed with BIOLOGY LABORATORY ASSISTANT as well. [facility] PROGRESS HNO ID: [id number] Author: Eleno Chavez Service: Thoracic Surgery Author Type: Physician Type: Progress Notes Filed: 12/26/2019 7:18 AM Note Text: 12/24: [place]> MV CAD. Possible CABG with PJS. Pending work up. ??? [facility] RBC Productson 12-26-2019 Xmatch Unit 1 see below [facility] Comment on above: Result Comment: Comp atible Performed By: #### H A1C #### [place] [id number] Xmatch Unit 2 see below [facility] Comment on above: Result Comment: Comp atible Performed By: #### H A1C #### [place] [id number] Type and Screenon 12-26-2019 ABO group Nom (Bld) O [facility] Comment on above: Performed By: #### G LMET #### [place] [id number] Comment See Below Normal [facility] Comment on above: Result Comment: Scre en &/or Xmatch expires in 3 days at 12 midnight. Redraw patient at that time. Performed By: #### G LMET #### [facility] [address] [place] [address] RH Type Negative Normal [facility] Comment on above: Performed By: #### G LMET #### [facility] [address] [place] [address] US CAROTID BILon 12-26-2019 Bilirubin.direct [Mass/Vol] Final Report DATE OF EXAM: Dec 26 2019 12:00AM A2U 1077 - US CAROTID LUIZA / PROCEDURE REASON: preop Physician Interpretation Non-Invasive Vascular Laboratory [facility] Carotid Duplex Bilateral/Complete Date of service/time: 12/26/2019 10:24:45 AM Name: MRS. NADIRA BENÍTEZ Date of : 1955 Age: 64 years Gender: F Medical History Tobacco: No Coronary disease: Yes Hypertension: Yes Clinical Indication Pre op clearance. TECHNIQUE -------- A carotid duplex ultrasound examination was performed, including grayscale imaging and color Doppler and spectral Doppler examination of the below mentioned arteries. FINDINGS -------- RIGHT SIDE Common carotid artery: Proximal: PSV: 70 cm/s. EDV: 14 cm/s. Distal: PSV: 103 cm/s. EDV: 26 cm/s. Internal carotid artery: Origin: PSV: 75 cm/s. EDV: 21 cm/s. Proximal: PSV: 94 cm/s. EDV: 29 cm/s. Mid: PSV: 117 cm/s. EDV: 45 cm/s. Distal: PSV: 213 cm/s. EDV: 58 cm/s. ICA/CCA Ratio: 2.1 External carotid artery: Proximal: PSV: 182 cm/s. EDV: 16 cm/s. Mild homogeneous plaque at proximal. Vertebral artery: Mid: PSV: 51 cm/s. EDV: 13 cm/s. LEFT SIDE Common carotid artery: Proximal: PSV: 78 cm/s. EDV: 21 cm/s. Distal: PSV: 102 cm/s. EDV: 28 cm/s. Mild homogeneous plaque throughout. Internal carotid artery: Origin: PSV: 66 cm/s. EDV: 23 cm/s. Proximal: PSV: 66 cm/s. EDV: 27 cm/s. Mid: PSV: 93 cm/s. EDV: 35 cm/s. Distal: PSV: 84 cm/s. EDV: 37 cm/s. Mild homogeneous plaque at proximal. ICA/CCA Ratio: 0.9 External carotid artery: Proximal: PSV: 100 cm/s. EDV: 19 cm/s. Mild homogeneous plaque at proximal. Vertebral artery: Mid: PSV: 59 cm/s. EDV: 24 cm/s. IMPRESSION RIGHT SIDE Common carotid artery: Plaque visualized without evidence of hemodynamically significant stenosis. Internal carotid artery: Elevated velocities consistent with a 60-79% stenosis noted, but minimal plaque is visualized. Tortious distal right ICA. External carotid artery: Elevated velocities and plaque noted. Vertebral artery: Patent and antegrade flow noted. LEFT SIDE Common carotid artery: Patent. Internal carotid artery: 0-19% stenosis. External carotid artery: Patent. Vertebral artery: Patent and antegrade flow noted. Technologist: Yadira Ortez Ordering physician: HUMBERTO TATE Interpreting physician: Ysabel Bustillo MD Final RP Molder Sweep: YARIEL Transcribe Date/Time: Dec 26 2019 10:24A Dictated by : YSABEL BUSTILLO MD This examination was interpreted and the report reviewed and electronically signed by: YSABEL BUSTILLO MD on Dec 26 2019 1:49PM EST Normal [facility] Urinalysis, reflexon 020 Bacteria LM.HPF (Urine sed) [#/Area] NONE Normal None [facility] Comment on above: Performed By: #### M AG #### [place] [id number] Ep Cells Urine 0.3 /hpf Normal 0.0-5.0 [facility] Comment on above: Performed By: #### M AG #### [place] [address] Hyaline Cast 0.3 /lpf Normal 0.0-1.0 [facility] Comment on above: Performed By: #### M AG #### [place] [address] RBC LM.HPF (Urine sed) [#/Area] 0.8 /[HPF] Normal 0.0-5.0 [facility] Comment on above: Performed By: #### M AG #### [place] [address] Reflex Comment see below Normal [facility] Comment on above: Result Comment: A ur ine culture has been ordered based on established laboratory criteria. Performed By: #### M AG #### [place] [address] WBC, reflex 1.10 /hpf Normal 0.00-5.00 [facility] Comment on above: Performed By: #### M AG #### [place] [address] Appearance (U) CLEAR Normal [facility] Comment on above: Performed By: #### M AG #### [place] [address] Bilirubin (U) [Mass/Vol] Negative Normal Negative [facility] Comment on above: Performed By: #### M AG #### [place] [address] Color (U) YELLOW Normal [facility] Comment on above: Performed By: #### M AG #### [place] [address] Glucose Ql (U) Negative Normal Negative [facility] Comment on above: Performed By: #### M AG #### [place] [address] Hemoglobin,Urine Negative Normal Negative [facility] Comment on above: Performed By: #### M AG #### [place] [address] Ketone Urine Negative Normal Negative [facility] Comment on above: Performed By: #### M AG #### [facility] [address] [place] [address] Leukocyte esterase Test strip Ql (U) TRACE Abnormal Negative [facility] Comment on above: Performed By: #### M AG #### [facility] [address] [place] [address] Nitrite reflex Negative Normal Negative [facility] Comment on above: Performed By: #### M AG #### [facility] [address] [place] [address] pH (U) 6.5 [pH] Normal 5.0-8.0 [facility] Comment on above: Performed By: #### M AG #### [facility] [address] [place] [address] Protein (U) [Mass/Vol] Negative Normal Negative [facility] Comment on above: Performed By: #### M AG #### [place] [address] Specific Berry, Ur 1.013 Normal 1.005-1 .03 0 [facility] Comment on above: Performed By: #### M AG #### [facility] [address] [place] [address] Urobilinogen,Ur 0.2 EU/dL Normal 0.2-1.0 [facility] Comment on above: Performed By: #### M AG #### [place] [address] Basic Metabolic Panelon 12-10 Anion gap [Moles/Vol] 9 mmol/L Normal 9-18 [facility] Comment on above: Performed By: #### C BC1 #### [facility] [address] [place] [address] Calcium [Mass/Vol] 9.4 mg/dL Normal 8.5-10.2 [facility] Comment on above: Performed By: #### C BC1 #### [place] [address] Chloride [Moles/Vol] 104 mmol/L Normal 97-105 [facility] Comment on above: Performed By: #### C BC1 #### [facility] [address] [place], [place] [address] CO2 Blood 26 mmol/L Normal 22-30 [facility] Comment on above: Performed By: #### C BC1 #### [facility] [address] [place], [place] [address] Creatinine [Mass/Vol] 0.69 mg/dL Normal 0.58-0.96 [facility] Comment on above: Performed By: #### C BC1 #### [facility] [address] [place], [place] [address] Glucose [Mass/Vol] 95 mg/dL Normal 74-99 [facility] Comment on above: Result Comment: The [place] [employer] (ADA) provides guidance for cutoff values for fasting glucose and random glucose. The ADA defines fasting as no caloric intake for at least 8 hours.Fasting plasma glucose results between 100 to 125 mg/dL indicate increased risk for diabetes (prediabetes). Fasting plasma glucose results greater than or equal to 126 mg/dL meet the criteria for diagnosis of diabetes. In the absence of unequivocal hyperglycemia, results should be confirmed by repeat testing. In a patient with classic symptoms of hyperglycemia or hyperglycemic crisis, random plasma glucose results greater than or equal to 200 mg/dL meet the criteria for diagnosis of diabetes. Reference: Standards of Medical Care in Diabetes 2016; [place] [employer] Association. Diabetes Care. 2016;39(Suppl 1). Performed By: #### C BC1 #### [facility] [address] [place], [place] [address] Potassium [Moles/Vol] 4.3 mmol/L Normal 3.7-5.1 [facility] Comment on above: Performed By: #### C BC1 #### [facility] [address] [place], [place] [address] Sodium [Moles/Vol] 139 mmol/L Normal 136-144 [facility] Comment on above: Performed By: #### C BC1 #### [facility] [address] [place], [place] [address] Urea nitrogen [Mass/Vol] 8 mg/dL Normal 7-21 [facility] Comment on above: Performed By: #### C BC1 #### [facility] [address] [place] [id number] CONSULTon 12-25-2019 CONSULT HNO ID: [id number] Author: Yulissa (Rosalva Lorenzana) SALOMÓN Enriquez Service: Cardiovascular Surgery Author Type: Nurse Practitioner Type: Consults Filed: 12/25/2019 5:40 PM Note Text: CARDIOTHORACIC SURGERY CONSULT / HANDP SERVICE DATE: 12/25/2019 SERVICE TIME: 3:29 PM Subjective PRIMARY SERVICE: Cardiothoracic Surgery CHIEF COMPLAINT: Angina, SOB, abnormal elective LHC HPI: This is a 64 year old woman with PMH significant for HTN, HLD, Ex-smoker of 10+ yr (quit in 30s), chest palpitation (was told lots of ectopies: PVCs and PACs), was treated by Dr. Muñoz in past with BB with resolution, RA on Methotrexate complicated by cervical osteopathy required both anterior and posterior cervical fusions, past diverticulitis required partial bowl resection (20-30 yrs ago), general anxiety and depression, who has ongoing exertional angina and SOB, who recently established with Dr. Tate in [place]. Patient described chest pressure located on left side of her chest, rated 6/10, occurs when she walks incline or sometimes minimal exertion, associated sx also include: SOB, diaphoresis. She denies LH/DZ, palpitation, presyncope or syncope, Orthopnea, or PND. No leg edema noted. However, she did report significant exertional intolerance or easily fatigue in gradual fashion in the last 6 months. When the chest pressure first occurred, patient attributed to her shoulder pain related to RA, but the chest pressure has been consistent with mild radiation to her left neck/jaw and occasionally shoulders. EKG showed TWI in v1, v2, and v3, c/w LAD ischemia. Given her cardiac risk factors: age, gender, HLD, ex smoker, HTN and very significant FH of CAD (Both mother and brother had CABG in 60s, and sister had CABG in 40s), Dr. Tate recommended outpatient LHC. LHC done on 12/24 showed: LEFT MAIN: Normal ? LEFT CIRCUMFLEX: Severe distal 90% ? LEFT ANTERIOR DESCENDING: Severe Proximal 99% Heavy calcified LAD with moderate disease in the D1 ? RIGHT CORONARY ARTERY: Mild diffuse disease ? LEFT VENTRICULOGRAPHY: Normal LV size and function LVEF= 60% Echo done on 12/10/2019 demonstrated: The left ventricle is normal in size. Left ventricular systolic function is normal. EF = 62 ? 5% (2D biplane) Grade I left ventricular diastolic dysfunction. - The right ventricle is normal in size. Right ventricular systolic function is normal. The left atrial cavity is mildly dilated. There are no significant valvular abnormalities. Patient was visited in [facility] post , who appears to be anxious and c/o no active CP at this time. She is denies dyspnea on exertion, orthopnea, paroxysmal nocturnal dyspnea, lower extremity edema, presyncope, syncope, or palpitations. She reports that she has cut back on her activities to prevent another chest pressure at home. Patient denied past medical history of CVA/TIA, DVT or PE, bleeding or clotting disorder, COPD, renal disease, liver disease, PAD/PVD, or cancers. Patient did mention arthrosclerotic disease in her carotid from one of her neck film" when she followed up for her neck fusion, no carotid US was performed. Patient is Able to Perform the Following Physical Activity: Take care of self; that is eating, dressing, bathing, using the toilet (2.75 METs) Patient has the following medical comorbidities which might affect the perioperative course: - Hypertension, uncontrolled but NO change in medication as patient did not take medications today. - Patient is overweight related to excessive caloric intake. Body mass index is 32.34 kg/m?. - RA on methotrexate PAST MEDICAL HISTORY Diagnosis Date - Anemia, unspecified - Cardiac dysrhythmia, unspecified - Cervical vertebral fusion 2014 - Dysthymic disorder - Esophageal reflux - Generalized osteoarthrosis, unspecified site knees - Lumbago PAST SURGICAL HISTORY Procedure Laterality Date - ANTERIOR INTERBODY FUSION, CERVICAL 2015 - PAST SURGICAL HISTORY OF colon resected - PAST SURGICAL HISTORY OF cyst knee - ROTATOR CUFF REPAIR Right 2015 FAMILY HISTORY Problem Relation Age of Onset - Breast Cancer Sister AGE 46 CA OF BONE - Osteoporosis Mother - Breast Cancer Maternal Aunt - Breast Cancer Other MATERNAL COUSIN - Cancer Father LEUKEMIA AGE 56 - Heart Mother CAD,CHF, renal failure - Diabetes Brother - other (RENAL DIS [Other]) Sister DIALYSIS FOR 23 YRS, Social History Tobacco Use - Smoking status: Former Smoker - Smokeless tobacco: Never Used - Tobacco comment: quit at least 10 years ago Substance Use Topics - Alcohol use: Yes Comment: 2 times a year - Drug use: No - aspirin 325 mg tablet, Take 325 mg by mouth one time only. Pre cath, Disp: , Rfl: , 12/25/2019 at 0600 - hydrOXYchloroQUINE (PLAQUENIL) 200 mg tablet, Take 200 mg by mouth twice daily., Disp: , Rfl: , 12/24/2019 at 2100 - methotrexate 2.5 mg tablet, Take 8 tablets by mouth once each week., Disp: 96 tablet, Rfl: 1, 12/23/2019 at 0900 - folic acid 1 mg tablet, Take 1 tablet by mouth once daily., Disp: 90 tablet, Rfl: 1, 12/24/2019 at 0800 - folic acid 1 mg tablet, Take 2 tablets by mouth once daily., Disp: 180 tablet, Rfl: 1, 12/24/2019 at 0800 - celecoxib (CELEBREX) 200 mg capsule, Take 200 mg by mouth twice daily., Disp: , Rfl: , 12/24/2019 at 2100 - pyridoxine, vitamin B6, (VITAMIN B-6) 100 mg tablet, Take 100 mg by mouth once daily., Disp: , Rfl: , 12/24/2019 at 0800 - DULoxetine (CYMBALTA) 30 mg capsule, Take 30 mg by mouth once daily., Disp: , Rfl: , 12/24/2019 at 2100 - gabapentin (NEURONTIN) 600 mg tablet, Take 1,200 mg by mouth three times daily., Disp: , Rfl: , 12/24/2019 at 2100 - lisinopril (ZESTRIL, PRINIVIL) 10 mg tablet, Take 10 mg by mouth twice daily., Disp: , Rfl: , 12/24/2019 at 2100 - atorvastatin (LIPITOR) 80 mg tablet, Take 80 mg by mouth once daily., Disp: , Rfl: , 12/24/2019 at 2100 - zolpidem (AMBIEN) 10 mg tab, Take by mouth at bedtime as needed., Disp: , Rfl: , 12/24/2019 at 2100 - ALPRAZolam (XANAX) 0.5 mg tablet, Take 0.5 mg by mouth at bedtime as needed., Disp: , Rfl: , 12/24/2019 at 2100 - Cholecalciferol, Vitamin D3, (VITAMIN D) 1,000 unit cap, Take 1,000 Units by mouth once daily., Disp: , Rfl: , 12/24/2019 at 2100 - cyanocobalamin (B-12 DOTS) 500 mcg tab, Take by mouth once daily., Disp: , Rfl: , 12/24/2019 at 0800 - magnesium oxide 400 mg cap, Take by mouth once daily., Disp: , Rfl: , 12/24/2019 at 2100 - aspirin(ECOTRIN LOW STRENGTH 81 MG TAB), Take one(1) tablet daily., Disp: , Rfl: 0, 12/24/2019 at 0800 - ACEBUTOLOL 400 MG CAP, Take one(1) tablet two(2) times daily., Disp: , Rfl: 0, 12/24/2019 at 2100 - calcium carbonate/vitamin d3(CALCIUM 500 WITH VITAMIN D 500 MG (1,250 MG)-200 UNIT TAB), Take one(1) tablet two(2) times daily., Disp: , Rfl: 0, 12/23/2019 at 2100 - perflutren lipid microspheres (DEFINITY) 1.1 mg/mL injection (to be provided with echo procedure), Inject 1.3 mL intravenously as directed. Administration Instructions: If no IV access, insert saline lock prior to administering contrast. Discontinue saline lock post exam. If patient has central line or IVAD, may access for administration according to line specific nursing protocol. Once exam is complete, flush line and de-access per line specific nursing protocol. Diluted IV Bolus: Dilute 1.3 ml of Definity with 8.7 ml of preservative-free saline, Disp: 1.3 mL, Rfl: 0 - tofacitinib 5 mg tab, Take 1 tablet by mouth twice daily. (Patient not taking: Reported on 12/03/2019), Disp: 60 tablet, Rfl: 0 - ALENDRONATE SODIUM (FOSAMAX ORAL), Take 70 mg by mouth once each week., Disp: , Rfl: - pantoprazole DR (PROTONIX) 20 mg tablet, Take 20 mg by mouth once daily., Disp: , Rfl: - oxyCODONE-acetaminophen (PERCOCET) 5-325 mg tablet, Take 1 tablet by mouth every 8 hours as needed for Pain., Disp: , Rfl: 0 - ALL PURPOSE MULTIVITAMIN-MIN ORAL TAB, Take one(1) tablet daily., Disp: , Rfl: 0 aspirin 325 mg tablet, Take 325 mg by mouth one time only. Pre cath hydrOXYchloroQUINE (PLAQUENIL) 200 mg tablet, Take 200 mg by mouth twice daily. methotrexate 2.5 mg tablet, Take 8 tablets by mouth once each week. folic acid 1 mg tablet, Take 1 tablet by mouth once daily. folic acid 1 mg tablet, Take 2 tablets by mouth once daily. celecoxib (CELEBREX) 200 mg capsule, Take 200 mg by mouth twice daily. pyridoxine, vitamin B6, (VITAMIN B-6) 100 mg tablet, Take 100 mg by mouth once daily. DULoxetine (CYMBALTA) 30 mg capsule, Take 30 mg by mouth once daily. gabapentin (NEURONTIN) 600 mg tablet, Take 1,200 mg by mouth three times daily. lisinopril (ZESTRIL, PRINIVIL) 10 mg tablet, Take 10 mg by mouth twice daily. atorvastatin (LIPITOR) 80 mg tablet, Take 80 mg by mouth once daily. zolpidem (AMBIEN) 10 mg tab, Take by mouth at bedtime as needed. ALPRAZolam (XANAX) 0.5 mg tablet, Take 0.5 mg by mouth at bedtime as needed. Cholecalciferol, Vitamin D3, (VITAMIN D) 1,000 unit cap, Take 1,000 Units by mouth once daily. cyanocobalamin (B-12 DOTS) 500 mcg tab, Take by mouth once daily. magnesium oxide 400 mg cap, Take by mouth once daily. aspirin(ECOTRIN LOW STRENGTH 81 MG TAB), Take one(1) tablet daily. ACEBUTOLOL 400 MG CAP, Take one(1) tablet two(2) times daily. calcium carbonate/vitamin d3(CALCIUM 500 WITH VITAMIN D 500 MG (1,250 MG)-200 UNIT TAB), Take one(1) tablet two(2) times daily. perflutren lipid microspheres (DEFINITY) 1.1 mg/mL injection (to be provided with echo procedure), Inject 1.3 mL intravenously as directed. Administration Instructions: If no IV access, insert saline lock prior to administering contrast. Discontinue saline lock post exam. If patient has central line or IVAD, may access for administration according to line specific nursing protocol. Once exam is complete, flush line and de-access per line specific nursing protocol. Diluted IV Bolus: Dilute 1.3 ml of Definity with 8.7 ml of preservative-free saline tofacitinib 5 mg tab, Take 1 tablet by mouth twice daily. ALENDRONATE SODIUM (FOSAMAX ORAL), Take 70 mg by mouth once each week. pantoprazole DR (PROTONIX) 20 mg tablet, Take 20 mg by mouth once daily. oxyCODONE-acetaminophen (PERCOCET) 5-325 mg tablet, Take 1 tablet by mouth every 8 hours as needed for Pain. ALL PURPOSE MULTIVITAMIN-MIN ORAL TAB, Take one(1) tablet daily. ALLERGIES Allergen Reactions - Bactrim [Sulfametho* Rash REVIEW OF SYSTEMS: PAIN ASSESSMENT: CURRENTLY HAVING PAIN; LOCATION/DISTRIBUTION: neck and shoulders HISTORY OF CHRONIC PAIN OR CURRENTLY BEING TREATED FOR A CHRONIC PAIN CONDITION: Yes, CONDITION: chronic TREATING PROVIDER: was established with a pain management but stopped going to them DURATION: for a couple yrs LAST SEEN: 2-3 yrs ago TREATMENT INCLUDES(D) CONTROLLED SUBSTANCES/SCHEDULED MEDICATIONS: was on Fentanyl, Oxycodone and was getting injections. PAIN PANEL/TOXICOLOGY AVAILABLE: No OARRS: Yes, reviewed GENERAL: No weight loss, malaise or fevers NECK: Negative for lumps, goiter, pain and significant neck swelling RESPIRATORY: Negative for cough, wheezing or shortness of breath., Positive for shortness of breath on exertion when exert, such as walking on incline CARDIOVASCULAR: See HPI GI: Negative for abdominal discomfort, blood in stools or black stools or change in bowel habits : No history of dysuria, frequency or incontinence and Positive for frequency likel due to overactive bladder urgency overactive bladder MUSCULOSKELETAL: Negative for joint pain or swelling, back pain or muscle pain. SKIN: Negative for lesions, rash, and itching. PSYCH: Negative for sleep disturbance, mood disorder and recent psychosocial stressors. HEMATOLOGY/LYMPHOLOGY Negative for prolonged bleeding, bruising easily or swollen nodes. ENDOCRINE: Negative for cold or heat intolerance, polyuria, polydipsia and goiter. NEURO: numbness or tingling of feet See HPI Objective PHYSICAL EXAM: BP 150/92 Pulse 62 Temp 36.1 ?C (97 ?F) (Tympanic) Resp 16 Ht 162.6 cm (5' 4") Wt 85.5 kg (188 lb 6.4 oz) LMP 12/16/2004 SpO2 96% BMI 32.34 kg/m? Body surface area is 1.96 meters squared. STS RISK CALCULATOR: STS Adult Cardiac Surgery Database Version 2.9 RISK SCORES Procedure: Isolated CAB CALCULATE Risk of Mortality: 0.745% Renal Failure: 0.888% Permanent Stroke: 0.662% Prolonged Ventilation: 3.604% DSW Infection: 0.177% Reoperation: 1.413% Morbidity or Mortality: 5.872% Short Length of Stay: 54.971% Long Length of Stay: 2.148% STS Calculator General Appearance: well developed, obese and no distress Skin: warm, dry, surgical scars noted and on cervial spine and left knee Neck: no JVD, no carotid bruits and thyroid not palpable Lungs: clear and respiratory effort: normal Heart: regular rhythm, S1, S2 normal and no murmur Peripheral Vascular/Arteries: pulses intact and radial +2 Abdomen: soft, non-tender and bowel sounds present Genitourinary: voiding without difficulty Musculoskeletal: no deformities Neurologic/Psychiatric: oriented to time, place and person and steady gait Extremities: normal exam of the extremities Lines, Drains, and Airways None @LDAASSESS(2::::8:)@ DATA: Diagnostic tests reviewed for today's visit: Significant Lab Results Cardiac Catheterization ECHO EKG Recent Labs 12/25/19 0835 RBC 3.81* WBC 5.82 HB 11.7 HCT 33.7* PLT 168* NA 139 K 4.3 CHLOR 104 CO2 26 BUN 8 CREAT 0.69 GLUC 95 CA 9.4 ANION 9 Assessment/Plan MV CAD ANGINA - patient is being admitted to inpatient for urgent CABG evaluation - c/w ASA, BB and Stain - case reviewed with Dr. Chavez: tentatively surgery possible end of the week or early next week - will defer to Dr. Tate for possible Hep gtt given exertional Angina and severe prox LAD and distal CX - pre-op work up in progress: bedside PFT, carotid us, pain management c/s Tests/Labs Ordered: 1. Chest X-ray 2. CMP 3. HbA1c (average sugar test) 4. Urinalysis 5. Mag blood 6. Pain management 7. BEDSIDE PFT 8. NUTRITION C/S The risks, benefits, and anticipated outcomes of the procedure; the risks and benefits of the alternatives to the procedure; and the roles and tasks of the personnel to be involved were discussed with the patient. These findings will be communicated back to the requesting provider electronically. SIGNATURE: Yulissa Enriquez APRN.CNP PATIENT NAME: Nadira Benítez DATE: December 25, 2019 TIME: 3:29 PM PAGER/CONTACT #:[id number] ETX [id number] Normal [facility] Comprehensive Metabolic Pane chen 12-25-2019 Albumin [Mass/Vol] 4.4 g/dL Normal 3.9-4.9 [facility] Comment on above: Performed By: #### C MP #### [facility] [address] [place], [place] [address] ALP [Catalytic activity/Vol] 60 U/L Normal 34-123 [facility] Comment on above: Performed By: #### C MP #### [facility] [address] [place], [place] [address] ALT [Catalytic activity/Vol] 19 U/L Normal 7-38 [facility] Comment on above: Performed By: #### C MP #### [address] [address] Anion gap [Moles/Vol] 8 mmol/L Low 9-18 [facility] Comment on above: Performed By: #### C MP #### [facility] [address] [place], [place] [address] AST [Catalytic activity/Vol] 21 U/L Normal 13-35 [facility] Comment on above: Performed By: #### C MP #### [facility] [address] [place], [place] [address] Bilirubin [Mass/Vol] 1.0 mg/dL Normal 0.2-1.3 [facility] Comment on above: Performed By: #### C MP #### [facility] [address] [place], [place] [address] Calcium [Mass/Vol] 9.4 mg/dL Normal 8.5-10.2 [facility] Comment on above: Performed By: #### C MP #### [facility] [address] [place], [place] [address] Chloride [Moles/Vol] 105 mmol/L Normal 97-105 [facility] Comment on above: Performed By: #### C MP #### [facility] [address] [place], [place] [address] CO2 Blood 26 mmol/L Normal 22-30 [facility] Comment on above: Performed By: #### C MP #### [facility] [address] [place], [place] [address] Creatinine [Mass/Vol] 0.61 mg/dL Normal 0.58-0.96 [facility] Comment on above: Performed By: #### C MP #### [facility] [address] [place], [place] [address] Glucose [Mass/Vol] 75 mg/dL Normal 74-99 [facility] Comment on above: Result Comment: The [place] [employer] (ADA) provides guidance for cutoff values for fasting glucose and random glucose. The ADA defines fasting as no caloric intake for at least 8 hours.Fasting plasma glucose results between 100 to 125 mg/dL indicate increased risk for diabetes (prediabetes). Fasting plasma glucose results greater than or equal to 126 mg/dL meet the criteria for diagnosis of diabetes. In the absence of unequivocal hyperglycemia, results should be confirmed by repeat testing. In a patient with classic symptoms of hyperglycemia or hyperglycemic crisis, random plasma glucose results greater than or equal to 200 mg/dL meet the criteria for diagnosis of diabetes. Reference: Standards of Medical Care in Diabetes 2016; [place] [employer]. Diabetes Care. 2016;39(Suppl 1). Performed By: #### C MP #### [facility] [address] [place], [place] [address] Potassium [Moles/Vol] 3.6 mmol/L Low 3.7-5.1 [facility] Comment on above: Performed By: #### C MP #### [facility] [address] [place], [place] [address] Protein [Mass/Vol] 6.2 g/dL Low 6.3-8.0 [facility] Comment on above: Performed By: #### C MP #### [facility] [address] [place], [place] [address] Sodium [Moles/Vol] 139 mmol/L Normal 136-144 [facility] Comment on above: Performed By: #### C MP #### [facility] [address] [place], [place] [address] Urea nitrogen [Mass/Vol] 9 mg/dL Normal 7-21 [facility] Comment on above: Performed By: #### C MP #### [facility] [address] [place] [address] HISTORY PHYSICALon 0 HISTORY PHYSICAL HNO ID: [id number] Author: Humberto Tate Service: Interventional Cardiology Author Type: Physician Type: HANDP Filed: 12/25/2019 10:04 AM Note Text: UPDATED HANDP PRE-CARDIAC CATHETERIZATION SERVICE DATE: 12/25/2019 SERVICE TIME: 9:00 am PHYSICAL EXAM MUST BE COMPLETED ON ADMISSION The History and Physical (completed in the past 30 days) has been reviewed and the patient has been examined. The contents accurately reflect the patient's condition with the following additions or revisions since the HANDP was completed. Examination indicates no changes. Planned Procedure: Left Heart Cath Primary Indication for Procedure: Angina Equivalent High Risk Features: History of Prior CABG: No History of Prior PCI: No Cardiomyopathy: No Anti-ischemic Meds in Past 2 Weeks: Beta blockers and Other anti-ischemic drug therapy Ejection Fraction: 60% from Previous Echo Risk Appropriateness: Angina Class in Past 2 Weeks: Class III - Marked limitation of ordinary physical activity Cardiogenic Shock: NoHeart Failure: None Stress Test Performed: None EKG Assessment: Abnormal; T-wave inversions Family History of Premature CAD: Mother, age 50 Evaluation for Preop Clearance: Cardiac Surgery, Functional Capacity; >= 4 METS without symptoms, Surgical Risk; High, Non-Vascular HISTORY OF BLEEDING: No This HANDP can be found in the Electronic Medical Record dated 12/03/19 SIGNATURE: Humberto Tate MD PATIENT NAME: Nadira Benítez DATE: December 25, 2019 TIME: 10:01 AM PAGER: Normal [facility] Hemogramon 12-25-2019 Erythrocyte distribution width (RBC) [Ratio] 13.7 % Normal 11.7-14.4 [facility] Comment on above: Performed By: #### C BC1 #### [facility] [address] [place] [address] Hematocrit (Bld) [Volume fraction] 33.7 % Low 34.1-44.9 [facility] Comment on above: Performed By: #### C BC1 #### [address] [place], [place] [address] Hemoglobin (Bld) [Mass/Vol] 11.7 g/dL Normal 11.2-15.7 [facility] Comment on above: Performed By: #### C BC1 #### [facility] [address] [place] [address] MCH (RBC) [Entitic mass] 30.7 pg Normal 25.6-32.2 [facility] Comment on above: Performed By: #### C BC1 #### [facility] [address] [place] [address] MCHC (RBC) [Mass/Vol] 34.7 % Normal 31.6-34.8 [facility] Comment on above: Performed By: #### C BC1 #### [facility] [address] [place] [address] MCV (RBC) [Entitic vol] 88.5 fL Normal 79.4-94.8 [facility] Comment on above: Performed By: #### C BC1 #### [facility] [address] [place] [address] Platelet mean volume (Bld) [Entitic vol] 9.3 fL Low 9.4-12.3 [facility] Comment on above: Performed By: #### C BC1 #### [facility] [address] [place] [address] Platelets (Bld) [#/Vol] 168 thou/cmm Low 182-369 [facility] Comment on above: Performed By: #### C BC1 #### [facility] [address] [place] [address] RBC (Bld) [#/Vol] 3.81 mil/cmm Low 3.93-5.22 [facility] Comment on above: Performed By: #### C BC1 #### [facility] [address] [place] [address] RDW SD 44.2 fl Normal 36.4-46.3 [facility] Comment on above: Performed By: #### C BC1 #### [facility] [address] [place] [address] WBC (Bld) [#/Vol] 5.82 thou/cmm Normal 3.98-10.04 [facility] Comment on above: Performed By: #### C BC1 #### [address] [address] Magnesium Bloodon 12-25-2019 Magnesium [Mass/Vol] 2.0 mg/dL Normal 1.7-2.3 [facility] Comment on above: Performed By: #### C BC1 #### [address] [address] NURSING PROGon 12-25-2019 NURSING PROG HNO ID: [id number] Author: Treva EspinozaRn) SALVATORE Roberto Service: ASSESSMENT Author Type: Registered Nurse Type: Nursing Progress Note Filed: 12/25/2019 5:04 PM Note Text: 1500 patient visiting with daughter resting comfortably, VSS. No complaints of pain. Normal [facility] NURSING PROG HNO ID: [id number] Author: Treva EspinozaRn) SALVATORE Roberto Service: ASSESSMENT Author Type: Registered Nurse Type: Nursing Progress Note Filed: 12/25/2019 5:03 PM Note Text: 1220 TR band removed, band aid applied 2 + radial pulse, upper arm soft, hand warm + cap refill. Continue to monitor. Normal [facility] NURSING PROG HNO ID: [id number] Author: Treva EspinozaRn) SALVATORE oRberto Service: ASSESSMENT Author Type: Registered Nurse Type: Nursing Progress Note Filed: 12/25/2019 5:02 PM Note Text: 1045 air release initiated. No change in assessment Normal [facility] NURSING PROG HNO ID: [id number] Author: Treva EspinozaRn) SALVATORE Roberto Service: ASSESSMENT Author Type: Registered Nurse Type: Nursing Progress Note Filed: 12/25/2019 10:05 AM Note Text: 1000 patient return to POD, right wrist TR band on, 1+ radial pulse, hand warm + cap refill, upper arm soft. VSS. No complaints of pain. Patient eating breakfast, family at bedside. Continue to monitor, Normal [facility] NURSING PROG HNO ID: [id number] Author: Treva Roberto RN Service: ASSESSMENT Author Type: Registered Nurse Type: Nursing Progress Note Filed: 12/25/2019 8:20 AM Note Text: 0819 patient admitted to POD, pre procedure teaching at bedside. Review of medications with patient Normal [facility] XR CHEST 2V FRONTAL/LATon XR CHEST 2V FRONTAL/LAT Final Report DATE OF EXAM: Dec 25 2019 8:01PM [id number] [id number] - XR CHEST 2V FRONTAL/LAT / PROCEDURE REASON: Prior revascularization (either PTCA or CABG) Physician Interpretation EXAMINATION: CHEST RADIOGRAPH (2 VIEW FRONTAL & LATERAL) CLINICAL HISTORY: Prior revascularization (either PTCA or CABG) coronary artery disease. MQ: [id number] EXAM DATE/TIME: 12/25/2019 8:01 PM COMPARISON: None. RESULT: Lines, tubes, and devices: practice architect leads. Lungs and pleura: No consolidation. No lung mass. No pleural effusion. No pneumothorax. Cardiomediastinal silhouette: Normal cardiomediastinal silhouette. Bones and soft tissues: The patient has had previous cervical spine fusion. IMPRESSION: No acute radiographic abnormality. Molder Sweep: PSCB Transcribe Date/Time: Dec 26 2019 8:30A Dictated by : TANIA BURNS MD This examination was interpreted and the report reviewed and electronically signed by: TANIA BURNS MD on Dec 26 2019 8:32AM EST Normal [facility] HOSPon 12-03-2019 HOSP Patient:Nusrat Benítez MRN: Height:5' 4.016"(1.626 m) Weight:184 lb 1.6 oz (83.507 kg) Outpatient Medications as of 12/27/19: aspirin 325 mg tablet hydrOXYchloroQUINE (PLAQUENIL) 200 mg tablet perflutren lipid microspheres (DEFINITY) 1.1 mg/mL injection (to be provided with echo procedure) methotrexate 2.5 mg tablet folic acid 1 mg tablet folic acid 1 mg tablet tofacitinib 5 mg tab celecoxib (CELEBREX) 200 mg capsule pyridoxine, vitamin B6, (VITAMIN B-6) 100 mg tablet DULoxetine (CYMBALTA) 30 mg capsule gabapentin (NEURONTIN) 600 mg tablet ALENDRONATE SODIUM (FOSAMAX ORAL) lisinopril (ZESTRIL, PRINIVIL) 10 mg tablet atorvastatin (LIPITOR) [address] (PROTONIX) 20 mg tablet zolpidem (AMBIEN) 10 mg tab ALPRAZolam (XANAX) 0.5 mg tablet Cholecalciferol, Vitamin D3, (VITAMIN D) 1,000 unit cap cyanocobalamin (B-12 DOTS) 500 mcg tab magnesium oxide 400 mg cap oxyCODONE-acetaminophen (PERCOCET) 5-325 mg tablet aspirin(ECOTRIN LOW STRENGTH 81 MG TAB) ACEBUTOLOL 400 MG CAP calcium carbonate/vitamin d3(CALCIUM 500 WITH VITAMIN D 500 MG (1,250 MG)-200 UNIT TAB) ALL PURPOSE MULTIVITAMIN-MIN ORAL TAB Admission/Clinic Administered Medications as of 12/27/19: oxyCODONE-acetaminophen 5-325 mg 1 tablet (PERCOCET) ALPRAZolam 0.5 mg tab(s) (XANAX) docusate sodium 100 mg cap(s) (COLACE) bisacodyl EC 10 mg tab(s) (DULCOLAX) hydrALAZINE 10 mg injection (APRESOLINE) alendronate 70 mg tab(s) (FOSAMAX) aspirin 81 mg chewable tab(s) gabapentin 1,200 mg cap(s) (NEURONTIN) atorvastatin 80 mg tab(s) (LIPITOR) hydrOXYchloroQUINE 200 mg tab(s) (PLAQUENIL) metoprolol tartrate (short acting) 25 mg tab(s) (LOPRESSOR) mupirocin 2 % ointment (BACTROBAN) nitroglycerin sublingual 0.4 mg tab(s) (NITROQUICK) zolpidem 10 mg tab(s) (AMBIEN) isosorbide mononitrate ER 30 mg tab(s) (IMDUR) acetaminophen 325-650 mg tab(s) (TYLENOL) Problem List: Cardiac dysrhythmia, unspecified [I49.9] Dysthymic disorder [F34.1] Anemia, unspecified [D64.9] Generalized osteoarthrosis, unspecified site [M15.9] Lumbago [M54.5] Sprain of foot, unspecified site [S93.739A] Seronegative rheumatoid arthritis (HCC) [M06.00] Angina of effort (HCC) [I20.8] CAD (coronary artery disease) [I25.10] Allergies: Bactrim [Sulfamethoxazole-Trimet hoprim] Date Verified: 12/27/19 Lab Values Lab Value Units Date High Low POTA* 3.5 mmol/L 12/26/2019 5.1 3.7 TROY* 32.9 % 12/26/2019 44.9 34.1 Progress Notes (): Treva Roberto, RN, RN 12/25/2019 8:20 AM Signed 0819 patient admitted to POD, pre procedure teaching at bedside. Review of medications with patient Humberto Tate MD 12/25/2019 10:01 AM Signed LEFT HEART CATHETERIZATION PROCEDURE NOTE Surgery/Procedure Date: 12/25/2019 Referring Physician: Clinical History: This is a 64 year old female with exertional angina and shortness of breath for cath Consent: Informed consent was obtained after the risks, benefits, and alternatives to and of this procedure were discussed in detail with the patient. Procedure in Detail: The patient was brought to the cardiac catheterization laboratory, prepped and draped in the usual sterile fashion. Anxiolysis was achieved with intravenous and intravenous benadryl. Local anesthesia was achieved over the groin with 1% lidocaine. A pre-flushed 6-Armenian sheath was inserted into the Right radial artery via the Seldinger technique without complications. Retrograde percutaneous diagnostic coronary angiography and left ventriculography were performed using a Ryan left 4 catheter, a 3-D RC catheter, and an angled pigtail catheter. There were no complications of the procedure. Findings: Angiography: LEFT MAIN: Normal LEFT CIRCUMFLEX: Severe distal 90% LEFT ANTERIOR DESCENDING: Severe Proximal 99% Heavy calcified LAD with moderate disease in the D1 RIGHT CORONARY ARTERY: Mild diffuse disease LEFT VENTRICULOGRAPHY: Normal LV size and function LVEF= 60% At this point, the procedure was terminated. All diagnostic wires and catheters were removed. Recommendations: 1. Daily aspirin indefinitely 2. Cardiovascular consultation for CABG. 3. Statin use 4. Secondary cardiac prevention measures. 5. Admit patient to hospital. SIGNATURE: Humberto Tate MD PATIENT NAME: Nadira Benítez DATE: December 25, 2019 TIME: 9:57 AM Humberto Tate MD 12/25/2019 10:04 AM Signed UPDATED HANDP PRE-CARDIAC CATHETERIZATION SERVICE DATE: 12/25/2019 SERVICE TIME: 9:00 am PHYSICAL EXAM MUST BE COMPLETED ON ADMISSION The History and Physical (completed in the past 30 days) has been reviewed and the patient has been examined. The contents accurately reflect the patient's condition with the following additions or revisions since the HANDP was completed. Examination indicates no changes. Planned Procedure: Left Heart Cath Primary Indication for Procedure: Angina Equivalent High Risk Features: History of Prior CABG: No History of Prior PCI: No Cardiomyopathy: No Anti-ischemic Meds in Past 2 Weeks: Beta blockers and Other anti-ischemic drug therapy Ejection Fraction: 60% from Previous Echo Risk Appropriateness: Angina Class in Past 2 Weeks: Class III - Marked limitation of ordinary physical activity Cardiogenic Shock: NoHeart Failure: None Stress Test Performed: None EKG Assessment: Abnormal; T-wave inversions Family History of Premature CAD: Mother, age 50 Evaluation for Preop Clearance: Cardiac Surgery, Functional Capacity; >= 4 METS without symptoms, Surgical Risk; High, Non-Vascular HISTORY OF BLEEDING: No This HANDP can be found in the Electronic Medical Record dated 12/03/19 SIGNATURE: Humberto Tate MD PATIENT NAME: Nadira Benítez DATE: December 25, 2019 TIME: 10:01 AM PAGER: Treva Roberto, RN, RN 12/25/2019 10:05 AM Signed 1000 patient return to POD, right wrist TR band on, 1+ radial pulse, hand warm + cap refill, upper arm soft. VSS. No complaints of pain. Patient eating breakfast, family at bedside. Continue to monitor, Yulissa Enriquez APRN.DEVELOPMENT AND HOUSING DIRECTOR, DEVELOPMENT AND HOUSING DIRECTOR 12/25/2019 5:40 PM Signed CARDIOTHORACIC SURGERY CONSULT / HANDP SERVICE DATE: 12/25/2019 SERVICE TIME: 3:29 PM Subjective PRIMARY SERVICE: Cardiothoracic Surgery CHIEF COMPLAINT: Angina, SOB, abnormal elective [facility] HPI: This is a 64 year old woman with PMH significant for HTN, HLD, Ex-smoker of 10+ yr (quit in 30s), chest palpitation (was told lots of ectopies: PVCs and PACs), was treated by Dr. Muñoz in past with BB with resolution, RA on Methotrexate complicated by cervical osteopathy required both anterior and posterior cervical fusions, past diverticulitis required partial bowl resection (20-30 yrs ago), general anxiety and depression, who has ongoing exertional angina and SOB, who recently established with Dr. Tate in [place]. Patient described chest pressure located on left side of her chest, rated 6/10, occurs when she walks incline or sometimes minimal exertion, associated sx also include: SOB, diaphoresis. She denies LH/DZ, palpitation, presyncope or syncope, Orthopnea, or PND. No leg edema noted. However, she did report significant exertional intolerance or easily fatigue in gradual fashion in the last 6 months. When the chest pressure first occurred, patient attributed to her shoulder pain related to RA, but the chest pressure has been consistent with mild radiation to her left neck/jaw and occasionally shoulders. EKG showed TWI in v1, v2, and v3, c/w LAD ischemia. Given her cardiac risk factors: age, gender, HLD, ex smoker, HTN and very significant FH of CAD (Both mother and brother had CABG in 60s, and sister had CABG in 40s), Dr. Tate recommended outpatient LHC. LHC done on 12/24 showed: LEFT MAIN: Normal ? LEFT CIRCUMFLEX: Severe distal 90% ? LEFT ANTERIOR DESCENDING: Severe Proximal 99% Heavy calcified LAD with moderate disease in the D1 ? RIGHT CORONARY ARTERY: Mild diffuse disease ? LEFT VENTRICULOGRAPHY: Normal LV size and function LVEF= 60% Echo done on 12/10/2019 demonstrated: The left ventricle is normal in size. Left ventricular systolic function is normal. EF = 62 ? 5% (2D biplane) Grade I left ventricular diastolic dysfunction. - The right ventricle is normal in size. Right ventricular systolic function is normal. The left atrial cavity is mildly dilated. There are no significant valvular abnormalities. Patient was visited in [facility] post , who appears to be anxious and c/o no active CP at this time. She is denies dyspnea on exertion, orthopnea, paroxysmal nocturnal dyspnea, lower extremity edema, presyncope, syncope, or palpitations. She reports that she has cut back on her activities to prevent another chest pressure at home. Patient denied past medical history of CVA/TIA, DVT or PE, bleeding or clotting disorder, COPD, renal disease, liver disease, PAD/PVD, or cancers. Patient did mention "arthrosclerotic disease in her carotid from one of her neck film" when she followed up for her neck fusion, no carotid US was performed. Patient is Able to Perform the Following Physical Activity: Take care of self; that is eating, dressing, bathing, using the toilet (2.75 METs) Patient has the following medical comorbidities which might affect the perioperative course: - Hypertension, uncontrolled but NO change in medication as patient did not take medications today. - Patient is overweight related to excessive caloric intake. Body mass index is 32.34 kg/m?. - RA on methotrexate PAST MEDICAL HISTORY Diagnosis Date - Anemia, unspecified - Cardiac dysrhythmia, unspecified - Cervical vertebral fusion 2014 - Dysthymic disorder - Esophageal reflux - Generalized osteoarthrosis, unspecified site knees - Lumbago PAST SURGICAL HISTORY Procedure Laterality Date - ANTERIOR INTERBODY FUSION, CERVICAL 2015 - PAST SURGICAL HISTORY OF colon resected - PAST SURGICAL HISTORY OF cyst knee - ROTATOR CUFF REPAIR Right 2015 FAMILY HISTORY Problem Relation Age of Onset - Breast Cancer Sister AGE 46 CA OF BONE - Osteoporosis Mother - Breast Cancer Maternal Aunt - Breast Cancer Other MATERNAL COUSIN - Cancer Father LEUKEMIA AGE 56 - Heart Mother CAD,CHF, renal failure - Diabetes Brother - other (RENAL DIS [Other]) Sister DIALYSIS FOR 23 YRS, Social History Tobacco Use - Smoking status: Former Smoker - Smokeless tobacco: Never Used - Tobacco comment: quit at least 10 years ago Substance Use Topics - Alcohol use: Yes Comment: 2 times a year - Drug use: No - aspirin 325 mg tablet, Take 325 mg by mouth one time only. Pre cath, Disp: , Rfl: , 12/25/2019 at 0600 - hydrOXYchloroQUINE (PLAQUENIL) 200 mg tablet, Take 200 mg by mouth twice daily., Disp: , Rfl: , 12/24/2019 at 2100 - methotrexate 2.5 mg tablet, Take 8 tablets by mouth once each week., Disp: 96 tablet, Rfl: 1, 12/23/2019 at 0900 - folic acid 1 mg tablet, Take 1 tablet by mouth once daily., Disp: 90 tablet, Rfl: 1, 12/24/2019 at 0800 - folic acid 1 mg tablet, Take 2 tablets by mouth once daily., Disp: 180 tablet, Rfl: 1, 12/24/2019 at 0800 - celecoxib (CELEBREX) 200 mg capsule, Take 200 mg by mouth twice daily., Disp: , Rfl: , 12/24/2019 at 2100 - pyridoxine, vitamin B6, (VITAMIN B-6) 100 mg tablet, Take 100 mg by mouth once daily., Disp: , Rfl: , 12/24/2019 at 0800 - DULoxetine (CYMBALTA) 30 mg capsule, Take 30 mg by mouth once daily., Disp: , Rfl: , 12/24/2019 at 2100 - gabapentin (NEURONTIN) 600 mg tablet, Take 1,200 mg by mouth three times daily., Disp: , Rfl: , 12/24/2019 at 2100 - lisinopril (ZESTRIL, PRINIVIL) 10 mg tablet, Take 10 mg by mouth twice daily., Disp: , Rfl: , 12/24/2019 at 2100 - atorvastatin (LIPITOR) 80 mg tablet, Take 80 mg by mouth once daily., Disp: , Rfl: , 12/24/2019 at 2100 - zolpidem (AMBIEN) 10 mg tab, Take by mouth at bedtime as needed., Disp: , Rfl: , 12/24/2019 at 2100 - ALPRAZolam (XANAX) 0.5 mg tablet, Take 0.5 mg by mouth at bedtime as needed., Disp: , Rfl: , 12/24/2019 at 2100 - Cholecalciferol, Vitamin D3, (VITAMIN D) 1,000 unit cap, Take 1,000 Units by mouth once daily., Disp: , Rfl: , 12/24/2019 at 2100 - cyanocobalamin (B-12 DOTS) 500 mcg tab, Take by mouth once daily., Disp: , Rfl: , 12/24/2019 at 0800 - magnesium oxide 400 mg cap, Take by mouth once daily., Disp: , Rfl: , 12/24/2019 at 2100 - aspirin(ECOTRIN LOW STRENGTH 81 MG TAB), Take one(1) tablet daily., Disp: , Rfl: 0, 12/24/2019 at 0800 - ACEBUTOLOL 400 MG CAP, Take one(1) tablet two(2) times daily., Disp: , Rfl: 0, 12/24/2019 at 2100 - calcium carbonate/vitamin d3(CALCIUM 500 WITH VITAMIN D 500 MG (1,250 MG)-200 UNIT TAB), Take one(1) tablet two(2) times daily., Disp: , Rfl: 0, 12/23/2019 at 2100 - perflutren lipid microspheres (DEFINITY) 1.1 mg/mL injection (to be provided with echo procedure), Inject 1.3 mL intravenously as directed. Administration Instructions: If no IV access, insert saline lock prior to administering contrast. Discontinue saline lock post exam. If patient has central line or IVAD, may access for administration according to line specific nursing protocol. Once exam is complete, flush line and de-access per line specific nursing protocol. Diluted IV Bolus: Dilute 1.3 ml of Definity with 8.7 ml of preservative-free saline, Disp: 1.3 mL, Rfl: 0 - tofacitinib 5 mg tab, Take 1 tablet by mouth twice daily. (Patient not taking: Reported on 12/03/2019), Disp: 60 tablet, Rfl: 0 - ALENDRONATE SODIUM (FOSAMAX ORAL), Take 70 mg by mouth once each week., Disp: , Rfl: - pantoprazole DR (PROTONIX) 20 mg tablet, Take 20 mg by mouth once daily., Disp: , Rfl: - oxyCODONE-acetaminophen (PERCOCET) 5-325 mg tablet, Take 1 tablet by mouth every 8 hours as needed for Pain., Disp: , Rfl: 0 - ALL PURPOSE MULTIVITAMIN-MIN ORAL TAB, Take one(1) tablet daily., Disp: , Rfl: 0 aspirin 325 mg tablet, Take 325 mg by mouth one time only. Pre cath hydrOXYchloroQUINE (PLAQUENIL) 200 mg tablet, Take 200 mg by mouth twice daily. methotrexate 2.5 mg tablet, Take 8 tablets by mouth once each week. folic acid 1 mg tablet, Take 1 tablet by mouth once daily. folic acid 1 mg tablet, Take 2 tablets by mouth once daily. celecoxib (CELEBREX) 200 mg capsule, Take 200 mg by mouth twice daily. pyridoxine, vitamin B6, (VITAMIN B-6) 100 mg tablet, Take 100 mg by mouth once daily. DULoxetine (CYMBALTA) 30 mg capsule, Take 30 mg by mouth once daily. gabapentin (NEURONTIN) 600 mg tablet, Take 1,200 mg by mouth three times daily. lisinopril (ZESTRIL, PRINIVIL) 10 mg tablet, Take 10 mg by mouth twice daily. atorvastatin (LIPITOR) 80 mg tablet, Take 80 mg by mouth once daily. zolpidem (AMBIEN) 10 mg tab, Take by mouth at bedtime as needed. ALPRAZolam (XANAX) 0.5 mg tablet, Take 0.5 mg by mouth at bedtime as needed. Cholecalciferol, Vitamin D3, (VITAMIN D) 1,000 unit cap, Take 1,000 Units by mouth once daily. cyanocobalamin (B-12 DOTS) 500 mcg tab, Take by mouth once daily. magnesium oxide 400 mg cap, Take by mouth once daily. aspirin(ECOTRIN LOW STRENGTH 81 MG TAB), Take one(1) tablet daily. ACEBUTOLOL 400 MG CAP, Take one(1) tablet two(2) times daily. calcium carbonate/vitamin d3(CALCIUM 500 WITH VITAMIN D 500 MG (1,250 MG)-200 UNIT TAB), Take one(1) tablet two(2) times daily. perflutren lipid microspheres (DEFINITY) 1.1 mg/mL injection (to be provided with echo procedure), Inject 1.3 mL intravenously as directed. Administration Instructions: If no IV access, insert saline lock prior to administering contrast. Discontinue saline lock post exam. If patient has central line or IVAD, may access for administration according to line specific nursing protocol. Once exam is complete, flush line and de-access per line specific nursing protocol. Diluted IV Bolus: Dilute 1.3 ml of Definity with 8.7 ml of preservative-free saline tofacitinib 5 mg tab, Take 1 tablet by mouth twice daily. ALENDRONATE SODIUM (FOSAMAX ORAL), Take 70 mg by mouth once each week. pantoprazole DR (PROTONIX) 20 mg tablet, Take 20 mg by mouth once daily. oxyCODONE-acetaminophen (PERCOCET) 5-325 mg tablet, Take 1 tablet by mouth every 8 hours as needed for Pain. ALL PURPOSE MULTIVITAMIN-MIN ORAL TAB, Take one(1) tablet daily. ALLERGIES Allergen Reactions - Bactrim [Sulfametho* Rash REVIEW OF SYSTEMS: PAIN ASSESSMENT: CURRENTLY HAVING PAIN; LOCATION/DISTRIBUTION: neck and shoulders HISTORY OF CHRONIC PAIN OR CURRENTLY BEING TREATED FOR A CHRONIC PAIN CONDITION: Yes, CONDITION: chronic TREATING PROVIDER: was established with a pain management but stopped going to them DURATION: for a couple yrs LAST SEEN: 2-3 yrs ago TREATMENT INCLUDES(D) CONTROLLED SUBSTANCES/SCHEDULED MEDICATIONS: was on Fentanyl, Oxycodone and was getting injections. PAIN PANEL/TOXICOLOGY AVAILABLE: No OARRS: Yes, reviewed GENERAL: No weight loss, malaise or fevers NECK: Negative for lumps, goiter, pain and significant neck swelling RESPIRATORY: Negative for cough, wheezing or shortness of breath., Positive for shortness of breath on exertion when exert, such as walking on incline CARDIOVASCULAR: See HPI GI: Negative for abdominal discomfort, blood in stools or black stools or change in bowel habits : No history of dysuria, frequency or incontinence and Positive for frequency likel due to overactive bladder urgency overactive bladder MUSCULOSKELETAL: Negative for joint pain or swelling, back pain or muscle pain. SKIN: Negative for lesions, rash, and itching. PSYCH: Negative for sleep disturbance, mood disorder and recent psychosocial stressors. HEMATOLOGY/LYMPHOLOGY Negative for prolonged bleeding, bruising easily or swollen nodes. ENDOCRINE: Negative for cold or heat intolerance, polyuria, polydipsia and goiter. NEURO: numbness or tingling of feet See HPI Objective PHYSICAL EXAM: BP 150/92 Pulse 62 Temp 36.1 ?C (97 ?F) (Tympanic) Resp 16 Ht 162.6 cm (5' 4") Wt 85.5 kg (188 lb 6.4 oz) LMP 12/16/2004 SpO2 96% BMI 32.34 kg/m? Body surface area is 1.96 meters squared. STS RISK CALCULATOR: STS Adult Cardiac Surgery Database Version 2.9 RISK SCORES Procedure: Isolated CAB CALCULATE Risk of Mortality: 0.745% Renal Failure: 0.888% Permanent Stroke: 0.662% Prolonged Ventilation: 3.604% DSW Infection: 0.177% Reoperation: 1.413% Morbidity or Mortality: 5.872% Short Length of Stay: 54.971% Long Length of Stay: 2.148% STS Calculator General Appearance: well developed, obese and no distress Skin: warm, dry, surgical scars noted and on cervial spine and left knee Neck: no JVD, no carotid bruits and thyroid not palpable Lungs: clear and respiratory effort: normal Heart: regular rhythm, S1, S2 normal and no murmur Peripheral Vascular/Arteries: pulses intact and radial +2 Abdomen: soft, non-tender and bowel sounds present Genitourinary: voiding without difficulty Musculoskeletal: no deformities Neurologic/Psychiatric: oriented to time, place and person and steady gait Extremities: normal exam of the extremities Lines, Drains, and Airways None @LDAASSESS(2::::8:)@ DATA: Diagnostic tests reviewed for today's visit: Significant Lab Results Cardiac Catheterization ECHO EKG Recent Labs 12/25/19 0835 RBC 3.81* WBC 5.82 HB 11.7 HCT 33.7* PLT 168* NA 139 K 4.3 CHLOR 104 CO2 26 BUN 8 CREAT 0.69 GLUC 95 CA 9.4 ANION 9 Assessment/Plan MV CAD ANGINA - patient is being admitted to inpatient for urgent CABG evaluation - c/w ASA, BB and Stain - case reviewed with Dr. Chavez: tentatively surgery possible end of the week or early next week - will defer to Dr. Taet for possible Hep gtt given exertional Angina and severe prox LAD and distal CX - pre-op work up in progress: bedside PFT, carotid us, pain management c/s Tests/Labs Ordered: 1. Chest X-ray 2. CMP 3. HbA1c (average sugar test) 4. Urinalysis 5. Mag blood 6. Pain management 7. BEDSIDE PFT 8. NUTRITION C/S The risks, benefits, and anticipated outcomes of the procedure; the risks and benefits of the alternatives to the procedure; and the roles and tasks of the personnel to be involved were discussed with the patient. These findings will be communicated back to the requesting provider electronically. SIGNATURE: Yulissa Enriquez APRN.DEVELOPMENT AND HOUSING DIRECTOR PATIENT NAME: Nadira Benítez DATE: December 25, 2019 TIME: 3:29 PM PAGER/CONTACT #:[id number] ETX [id number] Treva Roberto RN, RN 12/25/2019 5:02 PM Signed 1045 air release initiated. No change in assessment Treva Roberto RN, RN 12/25/2019 5:03 PM Signed 1220 TR band removed, band aid applied 2 + radial pulse, upper arm soft, hand warm + cap refill. Continue to monitor. Treva Roberto RN, RN 12/25/2019 5:04 PM Signed 1500 patient visiting with daughter resting comfortably, VSS. No complaints of pain. Eleno Chavez MD 12/26/2019 4:[address] [facility] - Consultation PATIENT NAME: NADIRA BENÍTEZ CSN: [id number] DATE OF : 1955 SEX/AGE: F/64 PATIENT TYPE: I HOSP SV: CARD LOCATION: [id number] DATE OF SERVICE: 12/26/2019 TIME OF SERVICE: 12:31 PM REFERRING PHYSICIAN: HUMBERTO TATE REQUESTED PHYSICIAN: Kanu Walter MD. CONSULTING PHYSICIAN: Eleno Chavez MD. INDICATIONS AND FINDINGS: This patient was undergoing evaluation for some chest discomfort, pressure in nature, with some radiation towards the shoulder and arm with shortness of breath with exertion such as walking up an incline. Ultimately, she underwent cardiac catheterization, having had multiple risk factors and strong family history. This was carried out as an outpatient yesterday by Dr. Tate. This shows high-grade stenosis with calcification in the proximal LAD, which filled somewhat slowly. The patient has a small to medium, diffusely diseased, diagonal branch, high-grade stenosis in the AV groove branch subserving a distal circumflex, which is nearly codominant in appearance. The right coronary artery has some mild plaque disease, but no high-grade stenosis was identified. Ejection fraction was felt to be 60% with a PVC during the LV gram. The patient was admitted following the cardiac catheterization and we were asked to evaluate her for coronary artery bypass grafting surgery. Risk factors as noted above/by BIOLOGY LABORATORY ASSISTANT including a longstanding history of hypertension, hyperlipidemia, [id number] cigarette smoking history, back in her 20s and 30s, a strong family history with mother and brother having bypass grafting surgery and a sister having bypass grafting surgery. FAMILY HISTORY: As noted above is positive for breast cancer, heart disease in early age in first-degree relatives. PAST MEDICAL HISTORY: Remarkable for a history of both rheumatoid arthritis, though the rheumatoid factor is negative, but she is treated with Plaquenil and methotrexate as well as osteoarthritis and for that she has undergone left knee replacement with a good result a number of years ago. She also has a history of obesity. History of previous cigarette smoking. History of generalized anxiety disorder. History of depression, history of chronic pain with multiple cervical operations, gastroesophageal reflux, which has flared again recently. Remote history of anemia. She does not feel she has anemia at this time. She denies previous history of diabetes mellitus, liver disease, kidney disease, previous myocardial infarction, stroke, or congestive heart failure. PAST SURGICAL HISTORY: Fairly extensive, including a tonsillectomy and adenoidectomy at a younger age. She had anterior cervical fusion procedure in approximately 2014, later had a posterior approach as the anterior repair "broke down." She had previous segmental colon resection for diverticulitis or diverticular disease. The ovaries were also taken at that time because they looked precancerous. Still has her uterus and tubes. She had a left total knee replacement. She had right rotator cuff repair approximately 2015. SOCIAL HISTORY: The patient has the above noted cigarette smoking history. Very limited alcohol intake, 1 or 2 drinks per month. REVIEW OF SYSTEMS: Negative for any current abdominal complaints. No blood in the stools. No blood in the urine. She has above-noted chronic musculoskeletal problems related to 2 forms of arthritis and at least 2 cervical spine operations. She has had some pain changes in her feet. Apparently that has responded to Plaquenil treatment. No recent amaurosis fugax, lateralizing transient ischemic attacks, or history of strokes. No history of congestive heart failure. As noted above, she is not aware of any current active anemia. She has above-noted gastroesophageal reflux symptoms, which had flared recently. PHYSICAL EXAMINATION: GENERAL: Reveals a well-developed, well-nourished, obese female, in no acute distress. She is alert and oriented x3. She did place on a face mask when Asked. HEENT: Remarkable for the face mask. Pupils are reactive. External canals grossly clear. Examination of the neck showed perhaps a soft bruit versus a soft radiated cardiac murmur on the right side. No bruit on the left side. Carotid pulses palpable bilaterally. LUNGS: Very clear to auscultation anteriorly and posteriorly. There is no wheezing, rhonchi, or rales. CARDIAC: Remarkable for soft grade 1-2 systolic murmur heard at the base on the right. UPPER EXTREMITY: Shows the radial pulse is palpable bilaterally. No clubbing, cyanosis, or edema. ABDOMEN: Obese, soft. Bowel sounds noted. LOWER EXTREMITY: Shows some scar consistent with previous surgery. She has clearly palpable posterior tibial pulses bilaterally. She appears to have adequate saphenous vein. There is no history of saphenous vein stripping. NEUROLOGIC: Grossly intact by inspection only. IMAGING STUDIES: As noted above. Cardiac cath films have been reviewed. The patient has been seen in initial consultation for consideration for coronary artery bypass grafting surgery during the current admission. Workup and evaluation are in progress. PLAN AND RECOMMENDATIONS: The begging process for an OR began late yesterday and is still not available. Workup and evaluation are ongoing. The patient is very familiar with bypass grafting surgery from multiple family members undergoing it. Eleno Chavez MD Cardiothoracic Surgery PS:desiree /[id number] Previous Version Soila Cordova MD 12/26/2019 9:58 AM Signed Name: NADIRA BENÍTEZ Age: [age] year old PAIN MANAGEMENT: Seronegative rheumatoid arthritis, chronic neck pain, Neuropathy, multivessel coronary artery disease with plan for CABG Pain Description: Patient denied chest pain. Complains of chronic RA pain in her hands, shoulders, neck, hips and knees. Worse with activity Interval HPI: 24H Comfort Meds: Tylenol 3 25-650 mg every 4 hours PRN 650 mg x 1 's Xanax 0.5 mg at bedtime as needed x1 Gabapentin 1200 mg 3 times daily x1 Plaquenil 200 mg twice daily Subjective HPI: 64-year-old female with history of hypertension, hyperlipidemia, prior tobacco abuse, strong family history of coronary artery disease, seronegative rheumatoid arthritis, cervical degenerative disc disease, neuropathy, anxiety with insomnia, depression presented 12/24 With exertional angina and dyspnea. Cardiac cath demonstrated multivessel coronary artery disease; she has been referred for consideration for CABG. Patient has chronic multifactorial pain predominantly secondary to seronegative rheumatoid arthritis for the last 10 years. She recently started going to Dr. Hong at [facility] in [place]. Pain regimen includes methotrexate and Plaquenil. She also has chronic pain from cervical degenerative disc disease for which she underwent 2 prior cervical fusions. She has tried medical marijuana but states vaping hurts her chest. Pain regimen includes gabapentin 1200 mg up to 3 times daily for neuropathy bilateral feet of unknown etiology. She previously had been going to Dr. Fernch in [place] for pain management and had been on high-dose opiates including fentanyl patches, Percocet but she has not been to its program for 2 more than 2 years. She had numerous injections which were not effective Patient lives with her son and [id number] and 2 granddaughters. She quit tobacco in her 30s; previous 10-year pack history. She uses alcohol rarely. She denies illicit meds. OARRS Review: 76 prescriptions from 3 prescribers mostly for medical marijuana which she has not used for a month. Most recent prescriptions other than THC: 12/13 Ambien 10 mg #30 12/13 Xanax 0.5 mg #90 10/24 gabapentin 600 mg #540 (90ds) Current Facility-Administered Medications Medication Dose Route Frequency Provider Last Rate Last Dose - oxyCODONE-acetaminophen 5-325 mg 1 tablet (PERCOCET) 1 tablet ORAL q 4 H PRN Soila Vogt Scantling 1 tablet at 12/26/19 0910 - ALPRAZolam 0.5 mg tab(s) (XANAX) 0.5 mg ORAL TID Khaled Meloud Sleik 0.5 mg at 12/26/19 0909 - [START ON 01/07/2020] alendronate 70 mg tab(s) (FOSAMAX) 70 mg ORAL q 2 WEEKS Khaled Meloud Sleik - aspirin 81 mg chewable tab(s) 81 mg ORAL DAILY Khaled Meloud Sleik 81 mg at 12/26/19 0909 - gabapentin 1,200 mg cap(s) (NEURONTIN) 1,200 mg ORAL TID Khaled Meloud Sleik 1,200 mg at 12/26/19 0910 - atorvastatin 80 mg tab(s) (LIPITOR) 80 mg ORAL AT BEDTIME Khaled Meloud Sleik 80 mg at 12/25/19 2142 - lisinopril 10 mg tab(s) (ZESTRIL, PRINIVIL) 10 mg ORAL BID Khaled Meloud Sleik 10 mg at 12/26/19 0916 - hydrOXYchloroQUINE 200 mg tab(s) (PLAQUENIL) 200 mg ORAL BID Khaled Meloud Sleik 200 mg at 12/26/19 0910 - metoprolol tartrate (short acting) 25 mg tab(s) (LOPRESSOR) 25 mg ORAL q 12 H Khaled Meloud Sleik 25 mg at 12/26/19 0916 - mupirocin 2 % ointment (BACTROBAN) TOPICAL BID Yulissa (Director Of Women'S Services Smelter Operator) SALOMÓN Enriquez - nitroglycerin sublingual 0.4 mg tab(s) (NITROQUICK) 0.4 mg SUBLINGUAL PRN Huber Artis - zolpidem 10 mg tab(s) (AMBIEN) 10 mg ORAL HS PRN Alonso Doty 10 mg at 12/25/19 2306 - isosorbide mononitrate ER 30 mg tab(s) (IMDUR) 30 mg ORAL DAILY (6 AM) Alonso Doty 30 mg at 12/26/19 0614 - acetaminophen 325-650 mg tab(s) (TYLENOL) 325-650 mg ORAL q 4 H PRN Alonso Doty 650 mg at 12/25/19 2306 - hydrOXYchloroQUINE (PLAQUENIL) 200 mg tablet, Take 200 mg by mouth twice daily., Disp: , Rfl: , 12/24/2019 at 2099 - methotrexate 2.5 mg tablet, Take 8 tablets by mouth once each week., Disp: 96 tablet, Rfl: 1, 12/23/2019 at 0900 - folic acid 1 mg tablet, Take 1 tablet by mouth once daily., Disp: 90 tablet, Rfl: 1, 12/24/2019 at 0800 - folic acid 1 mg tablet, Take 2 tablets by mouth once daily., Disp: 180 tablet, Rfl: 1, 12/24/2019 at 0800 - celecoxib (CELEBREX) 200 mg capsule, Take 200 mg by mouth twice daily., Disp: , Rfl: , 12/24/2019 at 2099 - pyridoxine, vitamin B6, (VITAMIN B-6) 100 mg tablet, Take 25 mg by mouth once daily. , Disp: , Rfl: , 12/24/2019 at 0800 - DULoxetine (CYMBALTA) 30 mg capsule, Take 30 mg by mouth once daily., Disp: , Rfl: , 12/24/2019 at 2099 - gabapentin (NEURONTIN) 600 mg tablet, Take 1,200 mg by mouth three times daily., Disp: , Rfl: , 12/24/2019 at 2099 - lisinopril (ZESTRIL, PRINIVIL) 10 mg tablet, Take 10 mg by mouth twice daily., Disp: , Rfl: , 12/24/2019 at 2099 - atorvastatin (LIPITOR) 80 mg tablet, Take 80 mg by mouth once daily., Disp: , Rfl: , 12/24/2019 at 2099 - pantoprazole DR (PROTONIX) 20 mg tablet, Take 20 mg by mouth once daily., Disp: , Rfl: - zolpidem (AMBIEN) 10 mg tab, Take by mouth at bedtime as needed., Disp: , Rfl: , 12/24/2019 at 2100 - ALPRAZolam (XANAX) 0.5 mg tablet, Take 0.5 mg by mouth three times daily as needed for Anxiety. , Disp: , Rfl: , 12/24/2019 at 2100 - Cholecalciferol, Vitamin D3, (VITAMIN D) 1,000 unit cap, Take 2,000 Units by mouth once daily. , Disp: , Rfl: , 12/24/2019 at 2100 - cyanocobalamin (B-12 DOTS) 500 mcg tab, Take by mouth once daily., Disp: , Rfl: , 12/24/2019 at 0800 - magnesium oxide 400 mg cap, Take by mouth once daily., Disp: , Rfl: , 12/24/2019 at 2100 - oxyCODONE-acetaminophen (PERCOCET) 5-325 mg tablet, Take 1 tablet by mouth every 8 hours as needed for Pain., Disp: , Rfl: 0 - aspirin(ECOTRIN LOW STRENGTH 81 MG TAB), Take one(1) tablet daily., Disp: , Rfl: 0, 12/24/2019 at 0800 - ACEBUTOLOL 400 MG CAP, Take one(1) tablet two(2) times daily., Disp: , Rfl: 0, 12/24/2019 at 2100 - calcium carbonate/vitamin d3(CALCIUM 500 WITH VITAMIN D 500 MG (1,250 MG)-200 UNIT TAB), Take one(1) tablet two(2) times daily., Disp: , Rfl: 0, 12/23/2019 at 2100 - aspirin 325 mg tablet, Take 325 mg by mouth one time only. Pre cath, Disp: , Rfl: - perflutren lipid microspheres (DEFINITY) 1.1 mg/mL injection (to be provided with echo procedure), Inject 1.3 mL intravenously as directed. Administration Instructions: If no IV access, insert saline lock prior to administering contrast. Discontinue saline lock post exam. If patient has central line or IVAD, may access for administration according to line specific nursing protocol. Once exam is complete, flush line and de-access per line specific nursing protocol. Diluted IV Bolus: Dilute 1.3 ml of Definity with 8.7 ml of preservative-free saline, Disp: 1.3 mL, Rfl: 0 - tofacitinib 5 mg tab, Take 1 tablet by mouth twice daily. (Patient not taking: Reported on 12/03/2019), Disp: 60 tablet, Rfl: 0 - ALENDRONATE SODIUM (FOSAMAX ORAL), Take 70 mg by mouth once each week., Disp: , Rfl: - ALL PURPOSE MULTIVITAMIN-MIN ORAL TAB, Take one(1) tablet daily., Disp: , Rfl: 0 Social History Tobacco Use - Smoking status: Former Smoker - Smokeless tobacco: Never Used - Tobacco comment: quit at least 10 years ago Substance Use Topics - Alcohol use: Yes Comment: 2 times a year - Drug use: No FAMILY HISTORY Problem Relation Age of Onset - Breast Cancer Sister AGE 46 CA OF BONE - Osteoporosis Mother - Breast Cancer Maternal Aunt - Breast Cancer Other MATERNAL COUSIN - Cancer Father LEUKEMIA AGE 56 - Heart Mother CAD,CHF, renal failure - Diabetes Brother - other (RENAL DIS [Other]) Sister DIALYSIS FOR 23 YRS, PAST SURGICAL HISTORY Procedure Laterality Date - ANTERIOR INTERBODY FUSION, CERVICAL 2015 - PAST SURGICAL HISTORY OF colon resected - PAST SURGICAL HISTORY OF cyst knee - ROTATOR CUFF REPAIR Right 2015 ROS: All of the following reviewed and negative except as noted below: see HPI GENERAL: no fever, chills, sweats, weight loss, fatigue, generalized weakness HEENT: no headache, vision changes, eye discomfort, hearing change, ear discomfort, sinus pain, nasal discharge or congestion, oral lesions, soreness, dental problem NECK: no adenopathy, discomfort, change in ROM CHEST: no shortness of breath, dyspnea on exertion, wheezing, cough, sputum production or chest pain HEART: no chest pain, palpitations, syncope ABDOMEN: no nausea, vomiting, constipation, diarrhea, abdominal pain : no dysuria, urgency, frequency, history of stones, incontinence NEURO: no confusion or alteration in consciousness, slurred speech, seizure, focal weakness EXTREMITIES: no new pain, edema, change in ROM HEME: no new adenopathy, bruises, petechiae PSYCH: no depression, anxiety, agitation PAIN PSYCHIATRIC EXAM: GENERAL: alert, oriented to person, place, time JUDGMENT AND INSIGHT: intact APPEARANCE: neatly groomed DEMEANOR: coooperative, not hostile, mistrustful, preoccupied, or demanding ACTIVITY: normal, not hyperactive or hypoactive, no tremors, tics EYE CONTACT: normal SPEECH: normal, rate, volume, articulation, coherence, spontaneity MOOD: normal, without overt sadness, grief, anxiety, appropriate to situation IDEATION: deferred MEMORY: intact PHYSICAL EXAMINATION: GENERAL: well nourished and developed; no acute distress; alert and oriented x 3; intact judgement and insight HEENT: no evidence of trauma; cranial nerves intact; eyes clear EOMI; no hearing deficits apparent; nasal passages unremarkable; throat and mucous membranes clear NECK: supple without lymphadenopathy; no JVD; no thyromegaly CHEST: clear bilaterally to auscultation; normal chest movement; no rales or rhonchi HEART: regular rate and rhythm, normal S1 and S2, no murmurs, clicks, rubs, or gallops ABDOMEN: soft; nondistended; bowel sounds present; no hepatomegaly; no splenomegaly; no tenderness EXTREMITIES: no evidence of clubbing; no cyanosis; no joint effusion; no edema +chronic RA changes feet>hands NEURO: cranial nerves intact; no focal deficits; no confusion; no tremor; sensorium normal SKIN: no rash; no skin breakdown; no decubitus lesions HEME: no bruising; no adenopathy PSYCH: no evidence of depression; no anxiety; no agitation; no apparent hallucinations BP 114/72 Pulse 81 Temp 36.7 ?C (98.1 ?F) (Oral) Resp 16 Ht 162.6 cm (5' 4") Wt 85.5 kg (188 lb 6.4 oz) LMP 12/16/2004 SpO2 96% BMI 32.34 kg/m? BMI 32.34 kg/(m2) ABNORMAL/NEW FINDINGS: NONE RADIOLOGY/DIAGNOSTICS: LABORATORY: CBC: Recent Labs 12/26/19448 WBC 8.83 RBC 3.75* HB 11.9 HCT 32.9* PLT 176* MCV 87.7 MCH 31.7 MPV 9.3* RDW 13.4 CMP: Recent Labs 12/26/19 0449 12/25/19 2205 NA 139 139 K 3.5* 3.6* CHLOR 105 105 CO2 25 26 BUN 8 9 CREAT 0.57* 0.61 GLUC 97 75 TPROT -- 6.2* CA 9.2 9.4 MG -- 2.0 TBILI -- 1.0 ALKPHOS -- 60 ALT -- 19 AST -- 21 ANION 9 8* Heme: No results for input(s): RETICP, ABSRETIC, LD, KELLY, FE, TIBC, TRANSFERSAT in the last 24 hours. 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 A few years ago had been prescribed daily opiates Tylenol 3 25-650 mg every 6 hours PRN Continue home regimen Xanax 0.5 mg at bedtime as needed Gabapentin 1200 mg 3 times daily although patient states she does not always take 3 doses daily Plaquenil 200 mg twice daily Allow Percocet 5/325 1 tab every 4 hours PRN. Patient has noted some increase of her chronic neck pain in the last few days Colace twice daily as needed, Dulcolax as needed Await plans for CABG. Will follow with you. Thank you for this consult MD Irena Skinner, CLIENT SERVICE CONSULTANT, CLIENT SERVICE CONSULTANT 12/26/2019 9:22 AM Signed Printer not operating results below: FVC 3.38 107% FEV1 2.68 111% %FEV1 0.79 103% PEF 346 75% 25-75% 2.77 120% Shonda Rios, Ex Phys 12/26/2019 10:14 AM Signed CARDIAC REHAB 5 METER WALK TEST SERVICE DATE: 12/26/2019 SERVICE TIME: 940 ASSESSMENT: 5 Meter Walk Test 5 Meter Walk Test Completed: Yes Trial 1 # of Seconds: 7.51 Trial 1 Assistive Device: None Trial 2 # of Seconds: 6.82 Trial 2 Assistive Device: None Trial 3 # of Seconds: 6.26 Trial 3 Assistive Device: None SIGNATURE: Shonda Rios, Ex Phys PATIENT NAME: Nadira Benítez DATE: December 26, 2019 TIME: 10:13 AM PAGER/CONTACT #: [phone] Eleno Chavez MD 12/26/2019 12:42 PM Signed For Jose Angel Patient seen, cath films reviewed, patient evaluated and examined. Consult dictated #[id number]. Trying to obtain OR time. Patient agreeable to eval and cabg. Case reviewed with BIOLOGY LABORATORY ASSISTANT as well. Yulissa Enriquez APRN.DEVELOPMENT AND HOUSING DIRECTOR, DEVELOPMENT AND HOUSING DIRECTOR 12/26/2019 1:52 PM Signed CARDIOTHORACIC SURGERY PLAN OF CARE SERVICE DATE: December 26, 2019 SERVICE TIME: 1:50 PM Patient is visited today. I offered the cardiac surgery binder with content reviewed briefly with patient. I went over post-op recovery expectations (ICU, [id number]-[id number] then home) with patient. For pre-op lung function optimization, patient is offered IS. Nutrition consult is placed per ERAS protocol. Pre-op check list review performed: still missing COVID TEST AND T ANDS . Communicated with nursing staff to make sure it is done today for surgery possible tomorrow. Pre-op preparation orders placed, including: NPO, meds(BB, ASA, Tylenol and Neurontin), CHG bath. MRSA result reviewed and treatment order reviewed, blood products ordered x2. Questions and concerns are addressed and emotional support provided.Family at bedside. Patient has no questions at this point. Still have no guarantee OR for tomorrow, but it might be a possibility, therefore, pre-op orders are placed for just in case. Yulissa Enriquez APRN.SALOMÓN Enriquez APRN.SALOMÓN LORENZANA 12/27/2019 12:01 AM Signed [facility] Surgery Pre-Op Open Heart Check List Patient Info: Nadira Benítez 1955 64 year old Bactrim [Sulfamethoxazole-Trimet hoprim] Pre-Op Testing: LABS: CHEMISTRY Sodium (mmol/L) Date Value 12/26/2019 139 12/25/2019 139 12/25/2019 139 Chloride (mmol/L) Date Value 12/26/2019 105 12/25/2019 105 12/25/2019 104 CO2 (mmol/L) Date Value 12/26/2019 25 12/25/2019 26 12/25/2019 26 BUN (mg/dL) Date Value 12/26/2019 8 12/25/2019 9 12/25/2019 8 Creatinine (mg/dL) Date Value 12/26/2019 0.57 12/25/2019 0.61 12/25/2019 0.69 Glucose (mg/dL) Date Value 12/26/2019 97 12/25/2019 75 12/25/2019 95 Magnesium (mg/dL) Date Value 12/25/2019 2.0 Protein, Total (g/dL) Date Value 12/25/2019 6.2 08/17/2016 6.5 07/24/2015 6.6 Calcium (mg/dL) Date Value 12/26/2019 9.2 12/25/2019 9.4 12/25/2019 9.4 Bilirubin, Total (mg/dL) Date Value 12/25/2019 1.0 08/17/2016 1.6 07/24/2015 0.9 Alkaline Phosphatase (U/L) Date Value 12/25/2019 60 08/17/2016 52 07/24/2015 54 ALT (U/L) Date Value 12/25/2019 19 08/17/2016 25 07/24/2015 15 AST (U/L) Date Value 12/25/2019 21 08/17/2016 28 07/24/2015 14 Anion Gap (mmol/L) Date Value 12/26/2019 9 12/25/2019 8 12/25/2019 9 { Lipid Panel LDL Chol, Yulisa Date Value Ref Range Status 04/25/2004 Calculated LDL not valid. 0 - 129 mg/dL Final NT Pro BNP No results found for: PBNP ENDOCRINE Hemoglobin A1C (%) Date Value 12/25/2019 5.0 No results found for: TSHREFL HEMATOLOGY RBC Date Value 12/26/2019 3.75 mil/cmm 12/25/2019 3.81 mil/cmm 08/17/2016 4.26 m/uL Hemoglobin (g/dL) Date Value 08/17/2016 13.0 07/24/2015 12.0 07/02/2014 12.2 HGB (g/dL) Date Value 12/26/2019 11.9 12/25/2019 11.7 Hematocrit (%) Date Value 12/26/2019 32.9 12/25/2019 33.7 08/17/2016 37.9 WBC Date Value 12/26/2019 8.83 thou/cmm 12/25/2019 5.82 thou/cmm 08/17/2016 7.93 k/uL Platelet Count Date Value 12/26/2019 176 thou/cmm 12/25/2019 168 thou/cmm 08/17/2016 223 k/uL COAGULATION No results found for: PTSEC No results found for: INR Anemia Evaluation: Anemic: No Accept Blood: Yes Blood Conservation Committee: No Ferritin: FE+TIBC: Fe Sat: FOBT: Anemia Treatment: na UA pH, Urine Date Value Ref Range Status 12/26/2019 6.5 5.0 - 8.0 Final Specific Berry, Ur Date Value Ref Range Status 12/26/2019 1.013 1.005 - 1.030 Final Glucose, Urine Date Value Ref Range Status 12/26/2019 NEGATIVE Negative mg/dL Final Bilirubin, Urine Date Value Ref Range Status 12/26/2019 NEGATIVE Negative Final Ketones, Urine Date Value Ref Range Status 12/26/2019 NEGATIVE Negative mg/dL Final Protein, Urine Date Value Ref Range Status 12/26/2019 NEGATIVE Negative mg/dL Final Leukocytes Esterase Date Value Ref Range Status 12/26/2019 TRACE (A) Negative Final Bacteria, Urine Date Value Ref Range Status 12/26/2019 NONE None Final Type AND Screen: Results for NADIRA BENÍTEZ ( ) as of 12/26/2019 23:59 Ref. Range 12/26/2019 20:34 ABO Group Unknown O RH Type Unknown Negative Antibody Screen Latest Ref Range: NEGATIVE NEGATIVE Blood Bank Comment Unknown See Below Xmatch Unit 1 Unknown see below Xmatch Unit 2 Unknown see below RBC Cross match: 2 unites MRSA Screen: negative COVID: In process, was collected on 12/25 @ 3:07 pm Chronic Lung Disease: No FEVI: 103 %. DLCO: ABG: ETHAN: No IMAGING/PROCEDURES CXR: RESULT: Lines, tubes, and devices: ?practice architect leads. Lungs and pleura: ?No consolidation. No lung mass. No pleural effusion. No pneumothorax. Cardiomediastinal silhouette: ?Normal cardiomediastinal silhouette. Bones and soft tissues: ?The patient has had previous cervical spine fusion. Cardiac Catheterization: Angiography: ? LEFT MAIN: Normal ? LEFT CIRCUMFLEX: Severe distal 90% ? LEFT ANTERIOR DESCENDING: Severe Proximal 99% Heavy calcified LAD with moderate disease in the D1 ? RIGHT CORONARY ARTERY: Mild diffuse disease ? LEFT VENTRICULOGRAPHY: Normal LV size and function LVEF= 60% At this point, the procedure was terminated. All diagnostic wires and catheters were removed. ? 2D Echo: CONCLUSIONS: - Exam indication: Shortness of Breath - The left ventricle is normal in size. Left ventricular systolic function is normal. EF = 62 ? 5% (2D biplane) Grade I left ventricular diastolic dysfunction. - The right ventricle is normal in size. Right ventricular systolic function is normal. - The left atrial cavity is mildly dilated. - There are no significant valvular abnormalities. - The patient has not had a prior CC echocardiographic exam for comparison. 5 Meter Walk Test: 5 Meter Walk Test Completed: Yes Trial 1 # of Seconds: 7.51 Trial 1 Assistive Device: None Trial 2 # of Seconds: 6.82 Trial 2 Assistive Device: None Trial 3 # of Seconds: 6.26 Trial 3 Assistive Device: None OPTIONAL TESTINGS: Carotid U/S: RIGHT SIDE Common carotid artery: Plaque visualized without evidence of hemodynamically significant stenosis. Internal carotid artery: Elevated velocities consistent with a 60-79% stenosis noted, but minimal plaque is visualized. Tortious distal right ICA. External carotid artery: Elevated velocities and plaque noted. Vertebral artery: Patent and antegrade flow noted. LEFT SIDE Common carotid artery: Patent. Internal carotid artery: 0-19% stenosis. External carotid artery: Patent. Vertebral artery: Patent and antegrade flow noted Lower EXT [place]: Palmar Arch: Vein Mapping: Dental Clearance: CT Chest: NA Medications: Blood thinners: Patient is on following blood thinners: Aspirin -Yes, dose 81 mg, stopped No, date:DOS Beta Chuy: Last dose of beta chuy taken: DOS Tylenol 1000 mg DOS: Yes Neurontin 200 mg DOS: Yes DARSHAN/ARB: Stop 24 hours preop Yes Last dose date 12/25 Steroids: No Chronic Immunosuppressive drugs: Yes, RA meds: Methotrexate Heparin stop time addressed: NA SGLT 2 inhibitor hold 3-4 days: No Implantable Device: No NA Turned off date: NA Perioperative Transfusion risk Advanced age No Preoperative anemia No Non-CABG surgery No Preoperative anticoagulation No Clotting abnormalities No Female gender Yes Small body habitus No Renal insufficiency No IDDM No Sepsis No Liver disease No Post-operative Wound Healing - Vest recommended Yes (Yes to any one of the below requires a post thorax vest) Risk Factors: Obesity Yes DM No Renal Dx No COPD No Bilateral RAMY No Dietitian consultation: Yes Drinks provided (outpatient setting): No CLEARANCES NEEDED Pulmonary: No Hematology: No Nephrology No Vascular surgery No Other No Yulissa Enriquez APRN.SALOMÓN Miller RN, RN 12/26/2019 2:10 PM Signed CARE MANAGEMENT: ASSESSMENT AND DISCHARGE PLAN SERVICE DATE: December 26, 2019 SERVICE TIME: 2:05 PM PRIMARY CARE PHYSICIAN: Maria Teresa Goff DO ADMISSION STATUS: Inpatient Needs Prior to Discharge: Facility or Agency Choices;Home Care Order;Pharmacy Bedside Delivery;Discharge Prescriptions MEDICAL: [email or web address] MEDICARE 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 Last discharge within 30 days: No Advance Directive: Current Advance Directive: None Account Associate Attempted to Assist with AD Completion: No Health LiteracyHow often do you need to have someone help you when you read instructions, pamphlets, or other written material from your doctor or pharmacy? : 1 - Never How confident are you filling out medical forms by yourself?: 1 - Extremely If Patient scores > 3 on either question, the following interventions were put into place:: Patient did not score > 3 on either question. Baseline Mental Status Prior to this Illness what was the patient's Baseline Mental Status?: Alert AND Oriented Prior to this illness, has anyone described the patient having any of the following behaviors?: Not Applicable Relationship of the informant to the patient:: Self Functional Status: Independent Does Patient Currently Receive Any Community Services or Home Care?: None Equipment Prior to Admission: None SOCIAL: Living Arrangements: Home Lives With: Son(and dtr-in-law and 2 grandkids) Financial Resources: DisabledPrimary Contact: Extended Emergency Contact Information Primary Emergency Contact: Rickey Benítez Address: [address] [place] [address] Relation: Son Secondary Emergency Contact: Robyn Benítez Mobile Relation: Daughter Supportive Patient Contact:: Yes Contact Resources: Family Family Name/Phone: Robyn (dtr) [phone] Social Needs Food insecurity Worry: Never true Inability: Never true Resources Needed: No Social Needs Financial resource strain: Not hard at all Social Needs Transportation needs Medical: No Non-medical: No Caregiver AssessmentCaregiver is ready, willing and able to meet the patient's needs as recommended by the inter-professional team:: No Caregiver needed Does the patient have an acute stroke diagnosis, or has the patient had a stroke during this admission?: No Patient's transition needs and plan for meeting these needs: Home with HC Patient's perception of need for this admission: Needs surgery Medication Adherance I am convinced of the importance of my prescription medication: 0 - Agree Completely I worry that my prescription medication will do more harm than good to me : 0 - Disagree Mostly I feel financially burdened by my [id number] expenses for my prescription medication:: 0 - Disagree Mostly Risk Score: 0 Patient is categorized as: Low risk < 2 Are you interested in bedside delivery of your medications? Yes Is Patient Psychosocially Complex?: No ASSESSMENT AND PLAN: Medical Needs: Medical Needs: Two or more chronic diseases Psychosocial Needs: Psychosocial Needs: None FREEDOM OF CHOICE EXPLAINED: [place] of Choice Given: Yes Level of Care Discussed: Home Care Financial Disclosure Provided: Yes Provider List: Home Care Provider list within the patient's requested geographic area shared with the patient/family: Yes within: 10 miles of zip code: [address] Quality and resource use metrics shared with the patient that are relevant to the patient's goals of care and treatment preferences:: Yes Metrics: Skin Integrity;Functional Status POTENTIAL TRANSITION PLANS Home;Home Care From home. Lives with son and dtr-in-law and 2 grandkids in in-law suite downstairs. 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 (+) PCP. (+) Rx. Fills scripts at [facility] in [place]. Likely CABG on . 12/26. Plans to return home after discharge as son works from home and is able to be with her. Referral to [facility] who have accepted for homecare. SIGNATURE: Elba Miller RN PATIENT NAME: Nadira Benítez DATE: December 26, 2019 TIME: 2:05 PM PAGER/CONTACT #: [phone], ILENE, RD 12/26/2019 3:11 PM Signed NUTRITION THERAPY INITIAL ASSESSMENT SERVICE DATE: 12/26/2019 SERVICE TIME: 3:06 PM Nutrition Assessment: Recommended Malnutrition Diagnosis: No Malnutrition Identified Nutrition Diagnosis: Problem: Increased nutrient needs Related to: Acute illness(pending surgery, ERAS protocol) As evidenced by: Medical condition Estimated kilocalorie needs: 5201-7588 Calorie Calculation Method: 15-20 kcals/kg Estimated protein needs (grams): 54-81 Grams protein determined by: 1.0-1.5 g/kg Care Plan: Continue current diet Supplements: Impact AR 1) will order Impact Advanced Recovery 2x daily Monitor and Evaluation: Meet greater than 75% of estimated needs;Monitor fluid/electrolyte balance;Monitor labs, I/Os, vital signs, weight;Monitor bowel function HPI: 64 yo female presents with angina, SOB, heart cath and now pending CABG. Active Hospital Problems Diagnosis Date Noted - CAD (coronary artery disease) 12/25/2019 Intake History: Nutrition Intake Prior to Admission: Greater than 75% estimated energy needs over: day 1 of admission Current Diet: DIET HEART HEALTHY DIET NPO Anthropometrics: Height: 162.6 cm (5' 4") Weight: 85.5 kg (188 lb 6.4 oz) Dosing Weight: 86 kg (189 lb 9.5 oz) Body mass index is 32.34 kg/m?. Obese Weight change percentage over time: pt endorses no changes in wt, She states she has recently attempted to lose a few pounds once she was informed she "may have heart blockage" at outpatient visit Physical Exam: Subcutaneous fat loss: No fat loss Muscle loss: No muscle loss Potential micronutrient deficiency: No deficiency identified Edema/Ascites: No edema GI Symptoms: None Functional Status: Not related to malnutrition status Potential Signs of Inflammation: Heide-operative period;Chronic condition SIGNATURE: Elia Grider RD, LD PATIENT NAME: Nadira Benítez DATE: December 26, 2019 TIME: 3:06 PM PAGER: [phone] Humberto Tate MD 12/26/2019 3:12 PM Signed HISTORY AND PHYSICAL EXAMINATION SERVICE DATE: 12/26/2019 SERVICE TIME: 12:00 pm PRIMARY CARE PHYSICIAN: Maria Teresa Goff DO Subjective HPI 64 years old admitted post cardiac cath for CABG Severe LAD and Circumflex disease Exertional shortness of breath and angina of effort Normal LV size and function Await CABG and work up FUNCTIONAL STATUS: Independent PAST MEDICAL HISTORY Diagnosis Date - Anemia, unspecified - Cardiac dysrhythmia, unspecified - Cervical vertebral fusion 2014 - Dysthymic disorder - Esophageal reflux - Generalized osteoarthrosis, unspecified site knees - Lumbago PAST SURGICAL HISTORY Procedure Laterality Date - ANTERIOR INTERBODY FUSION, CERVICAL 2015 - PAST SURGICAL HISTORY OF colon resected - PAST SURGICAL HISTORY OF cyst knee - ROTATOR CUFF REPAIR Right 2015 FAMILY HISTORY Problem Relation Age of Onset - Breast Cancer Sister AGE 46 CA OF BONE - Osteoporosis Mother - Breast Cancer Maternal Aunt - Breast Cancer Other MATERNAL COUSIN - Cancer Father LEUKEMIA AGE 56 - Heart Mother CAD,CHF, renal failure - Diabetes Brother - other (RENAL DIS [Other]) Sister DIALYSIS FOR 23 YRS, Social History Tobacco Use - Smoking status: Former Smoker - Smokeless tobacco: Never Used - Tobacco comment: quit at least 10 years ago Substance Use Topics - Alcohol use: Yes Comment: 2 times a year - Drug use: No - hydrOXYchloroQUINE (PLAQUENIL) 200 mg tablet, Take 200 mg by mouth twice daily., Disp: , Rfl: , 12/24/2019 at 2100 - methotrexate 2.5 mg tablet, Take 8 tablets by mouth once each week., Disp: 96 tablet, Rfl: 1, 12/23/2019 at 0900 - folic acid 1 mg tablet, Take 1 tablet by mouth once daily., Disp: 90 tablet, Rfl: 1, 12/24/2019 at 0800 - folic acid 1 mg tablet, Take 2 tablets by mouth once daily., Disp: 180 tablet, Rfl: 1, 12/24/2019 at 0800 - celecoxib (CELEBREX) 200 mg capsule, Take 200 mg by mouth twice daily., Disp: , Rfl: , 12/24/2019 at 2100 - pyridoxine, vitamin B6, (VITAMIN B-6) 100 mg tablet, Take 25 mg by mouth once daily. , Disp: , Rfl: , 12/24/2019 at 0800 - DULoxetine (CYMBALTA) 30 mg capsule, Take 30 mg by mouth once daily., Disp: , Rfl: , 12/24/2019 at 2099 - gabapentin (NEURONTIN) 600 mg tablet, Take 1,200 mg by mouth three times daily., Disp: , Rfl: , 12/24/2019 at 2099 - lisinopril (ZESTRIL, PRINIVIL) 10 mg tablet, Take 10 mg by mouth twice daily., Disp: , Rfl: , 12/24/2019 at 2099 - atorvastatin (LIPITOR) 80 mg tablet, Take 80 mg by mouth once daily., Disp: , Rfl: , 12/24/2019 at 2099 - pantoprazole DR (PROTONIX) 20 mg tablet, Take 20 mg by mouth once daily., Disp: , Rfl: - zolpidem (AMBIEN) 10 mg tab, Take by mouth at bedtime as needed., Disp: , Rfl: , 12/24/2019 at 2100 - ALPRAZolam (XANAX) 0.5 mg tablet, Take 0.5 mg by mouth three times daily as needed for Anxiety. , Disp: , Rfl: , 12/24/2019 at 2100 - Cholecalciferol, Vitamin D3, (VITAMIN D) 1,000 unit cap, Take 2,000 Units by mouth once daily. , Disp: , Rfl: , 12/24/2019 at 2100 - cyanocobalamin (B-12 DOTS) 500 mcg tab, Take by mouth once daily., Disp: , Rfl: , 12/24/2019 at 0800 - magnesium oxide 400 mg cap, Take by mouth once daily., Disp: , Rfl: , 12/24/2019 at 2100 - oxyCODONE-acetaminophen (PERCOCET) 5-325 mg tablet, Take 1 tablet by mouth every 8 hours as needed for Pain., Disp: , Rfl: 0 - aspirin(ECOTRIN LOW STRENGTH 81 MG TAB), Take one(1) tablet daily., Disp: , Rfl: 0, 12/24/2019 at 0800 - ACEBUTOLOL 400 MG CAP, Take one(1) tablet two(2) times daily., Disp: , Rfl: 0, 12/24/2019 at 2100 - calcium carbonate/vitamin d3(CALCIUM 500 WITH VITAMIN D 500 MG (1,250 MG)-200 UNIT TAB), Take one(1) tablet two(2) times daily., Disp: , Rfl: 0, 12/23/2019 at 2100 - aspirin 325 mg tablet, Take 325 mg by mouth one time only. Pre cath, Disp: , Rfl: - perflutren lipid microspheres (DEFINITY) 1.1 mg/mL injection (to be provided with echo procedure), Inject 1.3 mL intravenously as directed. Administration Instructions: If no IV access, insert saline lock prior to administering contrast. Discontinue saline lock post exam. If patient has central line or IVAD, may access for administration according to line specific nursing protocol. Once exam is complete, flush line and de-access per line specific nursing protocol. Diluted IV Bolus: Dilute 1.3 ml of Definity with 8.7 ml of preservative-free saline, Disp: 1.3 mL, Rfl: 0 - tofacitinib 5 mg tab, Take 1 tablet by mouth twice daily. (Patient not taking: Reported on 12/03/2019), Disp: 60 tablet, Rfl: 0 - ALENDRONATE SODIUM (FOSAMAX ORAL), Take 70 mg by mouth once each week., Disp: , Rfl: - ALL PURPOSE MULTIVITAMIN-MIN ORAL TAB, Take one(1) tablet daily., Disp: , Rfl: 0 ALLERGIES Allergen Reactions - Bactrim [Sulfametho* Rash COMPLETE REVIEW OF SYSTEMS: Review of Systems Constitutional: Negative for activity change, appetite change, diaphoresis, fatigue and fever. HENT: Negative for congestion, dental problem, drooling, ear discharge, ear pain and facial swelling. Eyes: Negative for photophobia, pain, discharge, redness, itching and visual disturbance. Respiratory: Positive for shortness of breath and dyspnea . Negative for apnea, cough, choking, chest tightness, wheezing, stridor and severe COPD. Cardiovascular: Positive for chest pain. Negative for palpitations, leg swelling and CHF. Gastrointestinal: Negative for abdominal distention, abdominal pain and ascites. Endocrine: Negative for cold intolerance, heat intolerance, polydipsia, polyphagia, DM on oral agent, DM w/ diet control and DM on insulin. Genitourinary: Negative for difficulty urinating, dyspareunia, dysuria, enuresis, flank pain and genital sores. Musculoskeletal: Positive for arthralgias. Negative for gait problem, joint swelling and myalgias. Skin: Negative for color change, pallor, rash and wound. Allergic/Immunologic: Negative for environmental allergies, food allergies and immunocompromised state. Neurological: Negative for dizziness, seizures, facial asymmetry, speech difficulty, light-headedness, numbness and headaches. Hematological: Negative for adenopathy, bleeding / clotting disorders , H/O transfusions and disseminated cancer . Does not bruise/bleed easily. Psychiatric/Behavioral: Negative for agitation, behavioral problems, confusion, decreased concentration and dysphoric mood. Objective PHYSICAL EXAM: Physical Exam Constitutional: She is oriented to person, place, and time. She appears well-developed and well-nourished. No distress. HENT: Head: Normocephalic and atraumatic. Right Ear: External ear normal. Left Ear: External ear normal. Mouth/Throat: No oropharyngeal exudate. Eyes: Pupils are equal, round, and reactive to light. Conjunctivae and EOM are normal. Right eye exhibits no discharge. Left eye exhibits no discharge. Neck: No JVD present. No tracheal deviation present. No thyromegaly present. Pulmonary/Chest: No stridor. No respiratory distress. She has no wheezes. She has no rales. She exhibits no tenderness. Abdominal: She exhibits no distension and no mass. There is no abdominal tenderness. There is no rebound and no guarding. Musculoskeletal: General: No tenderness, deformity or edema. Lymphadenopathy: She has no cervical adenopathy. Neurological: She is alert and oriented to person, place, and time. She displays normal reflexes. No cranial nerve deficit. She exhibits normal muscle tone. Coordination normal. Skin: No rash noted. She is not diaphoretic. No erythema. No pallor. Psychiatric: She has a normal mood and affect. Her behavior is normal. Judgment and thought content normal. BP 123/56 Pulse (!) 57 Temp 36.5 ?C (97.7 ?F) (Oral) Resp 16 Ht 162.6 cm (5' 4") Wt 85.5 kg (188 lb 6.4 oz) LMP 12/16/2004 SpO2 96% BMI 32.34 kg/m? Body mass index is 32.34 kg/m?. DATA: Diagnostic tests reviewed for today's visit: Most recent labs and imaging results. Assessment/Plan Active Problems: CAD (coronary artery disease) POA: Yes Assessment AND Plan: Severe CAD need CABG Resolved Problems: * No resolved hospital problems. * SIGNATURE: Humberto aTte MD PATIENT NAME: Nadira Benítez DATE: December 26, 2019 TIME: 3:07 PM PAGER/CONTACT #: [phone] Eleno Chavez MD 12/26/2019 3:46 PM Signed Patient seen again today as OR has become available. Seen with daughter at bedside. Surgical Discussion: I have discussed the benefits, risks, indications, and alternatives to surgery with the patient. Risks discussed include but are not limited to infection, bleeding, cardiac dysrhythmias, myocardial infarction, stroke, , blood clots, pneumonia, wound complications, wound infection, blood transfusion with associated risks of AIDS or Hepatitis, and the occasional need for reoperation for bleeding or other complications. Expected OR, ICU, hospitalization, and home recovery times were discussed. The patient was also made aware of 1+/mild MR on previous echo which does not need addressed surgically and also found CT narrowing of 60-79% with bruit which is asymptomatic and may increase periop stroke risk, but needs no intervention at this time, but will need to followup with vascular surgery in future/6mnths. The patient and her daughter state they understand these things, have no further questions, and wish to proceed in AM. Soila Cordova MD 12/27/2019 7:46 AM Incomplete Name: NADIRA BENÍTEZ Age: [age] year old PAIN MANAGEMENT: Seronegative rheumatoid arthritis, chronic neck pain, Neuropathy, multivessel coronary artery disease with plan for CABG Pain Description: Patient denied chest pain. Complains of chronic RA pain in her hands, shoulders, neck, hips and knees. Worse with activity Interval HPI: plan for CABG this AM; daughter at bedside 24H Comfort Meds: Tylenol 325-650 mg x 0 Xanax 0.5 mg X 3 Gabapentin 1200 mg x 3 Plaquenil 200 mg twice daily Percocet 5/325 one x 1 Subjective HPI: 64-year-old female with history of hypertension, hyperlipidemia, prior tobacco abuse, strong family history of coronary artery disease, seronegative rheumatoid arthritis, cervical degenerative disc disease, neuropathy, anxiety with insomnia, depression presented 12/24 With exertional angina and dyspnea. Cardiac cath demonstrated multivessel coronary artery disease; she has been referred for consideration for CABG. Patient has chronic multifactorial pain predominantly secondary to seronegative rheumatoid arthritis for the last 10 years. She recently started going to Dr. Hong at [facility] in [place]. Pain regimen includes methotrexate and Plaquenil. She also has chronic pain from cervical degenerative disc disease for which she underwent 2 prior cervical fusions. She has tried medical marijuana but states vaping hurts her chest. Pain regimen includes gabapentin 1200 mg up to 3 times daily for neuropathy bilateral feet of unknown etiology. She previously had been going to Dr. French in [place] for pain management and had been on high-dose opiates including fentanyl patches, Percocet but she has not been to its program for 2 more than 2 years. She had numerous injections which were not effective Patient lives with her son and [id number] and 2 granddaughters. She quit tobacco in her 30s; previous 10-year pack history. She uses alcohol rarely. She denies illicit meds. OARRS Review: 76 prescriptions from 3 prescribers mostly for medical marijuana which she has not used for a month. Most recent prescriptions other than THC: 12/13 Ambien 10 mg #30 12/13 Xanax 0.5 mg #90 10/24 gabapentin 600 mg #540 (90ds) Current Facility-Administered Medications Medication Dose Route Frequency Provider Last Rate Last Dose - [MAR Hold due to Transfer] oxyCODONE-acetaminophen 5-325 mg 1 tablet (PERCOCET) 1 tablet ORAL q 4 H PRN Soila K Scantling 1 tablet at 12/26/19 09 - [MAR Hold due to Transfer] ALPRAZolam 0.5 mg tab(s) (XANAX) 0.5 mg ORAL TID Khaled Meloud Sleik 0.5 mg at 12/26/192027 - [MAR Hold due to Transfer] docusate sodium 100 mg cap(s) (COLACE) 100 mg ORAL BID PRN Soila K Scantling - [MAR Hold due to Transfer] bisacodyl EC 10 mg tab(s) (DULCOLAX) 10 mg ORAL BID PRN Soila K Scantling - [MAR Hold due to Transfer] hydrALAZINE 10 mg injection (APRESOLINE) 10 mg INTRAVENOUS q 6 H PRN Weina (Director Of Women'S Services [employer]elter Operator) SALOMÓN Enriquez - [MAR Hold due to Transfer] alendronate 70 mg tab(s) (FOSAMAX) 70 mg ORAL q 2 WEEKS Khaled Meloud Sleik - [MAR Hold due to Transfer] aspirin 81 mg chewable tab(s) 81 mg ORAL DAILY Khaled Meloud Sleik 81 mg at 12/27/19 0546 - [MAR Hold due to Transfer] gabapentin 1,200 mg cap(s) (NEURONTIN) 1,200 mg ORAL TID Khaled Meloud Sleik 1,200 mg at 12/27/19 0547 - [MAR Hold due to Transfer] atorvastatin 80 mg tab(s) (LIPITOR) 80 mg ORAL AT BEDTIME Khaled Meloud Sleik 80 mg at 12/26/192026 - [MAR Hold due to Transfer] hydrOXYchloroQUINE 200 mg tab(s) (PLAQUENIL) 200 mg ORAL BID Khaled Meloud Sleik 200 mg at 12/26/192027 - [MAR Hold due to Transfer] metoprolol tartrate (short acting) 25 mg tab(s) (LOPRESSOR) 25 mg ORAL q 12 H Humberto Mcpherson Slekassidy 25 mg at 12/27/19 0546 - [MAR Hold due to Transfer] mupirocin 2 % ointment (BACTROBAN) TOPICAL 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) SALOMÓN Enriquez - [MAR Hold due to Transfer] nitroglycerin sublingual 0.4 mg tab(s) (NITROQUICK) 0.4 mg SUBLINGUAL PRN Garyjeannine Artis - [MAR Hold due to Transfer] zolpidem 10 mg tab(s) (AMBIEN) 10 mg ORAL HS PRN Alonso Doty 10 mg at 12/26/19 2305 - [MAR Hold due to Transfer] isosorbide mononitrate ER 30 mg tab(s) (IMDUR) 30 mg ORAL DAILY (6 AM) Alonso Doty 30 mg at 12/27/19 0600 - [MAR Hold due to Transfer] acetaminophen 325-650 mg tab(s) (TYLENOL) 325-650 mg ORAL q 4 H PRN Alonso Doty 650 mg at 12/27/19 0547 - hydrOXYchloroQUINE (PLAQUENIL) 200 mg tablet, Take 200 mg by mouth twice daily., Disp: , Rfl: , 12/24/2019 at 2100 - methotrexate 2.5 mg tablet, Take 8 tablets by mouth once each week., Disp: 96 tablet, Rfl: 1, 12/23/2019 at 0900 - folic acid 1 mg tablet, Take 1 tablet by mouth once daily., Disp: 90 tablet, Rfl: 1, 12/24/2019 at 0800 - folic acid 1 mg tablet, Take 2 tablets by mouth once daily., Disp: 180 tablet, Rfl: 1, 12/24/2019 at 0800 - celecoxib (CELEBREX) 200 mg capsule, Take 200 mg by mouth twice daily., Disp: , Rfl: , 12/24/2019 at 2100 - pyridoxine, vitamin B6, (VITAMIN B-6) 100 mg tablet, Take 25 mg by mouth once daily. , Disp: , Rfl: , 12/24/2019 at 0800 - DULoxetine (CYMBALTA) 30 mg capsule, Take 30 mg by mouth once daily., Disp: , Rfl: , 12/24/2019 at 2100 - gabapentin (NEURONTIN) 600 mg tablet, Take 1,200 mg by mouth three times daily., Disp: , Rfl: , 12/24/2019 at 2100 - lisinopril (ZESTRIL, PRINIVIL) 10 mg tablet, Take 10 mg by mouth twice daily., Disp: , Rfl: , 12/24/2019 at 2100 - atorvastatin (LIPITOR) 80 mg tablet, Take 80 mg by mouth once daily., Disp: , Rfl: , 12/24/2019 at 2100 - pantoprazole DR (PROTONIX) 20 mg tablet, Take 20 mg by mouth once daily., Disp: , Rfl: - zolpidem (AMBIEN) 10 mg tab, Take by mouth at bedtime as needed., Disp: , Rfl: , 12/24/2019 at 2100 - ALPRAZolam (XANAX) 0.5 mg tablet, Take 0.5 mg by mouth three times daily as needed for Anxiety. , Disp: , Rfl: , 12/24/2019 at 2100 - Cholecalciferol, Vitamin D3, (VITAMIN D) 1,000 unit cap, Take 2,000 Units by mouth once daily. , Disp: , Rfl: , 12/24/2019 at 2100 - cyanocobalamin (B-12 DOTS) 500 mcg tab, Take by mouth once daily., Disp: , Rfl: , 12/24/2019 at 0800 - magnesium oxide 400 mg cap, Take by mouth once daily., Disp: , Rfl: , 12/24/2019 at 2100 - oxyCODONE-acetaminophen (PERCOCET) 5-325 mg tablet, Take 1 tablet by mouth every 8 hours as needed for Pain., Disp: , Rfl: 0 - aspirin(ECOTRIN LOW STRENGTH 81 MG TAB), Take one(1) tablet daily., Disp: , Rfl: 0, 12/24/2019 at 0800 - ACEBUTOLOL 400 MG CAP, Take one(1) tablet two(2) times daily., Disp: , Rfl: 0, 12/24/2019 at 2100 - calcium carbonate/vitamin d3(CALCIUM 500 WITH VITAMIN D 500 MG (1,250 MG)-200 UNIT TAB), Take one(1) tablet two(2) times daily., Disp: , Rfl: 0, 12/23/2019 at 2100 - aspirin 325 mg tablet, Take 325 mg by mouth one time only. Pre cath, Disp: , Rfl: - perflutren lipid microspheres (DEFINITY) 1.1 mg/mL injection (to be provided with echo procedure), Inject 1.3 mL intravenously as directed. Administration Instructions: If no IV access, insert saline lock prior to administering contrast. Discontinue saline lock post exam. If patient has central line or IVAD, may access for administration according to line specific nursing protocol. Once exam is complete, flush line and de-access per line specific nursing protocol. Diluted IV Bolus: Dilute 1.3 ml of Definity with 8.7 ml of preservative-free saline, Disp: 1.3 mL, Rfl: 0 - tofacitinib 5 mg tab, Take 1 tablet by mouth twice daily. (Patient not taking: Reported on 12/03/2019), Disp: 60 tablet, Rfl: 0 - ALENDRONATE SODIUM (FOSAMAX ORAL), Take 70 mg by mouth once each week., Disp: , Rfl: - ALL PURPOSE MULTIVITAMIN-MIN ORAL TAB, Take one(1) tablet daily., Disp: , Rfl: 0 Social History Tobacco Use - Smoking status: Former Smoker - Smokeless tobacco: Never Used - Tobacco comment: quit at least 10 years ago Substance Use Topics - Alcohol use: Yes Comment: 2 times a year - Drug use: No FAMILY HISTORY Problem Relation Age of Onset - Cancer Father LEUKEMIA AGE 56 - Osteoporosis Mother - Heart Mother CAD,CHF, renal failure - Breast Cancer Sister AGE 46 CA OF BONE - Breast Cancer Maternal Aunt - Breast Cancer Other MATERNAL COUSIN - Diabetes Brother - other (RENAL DIS) Sister DIALYSIS FOR 23 YRS, PAST SURGICAL HISTORY Procedure Laterality Date - ANTERIOR INTERBODY FUSION, CERVICAL 2014 - PAST SURGICAL HISTORY OF colon resected - PAST SURGICAL HISTORY OF cyst knee - ROTATOR CUFF REPAIR Right 2015 ROS: All of the following reviewed and negative except as noted below: see HPI GENERAL: no fever, chills, sweats, weight loss, fatigue, generalized weakness HEENT: no headache, vision changes, eye discomfort, hearing change, ear discomfort, sinus pain, nasal discharge or congestion, oral lesions, soreness, dental problem NECK: no adenopathy, discomfort, change in ROM CHEST: no shortness of breath, dyspnea on exertion, wheezing, cough, sputum production or chest pain HEART: no chest pain, palpitations, syncope ABDOMEN: no nausea, vomiting, constipation, diarrhea, abdominal pain : no dysuria, urgency, frequency, history of stones, incontinence NEURO: no confusion or alteration in consciousness, slurred speech, seizure, focal weakness EXTREMITIES: no new pain, edema, change in ROM HEME: no new adenopathy, bruises, petechiae PSYCH: no depression, anxiety, agitation PAIN PSYCHIATRIC EXAM: GENERAL: alert, oriented to person, place, time JUDGMENT AND INSIGHT: intact APPEARANCE: neatly groomed DEMEANOR: coooperative, not hostile, mistrustful, preoccupied, or demanding ACTIVITY: normal, not hyperactive or hypoactive, no tremors, tics EYE CONTACT: normal SPEECH: normal, rate, volume, articulation, coherence, spontaneity MOOD: normal, without overt sadness, grief, anxiety, appropriate to situation IDEATION: deferred MEMORY: intact PHYSICAL EXAMINATION: GENERAL: well nourished and developed; no acute distress; alert and oriented x 3; intact judgement and insight HEENT: no evidence of trauma; cranial nerves intact; eyes clear EOMI; no hearing deficits apparent; nasal passages unremarkable; throat and mucous membranes clear NECK: supple without lymphadenopathy; no JVD; no thyromegaly CHEST: clear bilaterally to auscultation; normal chest movement; no rales or rhonchi HEART: regular rate and rhythm, normal S1 and S2, no murmurs, clicks, rubs, or gallops ABDOMEN: soft; nondistended; bowel sounds present; no hepatomegaly; no splenomegaly; no tenderness EXTREMITIES: no evidence of clubbing; no cyanosis; no joint effusion; no edema +chronic RA changes feet>hands NEURO: cranial nerves intact; no focal deficits; no confusion; no tremor; sensorium normal SKIN: no rash; no skin breakdown; no decubitus lesions HEME: no bruising; no adenopathy PSYCH: no evidence of depression; no anxiety; no agitation; no apparent hallucinations BP 97/82 Pulse 71 Temp 36.7 ?C (98.1 ?F) (Temporal) Resp 16 Ht 162.6 cm (5' 4.02") Wt 83.5 kg (184 lb 1.6 oz) LMP 12/16/2004 SpO2 97% BMI 31.58 kg/m? BMI 31.58 kg/(m2) ABNORMAL/NEW FINDINGS: NONE RADIOLOGY/DIAGNOSTICS: LABORATORY: CBC: No results for input(s): WBC, RBC, HB, HCT, PLT, MCV, MCH, MPV, RDW in the last 24 hours. CMP: No results for input(s): NA, K, CHLOR, CO2, BUN, CREAT, GLUC, TPROT, CA, MG, ALBUMIN, TBILI, ALKPHOS, ALT, AST, ANION in the last 24 hours. Heme: No results for input(s): RETICP, ABSRETIC, LD, KELLY, FE, TIBC, TRANSFERSAT in the last 24 hours. ASSESSMENT ACTIVE PROBLEM LIST Cardiac Dysrhythmia, Unspecified Dysthymic Disorder Anemia, Unspecified Generalized Osteoarthrosis, Unspecified Site Lumbago Sprain of Foot, Unspecified Site Seronegative Rheumatoid Arthritis (Hcc) Angina of Effort (Hcc) Cad (Coronary Artery Disease) PLAN: Plan for CABG this AM Opiate naive prior to admission. A few years ago had been prescribed daily opiates for chronic multifactorial pain including RA Tylenol 325-650 mg every 6 hours PRN Continue home regimen Xanax 0.5 mg at bedtime as needed Gabapentin 1200 mg 3 times daily although patient states she does not always take 3 doses daily Plaquenil 200 mg twice daily Allow Percocet 5/325 1 tab every 4 hours PRN. Patient has noted some increase of her chronic neck pain in the last few days Colace twice daily as needed, Dulcolax as needed Await plans for CABG. Will follow with you. Thank you for this consult MD Charlie Skinner MD 12/27/2019 7:25 AM Signed ANESTHESIOLOGY DAY OF SURGERY NOTE SERVICE DATE: 12/27/2019 SERVICE TIME: 7:23 AM : 1955 Procedure(s) (LRB): BYPASS GRAFT ARTERY CORONARY ON-PUMP THREE CORONARY ARTERIAL GRAFTS (N/A) Surgeon(s): Eleno Chavez Estimated body mass index is 31.58 kg/m? as calculated from the following: Height as of this encounter: 162.6 cm (5' 4.02"). Weight as of this encounter: 83.5 kg (184 lb 1.6 oz). Most recent hematocrit and potassium results: Hematocrit 32.9 12/26/2019 Potassium 3.5 12/26/2019 ANES DOS/PREOP NOTE: Vitals: 12/26/19 2000 12/26/19 2307 12/27/19 0545 12/27/19 0635 BP: 131/68 130/67 124/84 Pulse: 67 65 71 Resp: 16 18 16 Temp: 36.5 ?C (97.7 ?F) 36.6 ?C (97.9 ?F) 36.6 ?C (97.9 ?F) TempSrc: Oral Oral Oral SpO2: 97% 99% 95% Weight: 83.5 kg (184 lb 1.6 oz) Height: 162.6 cm (5' 4.02") ACTIVE PROBLEM LIST Cardiac Dysrhythmia, Unspecified Dysthymic Disorder Anemia, Unspecified Generalized Osteoarthrosis, Unspecified Site Lumbago Sprain of Foot, Unspecified Site Seronegative Rheumatoid Arthritis (Hcc) Angina of Effort (Hcc) Cad (Coronary Artery Disease) PAST MEDICAL HISTORY Diagnosis Date - Anemia, unspecified - Cardiac dysrhythmia, unspecified - Cervical vertebral fusion 2014 - Dysthymic disorder - Esophageal reflux - Generalized osteoarthrosis, unspecified site knees - Lumbago PAST SURGICAL HISTORY Procedure Laterality Date - ANTERIOR INTERBODY FUSION, CERVICAL 2014 - PAST SURGICAL HISTORY OF colon resected - PAST SURGICAL HISTORY OF cyst knee - ROTATOR CUFF REPAIR Right 2015 FAMILY HISTORY Problem Relation Age of Onset - Breast Cancer Sister AGE 46 CA OF BONE - Osteoporosis Mother - Breast Cancer Maternal Aunt - Breast Cancer Other MATERNAL COUSIN - Cancer Father LEUKEMIA AGE 56 - Heart Mother CAD,CHF, renal failure - Diabetes Brother - other (RENAL DIS [Other]) Sister DIALYSIS FOR 23 YRS, Social History: Social History Tobacco Use - Smoking status: Former Smoker - Smokeless tobacco: Never Used - Tobacco comment: quit at least 10 years ago Substance Use Topics - Alcohol use: Yes Comment: 2 times a year - Drug use: No No current facility-administered medications on file prior to encounter. Current Outpatient Medications on File Prior to Encounter Medication Sig - hydrOXYchloroQUINE (PLAQUENIL) 200 mg tablet Take 200 mg by mouth twice daily. - methotrexate 2.5 mg tablet Take 8 tablets by mouth once each week. - folic acid 1 mg tablet Take 1 tablet by mouth once daily. - folic acid 1 mg tablet Take 2 tablets by mouth once daily. - celecoxib (CELEBREX) 200 mg capsule Take 200 mg by mouth twice daily. - pyridoxine, vitamin B6, (VITAMIN B-6) 100 mg tablet Take 25 mg by mouth once daily. - DULoxetine (CYMBALTA) 30 mg capsule Take 30 mg by mouth once daily. - gabapentin (NEURONTIN) 600 mg tablet Take 1,200 mg by mouth three times daily. - lisinopril (ZESTRIL, PRINIVIL) 10 mg tablet Take 10 mg by mouth twice daily. - atorvastatin (LIPITOR) 80 mg tablet Take 80 mg by mouth once daily. - pantoprazole DR (PROTONIX) 20 mg tablet Take 20 mg by mouth once daily. - zolpidem (AMBIEN) 10 mg tab Take by mouth at bedtime as needed. - ALPRAZolam (XANAX) 0.5 mg tablet Take 0.5 mg by mouth three times daily as needed for Anxiety. - Cholecalciferol, Vitamin D3, (VITAMIN D) 1,000 unit cap Take 2,000 Units by mouth once daily. - cyanocobalamin (B-12 DOTS) 500 mcg tab Take by mouth once daily. - magnesium oxide 400 mg cap Take by mouth once daily. - oxyCODONE-acetaminophen (PERCOCET) 5-325 mg tablet Take 1 tablet by mouth every 8 hours as needed for Pain. - aspirin(ECOTRIN LOW STRENGTH 81 MG TAB) Take one(1) tablet daily. - ACEBUTOLOL 400 MG CAP Take one(1) tablet two(2) times daily. - calcium carbonate/vitamin d3(CALCIUM 500 WITH VITAMIN D 500 MG (1,250 MG)-200 UNIT TAB) Take one(1) tablet two(2) times daily. - aspirin 325 mg tablet Take 325 mg by mouth one time only. Pre cath - perflutren lipid microspheres (DEFINITY) 1.1 mg/mL injection (to be provided with echo procedure) Inject 1.3 mL intravenously as directed. Administration Instructions: If no IV access, insert saline lock prior to administering contrast. Discontinue saline lock post exam. If patient has central line or IVAD, may access for administration according to line specific nursing protocol. Once exam is complete, flush line and de-access per line specific nursing protocol. Diluted IV Bolus: Dilute 1.3 ml of Definity with 8.7 ml of preservative-free saline - tofacitinib 5 mg tab Take 1 tablet by mouth twice daily. (Patient not taking: Reported on 12/03/2019) - ALENDRONATE SODIUM (FOSAMAX ORAL) Take 70 mg by mouth once each week. - ALL PURPOSE MULTIVITAMIN-MIN ORAL TAB Take one(1) tablet daily. Current Facility-Administered Medications Medication Dose Route Frequency Provider Last Rate Last Dose - [MAR Hold due to Transfer] oxyCODONE-acetaminophen 5-325 mg 1 tablet (PERCOCET) 1 tablet ORAL q 4 H PRN Soila K Scantling 1 tablet at 12/26/19 0910 - [MAR Hold due to Transfer] ALPRAZolam 0.5 mg tab(s) (XANAX) 0.5 mg ORAL TID Khaled Meloud Sleik 0.5 mg at 12/26/192027 - [MAR Hold due to Transfer] docusate sodium 100 mg cap(s) (COLACE) 100 mg ORAL BID PRN Soila K Scantling - [MAR Hold due to Transfer] bisacodyl EC 10 mg tab(s) (DULCOLAX) 10 mg ORAL BID PRN Soila K Scantling - [MAR Hold due to Transfer] hydrALAZINE 10 mg injection (APRESOLINE) 10 mg INTRAVENOUS q 6 H PRN Yulissa (Director Of Women'S Services Smelter Operator) SALOMÓN Enriquez - [MAR Hold due to Transfer] alendronate 70 mg tab(s) (FOSAMAX) 70 mg ORAL q 2 WEEKS Khaled Meloud Sleik - [MAR Hold due to Transfer] aspirin 81 mg chewable tab(s) 81 mg ORAL DAILY Khaled Meloud Sleik 81 mg at 12/27/19 0546 - [MAR Hold due to Transfer] gabapentin 1,200 mg cap(s) (NEURONTIN) 1,200 mg ORAL TID Khaled Meloud Sleik 1,200 mg at 12/27/19 0547 - [MAR Hold due to Transfer] atorvastatin 80 mg tab(s) (LIPITOR) 80 mg ORAL AT BEDTIME Khaled Meloud Sleik 80 mg at 12/26/192026 - [MAR Hold due to Transfer] hydrOXYchloroQUINE 200 mg tab(s) (PLAQUENIL) 200 mg ORAL BID Khaled Meloud Sleik 200 mg at 12/26/192027 - [MAR Hold due to Transfer] metoprolol tartrate (short acting) 25 mg tab(s) (LOPRESSOR) 25 mg ORAL q 12 H Khaled Meloud Sleik 25 mg at 12/27/19 0546 - [MAR Hold due to Transfer] mupirocin 2 % ointment (BACTROBAN) TOPICAL 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) SALOMÓN Enriquez - [JUN Hold due to Transfer] nitroglycerin sublingual 0.4 mg tab(s) (NITROQUICK) 0.4 mg SUBLINGUAL PRN Huber Desirkeyan - [JUN Hold due to Transfer] zolpidem 10 mg tab(s) (AMBIEN) 10 mg ORAL HS PRN Alonso Doty 10 mg at 12/26/19 2305 - [JUN Hold due to Transfer] isosorbide mononitrate ER 30 mg tab(s) (IMDUR) 30 mg ORAL DAILY (6 AM) Alonso Doty 30 mg at 12/27/19 0600 - [JUN Hold due to Transfer] acetaminophen 325-650 mg tab(s) (TYLENOL) 325-650 mg ORAL q 4 H PRN Alonso Doty 650 mg at 12/27/19 0547 Allergies: ALLERGIES Allergen Reactions - Bactrim [Sulfametho* Rash DOS EXAM: Adequate NPO Status: Yes Anesthetic Risks, Benefits, Alternatives, Personnel and Consent Discussed: Yes Patient agrees to proceed: Yes Previous Anesthesia: No history of adverse event Airway Assessment: MP 3; Neck ROM: MILD Limited Flexion and Extension; Airway Evaluation: No significant abnormalities Symptoms of Sleep Apnea: Hypertension and Age over 50 (64 year old) Dentition: Poor dentition Multiple missing teeth Chipped, loose and/or missing Additional Physical Exam: Lungs: Patient health status unchanged since recent history and physical. See history and physical for exam findings. Cardiac: Patient health status unchanged since recent history and physical. See history and physical for exam findings. Additional Pertinent Findings: N/A Blood Products: Will accept Blood/Blood Products Anesthetic Plan: General Anesthetic Monitoring: Standard ASA Monitors, Invasive Hemodynamic Monitoring Arterial line, KVNG - patient denies history of stricture or varices and CVP, Potential Prolonged Intubation, Potential ICU Admission Postop and Potential Multiple Transfusions Pain Management Plan: Parenteral or Oral ASA Class: 4 Other Medical Problems: MV CAD with preserved EF, HTN, HLD, RA/OA, Anemia Chronic Beta Chuy medication administered within 24 hours: Yes I have interviewed and examined the patient. I have reviewed the medical record and/or the pre-anesthesia evaluation, pertinent labs, and test results. Significant changes in the patient's condition since the History and Physical, not otherwise documented in primary service progress notes: No This contains updated information obtained within 48 hours of Surgery/Procedure. SIGNATURE: Charlie Pulido MD PATIENT NAME: Nadira Benítez DATE: December 27, 2019 TIME: 7:23 AM CSN: [id number] Jessica Chaves, RN, RN 12/27/2019 7:35 AM Signed PRE OP LEARNING ASSESSMENT PROCEDURE/SURGERY: {PROC/SURGERY: READINESS TO LEARN COGNITIVE ABILITY: Alert and oriented MOTIVATION TO LEARN: Eager Interested FAMILY SUPPORT: High - Very involved in pt care PATIENT LEARNS BEST BY: Written Instruction - Hand-outs Verbal Instruction Demonstration FACTORS AFFECTING LEARNING: None PHYSICAL LIMITATIONS AFFECTING LEARNING: None Electronically Signed By: Jessica Chaves RN In Department: [place] SURGERY OR {Select a patient education template: Progress Notes ([place] JOB SETTER): Millie Steele [facility] 12/03/2019 11:04 AM Signed Schedule [facility] 12/25/[address] Jaron Barros RN, RN 12/24/2019 8:57 AM Signed Heart Cath at [facility] scheduled as follows: Patient scheduled for heart catheterization on 12/25/19, spoke with Millie. COVID test at [place] scheduled on 12/22/19 at 0950. Post heart cath appointment scheduled 01/13. Pre procedure instructions, dates and times reviewed with patient in office. Printed information given to patient. Patient instructed to call our office immediately with any concerns or questions. Mildred Barros RN [facility] Vital Signs Date Time Vital Sign Value Performing Clinician Facility 01-03-2025 14:48-0400 Body height 162.[address] Maria Teresa Goff DO Work Phone: [facility] 01-03-2025 14:48-0400 Body mass index (BMI) [Ratio] 33.6 kg/m2 Dr. Maria Teresa Goff DO Work Phone: [facility] 01-03-2025 14:48-0400 Body weight 88.[address] Maria Teresa Goff DO Work Phone: [facility] 01-03-2025 14:48-0400 Diastolic blood pressure 89 mm[Hg] Dr. Maria Teresa Goff DO Work Phone: [facility] 01-03-2025 14:48-0400 Heart rate 63 /min Dr. Maria Teresa Goff DO Work Phone: [facility] 01-03-2025 14:48-0400 Respiratory rate 16 /min Dr. Maria Teresa Goff DO Work Phone: [facility] 01-03-2025 14:48-0400 SaO2% (BldA) [Mass fraction] 97 % Dr. Maria Teresa Goff DO Work Phone: [facility] 01-03-2025 14:48-0400 Systolic blood pressure 123 mm[Hg] Dr. Maria Teresa Goff DO Work Phone: [facility] 05-05-2023 14:23-0500 Body height 162.[address] Maria Teresa Goff Work Phone: [facility] 05-05-2023 14:23-0500 Body mass index (BMI) [Ratio] 31.9 kg/m2 Dr. Maria Teresa Goff Work Phone: [facility] 05-05-2023 14:23-0500 Body weight 84.[address] Maria Teresa Goff Work Phone: [facility] 05-05-2023 14:23-0500 Diastolic blood pressure 64 mm[Hg] Dr. Maria Teresa Goff Work Phone: [facility] 05-05-2023 14:23-0500 Heart rate 60 /min Dr. Maria Teresa Goff Work Phone: [facility] 05-05-2023 14:23-0500 Respiratory rate 16 /min Dr. Maria Teresa Goff Work Phone: [facility] 05-05-2023 14:23-0500 Systolic blood pressure 124 mm[Hg] Dr. Maria Teresa Goff Work Phone: [facility] 03-10-2023 13:37-0500 Diastolic blood pressure 96 mm[Hg] Dr. Maria Teresa Goff Work Phone: [facility] 03-10-2023 13:37-0500 Heart rate 83 /min Dr. Maria Teresa Goff Work Phone: [facility] 03-10-2023 13:37-0500 Respiratory rate 16 /min Dr. Maria Teresa Goff Work Phone: [facility] 03-10-2023 13:37-0500 SaO2% (BldA) [Mass fraction] 97 % Dr. Maria Teresa Goff Work Phone: [facility] 03-10-2023 13:37-0500 Systolic blood pressure 172 mm[Hg] Dr. Maria Teresa Goff Work Phone: [facility] 03-10-2023 12:05-0500 Body mass index (BMI) [Ratio] 32.5 kg/m2 Dr. Maria Teresa Goff Work Phone: [facility] 03-10-2023 12:05-0500 Body weight 86.[address] Maria Teresa Goff Work Phone: [facility] 02-11-2023 14:45-0400 Body temperature 98 [degF] Dr. Maria Teresa Goff Work Phone: [facility] 02-11-2023 14:45-0400 Diastolic blood pressure 77 mm[Hg] Dr. Maria Teresa Goff Work Phone: [facility] 02-11-2023 14:45-0400 Heart rate 61 /min Dr. Maria Teresa Goff Work Phone: [facility] 02-11-2023 14:45-0400 Respiratory rate 16 /min Dr. Maria Teresa Goff Work Phone: [facility] 02-11-2023 14:45-0400 SaO2% (BldA) [Mass fraction] 100 % Dr. Maria Teresa Goff Work Phone: [facility] 02-11-2023 14:45-0400 Systolic blood pressure 126 mm[Hg] Dr. Maria Teresa Goff Work Phone: [facility] 02-11-2023 12:36-0400 Body height 162.[address] Maria Teresa Goff Work Phone: [facility] 02-11-2023 12:36-0400 Body mass index (BMI) [Ratio] 32.1 kg/m2 Dr. Maria Teresa Goff Work Phone: [facility] 02-11-2023 12:36-0400 Body weight [address] Maria Teresa Goff Work Phone: [facility] 01-10-2023 13:09-0400 Body temperature 99 [degF] Humphrey Riley APRN.DEVELOPMENT AND HOUSING DIRECTOR Work Phone: [facility] 01-10-2023 13:09-0400 Body weight 87.54 kg Humphrey Riley APRN.DEVELOPMENT AND HOUSING DIRECTOR Work Phone: [facility] 01-10-2023 13:09-0400 Diastolic blood pressure 84 mm[Hg] Humprhey Riley APRN.DEVELOPMENT AND HOUSING DIRECTOR Work Phone: [facility] 01-10-2023 13:09-0400 Heart rate 69 /min Humphrey Riley APRN.DEVELOPMENT AND HOUSING DIRECTOR Work Phone: [facility] 01-10-2023 13:09-0400 Respiratory rate 18 /min Humphrey Riley APRN.DEVELOPMENT AND HOUSING DIRECTOR Work Phone: [facility] 01-10-2023 13:09-0400 SaO2% (BldA) [Mass fraction] 97 % Humphrey Riley APRN.DEVELOPMENT AND HOUSING DIRECTOR Work Phone: [facility] 01-10-2023 13:09-0400 Systolic blood pressure 123 mm[Hg] Humphrey Riley APRN.DEVELOPMENT AND HOUSING DIRECTOR Work Phone: [facility] 12-03-2022 10:43-0400 Body height 162.[address] Maria Teresa Goff Work Phone: [facility] 11-19-2022 10:58-0400 Body mass index (BMI) [Ratio] 33.6 kg/m2 Dr. Maria Teresa Goff Work Phone: [facility] 11-19-2022 10:58-0400 Body weight 88.[address] Maria Teresa Goff Work Phone: [facility] 11-19-2022 10:58-0400 Diastolic blood pressure 93 mm[Hg] Dr. Maria Teresa Goff Work Phone: [facility] 11-19-2022 10:58-0400 Heart rate 60 /min Dr. Maria Teresa Goff Work Phone: [facility] 11-19-2022 10:58-0400 Respiratory rate 18 /min Dr. Maria Teresa Goff Work Phone: [facility] 11-19-2022 10:58-0400 SaO2% (BldA) [Mass fraction] 99 % Dr. Maria Teresa Goff Work Phone: [facility] 11-19-2022 10:58-0400 Systolic blood pressure 144 mm[Hg] Dr. Maria Teresa Goff Work Phone: [facility] 11-07-2022 12:01-0400 Body height 162.56 cm [facility] 11-07-2022 12:01-0400 Body mass index (BMI) [Ratio] 32.5 kg/m2 [facility] 11-07-2022 12:01-0400 Body temperature 97.5 [degF] [facility] 11-07-2022 12:01-0400 Body weight 86.18 kg [facility] 11-07-2022 12:01-0400 Diastolic blood pressure 98 mm[Hg] [facility] 11-07-2022 12:01-0400 Heart rate 54 /min [facility] 11-07-2022 12:01-0400 Respiratory rate 16 /min [facility] 11-07-2022 12:01-0400 SaO2% (BldA) [Mass fraction] 99 % [facility] 11-07-2022 12:01-0400 Systolic blood pressure 186 mm[Hg] [facility] 09-12-2022 13:25-0400 Body temperature 98.29 [degF] Daija Mejía APRN.CNP Work Phone: [facility] 09-12-2022 13:25-0400 Body weight 90.17 kg Daija Mejía ROPE TWISTING MACHINE OPERATOR.DEVELOPMENT AND HOUSING DIRECTOR Work Phone: [facility] 09-12-2022 13:25-0400 Diastolic blood pressure 88 mm[Hg] Daija Mejía ROPE TWISTING MACHINE OPERATOR.DEVELOPMENT AND HOUSING DIRECTOR Work Phone: [facility] 09-12-2022 13:25-0400 Heart rate 65 /min Daija Mejía ROPE TWISTING MACHINE OPERATOR.DEVELOPMENT AND HOUSING DIRECTOR Work Phone: [facility] 09-12-2022 13:25-0400 Respiratory rate 21 /min Daija Mejía ROPE TWISTING MACHINE OPERATOR.DEVELOPMENT AND HOUSING DIRECTOR Work Phone: [facility] 09-12-2022 13:25-0400 SaO2% (BldA) [Mass fraction] 99 % Daija Mejía ROPE TWISTING MACHINE OPERATOR.DEVELOPMENT AND HOUSING DIRECTOR Work Phone: [facility] 09-12-2022 13:25-0400 Systolic blood pressure 140 mm[Hg] Daija Mejía ROPE TWISTING MACHINE OPERATOR.DEVELOPMENT AND HOUSING DIRECTOR Work Phone: [facility] 11-12-2021 14:57-0400 Body height 162.[address] Maria Teresa Goff Work Phone: [facility] Work Phone: 11-12-2021 14:57-0400 Body mass index (BMI) [Ratio] 32.1 kg/m2 Dr. Maria Teresa Goff Work Phone: [facility] Work Phone: 11-12-2021 14:57-0400 Body weight 84.[address] Maria Teresa Goff Work Phone: [facility] Work Phone: 11-12-2021 14:57-0400 Diastolic blood pressure 84 mm[Hg] Dr. Maria Teresa Goff Work Phone: [facility] Work Phone: 11-12-2021 14:57-0400 Heart rate 64 /min Dr. Maria Teresa Goff Work Phone: [facility] Work Phone: 11-12-2021 14:57-0400 Respiratory rate 16 /min Dr. Maria Teresa Goff Work Phone: [facility] Work Phone: 11-12-2021 14:57-0400 Systolic blood pressure 134 mm[Hg] Dr. Maria Teresa Goff Work Phone: [facility] Work Phone: 12-28-2019 06:44-0400 Body temperature 37.2 Deg [facility] Comment on above: Performed By: #### HA1C #### [facility] [address] [address] 12-27-2019 16:33-0400 Body temperature 36.0 Deg [facility] Comment on above: Performed By: #### HA1C #### [facility] [address] [address] Encounters Encounter Date Encounter Type Care Provider Facility Start: 03-05-2025 ambulatory Rajat Saba NP Facility :[facility] Start: 02-19-2025 End: 02-19-2025 Telephone encounter Michael Monterroso MD Work Phone: [facility] Comment on above: New Patient Start: 02-04-2025 ambulatory Maria Teresa Goff Facility :[facility] Start: 01-03-2025 End: 01-03-[address] Maria Teresa Goff DO Work Phone: -[facility] Start: 01-03-2025 End: 01-03-2025 Patient encounter procedure Rajat Saba BIOLOGY LABORATORY ASSISTANT-C -[facility] Work Phone: Start: 12-12-2024 End: 12-12-2024 ambulatory BALDO PARKER ROPE TWISTING MACHINE OPERATOR-DEVELOPMENT AND HOUSING DIRECTOR Facility:A Start: 12-06-2024 End: 12-06-2024 ambulatory BALDO PARKER ROPE TWISTING MACHINE OPERATOR-DEVELOPMENT AND HOUSING DIRECTOR Facility:A Start: 12-03-2024 End: 12-03-2024 Telephone encounter Michael Monterroso MD Work Phone: [facility] Start: 11-30-2024 End: 12-04-2024 Telephone encounter Dejon Cavanaugh MD Work Phone: [facility] Comment on above: New Patient Start: 08-31-2024 ambulatory [facility] Facility :[facility] Start: 08-27-2024 End: 08-27-2024 Patient encounter procedure Liz LE -[facility] Work Phone: Start: 08-27-2024 End: 08-27-[address] Maria Teresa Goff DO Work Phone: [facility] Work Phone: Start: 08-27-2024 End: 08-27-2024 ambulatory [facility] Facility:[facility] Start: 08-16-2024 End: 08-16-2024 Telephone encounter Tomy Bains MD Work Phone: [facility] Comment on above: New Patient Start: 08-14-2024 End: 08-14-2024 Telephone encounter Tomy Bains MD Work Phone: [facility] Comment on above: New Patient Start: 05-29-2024 End: 05-29-2024 Telephone encounter Dejon Cavanaugh MD Work Phone: [facility] Comment on above: New Patient New Patient; Cancell ed Appointment (Same day cancellation) Start: 04-20-2024 End: 04-20-2024 ambulatory [facility] Facility:[facility] Start: 02-10-2024 End: 02-10-2024 Orders Only Taylor Blair MD Work Phone: Cardiology Comment on above: Hx of CABG (Primary Dx); Chest pain, unspecified type Start: 02-08-2024 End: 02-08-2024 Telephone encounter Cesario Hall APRN.CNP Work Phone: [facility] Comment on above: Appointment Start: 02-07-2024 End: 02-07-2024 Emergency department patient visit MARIA TERESA GOFF Facility:[id number] Start: 02-06-2024 End: 02-06-2024 ambulatory VANESSA ALLISON PA-C Facility:A Start: 09-27-2023 End: 09-27-2023 ambulatory MARIA TERESA JACOBSSAY Facility:A Start: 07-08-2023 ambulatory MARIA TERESA GOFF DO Facil ity:A Start: 05-30-2023 End: 05-30-[address] Maria Teresa Goff Work Phone: [facility] Work Phone: Start: 05-23-2023 End: 05-23-[address] Maria Teresa Goff Work Phone: [facility] Work Phone: Start: 05-16-2023 End: 05-16-[address] Maria Teresa Goff Work Phone: [facility] Work Phone: Start: 05-05-2023 End: 05-05-[address] Maria Teresa Goff Work Phone: [facility] Work Phone: Start: 03-16-2023 End: 03-16-[address] Maria Teresa Goff Work Phone: [facility]-Laboratory, Specimen Work Phone: Start: 03-11-2023 End: 03-11-[address] Maria Teresa Goff Work Phone: [facility] Work Phone: Start: 03-10-2023 End: 03-10-[address] Maria Teresa Goff Work Phone: [facility] Work Phone: Start: 02-11-2023 Non-patient / Non-visit Dr. Maria Teresa Goff Work Phone: [facility] Start: 02-11-2023 End: 02-11-2023 Admission to same day surgery center Dr. Maria Teresa Goff Work Phone: [facility]-Endoscopy Work Phone: Start: 02-11-2023 End: 02-11-[address] Maria Teresa Goff Work Phone: [facility] Work Phone: Start: 02-09-[address] Carl Goff Work Phone: [facility]-Occupational Therapy Work Phone: Start: 01-21-2023 End: 01-21-[address] Maria Teresa Goff Work Phone: [facility]-Laboratory Work Phone: Start: 01-21-2023 End: 01-21-[address] Maria Teresa Goff Work Phone: [facility] Work Phone: Start: 01-19-2023 End: 01-19-[address] Maria Teresa Goff Work Phone: [facility] Work Phone: Start: 01-10-2023 End: 01-10-2023 ambulatory MARIA TERESA GOFF Facility:[facility] Start: 01-10-2023 End: 01-10-2023 Patient encounter procedure Humphrey Riley APRN.CNP Work Phone: [facility] Comment on above: Right lower quadrant abdominal pain (Primary Dx) Start: 12-20-2022 End: 12-20-[address] Maria Teresa Goff Work Phone: [facility] Work Phone: Start: 12-12-2022 Non-patient / Non-visit Dr. Maria Teresa Goff Work Phone: [facility] Start: 12-07-2022 End: 12-07-[address] Maria Teresa Goff Work Phone: [facility] Work Phone: Start: 12-07-2022 End: 12-07-[address] Maria Teresa Goff Work Phone: [facility]-Cardiovascular Services Work Phone: Start: 12-03-2022 End: 12-03-[address] Maria Teresa Goff Work Phone: [facility] Work Phone: Start: 11-22-2022 End: 11-22-[address] Maria Teresa Goff Work Phone: [facility] Work Phone: Start: 11-19-2022 End: 11-19-[address] Maria Teresa Goff Work Phone: [facility] Work Phone: Start: 11-17-2022 End: 11-17-[address] Maria Teresa Goff Work Phone: [facility] Work Phone: Start: 11-16-2022 End: 11-16-[address] Maria Teresa Goff Work Phone: [facility] Work Phone: Start: 11-16-2022 End: 11-16-[address] Maria Teresa Goff Work Phone: [facility]-Pre-Admission Testing Work Phone: Start: 11-16-2022 End: 11-16-2022 Non-patient / Non-visit Dr. Maria Teresa Goff Work Phone: [facility] Work Phone: Start: 11-12-2022 End: 11-12-[address] Maria Teresa Goff Work Phone: [facility] Work Phone: Start: 11-09-2022 End: 11-09-[address] Maria Teresa Goff Work Phone: [facility] Work Phone: Start: 11-07-2022 End: 11-07-2022 Emergency department patient visit [facility]-Emergency Department Work Phone: Start: 09-12-2022 End: 09-12-2022 ambulatory MARIA TERESA GOFF Facility:[facility] Start: 09-12-2022 End: 09-12-2022 Patient encounter procedure Daija Mejía APRN.DEVELOPMENT AND HOUSING DIRECTOR Work Phone: [facility] Comment on above: Upper respiratory tr act infection, unspecified type (Primary Dx) Start: 12-23-2021 Non-patient / Non-visit Dr. Maria Teresa Goff Work Phone: [facility] Start: 12-23-2021 End: 12-23-[address] Maria Teresa Goff Work Phone: [facility] Work Phone: Start: 12-23-2021 End: 12-23-[address] Maria Teresa Goff Work Phone: [facility]-Cardiovascular Services Start: 11-12-2021 End: 11-12-[address] Maria Teresa Goff Work Phone: [facility] Start: 05-26-2021 End: 05-26-2021 Patient encounter procedure MARIA TERESA GOFF DO [facility] Procedures Date Procedure Procedure Detail Performing Clinician Start: 03-16-2023 Giardia Antigen (JEAN) Eliseo Goff Work Phone: Start: 03-16-[address] [facility] [address] Maria Teresa Goff Work Phone: Start: 03-10-2023 Giardia Antigen (JEAN) Eliseo Goff Work Phone: Start: 03-10-[address] [address] Maria Teresa Goff Work Phone: Start: 03-10-2023 MRI of small intestine Dr. Maria Teresa Goff Work Phone: Start: 02-11-[address] Maria Teresa Goff Work Phone: Start: 01-19-2023 Plain x-ray of wrist Dr Aleks Goff Work Phone: Start: 12-20-2022 Plain x-ray of wrist Dr Aleks Goff Work Phone: Start: 12-07-2022 Cardiovascular stres s test using pharmacologic stress agent Dr. Maria Teresa Goff Work Phone: Start: 12-03-2022 Plain x-ray of wrist Dr Aleks Goff Work Phone: Start: 11-22-2022 Plain x-ray of wrist Dr Aleks Goff Work Phone: Start: 11-17-2022 Plain x-ray of wrist Dr Aleks Goff Work Phone: Start: 11-09-2022 Plain x-ray of wrist Dr Aleks Goff Work Phone: Start: 11-07-2022 Plain x-ray of elbow Start: 11-07-2022 Plain x-ray of wrist Start: 11-07-2022 Radiologic examinati on of knee Start: 11-07-2022 X-ray of radius and ulna Start: 09-12-2022 STREP A MOLECULAR (POC) Daija Mejía APRN.DEVELOPMENT AND HOUSING DIRECTOR Work Phone: Start: 05-07-2020 Mammography Michael arce MD Work Phone: Start: 12-31-2019 History of coronary artery bypass grafting Hx of CABG Daija Mejía APRN.DEVELOPMENT AND HOUSING DIRECTOR Work Phone: Start: 12-27-2019 Coronary artery bypa ss grafts x 3 MARIA TERESA SHELL CARLOS Start: 12-26-2019 Antibody screen Comment on above: Performed By: #### G LMET #### [place] [id number] Start: 12-11-2019 History of coronary artery bypass grafting History of coronary artery bypass surgery Dr. Maria Teresa Goff Work Phone: Comment on above: CABG x3- VERNON-LAD, S VG-Diag., SVG-CX @ [facility] 12/27/19 asymptomatic at this point in time Dr. Eleno Cahvez was her primary surgeon Start: 01-12-2018 Colonoscopy MARIA TERESA MARCELLUS LINUSAnson DO Comment on above: Dr. Gomez WASC repe at ten years Start: 01-06-2018 Mammography MARIA TERESA HUFF DO Comment on above: BI-RADS 2, Benign, f ollow up one year Start: 04-25-2004 Lipid 1996 panel - S kmi or Plasma Humphrey Riley ROPE TWISTING MACHINE OPERATOR.DEVELOPMENT AND HOUSING DIRECTOR Work Phone: History of coronary artery bypass grafting S/P CABG x 3( Confirmed ) MARIA TERESA GOFF DO History of coronary artery bypass grafting Hx of CABG Taylor Blair MD Work Phone: Tonsillectomy MARIA TERESA GOFF DO Plan of Treatment Date Care Activity Detail Author Start: 02-06-2027 Diabetes Screening Diabetes Screenin [facility] Start: 08-06-2025 End: 08-06-2025 Patient encounter procedure 08/06/2025 1:00 PM EDT Office Visit [facility] [address] [place] [address] Michael Monterroso MD [address] [place] [address] [facility] - [place] Start: 12-18-2024 End: 12-18-2024 Patient encounter procedure 12/18/2024 10:00 AM EDT Office Visit [facility] Rhe[facility]ology - [place] [address] [place] [phone] Dejon Cavanaugh MD [address] [place] [address] [facility] - [place] Start: 12-13-2024 End: 12-13-2024 Patient encounter procedure 12/13/2024 8:30 AM EDT Office Visit [facility] [address] [place] [phone] Michael Monterroso MD [address] [place] [id number] [facility] Start: 12-10-2024 COVID-19 Vaccine ( season) COVID-19 Vaccine ( season) [facility] Start: 12-10-2024 Influenza vaccination S [facility] Start: 08-02-2024 End: 08-02-2024 Patient encounter procedure 08/02/2024 3:00 PM EDT Office Visit [facility] Rheumatology - [place] [address] [place] [phone] Dejon Cavanaugh MD [address] [place] [address] [facility] - [place] Start: 07-25-2024 End: 07-25-2024 Patient encounter procedure 07/25/2024 10:45 AM EDT Office Visit Cardiology [address] [place] [address] Taylor Blair MD [address] [place] [address] Chest pain, history of CABG Cardiology Comment on above: Chest pain, history of CABG Start: 07-25-2024 End: 07-25-2024 ambulatory 07/25/2024 9:45 AM EDT Results Only Cardiology [address] [place] [address] Chest pain, history of CABG Cardiology Comment on above: Chest pain, history of CABG Start: 04-11-2024 Medicare Advantage A nnual Wellness Visit Medicare Advantage Annual Wellness Visit [facility] Start: 03-07-2024 End: 03-07-2024 Patient encounter procedure 03/07/2024 10:00 AM EST Office Visit [facility] Cardiology [address] [place] [address] [place] [phone] Fariba Ortega APRN.[facility] [address] [place] [address] Chest pain, history of CABG [facility] Comment on above: Chest pain, history of CABG Start: 12-11-2023 Covid-19 Vaccine ( season) Covid-19 Vaccine () [facility] Start: 12-11-2023 Influenza vaccination Influenza Vacc ine (#1) [facility] Start: 04-11-2023 Advance Directive Discussion Advance Directive Discussion [facility] Start: 03-10-2023 Following clinical pathway protocol [facility] Start: 02-26-2023 DIABETES SCREEN DIABETES SCREEN [facility] Start: 02-26-2023 Diabetes Screening Diabetes Screenin g [facility] Start: 02-11-2023 [facility] Start: 12-20-2022 Patient referral [facility] Work Phone: Start: 12-10-2022 Influenza vaccination Influenza Vacc ine (#1) [facility] Start: 04-11-2022 ADVANCE DIRECTIVE DISCUSSION ADVANCE DIRECTIVE DISCUSSION [facility] Start: 11-12-2021 Patient referral [facility] Work Phone: Start: 05-21-2021 COVID-19 VACCINE (4 - Booster for Moderna series) COVID-19 VACCINE (4 - Booster for Moderna series) [facility] Start: 05-21-2021 Covid-19 Vaccine (4 - Moderna risk series) Covid-19 Vaccine (4 - Moderna risk series) [facility] Start: 05-07-2021 Screening for malign ant neoplasm of breast Mammogram [facility] Start: 02-29-2020 BONE DENSITY BONE DENSITY [facility] Start: 02-29-2020 Bone Density Screening Bone Density Screening [facility] Start: 02-29-2020 Screening for osteoporosis Bone Density Screening [facility] Start: 04-11-2016 DTaP/Tdap/Td Vaccine s (2 - Tdap) DTaP/Tdap/Td Vaccines (2 - Tdap) [facility] Start: 04-11-2016 Urine microalbumin profile DTaP,Tdap,Td Vaccine (2 - Tdap) [facility] Start: 2015 RSV Immunization for Adults (1 - Risk 60-74 years 1-dose series) RSV Immunization for Adults (1 - Risk 60-74 years 1-dose series) [facility] Start: 2015 RSV Vaccine (1 - Ris k 60-74 years 1-dose series) RSV Vaccine (1 - Risk 60-74 years 1-dose series) [facility] Start: 04-11-2010 Pneumococcal Vaccine : 50+ Years (2 of 2 - PCV) Pneumococcal Vaccine: 50+ Years (2 of 2 - PCV) [facility] Start: 04-11-2010 Pneumococcal Vaccine : 65+ (2 of 2 - PCV) Pneumococcal Vaccine: 65+ (2 of 2 - PCV) [facility] Start: 04-25-2009 Lipid 1996 panel - S kim or Plasma Lipid Screening [facility] Start: 04-25-2009 Lipid panel Lipid Screening [facility] Start: 04-25-2009 LIPID SCREEN LIPID SCREEN [facility] Start: 04-25-2005 Hepatitis B surface antibody level LDL CHOLESTEROL [facility] Start: 2005 RSV Immunization for Adults (1 - Risk 50-74 years 1-dose series) RSV Immunization for Adults (1 - Risk 50-74 years 1-dose series) [facility] Start: 2005 Zoster Vaccines (1 of 2) Zoste r Vaccines (1 of 2) [facility] Start: 02-29-2000 COLOGUARD (FIT-DNA) COLOGUARD (FIT-D NA) [facility] Start: 02-29-2000 Colonoscopy COLONOSCOPY [facility] Start: 02-29-2000 COLORECTAL CANCER SCREENING COLORECTAL CANCER SCREENING [facility] Start: 02-29-[address] COLONOGRAPHY [facility] Start: 02-29-2000 FECAL OCCULT BLOOD FECAL OCCULT BLOO D [facility] Start: 02-29-2000 Screening for malign ant neoplasm of colon [facility] Start: 02-29-2000 SIGMOIDOSCOPY SIGMOIDOSCOPY [facility] Start: 1995 Mammography [facility] Start: 1995 Screening for malign ant neoplasm of breast [facility] Start: 1974 SHINGRIX VACCINE (1 of 2) CHAO GRIX VACCINE (1 of 2) [facility] Start: 1974 Urine microalbumin profile [facility] Start: 1973 ANNUAL PCP TEAM AIR FILLER MARIA GUADALUPE DISEASE VISIT ANNUAL PCP TEAM CHRONIC DISEASE VISIT [facility] Start: 1973 Anxiety Screening Anxiety Screening [facility] Start: 1973 Hepatitis C screening Hepatitis C Sc reening [facility] Start: 1967 Depression Monitoring Depression Mon [facility] Start: 1966 Screening for malign ant neoplasm of cervix Cervical Cancer Screening [facility] Start: 1961 Pneumococcal Vaccine : 65+ (1 - PCV) Pneumococcal Vaccine: 65+ (1 - PCV) [facility] Start: 1961 PNEUMOCOCCAL: 65+ (1 - PCV) PNEUMOCOCCAL: 65+ (1 - PCV) [facility] Start: 1955 Lipid panel Lipid Panel [facility] Start: 1955 Screening for malign ant neoplasm of colon [facility] Start: 1955 Screening for osteoporosis Bone Density Scan [facility] C reactive protein [Mass/volume] in Serum or Plasma [facility] CBC W Auto Different ial panel - Blood [facility] Clostridioides diffi cile DNA [Presence] in Unspecified specimen by DENNISE with probe detection [facility] Complete blood count [facility] Comprehensive metabo lic 2000 panel - Serum or Plasma [facility] End: 02-09-2025 ECG COMPLETE ECG COMPLETE ECG Routine Hx of CABG Chest pain, unspecified type 1 Occurrences starting 02/10/2024 until 02/09/2025 [facility] Work Phone: Comment on above: 1 Occurrences starti ng 02/10/2024 until 02/09/2025 Elastase, pancreatic (el-1), fecal; quantitative [facility] Elastase.pancreatic [Presence] in Stool [facility] Fat [Presence] in Stool [facility] Gastrointestinal pathogens panel - Stool by DENNISE with probe detection [facility] Helicobacter pylori Ag [Presence] in Stool by Immunoassay [facility] Lactoferrin [Presenc e] in Stool by Immunoassay [facility] Lipid 1996 panel - S kim or Plasma [facility] MRI of small intestine [facility] NM Heart Views W str ess and W radionuclide IV [facility] Patient Education Wrist Fracture [facility] Work Phone: Patient referral [facility] Work Phone: Protein measurement [facility] Protein measurement [facility] Immunizations Immunization Date Immunization Notes Care Provider Bulmaro goodson 03-10-2022 influenza virus vacc ine, unspecified formulation Humphrey Riley APRN.[facility] Work Phone: [facility] 02-11-2021 influenza, high dose seasonal, preservative-free; Translations: [Fluad Quadrivalent PF ] [facility] 07-07-2020 COVID-19, mRNA, LNP- S, PF, 100 mcg or 50 mcg dose; Translations: [Moderna COVID-19 Vaccine] [facility] 06-09-2020 COVID-19, mRNA, LNP- S, PF, 100 mcg or 50 mcg dose; Translations: [Moderna COVID-19 Vaccine] [facility] Comment on above: Result Comment: [address] 02-27-2020 influenza, injectabl e, quadrivalent, preservative free; Translations: [Fluarix PF Quadrivalent ] MARIA TERESA GOFF [facility] 02-04-2017 influenza virus vacc ine, unspecified formulation MARIA TERESA FRANCISY [facility] 01-17-2015 influenza virus vacc ine, unspecified formulation MARIA TERESA JACOBSSAY DO [facility] 01-02-2014 influenza, injectabl e, quadrivalent, preservative free Dr. Maria Teresa Goff Work Phone: [facility] 01-02-2014 influenza, seasonal, injectable Dr. Maria Teresa Goff Work Phone: [facility] 12-10-2013 influenza virus vacc ine, unspecified formulation MARIA TERESA JACOBSSAY [facility] 04-18-[address] Maria Teresa Goff Work Phone: [facility] 01-09-2013 influenza virus vacc ine, unspecified formulation MARIA TERESA SHELL [facility] 04-11-2011 influenza virus vacc ine, unspecified formulation MARIA TERESA JACOBSSAY DO [facility] 04-11-2009 pneumococcal polysaccharide vaccine, 23 valent MARIA TERESA GOFF DO [facility] 04-11-2006 tetanus toxoid, redu benjamin diphtheria toxoid, and acellular pertussis vaccine, adsorbed MARIA TERESA GOFF DO [facility] Payers Date Payer Category Payer Unknown [id number] 2024 Medicare O [employer] [id number] 2024 Self-pay [id number] 2022 Medicaid [employer] [facility] MED[facility] [id number] 2022-Present [phone] [address] [place] [address] Medicaid [id number] 2022 Unknown [id number] 2018 Medicare [id number] 2018 Medicare [id number] 2014 Medicaid [id number] 1955 Unknown [id number] 1955 Unknown [id number] 1955 Unknown [id number] 1955 Unknown [id number] 1955 Unknown [id number] Medicare MEDICARE PART A B [id number] Medicare MEDICARE PART A B [id number] Unknown [facility]ICAL [facility] [id number] Unknown [id number] Unknown [id number] Unknown [id number] Unknown [id number] Unknown [id number] Unknown [id number] Unknown [id number] Social History Date Type Detail Facility Start: 11-16-2018 End: 08-27-2024 Ex-smoker (finding) [facility] Start: 1955 Sex Assigned At Female A [facility] Start: 11-12-2021 End: 05-30-2023 Tobacco smoking status NHIS Unknown if ever smoked [facility] Start: 02-06-2020 None [facility] Start: 08-07-2020 Alone [facility] Start: 08-07-2020 Non-smoker [facility] History of tobacco use Current smoker [facility] Start: 09-12-2022 Tobacco use and exposure Smokeless tobacco non-user [facility] Start: 09-12-2022 End: 01-10-2023 Alcohol intake Current drinker of alcohol (finding) [facility] Start: 12-26-2019 History SDOH Financial 5 [facility] Start: 12-26-2019 History SDOH Food Worry 1 [facility] Start: 12-26-2019 History SDOH Transport Med 2 [facility] Start: 09-12-2022 Tobacco Comment quit at least 10 years ago [facility] Start: 1955 Sex Assigned At Not on file [facility] Start: 01-10-2023 End: 02-08-2024 History of Social function [facility] Work Phone: Start: 01-10-2023 End: 02-08-2024 Tobacco use panel [facility] Work Phone: How hard is it for you to pay for the very basics like food, housing, medical care, and heating Not hard at all [facility] Work Phone: (I/We) worried whether (my/our) food would run out before (I/we) got money to buy more. Never true [facility] Work Phone: Start: 12-07-2023 Sex Female (finding) [facility] NEGATED: Highlighted row [facility] Goals Date Patient Goal Desired Activity /State Mental Status Date Assessment Result Facility 03-10-2023 Cognitive function Voice/Name [facility] Work Phone: 02-11-2023 Cognitive function Voice/Name [facility] Work Phone: 02-11-2023 Cognitive function Patient Daphne hauser Person;Place;Time [facility] Work Phone: Clinical Notes 12-03-2019 to 02-19-2025 Telephone Encounter - Marjan Westbrook - 02/19/2025 10:39 AM ESTTelephone Encounter - Marjan Westbrook - 02/19/2025 10:39 AM EST Note Date & Type Note Facility 02-19-2025 Telephone encounter Note Form atting of this note might be different from the original. Called patient made apt [facility] 02-19-2025 Miscellaneous Notes Formattin g of this note might be different from the original. Called patient made apt documented in this encounter [facility] 01-03-2025 Progress note [facility] 01-03-2025 Progress note Note Date/Time January 03, 2025 3:11pm [facility] [address] [place] [address] OFFICE VISIT Date of Service: 01/03/25 MR#: [id number] Acct: [id number] Name: NADIRA BENÍTEZ Rep #: [id number] : 1955 Provider: REY Saba Age/Sex: 69/F Location: [facility] Status: Signed HPI HPI History of Present Illness Details: Nadira Benítez is a 69-year-old white female with a history of underlying CAD status post CABG, cardiac ectopy with PACs/PVCs, hyperlipidemia, and hypertension. She underwent [facility] diagnostic cardiac catheterization on 12-25-2019. Per the report the left main coronary was normal, the LAD had proximal 99% stenosis, the LCx had distal 90% stenosis, the RCA had mild diffusedisease. She subsequently underwent CABG on 12-27-2019 at [facility]. This included a VERNON to the LAD, and SVG to the diagonal branch, and anSVG to the distal LCx. The patient had been evaluated here in our office August 30, 2023. At that time she was complaining of some chest discomfort and she underwent a Lexiscan Cardiolite stress test November 29, 2023 which showed no evidence of scar or ischemia and an estimated ejection fraction of 70%. The patient reports now that she is back into a little bit better aerobic exercise program and with walking in the swimming pools in [place] that her symptoms have improved. She does report that she gets occasional sharp or dull or even pressure type sensations that are reproducible with palpation the last 10 to 30 seconds at a time. The patient reports that she can walk 2 miles without any chest discomfort. She is stiff from her arthritis in her hips. She continues with weekly, sharp and dull chest discomfort. This is located at rest and during mild activity such as doing dishes. This located midsternal left side of her chest. This is considered to be brief. This is unchanged fromprevious. She acknowledges palpitations she describes as pounding. She denies bilateral lower extremity more claudication. She acknowledges occasional, dry cough. She denies shortness with activity, shortness of breath at rest, orthopnea, or PND. She denies lightheadedness, dizziness, near syncope, syncope. She acknowledges fatigue and weakness. Intake Vital Signs 12/19/23 09:28 01/03/25 14:48 Height 5 ft 4 in 5 ft 4 in Weight: 196 lb BMI 33.6 BP 123/89 H Blood Pressure Location Lt brachial Position Sitting Respiration 16 Pulse 63 Pulse Source NIBP Pulse Oximetry (%) 97 Oxygen Delivery Method room air Intake Visit Reasons: 1 Y FU Sas Programmer Required: No Accompanied by: Self Is patient in pain?: Yes (right hip) Pain scale (1-10): 3 Allergies sulfamethoxazole (From Bactrim) Allergy (Verified 01/03/25 14:37) Rash trimethoprim (From Bactrim) Allergy (Verified 01/03/25 14:37) Rash Medications ?Medication ?Instructions ?Recorded ?Confirmed ?Type pantoprazole 40 mg tablet,delayed 40 mg PO DAILY 02/2401/03/25 History release alprazolam 0.5 mg tablet 0.5 mg PO TID PRN PRN Anxiet y 05/25/19 01/03/25 History aspirin 81 mg tablet,delayed 81 mg PO DAILY 05/25/19 0 01/03/25 History release (Adult Aspirin Regimen) pyridoxine (vitamin B6) 25 mg 25 mg PO DAILY 05/25/19 01/03/25 History tablet metoprolol tartrate 50 mg tablet 50 mg PO TID 01/08/20 01/03/25 History cholecalciferol (vitamin D3) 25 3,000 unit PO DAILY 01/03/25 History mcg (1,000 unit) tablet cyanocobalamin (vitamin B-12) 500 1,000 mcg PO DAILY 0 11/12/21 01/03/25 History mcg lozenges folic acid 800 mcg tablet 2.4 mg PO DAILY 11/12/21 History hydroxychloroquine 200 mg tablet 200 mg PO BID 2 01/03/25 History magnesium oxide 400 mg PO DAILY 11/12/21 History zolpidem 10 mg tablet (Ambien) 10 mg PO QHS 11/12/21 0 01/03/25 History atorvastatin 80 mg tablet 80 mg PO QHS 05/24/22 History methotrexate sodium 2.5 mg tablet 10 mg PO QWEEK 05/0501/03/25 History nitroglycerin 0.4 mg sublingual 0.4 mg sublingual Q5-1 5M PRN chest 08/30/23 01/03/25 Rx tablet (Nitrostat) pain #25 tabs zinc gluconate 100 mg tablet 200 mg PO QDAY 12/19/23 0 08/27/24 History ondansetron HCl 4 mg tablet 4 mg PO Q6H PRN nausea and 01/06/24 01/03/25 Rx vomiting #120 tabs lisinopril 5 mg tablet 5 mg PO BID #180 tabs 01/03/25 Rx huvmpx-zoszxljl-ebgbjoo 3 cap PO QAC #300 caps 10/2201/03/25 Rx 36,000-114,000-180,000 unit capsule,delay rel (Creon) dicyclomine 20 mg tablet 20 mg PO 4X/DAY PRN cramps # 120 10/31/24 01/03/25 Rx tabs ciprofloxacin HCl 500 mg tablet 500 mg PO BID 2 weeks #28 tabs 12/26/24 01/03/25 Rx metronidazole 500 mg tablet 500 mg PO BID 2 weeks #28 tabs 12/26/24 Rx ascorbic acid (vitamin C) 500 mg 500 mg PO QDAY 01/03/25 History tablet celecoxib 200 mg capsule (Celebrex) 200 mg PO 3XW 12/1101/03/25 History diphenoxylate-atropine 2.5 1 tab PO TID PRN diarrhea 0 01/03/25 01/03/25 History mg-0.025 mg tablet duloxetine 30 mg capsule,delayed 90 mg PO QDAY 5 01/03/25 History release gabapentin 600 mg tablet 600 mg PO BID 01/03/2501/03 History Ejection fraction %: 62 Have you fallen in the past year?: No Nurse's Note: Occasional CP continues unchanged from previous. Right hip replacement planned with Dr. Benavidez. Currently on Cipro for EPI (exocrine pancreatic insufficiency). [facility] Medical History Exocrine pancreatic insufficiency Small intestinal bacterial overgrowth (SIBO) Injury of head and neck History of diverticulitis History of stress test Wears glasses Post-menopausal Depression History of steroid therapy Arthritis Anemia High cholesterol Migraine headache History of ulceration Chronic diarrhea Gastric reflux Former smoker History of pain when walking History of edema History of echocardiogram Cardiology follow-up encounter History of irregular heartbeat Chest pain Vitamin B12 deficiency Vitamin D deficiency Iron deficiency anemia Persistent insomnia Anxiety Premature ventricular contraction Premature atrial contraction Atherosclerotic heart disease of [place] coronary artery without angina pectoris Coronary artery disease anterior neck fusion history of posterior neck fusion history of right knee tumor Rheumatoid arthritis Osteoporosis Osteoarthritis neck posterior and anterior repair Diverticulitis neck/back pain Limb weakness Difficulty balancing Knee pain Diarrhea Stomach ulcer Shoulder pain Hypertension Hyperlipidemia GERD (gastroesophageal reflux disease) Diverticulosis of colon without diverticulitis History of depression Benign hypertension Gastroenteritis Surgical History History of total left knee replacement History of cardiac catheterization History of bilateral oophorectomies History of bowel resection History of coronary artery bypass surgery (~12/27/19) Status post right rotator cuff repair History of tonsillectomy and adenoidectomy History of total knee replacement (TKR) Family History Father Leukemia Brother Heart disease Mother CAD (coronary artery disease) Heart disease Sister Chronic glomerulonephritis Breast cancer Sister Heart disease Kidney disease Social History Smoking Status: Former smoker alcohol intake: never substance use type: does not use caffeine: Yes Type: coffee Number of servings: 2 ROS Const Const: Positive for fatigue, weakness and difficulty sleeping; Negative for headache(s), frequent falls or daytime sleepiness Eyes Eyes: Negative for blind spots, loss of peripheral vision, transient loss of vision, blurry vision or change in vision ENT ENT: Positive for balance problems (Slight r/t right hip); Negative for headache(s), dizziness, tinnitus or Nosebleed/epistaxis Cardio Chest Pain: Yes Frequency: weekly (few times a week) Character: sharp and dull Onset: at rest and other (Mild activity such as doing dishes. ) Location: mid sternal and left chest Duration: brief Palpitations: Yes feels like its: pounding Edema: None Muscle aches with walking: None Resp Respiratory: Positive for Cough (Occasional, dry. ); Negative for SOB with activity, SOB at rest, SOB orthopnea\\SOB lying down, Coughing up blood/hemoptysis, chest congestion or wheezing GI GI: Positive for nausea, heartburn and loose stools (Occasional); Negative vomiting, vomiting blood/hematemesis, bright, red blood in stools or black,tarry stools : Negative for hematuria or frequent nighttime urination/ nocturia Musc Musc: Positive for balance problems (Slight r/t right hip); Negative for muscle weakness Skin Skin: Negative non-healing lesions or wounds Neuro Neuro: Positive for weakness; Negative for dizziness, lightheadedness, near syncope, syncope, frequent falls, headache(s) or blurry vision Troy Hematologic/Lymphatic: Negative for easy bleeding or easy bruising Endo Endo: Positive for fatigue Cardiology Exam Const Appearance: cooperative, comfortable, no acute distress and well developed Head Head: normal to inspection Eyes General: appearance normal, both eyes and all related structures Neck Neck: normal visual inspection and no JVD Carotids: Negative bruit Chest Chest inspection: normal inspection of the chest Auscultation: Bilateral: Clear to Auscultation Cardio Rate: regular rate Rhythm: regular rhythm Heart sounds: S1 normal and S2 normal; Negative rub, gallop or murmur GI GI: normal to inspection, soft and bowel sounds present Neuro General: patient alert and patient oriented x3 Skin Skin: no rashes or lesions noted Extremities Lower Extremity Edema: None: Bilateral Psych Psychological: normal affect Supplemental Info Supplemental Information Stress Test 12/07/2022 Impression 1. Lexiscan stress test test is negative for Lexiscan infusion induced EKG changes of ischemia. 2. Lexiscan stress test test is negative for Lexiscan infusion induced chest pain. 3. Results of the nuclear portion of the test is as below Impression 1. There is no evidence of significant ischemia or infarction. 2. Estimated ejection fraction is greater than 70%. Carotid Artery Duplex 12/23/2021 Interpretation Summary Normal right extracranial internal carotid. Mild (<50%) stenosis left extracranial internal carotid. Patent and antegrade vertebrals bilaterally. Cardiac Catheterization 12/25/2019 Impression 1. Severe LAD and Circumflex 2. Normal LV size and function Recommended Treatment -CABG Echocardiogram 12/10/2019 Impression -Exam indication: shortness of breath -The left ventricle is normal in size. Left ventricular systolic function is normal. EF=62 +/- 5% (2D biplane) Grade 1 left ventricular diastolic dysfunction. -The right ventricle is normal in size. Right ventricular systolic function is normal. -The left atrial cavity is mildly dilated. -There are no significant valvular abnormalities. -The patient has not had a prior CC echocardiographic exam for comparison. Labs: LDL Cholesterol, (0-130) 82 mg/dL HDL Cholesterol, (40-) 68 mg/dL Cholesterol, (200) 182 mg/dL Triglycerides, (-199) 160 mg/dL Diagnostics: Electrocardiogram Echocardiogram Stress Test Stress Test Nuclear Medicine Chest X-Ray Carotid Duplex Past Visits: Cardiology Visit 01/03/25 Assessment and Plan Assessment and Plan (1) Chest pain, unspecified: Status: Acute Qualifiers: Chest pain type: precordial pain Qualified Code(s): R07.2 - Precordial pain Plan: On account of chest pain and potentially upcoming orthopedic surgery, she will proceed with stress test. Her last stress test in November 2023 showed no significant ischemia or infarction. Depending on results, further recommendation will be made. (2) Atherosclerotic heart disease of [place] coronary artery without angina pectoris: Status: Acute Qualifiers: Lummi vs. transplanted heart: [place] heart Qualified Code(s): I25.10 -Atherosclerotic heart disease of [place] coronary artery without angina pectoris Plan: Patient has a history of known coronary disease status post bypass graft surgerySeptember 2019. Echocardiogram in 2019 showed LV function 62?5%. She will proceed with stress test to assess chest pain further. Depending on results, further recommendation be made. (3) Hyperlipidemia: Status: Chronic Qualifiers: Hyperlipidemia type: pure hypercholesterolemia Qualified Code(s): E78.00 - Pure hypercholesterolemia, unspecified Plan: Lipid panel on 08/30/2023 showed total cholesterol: 182, HDL: 68, LDL: 82, and glycerides: 160. She was reminded of LDL goal of 70 and below for secondary prevention. However this is noted in the setting of HDL 68. She will continue current medical therapy and we will continue to monitor. (4) Hypertension: Status: Chronic Qualifiers: Hypertension type: primary hypertension Qualified Code(s): I10 - Essential (primary) hypertension Plan: Patient's blood pressure is well-controlled. We will continue to monitor. We will not make any medication regimen changes. Orders: Orders Nuclear Stress Test - Chemical 01/03/25 I25.10 - Atherosclerotic heart disease of [place] coronary artery without angina pectoris, R07.2 - Precordial pain, Z95.1 - Presence of aortocoronary bypass graft Plan Details Follow Up: PCP Lipids (For Continuity Of Care) 12 Months () Coding Level of Care Code Off vis,est,level 4 Diagnoses Precordial pain R07.2 Chest pain type: precordial pain Atherosclerosis of [place] coronary artery of [place] heart without angina pectoris I25.10 Lummi vs. transplanted heart: [place] heart Pure hypercholesterolemia E78.00 Hyperlipidemia type: pure hypercholesterolemia Primary hypertension I10 Hypertension type: primary hypertension Coding Level of Care Code Off vis,est,level 4 Diagnoses Precordial pain R07.2 Chest pain type: precordial pain Atherosclerosis of [place] coronary artery of [place] heart without angina pectoris I25.10 Lummi vs. transplanted heart: [place] heart Pure hypercholesterolemia E78.00 Hyperlipidemia type: pure hypercholesterolemia Primary hypertension I10 Hypertension type: primary hypertension Clinical Quality Measures Falls Risk Screening/Assistive Devices Have you fallen in the past year?: No Cardiac Ejection fraction %: 62 01/08/25 0811 <Electronically signed by Rajat LE> Date _ Rajat LE Cosigner Signature: Date (if applicable) CC: Dr. Maria Teresa Goff DO; Dr. Willam Benavidez MD ~ [facility] Work Phone: [phone] Telephone encounter Note* Telephone Encounter - Marjan Edenlock - 12/03/2024 8:18 AM EDT Spoke to patient and rescheduled BIOLOGY LABORATORY ASSISTANT [facility] the [id number] Miscellaneous Notes* Telephone Encounter - Marjan Barroso Dariana - 12/03/2024 8:18 AM EDT Spoke to patient and rescheduled BIOLOGY LABORATORY ASSISTANT appt to the [facility] office documented in this [id number] Telephone encounter Note* Telephone Encounter - Carisa Dawn - 11/30/2024 11:44 AM EDT Name of caller: Nadira Contact phone number: [phone] Relationship to Patient: patient Provider: Mao Levy: Rheum Chief Complaint/Reason for Call: Pt calling in because she received a call to schedule at the [facility] and would like to do that if possible. Please advise. Best time of day caller can be reached: Any Patient advised that office/PCP has 24-48 business hours to return their call: [id number] Miscellaneous Notes* Telephone Encounter - Carisa Dawn - 11/30/2024 11:44 AM EDT Name of caller: Nadira Contact phone number: [phone] Relationship to Patient: patient Provider: Mao Levy: Rheum Chief Complaint/Reason for Call: Pt calling in because she received a call to schedule at the [facility] and would like to do that if possible. Please advise. Best time of day caller can be reached: Any Patient advised that office/PCP has 24-48 business hours to return their call: documented in this [facility]05-15-2025 Telephone encounter Note* Telephone Encounter - Danitza Rolle MA - 08/23/2024 4:41 PM EDT Called appt made with Dr. Cavanaugh [id number] Miscellaneous Notes* Telephone Encounter - Danitza Rolle MA - 08/23/2024 4:41 PM EDT Called appt made with Dr. Cavanaugh * Telephone Encounter - Shefali Hoyos - 08/20/2024 1:57 PM EDT Name of Caller: Nadira Contact Reason for Appointment: Nadira called advising to schedule her new patient referral appointment. Please call patient back and advise. Office Name: Rheumatology * Telephone Encounter - Marjan Westbrook - 08/16/2024 9:00 AM EDT Left voice message for pt to call to sk new pt appt. documented in this [facility]05-12-2025 NoteName of Caller: Nadira Contact Reason for Appointment: Nadira called advising to schedule her new patient referral appointment. Please call patient back and advise. Office Name: [facility]05-12-2025 Telephone encounter Note* Telephone Encounter - Shefali Hoyos - 08/20/2024 1:57 PM EDT Name of Caller: Nadira Contact Reason for Appointment: Nadira called advising to schedule her new patient referral appointment. Please call patient back and advise. Office Name: Rheumatology [id number] Miscellaneous Notes* Telephone Encounter - Shefali Vogt Soha - 08/20/2024 1:57 PM EDT Name of Caller: Nadira Contact Reason for Appointment: Nadira called advising to schedule her new patient referral appointment. Please call patient back and advise. Office Name: Rheumatology * Telephone Encounter - Marjan Westbrook - 08/16/2024 9:00 AM EDT Left voice message for pt to call to new pt appt. documented in this [facility]05-08-2025 Telephone encounter Note* Telephone Encounter - Marjan Westbrook - 08/16/2024 9:00 AM EDT Left voice message for pt to call to new pt appt. [id number] Miscellaneous Notes* Telephone Encounter - Marjan Westbrook - 08/16/2024 9:00 AM EDT Left voice message for pt to call to new pt appt. documented in this [facility]05-06-2025 Telephone encounter Note* Telephone Encounter - Marjan Westbrook - 08/14/2024 11:08 AM EDT Left voice message for pt to call to new pt appt. [facility] [id number] Miscellaneous Notes* Telephone Encounter - Marjan Westbrook - 08/14/2024 11:08 AM EDT Left voice message for pt to call to sk new pt appt. documented in this [facility]04-24-2025 Telephone encounter Note* Telephone Encounter - Tiff Wadsworth - 08/02/2024 9:04 AM EDT Name of caller: Nadira Contact phone number: [phone] Relationship to Patient: patient Provider: Dr. Cavanaugh Practice: [facility] Chief Complaint/Reason for Call: Nadira states she needs to cancel her 08/02/24 3:00 PM new patient appointment today and that she will call back at a later time to reschedule. Please be advised. Best time of day caller can be reached: Any Patient advised that office/PCP has 24-48 business hours to return their call: Yes [id number] Miscellaneous Notes* Telephone Encounter - Tiff Wadsworth - 08/02/2024 9:04 AM EDT Name of caller: Nadira Contact phone number: [phone] Relationship to Patient: patient Provider: Dr. Cavanaugh Practice: [facility] Chief Complaint/Reason for Call: Nadira states she needs to cancel her 08/02/24 3:00 PM new patient appointment today and that she will call back at a later time to reschedule. Please be advised. Best time of day caller can be reached: Any Patient advised that office/PCP has 24-48 business hours to return their call: Yes * Telephone Encounter - Marjan Westbrook - 05/29/2024 3:43 PM EST Called patient made apt documented in this [facility]02-18-2025 Telephone encounter Note* Telephone Encounter - Marjan Westbrook - 05/29/2024 3:43 PM EST Called patient made apt [id number] Miscellaneous Notes* Telephone Encounter - Marjan Westbrook - 05/29/2024 3:43 PM EST Called patient made apt documented in this [facility]10-30-2024 Telephone encounter Note* Telephone Encounter - Ene Layton MA - 02/08/2024 4:10 PM EDT Left message for patient in regards of her 03/07/2024 appointment with Fariba Ortega APRN., CNP . Patient needs scheduled with Cesario Hall APRN.CNP as an ER follow up from [facility] with history of CABG. Ene Layton MA February 08, 2024 4:12 PM [facility]10-30-2024 Miscellaneous Notes* Telephone Encounter - Ene Layton MA - 02/08/2024 4:10 PM EDT Left message for patient in regards of her 03/07/2024 appointment with Fariba Ortega APRN., CNP . Patient needs scheduled with Cesario Hall APRN.CNP as an ER follow up from [facility] Hypert[facility] with history of CABG. Ene Layton MA February 08, 2024 4:12 PM documented in this [facility]11-[facility]-2023 History and physical note Author Mychal Steinberg [facility] February 11, 2023 1:09pm Note Date/Time February 11, 2023 1 :09pm [facility] Medical Records Department [address] [place] [address] History & Physical Exam 02/11/23 1309 MR#: [id number] Acct: [id number] Name: NADIRA BENÍTEZ Rep #:[id number] : 1955 67 From: Mychal Friend DO PCP: Dr. Maria Teresa Goff, DO [place] [facility] [place] [address] History and Physical Date of Admission: 02/11/23 67 F who presents to the office today for follow up. GI Dr. Gomez established for management of IBS with loose stools, abdominal pain and bloating?Colonoscopy 01.12.18?without acute/chronic visual finding. Pathology without changes.? PCP OV 09.01.22 with current loose, frequent stools that have been occurring for several years and recent, gradual worsening.? OV 01.21.23 Pt reports hx of IBS the past 4 years with worsening sx. Had a bowelresection 15 years ago r/t diverticulitis. Experiences nausea, abdominal pain, bloating and diarrhea. Sx made worse after eating. Feels as though she gets fullquickly and cannot finish a meal due to increased pain. Has urgent diarrhea after meals. Has tried Lomotil for diarrhea but says it makes her constipated sometimes. Zofran helpful for nausea. ROS Const Constitutional: Positive for fatigue and weight change ENT ENT: No difficulty swallowing Gastro GI: Positive for abdominal pain, bloating, change in bowel habits, constipation,diarrhea, excessive flatus and nausea/dyspepsia; No belching, change in stool character, coffee ground emesis, cramping, heartburn, difficulty swallowing, feeling full early, incontinent of stools, Vomiting blood/hematemesis, Blood in stool, loose stools, Black,tarry stools, pain with swallowing, vomiting or other Musc Musculoskeletal: Positive for joint pain, muscle weakness, stiffness and Arthritis Skin Skin: No yellowing of the eye or itchy eyes Psych Psychiatric: Positive for anxiety and Positive for depression Endo Endocrine: Positive for fatigue and weight change Aller/Imm Allergy/Immunologic: No itchy eyes Troy/Lymp Hematologic/Lymphatic: No easy bleeding or easy bruising Exam Const General: cooperative and comfortable Nutritional Appearance: average body habitus and well nourished [facility] Head: normal to inspection Ears: hearing grossly normal bilaterally Nose: external nose normal Face and sinus: normal facial exam Mouth: oral mucosae normal Throat: posterior oropharynx normal Eyes General: appearance normal, both eyes and all related structures Neck Neck: normal visual inspection Chest Chest palpation & inspection: normal inspection of the chest and normal palpation of entire chest wall Resp Effort & Inspection: normal respiratory effort Auscultation: Bilateral: Clear to Auscultation Cardio Palpation: normal PMI Rate: regular rate Rhythm: regular rhythm GI Inspection: normal to inspection Auscultation: normal bowel sounds Percussion: normal to percussion Palpation: no hepatosplenomegaly Skin General: no rashes or lesions noted Neuro General: patient alert Extrem General: normal to inspection Psych Affect: normal affect Quality Reporting Tobacco Screening ([facility] 138) Smoking Status: Former smoker Assessment and Plan Assessment and Plan (1) Diarrhea: Status: Acute Qualifiers: Diarrhea type: functional diarrhea Qualified Code(s): K59.1 - Functional diarrhea Plan: Her diarrhea started 4 years prior, described as 5-6 loose daily non-bloody bowel movements with associated cramping. Overtime, it increased in frequency and was associated with fecal incontinence and 25 lb weight loss. Physical exam and basic laboratory testing was unremarkable. She did have a colonoscopy approximately 5 years ago for polyp surveillance. She does not know if she underwent any biopsies for microscopic colitis and if the terminal ileum was evaluated during that time. I do not think it was because she said that her symptoms were not that bad at that time. When she started losing weight and needing Imodium on a daily basis it became more of a problem to her. She does have possible rheumatoid arthritis and has been on methotrexate and Plaquenil for multiple years. She says her liver function tests have been normal and they have been monitoring by her primary care provider. She does have a history of diverticular disease resulting in diverticulitis and diverticular stricture status post segmental resection of the sigmoid colon withprimary anastomosis. She denies any rashes, ulcers or lesions. She also deniesany myalgias. She does get intermittent fatigue but she associates that with her previous rheumatologic diagnosis. She will undergo stool testing and biochemical testing and radiologic imaging. Depending on what those studies show she may need an upper or lower endoscopy toevaluate her upper lower GI tract and or confirm any findings that may be discovered on imaging or biochemical testing or stool testing. Orders: Orders FRANCISCO JAVIER + Protein Elect, Serum Today R19.7 - Diarrhea, unspecified CBC W/Diff, Automated Today R19.7 - Diarrhea, unspecified ANCA Today R19.7 - Diarrhea, unspecified Celiac Disease Profile Today R19.7 - Diarrhea, unspecified CRP Today R19.7 - Diarrhea, unspecified Erythrocyte Sed Rate Today R19.7 - Diarrhea, unspecified Immunoglobulin E Today R19.7 - Diarrhea, unspecified Miscellaneous Lab Procedure Today R19.7 - Diarrhea, unspecified Amylase Today R19.7 - Diarrhea, unspecified Lipase Today R19.7 - Diarrhea, unspecified Fecal Fat, Qualitative Today R19.7 - Diarrhea, unspecified Pancreatic Elastase, Fecal Today R19.7 - Diarrhea, unspecified STEPHEN Comprehensive Panel Today R19.7 - Diarrhea, unspecified Calprotectin, Stool Today R19.7 - Diarrhea, unspecified Stool Lactoferrin/WBC Today K58.9 - Irritable bowel syndrome without diarrhea, R19.7 - Diarrhea, unspecified Thyroid Stim Hormone (TSH) Today R19.7 - Diarrhea, unspecified Vitamin B12 Today R19.7 - Diarrhea, unspecified Vitamin D 1,25-Dihydroxy Today R19.7 - Diarrhea, unspecified Free T3 Today R19.7 - Diarrhea, unspecified T4 Free Direct Today R19.7 - Diarrhea, unspecified Folates, (Folic Acid) Today R19.7 - Diarrhea, unspecified ENTERIC PATHOGEN PANEL STOOL Today K58.9 - Irritable bowel syndrome without diarrhea, R19.7 - Diarrhea, unspecified CDIFF (PCR) Today R19.7 - Diarrhea, unspecified OVA+PARA w/Giardia EIA [id number] Today R19.7 - Diarrhea, unspecified H. PYLORI STOOL AG Today R19.7 - Diarrhea, unspecified Magnesium Today R19.7 - Diarrhea, unspecified Phosphorus Today R19.7 - Diarrhea, unspecified Enterography Abd/Pel Today R19.7 - Diarrhea, unspecified Gastrin, Serum Today R19.7 - Diarrhea, unspecified Coding Level of Care Code Off vis,new,level 4 Diagnoses Functional diarrhea K59.1 Diarrhea type: functional diarrhea I have examined the patient and the H&P has been reviewed. There are no clinical changes since date of exam. 02/11/23 1797 <Electronically signed by Mychal Steinberg DO> Verónicaer Signature (if applicable): CC: Dr. Maria Teresa Goff, DO; Mychal Steinberg, DO~ Signed [facility] Work Phone: [phone]) 676-551511-03-2023 [facility]23 Procedure note [facility]11-03-2023 Procedure [facility] 01-10-2023 NoteHNO ID: [id number] Author: Humphrey Riley APRN.SALOMÓN Service: ? Author Type: Nurse Practitioner Type: Progress Notes Filed: 01/10/2023 1:29 PM Note Text: Patient came in with complaints of lower abdominal pain. Patient says is increasing intense intensity over the last few days. Patient says she has been dealing with significant amounts of diarrhea and nausea and stomach pain for few months. Patient says her doctor did place her on medications for the nausea and diarrhea. Patient says they do not seem to be helping pain seems to be intensifying. Patient is lost 15 pounds recently due to not being able to eat. At this time patient is being referred to the emergency room for full evaluation. Patient is extremely tender on that right lower quadrant.[facility]10-02-2023 History of Present illness Narrative* Humphrey Riley APRN.SALOMÓN - 01/10/2023 1:26 PM EDT Patient came in with complaints of lower abdominal pain. Patient says is increasing intense intensity over the last few days. Patient says she has been dealing with significant amounts of diarrhea and nausea and stomach pain for few months. Patient says her doctor did place her on medications for the nausea and diarrhea. Patient says they do not seem to be helping pain seems to be intensifying. Patient is lost 15 pounds recently due to not being able to eat. At this time patient is being referred to the emergency room for full evaluation. Patient is extremely tender on that right lower quadrant. [facility]23 Discharge summary Author Ravinder Hager [facility] November 07, 2022 2:39pm Note Date/Time November 07, 2022 12:0 9pm [facility] Medical Records Department [address] [place] [address] Emergency Department Summary 11/07/22 MR#: [id number] Acct: [id number] Name: NADIRA BENÍTEZ Rep #:[id number] : 1955 67 From: Ravinder Oconnor PCP: Dr. Maria Teresa Goff, DO Status:REG ER Location: ED HPI History of Present Illness Chief Complaint: Upper Extremity Injury [facility] Medical History anterior neck fusion Anxiety Atherosclerotic heart disease of [place] coronary artery without angina pectoris Benign hypertension Coronary artery disease Diarrhea Difficulty balancing Diverticulitis Diverticulosis of colon without diverticulitis Gastroenteritis GERD (gastroesophageal reflux disease) History of depression history of posterior neck fusion history of right knee tumor Hyperlipidemia Hypertension Iron deficiency anemia Knee pain Limb weakness neck posterior and anterior repair neck/back pain Osteoarthritis Osteoporosis Persistent insomnia Premature atrial contraction Premature ventricular contraction Rheumatoid arthritis Shoulder pain Stomach ulcer Vitamin B12 deficiency Vitamin D deficiency Home Medications pantoprazole 40 mg tablet,delayed release 40 mg PO DAILY 02/24/13 [History Last Taken 08/27/14 06:00] alprazolam 0.5 mg tablet 0.5 mg PO TID PRN PRN Anxiety 05/25/19 [History Last Taken Unknown] aspirin 81 mg tablet,delayed release (Adult Aspirin Regimen) 81 mg PO DAILY 05/25/19 [History Last Taken Unknown] methotrexate sodium 2.5 mg tablet 25 mg PO QWEEK 05/25/19 [History Last Taken Unknown] pyridoxine (vitamin B6) 25 mg tablet 25 mg PO DAILY 05/25/19 [History Last Taken Unknown] metoprolol tartrate 50 mg tablet 50 mg PO TID 01/08/20 [History Last Taken Unknown] calcium citrate 500 mg PO DAILY 11/12/21 [History Last Taken Unknown] cholecalciferol (vitamin D3) 25 mcg (1,000 unit) tablet 3,000 unit PO DAILY 11/12/21 [History Last Taken Unknown] cyanocobalamin (vitamin B-12) 500 mcg lozenges 1,000 mcg PO DAILY 11/12/21 [History Last Taken Unknown] folic acid 800 mcg tablet 2.4 mg PO DAILY 11/12/21 [History Last Taken Unknown] gabapentin 600 mg tablet 1,200 mg PO TID 11/12/21 [History Last Taken Unknown] hydroxychloroquine 200 mg tablet 400 mg PO DAILY 11/12/21 [History Last Taken Unknown] magnesium oxide 400 mg PO DAILY 11/12/21 [History Last Taken Unknown] multivitamin 1 tab PO DAILY 11/12/21 [History Last Taken Unknown] zolpidem 10 mg tablet (Ambien) 10 mg PO QHS 11/12/21 [History Last Taken Unknown] atorvastatin 80 mg tablet 80 mg PO QHS 05/24/22 [History Last Taken Unknown] duloxetine 30 mg capsule,delayed release 90 mg PO DAILY 05/24/22 [History Last Taken Unknown] oxycodone-acetaminophen 5 mg-325 mg tablet (Percocet) 1 tab PO Q6H PRN pain 5 days #20 tabs 11/07/22 [Rx Last Taken Unknown] Allergy/AdvReac Type Severity Reaction Status Date / Time sulfamethoxazole Allergy Rash Verified 09/15/22 12:32 [From Bactrim] trimethoprim [From Bactrim] Allergy Rash Verified 09/15/22 12:32 Family History Father Leukemia Brother Heart disease Mother CAD (coronary artery disease) Heart disease Sister Chronic glomerulonephritis Breast cancer Sister Heart disease Kidney disease Surgical History History of bilateral oophorectomies History of bowel resection History of coronary artery bypass surgery (~12/27/19) History of tonsillectomy and adenoidectomy History of total knee replacement (TKR) Status post right rotator cuff repair Social History Smoking Status: Former smoker alcohol intake: never substance use type: does not use caffeine: Yes Type: coffee Number of servings: 2 EXAM Physical Exam Const Vital Signs: 11/07/22 12:01 Temperature 97.5 F L Temperature Source Temporal Pulse Rate 54 L Respiratory Rate 16 Blood Pressure 186/98 H Blood Pressure Mean 127 Pulse Ox 99 Oxygen Delivery Method Room Air MDM MDM MDM Narrative Medical decision making narrative: HISTORY OF PRESENT ILLNESS: 67-year-old female here with left wrist pain. The patient states she had mechanical fall today in the garage. She states she injured her left wrist and left knee. She also notes elbow pain. Denies any head trauma loss of consciousness. Right to the right hand. Denies any focal numbness weakness or loss sensation REVIEW OF SYSTEMS: Pertinent positives: Wrist pain, elbow pain, knee pain Pertinent negatives: Head trauma, LOC PHYSICAL EXAM: Nursing triage notes reviewed, Vital signs reviewed Nursing triage notes reviewed, Vital signs reviewed Constitutional: please see mdm HENT: MMM Eyes: Pupils equal round and reactive to light, Extraocular muscles intact Neck: No stridor, no JVD, full neck ROM Lungs: Clear to auscultation, No wheezing or rales. No increased work of breathing, no conversational dyspnea, no accessory muscle use, no nasal flaring. No respiratory distress noted Heart: Regular rate and rhythm, No murmurs, No rubs and No gallops, 2+ distal pulses (radial, femoral, posterior tibial) in all extremities Abdomen: Soft, there is no tenderness, rigidity, rebound or guarding, no obviousperitoneal signs, no palpable pulsatile abdominal masses, no auscultated abdominal bruit : No CVAT Extremities: No edema, TTP over left elbow, obvious left wrist deformity, TTP over left wrist, compartments are soft, extremities are warm well perfused, there is also TTP over left knee with ecchymosis and bruising. Intact flexion extension left knee. Intact ligamentous structures with anterior drawer, posterior drawer valgus and varus stress testing. Neuro: N intact 5/5 strength with ok sign (median), intact finger abduction (ulnar) intact wrist extension (radial n). Intact sensation in the radial, ulnar, and median nerve distributions. Intact sensation L1-S1 dermatomal distributions. Intact 5/5 strength in hip flexion (T12-L3). Knee extension (L2-L4). Ankle dorsiflexion (L4-L5). Ankle plantar flexion (S1). Great toe extension (L5). 2+ patellar and Achilles DTRs. Skin: No rash or lesions noted MEDICAL DECISION MAKING: Chief Complaint: Wrist pain External records reviewed: No recent advanced imaging of the involved extremity Factors affecting care: CAD, hyperlipidemia, ETHAN ALL IMAGES (IF OBTAINED) HAVE BEEN PERSONALLY REVIEWED AND INTERPRETED BY MYSELF. MDM Narrative: Patient was initially hypertensive otherwise hemodynamically stable. Wrist examremarkable for I considered the following differential diagnosis: Wrist fracture, dislocation, contusion, elbow fracture dislocation, knee fracture dislocation I obtained an x-ray to further elucidate the etiology of the patient complaints. X-rays of the patient's left wrist, forearm, elbow and left knee were read interpreted by myself. X-rays were remarkable for obvious left wrist fracture fracture was comminuted and had a component of palmar displacement. Patient wasplaced in a l sugar-tong splint. She is neurovascular intact before and after splinting. Patient is given orthopedic follow-up. She is given strict return precautions. The patient and/or family, caregivers express understanding. The patient and/orfamily, caregivers agrees with the plan. Shared decision making: I will have a discussion with the patient and or visitors regarding risk/benefits of further testing or admission. They will be made aware of of the risk/benefits inherent in this decision they will be given the opportunity to voice understanding. Total critical care time today provided was at least 0 minutes. This excludes separately billable procedures. Critical care time (if documented) is secondary to the patient having high probability of clinically significant/life threatening deterioration in the patient's condition which required my urgent intervention. Procedures Upper Extremity Splints Upper Extremity Splint: Orthoglass Splint Fabrication: Fabricated Location: Left Discharge Plan Triage Chief Complaint: Upper Extremity Injury ED Provider: Ravinder Hager Dx/Rx/DC Orders Clinical Impression: Fracture of wrist Instructions: Wrist Fracture Prescriptions: New oxycodone-acetaminophen [Percocet] 5-325 mg tablet 1 tab PO Q6H PRN (Reason: pain) 5 Days Qty: 20 0RF No Action methotrexate sodium 2.5 mg tablet 25 mg PO QWEEK aspirin [Adult Aspirin Regimen] 81 mg tablet,delayed release (DR/EC) 81 mg PO DAILY alprazolam 0.5 mg tablet 0.5 mg PO TID PRN PRN (Reason: Anxiety) pyridoxine (vitamin B6) 25 mg tablet 25 mg PO DAILY folic acid 800 mcg tablet 2.4 mg PO DAILY gabapentin 600 mg tablet 1,200 mg PO TID zolpidem [Ambien] 10 mg tablet 10 mg PO QHS calcium citrate 250 mg calcium tablet 500 mg PO DAILY magnesium oxide 400 mg magnesium capsule 400 mg PO DAILY multivitamin Tablet 1 tab PO DAILY atorvastatin 80 mg tablet 80 mg PO QHS duloxetine 30 mg capsule,delayed release(DR/EC) 90 mg PO DAILY pantoprazole 40 MG tablet 40 mg PO DAILY metoprolol tartrate 50 MG tablet 50 mg PO TID hydroxychloroquine 200 mg tablet 400 mg PO DAILY cholecalciferol (vitamin D3) 25 mcg (1,000 unit) tablet 3,000 unit PO DAILY cyanocobalamin (vitamin B-12) 500 mcg lozenge 1,000 mcg PO DAILY Primary Care Provider: Maria Teresa Goff Referrals: Jd Coronado DO [Med Staff - Active Staff] - Activity Restrictions/Additional Instructions: Thank you for trusting us with your care today! Please take Tylenol (2 pills, 650 mg), ibuprofen (2 pills, 400 mg) every 6 hoursas needed for pain and fever control. If this does not control your pain please take Percocet. Please not take Tylenol and Percocet together as Percocet contains Tylenol. You should try to remain nonweightbearing your left upper extremity secondary towrist fracture. Please return to the emergency department if your symptoms change or worsen. Specifically develop worsening pain, discoloration, numbness, coolness to touch of the involved extremity. Please follow with your primary care physician for further outpatient evaluationand management. Disposition Disposition: Home, Self Care What to do if you have Problems For any increased pain, shortness of breath, bleeding, nausea or vomiting, chestpain, or any unexpected problems, contact your Primary Care Provider. Call [facility] ([phone]) or report to the closest Emergency Room. Call 911 if necessary. 11/07/22 1439 <Electronically signed by Ravinder Hager DO> Cosigner Signature (if applicable): CC: Dr. Maria Teresa Goff DO ~ Signed [facility] Work Phone: 1(893) 437-566906-04-2023 NoteHNO ID: [id number] Author: Daija Mejía APRN.DEVELOPMENT AND HOUSING DIRECTOR Service: ? Author Type: Nurse Practitioner Type: Progress Notes Filed: 09/12/2022 1:37 PM Note Text: This note was created using [employer]. Subjective Nadira Benítez is a 67 year old female. 67 year old female with PMH CAD, CABG, anemia, and obesity presents with sore throat Acute onset 6 days ago +sore throat Feels like glass +low grade fever +runny nose Ear "feel sore" Denies cough. Denies SOB. Denies dyspnea Denies skin rash or lesions. The history is provided by the patient. No supervisor modern languages was used. Sore Throat This is a new problem. The current episode started 1 to 4 weeks ago. The problem has been unchanged. Neither side of throat is experiencing more pain than the other. The maximum temperature recorded prior to her arrival was 100.4 - 100.9 F. The pain is at a severity of 6/10. The pain is moderate. Associated symptoms include congestion, ear pain and headaches. Pertinent negatives include no abdominal pain, coughing, diarrhea, drooling, ear discharge, hoarse voice, plugged ear sensation, neck pain, shortness of breath, stridor, swollen glands, trouble swallowing or vomiting. She has had no exposure to strep or mono. She has tried nothing for the symptoms. The treatment provided no relief. PAST MEDICAL HISTORY Diagnosis Date Anemia, unspecified Cardiac dysrhythmia, unspecified Cervical vertebral fusion 2014 Dysthymic disorder Esophageal reflux Generalized osteoarthrosis, unspecified site knees Lumbago PAST SURGICAL HISTORY Procedure Laterality Date ANTERIOR INTERBODY FUSION, CERVICAL 2015 CABG (3) VEIN GRAFTS AND ARTERIAL GRAFT(S) 12/27/2019 PAST SURGICAL HISTORY OF colon resected PAST SURGICAL HISTORY OF cyst knee ROTATOR CUFF REPAIR Right 2015 ALLERGIES Bactrim [Sulfamethoxazole-Trimethoprim] MEDICATIONS celecoxib (CELEBREX) 200 mg capsule Take 200 mg by mouth twice daily. metoprolol tartrate, short acting, (LOPRESSOR) 50 mg tablet Take 1.5 tablets by mouth twice daily. ascorbic acid, vitamin C, (VITAMIN C) 500 mg tablet Take 1 tablet by mouth twice daily before meals. aspirin 81 mg chewable tablet Take Aspirin 162 mg (2 tablets) daily until 01/16 when starting Plavix, then decrease Aspirin to 81 mg daily. ferrous sulfate 325 mg (65 mg iron) tablet Take 1 tablet by mouth once daily. acetaminophen (TYLENOL) 500 mg tablet Take 2 tablets by mouth every 6 hours as needed for Pain. hydrOXYchloroQUINE (PLAQUENIL) 200 mg tablet Take 200 mg by mouth twice daily. methotrexate 2.5 mg tablet Take 8 tablets by mouth once each week. folic acid 1 mg tablet Take 1 tablet by mouth once daily. gabapentin (NEURONTIN) 600 mg tablet Take 1,200 mg by mouth three times daily. atorvastatin (LIPITOR) 80 mg tablet Take 80 mg by mouth once daily. Cholecalciferol, Vitamin D3, 25 mcg (1,000 unit) cap Take 2,000 Units by mouth once daily. cyanocobalamin (VITAMIN B-12) 500 mcg tablet Take by mouth once daily. magnesium oxide 400 mg cap Take by mouth once daily. aspirin(ECOTRIN LOW STRENGTH 81 MG TAB) Take one(1) tablet daily. calcium carbonate/vitamin d3(CALCIUM 500 WITH VITAMIN D 500 MG (1,250 MG)-200 UNIT TAB) Take one(1) tablet two(2) times daily. ALL PURPOSE MULTIVITAMIN-MIN ORAL TAB Take one(1) tablet daily. predniSONE (DELTASONE) 10 mg tablet Take 4 tabs daily for 3 days, then 2 tabs daily for 3 days, then 1 tab daily for 3 days with food. metoprolol tartrate, short acting, (LOPRESSOR) 50 mg tablet Take 1.5 tablets by mouth twice daily. pyridoxine, vitamin B6, (VITAMIN B-6) 100 mg tablet Take 25 mg by mouth once daily. DULoxetine (CYMBALTA) 30 mg capsule Take 30 mg by mouth once daily. ALENDRONATE SODIUM (FOSAMAX ORAL) Take 70 mg by mouth once each week. (Patient not taking: Reported on 09/12/2022) pantoprazole DR (PROTONIX) 20 mg tablet Take 20 mg by mouth once daily. zolpidem (AMBIEN) 10 mg tab Take by mouth at bedtime as needed. ALPRAZolam (XANAX) 0.5 mg tablet Take 0.5 mg by mouth three times daily as needed for Anxiety. FAMILY HISTORY Problem Relation Age of Onset Cancer Father LEUKEMIA AGE 56 Osteoporosis Mother Heart Mother CAD,CHF, renal failure Breast Cancer Sister AGE 46 CA OF BONE Breast Cancer Maternal Aunt Breast Cancer Other MATERNAL COUSIN Diabetes Brother other (RENAL DIS) Sister DIALYSIS FOR 23 YRS, Social History Tobacco Use Smoking status: Former Smokeless tobacco: Never Tobacco comments: quit at least 10 years ago Substance Use Topics Alcohol use: Yes Comment: 2 times a year Drug use: No Review of Systems Constitutional: Positive for activity change, fatigue and fever. HENT: Positive for congestion, ear pain, postnasal drip, rhinorrhea and sore throat. Negative for drooling, ear discharge, hoarse voice and trouble swallowing. Eyes: Positive for itching. Negative for photophobia (more content not included)...[facility]06-04-2023 History of Present illness Narrative* Daija Mejía APRN.DEVELOPMENT AND HOUSING DIRECTOR - 09/12/2022 1:25 PM EDT This note was created using [employer] [place]. Subjective Nadira Benítez is a 67 year old female. 67 year old female with PMH CAD, CABG, anemia, and obesity presents with sore throat Acute onset 6 days ago +sore throat Feels like glass +low grade fever +runny nose Ear "feel sore" Denies cough. Denies SOB. Denies dyspnea Denies skin rash or lesions. The history is provided by the patient. No supervisor modern languages was used. Sore Throat This is a new problem. The current episode started 1 to 4 weeks ago. The problem has been unchanged. Neither side of throat is experiencing more pain than the other. The maximum temperature recorded prior to her arrival was 100.4 - 100.9 F. The pain is at a severity of 6/10. The pain is moderate. Associated symptoms include congestion, ear pain and headaches. Pertinent negatives include no abdominal pain, coughing, diarrhea, drooling, ear discharge, hoarse voice, plugged ear sensation, neck pain, shortness of breath, stridor, swollen glands, trouble swallowing or vomiting. She has had no exposure to strep or mono. She has tried nothing for the symptoms. The treatment provided no relief. PAST MEDICAL HISTORY Diagnosis Date Anemia, unspecified Cardiac dysrhythmia, unspecified Cervical vertebral fusion 2014 Dysthymic disorder Esophageal reflux Generalized osteoarthrosis, unspecified site knees Lumbago PAST SURGICAL HISTORY Procedure Laterality Date ANTERIOR INTERBODY FUSION, CERVICAL 2015 CABG (3) VEIN GRAFTS & ARTERIAL GRAFT(S) 12/27/2019 PAST SURGICAL HISTORY OF colon resected PAST SURGICAL HISTORY OF cyst knee ROTATOR CUFF REPAIR Right 2014 ALLERGIES Bactrim [Sulfamethoxazole-Trimethoprim] MEDICATIONS celecoxib (CELEBREX) 200 mg capsule Take 200 mg by mouth twice daily. metoprolol tartrate, short acting, (LOPRESSOR) 50 mg tablet Take 1.5 tablets by mouth twice daily. ascorbic acid, vitamin C, (VITAMIN C) 500 mg tablet Take 1 tablet by mouth twice daily before meals. aspirin 81 mg chewable tablet Take Aspirin 162 mg (2 tablets) daily until 01/16 when starting Plavix, then decrease Aspirin to 81 mg daily. ferrous sulfate 325 mg (65 mg iron) tablet Take 1 tablet by mouth once daily. acetaminophen (TYLENOL) 500 mg tablet Take 2 tablets by mouth every 6 hours as needed for Pain. hydrOXYchloroQUINE (PLAQUENIL) 200 mg tablet Take 200 mg by mouth twice daily. methotrexate 2.5 mg tablet Take 8 tablets by mouth once each week. folic acid 1 mg tablet Take 1 tablet by mouth once daily. gabapentin (NEURONTIN) 600 mg tablet Take 1,200 mg by mouth three times daily. atorvastatin (LIPITOR) 80 mg tablet Take 80 mg by mouth once daily. Cholecalciferol, Vitamin D3, 25 mcg (1,000 unit) cap Take 2,000 Units by mouth once daily. cyanocobalamin (VITAMIN B-12) 500 mcg tablet Take by mouth once daily. magnesium oxide 400 mg cap Take by mouth once daily. aspirin(ECOTRIN LOW STRENGTH 81 MG TAB) Take one(1) tablet daily. calcium carbonate/vitamin d3(CALCIUM 500 WITH VITAMIN D 500 MG (1,250 MG)-200 UNIT TAB) Take one(1)tablet two(2) times daily. ALL PURPOSE MULTIVITAMIN-MIN ORAL TAB Take one(1) tablet daily. predniSONE (DELTASONE) 10 mg tablet Take 4 tabs daily for 3 days, then 2 tabs daily for 3 days, then 1 tab daily for 3 days with food. metoprolol tartrate, short acting, (LOPRESSOR) 50 mg tablet Take 1.5 tablets by mouth twice daily. pyridoxine, vitamin B6, (VITAMIN B-6) 100 mg tablet Take 25 mg by mouth once daily. DULoxetine (CYMBALTA) 30 mg capsule Take 30 mg by mouth once daily. ALENDRONATE SODIUM (FOSAMAX ORAL) Take 70 mg by mouth once each week. (Patient not taking: Reportedon 09/12/2022) pantoprazole DR (PROTONIX) 20 mg tablet Take 20 mg by mouth once daily. zolpidem (AMBIEN) 10 mg tab Take by mouth at bedtime as needed. ALPRAZolam (XANAX) 0.5 mg tablet Take 0.5 mg by mouth three times daily as needed for Anxiety. FAMILY HISTORY Problem Relation Age of Onset Cancer Father LEUKEMIA AGE 56 Osteoporosis Mother Heart Mother CAD,CHF, renal failure Breast Cancer Sister AGE 46 CA OF BONE Breast Cancer Maternal Aunt Breast Cancer Other MATERNAL COUSIN Diabetes Brother other (RENAL DIS) Sister DIALYSIS FOR 23 YRS, Social History Tobacco Use Smoking status: Former Smokeless tobacco: Never Tobacco comments: quit at least 10 years ago Substance Use Topics Alcohol use: Yes Comment: 2 times a year Drug use: No Review of Systems Constitutional: Positive for activity change, fatigue and fever. HENT: Positive for congestion, ear pain, postnasal drip, rhinorrhea and sore throat. Negative for drooling, ear discharge, hoarse voice and trouble swallowing. Eyes: Positive for itching. Negative for photophobia, pain, discharge, redness and visual disturbance. Respiratory: Negative for apnea, cough, chest tightness, shortness of breath and stridor. Cardiovascular: Negative for chest pain, palpitations and leg swelling. Gastrointestinal: Negative for abdominal pain, diarrhea and vomiting. Musculoskeletal: Negative for arthralgias, back pain and neck pain. Skin: Negative for color change, pallor, rash and wound. Allergic/Immunologic: Positive for environmental allergies. Negative for food allergies and immunocompromised state. Neurological: Positive for headaches. Negative for dizziness and facial asymmetry. Hematological: Negative for adenopathy. Does not bruise/bleed easily. Psychiatric/Behavioral: Negative for agitation and behavioral problems. Objective LMP 12/16/2004 BP 140/88 Pulse 65 Temp 36.8 C (98.3 F) Resp 21 Wt 90.2 kg (198 lb 12.8 oz) LMP 12/16/2004 SpO2 99% BMI 34.12 kg/m Physical Exam Vitals and nursing note reviewed. Constitutional: General: She is not in acute distress. Appearance: Normal appearance. She is normal weight. She is not ill-appearing, toxic-appearing or diaphoretic. HENT: Head: Normocephalic and atraumatic. Right Ear: Ear canal and external ear normal. Left Ear: Ear canal and external ear normal. Ears: Comments: Bilateral TM with moderate serous fluid noted. Nose: Nose normal. No congestion or rhinorrhea. Mouth/Throat: Mouth: Mucous membranes are moist. Pharynx: Posterior oropharyngeal erythema (posterior oropharynx) present. No oropharyngeal exudate. Eyes: General: Right eye: No discharge. Left eye: No discharge. Extraocular Movements: Extraocular movements intact. Conjunctiva/sclera: Conjunctivae normal. Pupils: Pupils are equal, round, and reactive to light. Cardiovascular: Rate and Rhythm: Normal rate and regular rhythm. Pulses: Normal pulses. Heart sounds: Normal heart sounds. No murmur heard. No friction rub. Pulmonary: Effort: Pulmonary effort is normal. No respiratory distress. Breath sounds: Normal breath sounds. No stridor. No wheezing, rhonchi or rales. Chest: Chest wall: No tenderness. Abdominal: General: Abdomen is flat. There is no distension. Palpations: Abdomen is soft. There is no mass. Tenderness: There is no abdominal tenderness. There is no right CVA tenderness, left CVA tenderness, guarding or rebound. Hernia: No hernia is present. Musculoskeletal: General: No swelling, tenderness, deformity or signs of injury. Normal range of motion. Cervical back: Normal range of motion and neck supple. No rigidity. Right lower leg: No edema. Left lower leg: No edema. Lymphadenopathy: Cervical: No cervical adenopathy. Skin: General: Skin is warm and dry. Coloration: Skin is not jaundiced or pale. Findings: No bruising, erythema, lesion or rash. Neurological: General: No focal deficit present. Mental Status: She is alert and oriented to person, place, and time. Cranial Nerves: No cranial nerve deficit. Sensory: No sensory deficit. Motor: No weakness. Coordination: Coordination normal. Gait: Gait normal. Psychiatric: Mood and Affect: Mood normal. Behavior: Behavior normal. Thought Content: Thought content normal. Judgment: Judgment normal. Assessment and Plan ASSESSMENT/PLAN: 1. Upper respiratory tract infection, unspecified type - ICD9: 465.9, ICD10: J06.9 - Discussed viral etiology and rationale for treatment. - Alere Strep Test NEGATIVE, no culture pending - Symptomatic treatment with prn analgesia - Supportive care with fluids and rest - The patient may also use OTC cough and cold meds as needed, nasal saline gtts and suction prn, and RX Prednisone taper. - Follow up in 3-5 days if symptoms persist or sooner if worsening of symptoms - Declines flu testing. - STREP A MOLECULAR (POC) Daija Mejía APRN.DEVELOPMENT AND HOUSING DIRECTOR [facility]* Diagnosis Onset Date Resolution Status Atherosclerotic heart diseas e of [place] coronary artery without angina pectoris acute Carotid artery stenosis acut e History of coronary artery bypass surgery December, acute Premature atrial contraction acute Premature ventricular contraction acute Benign hypertension chronic Hyperlipidemia [facility] Work Phone: [phone]) 114-337808-24-2020 History of Past illness Narrative* Problem Noted Date Resolved Date Angina of effort 12/03/2019 01/10/2020 Sprain of foot, unspecified site 08/26/2008 01/10/2020 documented as of this encounter (statuses as of 09/12/2022) [facility]08-24-[facility] History of Past illness Narrative* Problem Noted Date Diagnosed Date Resolved Date Angina of effort 12/03/2019 01/10/2020 Sprain of foot, unspecified site 08/26/2008 01/10/2020 documented as of this encounter (statuses as of 01/11/2023) [facility] + Plan note Future Appointments Appointment Date:08/12/2021 09:30:00 AM Scheduled Provider:MARIA TERESA GOFF DO Location:[facility] Appointment Type:PC OV Controlled [facility] Evaluation note* Diagnosis Upper respiratory tract infection, unspecified type- Primary documented in this encounter [facility] noteNo assessment information availableWWexner [facility] Work Phone: Evaluation note* Diagnosis Onset Date Resolution Status Closed fracture of left distal radius noneactive Closed fracture of left distal radius noneactive [id number] acute Carotid artery stenosis acut e History of coronary artery bypass surgery December, acute Benign hypertension chronic Hyperlipidemia chronic [id number] acute [id number] [facility] Work Phone: Evaluation note* Diagnosis Onset Date Resolution Status Closed fracture of left distal radius noneactive Closed fracture of left distal radius noneactive [id number] acute Carotid artery stenosis acut e History of coronary artery bypass surgery December, acute Benign hypertension chronic Hyperlipidemia chronic [id number] acute [id number] acute [id number] acute [facility] Work Phone: Evaluation note* Diagnosis Right lower quadrant abdominal pain- Primary Abdominal pain, right lower quadrant [facility] Diagnosis Onset Date Resolution Status Closed fracture of left distal radius noneactive Closed fracture of left distal radius noneactive [id number] acute Carotid artery stenosis acut e History of coronary artery bypass surgery December, acute Benign hypertension chronic Hyperlipidemia chronic [id number] acute [id number] acute [id number] acute Wrist fracture acute Diarrhea acute [facility] Work Phone: Evaluation note* Diagnosis Onset Date Resolution Status Arthritis of carpometacarpal (CMC) joint of left thumb acute DJD of left shoulder acute Right knee DJD acute Atherosclerotic heart diseas e of [place] coronary artery without angina pectoris acute History of coronary artery bypass surgery December, acute Benign hypertension chronic Hyperlipidemia chronic Right knee DJD acute Right knee DJD acute Right knee DJD acute [facility] Work Phone: Evaluation note* Diagnosis Hx of CABG- Primary Postsurgical aortocoronary bypass status Chest pain, unspecified type [facility] Diagnosis Onset Date Resolution Status Admit Date Exocrine pancreatic insufficiency ac miguel August 27, 2024 2:09pm [employer] Work Phone: Evaluation note* Diagnosis Onset Date Resolution Status Admit Date Atherosclerotic heart diseas e of [place] coronary artery without angina pectoris acute Septembe r 2024 2:11pm Chest pain, unspecified acute S eptember 2024 2:11pm Hyperlipidemia chronic January 03, 2025 2:11pm Hypertension chronic January 032024 2:11pm [employer] [facility] Work Phone: Hospital course Narrative No data available for this section [facility] Discharge instructions No data available for this section [facility] Discharge instructions Additional Instructions Thank you for trusting us with your care today! Please take Tylenol (2 pills, 650 mg), ibuprofen (2 pills, 400 mg) every 6 hours as needed for pain and fever control. If this does not control your pain please take Percocet. Please not take Tylenol and Percocet together as Percocet contains Tylenol. You should try to remain nonweightbearing your left upper extremity secondary to wrist fracture. Please return to the emergency department if your symptoms change or worsen. Specifically develop worsening pain, discoloration, numbness, coolness to touch of the involved extremity. Please follow with your primary care physician for further outpatient evaluation and management.[facility] Work Phone: Reason for referral (narrative)* Outpatient Procedure (Routine) - Authorized Specialty Diagnoses / Procedures Referred By Satya t Referred To Contact [facility] Diagnoses Hx of CABG Chest pain, unspecified type Procedures ECG COMPLETE ECG ROUTINE ECG W/LEAST 12 LDS W/I&R Taylor Blair MD [address] [place] [address] [facility] [address] [address] Referral ID Status Reason Start Date Expiration Date Visits Requested Visits Authorized [id number] Authorized Auto-Generat ed Referral 02/10/2024 02/09/2025 1 1 [facility] for referral (narrative)No reason for referral [facility] Work Phone: Summary Purpose Family History Relationship Condition Age at Onset Recorded Date/T [place] father Leukemia Unknown brother Cardiac disease Unknown mother Coronary artery disease Unknown Cardiac disease Unknown sister Chronic glomerulonephritis Unknown Malignant neoplasm of breast Unknown sister Cardiac disease Unknown Kidney disorder Unknown Advance Directives Advance Directive Response Recorded Date/ Time Advance Directives No August 20 9:30am Living Will No August 07, 2020 9:25pm Power of Marine Firer No August 07 9:25pm Advance Directive Response Recorded Date/ Time Advance Directives No August 20 9:30am Living Will No November 07, 2022 12:05pm Power of Marine Firer No November 07 12:05pm Advance Directive Response Recorded Date/ Time Advance Directives No December 03, 2022 10:43am Living Will No December 03 10:43am Power of Marine Firer No December 03, 023 10:43am Advance Directive Response Recorded Date/ Time Advance Directives No December 03, 2022 10:43am Living Will No February 08 12:06pm Power of Marine Firer No February 08, 2023 12:06pm Advance Directive Response Recorded Date/ Time Advance Directives No August 01, 024 12:06pm Hospital Course Note HNO ID: [id number] Author: Igor Chavez Service: Cardiac Surgery Author Type: Physician Type: Discharge Summary Filed: 12/31/2019 2:02 PM Note Text: DISCHARGE SUMMARY PATIENT NAME: Nadira Benítez Code Status: Not on file Highest Readmission Risk Score: 16 The 30 day readmissions risk score is derived from an internally validated risk model which evaluates patient level characteristics, utilization history, medication orders and lab results up until the day of discharge. Patients with a score of 40 or above are considered highest risk for readmission. Specific patient level drivers will be listed at the bottom of the summary. Admission Information Admission Information ADMIT DATE: 12/25/2019 DISCHARGE DATE: 12/31/2019 MY DOCTORS AND MEDICAL TEAM: My Main Hospital Doctor: Eleno Chavez Primary Care Provider: Maria Teresa Goff DO My Medical Team Members: Treatment Team: Attending Provider: Eleno Chavez Consulting: Eleno Chavez MY CONDITI (more content not included)... Note HNO ID: [id number] Author: Igor Chavez Service: Cardiovascular Surgery Author Type: Physician Type: Discharge Summary Filed: 01/10/2020 5:50 PM Note Text: DISCHARGE SUMMARY PATIENT NAME: Nadira Benítez Code Status: Not on file Highest Readmission Risk Score: 11 The 30 day readmissions risk score is derived from an internally validated risk model which evaluates patient level characteristics, utilization history, medication orders and lab results up until the day of discharge. Patients with a score of 40 or above are considered highest risk for readmission. Specific patient level drivers will be listed at the bottom of the summary. Admission Information Admission Information ADMIT DATE: 01/09/2020 DISCHARGE DATE: 01/10/2020 MY DOCTORS AND MEDICAL TEAM: My Main Hospital Doctor: Eleno Chavez Primary Care Provider: Maria Teresa Goff DO My Medical Team Members: Treatment Team: Attending Provider: Eleno Chavez Consulting: Man Diez MY CONDITION (more content not included)... Note HNO ID: [id number] Author: Torie Tate Service: Interventional Cardiology Author Type: Physician Type: HANDP Filed: 12/25/2019 10:01 AM Note Text: LEFT HEART CATHETERIZATION PROCEDURE NOTE Surgery/Procedure Date: 12/25/2019 Referring Physician: Clinical History: This is a 64 year old female with exertional angina and shortness of breath for cath Consent: Informed consent was obtained after the risks, benefits, and alternatives to and of this procedure were discussed in detail with the patient. Procedure in Detail: The patient was brought to the cardiac catheterization laboratory, prepped and draped in the usual sterile fashion. Anxiolysis was achieved with intravenous and intravenous benadryl. Local anesthesia was achieved over the groin with 1% lidocaine. A pre-flushed 6-Armenian sheath was inserted into the Right radial artery via the Seldinger technique without complications. Retrograde percutaneous diagnostic coronary angiography and left ventriculography were performed using (more content not included)... Note HNO ID: [id number] Author: Dharmesh Shetty CNP (Aprn Cnp) Service: Cardiac Surgery Author Type: Nurse Practitioner Type: Procedures Filed: 12/31/2019 10:01 AM Note Text: BEDSIDE PROCEDURE NOTE Epicardial Pacing wire removal Procedure Date/Start Time: 12/31/2019 9:30 AM Performed by: Ac Shetty CNP (Aprn Cnp) Authorized by: Ac Shetty CNP (Aprn Cnp) Pre-procedure Details: Personnel directly involved with the procedure wore the appropriate PPE. The area was prepped with alcohol and allowed to dry. Medications: Procedure Details: PLT 183. Pt transferred to bed. Ventricular epicardial pacing wires cleaned with EtOH, stay suture cute and wires pulled with minimal resistance. PT educated to rest in bed x 1 hour. Post-procedure Details: Patient tolerated the procedure well with no immediate complications Estimated Blood Loss: None Specimens Sent: None SIGNATURE: Ac Shetty APRN.CNP PATIENT NAME: Nadira eBnítez DATE: December 31, 2019 TIME: 9:59 AM PAGER/CONTACT #: [phone] (more content not included)... Procedure Findings Note HNO ID: [id number] Author: Torie Tate Service: Interventional Cardiology Author Type: Physician Type: HANDP Filed: 12/25/2019 10:01 AM Note Text: LEFT HEART CATHETERIZATION PROCEDURE NOTE Surgery/Procedure Date: 12/25/2019 Referring Physician: Clinical History: This is a 64 year old female with exertional angina and shortness of breath for cath Consent: Informed consent was obtained after the risks, benefits, and alternatives to and of this procedure were discussed in detail with the patient. Procedure in Detail: The patient was brought to the cardiac catheterization laboratory, prepped and draped in the usual sterile fashion. Anxiolysis was achieved with intravenous and intravenous benadryl. Local anesthesia was achieved over the groin with 1% lidocaine. A pre-flushed 6-Armenian sheath was inserted into the Right radial artery via the Seldinger technique without complications. Retrograde percutaneous diagnostic coronary angiography and left ventriculography were performed using (more content not included)... Note HNO ID: [id number] Author: Dharmesh walter (Rosalva Lorenzana) SALOMÓN Shetty Service: Cardiac Surgery Author Type: Nurse Practitioner Type: Procedures Filed: 12/31/2019 10:01 AM Note Text: BEDSIDE PROCEDURE NOTE Epicardial Pacing wire removal Procedure Date/Start Time: 12/31/2019 9:30 AM Performed by: Ac Shetty CNP (Aprn Cnp) Authorized by: Ac Shetty CNP (Aprn Cnp) Pre-procedure Details: Personnel directly involved with the procedure wore the appropriate PPE. The area was prepped with alcohol and allowed to dry. Medications: Procedure Details: PLT 183. Pt transferred to bed. Ventricular epicardial pacing wires cleaned with EtOH, stay suture cute and wires pulled with minimal resistance. PT educated to rest in bed x 1 hour. Post-procedure Details: Patient tolerated the procedure well with no immediate complications Estimated Blood Loss: None Specimens Sent: None SIGNATURE: Ac Shetty APRN.CNP PATIENT NAME: Nadira Benítez DATE: December 31, 2019 TIME: 9:59 AM PAGER/CONTACT #: [phone] (more content not included)... Chief Complaint and 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 Chief Complaint RE-EST. CARE/SELF RE F. CAROTID ARTERY STENOSIS 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 Atherosclerotic hear t disease of [place] coronary artery without angina pectoris Carotid artery stenosis History of coronary artery bypass surgery Premature atrial contraction Premature ventricular contraction Benign hypertension Hyperlipidemia Chief Complaint LEFT WIRST Chief Complaint LEFT WIRST LEFT WRIST Room 2 left wrist PREOP LEFT WRIST cast room 6 M FU LEFT WRIST room 1 LEFT WRIST Cast room CHEST PAIN CHEST PAIN 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 Closed fracture of l eft distal radius Closed fracture of left distal radius [id number] Carotid artery stenosis History of coronary artery bypass surgery Benign hypertension Hyperlipidemia [id number] Chief Complaint LEFT WIRST LEFT WRIST Room 2 left wrist PREOP open reduction internal fixation of left distal ra LEFT WRIST cast room 6 M FU LEFT WRIST room 1 LEFT WRIST Cast room CHEST PAIN CHEST PAIN LEFT WRIST Cast room 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 Closed fracture of l eft distal radius Closed fracture of left distal radius [id number] Carotid artery stenosis History of coronary artery bypass surgery Benign hypertension Hyperlipidemia [id number] Chief Complaint LEFT WIRST LEFT WRIST Room 2 left wrist PREOP open reduction internal fixation of left distal ra LEFT WRIST cast room 6 M FU LEFT WRIST room 1 LEFT WRIST Cast room CHEST PAIN CHEST PAIN LEFT WRIST Cast room LEFT WRIST Room 1 Consult INTRA-ARTICULAR FXLT RADIUS/RX HERE 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 Closed fracture of l eft distal radius Closed fracture of left distal radius [id number] Carotid artery stenosis History of coronary artery bypass surgery Benign hypertension Hyperlipidemia [id number] Wrist fracture Diarrhea Chief Complaint R19.7 LEFT HAND 4 M FU PREV PFM PT RIGHT KNEE RIGHT KNEE RIGHT KNEE 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 of coronary artery bypass surgery Benign hypertension Hyperlipidemia 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 Chief Complaint Admit Date PANCREATIC INSUFFICIENCY FLARE August 27, 2024 2:09pm 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 Admit Date Exocrine pancreatic insufficiency August 272024 2:09pm Chief Complaint Admit Date 1 Y FU January 03, 2025 2:11pm 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 Admit Date Atherosclerotic heart diseas e of [place] coronary artery without angina pectoris January 03, 2025 2:11pm Chest pain, unspecified January 03, 2025 2:11pm Hyperlipidemia January 03, 2025 2:11pm Hypertension January 03, 2025 2:11pm Additional Source Comments INFORMATION SOURCE (unrecogn ized section and content) DATE CREATED AUTHOR 03/23/2020 [facility] [place] DATE CREATED AUTHOR AUTHOR'S ORGANIZ ATION 05/31/2020 [facility] Center DATE CREATED AUTHOR AUTHOR'S ORGANIZ ATION 07/16/2020 [facility] DATE CREATED AUTHOR AUTHOR'S ORGANIZ ATION 01/15/2023 [facility] DATE CREATED AUTHOR AUTHOR'S ORGANIZ ATION 09/29/2023 [facility] ([place]) DATE CREATED AUTHOR AUTHOR'S ORGANIZ ATION 02/16/2024 [facility] DATE CREATED AUTHOR AUTHOR'S ORGANIZ ATION 02/19/2024 [facility]ter DATE CREATED AUTHOR AUTHOR'S ORGANIZ ATION 12/14/2024 [facility] DATE CREATED AUTHOR AUTHOR'S ORGANIZ ATION 02/17/2025 [facility] DATE CREATED AUTHOR AUTHOR'S ORGANIZ ATION 02/21/2025 [facility] Goals (unrecognized section and content) Goals may be documented in a n alternate section Source Comments (unrecognize d section and content) In the event this informatio n is protected by the Federal Confidentiality of Alcohol and Drug Abuse Patient Records regulations: The Federal rules restrict any use of the information to criminally investigate or prosecute any alcohol or drug abuse patient.[facility] the event this information is protected by the Federal Confidentiality of Alcohol and Drug Abuse Patient Records regulations: The Federal rules restrict any use of the information to criminally investigate or prosecute any alcohol or drug abuse patient.[facility] the event this information is protected by the Federal Confidentiality of Alcohol and Drug Abuse Patient Records regulations: The Federal rules restrict any use of the information to criminally investigate or prosecute any alcohol or drug abuse patient.[facility] the event this information is protected by the Federal Confidentiality of Alcohol and Drug Abuse Patient Records regulations: The Federal rules restrict any use of the information to criminally investigate or prosecute any alcohol or drug abuse patient.[facility] 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 (unrecogniz ed section and content) Reason Comments Sore Throat Fatigue, low grade f ever x 6 days Reason Comments Abdominal Pain X 2 months, has kelechi ro appt, Jan 21, BM's daily Reason Comments Appointment Reason Onset Date Comments New Patient 05/29/2024 Reason Onset Date Comments New Patient 05/29/2024 Cancelled Appointment 05/29/2024 Same day c ancellation Reason Onset Date Comments New Patient 08/14/2024 Reason Onset Date Comments New Patient 08/16/2024 Reason Onset Date Comments New Patient 11/30/2024 Reason Onset Date Comments New Patient 02/19/2025 Care Teams (unrecognized sec tion and content) Environmental Marketing Representative Relationship Specialty Start Date End Date Maria Teresa Goff DO PCP - General Family Medicine 12/19/14 Mack Berg MD [address] [place] [address] Family Medicine 02/01/20 Humberto Tate MD [address] [place] [address] Cardiology 02/01/20 Team Status: Active Member Role Status Dates Dr. Maria Teresa Goff DO Family Provider Active Dr. Maria Teresa Goff DO Primary Care Provider Active Team Status: Inactive Member Role Status Dates Dr. Maria Teresa Goff DO Primary Care Provider Active Dr. Ravinder Hager , DO Emergency Provider Active Team Status: Inactive Member Role Status Dates Dr. Maria Teresa Goff DO Primary Care Provider, Referri ng Provider Active Joanie MCALLISTER PA Attending Provider Active Team Status: Inactive Member Role Status Dates Dr. Maria Teresa Goff DO Primary Care Provider, Referri ng Provider Active Yanira MCALLISTER PA Attending Provider Active Team Status: Inactive Member Role Status Dates Dr. Maria Teresa Goff DO Primary Care Provider Active Dr. Mark Salazar MD Attending Provider Active Team Status: Inactive Member Role Status Dates Dr. Maria Teresa Goff DO Primary Care Provider, Referri ng Provider Active Dr. Kanu Braxton DO Attending Provider Active Team Status: Active Member Role Status Dates Dr. Maria Teresa Goff DO Primary Care Provider Active Dr. Ishaan Smalls MD Attending Provider Activ e Dr. Kanu Braxton DO Referring Provider Active Team Status: Active Member Role Status Dates Dr. Maria Teresa Goff DO Primary Care Provider Active Joanie MCALLISTER, PA Referring Provider, Other Provider Active Dr. Ishaan Smalls MD Attending Provider Activ e Team Status: Inactive Member Role Status Dates Dr. Maria Teresa Goff DO Primary Care Provider Active Joanie MCALLISTER, PA Attending Provider, Referr ing Provider Active Team Status: Inactive Member Role Status Dates Dr. Maria Teresa Goff DO Primary Care Provider Active Dr. Ravinder Hager , DO Attending Provider, Alyce coppola Active Team Status: Inactive Member Role Status Dates Dr. Mraia Teresa Goff DO Primary Care Provider Active Dr. Kanu Braxton , DO Attending Provider, Referring Provider Active Environmental Marketing Representative Relationship Specialty Start Date End Date Maria Teresa Goff DO PCP - General Family Medicine 12/19/14 Mack Berg MD [address] [place], [place] [id number] Family Medicine 02/01/20 Humberto Tate MD [address] [place], [place] [id number] Cardiology 02/01/20 Team Status: Inactive Member Role Status Dates Dr. Maria Teresa Goff DO Primary Care Provider, Referri ng Provider Active Dr. Mychal Steinberg , DO Attending Provider Active Team Status: Active Member Role Status Dates Dr. Maria Teresa Goff DO Primary Care Provider, Referri ng Provider Active Dr. Mychal Steinberg , DO Attending Provider, Other Prov ider Active Team Status: Active Member Role Status Dates Dr. Maria Teresa Goff DO Primary Care Provider Active Dr. Kanu Braxton , DO Attending Provider, Referring Provider Active Team Status: Inactive Member Role Status Dates Dr. Maria Teresa Goff DO Primary Care Provider Active Dr. Mychal Steinberg , DO Attending Provider Active Team Status: Inactive Member Role Status Dates Dr. Maria Teresa Goff DO Primary Care Provider, Referri ng Provider Active Joanie Samuels PA, PA Active Dr. Jd Deal MD Attending Provider Active Team Status: Inactive Member Role Status Dates Dr. Maria Teresa Goff DO Primary Care Provider Active Dr. Mychal Steinberg , DO Attending Provider, Referring Provider Active Environmental Marketing Representative Relationship Specialty Start Date End Date Maria Teresa Goff DO PCP - General Family Medicine 12/19/14 Mack Berg MD [address] [place], [place] [id number] Family Medicine 02/01/20 Humberto Tate MD [address] [facility] [place], [place] [id number] Cardiology 02/01/20 Environmental Marketing Representative Relationship Specialty Start Date End Date Maria Teresa Goff DO PCP - General Family Medicine 12/19/14 Mack Berg MD [address] [place] [address] Family Medicine 02/01/20 Humberto Tate MD [address] [facility] [address] [place], [place] [id number] Cardiology 02/01/20 Team Status: Inactive Member Role Status Dates Dr. Maria Teresa Goff DO Primary Care Provider Active Start: August 27, 2024 End: August 27, 2024 Dr. Maria Teresa Goff DO Referring Provider Active Start: August 27, 2024 End: August 27, 2024 REY Baird Attending Provider Active S tart: August 27, 2024 End: August 27, 2024 Team Status: Active Member Role/Relationship Status Dates Dr. Maria Teresa Goff DO Primary care physician Active Team Status: Inactive Member Role/Relationship Status Dates Dr. Maria Teresa Goff DO Primary care physician Active Start: January 03, 2025 End: January 03, 2025 Dr. Maria Teresa Goff DO Referring Provider Active Start: January 03, 2025 End: January 03, 2025 Rajat Saba NP, BIOLOGY LABORATORY ASSISTANT-C Attending physician Active Start: January 03, 2025 End: January 03, 2025 FOR RECORDS PERTAINING TO PATIENTS WHO ARE OR HAVE BEEN ENROLLED IN A CHEMICAL DEPENDENCY/SUBSTANCEABUSE PROGRAM, SOME INFORMATION MAY BE OMITTED. This clinical summary was aggregated from multiple sources. Caution should be exercised in using it in the provision of clinical care. This summary normalizes information from multiple sources, and as a consequence, information in this document may materially change the coding, format and clinical context of patient data. In addition, data may be omitted in some cases. CLINICAL DECISIONS SHOULD BE BASED ON THE PRIMARY CLINICAL RECORDS. [facility] [employer] [facility]. provides no warranty or guarantee of the accuracy or completeness of information in this document.
--- NOTE | 2025-03-05 18:25 | STRESSREP ---
Stress Test Report Pharmacologic myocardial perfusion stress test. 70-year-old lady with a history of chest pain. Resting EKG demonstrates normal sinus with a rate of 60 bpm. Resting blood pressure is 124/82 mmHg. 0.4 mg of regadenoson was infused per usual protocol followed by rapid intravenous saline flush injection. Continuous EKG monitoring was performed. The maximum heart rate was 79 bpm which was 52% of max impacted heart rate the maximum workload was 1 metabolic equivalent. At rest there were no ST or T wave changes noted to suggest ischemia and at peak infusion nonspecific ST changes were noted which did not meet the criteria for ischemia. No clinical angina is noted. The final blood pressure was 126/70 mmHg. Myocardial perfusion protocol. 12 mCi of technetium 99m sestamibi was injected at rest. 0.4 mg of regadenoson was infused per usual protocol. At peak infusion 34.6 mCi of technetium 99m sestamibi was injected stress images were obtained stress and rest images were reconstructed and compared in the short axis vertical long and horizontal long axis. Gated images were also obtained. Perfusion SPECT analysis: Review of the stress images demonstrate normal uptake of tracer noted in all areas of the myocardium. The resting images similar demonstrated normal uptake of tracer noted in all areas of the myocardium. No areas of reversibility are noted to suggest ischemia and no previous infarct is noted. Gated SPECT analysis: The gated ejection fraction is 75%. Conclusion: Normal pharmacologic myocardial perfusion stress test. Preserved ejection fraction.
== END | disposition home or self-care (01) ==
PROVIDERS: PCP Nurse Practitioner Family; Referring Provider Nurse Practitioner Family; Visit Provider Nurse Practitioner Family
DX: R07.2 Precordial pain (principal); I25.10 Atherosclerotic heart disease of native coronary artery without angina pectoris; Z95.1 Presence of aortocoronary bypass graft
CPT/HCPCS: 78452; 93017; A9500; A4216; J2785